=== PATIENT | female | born 1970 | race Caucasian/White ===

== ENCOUNTER 2023-04-11 19:46 | Outpatient (REF) | payer OTHER, SELFPAY ==
[2023-04-16 15:08] LABS: Age Gdln ACOG Testing Note (.); HPV Aptima Negative (Negative); IGP, Aptima HPV, rfx 16/18,45 Note (.)
== END 2023-04-11 19:47 | disposition home or self-care (01) ==
LOC: LAB 19:46
PROVIDERS: Visit Provider Obstetrics & Gynecology
DX: Z01.419 Encounter for gynecological examination (general) (routine) without abnormal findings (principal)
CPT/HCPCS: G0145

== ENCOUNTER 2023-05-30 07:51 | Outpatient (OUT) | payer OTHER, SELFPAY ==
--- NOTE | 2023-05-30 07:59 | MM_ITS ---
Patient Name: MARNIE THOMAS MR#: [id number] : 1970 Exam Date: 05/30/2023 Ordering Doctor: JACQUES CALLOWAY . RADIOLOGY REPORT PROCEDURE: MM TOMOSYNTHESIS SCREENING BI COMPARISON: MG MAMM SCREEN 3D GLORIA CAD, 01/06/2021. MG MAMM SCREEN GLORIA W CAD, 12/19/2019. MG MAMM SCREEN GLORIA W CAD, 10/21/2018. MG MAMM SCREEN GLORIA W CAD, 07/11/2013. INDICATIONS: Screening Calculator Name NCI Breast Cancer Risk Assessment Tool 5 Year Breast Cancer Risk 1.60% Lifetime Breast Cancer Risk 11.40% Personal Breast Cancer No Personal Ovarian Cancer No Treatments None Family Cancers Mother with lymphoma cancer at age 50; Mother with meningioma cancer at age 60. LOCATION: [facility] BREAST COMPOSITION: Scattered areas fibroglandular density. FINDINGS: DIAGNOSTIC CATEGORY 2--BENIGN FINDING: RIGHT BREAST: No significant suspicious finding. Scattered benign-appearing calcifications are present. Scattered benign-appearing lymph nodes are present. No significant change has occurred. LEFT BREAST: No significant suspicious finding. Scattered benign-appearing calcifications are present. Scattered benign-appearing lymph nodes are present. No significant change has occurred. RECOMMENDATIONS: ROUTINE MAMMOGRAM AND CLINICAL EVALUATION IN 12 MONTHS. PLEASE NOTE: A NORMAL MAMMOGRAM DOES NOT EXCLUDE THE POSSIBILITY OF BREAST CANCER. A CLINICALLY SUSPICIOUS PALPABLE LUMP SHOULD BE BIOPSIED. Dictated by: Demar Mills M.D. on 06/05/2023 at 11:55 Approved by: Demar Mills M.D. on 06/05/2023 at 11:59
--- NOTE | 2023-05-30 08:00 | XR_ITS ---
[place] [id number] Patient Name: MARNIE THOMAS MRN: [id number] date: 1970 Sex: F Assigned Patient Location: [facility] Current Patient Location: [facility] Accession/Order Number: [id number] Exam Date: 05/30/2023 08:15 Report Date: 05/30/2023 12:18 At the request of: HARMONY CALLOWAY Procedure: XR DEXA axial skeleton EXAM: XR DEXA axial skeleton HISTORY: Screening For Osteoporosis Z13.820 COMPARISON: None. TECHNIQUE: Routine DEXA scan lumbar spine and bilateral hips. FINDINGS: L1-L4: Bone mineral density 1.199 g/sq cm and T score 0.2 Left femoral neck: Bone mineral density 0.892 g/sq cm and T score -1.0 Left hip total: Bone mineral density 1.076 g/sq cm and T score 0.5 Right femoral neck: Bone mineral density 0.945 g/sq cm and T score -0.7 Right hip total: Bone mineral density 1.084 g/sq cm and T score 0.6 XR/XR DEXA axial skeleton IMPRESSION: Normal bone mineral density. Electronically authenticated by: PRETTY STUART Date: 05/30/2023 12:18
== END 2023-05-30 07:52 | disposition home or self-care (01) ==
LOC: MAMMO 07:51
PROVIDERS: Visit Provider Physician Assistant
DX: Z12.31 Encounter for screening mammogram for malignant neoplasm of breast (principal); Z13.820 Encounter for screening for osteoporosis; Z80.7 Family history of other malignant neoplasms of lymphoid, hematopoietic and related tissues; Z80.8 Family history of malignant neoplasm of other organs or systems
CPT/HCPCS: 77063; 77067; 77080

== ENCOUNTER 2024-04-14 20:37 | Outpatient (REF) | payer OTHER, SELFPAY ==
--- OUTSIDE RECORDS SUMMARY | 2024-04-14 20:42 | XMS_ITS | CCD ---
Author Organization [facility] Care Team Providers Care Receipt And Report Clerk Name Role Phone PATRICIA, DR HUGGINS Consulting Unavailable KARASIK, DR HUGGINS Admitting Unavailable DEFRANCE, DR GOTTI Primary Care Unavailable KARASIK, DR HUGGINS Attending Unavailable KARASIK, DR HUGGINS Attending Unavailable KARASIK, DR HUGGINS Consulting Unavailable DEFRANCE, DR GOTTI Primary Care Unavailable KARASIK, DR HUGGINS Admitting Unavailable ZIEBER, DR AMARI Gonzalez Consulting Unavailable ROSSAKIL Admitting Unavailable DEFRANCE, DR GOTTI Primary Care Unavailable AKIL RODRIGUEZ Attending Unavailable JENNIFER, AKIL Consulting Unavailable NILL, DR BAIN Admitting Unavailable DEFRANCE, DR GOTTI Primary Care Unavailable NILL, DR BAIN Attending Unavailable NILL, DR BAIN Consulting Unavailable DORKOSKJOSE GUADALUPE, DEIRDRE Consulting Unavailable Claire De Los Santos DO Primary Care Provider Ana María Mckeon Primary Care Provider CLAIRE DE LOS SANTOS Primary Care Unavailab le RAJA, JASIEL Referring Unavailable [facility] PARKCristian WHYTE Primary Care Provide r Ana María Mckeon Unavailable Ana María Mckeon Primary Care Provider CLAIRE DE LOS SANTOS Attending Unavailable ANA MARÍA MCKEON Primary Care Unavaila ble LYLY, ZEFERINO Referring Unavailable ANA MARÍA MCKEON Primary Care Unavaila ble LYLY, ZEFERINO Referring Unavailable ANA MARÍA MCKEON Primary Care Unavaila ble LYLY, ZEFERINO Referring Unavailable CLAIRE DE LOS SANTOS Primary Care Unavailab le RAJA, JASIEL Referring Unavailable SERIRMA, ROC Attending Unavailable ANA MARÍA MCKEON Primary Care Unavaila ble LYLY, ZEFERINO Referring Unavailable CLAIRE DE LOS SANTOS Primary Care Unavailab le RAJA, JASIEL Attending Unavailable RAJA, JASIEL Admitting Unavailable ANA MARÍA MCKEON Primary Care Unavaila ble KANDY VALLECILLO Attending Unavailable MELISSA HAILE Referring Unavailable DE YANETH, ANA MARÍA PEPPER Primary Care Unavaila ble LYLY, ZEFERINO Attending Unavailable DE YANETH, ANA MARÍA PEPPER Primary Care Unavaila ble LYLY, ZEFERINO Referring Unavailable DE YANETH, ANA MARÍA PEPPER Primary Care Unavaila ble DE YANETH, ANA MARÍA PEPPER Primary Care Unavaila ble DE YANETH, ANA MARÍA PEPPER Primary Care Unavaila ble RAJA, JASIEL Attending Unavailable DE YANETH, ANA MARÍA PEPPER Primary Care Unavaila ble RAJA, JASIEL Referring Unavailable DE YANETH, ANA MARÍA PEPPER Primary Care Unavaila ble RAJA, JASIEL Referring Unavailable DE YANETH, ANA MARÍA PEPPER Primary Care Unavaila ble RAJA, JASIEL Referring Unavailable DE YANETH, ANA MARÍA PEPPER Primary Care Unavaila ble RAJA, JASIEL Referring Unavailable DE YANETH, ANA MARÍA PEPPER Primary Care Unavaila ble LYLY, ZEFERINO Referring Unavailable DE YANETH, ANA MARÍA PEPPER Primary Care Unavaila ble LYLY, ZEFERINO Referring Unavailable DE YANETH, ANA MARÍA PEPPER Primary Care Unavaila ble LYLY, ZEFERINO Referring Unavailable DE YANETH, ANA MARÍA PEPPER Primary Care Unavaila ble LYLY, ZEFERINO Referring Unavailable DE YANETH, ANA MARÍA PEPPER Primary Care Unavaila ble LYLY, ZEFERINO Referring Unavailable DE YANETH, ANA MARÍA PEPPER Primary Care Unavaila ble LYLY, ZEFERINO Referring Unavailable DE YANETH, ANA MARÍA PEPPER Primary Care Unavaila ble LYLY, ZEFERINO Attending Unavailable DE YANETH, ANA MARÍA PEPPER Primary Care Unavaila ble LYLY, ZEFERINO Referring Unavailable DE YANETH, ANA MARÍA PEPPER Primary Care Unavaila ble LYLY, ZEFERINO Referring Unavailable DE YANETH, ANA MARÍA PEPPER Primary Care Unavaila ble LYLY, ZEFERINO Referring Unavailable DE YANETH, ANA MARÍA PEPPER Primary Care Unavaila ble LYLY, ZEFERINO Referring Unavailable DE YANETH, ANA MARÍA PEPPER Primary Care Unavaila ble LYLY, ZEFERINO Attending Unavailable DE YANETH, ANA MARÍA PEPPER Primary Care Unavaila ble DAVID DSOUZA Attending Unavailable DE YANETH, ANA MARÍA PEPPER Primary Care Unavaila ble KANDY VALLECILLO Attending Unavailable DE YANETH, ANA MARÍA PEPPER Primary Care Unavaila ble LYLY, ZEFERINO Attending Unavailable LYLY, ZEFERINO Referring Unavailable DE YANETH, ANA MARÍA PEPPER Primary Care Unavaila ble DE YANETH, ANA MARÍA PEPPER Primary Care Unavaila ble LYLY, ZEFERINO Attending Unavailable KANDY VALLECILLO Referring Unavailable DE YANETH, ANA MARÍA PEPPER Primary Care Unavaila ble SERHAL, ROC Referring Unavailable DE YANETH, ANA MARÍA PEPPER Primary Care Unavaila ble SERHAL, ROC Referring Unavailable QUINTEN RUIZ Attending Unavailable DE YANETH, ANA MARÍA PEPPER Primary Care Unavaila ble DE YANETH, ANA MARÍA PEPPER Primary Care Unavaila ble LYLY, ZEFERINO Attending Unavailable DE YANETH, ANA MARÍA PEPPER Primary Care Unavaila ble LYLY, ZEFERINO Referring Unavailable CLAIRE DE LOS SANTOS Primary Care Unavailab DAVID Williamson Attending Unavailable DE YANETH, ANA MARÍA PEPPER Primary Care Unavaila ble LYLY, ZEFERINO Attending Unavailable DE YANETH, ANA MARÍA PEPPER Primary Care Unavaila ble LYLY, ZEFERINO Referring Unavailable DE YANETH, ANA MARÍA PEPPER Primary Care Unavaila ble LYLY, ZEFERINO Referring Unavailable DE YANETH, ANA MARÍA PEPPER Primary Care Unavaila ble LYLY, ZEFERINO Referring Unavailable DE YANETH, ANA MARÍA PEPPER Primary Care Unavaila ble LYLY, ZEFERINO Referring Unavailable DE YANETH, ANA MARÍA PEPPER Primary Care Unavaila ble LYLY, ZEFERINO Attending Unavailable DE YANETH, ANA MARÍA PEPPER Primary Care Unavaila ble LYLY, ZEFERINO Referring Unavailable DE YANETH, ANA MARÍA PEPPER Primary Care Unavaila ble WEGAKANDY Strickland Referring Unavailable DE YANETH, ANA MARÍA PEPPER Primary Care Unavaila ble LYLY, ZEFERINO Referring Unavailable DE YANETH, ANA MARÍA PEPPER Primary Care Unavaila ble DE YANETH, ANA MARÍA PEPPER Primary Care Unavaila ble LYLY, ZEFERINO Attending Unavailable LYLY, ZEFERINO Referring Unavailable DE YANETH, ANA MARÍA PEPPER Primary Care Unavaila ble LYLY, ZEFERINO Attending Unavailable DE YANETH, ANA MARÍA PEPPER Primary Care Unavaila ble LYLY, ZEFERINO Referring Unavailable DE YANETH, ANA MARÍA PEPPER Primary Care Unavaila ble LYLY, ZEFERINO Referring Unavailable DE YANETH, ANA MARÍA PEPPER Primary Care Unavaila ble LYLY, ZEFERINO Referring Unavailable DE YANETH, ANA MARÍA PEPPER Primary Care Unavaila ble LYLY, ZEFERINO Referring Unavailable CLAIRE DE LOS SANTOS Primary Care Unavailab le DAVE TURNERA Attending Unavailable CLAIRE DE LOS SANTOS Primary Care Unavailab le RAJA, JASIEL Referring Unavailable CLAIRE DE LOS SANTOS Primary Care Unavailab le YUE, JASIEL Referring Unavailable CRISTIAN TEIXEIRA Attending Unavailable CRISTIAN TEIXEIRA Referring Unavailable CRISTIAN TEIXEIRA Primary Care Unavailable CRISTIAN TEIXEIRA Attending Unavailable CRISTIAN TEIXEIRA Referring Unavailable CRISTIAN TEIXEIRA Primary Care Unavailable Medications Current Medications Medication Drug Class(es) Dates Sig (Normalized) Sig (Original) acetaminophen 500 mg oral tablet (4 sources) Start: 09-15-2023 End: 09-22-2023 take 2 tablets by mouth every six hours acetaminophen (TYLENOL) 500 mg tablet Indications: Postoperative pain , Thymoma , Myasthenia gravis without exacerbation (HCC) Take 2 tablets by mouth every 6 hours for 7 days. 56 tablet 0 09/15/2023 09/22/2023 Active Comment on above: Take 2 tablets by [facility] every 6 hours for 7 days. cholecalciferol, vitamin D3, (VITAMIN D3 ORAL) (20 sources) cholecalciferol, vitamin D3, (VITAMIN D3 ORAL) Take by mouth once daily. Active cholecalciferol, vitamin D3, (VITAMIN D3 ORAL) Take by mouth once daily. 0 Active cholecalciferol, vitamin D3, (VITAMIN D3 ORAL) Take by mouth. 0 Active Comment on above: Take by mouth. iv contrast (will be provided with radiology test) (6 sources) Start: 10-29-2023 End: 10-30-2023 iv contrast (will be provide d with radiology test) CT Chest W -Inject, intravenously, once for 1 dose.No IV access, insert saline lock prior to the beginning of sedation, infusion, injection of imaging exam. Discontinue saline lock post exam. If Pt. has a central line or IVAD, may access for administration according to line specific nursing protocol. Once exam is complete flush line and de-access according to line specific nursing protocol in the CT contrast administration guidelines link. 1 Each 0 10/29/2023 10/30/2023 Active Start: 10-11-2023 End: 10-12-2023 iv contrast (will be provide d with radiology test) CT Chest W -Inject, intravenously, once for 1 dose.No IV access, insert saline lock prior to the beginning of sedation, infusion, injection of imaging exam. Discontinue saline lock post exam. If Pt. has a central line or IVAD, may access for administration according to line specific nursing protocol. Once exam is complete flush line and de-access according to line specific nursing protocol in the CT contrast administration guidelines link. 1 Each 10/11/2023 10/12/2023 Start: 10-11-2023 End: 10-12-2023 iv contrast (will be provide d with radiology test) CT Chest W -Inject, intravenously, once for 1 dose.No IV access, insert saline lock prior to the beginning of sedation, infusion, injection of imaging exam. Discontinue saline lock post exam. If Pt. has a central line or IVAD, may access for administration according to line specific nursing protocol. Once exam is complete flush line and de-access according to line specific nursing protocol in the CT contrast administration guidelines link. 1 Each 0 10/11/2023 10/12/2023 Start: 10-11-2023 End: 10-12-2023 iv contrast (will be provide d with radiology test) CT Chest W -Inject, intravenously, once for 1 dose.No IV access, insert saline lock prior to the beginning of sedation, infusion, injection of imaging exam. Discontinue saline lock post exam. If Pt. has a central line or IVAD, may access for administration according to line specific nursing protocol. Once exam is complete flush line and de-access according to line specific nursing protocol in the CT contrast administration guidelines link. 1 Each 0 10/11/2023 10/12/2023 Active Comment on above: CT Chest W -Inject, intravenously, once for 1 dose.No IV access, insert saline lock prior to the beginning of sedation, infusion, injection of imaging exam. Discontinue saline lock post exam. If Pt. has a central line or IVAD, may access for administration according to line specific nursing protocol. Once exam is complete flush line and de-access according to line specific nursing protocol in the CT contrast administration guidelines link. oxyCODONE hydrochloride 5 mg oral tablet (4 sources) Opioid Agonist Start: 09-15-19 End: 09-22-19 take 1 tablet by mouth every six hours as needed for pain oxyCODONE IR (ROXICODONE) 5 mg immediate release tablet Indications: Myasthenia gravis (HCC) , Postoperative pain , Thymoma Take 1 tablet by mouth every 6 hours as needed for pain for up to 7 days. 28 tablet 0 09/15/2023 09/22/2023 Active Comment on above: Take 1 tablet by [facility] every 6 hours as needed for pain for up to 7 days. polyethylene glycol 3350 61060 mg powder for oral solution (4 sources) Osmotic Laxative Start: 09-15-19 End: 09-22-19 polyethylene glycol 3350 17 gram packet Take 1 Packet by mouth once daily for 7 days. For prevention of postoperative opioid induced constipation.. Dissolve dose in 4 - 8 ounces of liquid and take as directed. 7 Packet 0 09/15/2023 09/22/2023 Active Comment on above: Take 1 Packet by [facility] once daily for 7 days. For prevention of postoperative opioid induced constipation.. Dissolve dose in 4 - 8 ounces of liquid and take as directed. predniSONE 2.5 mg oral tablet (20 sources) Start: 02-06-20 End: 03-07-20 take 1 tablet by mouth once daily predniSONE (DELTASONE) 2.5 mg tablet Take 1 tablet by mouth once daily. 30 tablet 0 02/06/2024 03/07/2024 Active Start: 10-29-2023 End: 04-26-2024 take 1.5 tablets by mouth once daily predniSONE (DELTASONE) 10 mg tablet Take 1.5 tablets by mouth once daily. 135 tablet 1 10/29/2023 04/26/2024 Active Start: 07-23-2023 End: 02-26-2024 take 2 tablets by mouth once daily predniSONE (DELTASONE) 10 mg tablet Take 2 tablets by mouth once daily. 180 tablet 1 08/30/2023 10/29/2023 Discontinued Comment on above: Take 2 tablets by [facility] once daily. Completed/Discontinued Medications Medication Drug Class(es) Dates Sig (Normalized) Sig (Original) ibuprofen 600 mg oral tablet (20 sources) Nonsteroidal Anti-inflammatory Drug Start: 09-15-2023 End: 11-29-2023 take 1 tablet by mouth every six hours as needed for pain ibuprofen (MOTRIN) 600 mg tablet Indications: Myasthenia gravis (HCC) , Postoperative pain , Thymoma Take 1 tablet by mouth every 6 hours as needed for pain. 60 tablet 09/15/2023 11/29/2023 Discontinued Comment on above: Take 1 tablet by [facility] every 6 hours as needed for pain. mupirocin 0.02 mg/mg topical ointment (1 source) RNA Synthetase Inhibitor Antibacterial Start: 09-12-2023 mupirocin (BACTROBAN) 2 % ointment Apply a small amount in each nostril using a cotton swab twice the day before surgery and once the morning of surgery. 22 g 0 09/12/2023 Active Comment on above: Apply a small amount in each nostril using a cotton swab twice the day before surgery and once the morning of surgery. pyridostigmine bromide 30 mg oral tablet (20 sources) Start: 08-07-2023 End: 02-26-2024 take 1 tablet by mouth four times daily pyRIDostigmine bromide 30 mg tab Take 1 tablet by mouth four times daily. 360 tablet 1 08/30/2023 02/26/2024 Comment on above: Take 1 tablet by [facility] four times daily. Problems Active Problems Problem Classification Problem Date Documented Date Episodic/Chronic Cancer; other and unspecified primary (2 sources) Malignant tumor of thymus; Translations: [Malignant neoplasm of thymus] 10-29-2023 Chronic Cancer; other and unspecified primary (1 source) Malignant neoplasm of thymus; Translations: [Malignant neoplasm of thymus (HCC)] Onset: 10-16-2023 Chronic Immunizations and screening for infectious disease (5 sources) Encounter for immunization; Translations: [Encounter for screening for human papillomavirus (HPV)] Onset: 12-14-2020 Episodic Other aftercare (1 source) Surgical follow-up; Translations: [Encounter for follow-up examination after completed treatment for conditions other than malignant neoplasm] 09-21-2023 Episodic Other and unspecified benign neoplasm (1 source) Benign neoplasm of thymus; Translations: [Benign neoplasm of thymus] 09-12-2023 Episodic Other liver diseases (1 source) Lesion of liver; Translations: [Liver disease, unspecified] 08-28-2023 Chronic Other liver diseases (2 sources) Liver disease, unspecified; Translations: [Lesion of liver] Onset: 08-06-2023 Chronic Other nervous system disorders (12 sources) Myasthenia gravis; Translations: [Myasthenia gravis without (acute) exacerbation] Onset: 06-13-2023 08-24-2023 Chronic Other nervous system disorders (20 sources) Myasthenia gravis without exacerbation; Translations: [Myasthenia gravis without (acute) exacerbation] 09-14-2023 Chronic Other nervous system disorders (3 sources) Myasthenia gravis without (acute) exacerbation; Translations: [Myasthenia gravis without exacerbation (HCC)] Onset: 08-17-2023 Chronic Other upper respiratory disease (1 source) Mediastinal mass; Translations: [Other diseases of mediastinum, not elsewhere classified] 08-28-2023 Episodic Thyroid disorders (20 sources) Multinodular goiter; Translations: [Nontoxic multinodular goiter] Onset: 08-18-2023 08-18-2023 Chronic Unclassified (1 source) Annual Exam Onset: 09-05-2023 Past or Other Problems Problem Classification Problem Date Documented Date Episodic/Chronic Mood disorders (2 sources) Mood disorders Onset: 02-04-2020 02-04-2020 Neoplasms of unspecified nature or uncertain behavior (20 sources) Thymoma; Translations: [Neoplasm of unspecified behavior of other specified sites] Onset: 09-13-2023 09-14-2023 Episodic Other aftercare (1 source) Encounter for follow-up examination after completed treatment for conditions other than malignant neoplasm; Translations: [Follow-up examination following surgery] Onset: 09-21-2023 Episodic Other nervous system disorders (20 sources) Postoperative pain ; Translations: [Other acute postprocedural pain] Onset: 09-13-2023 09-14-2023 Episodic Other nervous system disorders (1 source) Other acute postprocedural pain; Translations: [Postoperative pain] Onset: 09-14-2023 Episodic Other screening for suspected conditions (not mental disorders or infectious disease) (20 sources) Encounter for screening for malignant neoplasm of colon; Translations: [Encounter for screening mammogram for malignant neoplasm of breast] Onset: 12-07-2020 Episodic Other upper respiratory disease (2 sources) Other diseases of mediastinum, not elsewhere classified; Translations: [Mediastinal mass] Onset: 08-17-2023 Episodic Residual codes; unclassified (1 source) Acquired absence of both cervix and uterus; Translations: [ACQUIRED ABSENCE BOTH CERVIX AND UTERUS] Onset: 01-26-2021 Episodic Residual codes; unclassified (1 source) Asymptomatic menopausal state; Translations: [ASYMPTOMATIC MENOPAUSAL STATE] Onset: 01-14-2021 Episodic Residual codes; unclassified (1 source) Family history of other malignant neoplasms of lymphoid, hematopoietic and related tissues; Translations: [FAM HX OTH MAL ENID LYMPH HEMATPOETC] Onset: 01-14-2021 Episodic Residual codes; unclassified (1 source) Family history of malignant neoplasm of other organs or systems; Translations: [FAM HX MALIG NEOPLASM OTH ORGN/SYS] Onset: 01-14-2021 Episodic Residual codes; unclassified (20 sources) Problem with continuity of care; Translations: [Problem with continuity of care] Onset: 09-13-2023 09-14-2023 Episodic Unclassified (2 sources) Onset: 02-04-2020 02-04-2020 Results Test Name Value Interpretation Reference Range Facility [facility] 02-06-2024 CNOV Office Visit (NENMMN ) ----- MARNIE ARANA ([id number]) 1970 F Date Time Provider Department 02/06/24 11:30 AM QUINTEN RUIZ During your visit today, we recorded the following information about you: Pulse Blood pressure Weight Height 63/minute 141/76 101.5 kg 1.6 m Quinten Ruiz MD 02/08/2024 9:57 AM Signed I saw Marnie Arana at the [facility] on 02/06/24 in follow up for thymomatous seropositive MG (ocular). HPI: Ms. 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 At that visit was undergoing radiation for thymoma. Ocular MG symptoms very well controlled so weaned prednisone down to 10 mg/day. Since their last visit: Prednisone adriana reduced to 10 mg/day Finished radiation! Going to be monitoring tymoma with CT scans. Regarding her MG symptoms her vision has been basically normal. She only used mestinon once in the morning. Hasn't needed a second mestinon dose in a long time. No double vision or blurry vision. No needing prisms any more. No eyelid ptosis. No other symptoms of MG. Does have some dyspepsia. Weight is down. 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 ROS: Pertinent positive and negative systems reviewed in HPI. Medications: Current Outpatient Medications Medication Sig ibuprofen (MOTRIN) 600 mg tablet Take 1 tablet by mouth every 6 hours as needed for pain. predniSONE (DELTASONE) 10 mg tablet Take 1.5 tablets by mouth once daily. cholecalciferol, vitamin D3, (VITAMIN D3 ORAL) Take by mouth once daily. pyRIDostigmine bromide 30 mg tab Take 1 tablet by mouth four times daily. No current facility-administered medications for this visit. Allergies: ALLERGIES No Known Allergies Exam: 02/06/24 1125 BP: 141/76 BP Site: Right Arm BP Position: Sitting BP Cuff Size: Regular Adult Pulse: 63 SpO2: 96% Weight: 101.5 kg (223 lb 12.8 oz) Height: 160 cm (5' 3 ) Gen: appears stated age, no acute distress Neuro: MS: awake, alert, oriented to detailed history. Language fluent. Cranial nerves: No ocular misalingment on cross cover. EOMI. No eye closure weakness. Lower facial muscles and tongue strong. No dysarthria. Head flexion full strength. Motor: Muscle bulk and tone normal. Strength proximally and distally in all four extremities was 5/5. Coordination: No evidence of ataxia Gait: Casual gait normal. 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 Neurologic exam is normal so would classify currently as pharmacologic remission. Will continue slow steroid taper and monitor for any symptom recurrence. Plan: Reduce prednisone to 7.5 mg x 1 month Then reduce prednisone to 5 mg until follow up (refills through [facility]) Continue pyridostigmine PRN Continue vitamin D RV in 2-3 months Quinten Ruiz MD Neurological [facility] [address] [place] [address] I spent a total of 30 minutes on the date of the service which included preparing to see the patient, [id number] patient care, completing clinical documentation, obtaining and/or reviewing separately obtained history, performing a medically appropriate examination, counseling and educating the patient/family/caregiver, and ordering medications, tests, or procedures. Answers submitted by the patient for this visit: Activities of Daily Living (MG-ADL) (Submitted on 01/30/2024) Talkin=Normal Chewin=Normal Swallowin=Normal Breathin=Normal Impairment of ability to brush teeth or comb hair: 0=None Impairment of ability to rise from a chair: 0=None Double vision: 1=Occurs, but not daily Eyelid droop: 0=None Quinten Ruiz MD 02/06/2024 11:57 AM Signed Our plan: Continue the pyridostigmine Feb 06: go down on prednisone to 7.5 mg per day x 1 month After a month if symptoms are still well controlled go down to 5 mg per day until your follow up with me (apr 29) Let me know when you need a refill on the prednisone and I can update the prescription for 5 mg tablets through [facility] Continue vitamin D while on steroids Allergies As of Date: 02/06/2024 (No Known Allergies) Date Reviewed: 02/06/2024 Reviewed by: Gurjit Flores LPN - Fully Assessed Reason for Visit: Established Patient [[id number]] Primary Visit Diagnosis:Myasthenia gravis ([facility]) [G70.00] Order(s):predniSONE (DELTASONE) 2.5 mg tabletTake 1 tablet by mouth once daily.Disp: 30 tabletRfl: 0 Prescriptions as of 02/08/2024 - predniSONE (DELTASONE) 2.5 mg tablet Take 1 tablet by mouth once daily. - ibuprofen (MOTRIN) 600 mg tablet Take 1 tablet by mouth every 6 (more content not included)... Normal [facility] CNOVon 01-03-2024 CNOV Office Visit (RADTSA ) ----- SUMITMARNIE LEVY ([id number]) 1970 F Date Time Provider Department 01/03/24 2:00 PM ZEFERINO DESOUZA RADTSA During your visit today, we recorded the following information about you: Temperature Pulse Respiration Blood pressure 97.6 degrees 74/minute 18/minute 127/71 Weight 104.7 kg Zeferino Desouza MD 01/15/2024 5:38 AM Addendum Radiation Oncology - Follow Up Note PATIENT NAME: Marnie Arana PATIENT DIAGNOSIS/PATIENT IDENTIFICATION: Ms. Arana is a 53-year-old woman diagnosed with Stage I, [id number] (AJCC)/Stage IIa ([place]) thymoma (Type AB) status post bilateral robotic-assisted VATS total thymectomy on 09/13/[address] Turner. 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 Tumor was noted to be present at the anterior and posterior margins of the specimen (R1). She completed a course of post-operative radiation therapy to the post-operative bed/chest on 11/30/2023 (5400 cGy delivered in 27 fractions). Ms. Arana returns to clinic today for routine follow-up approximately one month after the completion of her radiation treatments. In the interim, she continues to do well and denies any pain/discomfort in the neck/upper chest and reports no skin issues or sore throat and is able to swallow well. She reports no change in her breathing and has developed no cough and has intact voice. She does endorse good energy good appetite and hydration and stable weight. She continues to work on her vision issues with her neurology team and continues on pyridostigmine and is being weaned off her prednisone. Ms. Arana well approximately 1 month out with no new issues related to her radiation treatment to the chest. She is scheduled for initial posttreatment imaging with CT of the chest on 04/29/2024 and has follow-up with her thoracic surgery team to review results. I will plan to see her back in approximately 4 months for follow-up. The patient is aware to contact the clinic in the interim should any questions or concerns arise. Thank you for allowing us to participate in the care of this patient. Signed by: Zeferino Desouza MD This document has been created with the use of voice recognition technology. It may contain inaccuracies, misspellings, inaccurate syntax or inappropriate word context that are a result of the inadequacies/shortcomings of said technology/software. Allergies As of Date: 01/03/2024 (No Known Allergies) Date Reviewed: 01/03/2024 Reviewed by: Ksenia Carrillo MA - Fully Assessed Reason for Visit: thymoma [Other] Cmt: Follow up Primary Visit Diagnosis:Thymoma [D49.89] Prescriptions as of 01/15/2024 - ibuprofen (MOTRIN) 600 mg tablet Take 1 tablet by mouth every 6 hours as needed for pain. - predniSONE (DELTASONE) 10 mg tablet Take 1.5 tablets by mouth once daily. - cholecalciferol, vitamin D3, (VITAMIN D3 ORAL) Take by mouth once daily. - pyRIDostigmine bromide 30 mg tab Take 1 tablet by mouth four times daily. Problem List As Of Date 01/03/2024 Noted Resolved Multiple thyroid nodules [E04.2] 08/18/2023 Abnormal results of thyroid function studies [R*08/18/2023 Thymoma [D49.89] 09/13/2023 Postoperative pain [G89.18] 09/13/2023 Summary [Z91.199] 09/13/2023 Myasthenia gravis without exacerbation (HCC) [G* Follow-up and Disposition History for Encounter Date Provider Department Center 01/03/2024 [id number] DESOUZA Sondra Encounter Status:Closed by ZEFERINO DESOUZA on 01/14/24 [facility] 12-18-2023 [facility] Telephone ([facility]) ----- MARNIE ARANA ([id number]) 1970 F Date Time Provider Department 12/18/23 DILCIA PRICE During your visit today, we recorded the following information about you: Dilcia Price RN 12/18/2023 9:26 AM Signed Call placed to pt to check status post XRT. Pt states overall she is doing great. She has had no issues at all after treatment. She states I feel so good, it makes me wonder if it worked. She is currently on vacation and doing well. She will see Dr Desouza as scheduled on 01/02. AGATHA Garcia Saju, MD 12/18/2023 10:40 AM Signed Thanks! Zeferino Allergies As of Date: 12/18/2023 (No Known Allergies) Date Reviewed: 11/28/2023 Reviewed by: Dilcia Price RN - Fully Assessed Reason for Visit: Patient Update [1234] Cmt: Post Radiation Nurse Call Prescriptions as of 12/18/2023 - ibuprofen (MOTRIN) 600 mg tablet Take 1 tablet by mouth every 6 hours as needed for pain. - predniSONE (DELTASONE) 10 mg tablet Take 1.5 tablets by mouth once daily. - cholecalciferol, vitamin D3, (VITAMIN D3 ORAL) Take by mouth once daily. - pyRIDostigmine bromide 30 mg tab Take 1 tablet by mouth four times daily. Problem List As Of Date 12/18/2023 Noted Resolved Multiple thyroid nodules [E04.2] 08/18/2023 Abnormal results of thyroid function studies [R*08/18/2023 Thymoma [D49.89] 09/13/2023 Postoperative pain [G89.18] 09/13/2023 Summary [Z91.199] 09/13/2023 Myasthenia gravis without exacerbation (HCC) [G* Encounter Status:Closed by DILCIA PRICE on 12/18/23 [facility] CNOVon 11-28-2023 CNOV Office Visit (RADTSA ) ----- SUMITMARNIE LEVY ([id number]) 1970 F Date Time Provider Department 11/28/23 2:30 PM ZEFERINO DESOUZA During your visit today, we recorded the following information about you: Temperature Pulse Respiration Blood pressure 96.7 degrees 64/minute 18/minute 128/81 Weight 104.4 kg Zeferino Desouza MD 12/03/2023 7:53 PM Signed Radiation Oncology - On Treatment Review (OTR) Note PATIENT NAME: Marnie Arana PATIENT DIAGNOSIS: Ms. Arana is a 53-year-old woman diagnosed with Stage I, [id number] (AJCC)/Stage IIa ([place]) thymoma (Type AB) status post bilateral robotic-assisted VATS total thymectomy on 09/13/[address] Turner. 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 Tumor was noted to be present at the anterior and posterior margins of the specimen (R1). PROTOCOL: no COURSE: post-operative Current dose: 5000 cGy in 25 fx Planned dose: 5400 cGy in 27 fx SUBJECTIVE: Tolerating XRT well and denies any pain/discomfort in the upper chest or neck and reports no skin irritation or breakdown and reports swallowing well without issues. She has no change in her breathing and reports no cough or voice changes. She endorses good energy as she continues to work good appetite and hydration and stable weight. She has been working with her neurology team and reports improvement in her vision after adjusting her medications. PHYSICAL EXAM: Area Assessed: Chest KPS: 90 General Appearance: Alert and oriented. No acute distress. Chest: No respiratory distress. IMAGING/LAB RESULTS: None TOXICITY ASSESSMENT (CTC v4.0): Fatigue: grade 0 - No symptoms Weight loss: grade 0 - No weight loss Nausea:Grade 0 - No Symptoms Radiation Dermatitis:grade 0 - No symptoms Dysphagia: grade 0 - No symptoms Esophageal Pain: Grade 0 - No symptoms Dyspnea: grade 0 (No symptoms) Treatment chart checked: Yes Patient treatment site reviewed and verified:Yes Port films reviewed and current:Yes Medications started: None ASSESSMENT/PLAN: Clinically stable. Toxicity within expected parameters. Continue radiation treatment as planned. Zeferino Desouza MD Allergies As of Date: 11/28/2023 (No Known Allergies) Date Reviewed: 11/28/2023 Reviewed by: Dilcia Price RN - Fully Assessed Reason for Visit: Radiotherapy On-treatment Visit [1722] Primary Visit Diagnosis:Thymoma [D49.89] Prescriptions as of 12/03/2023 - ibuprofen (MOTRIN) 600 mg tablet Take 1 tablet by mouth every 6 hours as needed for pain. - predniSONE (DELTASONE) 10 mg tablet Take 1.5 tablets by mouth once daily. - cholecalciferol, vitamin D3, (VITAMIN D3 ORAL) Take by mouth once daily. - pyRIDostigmine bromide 30 mg tab Take 1 tablet by mouth four times daily. Problem List As Of Date 11/28/2023 Noted Resolved Multiple thyroid nodules [E04.2] 08/18/2023 Abnormal results of thyroid function studies [R*08/18/2023 Thymoma [D49.89] 09/13/2023 Postoperative pain [G89.18] 09/13/2023 Summary [Z91.199] 09/13/2023 Myasthenia gravis without exacerbation (HCC) [G* Encounter Status:Closed by ZEFERINO DESOUZA on 12/03/23 [facility] CNOVon 11-21-2023 CNOV Office Visit (RADTSA ) ----- MARNIE ARANA ([id number]) 1970 F Date Time Provider Department 11/21/23 2:30 PM ZEFERINO DESOUZA RADTSA During your visit today, we recorded the following information about you: Temperature Pulse Respiration Blood pressure 97.2 degrees 65/minute 16/minute 128/84 Weight 103.5 kg Zeferino Desouza MD 12/03/2023 5:08 PM Signed Radiation Oncology - On Treatment Review (OTR) Note PATIENT NAME: Marnie Arana PATIENT DIAGNOSIS: Ms. Arana is a 53-year-old woman diagnosed with Stage I, [id number] (AJCC)/Stage IIa ([place]) thymoma (Type AB) status post bilateral robotic-assisted VATS total thymectomy on 09/13/[address] Turner. 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 Tumor was noted to be present at the anterior and posterior margins of the specimen (R1). PROTOCOL: no COURSE: post-operative Current dose: 4000 cGy in 20 fx Planned dose: 5400 cGy in 27 fx SUBJECTIVE: Tolerating XRT well denies any pain/discomfort in the chest or neck and reports no skin irritation or itching. She denies any change in breathing or cough or any trouble with voice and continues to swallow well without issues. She endorses good energy appetite and hydration with stable weight that she continues to work. PHYSICAL EXAM: Area Assessed: Chest KPS: 90 General Appearance: Alert and oriented. No acute distress. Chest: No respiratory distress. IMAGING/LAB RESULTS: None TOXICITY ASSESSMENT (CTC v4.0): Fatigue: grade 0 - No symptoms Weight loss: grade 0 - No weight loss Nausea:Grade 0 - No Symptoms Radiation Dermatitis:grade 0 - No symptoms Dysphagia: grade 0 - No symptoms Esophageal Pain: Grade 0 - No symptoms Dyspnea: grade 0 (No symptoms) Treatment chart checked: Yes Patient treatment site reviewed and verified:Yes Port films reviewed and current:Yes Medications started: None ASSESSMENT/PLAN: Clinically stable. No signs of toxicity. Continue radiation treatment as planned. MD Mohinder Man Ariana, LPN 11/21/2023 2:52 PM Signed Status: Post-menopausal. Allergies As of Date: 11/21/2023 (No Known Allergies) Date Reviewed: 11/21/2023 Reviewed by: Marian Vines LPN - Fully Assessed Reason for Visit: Radiotherapy On-treatment Visit [172] Primary Visit Diagnosis:Thymoma [D49.89] Prescriptions as of 12/03/2023 - ibuprofen (MOTRIN) 600 mg tablet Take 1 tablet by mouth every 6 hours as needed for pain. - predniSONE (DELTASONE) 10 mg tablet Take 1.5 tablets by mouth once daily. - cholecalciferol, vitamin D3, (VITAMIN D3 ORAL) Take by mouth once daily. - pyRIDostigmine bromide 30 mg tab Take 1 tablet by mouth four times daily. Problem List As Of Date 11/21/2023 Noted Resolved Multiple thyroid nodules [E04.2] 08/18/2023 Abnormal results of thyroid function studies [R*08/18/2023 Thymoma [D49.89] 09/13/2023 Postoperative pain [G89.18] 09/13/2023 Summary [Z91.199] 09/13/2023 Myasthenia gravis without exacerbation (HCC) [G* Visit Notes: >> Marian Vines LPN SunNovember 21, 2023 2:51 PM Status: Signed Status: Post-menopausal. Encounter Status:Closed by ZEFERINO DESOUZA on 12/03/[address] [facility] CNOVon 11-14-2023 CNOV Office Visit (RADTSA ) ----- MARNIE ARANA ([id number]) 1970 F Date Time Provider Department 11/14/23 2:30 PM ZEFERINO DESOUZA RADTSA During your visit today, we recorded the following information about you: Temperature Pulse Respiration Blood pressure 97 degrees 69/minute 16/minute 134/64 Weight 102.6 kg Zeferino Desouza MD 11/27/2023 6:18 AM Addendum Radiation Oncology - On Treatment Review (OTR) Note PATIENT NAME: Marnie Arana PATIENT DIAGNOSIS: Ms. Arana is a 53-year-old woman diagnosed with Stage I, [id number] (AJCC)/Stage IIa ([place]) thymoma (Type AB) status post bilateral robotic-assisted VATS total thymectomy on 09/13/[address] Turner. 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 Tumor was noted to be present at the anterior and posterior margins of the specimen (R1). PROTOCOL: no COURSE: post-operative Current dose: 3000 cGy in 15 fx Planned dose: 5400 cGy in 27 fx SUBJECTIVE: Tolerating XRT well and denies any pain/discomfort in the chest/throat and denies any skin irritation or breakdown. She reports being able to swallow well and eat all consistencies and no choking sensation and reports no issues with breathing or cough. She endorses stable energy as she continues to work with good appetite and hydration and stable weight. PHYSICAL EXAM: Area Assessed: Chest KPS: 90 General Appearance: Alert and oriented. No acute distress. Chest: No respiratory distress. IMAGING/LAB RESULTS: None TOXICITY ASSESSMENT (CTC v4.0): Fatigue: grade 0 - No symptoms Weight loss: grade 0 - No weight loss Nausea:Grade 0 - No Symptoms Radiation Dermatitis:grade 0 - No symptoms Dysphagia: grade 0 - No symptoms Esophageal Pain: Grade 0 - No symptoms Dyspnea: grade 0 (No symptoms) Treatment chart checked: Yes Patient treatment site reviewed and verified:Yes Port films reviewed and current:Yes Medications started: None ASSESSMENT/PLAN: Clinically stable. Toxicity within expected parameters. Continue radiation treatment as planned. Zeferino Desouza MD Allergies As of Date: 11/14/2023 (No Known Allergies) Date Reviewed: 11/14/2023 Reviewed by: Radha Layne RN - Fully Assessed Primary Visit Diagnosis:Thymoma [D49.89] Prescriptions as of 11/27/2023 - predniSONE (DELTASONE) 10 mg tablet Take 1.5 tablets by mouth once daily. - cholecalciferol, vitamin D3, (VITAMIN D3 ORAL) Take by mouth once daily. - ibuprofen (MOTRIN) 600 mg tablet Take 1 tablet by mouth every 6 hours as needed for pain. - pyRIDostigmine bromide 30 mg tab Take 1 tablet by mouth four times daily. Problem List As Of Date 11/14/2023 Noted Resolved Multiple thyroid nodules [E04.2] 08/18/2023 Abnormal results of thyroid function studies [R*08/18/2023 Thymoma [D49.89] 09/13/2023 Postoperative pain [G89.18] 09/13/2023 Summary [Z91.199] 09/13/2023 Myasthenia gravis without exacerbation (HCC) [G* Encounter Status:Closed by ZEFERINO DESOUZA on 11/26/[address] [facility] CNOVon 11-07-2023 CNOV Office Visit (RADTSA ) ----- MARNIE ARANA ([id number]) 1970 F Date Time Provider Department 11/07/23 2:30 PM ZEFERINO DESOUZA During your visit today, we recorded the following information about you: Temperature Pulse Respiration Blood pressure 97 degrees 66/minute 16/minute 122/69 Weight 102.6 kg Zeferino Desouza MD 11/07/2023 3:37 PM Signed Radiation Oncology - On Treatment Review (OTR) Note PATIENT NAME: Marnie Arana PATIENT DIAGNOSIS: Ms. Arana is a 53-year-old woman diagnosed with Stage I, [id number] (AJCC)/Stage IIa ([place]) thymoma (Type AB) status post bilateral robotic-assisted VATS total thymectomy on 09/13/[address] Turner. 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 Tumor was noted to be present at the anterior and posterior margins of the specimen (R1). PROTOCOL: no COURSE: post-operative Current dose: 2000 cGy in 10 fx Planned dose: 5400 cGy in 27 fx Status: History of hysterectomy SUBJECTIVE: Tolerating surgery well and denies any significant changes from last week. She reports no skin irritation or itching or dryness in the treatment area and denies any chest discomfort. She reports no change in her breathing and denies any cough or hemoptysis or difficulty swallowing. She endorses good energy as she continues to work with good appetite and hydration and stable weight. Her double vision continues to improve as she needs less pyridostigmine and is decreasing her prednisone down to 15 mg. PHYSICAL EXAM: Area Assessed: Chest KPS: 90 General Appearance: Alert and oriented. No acute distress. Chest: No respiratory distress. IMAGING/LAB RESULTS: None TOXICITY ASSESSMENT (CTC v4.0): Fatigue: grade 0 - No symptoms Weight loss: grade 0 - No weight loss Nausea:Grade 0 - No Symptoms Radiation Dermatitis:grade 0 - No symptoms Dysphagia: grade 0 - No symptoms Esophageal Pain: Grade 0 - No symptoms Dyspnea: grade 0 (No symptoms) Treatment chart checked: Yes Patient treatment site reviewed and verified:Yes Port films reviewed and current:Yes Medications started: None ASSESSMENT/PLAN: Clinically stable. Toxicity within expected parameters. Continue radiation treatment as planned. MD Mohinder Man Ariana, LPN 11/07/2023 2:54 PM Signed Status: Post-menopausal. Allergies As of Date: 11/07/2023 (No Known Allergies) Date Reviewed: 11/07/2023 Reviewed by: Marian Vines LPN - Fully Assessed Reason for Visit: Radiotherapy On-treatment Visit [1722] Primary Visit Diagnosis:Thymoma [D49.89] Prescriptions as of 11/07/2023 - predniSONE (DELTASONE) 10 mg tablet Take 1.5 tablets by mouth once daily. - cholecalciferol, vitamin D3, (VITAMIN D3 ORAL) Take by mouth once daily. - ibuprofen (MOTRIN) 600 mg tablet Take 1 tablet by mouth every 6 hours as needed for pain. - pyRIDostigmine bromide 30 mg tab Take 1 tablet by mouth four times daily. Problem List As Of Date 11/07/2023 Noted Resolved Multiple thyroid nodules [E04.2] 08/18/2023 Abnormal results of thyroid function studies [R*08/18/2023 Thymoma [D49.89] 09/13/2023 Postoperative pain [G89.18] 09/13/2023 Summary [Z91.199] 09/13/2023 Myasthenia gravis without exacerbation (HCC) [G* Visit Notes: >> Marian Vines LPN SunNovember 07, 2023 2:53 PM Status: Signed Status: Post-menopausal. Encounter Status:Closed by ZEFERINO DESOUZA on 11/07/[address] [facility] CNOVon 10-31-2023 CNOV Office Visit (RADTSA ) ----- MARNIE ARANA ([id number]) 1970 F Date Time Provider Department 10/31/23 3:00 PM ZEFERINO DESOUZA During your visit today, we recorded the following information about you: Temperature Pulse Respiration Blood pressure 96.9 degrees 65/minute 16/minute 115/77 Weight 101.3 kg Mohinder MarianASHISH 10/31/2023 2:54 PM Signed Status: Patient states there is no possibility she is at this time. Zeferino Desouza MD 11/06/2023 5:54 AM Signed Radiation Oncology - On Treatment Review (OTR) Note PATIENT NAME: Marnie Arana PATIENT DIAGNOSIS: Ms. Arana is a 53-year-old woman diagnosed with Stage I, [id number] (AJCC)/Stage IIa ([place]) thymoma (Type AB) status post bilateral robotic-assisted VATS total thymectomy on 09/13/[address] Turner. 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 Tumor was noted to be present at the anterior and posterior margins of the specimen (R1). PROTOCOL: no COURSE: post-operative Current dose: 1000 cGy in 5 fx Planned dose: 5400 cGy in 27 fx Status: History of hysterectomy SUBJECTIVE: Tolerated first week of XRT well and denies any pain/discomfort in the neck/chest and denies any trouble swallowing or shortness of breath or chest pain or cough or hemoptysis. She does endorse good energy as she has returned to work and is using her normal glasses more often with periodic use of pyridostigmine as needed. She is also on a slow taper off of her prednisone. She endorses good energy appetite and hydration with stable weight. PHYSICAL EXAM: Area Assessed: Chest KPS: 90 General Appearance: Alert and oriented. No acute distress. Chest: No respiratory distress. IMAGING/LAB RESULTS: None TOXICITY ASSESSMENT (CTC v4.0): Fatigue: grade 0 - No symptoms Weight loss: grade 0 - No weight loss Nausea:Grade 0 - No Symptoms Radiation Dermatitis:grade 0 - No symptoms Dysphagia: grade 0 - No symptoms Esophageal Pain: Grade 0 - No symptoms Dyspnea: grade 0 (No symptoms) Treatment chart checked: Yes Patient treatment site reviewed and verified:Yes Port films reviewed and current:Yes Medications started: None ASSESSMENT/PLAN: Clinically stable. Toxicity within expected parameters. Continue radiation treatment as planned. We reviewed general precautions/instructions during radiation treatment to the chest as well as the potential acute toxicities during treatment and their time course. Discussed the importance of a well-balanced diet, hydration, and exercise/activity as tolerated through the course of treatment. Zeferino Desouza MD Allergies As of Date: 10/31/2023 (No Known Allergies) Date Reviewed: 10/31/2023 Reviewed by: Marian Vines LPN - Fully Assessed Reason for Visit: Radiotherapy On-treatment Visit [1722] Primary Visit Diagnosis:Thymoma [D49.89] Prescriptions as of 11/06/2023 - predniSONE (DELTASONE) 10 mg tablet Take 1.5 tablets by mouth once daily. - cholecalciferol, vitamin D3, (VITAMIN D3 ORAL) Take by mouth once daily. - ibuprofen (MOTRIN) 600 mg tablet Take 1 tablet by mouth every 6 hours as needed for pain. - pyRIDostigmine bromide 30 mg tab Take 1 tablet by mouth four times daily. Problem List As Of Date 10/31/2023 Noted Resolved Multiple thyroid nodules [E04.2] 08/18/2023 Abnormal results of thyroid function studies [R*08/18/2023 Thymoma [D49.89] 09/13/2023 Postoperative pain [G89.18] 09/13/2023 Summary [Z91.199] 09/13/2023 Myasthenia gravis without exacerbation (HCC) [G* Visit Notes: >> Marian Vines LPN SunOct 31, 2023 2:54 PM Status: Signed Status: Patient states there is no possibility she is at this time. Encounter Status:Closed by ZEFERINO DESOUZA on 11/06/[address] [facility] CNOVon 10-29-2023 CNOV Office Visit (NENMMN ) ----- MARNIE ARANA ([id number]) 1970 F Date Time Provider Department 10/29/23 4:00 PM DAVID DSOUZA NENMMN During your visit today, we recorded the following information about you: Pulse Blood pressure Weight Height 78/minute 114/56 100.2 kg 1.6 m David Dsouza MD 10/29/2023 5:45 PM Addendum S90 [facility] [place] [facility] Note- Established patient Provider: David Dsouza MD ([facility])/ Quinten Ruiz MD ([facility] Staff) Date of last clinic visit: 07/16/23 History Since Last Evaluation: Here for follow-up evaluation of seropositive, thymomatous myasthenia gravis. Active issues: 1) Underwent thymectomy on 09/13/23. No complications. Tolerated procedure well. 2) Pathology showed type AB thymoma with transcapsular invasion but negative lymph nodes. She met with Radiation oncology and has started radiation. Has completed 3 treatments. 3) Vision has improved. When she returned to work in early October, she felt the double vision and fatigue become worse. She saw her local rn child who did not find objective evidence of worsening vision and advised her that stress is likely contributing. Her vision is now improving again. Tolerating prednisone 20mg daily well. Continues to take pyridostigmine every 6 hours at 0200, 0800, 1400 and 2000. She also wears prism glasses. MG - Activities of Daily Living (MG-ADL) 1. Talkin=Normal 2. Chewin=Normal 3. Swallowin=Normal 4. Breathin=Normal 5. Impairment of ability to brush teeth or comb hair: 0=None 6. Impairment of ability to arise from a chair: 0=None 7. Double vision: 1=Occurs, but not daily 8. Eyelid droop: 0=None MG-ADL Total Score: 1 Meds and allergies as listed (below and above, respectively) Current Outpatient Medications Medication Sig cholecalciferol, vitamin D3, (VITAMIN D3 ORAL) Take by mouth. ibuprofen (MOTRIN) 600 mg tablet Take 1 tablet by mouth every 6 hours as needed for pain. predniSONE (DELTASONE) 10 mg tablet Take 2 tablets by mouth once daily. pyRIDostigmine bromide 30 mg tab Take 1 tablet by mouth four times daily. No current facility-administered medications for this visit. No new details in the family history or social history were offered by the patient. Review of symptoms including constitutional, eyes, ENT, neck, respiratory, cardiovascular, GI, , musculoskeletal, hematologic, oncologic, endocrine, and psychiatric categories is unchanged. EXAM FINDINGS: BP 114/56 Pulse 78 Ht 160 cm (5' 3 ) Wt 100.2 kg (221 lb) SpO2 94% BMI 39.15 kg/m? General Medical Exam: No changes in eye/ENT, neck, respiratory, cardiac, GI, back, extremities and skin examination. Neurological Examination: Mental Status: Alert and oriented to person, place, and time with fluent speech. Cranial Nerves: II: Visual park full to confrontational testing. III-IV-: Pupils equally round and reactive to light. Normal EOMs but with slight exotropia when individual eyes are covered. No ptosis bilaterally, including with prolonged exercise V: Normal facial sensation. VII: orbicularis oculus: right 5/5, left 5/5, frontalis 5/5 and orbicularis david 5/5. VIII: Normal hearing. IX-X: Normal palatal movement. XI: Normal shoulder shrug and head rotation. XII: Normal tongue strength and range of motion, no deviation or fasciculation. Motor: Normal tone and muscle bulk. No atrophy. Neck flexion 5/5, neck extension 5/5. Strength/power is 5/5 with shoulder abduction and hip flexion bilaterally. Able to rise from chair without use of arms. DTRs: 2+ B/L UEs AND LEs. Sensory: Intact to light touch, temperature and vibration. Gait: normal-based, good arm-swing, doug. Normal station. INTERVAL PERTINENT STUDIES (reviewed) Surgical Pathology - Thymus (09/13/23): A. Pericardium, excision: - Negative for neoplasm. B. Thymus, total thymectomy: - Thymoma, World Health Organization (WHO), Type AB, 4.5 cm - Four (4) lymph nodes negative for neoplasm. IMPRESSION: 53 yo F who presents today as a follow-up for seropositive, thymomatous myasthenia gravis s/p thymectomy. 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 Can wean prednisone and monitor symptoms. PLAN: - Continue prednisone 20mg daily until the end of October. - Starting on 11/07/23, decrease prednisone to 15mg daily. - If stable, decrease prednisone to 10mg daily on 12/08/23 and keep at that dose until next follow-up appointment. - Discussed appropriate use pyridostigmine (emphasized that she should not wake herself up at 2AM to take a dose). Patient will adjust how she uses it and track her symptoms. Return visit in ~ 3 months To contact this office via telephone and/or MyChart if no commu (more content not included)... Normal [facility] CNOV Office Visit (JOSEMN ) ----- MARNIE ARANA ([id number]) 1970 F Date Time Provider Department 10/29/23 2:30 PM KANDY VALLECILLO During your visit today, we recorded the following information about you: Temperature Pulse Respiration Blood pressure 98 degrees 93/minute 16/minute 127/77 Weight 100.2 kg Kandy Vallecillo APRN.BODY CARE MANAGER 10/29/2023 2:41 PM Signed [facility] - OUTPATIENT THORACIC SURGERY CLINIC NOTE PT [facility] NO: [id number] THORACIC SURGEON: Jasiel Turner M.D. DATE OF SERVICE: 10/29/2023 PRINCIPAL DX: -T1aN0 stage IIa Thymoma, (+) margin -Myasthenia Gravis SURGICAL HX: 09/13/2023: Robotic bilateral thymectomy Surgical Pathology: FINAL DIAGNOSIS A. Pericardium, excision: - Negative for neoplasm. B. Thymus, total thymectomy: - Thymoma, World Health Organization (WHO), Type AB, 4.5 cm - Four (4) lymph nodes negative for neoplasm. Diagnosis Comment A. A Movat stain has been used to evaluate the pericardium. B. Immunohistochemical studies demonstrate the tumor cells are diffusely positive for CK AE1AE3, CK CAM5.2 and p63. The admixed lymphocytes within the neoplasm are strongly positive for CD3 (in both types A and B foci); TdT is predominantly positive in the Type B area, and, CD20 is present as scattered clusters throughout the tumor. The tumor appears present at the anterior (sternal) margin of excision (orange ink--Slide B4) and at a disrupted posterior margin (blue ink---Slide B1). Dr. Vikash Gold, Thoracic pathology, has also reviewed this case and concurs. Laboratory Developed Test (LDT) Disclaimer: Performance characteristics of immunohistochemical, immunofluorescent and chromogenic in-situ hybridization tests have been determined by the performing laboratory within [facility] Medicine [place] ([facility], [facility], [facility], [facility], [facility], or [facility]) in a manner consistent with CLIA requirements. One or more of these tests have not been cleared or approved by the FDA. [facility] is regulated under CLIA as qualified to perform high-complexity testing. These tests are used for clinical purposes. They should not be regarded as investigational or for research. Positive and negative controls stain appropriately. Block for additional Biomarkers/Molecular studies B1 Synoptic Report THYMUS 8th Edition - Protocol posted: 09/28/2021 THYMUS: RESECTION - All Specimens SPECIMEN Procedure Thymectomy TUMOR Tumor Site Thymus Histologic Type Type AB thymoma Tumor Size Greatest Dimension (Centimeters): 4.5 cm Lymphovascular Invasion Not identified Treatment Effect No known presurgical therapy Site(s) Involved by Direct Tumor Invasion Microscopic transcapsular invasion into thymic or perithymic fat MARGINS Margin Status Tumor present at margin Margin(s) Involved by Tumor Anterior and posterior REGIONAL LYMPH NODES Regional Lymph Node Status All regional lymph nodes negative for tumor Number of Lymph Nodes Examined 4 DISTANT METASTASIS Distant Site(s) Involved Cannot be determined PATHOLOGIC STAGE CLASSIFICATION (pTNM, AJCC 8th Edition) Reporting of pT, pN, and (when applicable) pM categories is based on information available to the pathologist at the time the report is issued. As per the AJCC (Chapter 1, 8th Ed.) it is the managing physician?s responsibility to establish the final pathologic stage based upon all pertinent information, including but potentially not limited to this pathology report. 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 Preoperative Hospital Course: Presented with blurry vision in the evening as well as intermittent double vision, symptoms began 05/2023. 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 As part of his workup, a CT of her brain orbits completed that showed a tortuous left optic nerve but no other abnormal findings. Serum testing was significant for positive acetylcholine receptor binding antibodies and she was referred to a neurologist. Started on pyridostigmine 30mg TID and prednisone 10mg daily in June 2023. Prednisone was increased to 20 mg daily in July 2023 given new presence of ptosis. Chest CT showed the presence of a possible thymomatous mass and she was referred Thoracic surgery for possible surg (more content not included)... Normal [facility] XR CHEST 2V FRONTAL/LATon XR CHEST 2V FRONTAL/LAT * * *Final Report* * * DATE OF EXAM: Oct 29 2023 1:18PM [id number] - XR CHEST 2V FRONTAL/LAT / PROCEDURE REASON: multiple diagnoses * * * * Physician Interpretation * * * * EXAMINATION: CHEST RADIOGRAPH (2 VIEW FRONTAL and LATERAL) CLINICAL HISTORY: Myasthenia gravis (HCC) Thymoma MQ: XC2_6 EXAM DATE/TIME: 10/29/2023 1:18 PM COMPARISON: PA and lateral CXR 09/21/2023 RESULT: Lines, tubes, and devices: Interval removal of the mediastinal DELANEY drain present on the prior exam. Lungs and pleura: The lungs are clear of consolidation. No pleural effusion or pneumothorax is identified. Cardiomediastinal silhouette: By history, status post robotic bilateral thymectomy. The heart size and pulmonary vascular pattern are within normal limits. Bones and soft tissues: Unremarkable. IMPRESSION: No acute disease identified in the lungs or mediastinum. Architecture Faculty Member: JAIME Transcribe Date/Time: Oct 29 2023 4:22P Dictated by : YOANDY POMPA MD This examination was interpreted and the report reviewed and electronically signed by: YOANDY POMPA MD on Oct 29 2023 4:24PM EST [id number] Normal [facility] XR Chest PA and Lateralon IMPRESSION: No acute disease identified in the lungs or mediastinum. Architecture Faculty Member: JAIME Transcribe Date/Time: Oct 29 2023 4:22P Dictated by : YOANDY POMPA MD This examination was interpreted and the report reviewed and electronically signed by: YOANDY POMPA MD on Oct 29 2023 4:24PM [facility] DIVISION OF RADIOLOGY * * *Final Report* * * DATE OF EXAM: Oct 29 2023 1:18PM [id number] - XR CHEST 2V FRONTAL/LAT / PROCEDURE REASON: multiple diagnoses * * * * Physician Interpretation * * * * EXAMINATION: CHEST RADIOGRAPH (2 VIEW FRONTAL & LATERAL) CLINICAL HISTORY: Myasthenia gravis (HCC) Thymoma MQ: XC2_6 EXAM DATE/TIME: 10/29/2023 1:18 PM COMPARISON: PA and lateral CXR 09/21/2023 RESULT: Lines, tubes, and devices: Interval removal of the mediastinal DELANEY drain present on the prior exam. Lungs and pleura: The lungs are clear of consolidation. No pleural effusion or pneumothorax is identified. Cardiomediastinal silhouette: By history, status post robotic bilateral thymectomy. The heart size and pulmonary vascular pattern are within normal limits. Bones and soft tissues: Unremarkable. DIVISION OF RADIOLOGY Provider, Francisco Javier Pena - 10/29/2023 * * *Final Report* * * DATE OF EXAM: Oct 29 2023 1:18PM [id number] - XR CHEST 2V FRONTAL/LAT / PROCEDURE REASON: multiple diagnoses * * * * Physician Interpretation * * * * EXAMINATION: CHEST RADIOGRAPH (2 VIEW FRONTAL & LATERAL) CLINICAL HISTORY: Myasthenia gravis (HCC) Thymoma MQ: XC2_6 EXAM DATE/TIME: 10/29/2023 1:18 PM COMPARISON: PA and lateral CXR 09/21/2023 RESULT: Lines, tubes, and devices: Interval removal of the mediastinal DELANEY drain present on the prior exam. Lungs and pleura: The lungs are clear of consolidation. No pleural effusion or pneumothorax is identified. Cardiomediastinal silhouette: By history, status post robotic bilateral thymectomy. The heart size and pulmonary vascular pattern are within normal limits. Bones and soft tissues: Unremarkable. IMPRESSION IMPRESSION: No acute disease identified in the lungs or mediastinum. Architecture Faculty Member: PSCB Transcribe Date/Time: Oct 29 2023 4:22P Dictated by : YOANDY POMPA MD This examination was interpreted and the report reviewed and electronically signed by: YOANDY POMPA MD on Oct 29 2023 4:24PM EST Radiology Study observation (narrative) XR Chest PA and LateralOrder ed By: [facility] Provider on 10-29-2023 CT Chest W contrast Festus IMPRESSION: Resection of anterior mediastinal mass. Unchanged 3 mm right upper lobe nodule. Transcribe Date/Time: Oct 17 2023 9:29A Dictated by: KUSUM DICK MD This examination was interpreted and the report reviewed and electronically signed by: KUSUM DICK MD on Oct 17 2023 9:39AM EST Thank you for allowing us to participate in the care of your patient. Should there be any questions regarding this interpretation, please call [phone]. If you are unable to reach us at the number above, please feel free to contact [facility] at [phone]. DIVISION OF RADIOLOGY * * *Final Report* * * DATE OF EXAM: Oct 16 2023 12:58PM [facility] 0539 - CT CHEST W IVCON / PROCEDURE REASON: Malignant neoplasm of thymus (HCC) * * * * Physician Interpretation * * * * RESULT: EXAMINATION: CHEST CT WITH CONTRAST CLINICAL HISTORY: Malignant neoplasm of thymus (HCC) Technique: Spiral CT acquisition of the chest from the thoracic inlet to the upper abdomen following IV contrast. MQ: CTCWR_5 Contrast: 50 mL Omnipaque [address] Dose-Length Product: 284 mGy*cm CT Dose Reduction Employed: Automated exposure control (AEC) Comparison: Outside hospital chest CT 07/03/2023 RESULT: Lines, tubes, and devices: None. Lung parenchyma and airways: Trachea and central airways are patent. Unchanged 3 mm groundglass nodule right upper lobe (image 38). No new suspicious appearing pulmonary nodules. Pleural space: Trace left pleural fluid. Lower neck, lymph nodes, and mediastinum: No axillary, supraclavicular, mediastinal or hilar lymphadenopathy by CT size criteria. Resection of anterior mediastinal mass. Minimal fat stranding at the resection site. Heart, pericardium, and thoracic vessels: The heart is normal in size. No pericardial effusion. The thoracic aorta and main pulmonary artery are normal in caliber. Bones/Soft Tissues: No aggressive osseous lesions. Upper abdomen: Hepatic hemangiomas better characterized on prior MRI. Small hiatal hernia. Traditional Chinese Herbalist (topogram) images: Unremarkable. DIVISION OF RADIOLOGY Provider, [facility] - 10/17/2023 * * *Final Report* * * DATE OF EXAM: Oct 16 2023 12:58PM [facility] 0539 - CT CHEST W IVCON / PROCEDURE REASON: Malignant neoplasm of thymus (HCC) * * * * Physician Interpretation * * * * RESULT: EXAMINATION: CHEST CT WITH CONTRAST CLINICAL HISTORY: Malignant neoplasm of thymus (HCC) Technique: Spiral CT acquisition of the chest from the thoracic inlet to the upper abdomen following IV contrast. MQ: CTCWR_5 Contrast: 50 mL Omnipaque [address] Dose-Length Product: 284 mGy*cm CT Dose Reduction Employed: Automated exposure control (AEC) Comparison: Outside hospital chest CT 07/03/2023 RESULT: Lines, tubes, and devices: None. Lung parenchyma and airways: Trachea and central airways are patent. Unchanged 3 mm groundglass nodule right upper lobe (image 38). No new suspicious appearing pulmonary nodules. Pleural space: Trace left pleural fluid. Lower neck, lymph nodes, and mediastinum: No axillary, supraclavicular, mediastinal or hilar lymphadenopathy by CT size criteria. Resection of anterior mediastinal mass. Minimal fat stranding at the resection site. Heart, pericardium, and thoracic vessels: The heart is normal in size. No pericardial effusion. The thoracic aorta and main pulmonary artery are normal in caliber. Bones/Soft Tissues: No aggressive osseous lesions. Upper abdomen: Hepatic hemangiomas better characterized on prior MRI. Small hiatal hernia. Traditional Chinese Herbalist (topogram) images: Unremarkable. IMPRESSION IMPRESSION: Resection of anterior mediastinal mass. Unchanged 3 mm right upper lobe nodule. Transcribe Date/Time: Oct 17 2023 9:29A Dictated by: KUSUM DICK MD This examination was interpreted and the report reviewed and electronically signed by: KUSUM DICK MD on Oct 17 2023 9:39AM EST Thank you for allowing us to participate in the care of your patient. Should there be any questions regarding this interpretation, please call [phone]. If you are unable to reach us at the number above, please feel free to contact [facility] at [phone]. CT Chest W contrast IVOrdere d By: [facility] Provider on 10-17-2023 CT CHEST W IVCONon CT CHEST W IVCON * * *Final Report* * * DATE OF EXAM: Oct 16 2023 12:58PM [facility] 0539 - CT CHEST W IVCON / PROCEDURE REASON: Malignant neoplasm of thymus (HCC) * * * * Physician Interpretation * * * * RESULT: EXAMINATION: CHEST CT WITH CONTRAST CLINICAL HISTORY: Malignant neoplasm of thymus (HCC) Technique: Spiral CT acquisition of the chest from the thoracic inlet to the upper abdomen following IV contrast. MQ: CTCWR_5 Contrast: 50 mL Omnipaque [address] Dose-Length Product: 284 mGy*cm CT Dose Reduction Employed: Automated exposure control (AEC) Comparison: Outside hospital chest CT 07/03/2023 RESULT: Lines, tubes, and devices: None. Lung parenchyma and airways: Trachea and central airways are patent. Unchanged 3 mm groundglass nodule right upper lobe (image 38). No new suspicious appearing pulmonary nodules. Pleural space: Trace left pleural fluid. Lower neck, lymph nodes, and mediastinum: No axillary, supraclavicular, mediastinal or hilar lymphadenopathy by CT size criteria. Resection of anterior mediastinal mass. Minimal fat stranding at the resection site. Heart, pericardium, and thoracic vessels: The heart is normal in size. No pericardial effusion. The thoracic aorta and main pulmonary artery are normal in caliber. Bones/Soft Tissues: No aggressive osseous lesions. Upper abdomen: Hepatic hemangiomas better characterized on prior MRI. Small hiatal hernia. Traditional Chinese Herbalist (topogram) images: Unremarkable. IMPRESSION: Resection of anterior mediastinal mass. Unchanged 3 mm right upper lobe nodule. Transcribe Date/Time: Oct 17 2023 9:29A Dictated by: KUSUM DICK MD This examination was interpreted and the report reviewed and electronically signed by: KUSUM DICK MD on Oct 17 2023 9:39AM EST Thank you for allowing us to participate in the care of your patient. Should there be any questions regarding this interpretation, please call [phone]. If you are unable to reach us at the number above, please feel free to contact [facility] at [phone]. [id number] Normal [facility] CT Chest W contrast Festus Radiology Study observation (narrative) [facility] CNOVon 10-12-2023 CNOV Office Visit (RADTSA ) ----- MARNIE ARANA ([id number]) 1970 F Date Time Provider Department 10/12/23 3:00 PM LAB/PORT RADT SONDRA ENG During your visit today, we recorded the following information about you: Referring Provider: SELF [200] Allergies As of Date: 10/12/2023 (No Known Allergies) Date Reviewed: 10/11/2023 Reviewed by: Marian Vines LPN - Fully Assessed Primary Visit Diagnosis:Thymoma [D49.89] Prescriptions as of 10/16/2023 - cholecalciferol, vitamin D3, (VITAMIN D3 ORAL) Take by mouth. - ibuprofen (MOTRIN) 600 mg tablet Take 1 tablet by mouth every 6 hours as needed for pain. - predniSONE (DELTASONE) 10 mg tablet Take 2 tablets by mouth once daily. - pyRIDostigmine bromide 30 mg tab Take 1 tablet by mouth four times daily. Problem List As Of Date 10/12/2023 Noted Resolved Multiple thyroid nodules [E04.2] 08/18/2023 Abnormal results of thyroid function studies [R*08/18/2023 Thymoma [D49.89] 09/13/2023 Postoperative pain [G89.18] 09/13/2023 Summary [Z91.199] 09/13/2023 Myasthenia gravis without exacerbation (HCC) [G* Encounter Status:Closed by MARIAN VINES on 10/16/23 Normal [facility] CNOVon 10-11-2023 CNOV Office Visit (RADTSA ) ----- MARNIE ARANA ([id number]) 1970 F Date Time Provider Department 10/11/23 1:00 PM ZEFERINO DESOUZA During your visit today, we recorded the following information about you: Temperature Pulse Respiration Blood pressure 97.8 degrees 87/minute 18/minute 141/80 Weight Height 97.6 kg 1.607 m Marian Vines LPN 10/11/2023 12:59 PM Signed Pacemaker/Defibrillator?N Previous Cancer(s)?N Previous Radiation?N Lupus/Scleroderma?N On body monitoring device?N Zeferino Desouza MD 10/23/2023 4:57 AM Addendum Radiation Oncology - New Patient/Consult Note PATIENT NAME: Marnie Arana PATIENT REQUESTING PHYSICIAN: Dr. Jasiel Turner DIAGNOSIS: Stage I, [id number] (AJCC)/Stage IIa ([place]) thymoma (Type AB) PATIENT IDENTIFICATION: This patient was seen in the Department of Radiation Oncology at the [facility] with Zeferino Desouza MD. She was accompanied today by her spouse. Final recommendations will be communicated back to the requesting physician by way of the shared medical record, or letter to requesting physician via [place] mail. HISTORY OF PRESENT ILLNESS: Ms. Arana is a 53-year-old woman from [place], [place], who was diagnosed with myasthenia gravis when she presented in May 2023 with symptoms of double vision. Initial workup by her rn child included a CT of her orbits which showed no specific abnormalities and she had improvement in her vision with the use of prism glasses. Blood work at the time did note the presence of acetylcholine receptor binding antibodies and subsequently met with a neurologist and was started on pyridostigmine. A CT scan of the chest was obtained on 07/03/2023 revealed a 4.8 cm lobulated anterior mediastinal mass consistent with a thymoma. She then met with Dr. Turner in thoracic surgery for further evaluation and treatment recommendations after discussing her options, she was brought to the OR on 09/13/2023 where she underwent bilateral robotic assisted VATS total thymectomy without incident. 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 Tumor was noted to be present at the anterior and posterior margins of the specimen ([place] Stage IIa). She is referred today to the radiation medicine clinic to have a discussion regarding the role of radiation therapy in the postoperative treatment of her thymic disease. INTERVAL HISTORY/REVIEW OF SYSTEMS: Ms. Arana notes recovering well from her recent surgery last month with no significant residual discomfort at this time. She denies any postoperative complications wound healing or infection and notes improvement in her vision since her surgery and no longer requires the prism glasses. She otherwise denies any recent fevers/chills, new headaches, changes in weight/appetite, difficulty with speech/swallowing, shortness of breath, chest pain/palpitations, abdominal pain, nausea/vomiting, change in bowel/urinary function, difficulty with gait/balance. The remainder of the review of systems was performed and was otherwise non-contributory except as described above. PAST MEDICAL HISTORY: PAST MEDICAL HISTORY Diagnosis Date Myasthenia gravis without exacerbation (HCC) PAST SURGICAL HISTORY: PAST SURGICAL HISTORY Procedure Laterality Date ASPIRATE/INJECT GANGLION CYST(S) left wrist REPAIR OF KNEE TOTAL ABDOM HYSTERECTOMY FAMILY HISTORY: FAMILY HISTORY Problem Relation Age of Onset other (Meningioma) Mother Lymphoma Mother other (Type 2 Diabetes Mellitus) Father SOCIAL HISTORY: Ms. Arana is , has 2 children, and lives in the [place], [place] area. 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 She denies any tobacco use and used to consume alcohol occasionally. RADIATION HISTORY: The patient denies any history of therapeutic radiation. ALLERGIES: ALLERGIES No Known Allergies MEDICATIONS: Current Outpatient Medications: cholecalciferol, vitamin D3, (VITAMIN D3 ORAL) predniSONE (DELTASONE) 10 mg tablet pyRIDostigmine bromide 30 mg tab ibuprofen (MOTRIN) 600 mg tablet PHYSICAL EXAMINATION: GENERAL: middle-aged woman sitting in chair, in no acute distress. VITALS: BP 141/80 Pulse 87 Temp 97.8 Resp 18 Ht 5' 3.25 (1.61m) Wt 215 lb 2.7 oz (97.6kg) SpO2 99% BMI 37.79 kg/(m2). KPS: 90 HEENT: NC/AT, anicteric sclera HEART: S1S2 LUNGS: non-labored breathing ABDOMEN: soft MUSCULOSKELETAL: no peripheral edema, moves all extremities. NEURO: no focal deficit; AANDO X3. LABORATORY DATA: Reference 09/27/23 WBC 3.70 - 11.00 k/uL 11.77 (H) Abs Neut (ANC) 1.45 - 7.50 k/uL 7.46 Hemoglobin 11.5 - 15.5 g/dL 13.5 Hematocrit 36.0 - 46.0 % 41.4 (more content not included)... Normal [facility] CBC W Auto Differential pane l (Bld)on 09-27-2023 Basophils (Bld) [#/Vol] 0.10 10*3/uL Normal <0.11 [facility] Comment on above: Order Comment: Speci men Type: BLOOD SPECIMEN Ordering Facility: [facility] Address: [address] [place] [address] Performed By: #### 5 7021-8 #### [facility] CLIA [id number] [address] [place] [address] [place] Basophils/100 WBC (Bld) 0.8 % Normal [facility] Comment on above: Order Comment: Speci men Type: BLOOD SPECIMEN Ordering Facility: [facility] Address: [address] [place] [address] Performed By: #### 5 7021-8 #### [facility] CLIA [id number] [address] [place] [address] [place] Differential cell count method Nom (Bld) Auto Normal [facility] Comment on above: Order Comment: Speci men Type: BLOOD SPECIMEN Ordering Facility: [facility] Address: [address] [place] [address] Performed By: #### 5 7021-8 #### [facility] CLIA [id number] [address] [place] [address] [place] Eosinophils (Bld) [#/Vol] 0.40 10*3/uL Normal <0.46 [facility] Comment on above: Order Comment: Speci men Type: BLOOD SPECIMEN Ordering Facility: [facility] Address: [address] [place] [address] Performed By: #### 5 7021-8 #### [facility] CLIA [id number] [address] [place] [address] [place] Eosinophils/100 WBC (Bld) 3.4 % Normal [facility] Comment on above: Order Comment: Speci men Type: BLOOD SPECIMEN Ordering Facility: [facility] Address: [address] [place] [address] Performed By: #### 5 7021-8 #### [facility] CLIA [id number] [address] [place] [address] [place] Erythrocyte distribution width (RBC) [Ratio] 13.7 % Normal 11.5-15.0 [facility] Comment on above: Order Comment: Speci men Type: BLOOD SPECIMEN Ordering Facility: [facility] Address: [address] [place] [address] Performed By: #### 5 7021-8 #### [facility] CLIA [id number] [address] [place] [address] [place] Hematocrit (Bld) [Volume fraction] 41.4 % Normal 36.0-46.0 [facility] Comment on above: Order Comment: Speci men Type: BLOOD SPECIMEN Ordering Facility: [facility] Address: [address] [place] [address] Performed By: #### 5 7021-8 #### [facility] CLIA [id number] [address] [place] [address] [place] Hemoglobin (Bld) [Mass/Vol] 13.5 g/dL Normal 11.5-15.5 [facility] Comment on above: Order Comment: Speci men Type: BLOOD SPECIMEN Ordering Facility: [facility] Address: [address] [place] [address] Performed By: #### 5 7021-8 #### [facility] CLIA [id number] [address] [place] [address] [place] Immature granulocytes (Bld) [#/Vol] 0.16 10*3/uL High <0.10 [facility] Comment on above: Order Comment: Speci men Type: BLOOD SPECIMEN Ordering Facility: [facility] Address: [address] [place] [address] Performed By: #### 5 7021-8 #### [facility] CLIA [id number] [address] [place] [address] [place] Immature granulocytes/100 WBC (Bld) 1.4 % Normal [facility] Comment on above: Order Comment: Speci men Type: BLOOD SPECIMEN Ordering Facility: [facility] Address: [address] [place] [address] Performed By: #### 5 7021-8 #### [facility] CLIA [id number] [address] [place] [address] [place] Lymphocytes (Bld) [#/Vol] 3.03 10*3/uL Normal 1.00-4.00 [facility] Comment on above: Order Comment: Speci men Type: BLOOD SPECIMEN Ordering Facility: [facility] Address: [address] [place] [address] Performed By: #### 5 7021-8 #### [facility] CLIA [id number] [address] [place] [address] [place] Lymphocytes/100 WBC (Bld) 25.7 % Normal [facility] Comment on above: Order Comment: Speci men Type: BLOOD SPECIMEN Ordering Facility: [facility] Address: [address] [place] [address] Performed By: #### 5 7021-8 #### [facility] CLIA [id number] [address] [place] [address] [place] MCH (RBC) [Entitic mass] 30.4 pg Normal 26.0-34.0 [facility] Comment on above: Order Comment: Speci men Type: BLOOD SPECIMEN Ordering Facility: [facility] Address: [address] [place] [address] Performed By: #### 5 7021-8 #### [facility] CLIA [id number] [address] [place] [address] [place] MCHC (RBC) [Mass/Vol] 32.6 g/dL Normal 30.5-36.0 [facility] Comment on above: Order Comment: Speci men Type: BLOOD SPECIMEN Ordering Facility: [facility] Address: [address] [place] [address] Performed By: #### 5 7021-8 #### [facility] CLIA [id number] [address] [place] [address] [place] MCV (RBC) [Entitic vol] 93.2 fL Normal 80.0-100.0 [facility] Comment on above: Order Comment: Speci men Type: BLOOD SPECIMEN Ordering Facility: [facility] Address: [address] [place] [address] Performed By: #### 5 7021-8 #### [facility] CLIA [id number] [address] [place] [address] [place] Monocytes (Bld) [#/Vol] 0.62 10*3/uL Normal <0.87 [facility] Comment on above: Order Comment: Speci men Type: BLOOD SPECIMEN Ordering Facility: [facility] Address: [address] [place] [address] Performed By: #### 5 7021-8 #### [facility] CLIA [id number] [address] [place] [address] [place] Monocytes/100 WBC (Bld) 5.3 % Normal [facility] Comment on above: Order Comment: Speci men Type: BLOOD SPECIMEN Ordering Facility: [facility] Address: [address] [place] [address] Performed By: #### 5 7021-8 #### [facility] CLIA [id number] [address] [place] [address] [place] Neutrophils (Bld) [#/Vol] 7.46 10*3/uL Normal 1.45-7.50 [facility] Comment on above: Order Comment: Speci men Type: BLOOD SPECIMEN Ordering Facility: [facility] Address: [address] [place] [address] Performed By: #### 5 7021-8 #### [facility] CLIA [id number] [address] [place] [address] [place] Neutrophils/100 WBC (Bld) 63.4 % Normal [facility] Comment on above: Order Comment: Speci men Type: BLOOD SPECIMEN Ordering Facility: [facility] Address: [address] [place] [address] Performed By: #### 5 7021-8 #### [facility] CLIA [id number] [address] [place] [address] [place] Nucleated RBC (Bld) [#/Vol] 10*3/uL Normal <0.01 [facility] Comment on above: Order Comment: Speci men Type: BLOOD SPECIMEN Ordering Facility: [facility] Address: [address] [place] [address] Performed By: #### 5 7021-8 #### [facility] CLIA [id number] [address] [place] [address] [place] Nucleated RBC/100 WBC (Bld) [Ratio] 0.0 /100 WBC Normal [facility] Comment on above: Order Comment: Speci men Type: BLOOD SPECIMEN Ordering Facility: [facility] Address: [address] [place] [address] Performed By: #### 5 7021-8 #### [facility] CLIA [id number] [address] [place] [address] [place] Platelet mean volume (Bld) [Entitic vol] 9.4 fL Normal 9.0-12.7 [facility] Comment on above: Order Comment: Speci men Type: BLOOD SPECIMEN Ordering Facility: [facility] Address: [address] [place] [address] Performed By: #### 5 7021-8 #### [facility] CLIA [id number] [address] [place] [address] [place] Platelets (Bld) [#/Vol] 337 10*3/uL Normal 150-400 [facility] Comment on above: Order Comment: Speci men Type: BLOOD SPECIMEN Ordering Facility: [facility] Address: [address] [place] [address] Performed By: #### 5 7021-8 #### [facility] CLIA [id number] [address] [place] [address] [place] RBC (Bld) [#/Vol] 4.44 10*6/uL Normal 3.90-5.20 [facility] Comment on above: Order Comment: Speci men Type: BLOOD SPECIMEN Ordering Facility: [facility] Address: [address] [place] [address] Performed By: #### 5 7021-8 #### [facility] CLIA [id number] [address] [place] [address] [place] WBC (Bld) [#/Vol] 11.77 10*3/uL High 3.70-11.00 [facility] Comment on above: Order Comment: Speci men Type: BLOOD SPECIMEN Ordering Facility: [facility] Address: [address] [place] [address] Performed By: #### 5 7021-8 #### [facility] CLIA [id number] [address] [place] [address] [place] CNCOon 09-27-2023 CNCO Letter Text Normal [facility] T3Free SerPl-mCncon 09-27-19 24 Free T3 [Mass/Vol] 3.3 pg/mL Normal 2.3-4.1 [facility] Comment on above: Order Comment: Speci men Type: BLOOD SPECIMEN Ordering Facility: [facility] Address: [address] [place] [address] Performed By: #### 5 7021-8 #### [facility] IA [id number] [address] [place] [address] [place] T4 Free SerPl-mCncon 024 Free T4 [Mass/Vol] 0.9 ng/dL Normal 0.9-1.7 [facility] Comment on above: Order Comment: Speci men Type: BLOOD SPECIMEN Ordering Facility: [facility] Address: [address] [place] [address] Performed By: #### 5 7021-8 #### [facility] IA [id number] [address] [place] [address] [place] THYROID PEROXIDASE ANTIBODY BLOODon 09-27-2023 TPO Ab Qn [IU]/mL Normal <5.6 [facility] Comment on above: Order Comment: Speci men Type: BLOOD SPECIMEN Ordering Facility: [facility] Address: [address] [place] [address] Result Comment: Thyr oid Peroxidase Antibody test is used as an aid in diagnosis of autoimmune thyroid disease. Clinical correlation is required. Performed By: #### 5 8410-2 #### [facility] IA [id number] [address] [place] [address] [place] THYROID STIMULATING IMMUNOGL OBULIN BLOODon 09-27-2023 Thyroid stimulating immunoglobulins actual/normal (S) [Relative mass conc] % Normal <0.55 [facility] Comment on above: Order Comment: Dalila hemphill Type: BLOOD SPECIMENOrdering Facility: [facility] Address: [address] [place] [address] Result Comment: Thyr oid Stimulating Immunoglobulin test is used as an aid in diagnosis of autoimmune hyperthyroidism especially in patients with Grave's orbitopathy and dermopathy. Low positive TSH receptor stimulating antibody levels may occasionally be found in patients with autoimmune hypothyroidism. Clinical correlation is required. Performed By: #### T SIGIM ####[facility] [id number] [place] [address] [place] TSI QUALITATIVE Negative Normal Negative [facility] Comment on above: Order Comment: Dalila hemphill Type: BLOOD SPECIMENOrdering Facility: [facility] Address: [address] [place] [address] Performed By: #### T SIGIM ####[facility] [id number] [place] [address] [place] TSH SerPl-aCncon 09-27-2023 TSH Qn 2.830 m[IU]/L Normal 0.270-4.200 [facility] Comment on above: Order Comment: Dalila hemphill Type: BLOOD SPECIMEN Ordering Facility: [facility] Address: [address] [place] [address] Performed By: #### 5 7021-8 #### [facility] CLIA [id number] [address] [place] [address] [place] US THYROID/PARATHYROIDon US THYROID/PARATHYROID * * *Final Report* * * DATE OF EXAM: Sep 27 2023 10:48AM LNU 1048 - US THYROID/PARATHYROID / PROCEDURE REASON: Multiple thyroid nodules * * * * Physician Interpretation * * * * EXAMINATION: THYROID ULTRASOUND CLINICAL HISTORY: Multiple thyroid nodules TECHNIQUE: Sonography and Doppler imaging of the thyroid was performed. Images were obtained and stored in a permanent archive. MQ: UST_1 COMPARISON: None. RESULT: Right Lobe: 4.2 x 1.3 x 1.7 cm; homogeneous echogenicity, expected vascular flow. Left Lobe: 3.8 x 1.3 x 1.6 cm; homogeneous echogenicity, expected vascular flow. Isthmus: 0.2 cm The most suspicious thyroid nodule(s) (up to four) as below: NODULE 1: Location: Right upper pole Size: 0.7 x 0.6 x 0.5 cm Characteristics: Composition: Cystic or almost completely cystic, 0 points Echogenicity: Hypoechoic, 2 points Shape: Cfibr-jbec-ktyn, 0 points Margin: Smooth, 0 points Echogenic foci (add points for all that apply): None, 0 points Internal vascularity: absent Interval growth: No prior available for comparison TI-RADS Category: TR2 ACR Recommendation: TI-RADS 2 Nodule. No follow-up or FNA is advised. NODULE 2: Location: Right mid Size: 0.6 x 0.5 x 0.4 cm Characteristics: Composition: Mixed cystic and solid, 1 point Echogenicity: Hypoechoic, 2 points Shape: Rmjdy-hwqu-fmeo, 0 points Margin: Smooth, 0 points Echogenic foci (add points for all that apply): None, 0 points Internal vascularity: present Interval growth: No prior available for comparison TI-RADS Category: TR3 ACR Recommendation: TI-RADS 3 nodule. No FNA or further imaging is advised. NODULE 3: Location: Left lower pole Size: 0.7 x 0.5 x 0.4 cm Characteristics: Composition: Solid or almost completely solid, 2 points Echogenicity: Hypoechoic, 2 points Shape: Hdpmw-zlvz-yyit, 0 points Margin: Ill-defined, 0 points Echogenic foci (add points for all that apply): None, 0 points Internal vascularity: present Interval growth: No prior available for comparison TI-RADS Category: TR4 ACR Recommendation: TI-RADS 4 nodule. No FNA or follow-up imaging is advised. IMPRESSION: Thyroid nodule(s) present is/are clinically insignificant. No surveillance is advised. TI-RADS Category: TR4 ACR Recommendation: TI-RADS 4 nodule. No FNA or follow-up imaging is advised. ACR recommendations are strictly based on the size and imaging appearance at the time of the exam and do not consider stability or previous biopsy results. Architecture Faculty Member: JAIME Transcribe Date/Time: Sep 27 2023 11:41A Dictated by : GRACE SCALES MD This examination was interpreted and the report reviewed and electronically signed by: GRACE SCALES MD on Sep 28 2023 8:38AM EST [id number] Normal [facility] CNCOon 09-26-2023 CNCO Letter Text Letter Text Normal [facility] CNPNon 09-26-2023 CNPN Telephone (THORMN) ----- MARNIE ARANA ([id number]) 1970 F Date Time Provider Department 09/26/23 JASIEL TURNER During your visit today, we recorded the following information about you: Kandi Price RN 09/26/2023 5:32 PM Signed see letters. RTW on 10/15/2022 Kandi Price RN, BSN, [facility] Allergies As of Date: 09/26/2023 (No Known Allergies) Date Reviewed: 09/21/2023 Reviewed by: Kitty Perez MA - Fully Assessed Reason for Visit: Return To Work Letter [3499] Prescriptions as of 09/27/2023 - ibuprofen (MOTRIN) 600 mg tablet Take 1 tablet by mouth every 6 hours as needed for pain. - predniSONE (DELTASONE) 10 mg tablet Take 2 tablets by mouth once daily. - pyRIDostigmine bromide 30 mg tab Take 1 tablet by mouth four times daily. Problem List As Of Date 09/26/2023 Noted Resolved Multiple thyroid nodules [E04.2] 08/18/2023 Abnormal results of thyroid function studies [R*08/18/2023 Thymoma [D49.89] 09/13/2023 Postoperative pain [G89.18] 09/13/2023 Summary [Z91.199] 09/13/2023 Myasthenia gravis without exacerbation (HCC) [G* Encounter Status:Closed by KANDI PRICE on 09/27/[address] [facility] CNOVon 09-21-2023 CNOV Office Visit (TERESITA ) ----- MARNIE ARANA ([id number]) 1970 F Date Time Provider Department 09/21/23 3:30 PM KANDY VALLECILLO During your visit today, we recorded the following information about you: Temperature Pulse Blood pressure Weight 98 degrees 67/minute 152/83 95.9 kg Height 1.6 m Kandy Vallecillo APRN.BODY CARE MANAGER 09/21/2023 6:44 PM Signed [facility] - OUTPATIENT THORACIC SURGERY CLINIC NOTE PT NAME: Marnie Arana CLINIC NO: [id number] THORACIC SURGEON: Jasiel Turner M.D. DATE OF SERVICE: September 21, 2023 PRINCIPAL DX: Myasthenia Gravis, Thymoma . Surgical pathology pending SURGICAL HX: 09/13/2023: Robotic bilateral thymectomy Surgical Pathology: PENDING REASON FOR VISIT: First post-operative visit HPI: Marnie Arana is a 53 year old female never smoker with PMHx of ocular myasthenia gravis (Ab +) and a thymoma. Preoperative Hospital Course: Presented with blurry vision in the evening as well as intermittent double vision, symptoms began 05/2023. 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 As part of his workup, a CT of her brain orbits completed that showed a tortuous left optic nerve but no other abnormal findings. Serum testing was significant for positive acetylcholine receptor binding antibodies and she was referred to a neurologist. Started on pyridostigmine 30mg TID and prednisone 10mg daily in June 2023. Prednisone was increased to 20 mg daily in July 2023 given new presence of ptosis. Chest CT showed the presence of a possible thymomatous mass and she was referred Thoracic surgery for possible surgical intervention. On 09/13/23 she underwent Robotic bilateral thymectomy with Dr. Jasiel Turner. She was discharged 09/15/23 with left shasta drain. PHYSICAL EXAM: VITAL SIGNS: BP 152/83 Pulse 67 Temp 36.7 ?C (98 ?F) (Oral) Ht 160 cm (5' 3 ) Wt 95.9 kg (211 lb 8 oz) SpO2 97% BMI 37.47 kg/m? Room air Incision location: Bilateral Thorac[place] sites Incision Assessment: Well approximated and no drainage, swelling, erythema or warmth Drain/Tubes: Left Shasta drain - removed GENERAL: well appearing, alert, no acute distress, well-hydrated, well nourished HEENT: normocephalic, midline, anicteric sclera. LUNGS: clear to auscultation, no wheezing or rhonchi HEART: RRR without murmur ABDOMEN: Soft, non-tender, non distended. No masses EXTREMITIES: No clubbing, cyanosis or edema. MUSCULOSKELETAL: Muscular strength intact. SKIN: turgor normal, no suspicious rashes or lesions NEURO: Gait normal. Sensation grossly intact. IMAGING/TESTS: CXR 09/21/2023: PENDING INTERVAL HISTORY: Marnie Arana returns for first post op visit. She has been doing fairly well. She has had adequate pain management with the use of Tylenol during the day and Oxycodone at night. She denies any SOB, fevers, chills. No c/o nausea or vomiting. She has been tolerating diet and has been moving her bowels regularly with the use of Miralax. Incisions are healing well and sutures are removed. Shasta drain has been draining minimally and is easily removed. An occlusive dressing is placed to the site. She may shower tomorrow. She will have the suture removed in once week locally. We have discussed increasing aerobic activity daily, as well as maintaining weight restriction of 5-10 lbs for the first month after surgery. We have also discussed no driving while on narcotics. CXR shows well expanded lungs Surgical pathology pending She will return i10/29/23 with a CXR. IMPRESSION: 53 year old female s/p Robotic bilateral thymectomy 09/13/[address] Jasiel Turner for Myasthenia Gravis, Thymoma . Surgical pathology pending PLAN: - return 10/29/23 with a CXR. - neurology management with Dr Dsouza, f/u 10/29/23 Kandy Wegas, Kandy Vilchis APRN.CNP 09/21/2023 4:12 PM Signed -Shower regularly (starting tomorrow) to keep the incisions clean and inspect for signs of infection. -No water submersion/baths until all incisions are fully healed, typically this takes 6 weeks. -Walking is encouraged, this helps reduce swelling and lowers the chance of blood clots. - Continue to use your horn or blue pickle hourly while awake if possible to optimize lung expansion -No lifting/pushing/pulling greater than 5 lbs for 4 weeks after surgery. Do not perform pipeline integrity engineer such as laundry and vacuuming. Do not perform yard work or gardening. -Okay for tylenol alternating with ibuprofen for pain control (do not exceed 4 g tylenol in a 24 hour period, okay for ibuprofen 600 mg every 6 hours as needed for pain). -Okay for driving if you're not taking any narcotic pain medication for at least 2 days and you feel you can safely maneuver a motor vehicle. Referring Provider: MELISSA HAILE [[id number]] Kel (more content not included)... Normal [facility] [place] 09-21-2023 ISABELLN Telephone (NURSMN) ----- MARNIE ARANA ([id number]) 1970 F Date Time Provider Department 09/21/23 XIANG LAY During your visit today, we recorded the following information about you: Xiang Lay RN 09/21/2023 9:51 AM Signed We are calling to check on how you are doing since our last phone call. Are you having any medical concerns we can help you with today? -No new medical concerns today. Call Outcome: All Clear All clear and closing statement given. RN verified patients name and date of . Xiang Lay RN Allergies As of Date: 09/21/2023 (No Known Allergies) Date Reviewed: 09/15/2023 Reviewed by: Lisa Albrecht RN - Fully Assessed Reason for Visit: Follow Up Phone Call [[id number]] Cmt: follow up call all clear. Prescriptions as of 09/21/2023 - acetaminophen (TYLENOL) 500 mg tablet Take 2 tablets by mouth every 6 hours for 7 days. - ibuprofen (MOTRIN) 600 mg tablet Take 1 tablet by mouth every 6 hours as needed for pain. - oxyCODONE IR (ROXICODONE) 5 mg immediate release tablet Take 1 tablet by mouth every 6 hours as needed for pain for up to 7 days. - polyethylene glycol 3350 17 gram packet Take 1 Packet by mouth once daily for 7 days. For prevention of postoperative opioid induced constipation.. Dissolve dose in 4 - 8 ounces of liquid and take as directed. - predniSONE (DELTASONE) 10 mg tablet Take 2 tablets by mouth once daily. - pyRIDostigmine bromide 30 mg tab Take 1 tablet by mouth four times daily. Problem List As Of Date 09/21/2023 Noted Resolved Multiple thyroid nodules [E04.2] 08/18/2023 Abnormal results of thyroid function studies [R*08/18/2023 Thymoma [D49.89] 09/13/2023 Postoperative pain [G89.18] 09/13/2023 Summary [Z91.199] 09/13/2023 Myasthenia gravis without exacerbation (HCC) [G* Encounter Status:Closed by XIANG LAY on 09/21/23 Normal [facility] XR CHEST 2V FRONTAL/LATon XR CHEST 2V FRONTAL/LAT * * *Final Report* * * DATE OF EXAM: Sep 21 2023 2:53PM BABITA 5291 - XR CHEST 2V FRONTAL/LAT / PROCEDURE REASON: Follow-up examination following surgery * * * * Physician Interpretation * * * * EXAMINATION: CHEST RADIOGRAPH (2 VIEW FRONTAL and LATERAL) CLINICAL HISTORY: Follow-up examination following surgery MQ: [id number] EXAM DATE/TIME: 09/21/2023 2:53 PM COMPARISON: 09/15/2023 RESULT: Lines, tubes, and devices: Right chest tube has been removed. Stable left chest tube. Lungs and pleura: Interval marked improvement in inflation of both lungs. No new consolidations. No pulmonary edema or pneumothorax. No substantial pleural effusions. Cardiomediastinal silhouette: Nonenlarged cardiomediastinal silhouette. Bones and soft tissues: Unremarkable. IMPRESSION: See result. Architecture Faculty Member: JAIME Transcribe Date/Time: Sep 21 2023 3:06P Dictated by : QUINTEN LEWIS MD This examination was interpreted and the report reviewed and electronically signed by: QUINTEN LEWIS MD on Sep 21 2023 3:07PM EST [id number] Normal [facility] XR Chest PA and Lateralon CNPNon 09-17-2023 CNPN Telephone (PODCCP) ----- MARNIE ARANA ([id number]) 1970 F Date Time Provider Department 09/17/23 BARBARA BUSBY During your visit today, we recorded the following information about you: Barbara Busby RN 09/17/2023 10:27 AM Signed 1. Have you noticed any increase in shortness of breath since you left the hospital? No 2. Have you noticed any increased swelling in your feet, ankles, or belly? Skip for vascular pts No 3. Have you gained more than 2-3 pounds since discharge? Skip for vascular AND EP pts No 4. Have you noticed any change in your incision, wound, IV sites since you were discharged as we want you to be aware of any signs of infection (fevers, chills, redness, warmth, swelling, increased tenderness, discharge)? No 5. Are you having any increased pain since discharge? If yes: What type of pain and where? (pressure, sharp pain, dull pain, etc.) No 6. Have you had any unplanned trips to the emergency department or hospital since you were discharged? If yes - why? No 7. Did you fill all of the prescribed medications? If no, do you need help filling your prescription? (Figure out why they?re not filled) Yes 8. Do you have any questions about your medications? No 9. Do you have a doctor?s appointment scheduled or is someone working on getting you a follow-up appointment? Yes Additional Comments: Pt instructed to contact 24-hour nurse hotline for any questions or concerns. Pt verbalized understanding. PD nurse confirmed/verified patient's and full name. All clear. Closing statement given. Barbara Busby RN Allergies As of Date: 09/17/2023 (No Known Allergies) Date Reviewed: 09/15/2023 Reviewed by: Lisa Albrecht RN - Fully Assessed Reason for Visit: Follow Up Phone Call [[id number]] Cmt: RC f/u all clear Prescriptions as of 09/17/2023 - acetaminophen (TYLENOL) 500 mg tablet Take 2 tablets by mouth every 6 hours for 7 days. - ibuprofen (MOTRIN) 600 mg tablet Take 1 tablet by mouth every 6 hours as needed for pain. - oxyCODONE IR (ROXICODONE) 5 mg immediate release tablet Take 1 tablet by mouth every 6 hours as needed for pain for up to 7 days. - polyethylene glycol 3350 17 gram packet Take 1 Packet by mouth once daily for 7 days. For prevention of postoperative opioid induced constipation.. Dissolve dose in 4 - 8 ounces of liquid and take as directed. - predniSONE (DELTASONE) 10 mg tablet Take 2 tablets by mouth once daily. - pyRIDostigmine bromide 30 mg tab Take 1 tablet by mouth four times daily. Problem List As Of Date 09/17/2023 Noted Resolved Multiple thyroid nodules [E04.2] 08/18/2023 Abnormal results of thyroid function studies [R*08/18/2023 Thymoma [D49.89] 09/13/2023 Postoperative pain [G89.18] 09/13/2023 Summary [Z91.199] 09/13/2023 Myasthenia gravis without exacerbation (HCC) [G* Encounter Status:Closed by BARBARA BUSBY on 09/17/23 Normal [facility] Basic metabolic 2000 panelon 09-15-2023 Anion gap [Moles/Vol] 10 mmol/L Normal 9-18 [facility] Comment on above: Order Comment: Speci men Type: BLOOD SPECIMEN Ordering Facility: [facility] Address: [address] [place], [place] [address] Performed By: #### 5 7021-8 #### [facility] CLIA [id number] [address] [place] [address] [place] Calcium [Mass/Vol] 8.9 mg/dL Normal 8.5-10.2 [facility] Comment on above: Order Comment: Speci men Type: BLOOD SPECIMEN Ordering Facility: [facility] Address: [address] [place] [address] Performed By: #### 5 7021-8 #### [facility] CLIA [id number] [address] [place] [address] [place] Chloride [Moles/Vol] 105 mmol/L Normal 97-105 [facility] Comment on above: Order Comment: Speci men Type: BLOOD SPECIMEN Ordering Facility: [facility] Address: [address] [place] [address] Performed By: #### 5 7021-8 #### [facility] CLIA [id number] [address] [place] [address] [place] CO2 [Moles/Vol] 28 mmol/L Normal 22-30 [facility] Comment on above: Order Comment: Speci men Type: BLOOD SPECIMEN Ordering Facility: [facility] Address: [address] [place], [place] [address] Performed By: #### 5 7021-8 #### [facility] CLIA [id number] [address] [place], [place] [id number] [place] Creatinine [Mass/Vol] 0.76 mg/dL Normal 0.58-0.96 [facility] Comment on above: Order Comment: Speci men Type: BLOOD SPECIMEN Ordering Facility: [facility] Address: [address] [place], [place] [address] Performed By: #### 5 7021-8 #### [facility] CLIA [id number] [address] [place] [address] [place] Creatinine and Glomerular filtration rate.predicted panel (S/P/Bld) 93 mL/min/1.73m??? Normal >=60 [facility] Comment on above: Order Comment: Dalila hemphill Type: BLOOD SPECIMEN Ordering Facility: [facility] Address: [address] [place] [address] Result Comment: Rose Marie mated Glomerular Filtration Rate (eGFR) is calculated using the 2020 CKD-EPI creatinine equation. This equation utilizes serum creatinine, sex, and age as parameters. The creatinine assay has traceable calibration to isotope dilution-mass spectrometry. Refer to KDIGO guidelines for clinical interpretation. In patients with unstable renal function, e.g. those with acute kidney injury, the eGFR may not accurately reflect actual GFR. Performed By: #### 5 7021-8 #### [facility] CLIA [id number] [address] [place] [address] [place] Glucose [Mass/Vol] 97 mg/dL Normal 74-99 [facility] Comment on above: Order Comment: Dalila hemphill Type: BLOOD SPECIMEN Ordering Facility: [facility] Address: [address] [place] [address] Result Comment: The [place] Diabetes Association (ADA) provides guidance for cutoff values for fasting glucose and random glucose. The ADA defines fasting as no caloric intake for at least 8 hours. Fasting plasma glucose results between 100 to 125 mg/dL indicate increased risk for diabetes (prediabetes). Fasting plasma glucose results greater than or equal to 126 mg/dL meet the criteria for diagnosis of diabetes. In the absence of unequivocal hyperglycemia, results should be confirmed by repeat testing. In a patient with classic symptoms of hyperglycemia or hyperglycemic crisis, random plasma glucose results greater than or equal to 200 mg/dL meet the criteria for diagnosis of diabetes. Reference: Standards of Medical Care in Diabetes 2016, [place] [employer]. Diabetes Care. 2016.39(Suppl 1). Performed By: #### 5 7021-8 #### [facility] CLIA [id number] [address] [place] [address] [place] Potassium [Moles/Vol] 4.6 mmol/L Normal 3.7-5.1 [facility] Comment on above: Order Comment: Speci men Type: BLOOD SPECIMEN Ordering Facility: [facility] Address: [address] [place] [address] Performed By: #### 5 7021-8 #### [facility] CLIA [id number] [address] [place] [address] [place] Sodium [Moles/Vol] 143 mmol/L Normal 136-144 [facility] Comment on above: Order Comment: Speci men Type: BLOOD SPECIMEN Ordering Facility: [facility] Address: [address] [place] [address] Performed By: #### 5 7021-8 #### [facility] CLIA [id number] [address] [place] [address] [place] Urea nitrogen [Mass/Vol] 10 mg/dL Normal 7-21 [facility] Comment on above: Order Comment: Speci men Type: BLOOD SPECIMEN Ordering Facility: [facility] Address: [address] [place] [address] Performed By: #### 5 7021-8 #### [facility] CLIA [id number] [address] [place] [address] [place] CBC panel Auto (Bld)on 09-14 Erythrocyte distribution width (RBC) [Ratio] 13.8 % Normal 11.5-15.0 [facility] Comment on above: Order Comment: Speci men Type: BLOOD SPECIMEN Ordering Facility: [facility] Address: [address] [place] [address] Performed By: #### 5 8410-2 #### [facility] CLIA [id number] [address] [place] [address] [place] Hematocrit (Bld) [Volume fraction] 36.9 % Normal 36.0-46.0 [facility] Comment on above: Order Comment: Speci men Type: BLOOD SPECIMEN Ordering Facility: [facility] Address: [address] [place] [address] Performed By: #### 5 8410-2 #### [facility] CLIA [id number] [address] [place] [address] [place] Hemoglobin (Bld) [Mass/Vol] 12.0 g/dL Normal 11.5-15.5 [facility] Comment on above: Order Comment: Speci men Type: BLOOD SPECIMEN Ordering Facility: [facility] Address: [address] [place] [address] Performed By: #### 5 8410-2 #### [facility] CLIA [id number] [address] [place] [address] [place] MCH (RBC) [Entitic mass] 30.5 pg Normal 26.0-34.0 [facility] Comment on above: Order Comment: Speci men Type: BLOOD SPECIMEN Ordering Facility: [facility] Address: [address] [place] [address] Performed By: #### 5 8410-2 #### [facility] CLIA [id number] [address] [place] [address] [place] MCHC (RBC) [Mass/Vol] 32.5 g/dL Normal 30.5-36.0 [facility] Comment on above: Order Comment: Speci men Type: BLOOD SPECIMEN Ordering Facility: [facility] Address: [address] [place] [address] Performed By: #### 5 8410-2 #### [facility] CLIA [id number] [address] [place] [address] [place] MCV (RBC) [Entitic vol] 93.9 fL Normal 80.0-100.0 [facility] Comment on above: Order Comment: Speci men Type: BLOOD SPECIMEN Ordering Facility: [facility] Address: [address] [place] [address] Performed By: #### 5 8410-2 #### [facility] CLIA [id number] [address] [place] [address] [place] Nucleated RBC (Bld) [#/Vol] 10*3/uL Normal <0.01 [facility] Comment on above: Order Comment: Speci men Type: BLOOD SPECIMEN Ordering Facility: [facility] Address: [address] [place] [address] Performed By: #### 5 8410-2 #### [facility] CLIA [id number] [address] [place] [address] [place] Platelet mean volume (Bld) [Entitic vol] 9.7 fL Normal 9.0-12.7 [facility] Comment on above: Order Comment: Speci men Type: BLOOD SPECIMEN Ordering Facility: [facility] Address: [address] [place] [address] Performed By: #### 5 8410-2 #### [facility] CLIA [id number] [address] [place] [address] [place] Platelets (Bld) [#/Vol] 251 10*3/uL Normal 150-400 [facility] Comment on above: Order Comment: Speci men Type: BLOOD SPECIMEN Ordering Facility: [facility] Address: [address] [place] [address] Performed By: #### 5 8410-2 #### [facility] CLIA [id number] [address] [place] [address] [place] RBC (Bld) [#/Vol] 3.93 10*6/uL Normal 3.90-5.20 [facility] Comment on above: Order Comment: Speci men Type: BLOOD SPECIMEN Ordering Facility: [facility] Address: [address] [place] [address] Performed By: #### 5 8410-2 #### [facility] CLIA [id number] [address] [place] [address] [place] WBC (Bld) [#/Vol] 10.76 10*3/uL Normal 3.70-11.00 [facility] Comment on above: Order Comment: Dalila hemphill Type: BLOOD SPECIMEN Ordering Facility: [facility] Address: [address] [place] [address] Performed By: #### 5 8410-2 #### [facility] CLIA [id number] [address] [facility] [address] OF [facility] CNDSon 09-15-2023 CNDS HNO ID: [id number] Author: JASIEL TURNER MD Service: Thoracic Surgery Author Type: Nurse Practitioner Type: Discharge Summary Filed: 09/17/2023 11:28 Note Text: ----- Attestation signed by Jasiel Turner MD at 09/17/2023 11:28 AM I agree with the discharge summary created by my nurse practitioner. Jasiel Turner MD ----- Department of Thoracic Surgery Discharge Summary (Template ID [id number]) PATIENT NAME: Marnie Arana ADMISSION DATE: 09/13/2023 DISCHARGE DATE: 09/15/2023 Attending Physician: Jasiel Turner MD Code Status: Not on file Primary Service: Surgery, Hvi Thoracic Admission Diagnosis: Myasthenia gravis, thymoma Discharge Diagnosis: Myasthenia gravis, thymoma Reason for Hospitalization: 53 year old female who presented with blurry and intermittent double vision which began in May 2023. 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 She was referred to neurology and initiated pyridostigmine and prednisone. For maximal therapy, she now presents for resection. Operations during Hospitalization: DATE: 09/13/2023 OPERATION: Robotic bilateral thymectomy Hospital Course: * How was the Reason for Hospitalization Addressed: Taken to OR and underwent robotic bilateral thymectomy as planned. Mass visualized in thymus, removed en-bloc. No OR complications. Extubated uneventfully, weaned to room air. Home MG meds resumed and no exacerbation of symptoms. Mechanical and pharmacologic DVT prophylaxis instituted without sign of acute DVT. Bilateral pleural shasta drains placed at time of surgery with good lung expansion and no air leak. Right pleural shatsa removed but she was discharged home with the left sided shasta drain for high but serous outputs. * What were the Active Issues: None * Hospital Course Complicated by: None * Extended Hospital Stay Due to: Expected length of stay * Specific Medication Changes: None * Surgical Pathology/Microbiology: Pending at time of discharge * Pain: Controlled with tylenol, NSAID and oxycodone * Surgical Incisions/ Wounds: Bilateral thoracoport incisions open to air without sign of infection * Tubes/Lines/Drains on Discharge: LEFT 19 Fr pleural shasta drain to bulb, no air leak, draining serosang fluid * Patient Condition at Discharge: Stable * Disposition: Home with Self Care Problem List: Patient Active Hospital Problem List: Thymoma (09/13/2023) Postoperative pain (09/13/2023) Summary (09/13/2023) Myasthenia gravis without exacerbation ([facility]) () Consults: None Procedures/Radiology: None Information Provided to the Patient: Patient given copy of After Visit Summary which included activity instructions, diet instructions, wound care instructions, medication instructions and follow up appointment. ALLERGIES No Known Allergies Discharge Medications: Medication List START taking these medications acetaminophen 500 mg tablet Commonly known as: TYLENOL Take 2 tablets by mouth every 6 hours for 7 days. ibuprofen 600 mg tablet Commonly known as: MOTRIN Take 1 tablet by mouth every 6 hours as needed for pain. oxyCODONE IR 5 mg immediate release tablet Commonly known as: ROXICODONE Take 1 tablet by mouth every 6 hours as needed for pain for up to 7 days. polyethylene glycol 3350 17 gram packet Take 1 Packet by mouth once daily for 7 days. For prevention of postoperative opioid induced constipation.. Dissolve dose in 4 - 8 ounces of liquid and take as directed. CONTINUE taking these medications predniSONE 10 mg tablet Commonly known as: DELTASONE Take 2 tablets by mouth once daily. pyRIDostigmine bromide 30 mg Tab Take 1 tablet by mouth four times daily. STOP taking these medications mupirocin 2 % ointment Commonly known as: BACTROBAN Where to Get Your Medications These medications were sent to [facility] [address] [place] [address] Hours: Sunday-Sunday 7am-8pm, Sunday, Sunday and Holidays 9am-5pm ibuprofen 600 mg tablet oxyCODONE IR 5 mg immediate release tablet You can get these medications from any pharmacy You don't need a prescription for these medications acetaminophen 500 mg tablet polyethylene glycol 3350 17 gram packet Transitions of Care Critical Issues: Outpatient Management: * Are there important medication changes and/or outstanding issues that need to be addressed: continue home MG meds * What is the plan for follow up: Return to clinic in 5 days for routine surgery follow up, review final path and remove remaining shasta drain Future Appointments Date Time Provider (more content not included)... Normal [facility] NURSING PROGon 09-15-2023 NURSING PROG HNO ID: [id number] Author: LISA ALBRECHT RN Service: Nursing Author Type: Registered Nurse Type: Nursing Progress Note Filed: 09/15/2023 12:18 Note Text: Other: Patient discharged home with family. Patient left unit in stable condition via wheelchair. AVS instructions given. Normal [facility] XR CHEST 1V FRONTAL PORTon 0 09-15-2023 XR CHEST 1V FRONTAL PORT * * *Final Report* * * DATE OF EXAM: Sep 15 2023 6:10AM JIX [id number] - XR CHEST 1V FRONTAL PORT / PROCEDURE REASON: Post-operative / post-procedure assessment, asymptomatic * * * * Physician Interpretation * * * * EXAMINATION: CHEST RADIOGRAPH (PORTABLE SINGLE VIEW AP) Exam Date/Time: 09/15/2023 6:10 AM Clinical History: Post-operative / post-procedure assessment, asymptomatic, Shortness of breath, Evaluate tube, line, or lead position MQ: [id number]_6 Comparison: 1 day prior RESULT: Lines, tubes, and devices: DELANEY drains overlie both hemithoraces. Lungs and pleura: Lung volumes are low, likely secondary to hypoinflation. There are patchy regions of atelectasis in both lungs. There is no overt interstitial edema. No substantial pleural effusions or definite pneumothorax is identified. Cardiomediastinal silhouette: Patient is status post reported thymectomy. The cardiomediastinal silhouette is stable since the prior exam. Other: There is subcutaneous emphysema in the LEFT lateral chest wall. IMPRESSION: See result Architecture Faculty Member: PSCB Transcribe Date/Time: Sep 15 2023 6:49A Dictated by : VALARIE BEST MD This examination was interpreted and the report reviewed and electronically signed by: VALARIE BEST MD on Sep 15 2023 6:51AM EST [id number] Normal [facility] Basic metabolic 2000 panelon 09-14-2023 Anion gap [Moles/Vol] 6 mmol/L Low 9-18 [facility] Comment on above: Order Comment: Speci men Type: BLOOD SPECIMEN Ordering Facility: [facility] Address: [address] [place] [address] Performed By: #### 5 7021-8 #### [facility] CLIA [id number] [address] [place] [address] [place] Calcium [Mass/Vol] 9.0 mg/dL Normal 8.5-10.2 [facility] Comment on above: Order Comment: Speci men Type: BLOOD SPECIMEN Ordering Facility: [facility] Address: [address] [place] [address] Performed By: #### 5 7021-8 #### [facility] CLIA [id number] [address] [place] [address] [place] Chloride [Moles/Vol] 103 mmol/L Normal 97-105 [facility] Comment on above: Order Comment: Speci men Type: BLOOD SPECIMEN Ordering Facility: [facility] Address: [address] [place] [address] Performed By: #### 5 7021-8 #### [facility] CLIA [id number] [address] [place] [address] [place] CO2 [Moles/Vol] 29 mmol/L Normal 22-30 [facility] Comment on above: Order Comment: Speci men Type: BLOOD SPECIMEN Ordering Facility: [facility] Address: [address] [place] [address] Performed By: #### 5 7021-8 #### [facility] CLIA [id number] [address] [place] [address] [place] Creatinine [Mass/Vol] 0.77 mg/dL Normal 0.58-0.96 [facility] Comment on above: Order Comment: Speci men Type: BLOOD SPECIMEN Ordering Facility: [facility] Address: [address] [place] [address] Performed By: #### 5 7021-8 #### [facility] IA [id number] [address] [place] [address] [place] Creatinine and Glomerular filtration rate.predicted panel (S/P/Bld) 91 mL/min/1.73m??? Normal >=60 [facility] Comment on above: Order Comment: Ambikai men Type: BLOOD SPECIMEN Ordering Facility: [facility] Address: [address] [place] [address] Result Comment: Rose Marie mated Glomerular Filtration Rate (eGFR) is calculated using the 2020 CKD-EPI creatinine equation. This equation utilizes serum creatinine, sex, and age as parameters. The creatinine assay has traceable calibration to isotope dilution-mass spectrometry. Refer to KDIGO guidelines for clinical interpretation. In patients with unstable renal function, e.g. those with acute kidney injury, the eGFR may not accurately reflect actual GFR. Performed By: #### 5 7021-8 #### [facility] CLIA [id number] [address] [place] [address] [place] Glucose [Mass/Vol] 113 mg/dL High 74-99 [facility] Comment on above: Order Comment: Speci men Type: BLOOD SPECIMEN Ordering Facility: [facility] Address: [address] [place] [address] Result Comment: The [place] Diabetes Association (ADA) provides guidance for cutoff values for fasting glucose and random glucose. The ADA defines fasting as no caloric intake for at least 8 hours. Fasting plasma glucose results between 100 to 125 mg/dL indicate increased risk for diabetes (prediabetes). Fasting plasma glucose results greater than or equal to 126 mg/dL meet the criteria for diagnosis of diabetes. In the absence of unequivocal hyperglycemia, results should be confirmed by repeat testing. In a patient with classic symptoms of hyperglycemia or hyperglycemic crisis, random plasma glucose results greater than or equal to 200 mg/dL meet the criteria for diagnosis of diabetes. Reference: Standards of Medical Care in Diabetes 2016, [place] [employer]. Diabetes Care. 2016.39(Suppl 1). Performed By: #### 5 7021-8 #### [facility] CLIA [id number] [address] [place] [address] [place] Potassium [Moles/Vol] 4.3 mmol/L Normal 3.7-5.1 [facility] Comment on above: Order Comment: Speci men Type: BLOOD SPECIMEN Ordering Facility: [facility] Address: [address] [place] [address] Performed By: #### 5 7021-8 #### [facility] CLIA [id number] [address] [place] [address] [place] Sodium [Moles/Vol] 138 mmol/L Normal 136-144 [facility] Comment on above: Order Comment: Speci men Type: BLOOD SPECIMEN Ordering Facility: [facility] Address: [address] [place] [address] Performed By: #### 5 7021-8 #### [facility] CLIA [id number] [address] [place] [address] [place] Urea nitrogen [Mass/Vol] 8 mg/dL Normal 7-21 [facility] Comment on above: Order Comment: Speci men Type: BLOOD SPECIMEN Ordering Facility: [facility] Address: [address] [place] [address] Performed By: #### 5 7021-8 #### [facility] CLIA [id number] [address] [place] [address] [place] Anion gap [Moles/Vol] 7 mmol/L Low 9-18 [facility] Comment on above: Order Comment: Speci men Type: BLOOD SPECIMEN Ordering Facility: [facility] Address: [address] [place] [address] Performed By: #### 5 7021-8 #### [facility] CLIA [id number] [address] [place] [address] [place] Calcium [Mass/Vol] 8.3 mg/dL Low 8.5-10.2 [facility] Comment on above: Order Comment: Speci men Type: BLOOD SPECIMEN Ordering Facility: [facility] Address: [address] [place] [address] Performed By: #### 5 7021-8 #### [facility] CLIA [id number] [address] [place] [address] [place] Chloride [Moles/Vol] 102 mmol/L Normal 97-105 [facility] Comment on above: Order Comment: Speci men Type: BLOOD SPECIMEN Ordering Facility: [facility] Address: [address] [place] [address] Performed By: #### 5 7021-8 #### [facility] CLIA [id number] [address] [place] [address] [place] CO2 [Moles/Vol] 26 mmol/L Normal 22-30 [facility] Comment on above: Order Comment: Speci men Type: BLOOD SPECIMEN Ordering Facility: [facility] Address: [address] [place] [address] Performed By: #### 5 7021-8 #### [facility] CLIA [id number] [address] [place] [address] [place] Creatinine [Mass/Vol] 0.76 mg/dL Normal 0.58-0.96 [facility] Comment on above: Order Comment: Dalila hempihll Type: BLOOD SPECIMEN Ordering Facility: [facility] Address: [address] [place] [address] Performed By: #### 5 7021-8 #### [facility] CLIA [id number] [address] [place] [address] [place] Creatinine and Glomerular filtration rate.predicted panel (S/P/Bld) 93 mL/min/1.73m??? Normal >=60 [facility] Comment on above: Order Comment: Dalila hemphill Type: BLOOD SPECIMEN Ordering Facility: [facility] Address: [address] [place] [address] Result Comment: Rose Marie mated Glomerular Filtration Rate (eGFR) is calculated using the 2020 CKD-EPI creatinine equation. This equation utilizes serum creatinine, sex, and age as parameters. The creatinine assay has traceable calibration to isotope dilution-mass spectrometry. Refer to KDIGO guidelines for clinical interpretation. In patients with unstable renal function, e.g. those with acute kidney injury, the eGFR may not accurately reflect actual GFR. Performed By: #### 5 7021-8 #### [facility] CLIA [id number] [address] [place] [address] [place] [place] Glucose [Mass/Vol] 384 mg/dL High 74-99 [facility] Comment on above: Order Comment: Dalila hemphill Type: BLOOD SPECIMEN Ordering Facility: [facility] Address: [address] [place] [address] Result Comment: The [place] Diabetes Association (ADA) provides guidance for cutoff values for fasting glucose and random glucose. The ADA defines fasting as no caloric intake for at least 8 hours. Fasting plasma glucose results between 100 to 125 mg/dL indicate increased risk for diabetes (prediabetes). Fasting plasma glucose results greater than or equal to 126 mg/dL meet the criteria for diagnosis of diabetes. In the absence of unequivocal hyperglycemia, results should be confirmed by repeat testing. In a patient with classic symptoms of hyperglycemia or hyperglycemic crisis, random plasma glucose results greater than or equal to 200 mg/dL meet the criteria for diagnosis of diabetes. Reference: Standards of Medical Care in Diabetes 2016, [place] Diabetes Association. Diabetes Care. 2016.39(Suppl 1). Performed By: #### 5 7021-8 #### [facility] CLIA [id number] [address] [place] [address] [place] Potassium [Moles/Vol] 5.6 mmol/L High 3.7-5.1 [facility] Comment on above: Order Comment: Speci men Type: BLOOD SPECIMEN Ordering Facility: [facility] Address: [address] [place] [address] Performed By: #### 5 7021-8 #### [facility] CLIA [id number] [address] [place] [address] [place] Sodium [Moles/Vol] 135 mmol/L Low 136-144 [facility] Comment on above: Order Comment: Speci men Type: BLOOD SPECIMEN Ordering Facility: [facility] Address: [address] [place] [address] Performed By: #### 5 7021-8 #### [facility] CLIA [id number] [address] [place] [address] [place] Urea nitrogen [Mass/Vol] 8 mg/dL Normal 7-21 [facility] Comment on above: Order Comment: Speci men Type: BLOOD SPECIMEN Ordering Facility: [facility] Address: [address] [place] [address] Performed By: #### 5 7021-8 #### [facility] CLIA [id number] [address] [place] [address] [place] CBC panel Auto (Bld)on 09-13 Erythrocyte distribution width (RBC) [Ratio] 13.8 % Normal 11.5-15.0 [facility] Comment on above: Order Comment: Speci men Type: BLOOD SPECIMEN Ordering Facility: [facility] Address: [address] [place] [address] Performed By: #### 5 8410-2 #### [facility] CLIA [id number] [address] [place] [address] [place] Hematocrit (Bld) [Volume fraction] 37.8 % Normal 36.0-46.0 [facility] Comment on above: Order Comment: Speci men Type: BLOOD SPECIMEN Ordering Facility: [facility] Address: [address] [place] [address] Performed By: #### 5 8410-2 #### [facility] CLIA [id number] [address] [place] [address] [place] Hemoglobin (Bld) [Mass/Vol] 12.1 g/dL Normal 11.5-15.5 [facility] Comment on above: Order Comment: Speci men Type: BLOOD SPECIMEN Ordering Facility: [facility] Address: [address] [place] [address] Performed By: #### 5 8410-2 #### [facility] CLIA [id number] [address] [place] [address] [place] MCH (RBC) [Entitic mass] 29.7 pg Normal 26.0-34.0 [facility] Comment on above: Order Comment: Speci men Type: BLOOD SPECIMEN Ordering Facility: [facility] Address: [address] [place] [address] Performed By: #### 5 8410-2 #### [facility] CLIA [id number] [address] [place] [address] [place] MCHC (RBC) [Mass/Vol] 32.0 g/dL Normal 30.5-36.0 [facility] Comment on above: Order Comment: Speci men Type: BLOOD SPECIMEN Ordering Facility: [facility] Address: [address] [place] [address] Performed By: #### 5 8410-2 #### [facility] CLIA [id number] [address] [place] [address] [place] MCV (RBC) [Entitic vol] 92.9 fL Normal 80.0-100.0 [facility] Comment on above: Order Comment: Speci men Type: BLOOD SPECIMEN Ordering Facility: [facility] Address: [address] [place] [address] Performed By: #### 5 8410-2 #### [facility] CLIA [id number] [address] [place] [address] [place] Nucleated RBC (Bld) [#/Vol] 10*3/uL Normal <0.01 [facility] Comment on above: Order Comment: Speci men Type: BLOOD SPECIMEN Ordering Facility: [facility] Address: [address] [place] [address] Performed By: #### 5 8410-2 #### [facility] CLIA [id number] [address] [place] [address] [place] Platelet mean volume (Bld) [Entitic vol] 9.8 fL Normal 9.0-12.7 [facility] Comment on above: Order Comment: Speci men Type: BLOOD SPECIMEN Ordering Facility: [facility] Address: [address] [place] [address] Performed By: #### 5 8410-2 #### [facility] CLIA [id number] [address] [place] [address] [place] Platelets (Bld) [#/Vol] 306 10*3/uL Normal 150-400 [facility] Comment on above: Order Comment: Speci men Type: BLOOD SPECIMEN Ordering Facility: [facility] Address: [address] [place] [address] Performed By: #### 5 8410-2 #### [facility] CLIA [id number] [address] [place] [address] [place] RBC (Bld) [#/Vol] 4.07 10*6/uL Normal 3.90-5.20 [facility] Comment on above: Order Comment: Speci men Type: BLOOD SPECIMEN Ordering Facility: [facility] Address: [address] [place] [address] Performed By: #### 5 8410-2 #### [facility] CLIA [id number] [address] [place] [address] [place] WBC (Bld) [#/Vol] 11.18 10*3/uL High 3.70-11.00 [facility] Comment on above: Order Comment: Speci men Type: BLOOD SPECIMEN Ordering Facility: [facility] Address: [address] [place] [address] Performed By: #### 5 8410-2 #### [facility] CLIA [id number] [address] [place] [address] [place] Erythrocyte distribution width (RBC) [Ratio] 14.0 % Normal 11.5-15.0 [facility] Comment on above: Order Comment: Speci men Type: BLOOD SPECIMEN Ordering Facility: [facility] Address: [address] [place] [address] Performed By: #### 5 8410-2 #### [facility] CLIA [id number] [address] [place] [address] [place] Hematocrit (Bld) [Volume fraction] 33.5 % Low 36.0-46.0 [facility] Comment on above: Order Comment: Speci men Type: BLOOD SPECIMEN Ordering Facility: [facility] Address: [address] [place] [address] Performed By: #### 5 8410-2 #### [facility] CLIA [id number] [address] [place] [address] [place] Hemoglobin (Bld) [Mass/Vol] 10.5 g/dL Low 11.5-15.5 [facility] Comment on above: Order Comment: Speci men Type: BLOOD SPECIMEN Ordering Facility: [facility] Address: [address] [place] [address] Performed By: #### 5 8410-2 #### [facility] CLIA [id number] [address] [place] [address] [place] MCH (RBC) [Entitic mass] 30.1 pg Normal 26.0-34.0 [facility] Comment on above: Order Comment: Speci men Type: BLOOD SPECIMEN Ordering Facility: [facility] Address: [address] [place] [address] Performed By: #### 5 8410-2 #### [facility] CLIA [id number] [address] [place] [address] [place] MCHC (RBC) [Mass/Vol] 31.3 g/dL Normal 30.5-36.0 [facility] Comment on above: Order Comment: Speci men Type: BLOOD SPECIMEN Ordering Facility: [facility] Address: [address] [place] [address] Performed By: #### 5 8410-2 #### [facility] CLIA [id number] [address] [place] [address] [place] MCV (RBC) [Entitic vol] 96.0 fL Normal 80.0-100.0 [facility] Comment on above: Order Comment: Speci men Type: BLOOD SPECIMEN Ordering Facility: [facility] Address: [address] [place] [address] Performed By: #### 5 8410-2 #### [facility] CLIA [id number] [address] [place] [address] [place] Nucleated RBC (Bld) [#/Vol] 10*3/uL Normal <0.01 [facility] Comment on above: Order Comment: Speci men Type: BLOOD SPECIMEN Ordering Facility: [facility] Address: [address] [place] [address] Performed By: #### 5 8410-2 #### [facility] CLIA [id number] [address] [place] [address] [place] Platelet mean volume (Bld) [Entitic vol] 10.1 fL Normal 9.0-12.7 [facility] Comment on above: Order Comment: Speci men Type: BLOOD SPECIMEN Ordering Facility: [facility] Address: [address] [place] [address] Performed By: #### 5 8410-2 #### [facility] CLIA [id number] [address] [place] [address] [place] Platelets (Bld) [#/Vol] 254 10*3/uL Normal 150-400 [facility] Comment on above: Order Comment: Speci men Type: BLOOD SPECIMEN Ordering Facility: [facility] Address: [address] [place] [address] Performed By: #### 5 8410-2 #### [facility] CLIA [id number] [address] [place] [address] [place] RBC (Bld) [#/Vol] 3.49 10*6/uL Low 3.90-5.20 [facility] Comment on above: Order Comment: Speci men Type: BLOOD SPECIMEN Ordering Facility: [facility] Address: [address] [place] [address] Performed By: #### 5 8410-2 #### [facility] CLIA [id number] [address] [place] [address] [place] WBC (Bld) [#/Vol] 10.91 10*3/uL Normal 3.70-11.00 [facility] Comment on above: Order Comment: Speci men Type: BLOOD SPECIMEN Ordering Facility: [facility] Address: [address] [place] [address] Performed By: #### 5 8410-2 #### [facility] CLIA [id number] [address] [place] [address] [place] XR CHEST 1V FRONTAL PORTon 0 09-14-2023 XR CHEST 1V FRONTAL PORT * * *Final Report* * * DATE OF EXAM: Sep 14 2023 6:27AM JIX [id number] - XR CHEST 1V FRONTAL PORT / PROCEDURE REASON: Post-operative / post-procedure assessment, asymptomatic * * * * Physician Interpretation * * * * EXAMINATION: CHEST RADIOGRAPH (PORTABLE SINGLE VIEW AP) Exam Date/Time: 09/14/2023 6:27 AM Clinical History: Post-operative / post-procedure assessment, asymptomatic, Shortness of breath, Evaluate tube, line, or lead position MQ: [id number] Comparison: 1 day prior RESULT: Lines, tubes, and devices: Right upper chest tube and left lower chest drains remain. Lungs and pleura: Lungs are hyperinflated. Bibasilar atelectasis. No pleural effusion or pneumothorax. Cardiomediastinal silhouette: Stable cardiomediastinal silhouette. Other: . IMPRESSION: See result. Architecture Faculty Member: [employer] Transcribe Date/Time: Sep 14 2023 6:45A Dictated by : PROSPER JENSEN MD This examination was interpreted and the report reviewed and electronically signed by: XU TREVINO MD on Sep 14 2023 9:29AM EST [id number] Normal [facility] ANES POSTPROC EVALon 024 ANES POSTPROC EVAL HNO ID: [id number] Author: TYLER TEMPLE MD Service: ? Author Type: Anesthesiologist Type: Anesthesia Postprocedure Evaluation Filed: 09/13/2023 15:13 Note Text: POST ANESTHESIA EVALUATION NOTE : 1970 Procedure Summary Date: 09/13/23 Room / Location: [address] AND VAS Anesthesia Start: 701 Anesthesia Stop: 114 Procedure: THYMECTOMY, SPLIT OR TRANSTHORACIC Robotic b/l thymectomy C 2.5-3 (Bilateral: Chest) Diagnosis: Myasthenia gravis (HCC) (Myasthenia gravis (HCC) [G70.00]) Surgeons: Jasiel Turner MD Responsible Provider: Tyler Temple MD Anesthesia Type: general ASA Status: 4 Anesthesia Type: general Airway Type: ETT Last Vitals Vitals Value Taken Time BP 173/79 09/13/23 1509 Temp 36.4 ?C (97.5 ?F) 09/13/23 1359 Pulse 60 09/13/23 1510 Resp 18 09/13/23 1415 SpO2 97 % 09/13/23 1415 Vitals shown include unfiled device data. Post Anesthesia Patient Status Patient Evaluation: PACU. PACU/ICU Patient Condition: stable. Anticipated Disposition: inpatient floor planned admission. Neurological Status: aware and responsive. Pulmonary Status: breathing comfortably on supplemental oxygen Airway Control: returned to baseline unsupported. Cardiovascular Status: stable. Pain Management: clinically adequate Postoperative Hydration: acceptable. Intraoperative Events: no significant anesthesia events Post Operative Nausea/Vomiting Status: no significant post operative nausea or vomiting Recommendation: continue current plan of care and further care per PACU/ICU/floor team. Anesthesia Observations No Documentation SIGNATURE: Tyler Lu MD PATIENT NAME: Marnie Arana DATE: September 13, 2023 TIME: 3:12 PM CSN: [id number] Normal [facility] ANES PRE-OPon 09-13-2023 ANES PRE-OP HNO ID: [id number] Author: TYLER TEMPLE MD Service: ? Author Type: Anesthesiologist Type: Anesthesia Preprocedure Evaluation Filed: 09/13/2023 07:03 Note Text: ANESTHESIOLOGY DAY OF SURGERY NOTE : 1970 Procedure Information Date/Time: 09/13/23629 Procedure: THYMECTOMY, SPLIT OR TRANSTHORACIC Robotic b/l thymectomy C 2.5-3 (Bilateral: Chest) Location: [place] [address] / [facility] [address] AND VAS Surgeons: Jasiel Turner MD Estimated body mass index is 38.09 kg/m? as calculated from the following: Height as of this encounter: 160 cm (5' 3 ). Weight as of this encounter: 97.5 kg (215 lb). Most recent hematocrit and potassium results: Potassium 4.3 09/12/2023 Relevant Problems No relevant active problems I - PHYSICAL EVALUATION AIRWAY Patient intubated: No. Tracheostomy tube not present Mallampati: I. TM distance: >3 FB. Neck ROM: full ROM without neurological symptoms. Mouth opening: adequate. Short neck: no. Thick neck: no Zimmer present: no Lip Bite Test: II Microretrognathia/Microna gthia/Recessed Chin: No DENTAL Dental findings: teeth intact. Additional exam findings: no II - ANESTHESIA PLAN ASA Score: 4 Anesthetic Plan: general Airway type: ETT The patient is not a current smoker. NPO Status: adequate Beta Luci Monitoring Plan Monitoring plan: standard ASA. Post Procedure Analgesic Plan Postoperative analgesic plan: parenteral or oral opioids. Informed Consent Anesthetic risks, benefits, alternatives, personnel and consent discussed: yes. Patient / Responsible Libertarian agrees to proceed: yes Patient / Surrogate agrees to blood products: Yes Significant changes in the patient condition since the History and Physical, not otherwise documented in primary service progress note: no. Potential Anesthesia issues that may suggest increased risk of complications or contraindication to planned procedure: none. Discussed the possibility of lip / dental damage: yes Vitals Value Taken Time BP 157/77 09/13/23614 Pulse 60 09/13/23614 Resp 18 09/13/23614 Temp 36.2 ?C (97.2 ?F) 09/13/23614 SpO2 96 % 09/13/23614 Facility-Administered Medications as of 09/13/2023 Medication Dose Route Frequency - [COMPLETED] Chlorhexidine Gluconate 0.12 % 15 mL (PERIDEX) 15 mL ORAL ONCE - [COMPLETED] acetaminophen 1,000 mg tab(s) (TYLENOL) 1,000 mg ORAL ONCE Outpatient Medications as of 09/13/2023 Medication Sig - predniSONE (DELTASONE) 10 mg tablet Take 2 tablets by mouth once daily. - pyRIDostigmine bromide 30 mg tab Take 1 tablet by mouth four times daily. I have interviewed and examined the patient. I have reviewed the medical record and/or the pre-anesthesia evaluation, pertinent labs, and test results. This contains updated information obtained within 48 hours of Surgery/Procedure. SIGNATURE: Tyler Lu MD PATIENT NAME: Marnie Arana DATE: September 13, 2023 TIME: 6:59 AM CSN: [id number] [facility] BRIEF OP NOTon 09-13-2023 BRIEF OP NOT HNO ID: [id number] Author: LINK MAYO MD Service: Thoracic Surgery Author Type: Resident Type: Brief Op Note Filed: 09/13/2023 12:10 Note Text: BRIEF OP NOTE LOG ID: [id number] Surgery/Procedure Date: 09/13/2023 Incision/Procedure Start Time: 8:00 AM Incision Close/Procedure End Time: 11:23 AM Surgeon(s)/Proceduralist( s) and Credit Portfolio Manager(s): Surgeon(s) and Role: * Jasiel Turner MD - Primary * Link Mayo MD - Resident - Assisting Procedure(s): Robotic bilateral thymectomy Anesthesia: General Findings: Mass visualized in thymus. Removed En-bloc. Estimated Blood Loss: 25 mls Specimens: ID Type Source Tests Collected by Time Destination A : pericardium Tissue PERICARDIUM SURGICAL PATHOLOGY Jasiel Turner MD 09/13/2023 9:22 AM B : total thymectomy with thymoma Tissue THYMUS RESECTION SURGICAL PATHOLOGY Jasiel Turner MD 09/13/2023 11:05 AM Complications: None Pre-Op/Pre-Procedure Diagnosis: Thymoma Post-Op/Post-Procedure Diagnosis: Same SIGNATURE: Link Mayo MD PATIENT NAME: Marnie Arana DATE: September 13, 2023 TIME: 12:08 PM PAGER/CONTACT #: [phone] Normal [facility] OPERATIVE NOon 09-13-2023 OPERATIVE NO HNO ID: [id number] Author: JASIEL TURNER MD Service: Thoracic Surgery Author Type: Physician Type: Operative Report Filed: 10/02/2023 11:08 Note Text: [facility] - Operative Report [address] [place] [address] [place] MARNIE ARANA : 1970 AGE: 53. SEX: F PATIENT TYPE: I [facility] LOCATION: [id number] ATTENDING PHYSICIAN: Jasiel Turner M.D. CSN NUMBER: [id number] DATE OF SURGERY/PROCEDURE: 09/13/2023 INCISION/PROCEDURE START TIME: 8 a.m. INCISION CLOSE/PROCEDURE END TIME: 11:23 a.m. PREOPERATIVE DIAGNOSIS: Thymoma and myasthenia gravis. POSTOPERATIVE DIAGNOSIS: Thymoma and myasthenia gravis. SURGEON: Jasiel Turner M.D. PERSONAL DEVELOPMENT EDUCATOR: Link Mayo M.D. SURGERY/PROCEDURE: Bilateral robotic assisted VATS total thymectomy ANESTHESIA: General endotracheal anesthesia. INDICATION FOR PROCEDURE: The patient is a 53-year-old female who has sero-marker positive myasthenia gravis whose symptoms are isolated to double vision. She has improvement in her symptom control with the medication. She now presents for a bilateral total thymectomy. DESCRIPTION OF PROCEDURE: The patient was brought to the operating room. Anesthesia was induced. The patient was placed in a slightly bumped right lateral decubitus position and the left chest was prepped and draped in the usual fashion. Robotic ports were placed in the usual location and a surgical robot was docked. We started the dissection about 0.5 cm from the phrenic vein in the midportion of the chest and carried towards the thoracic inlet. There was a thymic lesion identified at this point and care was taken to avoid entering the capsule. At this point, the lesion itself was mobilized en bloc off the vein and the tissue was controlled with the tissue sealing device. Subsequently, we carried out the dissection to the level of the diaphragm and then once we successfully mobilized the thymus off the pericardium, we then incised the thymus off the sternal wall. The dissection was carried out to the level of the right pleural edge, but the right pleura was not injured at this point. Next, we then proceeded to make a small pericardial window for a clinically evident pericardial effusion. At this point, a #19 Shasta drain was left in place, the ports were closed, and then the patient's right side was prepped and draped in the usual fashion after having bumped lateral position. We then placed 3 ports to mirror the left side on the right side and then, the surgical robot was docked. We then proceeded to mobilize the thymus off the phrenic and then subsequently superiorly take the thymus off the innominate vein. We preserved the bilateral mammary veins. At the completion of this, the lesions of the thymus were removed en bloc and with EndoCatch bag to one of the port sites, there was some fracture of the tissue noted from having pulling the thymus out from a very small incision, but otherwise was intact. Local analgesia had been infiltrated as intercostal blocks bilaterally and another #19 Shasta drain was left in place. The patient was extubated in the operating room and transferred to the recovery room in stable condition. EBL: 25 mL. DRAINS: As noted in the body of the text. SPECIMENS: As noted in the body of the text. COMPLICATIONS: None. Jasiel Turner M.D. SR:[id number] /[id number] Normal [facility] SURGICAL PATHOLOGYon 024 BLOCK FOR ADDITIONAL BIOMARKERS/MOLECULAR STUDIES B1 Normal [facility] Comment on above: Order Comment: Speci men Type: TISSUE SPECIMENOrdering Facility: [facility] Address: [address] [place] [address] Performed By: #### S ####[facility] [id number] [place] [address] [place] CASE REPORT Normal [facility] Comment on above: Order Comment: Speci men Type: TISSUE SPECIMENOrdering Facility: [facility] Address: [address] [place] [address] Result Comment: Surg ica Pathology Report Case: [id number] Authorizing Provider: Jasiel Turner MD Collected: 09/13/2023 09:22 AM Ordering Location: Admitting Received: 09/13/2023 01:40 PM Pathologist: Kandy Mcghee MD Specimens: A) - PERICARDIUM, pericardium B) - THYMUS RESECTION, total thymectomy with thymoma Performed By: #### S ####[facility] [id number] [place] [address] [place] CLINICAL HISTORY Normal [facility] Comment on above: Order Comment: Speci men Type: TISSUE SPECIMENOrdering Facility: [facility] Address: [address] [place] [address] Result Comment: Pre- op diagnosis: Myasthenia gravis (HCC) [G70.00] Performed By: #### S ####[facility] [id number] [address] [place] DIAGNOSIS COMMENT Normal [facility] Comment on above: Order Comment: Speci men Type: TISSUE SPECIMENOrdering Facility: [facility] Address: [address] [place] [address] Result Comment: A. A Movat stain has been used to evaluate the pericardium. B. Immunohistochemical studies demonstrate the tumor cells are diffusely positive for CK AE1AE3, CK CAM5.2 and p63. The admixed lymphocytes within the neoplasm are strongly positive for CD3 (in both types A and B foci); TdT is predominantly positive in the Type B area, and, CD20 is present as scattered clusters throughout the tumor. The tumor appears present at the anterior (sternal) margin of excision (orange ink--Slide B4) and at a disrupted posterior margin (blue ink---Slide B1). Dr. Vikash Gold, Thoracic pathology, has also reviewed this case and concurs. Laboratory Developed Test (LDT) Disclaimer: Performance characteristics of immunohistochemical, immunofluorescent and chromogenic in-situ hybridization tests have been determined by the performing laboratory within ???s [facility] Medicine [place] ([facility], [facility], [facility], [facility], [facility], or [facility]) in a manner consistent with CLIA requirements. One or more of these tests have not been cleared or approved by the FDA. [facility] is regulated under CLIA as qualified to perform high-complexity testing. These tests are used for clinical purposes. They should not be regarded as investigational or for research. Positive and negative controls stain appropriately. Performed By: #### S ####[facility] [id number] [address] FINAL DIAGNOSIS Normal [facility] Comment on above: Order Comment: Speci joby Type: TISSUE SPECIMENOrdering Facility: [facility] Address: [address] [place] [address] Result Comment: A. P ericardium, excision: - Negative for neoplasm. B. Thymus, total thymectomy: - Thymoma, World Health Organization (WHO), Type AB, 4.5 cm - Four (4) lymph nodes negative for neoplasm. Performed By: #### S ####[facility] [id number] [address] OF [facility] FINAL PERFORMING LAB Normal [facility] Comment on above: Order Comment: Speci men Type: TISSUE SPECIMENOrdering Facility: [facility] Address: [address] [place] [address] Result Comment: Diag nostic interpretation performed at [address] [id number] Seamer: George Dhillon M.D. Performed By: #### S ####[facility] [id number] [address] GROSS DESCRIPTION A. PERICARDIUM Normal [facility] Comment on above: Order Comment: Speci men Type: TISSUE SPECIMENOrdering Facility: [facility] Address: [address] [place] [address] Result Comment: Rece ived fresh labeled pericardium is an irregularly shaped, pink-greco, heavily cauterized membranous tissue fragment measuring 0.8 x 0.7 x 0.2 cm. Sectioned and entirely submitted in cassette A1. CRISTO September 13, 2023 2:46 PM Gross examination performed at [place] [address] CLIA# [id number] B. THYMUS RESECTION Received in formalin labeled total thymectomy with thymoma is an excision of thymus measuring 25.5 x 11.5 x 4.3 cm and 134.7 g. An area of roughening along the anterior aspect is consistent with the site of sternal detachment. The specimen is inked as follows: Anterior surface-orange and posterior surface-blue. There is a well-circumscribed, rubbery mass arising in the left superior aspect measuring 4.5 x 3.3 x 2.8 cm. The mass is encapsulated, lobulated, pink-white, and soft. The remainder of the thymic tissue is yellow, soft, and lobulated. There are scant ovoid, pink-greco, soft lymph nodes ranging from 0.3 to 0.8 cm in greatest dimension multiple gross photographs are taken and attached to the case. Panel Machine Setter sections are submitted as follows: B1-B2: Mass with anterior and posterior surface B3: Central mass B4: Anterior surface B5: Posterior surface B6: Right superior thymus B7: Left thymus B8: Right thymus B9: 4 intact lymph nodes [facility] September 14, 2023 11:54 AM Gross examination performed at [facility], [address] [place] [address] CLIA# [id number] Performed By: #### S ####[facility] [id number] [place] [address] [place] SYNOPTIC REPORT THYMUS Normal [facility] Comment on above: Order Comment: Speci men Type: TISSUE SPECIMENOrdering Facility: [facility] Address: [address] [place] [address] Result Comment: THYM US: RESECTION - All Specimens 8th Edition - Protocol posted: 09/28/2021 SPECIMEN Procedure: Thymectomy TUMOR Tumor Site: Thymus Histologic Type: Type AB thymoma Tumor Size: Greatest Dimension (Centimeters): 4.5 cm Lymphovascular Invasion: Not identified Treatment Effect: No known presurgical therapy Site(s) Involved by Direct Tumor Invasion: Microscopic transcapsular invasion into thymic or perithymic fat MARGINS Margin Status: Tumor present at margin Margin(s) Involved by Tumor: Anterior and posterior REGIONAL LYMPH NODES Regional Lymph Node Status: : All regional lymph nodes negative for tumor Number of Lymph Nodes Examined: 4 DISTANT METASTASIS Distant Site(s) Involved: Cannot be determined PATHOLOGIC STAGE CLASSIFICATION (pTNM, AJCC 8th Edition) Reporting of pT, pN, and (when applicable) pM categories is based on information available to the pathologist at the time the report is issued. As per the AJCC (Chapter 1, 8th Ed.) it is the managing physician???s responsibility to establish the final pathologic stage based upon all pertinent information, including but potentially not limited to this pathology report. pT Category: pT1a pN Category: pN0 Modified Masaoka Stage: Stage IIa ADDITIONAL FINDINGS Additional Findings: Age-appropriate involutional changes Performed By: #### S ####[facility] [id number] [place] [address] [place] XR CHEST 1V FRONTAL PORTon 0 09-13-2023 XR CHEST 1V FRONTAL PORT * * *Final Report* * * DATE OF EXAM: Sep 13 2023 12:22PM JIX [id number] - XR CHEST 1V FRONTAL PORT / PROCEDURE REASON: Post-operative / post-procedure assessment, asymptomatic * * * * Physician Interpretation * * * * EXAMINATION: CHEST RADIOGRAPH (PORTABLE SINGLE VIEW AP) Exam Date/Time: 09/13/2023 12:22 PM Clinical History: Post-operative / post-procedure assessment, asymptomatic, Evaluate tube, line, or lead position MQ: [id number]_6 Comparison: 1 day prior RESULT: Lines, tubes, and devices: DELANEY drains overlie both hemithoraces. Lungs and pleura: Lung volumes are low, likely secondary to hypoinflation with associated vascular crowding. New patchy regions of atelectasis are present in the lung bases. No substantial pleural effusions or definite pneumothorax is identified. Cardiomediastinal silhouette: Patient is status post reported interval thymectomy. The cardiomediastinal silhouette is stable since the prior exam. Other: There is new subcutaneous emphysema in the LEFT lateral chest wall. IMPRESSION: See result Architecture Faculty Member: JAIME Transcribe Date/Time: Sep 13 2023 2:20P Dictated by : VALARIE BEST MD This examination was interpreted and the report reviewed and electronically signed by: VALARIE BEST MD on Sep 13 2023 2:21PM EST [id number] Normal [facility] CNOVon 09-12-2023 CNOV Office Visit (CARTMN ) ----- MARNIE ARANA ([id number]) 1970 F Date Time Provider Department 09/12/23 2:20 PM ANESTHESIA CLEARANCE CARTMN During your visit today, we recorded the following information about you: Qi Hoskins MD 09/12/2023 2:36 PM Signed Cardiothoracic Anesthesiology Preoperative Assessment Service Date: 09/12/2023 Service Time: 11:32 AM Primary Care Physician: Ana María Mckeon MD Subjective Patient Entered Data: Cardiothoracic Surgery Pre-Op Questionnaire 09/06/2023 Previous anesthesia problems No Family history anesthesia problems No Blood consent Yes Esophageal history None Implanted devices No History difficult airway No Airway surgery No Ongoing pain issues No Heparin intolerance No Daily alcohol use No Illicit drug use No Scheduled procedure: Thymectomy Surgeon: Jasiel Turner Scheduled date: 09/13/2023 HPI: 53yo F scheduled for thymectomy. PMH includes: - Thymoma - CT scan shows 4.8 x 3.0 cm lobulated, mediastinal mass near the aortopulmonary window. Asymptomatic. Able to lie flat. - Myasthenia gravis on pyridostigmine 30 mg 4x daily and prednisone (10 mg daily starting 06/16/23, increased to 20 mg daily in Jul 2023). Per neurology note, symptoms began 05/2023 and are limited to double vision primarily in the afternoon, with no evidence of bulbar or proximal weakness. - Per neuro note: No need for pre-surgical optimization (I.e., IVIG or PLEX) for prevention of crisis. Given ocular only symptoms she is at very low risk of post-operative crisis. Today we discussed the anesthetic plan, what to expect, and addressed the patient's questions and concerns regarding anesthesia. Perioperative medications were discussed and the patient was instructed to: - Continue prednisone and pyridostigmine as prescribed Review no known heparin intolerance not taking anticoagulant/antiplatele t medication no non-cardiac IEDs present no known esophageal disorders blood transfusion consented -. No resulted type AND screen to review COVID-19 Immunization Status Overdue - Covid-19 Vaccine () Overdue since 03/09/2023 12/28/2021 Imm Admin: COVID-19 original vaccine, full dose, monovalent (MODERNA) 05/24/2021 Imm Admin: COVID-19 original vaccine, full dose, monovalent (MODERNA) 10/01/2020 Imm Admin: COVID-19 original vaccine, full dose, monovalent (MODERNA) Only the first 3 history entries have been loaded, but more history exists. The patient has the following: ACTIVE PROBLEM LIST Multiple Thyroid Nodules Abnormal Results of Thyroid Function Studies PAST MEDICAL HISTORY Diagnosis Date Myasthenia gravis without exacerbation (HCC) PAST SURGICAL HISTORY Procedure Laterality Date ASPIRATE/INJECT GANGLION CYST(S) TOTAL ABDOM HYSTERECTOMY FAMILY HISTORY Problem Relation Age of Onset other (Meningioma) Mother Lymphoma Mother other (Type 2 Diabetes Mellitus) Father Social History Tobacco Use Smoking status: Never Passive exposure: Never Smokeless tobacco: Never Substance Use Topics Alcohol use: Yes Comment: Rarely Drug use: Never Prior to Admission medications as of 08/18/232205 Medication Sig Last Dose Taking predniSONE (DELTASONE) 10 mg tablet Take 2 tablets by mouth once daily. pyRIDostigmine bromide 30 mg tab Take 1 tablet by mouth four times daily. No medication comments found. ALLERGIES No Known Allergies Objective Pain Assessment: Vitals: There were no vitals taken for this visit. Diagnostic tests reviewed for today's visit: Lab Value Units Date High Low HB No results within date range. HCT No results within date range. WBC No results within date range. PLT No results within date range. NA No results within date range. K No results within date range. GLUC 113 mg/dL 06/02/2023 99 65 BUN No results within date range. CREAT No results within date range. PTSEC No results within date range. INR No results within date range. APTT No results within date range. ALT No results within date range. AST No results within date range. TBILI No results within date range. TSH No results within date range. Lab Value Units Date High Low HCGQT No results within date range. UHCG No results within date range. HCG, BODY* No results within date range. Lab Value Units Date High Low ABORHD No results within date range. ABSCREEN No results within date range. No results found for: HBA1C No results found for this or any previous visit (from the past 8760 hour(s)). Assessment No problem-specific Assessment AND Plan notes found for this encounter. ANESTHESIA FINDINGS: Intubation History: No history of difficult intubation Significant Anesthesia Considerations: none Airway History: No history of difficult airway Prepared for Surgery: optimally prepared for surgery. The Following Tests/Procedures Stauffer (more content not included)... Normal [facility] CNOV Office Visit (THORMN ) ----- MARNIE ARANA ([id number]) 1970 F Date Time Provider Department 09/12/23 1:50 PM JASIEL TURNER During your visit today, we recorded the following information about you: Temperature Pulse Respiration Blood pressure 98.5 degrees 77/minute 14/minute 142/69 Weight Height 95.7 kg 1.6 m Jasiel Turner MD 09/12/2023 2:50 PM Signed CHART COPY DO NOT DISCARD . Patient here today for TCI visit. . Surgery Bilateral Robotic thymectomy scheduled for 09/13/2023. . Meds allergies reviewed. Latex Allergy: No Anticoag:vitamin d - last dose 09/04/2023 Medport: No Preoperative instructions; NPO after midnight night prior to surgery and Listerine after brushing teeth and Hibiclens Shower. Patient verbalized understanding of instructions. . Last clinic note 08/06/23 per Jasiel Turner M.D. 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 I have discussed a bilateral robotic approach for a total mediastinal thymectomy. Will have to check with her neurologist about the need for plasmapheresis pre-op given the absence of any motor weakness and a normal PFT. Plan: Robotic Thymectomy Echo . Today's visit 09/12/23: CXR: 09/12/2023 IMPRESSION: No acute radiographic abnormality. . PFT: 08/06/23 FEV1 (L) 2.63 1.75 2.40 3.02 109 DLCOunc (ml/min/mmHg) 22.24 15.54 21.71 27.88 102 6MW: NA Cardiac Studies: Echo 09/12/2023 CONCLUSIONS: - Technically difficult exam due to body habitus. - Exam indication: Pre-op non cardiac - The left ventricle is normal in size. Left ventricular systolic function is normal. EF = 65 ? 5% (visual est.) - The right ventricle is normal in size. Right ventricular systolic function is normal. - The patient has not had a prior CC echocardiographic exam for comparison. EK Impression SINUS BRADYCARDIA OTHERWISE NORMAL ECG Ventricular Rate BPM 57 Risk, benefits, and alternatives discussed per Jasiel Turner M.D. HANDP 09/12/2023 per Films CCT 07/03/2023 and CXR 09/12/2023 . Kailee Bagley RN PHYSICAL EXAM BP 142/69 Pulse 77 Temp (Src) 98.5 (Oral) Resp 14 Ht 5' 3 (1.60m) Wt 211 lb (95.7kg) SpO2 96% BMI 37.39 kg/(m2). Constitutional: Well developed and Obese HEENT: PERRLA Resp: Clear Cardiovascular: Regular rate AND rhythm GI: Soft, round Integumentary: Warm Musculoskeletal: No deformities Neurological/Psychiatric: Oriented to time, place AND person Additional systems reviewed: No additional systems reviewed MD Christ Reyes Jennifer, RN 09/12/2023 3:48 PM Addendum CBC was not done at preop lab appt. and anaesthesia (Dr.Katherine Gato MD) - ok without CBC. AGATHA Alegria Siva, MD 09/12/2023 2:50 PM Signed I have read and reviewed the documentation and agree. I wish to add the followingI wish to add the following findings which will be communicated back to the requesting physician. Jasiel Turner MD [facility] STAFF PHYSICIAN NOTE OF PERSONAL INVOLVEMENT IN CARE IMPRESSION: Patient is a 53 year old female with ocular MG and a thymoma. RBAT of a robotic Bilateral thymectomy discussed including bleeding, infection, acute on chronic exacerbation of MG sx and post-op pain. PLAN: Robotic Bilateral thymectomy Nicole-op Stress dose steroids. 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 - predniSONE (DELTASONE) 10 mg tablet Take 2 tablets by mouth once daily. - pyRIDostigmine bromide 30 mg tab Take 1 tablet by mouth four times daily. Problem List As Of Date 09/12/2023 Noted Resolved Multiple thyroid nodules [E04.2] 08/18/2023 Abnormal results of thyroid function studies [R*08/18/2023 Encounter Status:Closed by JASIEL TURNER on 09/12/23 Normal [facility] CONFIRM BLOOD TYPEon 024 ABO O Normal [facility] Comment on above: Order Comment: Speci men Type: BLOOD SPECIMEN [facility] Address: [address] [place] [address] Performed By: #### C ONABO #### [facility] CLIA [id number] [address] [place] [address] [place] Rh Nom (Bld) Positive Normal [facility] Comment on above: Order Comment: Speci men Type: BLOOD SPECIMEN [facility] Address: [address] [place] [address] Performed By: #### C ONABO #### [facility] CLIA [id number] [address] [place] [address] [place] Comprehensive metabolic 2000 panelon 09-12-2023 Albumin [Mass/Vol] 4.7 g/dL Normal 3.9-4.9 [facility] Comment on above: Order Comment: Speci men Type: BLOOD SPECIMEN [facility] Address: [address] [place] [address] Performed By: #### 5 7021-8 #### [facility] CLIA [id number] [address] [place] [address] [place] ALP [Catalytic activity/Vol] 71 U/L Normal 34-123 [facility] Comment on above: Order Comment: Speci men Type: BLOOD SPECIMEN [facility] Address: [address] [place] [address] Performed By: #### 5 7021-8 #### [facility] CLIA [id number] [address] [place] [address] [place] ALT [Catalytic activity/Vol] 19 U/L Normal 7-38 [facility] Comment on above: Order Comment: Speci men Type: BLOOD SPECIMEN [facility] Address: [address] [place] [address] Performed By: #### 5 7021-8 #### [facility] CLIA [id number] [address] [place], [place] [address] [place] Anion gap [Moles/Vol] 9 mmol/L Normal 9-18 [facility] Comment on above: Order Comment: Speci men Type: BLOOD SPECIMEN [facility] Address: [address] [place] [address] Performed By: #### 5 7021-8 #### [facility] CLIA [id number] [address] [place] [address] [place] AST [Catalytic activity/Vol] 16 U/L Normal 13-35 [facility] Comment on above: Order Comment: Speci men Type: BLOOD SPECIMEN [facility] Address: [address] [place] [address] Performed By: #### 5 7021-8 #### [facility] CLIA [id number] [address] [place] [address] [place] Bilirubin [Mass/Vol] 0.3 mg/dL Normal 0.2-1.3 [facility] Comment on above: Order Comment: Speci men Type: BLOOD SPECIMEN [facility] Address: [address] [place] [address] Performed By: #### 5 7021-8 #### [facility] CLIA [id number] [address] [place] [address] [place] Calcium [Mass/Vol] 9.5 mg/dL Normal 8.5-10.2 [facility] Comment on above: Order Comment: Speci men Type: BLOOD SPECIMEN [facility] Address: [address] [place] [address] Performed By: #### 5 7021-8 #### [facility] CLIA [id number] [address] [place] [address] [place] Chloride [Moles/Vol] 103 mmol/L Normal 97-105 [facility] Comment on above: Order Comment: Speci men Type: BLOOD SPECIMEN [facility] Address: [address] [place] [address] Performed By: #### 5 7021-8 #### [facility] CLIA [id number] [address] [place] [address] [place] CO2 [Moles/Vol] 28 mmol/L Normal 22-30 [facility] Comment on above: Order Comment: Speci men Type: BLOOD SPECIMEN [facility] Address: [address] [place] [address] Performed By: #### 5 7021-8 #### [facility] CLIA [id number] [address] [place] [address] [place] Creatinine [Mass/Vol] 0.76 mg/dL Normal 0.58-0.96 [facility] Comment on above: Order Comment: Speci men Type: BLOOD SPECIMEN [facility] Address: [address] [place] [address] Performed By: #### 5 7021-8 #### [facility] CLIA [id number] [address] [place] [address] [place] Creatinine and Glomerular filtration rate.predicted panel (S/P/Bld) 93 mL/min/1.73m??? Normal >=60 [facility] Comment on above: Order Comment: Speci men Type: BLOOD SPECIMEN [facility] Address: [address] [place] [address] Result Comment: Rose Marie mated Glomerular Filtration Rate (eGFR) is calculated using the 2020 CKD-EPI creatinine equation. This equation utilizes serum creatinine, sex, and age as parameters. The creatinine assay has traceable calibration to isotope dilution-mass spectrometry. Refer to KDIGO guidelines for clinical interpretation. In patients with unstable renal function, e.g. those with acute kidney injury, the eGFR may not accurately reflect actual GFR. Performed By: #### 5 7021-8 #### [facility] CLIA [id number] [address] [place] [address] [place] Glucose [Mass/Vol] 138 mg/dL High 74-99 [facility] Comment on above: Order Comment: Dalila hemphill Type: BLOOD SPECIMEN [facility] Address: [address] [place] [address] Result Comment: The [place] Diabetes Association (ADA) provides guidance for cutoff values for fasting glucose and random glucose. The ADA defines fasting as no caloric intake for at least 8 hours. Fasting plasma glucose results between 100 to 125 mg/dL indicate increased risk for diabetes (prediabetes). Fasting plasma glucose results greater than or equal to 126 mg/dL meet the criteria for diagnosis of diabetes. In the absence of unequivocal hyperglycemia, results should be confirmed by repeat testing. In a patient with classic symptoms of hyperglycemia or hyperglycemic crisis, random plasma glucose results greater than or equal to 200 mg/dL meet the criteria for diagnosis of diabetes. Reference: Standards of Medical Care in Diabetes 2016, [place] Diabetes Association. Diabetes Care. 2016.39(Suppl 1). Performed By: #### 5 7021-8 #### [facility] CLIA [id number] [address] [place] [address] [place] Potassium [Moles/Vol] 4.3 mmol/L Normal 3.7-5.1 [facility] Comment on above: Order Comment: Dalila hemphill Type: BLOOD SPECIMEN [facility] Address: [address] [place] [address] Performed By: #### 5 7021-8 #### [facility] IA [id number] [address] [place] [address] [place] Protein [Mass/Vol] 7.3 g/dL Normal 6.3-8.0 [facility] Comment on above: Order Comment: Dalila hemphill Type: BLOOD SPECIMEN [facility] Address: [address] [place], [place] [address] Performed By: #### 5 7021-8 #### [facility] CLIA [id number] [address] [place] [address] [place] Sodium [Moles/Vol] 140 mmol/L Normal 136-144 [facility] Comment on above: Order Comment: Speci men Type: BLOOD SPECIMEN [facility] Address: [address] [place] [address] Performed By: #### 5 7021-8 #### [facility] CLIA [id number] [address] [place] [address] [place] Urea nitrogen [Mass/Vol] 13 mg/dL Normal 7-21 [facility] Comment on above: Order Comment: Speci men Type: BLOOD SPECIMEN [facility] Address: [address] [place] [address] Performed By: #### 5 7021-8 #### [facility] CLIA [id number] [address] [place] [address] [place] ECG COMPLETEon 09-12-2023 ECG COMPLETE Ventricular Rate : 5 7 BPM Atrial Rate : 57 BPM P-R Interval : 154 ms QRS Duration : 84 ms Q-T Interval : 444 ms QTC Calculation(Bazett) : 432 ms Calculated P North : 42 degrees Calculated R North : -2 degrees Calculated T North : 19 degrees SINUS BRADYCARDIA OTHERWISE NORMAL ECG Confirmed by DYLAN CHANG MD () on 09/24/2023 1:53:31 PM NAME : MARNIE ARANA PID : [id number] : 1970 Gender : Female Race : ORD : [id number] Procedure Date : Sep 12 2023 12:07:35 Edit Date : Sep 24 2023 13:54:47 Diagnosis: SINUS BRADYCARDIA OTHERWISE NORMAL ECG Confirmed by DYLAN CHANG MD (22) on 09/24/2023 1:53:31 PM Test Reason : Location : [facility] : [facility] Overread By : DYLAN CHANG MD Edited By : DYLAN CHANG MD Referred By : RAJA,JASIEL Acquired by : ANTONETTE RON Normal [facility] ECHOon 09-12-2023 Echocardiography Echocardiography Rep ort: Transthoracic Echo [facility] J1-5 Date of service: 09/12/2023 10:59:46 AM Ordering physician: JASIEL TURNER Indication: Pre-op non photography colorist: Clark Dhillon Fellow: Ronald Piña Interpreting physician: Carmen Doss MD PATIENT: Name: MARNIE ARANA : 1970 Age: 53 years Gender: F Primary rhythm: sinus. Height: 160.00 cm BSA: 2.02 m Weight: 92.08 kg BMI: 36.0 kg/m Heart rate 65 bpm Blood pressure 131/71 mmHg Technically difficult exam due to body habitus. Color Doppler was utilized to interrogate the cardiac valves assessed and spectral Doppler was utilized to determine the flow velocities and pressure gradients reported in this exam. Myocardial strain analysis was performed in this exam to aid in the assessment of cardiac function. MEASUREMENTS: Value Indexed Normal Max aortic dimension 3.6 cm Ao < 3.8 Left atrial volume 65 ml (biplane A-L) 32 ml/m Yolis <= 34 LV ID (diastole) 4.5 cm (2D) 2.22 cm/m LV ID (systole) 2.5 cm (2D) 1.24 cm/m IVS, leaflet tips 0.9 cm (2D) Posterior wall thickness 1.1 cm (2D) Left ventricular mass 153 g (2D) 76 g/m Global peak long strain -25.4 % LV end diastolic volume 67 ml (2D 4-ch.) 33.2 ml/m 29<=EDVi<62 LV end diastolic volume 66 ml (2D biplane) 32.7 ml/m 29<=EDVi<62 Ejection Fraction 65 % (visual est.) EF > 54 FINDINGS: LEFT VENTRICLE The left ventricle is normal in size. Left ventricular systolic function is normal. Global LV myocardial strain is normal. Normal left ventricular diastolic function. Mitral annular lateral E/e': 10.3. Mitral annular septal E/e': 16.3. Wall Motion: All scored segments are normal. RIGHT VENTRICLE The right ventricle is normal in size. Right ventricular systolic function is normal. RV systolic tissue Doppler velocity is 17.0 cm/s. Tricuspid annular displacement is 2.6 cm. Estimated right ventricular systolic pressure is not reported due to an insufficient tricuspid regurgitation signal. Estimated right atrial pressure is not included as the IVC was not seen. LEFT ATRIUM The left atrial cavity is normal in size. Pulmonary Veins: The pulmonary venous pattern showed normal systolic flow. RIGHT ATRIUM The right atrial cavity is normal in size. MITRAL VALVE There is mild (1+) mitral valve regurgitation. There is mild thickening. The pressure half time is 48 msec. The peak mitral E/A ratio is 1.28. The average mitral E/e' ratio is 13.3. The mitral flow deceleration time is 165 msec. TRICUSPID VALVE There is trace tricuspid valve regurgitation. There is no thickening. The hepatic venous pattern showed normal systolic flow. AORTIC VALVE There is mild (1+) aortic valve regurgitation. There is a centrally directed regurgitant jet originating centrally. Tricuspid aortic valve. There is mild thickening. The peak gradient is 12 mmHg (peak velocity = 170.0 cm/s). PULMONIC VALVE There is trace pulmonic valve regurgitation. There is no thickening. AORTA The visualized aorta is normal in size. Measurements - Sinus: 2.4 cm. Mid ascending aorta 3.6 cm. Mid arch 2.8 cm. PERICARDIUM There is an epicardial fat pad. CONCLUSIONS: - Technically difficult exam due to body habitus. - Exam indication: Pre-op non cardiac - The left ventricle is normal in size. Left ventricular systolic function is normal. EF = 65 5% (visual est.) - The right ventricle is normal in size. Right ventricular systolic function is normal. - The patient has not had a prior CC echocardiographic exam for comparison. * * * Final * * * CC [employer] Image : [id number] Normal [facility] PT panel Coag (PPP)on 2023 INR Coag (PPP) [Relative time] 1.0 {INR} Normal 0.9-1.3 [facility] Comment on above: Order Comment: Speci men Type: BLOOD SPECIMEN Ordering Facility: [facility] Address: [address] [place] [address] Result Comment: Crissy min K Antagonist (VKA) Therapeutic Range: INR 2 to 3 (Target INR of 2.5) Note: For patients treated with VKA drugs, such as warfarin, the [employer] [employer] 2012 Guideline recommends a therapeutic INR range of 2 to 3 (target INR of 2.5). This recommendation includes high-risk patients with antiphospholipid syndrome with previous arterial or venous thromboembolism, current-generation mechanical or bioprosthetic aortic heart valve replacement. Note: Patients with mechanical aortic valve replacement and additional risk factors for thromboembolic events (atrial fibrillation, previous thromboembolism, LV dysfunction, hypercoagulable conditions) or an older generation mechanical AVR (i.e., ball in-Cage) or any mechanical MVR should have a INR therapeutic range of 2.5 to 3.5 (target INR of 3). Nawaf ALONZO, et al. Chest 2012, 141:7S-47S Cynthia RA, et al. [facility] 2017, 70: 252-289 Performed By: #### 5 8410-2 #### [facility] CLIA [id number] [address] [place] [address] [place] PT Coag (PPP) [Time] 10.8 s Normal 9.7-13.0 [facility] Comment on above: Order Comment: Speci men Type: BLOOD SPECIMEN Ordering Facility: [facility] Address: [address] [place] [address] Performed By: #### 5 8410-2 #### [facility] CLIA [id number] [address] [place] [address] [place] STAPH AUREUS PCRon 4 S. aureus and MRSA panel DESMOND+probe (Nose) Normal Negative [facility] Comment on above: Order Comment: Speci men Type: BLOOD SPECIMEN Ordering Facility: [facility] Address: [address] [place] [address] Result Comment: Nega tive for Staphylococcus aureus by PCR. Negative for MRSA by PCR Performed By: #### 5 8410-2 #### [facility] CLIA [id number] [address] [place] [address] [place] TYPE AND SCREEN,30 DAYon ABO O Normal [facility] Comment on above: Order Comment: Speci men Type: BLOOD SPECIMEN Ordering Facility: [facility] Address: [address] [place] [address] Performed By: #### 5 8410-2 #### [facility] CLIA [id number] [address] [place] [address] [place] HISTORICAL AB SCR STATUS Negative Normal [facility] Comment on above: Order Comment: Speci men Type: BLOOD SPECIMEN Ordering Facility: [facility] Address: [address] [place] [address] Performed By: #### 5 8410-2 #### [facility] CLIA [id number] [address] [place] [address] [place] Rh Nom (Bld) Positive Normal [facility] Comment on above: Order Comment: Speci men Type: BLOOD SPECIMEN Ordering Facility: [facility] Address: [address] [place] [address] Performed By: #### 5 8410-2 #### [facility] CLIA [id number] [address] [place] [address] [place] URINALYSIS, DIPSTICK ONLYon 09-12-2023 Bilirubin Ql (U) Negative Normal Negative [facility] Comment on above: Order Comment: Speci men Type: URINE SPECIMEN Ordering Facility: [facility] Address: [address] [place] [address] Performed By: #### U A #### [facility] CLIA [id number] [address] [place] [address] [place] Clarity (Unsp spec) Clear Normal Clear [facility] Comment on above: Order Comment: Speci men Type: URINE SPECIMEN Ordering Facility: [facility] Address: [address] [place] [address] Performed By: #### U A #### [facility] CLIA [id number] [address] [id number] [place] Color (U) Yellow Normal Yellow [facility] Comment on above: Order Comment: Speci men Type: URINE SPECIMEN Ordering Facility: [facility] Address: [address] [place], [place] [address] Performed By: #### U A #### [facility] CLIA [id number] [address] [place], [place] [id number] [place] Glucose Test strip (U) [Mass/Vol] Negative Normal Negative [facility] Comment on above: Order Comment: Speci men Type: URINE SPECIMEN Ordering Facility: [facility] Address: [address] [place] [address] Performed By: #### U A #### [facility] CLIA [id number] [address] [place] [address] [place] Hemoglobin Ql (U) Negative Normal Negative [facility] Comment on above: Order Comment: Speci men Type: URINE SPECIMEN Ordering Facility: [facility] Address: [address] [place] [address] Performed By: #### U A #### [facility] CLIA [id number] [address] [place], [place] [address] [place] Ketones Ql (U) Negative Normal Negative [facility] Comment on above: Order Comment: Speci men Type: URINE SPECIMEN Ordering Facility: [facility] Address: [address] [place], [place] [address] Performed By: #### U A #### [facility] CLIA [id number] [address] [place], [place] [id number] [place] Leukocyte esterase Test strip Ql (U) Negative Normal Negative [facility] Comment on above: Order Comment: Speci men Type: URINE SPECIMEN Ordering Facility: [facility] Address: [address] [place], [place] [address] Performed By: #### U A #### [facility] CLIA [id number] [address] [place] [address] [place] Nitrite Ql (U) Negative Normal Negative [facility] Comment on above: Order Comment: Speci men Type: URINE SPECIMEN Ordering Facility: [facility] Address: [address] [place] [address] Performed By: #### U A #### [facility] CLIA [id number] [address] [place] [address] [place] pH (U) 7.0 [pH] Normal <8.5 [facility] Comment on above: Order Comment: Speci men Type: URINE SPECIMEN Ordering Facility: [facility] Address: [address] [place] [address] Performed By: #### U A #### [facility] CLIA [id number] [address] [place] [address] [place] Protein (U) [Mass/Vol] Negative Normal Negative [facility] Comment on above: Order Comment: Speci men Type: URINE SPECIMEN Ordering Facility: [facility] Address: [address] [place] [address] Performed By: #### U A #### [facility] CLIA [id number] [address] [place] [address] [place] Specific gravity (U) [Rel density] 1.014 Normal 1.005-1.030 [facility] Comment on above: Order Comment: Speci men Type: URINE SPECIMEN Ordering Facility: [facility] Address: [address] [place] [address] Performed By: #### U A #### [facility] CLIA [id number] [address] [place] [address] [place] Urobilinogen Ql (U) 0.2 EU/dL Normal 0.2-1.0 EU/dL [facility] Comment on above: Order Comment: Speci men Type: URINE SPECIMEN Ordering Facility: [facility] Address: [address] [place] [address] Performed By: #### U A #### [facility] CLIA [id number] [address] [place] [address] [place] XR CHEST 2V FRONTAL/LATon XR CHEST 2V FRONTAL/LAT * * *Final Report* * * DATE OF EXAM: Sep 12 2023 12:12PM JIX [id number] - XR CHEST 2V FRONTAL/LAT / PROCEDURE REASON: multiple diagnoses * * * * Physician Interpretation * * * * EXAMINATION: CHEST RADIOGRAPH (2 VIEW FRONTAL and LATERAL) CLINICAL HISTORY: Myasthenia gravis (HCC) Preoperative testing Pre-procedure lab exam MQ: XC2_6 EXAM DATE/TIME: 09/12/2023 12:12 PM COMPARISON: No relevant prior studies available. RESULT: Lines, tubes, and devices: None. Lungs and pleura: No consolidation. No lung mass. No pleural effusion. No pneumothorax. Cardiomediastinal silhouette: Normal cardiomediastinal silhouette. Bones and soft tissues: Unremarkable. IMPRESSION: No acute radiographic abnormality. Architecture Faculty Member: PSCB Transcribe Date/Time: Sep 12 2023 1:55P Dictated by : JOSEE COLLINS MD This examination was interpreted and the report reviewed and electronically signed by: JOSEE COLLINS MD on Sep 12 2023 1:55PM EST [id number] Normal [facility] XR Chest PA and Lateralon aPTT PPPon 09-12-2023 aPTT Coag (PPP) [Time] 27.3 s Normal 23.0-32.4 [facility] Comment on above: Order Comment: Speci men Type: BLOOD SPECIMEN Ordering Facility: [facility] Address: [address] [place] [address] Performed By: #### 5 8410-2 #### [facility] CLIA [id number] [address] [place] [address] [place] CNPNon 08-31-2023 CNPN Telephone ([facility]) ----- MARNIE ARANA ([id number]) 1970 F Date Time Provider Department 08/31/23 JASIEL TURNER During your visit today, we recorded the following information about you: Morenita Abebe 08/31/2023 12:14 PM Signed Received [facility] paperwork for patient. Paperwork given to Thoracic NPM for completion. After completion, paperwork is to be faxed to Attn: HR Kyle Martinez. Signed PHI release attached Unknown Dates: 08/06/23 Consult - Referring provider: Ana María Mckeon MD Diagnosis: Myasthenia gravis 09-12-23 Pre-Op 09-13-23 Surgery: ICD-10: G70.00 CPT: 07245 Kandi Matute, AGATHA 09/21/2023 1:34 PM Signed [facility] paperwork completed and returned to administrative specialist for disbursement Off duty 09/12/2023 RTW 10/16/2023 Kandi Price RN, BSN, [facility] Thoracic Nurse Practice Mgr Allergies As of Date: 08/31/2023 (No Known Allergies) Date Reviewed: 08/18/2023 Reviewed by: Roc Marrero MD - Fully Assessed Reason for Visit: [facility] Paperwork [4185] Prescriptions as of 09/21/2023 - acetaminophen (TYLENOL) 500 mg tablet Take 2 tablets by mouth every 6 hours for 7 days. - ibuprofen (MOTRIN) 600 mg tablet Take 1 tablet by mouth every 6 hours as needed for pain. - oxyCODONE IR (ROXICODONE) 5 mg immediate release tablet Take 1 tablet by mouth every 6 hours as needed for pain for up to 7 days. - polyethylene glycol 3350 17 gram packet Take 1 Packet by mouth once daily for 7 days. For prevention of postoperative opioid induced constipation.. Dissolve dose in 4 - 8 ounces of liquid and take as directed. - predniSONE (DELTASONE) 10 mg tablet Take 2 tablets by mouth once daily. - pyRIDostigmine bromide 30 mg tab Take 1 tablet by mouth four times daily. Problem List As Of Date 08/31/2023 Noted Resolved Multiple thyroid nodules [E04.2] 08/18/2023 Abnormal results of thyroid function studies [R*08/18/2023 Encounter Status:Closed by KANDI PRICE on 09/21/23 [facility] HNO ID: [id number] Author: SHOBHA HUNTLEY RT(R) Service: Radiology Author Type: Technologist Type: Allied Health Filed: 08/28/2023 10:50 Note Text: Radiology Service Progress Note DATE OF SERVICE: August 28, 2023 TIME: 10:29 AM PATIENT IDENTITY VERIFICATION COMPLETED USING TWO (2) STANDARD IDENTIFIERS: Name and Date of confirmed by patient verbally and Name and Date of confirmed by identification band. FALL SCREENING: Has the patient had 2 falls in the last year or 1 fall with injury or currently using an Ambulatory Assistive Device (Walker, Cane, Wheelchair, Crutches, etc.)? No PATIENT GENDER DATA: Female. status: : No status: NO. PATIENT RELEVANT IMPLANT DATA REVIEWED: Yes PATIENT PRESENTS WITH AN IMPLANTABLE OR ATTACHED SATELLITE TELEVISION INSTALLER: No ALLERGIES: Reviewed and unchanged CONTRAST ALLERGY: NO. EXAM: MRI - CONTRAST TYPE: GROUP II PERIPHERAL IV DATA: Ambulatory: A peripheral IV was started in the Right with a Angio cath: 24 gauge. RADIOLOGY DEPARTMENT: MR; Exam(s) Completed: Body: Liver (routine) SIGNATURE: RT Jonathan(R), RT Angelica(R) PATIENT NAME: Marnie Arana DATE: August 28, 2023 TIME: 10:29 AM Normal [facility] MR Liver WO and W contrast I Von 08-28-2023 MRI LIVER WO/W IVCONon 08-28 MRI LIVER WO/W IVCON * * *Final Report* * * DATE OF EXAM: Aug 28 2023 10:52AM [facility] 0727 - MRI LIVER WO/W IVCON / PROCEDURE REASON: multiple diagnoses * * * * Physician Interpretation * * * * MRI OF THE ABDOMEN WITHOUT AND WITH CONTRAST CLINICAL HISTORY: Mediastinal mass Lesion of liver . COMPARISON: None. TECHNIQUE: Magnet: 3.0T scanner. Multiplanar MRI of the abdomen with multiple sequences, including both pre- and post-contrast imaging, utilizing liver protocol Contrast: IV: 19 ml of Dotarem RESULT: Liver: 4 discrete cavernous hepatic hemangiomas are as follows: * 3.2 cm mass at segment 8 (7:12) * 1.3 cm mass in segment 4A (7:17) * 1.1 cm mass segment 5 * 0.9 cm mass in segment 8 (7:19) No hepatic metastasis. No MR findings of hepatic steatosis. No thrombus in the portal venous system (splenic vein, main portal vein, left and right anterior and right posterior portal vein branches). Spleen: No focal splenic lesions. Spleen is normal in size. Pancreas: Pancreas is normal in precontrast T1 signal intensity with no solid masses or main pancreatic duct dilatation. Biliary: No intrahepatic or extrahepatic biliary ductal dilation. Gallbladder: No cholelithiasis or gallbladder wall thickening. Kidneys: Kidneys enhance symmetrically without hydroureteronephrosis or enhancing renal masses. Adrenal glands: Adrenal glands are normal. Lymph nodes: No lymphadenopathy by size criteria. Mesentery: No ascites. Osseous structures: No aggressive osseous lesions. IMPRESSION: Four cavernous hepatic hemangiomas. No hepatic metastasis. Architecture Faculty Member: JAIME Transcribe Date/Time: Aug 28 2023 10:59A Dictated by : KUSUM DICK MD This examination was interpreted and the report reviewed and electronically signed by: KUSUM DICK MD on Aug 28 2023 11:22AM EST [id number] [facility] CNOVon 08-06-2023 CNOV Office Visit (TERESITA ) ----- MARNIE ARANA ([id number]) 1970 F Date Time Provider Department 08/06/23 8:00 AM JASIEL UTRNER During your visit today, we recorded the following information about you: Jasiel Turner MD 08/06/2023 2:05 PM Signed [facility] THORAC[facility] SURGERY OUTPATIENT CONSULT NOTE Marnie Arana [id number] Requesting Provider: Dr. 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 I have discussed a bilateral robotic approach for a total mediastinal thymectomy. Will have to check with her neurologist about the need for plasmapheresis pre-op given the absence of any motor weakness and a normal PFT. Plan: Robotic Thymectomy Echo SIGNATURE: Jasiel Turner MD PAGER: [phone] DATE of SERVICE: 08/06/2023 TIME of SERVICE: 930 AM HPI: Marnie Arana is a 53 year old White female referred by Dr. Dsouza for an opinion regarding management of thymoma. She is currently having double vision. (document at least 4 of these elements) Quality: stable Severity: moderate Timing: continuously Context: at rest and during activity ECOG Score: 0 Living arrangement: Lives with family/friend Functional status: Independent Unintentional weight loss over last 3 months: No PAST MEDICAL HISTORY Diagnosis Date Myasthenia gravis without exacerbation (HCC) PAST SURGICAL HISTORY Procedure Laterality Date ASPIRATE/INJECT GANGLION CYST(S) TOTAL ABDOM HYSTERECTOMY FAMILY HISTORY Problem Relation Age of Onset other (Meningioma) Mother Lymphoma Mother other (Type 2 Diabetes Mellitus) Father Social History Tobacco Use Smoking status: Never Passive exposure: Never Smokeless tobacco: Never Substance Use Topics Alcohol use: Yes Comment: Rarely Drug use: Never ALLERGIES No Known Allergies Asbestos Exposure No PHYSICAL EXAM There were no vitals taken for this visit. Neck: No masses Resp: Clear Cardiovascular: Regular rate AND rhythm GI: Soft Neurological/Psychiatric: Oriented to time, place AND person Additional relevant findings: none DATA: Radiology: CCT: IMPRESSION: * 4.8 cm lobulated anterior mediastinal mass, favored to reflect a thymoma in a patient with myasthenia gravis. Consider PET/CT to help delineate and exclude a possible thymic carcinoma. * Suspected hepatic hemangioma. MR abdomen may be considered for confirmatory assessment. * Multiple small subcentimeter thyroid nodules for which no additional evaluation is currently recommended. I have personally reviewed the following images/data: CT scan and Labs Outside Paper Medical Records Review personally performed by: MD Jasiel Reyes MD Referring Provider: SELF [200] Allergies As of Date: 08/06/2023 (No Known Allergies) Date Reviewed: 08/06/2023 Reviewed by: Marnie Ferrer, RN - Fully Assessed Primary Visit Diagnosis:Myasthenia gravis (HCC) [G70.00] Other Visit Diagnosis:Mediastinal mass [J98.59] Prescriptions as of 08/06/2023 - predniSONE (DELTASONE) 10 mg tablet Take 2 tablets by mouth once daily. - pyRIDostigmine bromide 30 mg tab Take 1 tablet by mouth four times daily. Problem List As Of Date: 08/06/2023 (None) Encounter Status:Closed by JASIEL TURNER on 08/06/23 [facility] MARNIE ARANA ([id number]) 1970 F Date Time Provider Department 07/24/23 JASIEL TURNER During your visit today, we recorded the following information about you: Kandi Menon 07/24/2023 4:48 PM Signed Confirmed dates and times of apts/ w patient via phone. Sent via AddThis [phone]. Patient has access to [employer]. PF 08/06/2023 at [facility] PFTs at: 7am/7:15am Consult w/ Dr. Turner at at 8am (per [facility] Kandi Strickland) 08/17/2023 at [facility] Consult Video TO ENDOCRINE SURGERY w/ Dr. Roc Marrero at 8am Per Rep Kannan Farris: Patient will have to have consult with ENDO MED provider before seeing ENDO SURG. Doctor (Dr. Qi Mann was initially requested by [facility] Kandi Strickland). Ji, 08/28/2023 at [facility] of the Liver at 10:20am Allergies As of Date: 07/24/2023 (No Known Allergies) Date Reviewed: 07/16/2023 Reviewed by: Peggy Larry OCCA - Fully Assessed Reason for Visit: Appointment Confirmation [6503] Prescriptions as of 07/24/2023 - predniSONE (DELTASONE) 10 mg tablet Take 2 tablets by mouth once daily. - pyRIDostigmine bromide 30 mg tab Take 1 tablet by mouth three times a day. Problem List As Of Date: 07/24/2023 (None) Encounter Status:Closed by KANDI MENON on 07/24/[address] [facility] [place] 07-23-2023 CNPN Telephone (NEVAMN) ----- MARNIE ARANA ([id number]) 1970 F Date Time Provider Department 07/23/23 DAVID DSOUZA [facility] During your visit today, we recorded the following information about you: Quinten Chery 07/23/2023 2:43 PM Signed Patient's kindergarten assistant Dr. Robin Bustos called to report increased severity of symptoms since 07/16/23 office visit (double vision, hanging eyelid). Would like to discuss with Dr. Dsouza or Dr. Ruiz Allergies As of Date: 07/23/2023 (No Known Allergies) Date Reviewed: 07/16/2023 Reviewed by: Peggy Larry OCCA - Fully Assessed Reason for Visit: Patient Update [1234] Prescriptions as of 07/23/2023 - predniSONE (DELTASONE) 10 mg tablet Take 1 tablet by mouth every afternoon. - pyRIDostigmine bromide 30 mg tab Take 1 tablet by mouth three times a day. Problem List As Of Date: 07/23/2023 (None) Encounter Status:Closed by DEVAUGHN SNEED on 07/23/23 Normal [facility] Telephone (EMGMN) ----- SUMITMARNIE LEVY ([id number]) 1970 F Date Time Provider Department 07/23/23 DAVID DSOUZA [facility] During your visit today, we recorded the following information about you: David Dsouza MD 07/23/2023 5:52 PM [facility] Phone Call On Sunday, she started noticing worsening vision changes. When looking straight forward, images seemed off. Did not develop any chewing, swallowing or breathing difficulties. 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 The patient's felt that the ptosis was very subtle and they did not notice it until her kindergarten assistant examined her eyes. She has been taking pyridostigmine 30mg TID consistently. Has not tried taking an extra dose. Has not yet heard back about thymectomy evaluation. Advised patient to increase prednisone to 20mg daily. Continue pyridostigmine 30mg TID. Advised her that she could take an extra dose of it during periods that she feels her vision is worse. [facility] will [facility] Dr. Ruiz. David Dsouza MD Neuromuscular Medicine Fellow Allergies As of Date: 07/23/2023 (No Known Allergies) Date Reviewed: 07/16/2023 Reviewed by: Peggy Larry OCCA - Fully Assessed Order(s):predniSONE (DELTASONE) 10 mg tabletTake 2 tablets by mouth once daily.Disp: 60 tabletRfl: 2 Prescriptions as of 07/23/2023 - predniSONE (DELTASONE) 10 mg tablet Take 2 tablets by mouth once daily. - pyRIDostigmine bromide 30 mg tab Take 1 tablet by mouth three times a day. Problem List As Of Date: 07/23/2023 (None) Prescriptions ordered this encounter Disp Refills Start End PREDNISONE 10 MG TABLET 60 t* 2 07/23/2023 10/21/2023 Route: ORAL Sig: Take 2 tablets by mouth once daily. Medications Discontinued During This Encounter Prescriptions - predniSONE (DELTASONE) 10 mg tablet (Discontinued) Take 1 tablet by mouth every afternoon. Encounter Status:Closed by DAVID DSOUZA on 07/23/23 Normal [facility] CNOVon 07-16-2023 CNOV Office Visit (NENMMN ) ----- MARNIE ARANA ([id number]) 1970 F Date Time Provider Department 07/16/23 1:00 PM DAVID DSOUZA NEVAMN During your visit today, we recorded the following information about you: Pulse Blood pressure Weight Height 77/minute 134/76 92.1 kg 1.6 m David Dsouza MD 07/17/2023 6:45 AM Addendum Neurological [facility] New Patient Visit Note Consultation requested by Dr. Claire De Los Santos for an opinion regarding myasthenia gravis. My final recommendations will be communicated back to the requesting physician by way of shared Medical record or letter to requesting physician via US mail. History of Present Illness: Debra Arana is a 53 year old right-handed female with no chronic medical problems presenting for evaluation of impaired vision. She was accompanied by her , who provided collateral information. Symptoms began on 05/2023. She noticed that in the evening, her phone screen appeared blurry. After ~1 week, she noticed intermittent double vision. Is characterized by images appearing to be stacked vertically on top of each other in the extreme directions of vision. She will sometimes see it when looking straight forward, but it is not prominent. Symptoms primarily occur in the afternoon around 3 PM. Denies ptosis, voice changes, extremity weakness, dysphagia or dyspnea. She has remained independent with her ADLs. She otherwise has not had any symptoms other than those listed above. Denies recent illnesses, previous transient neurologic symptoms, or sleep disturbances. She is up to date on all of her routine cancer screenings. Has lost ~15 lbs in the past few months, but has made changes to her diet in an effort to lose weight intentionally. She saw her rn child in a few days after the onset of double vision in May 2023. He diagnosed her with vertical heterophoria and was given prism glasses, which improved her vision significantly. As part of his workup, a CT of her brain orbits completed that showed a tortuous left optic nerve but no other abnormal findings. Serum testing was significant for positive acetylcholine receptor binding antibodies and she was referred to a neurologist. She was seen by Dr. Claire De Los Santos at [facility] and was diagnosed with myasthenia gravis. Was started on pyridostigmine 30mg TID and prednisone 10mg daily in June 2023. She had a CT scan of her chest completed that showed the presence of a possible thymomatous mass and she was then referred to for further evaluation. She has tolerated both of those medications without any side effects. She wears glasses almost constantly and because they helped her symptoms immediately, she is not sure if starting the medications have helped. Does not recall exactly when she last had double vision. MG - Activities of Daily Living (MG-ADL) 1. Talkin=Normal 2. Chewin=Normal 3. Swallowin=Normal 4. Breathin=Normal 5. Impairment of ability to brush teeth or comb hair: 0=None 6. Impairment of ability to arise from a chair: 0=None 7. Double vision: 0=None 8. Eyelid droop: 0=None MG-ADL Total Score: 0 History reviewed. No pertinent past medical history. PAST SURGICAL HISTORY Procedure Laterality Date ASPIRATE/INJECT GANGLION CYST(S) TOTAL ABDOM HYSTERECTOMY Medications: Current Outpatient Medications Medication Sig predniSONE (DELTASONE) 10 mg tablet Take 1 tablet by mouth every afternoon. pyRIDostigmine bromide 30 mg tab Take 1 tablet by mouth three times a day. No current facility-administered medications for this visit. Allergies: See updated allergies documented below. 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 EYES: No eye pain or orbital swelling reported. HEENT: No hearing changes or vertiginous symptoms indicated. No history of nose bleeds reported. RESPIRATORY: No reported cough, sputum, wheezing and dyspnea. CARDIOVASCULAR: Negative for significant chest pain, and palpitations per report. GI: Negative for significant abdominal discomfort, blood in stools or black stools reported. No recent reported change in bowel habits. : No reported history of incontinence. No dark/cola colored urine reported. MUSCLOSKELETAL: No history of significant joint pain or swelling, or myalgias reported. SKIN: Negative for pertinent lesions, rash, and itching per report. HEMATOLOGY/ONCOLOGY: Negative for reported prol (more content not included)... Normal [facility] ----- MARNIE ARANA ([id number]) 1970 F Date Time Provider Department 07/11/23 [facility] THORACIC SURG CONSULT THORMN During your visit today, we recorded the following information about you: Morenita Abebe 07/11/2023 2:50 PM Signed LOCAL PATIENT Received [facility] [employer] Staff Message from external referring pool Marnie Arana is being referred to Unspecified Thoracic Surgeon by SELF Phone: N/A Fax: Patient diagnosis/Reason for consult: Myasthenia gravis Referral triage process explained: No Patient will receive a call from Thoracic NPM after triage review with surgeon to discuss any additional testing and/or consults that will be scheduled. Pt will then receive a call from our scheduling office for scheduling. Please call pt at [phone]. Patient was informed consultation could be at [place] or [facility] [place]: No Patient Registration: Registration complete/updated: yes Insurance card(s) scanned in [employer] with in the past year: Yes: Date: Pt's [employer] is active. Ok to communicate to pt via [employer] not asked Medical Records: Records in [facility] (internal CC records): No Imaging in [facility] (internal CC records): No Care Everywhere - queried yes, downloaded Yes Linked [facility] Requested: no Date: N/A Outside Hospital(s) requested records from: [facility] ([facility]) Received: n/a Uploaded: N/A. Waiting on additional records: No. Missing (list): N/A OS Pathology Slides Requested: no Date: N/A Outside Hospital(s) slides requested from: no OS Radiology Imaging Requested: yes Date: 07-11-2023 Outside Hospital(s) requested imaging from: [facility]. Imaging will be received via Electronic Transfer Received: no Imaging uploaded: No Waiting on additional: No. Missing (list): CT Additional providers added to Care Teams: Yes Additional Notes/Comments: request faxed to [facility] file room at [phone] Enct routed to: Yes, Thoracic NPM for triage Kandi Matute RN 07/13/2023 2:56 PM Addendum Thoracic Surgery Consultation - review of records for appointment scheduling Received medical records from the office of SELF Phone: N/A Fax: Patient is being referred to Unspecified/First Available( reviewed with Jasiel Turner MD) by Self for Mediastinal mass /Thymoma Outside hospital records scanned / in epic / Care Everywhere Pathology: Procedures: Imaging . PET/CT: CT (chest 07/03/2023 [facility] * 4.8 cm lobulated anterior mediastinal mass, favored to reflect a thymoma in a patient with myasthenia gravis. Consider PET/CT to help delineate and exclude a possible thymic carcinoma. * Suspected hepatic hemangioma. MR abdomen may be considered for confirmatory assessment. * Multiple small subcentimeter thyroid nodules for which no additional evaluation is currently recommen CT [facility] No acute [facility]. CT [facility] Left optic nerve is larger and more tortuous than the opposite side and I cannot exclude optic nerve neuritis. MRI of the orbits without and with IV contrast recommended. Also consider contrast MRI of the brain using MS protocol. * Extraocular muscles appropriate and no imaging evidence for thyroid ophthalmopathy. MRI liver (interrogate liver lesion) UGI: n/a Labs 06/2023 [facility] Acteylcholine Receptor binding 12.1 Actelycholine Receptor 90 TSH 1.22 T3 3.47 T4 0.56 . Cardiopulmonary Testing . PFT's/Six: Requested Cardiac: none Office Notes/Consults Consult to endocrine surgery : Nawaf Mann MD Consult to neurology : Myasthenia Gravis management History of: No family history on file. No past medical history on file. No past surgical history on file. Films: imported Request PFT's consult to endocrine surgery Janusz Mann Consult to neurology : myasthenia gravis management MRI liver (liver lesion ) Consult to thoracic surgery with Dr. Yue Price RN, BSN, [facility] Thoracic Nurse Kandi Rodney RN 07/13/2023 5:02 PM Signed PT referred outside neurology Dr. De Los Santos Advanced neurology [place] Care Teams updated She is scheduled with Dr. Dsouza on 07/16/2023 All testing reviewed with patient along with thoracic surgery planning Kandi Price RN, BSN, [facility] Referring Provider: SELF [200] Allergies As of Date: 07/11/2023 (Not on File) Date Reviewed: Never Reviewed Reason for Visit: Consult [173] Cmt: Self referral Internal Referrals/resources [908] Primary Visit Diagnosis:Mediastinal mass [J98.59] Other Visit Diagnoses:Myasthenia gravis (HCC) [G70.00] Lesion of liver [K76.9] Multiple thyroid nodules [E04.2] Order(s):CONSULT TO ENDOCRINE SURGERY [[id number]] Order #: [id number]: 1 FUTURE CONSULT TO NEUROLOGY [9019] Order #: [id number]: 1 FUTURE MRI LIVER WO/W IVCON [[id number]] (more content not included)... Normal [facility] [place] 07-04-2023 [facility] Telephone (PODP) ----- MARNIE ARANA ([id number]) 1970 F Date Time Provider Department 07/04/23 NO PCP PODCCP During your visit today, we recorded the following information about you: Marielena Shaw 07/04/2023 10:18 AM Signed Reason for call: pt called and she would like to schedule an appt to co-ordinate with her neurology appt on Jul.She would like the thoracic appt to be in the morning Home and cell number:[phone] Diagnosis:myasthenia gravis. Marielena Ash Allergies As of Date: 07/04/2023 (Not on File) Date Reviewed: Never Reviewed Reason for Visit: Appointment [186] Problem List As Of Date: 07/04/2023 (None) Encounter Status:Closed by MARIELENA SHAW on 07/04/23 Normal [facility] Outside Colonoscopyon 2020 Outside Colonoscopy [id number]:12 7 [facility] Consent for Procedure/Surger yon 01-14-2021 Consent for Procedure/Surgery [id number]:12 7 [facility] Provider Letter FTon 01-14 Provider Letter [facility] January 14, 2021 Obdulio Monae DO [address] [place] [address] Re: MARNIE ARANA Date of : 1970 Thank you for your referral of Marnie Arana who was seen on consultation for screening colonoscopy. I have enclosed my consultation note for your review. I will be happy to follow Marnie. Sincerely, Odell Johnson MD General Surgery [facility] Ambulatory Clinical Summaryo n 01-13-2021 Ambulatory Clinical Summary {[id number] [facility] Immunization Recordson 01-13 Immunization Records [id number]:12 7 Normal [facility] Patient Educationon 01-14-20 Patient Education Colonoscopy A colonoscopy is an exam to evaluate your entire colon. In this exam, your colon is cleansed. A long fiberoptic tube is inserted through your rectum and into your colon. The fiberoptic scope (endoscope ) is a long bundle of enclosed and very flexible fibers. These fibers transmit light to the area examined and send images from that area to your caregiver. Discomfort is usually minimal. You may be given a drug to help you sleep (sedative ) during or prior to the procedure. This exam helps to detect lumps (tumors ), polyps, inflammation, and areas of bleeding. Your caregiver may also take a small piece of tissue (biopsy ) that will be examined under a microscope. LET YOUR CAREGIVER KNOW ABOUT: ? Allergies to food or medicine. ? Medicines taken, including vitamins, herbs, eyedrops, plan-wlm-epsqjuv medicines, and creams. ? Use of steroids (by mouth or creams). ? Previous problems with anesthetics or numbing medicines. ? History of bleeding problems or blood clots. ? Previous surgery. ? Other health problems, including diabetes and kidney problems. ? Possibility of , if this applies. BEFORE THE PROCEDURE ? A clear liquid diet may be required for 2 days before the exam. ? Ask your caregiver about changing or stopping your regular medications. ? Liquid injections (enemas ) or laxatives may be required. ? A large amount of electrolyte solution may be given to you to drink over a short period of time. This solution is used to clean out your colon. ? You should be present 60 minutes prior to your procedure or as directed by your caregiver. AFTER THE PROCEDURE ? If you received a sedative or pain relieving medication, you will need to arrange for someone to drive you home. ? Occasionally, there is a little blood passed with the first bowel movement. Do not be concerned. FINDING OUT THE RESULTS OF YOUR TEST Not all test results are available during your visit. If your test results are not back during the visit, make an appointment with your caregiver to find out the results. Do not assume everything is normal if you have not heard from your caregiver or the medical facility. It is important for you to follow up on all of your test results. HOME CARE INSTRUCTIONS ? It is not unusual to pass moderate amounts of gas and experience mild abdominal cramping following the procedure. This is due to air being used to inflate your colon during the exam. Walking or a warm pack on your belly (abdomen ) may help. ? You may resume all normal meals and activities after sedatives and medicines have worn off. ? Only take kmgx-lan-zpycnss or prescription medicines for pain, discomfort, or fever as directed by your caregiver. Do not use aspirin or blood thinners if a biopsy was taken. Consult your caregiver for medicine usage if biopsies were taken. SEEK IMMEDIATE MEDICAL CARE IF: ? You have a fever. ? You pass large blood clots or fill a toilet with blood following the procedure. This may also occur 10 to 14 days following the procedure. This is more likely if a biopsy was taken. ? You develop abdominal pain that keeps getting worse and cannot be relieved with medicine. Document Released: 06/22/2001 Document Revised: 09/16/2012 Document Reviewed: 02/04/2009 ExitCare? Patient Information ?2013 [employer]. Normal [facility] MG MAMM SCREEN 3D GLORIA CADon 01-06-2021 MG MAMM SCREEN 3D GLORIA CAD Patient: MARNIE ARANA Exam Date: 01/06/2021 : 1970 Gender:F Ordering : DR BHAVNA GOMEZ . Admission #: [id number] Family : Order #: [id number] CLICK HERE TO VIEW EXAM RADIOLOGY REPORT PROCEDURE: MAMMOGRAM SCREENING 3D BILATERAL CAD COMPARISON: MG MAMM SCREEN GLORIA W CAD, 12/19/2019. MG MAMM SCREEN GLORIA W CAD, 10/21/2018. INDICATIONS: Screening mammography Calculator Name NCI Breast Cancer Risk Assessment Tool 5 Year Breast Cancer Risk 1.50% Lifetime Breast Cancer Risk 11.80% Personal Breast Cancer No Personal Ovarian Cancer No Treatments None Family Cancers Mother with lymphoma cancer at age 50; Mother with meningioma cancer at age 60. LOCATION: [facility] BREAST COMPOSITION: Scattered areas fibroglandular density. FINDINGS: DIAGNOSTIC CATEGORY 1--NEGATIVE ASSESSMENT. RIGHT BREAST: No significant suspicious finding. No significant change has occurred. LEFT BREAST: No significant suspicious finding. No significant change has occurred. RECOMMENDATIONS: ROUTINE MAMMOGRAM AND CLINICAL EVALUATION IN 12 MONTHS. PLEASE NOTE: A NORMAL MAMMOGRAM DOES NOT EXCLUDE THE POSSIBILITY OF BREAST CANCER. A CLINICALLY SUSPICIOUS PALPABLE LUMP SHOULD BE BIOPSIED. Dictated by: Amari Crane M.D. on 01/06/2021 at 14:20 Approved by: Amari Crane M.D. on 01/06/2021 at 15:04 Normal [facility] XR DEXA BONE DENSITYon 01-06 XR DEXA BONE DENSITY EXAMINATION: XR DEX A BONE DENSITY HISTORY: Menopause present COMPARISON: DEXA bone densitometry 10/21/2018 TECHNIQUE: Dual-energy X-ray absorptiometry (DXA) was performed. FINDINGS: SPINE ANALYSIS: Average bone mineral density is 1.208 g/cm2. T-score (standard deviation relative to young adult mean): 0.2 . +1.7% change since prior study. HIP ANALYSIS: Lowest bone mineral density is within the left femoral neck, 0.946 g/cm2. T-score (standard deviation relative to young adult mean): -0.7 . +4.2% change since prior study. IMPRESSION: World Stephen Organization Classification: Normal - Low Fracture Risk Electronically authenticated by: AMARI CRANE Date: 2021-01-06 11:04 Normal [facility] Physician Referralon 021 Physician Referral [id number]:12 7 Normal [facility] PAP ACOG PANEL 2: 30 to 65on 12-10-2020 . . Normal [facility] Comment on above: Result Comment: Perf ormed at: WB Performed By: #### [id number] #### [facility] [address] [address] Andrewrainer Lemons Age Gdln ACOG Testing 30-65 Normal [facility] Comment on above: Performed By: #### [id number] #### [facility] [address] [place], [place] [address] Andrew Vesta DIAGNOSIS: Comment Normal [facility] Comment on above: Result Comment: NEGA TIVE FOR INTRAEPITHELIAL LESION OR MALIGNANCY. CELLULAR CHANGES ASSOCIATED WITH ATROPHY ARE PRESENT. Performed at: WB Performed By: #### [id number] #### [facility] [address] [id number] Andrew Lemons HPV Aptima Negative Normal Negative [facility] Comment on above: Result Comment: This nucleic acid amplification test detects fourteen high-risk HPV types (16,18,31,33,35,39,45,51,52,56,58,59,66,68) without differentiation. Performed at: =G Performed By: #### [id number] #### [facility] [address] [place], [place] [id number] Andrew Lemons Methodology: Comment Normal [facility] Comment on above: Result Comment: This liquid based ThinPrep(R) pap test was screened with the use of an image guided system. Performed at: WB Performed By: #### [id number] #### [facility] [address] [place] [address] Andrew Lemons Note: Comment Normal [facility] Comment on above: Result Comment: The Pap smear is a screening test designed to aid in the detection of premalignant and malignant conditions of the uterine cervix. It is not a diagnostic procedure and should not be used as the sole means of detecting cervical cancer. Both false-positive and false-negative reports do occur. . Performed at: WB Performed By: #### [id number] #### [facility] [address] [place] [address] Andrew Lemons Performed by: Comment Normal [facility] Comment on above: Result Comment: Namita Newby, Slurry Plant Operator (ASCP) Performed at: WB Performed By: #### [id number] #### [facility] [address] [place] [address] Andrew Lemons Specimen adequacy: Comment Normal [facility] Comment on above: Result Comment: Sati sfactory for evaluation. Performed at: WB Performed By: #### [id number] #### [facility] [address] [place], [place] [id number] Andrew Lemons Vital Signs Date Time Vital Sign Value Performing Clinician Facility 02-06-2024 11:25-0400 Body height 160 cm Quinten Ruiz MD Work Phone: 02-06-2024 11:25-0400 Body mass index (BMI) [Ratio] 39.64 kg/m2 Quinten Ruiz MD Work Phone: 02-06-2024 11:25-0400 Body weight 101.52 kg Qiunten Ruiz MD Work Phone: 02-06-2024 11:25-0400 Diastolic blood pressure 76 mm[Hg] Quinten Ruiz MD Work Phone: 02-06-2024 11:25-0400 Heart rate 63 /min Quinten Ruiz MD Work Phone: 02-06-2024 11:25-0400 SaO2% (BldA) [Mass fraction] 96 % Quinten Ruiz MD Work Phone: 02-06-2024 11:25-0400 Systolic blood pressure 141 mm[Hg] Quinten Ruiz MD Work Phone: 01-03-2024 13:41-0400 Body mass index (BMI) [Ratio] 40.89 kg/m2 Zeferino Desouza MD Work Phone: 01-03-2024 13:41-0400 Body temperature 97.59 [degF] Zeferino Desouza MD Work Phone: 01-03-2024 13:41-0400 Body weight 104.7 kg Zeferino Desouza MD Work Phone: 01-03-2024 13:41-0400 Diastolic blood pressure 71 mm[Hg] Zeferino Desouza MD Work Phone: 01-03-2024 13:41-0400 Heart rate 74 /min Zeferino Desouza MD Work Phone: 01-03-2024 13:41-0400 Respiratory rate 18 /min Zeferino Desouza MD Work Phone: 01-03-2024 13:41-0400 SaO2% (BldA) [Mass fraction] 96 % Zeferino Desouza MD Work Phone: 01-03-2024 13:41-0400 Systolic blood pressure 127 mm[Hg] Zeferino Desouza MD Work Phone: 11-28-2023 14:44-0400 Body mass index (BMI) [Ratio] 40.77 kg/m2 Zeferino Desouza MD Work Phone: 11-28-2023 14:44-0400 Body temperature 96.69 [degF] Zeferino Desouza MD Work Phone: 11-28-2023 14:44-0400 Body weight 104.4 kg Zeferino Desouza MD Work Phone: 11-28-2023 14:44-0400 Diastolic blood pressure 81 mm[Hg] Zeferino Desouza MD Work Phone: 11-28-2023 14:44-0400 Heart rate 64 /min Zeferino Desouza MD Work Phone: 11-28-2023 14:44-0400 Respiratory rate 18 /min Zeferino Desouza MD Work Phone: 11-28-2023 14:44-0400 SaO2% (BldA) [Mass fraction] 98 % Zeferino Desouza MD Work Phone: 11-28-2023 14:44-0400 Systolic blood pressure 128 mm[Hg] Zeferino Desouza MD Work Phone: 11-21-2023 14:51-0400 Body mass index (BMI) [Ratio] 40.42 kg/m2 Zeferino Desouza MD Work Phone: 11-21-2023 14:51-0400 Body temperature 97.2 [degF] Zeferino Desouza MD Work Phone: 11-21-2023 14:51-0400 Body weight 103.5 kg Zeferino Desouza MD Work Phone: 11-21-2023 14:51-0400 Diastolic blood pressure 84 mm[Hg] Zeferino Desouza MD Work Phone: 11-21-2023 14:51-0400 Heart rate 65 /min Zeferino Desouza MD Work Phone: 11-21-2023 14:51-0400 Respiratory rate 16 /min Zeferino Desouza MD Work Phone: 11-21-2023 14:51-0400 SaO2% (BldA) [Mass fraction] 97 % Zeferino Desouza MD Work Phone: 11-21-2023 14:51-0400 Systolic blood pressure 128 mm[Hg] Zeferino Desouza MD Work Phone: 11-14-2023 14:31-0400 Body mass index (BMI) [Ratio] 40.07 kg/m2 Zeferino Desouza MD Work Phone: 11-14-2023 14:31-0400 Body temperature 97 [degF] Zeferino Desouza MD Work Phone: 11-14-2023 14:31-0400 Body weight 102.6 kg Zeferino Desouza MD Work Phone: 11-14-2023 14:31-0400 Diastolic blood pressure 64 mm[Hg] Zeferino Desouza MD Work Phone: 11-14-2023 14:31-0400 Heart rate 69 /min Zeferino Desouza MD Work Phone: 11-14-2023 14:31-0400 Respiratory rate 16 /min Zeferino Desouza MD Work Phone: 11-14-2023 14:31-0400 SaO2% (BldA) [Mass fraction] 95 % Zeferino Desouza MD Work Phone: 11-14-2023 14:31-0400 Systolic blood pressure 134 mm[Hg] Zeferino Desouza MD Work Phone: 11-07-2023 14:54-0400 Body mass index (BMI) [Ratio] 40.07 kg/m2 Zeferino Desouza MD Work Phone: 11-07-2023 14:54-0400 Body temperature 97 [degF] Zeferino Desouza MD Work Phone: 11-07-2023 14:54-0400 Body weight 102.6 kg Zeferino Desouza MD Work Phone: 11-07-2023 14:54-0400 Diastolic blood pressure 69 mm[Hg] Zeferino Desouza MD Work Phone: 11-07-2023 14:54-0400 Heart rate 66 /min Zeferino Desouza MD Work Phone: 11-07-2023 14:54-0400 Respiratory rate 16 /min Zeferino Desouza MD Work Phone: 11-07-2023 14:54-0400 SaO2% (BldA) [Mass fraction] 98 % Zeferino Desouza MD Work Phone: 11-07-2023 14:54-0400 Systolic blood pressure 122 mm[Hg] Zeferino Desouza MD Work Phone: 10-31-2023 14:54-0400 Body mass index (BMI) [Ratio] 39.56 kg/m2 Zeferino Desouza MD Work Phone: 10-31-2023 14:54-0400 Body temperature 96.91 [degF] Zeferino Desouza MD Work Phone: 10-31-2023 14:54-0400 Body weight 101.3 kg Zeferino Desouza MD Work Phone: 10-31-2023 14:54-0400 Diastolic blood pressure 77 mm[Hg] Zeferino Desouza MD Work Phone: 10-31-2023 14:54-0400 Heart rate 65 /min Zeferino Desouza MD Work Phone: 10-31-2023 14:54-0400 Respiratory rate 16 /min Zeferino Desouza MD Work Phone: 10-31-2023 14:54-0400 SaO2% (BldA) [Mass fraction] 97 % Zeferino Desouza MD Work Phone: 10-31-2023 14:54-0400 Systolic blood pressure 115 mm[Hg] Zeferino Desouza MD Work Phone: 10-29-2023 16:08-0400 Body height 160 cm David Dsouza MD Work Phone: 10-29-2023 16:08-0400 Body mass index (BMI) [Ratio] 39.15 kg/m2 David Dsouza MD Work Phone: 10-29-2023 16:08-0400 Body weight 100.25 kg David Dsouza MD Work Phone: 10-29-2023 16:08-0400 Diastolic blood pressure 56 mm[Hg] David Dsouza MD Work Phone: 10-29-2023 16:08-0400 Heart rate 78 /min David Dsouza MD Work Phone: 10-29-2023 16:08-0400 SaO2% (BldA) [Mass fraction] 94 % David Dsouza MD Work Phone: 10-29-2023 16:08-0400 Systolic blood pressure 114 mm[Hg] David Dsouza MD Work Phone: 10-29-2023 13:57-0400 Body mass index (BMI) [Ratio] 38.84 kg/m2 Kandy Vallecillo APRN.BODY CARE MANAGER Work Phone: 10-29-2023 13:57-0400 Body temperature 98.01 [degF] Kandy Wegas LINE MAINTAINER SECTION.BODY CARE MANAGER Work Phone: 10-29-2023 13:57-0400 Body weight 100.25 kg Kandy Wegas LINE MAINTAINER SECTION.BODY CARE MANAGER Work Phone: 10-29-2023 13:57-0400 Diastolic blood pressure 77 mm[Hg] Kandy Wegas LINE MAINTAINER SECTION.BODY CARE MANAGER Work Phone: 10-29-2023 13:57-0400 Heart rate 93 /min Kandy Wegas LINE MAINTAINER SECTION.BODY CARE MANAGER Work Phone: 10-29-2023 13:57-0400 Respiratory rate 16 /min Kandy Wegas LINE MAINTAINER SECTION.BODY CARE MANAGER Work Phone: 10-29-2023 13:57-0400 SaO2% (BldA) [Mass fraction] 95 % Kandy Wegas LINE MAINTAINER SECTION.BODY CARE MANAGER Work Phone: 10-29-2023 13:57-0400 Systolic blood pressure 127 mm[Hg] Kandy Wegas LINE MAINTAINER SECTION.BODY CARE MANAGER Work Phone: 10-11-2023 12:57-0400 Body height 160.7 cm Zeferino Desouza MD Work Phone: 10-11-2023 12:57-0400 Body temperature 97.81 [degF] Zeferino Desouza MD Work Phone: 10-11-2023 12:57-0400 Body weight 97.6 kg Zeferino Desouza MD Work Phone: 10-11-2023 12:57-0400 Diastolic blood pressure 80 mm[Hg] Zeferino Desouza MD Work Phone: 10-11-2023 12:57-0400 Heart rate 87 /min Zeferino Desouza MD Work Phone: 10-11-2023 12:57-0400 Respiratory rate 18 /min Zeferino Desouza MD Work Phone: 10-11-2023 12:57-0400 SaO2% (BldA) [Mass fraction] 99 % Zeferino Desouza MD Work Phone: 10-11-2023 12:57-0400 Systolic blood pressure 141 mm[Hg] Zeferino Desouza MD Work Phone: 09-21-2023 14:51-0400 Body height 160 cm Kandy Wegas LINE MAINTAINER SECTION.BODY CARE MANAGER Work Phone: 09-21-2023 14:51-0400 Body temperature 98.01 [degF] Kandy Wegas LINE MAINTAINER SECTION.BODY CARE MANAGER Work Phone: 09-21-2023 14:51-0400 Body weight 95.94 kg Kandy Wegas LINE MAINTAINER SECTION.BODY CARE MANAGER Work Phone: 09-21-2023 14:51-0400 Diastolic blood pressure 83 mm[Hg] Kandy Wegas LINE MAINTAINER SECTION.BODY CARE MANAGER Work Phone: 09-21-2023 14:51-0400 Heart rate 67 /min Kandy Wegas LINE MAINTAINER SECTION.BODY CARE MANAGER Work Phone: 09-21-2023 14:51-0400 SaO2% (BldA) [Mass fraction] 97 % Kandy Wegas LINE MAINTAINER SECTION.BODY CARE MANAGER Work Phone: 09-21-2023 14:51-0400 Systolic blood pressure 152 mm[Hg] Kandy Wegas LINE MAINTAINER SECTION.BODY CARE MANAGER Work Phone: 09-12-2023 13:43-0500 Body height 160 cm Jasiel Turner MD Work Phone: 09-12-2023 13:43-0500 Body temperature 98.49 [degF] Jasiel Turner MD Work Phone: 09-12-2023 13:43-0500 Body weight 95.71 kg Jasiel Turner MD Work Phone: 09-12-2023 13:43-0500 Diastolic blood pressure 69 mm[Hg] Jasiel Turner MD Work Phone: 09-12-2023 13:43-0500 Heart rate 77 /min Jasiel Turner MD Work Phone: 09-12-2023 13:43-0500 Respiratory rate 14 /min Jasiel Turner MD Work Phone: 09-12-2023 13:43-0500 SaO2% (BldA) [Mass fraction] 96 % Jasiel Turner MD Work Phone: 09-12-2023 13:43-0500 Systolic blood pressure 142 mm[Hg] Jasiel Turner MD Work Phone: 09-05-2023 14:54-0500 Body height 165.1 cm Cristian Crespochter LINE MAINTAINER SECTION-BODY CARE MANAGER Work Phone: [facility] 09-05-2023 14:54-0500 Body mass index (BMI) [Ratio] 35.78 kg/m2 Cirstian Saraher LINE MAINTAINER SECTION-BODY CARE MANAGER Work Phone: [facility] 09-05-2023 14:54-0500 Body weight 97.52 kg Crsitian Reneericachter LINE MAINTAINER SECTION-BODY CARE MANAGER Work Phone: [facility] 09-05-2023 14:54-0500 Diastolic blood pressure 70 mm[Hg] Cristian Crespochter LINE MAINTAINER SECTION-BODY CARE MANAGER Work Phone: [facility] 09-05-2023 14:54-0500 Heart rate 64 /min Cristian Cheriechter LINE MAINTAINER SECTION-BODY CARE MANAGER Work Phone: [facility] 09-05-2023 14:54-0500 Respiratory rate 18 /min Cristian Cheriechter LINE MAINTAINER SECTION-BODY CARE MANAGER Work Phone: [facility] 09-05-2023 14:54-0500 SaO2% (BldA) [Mass fraction] 97 % Cristian Teixeira LINE MAINTAINER SECTION-BODY CARE MANAGER Work Phone: [facility] 09-05-2023 14:54-0500 Systolic blood pressure 124 mm[Hg] Cristian Teixeira LINE MAINTAINER SECTION-BODY CARE MANAGER Work Phone: [facility] Encounters Encounter Date Encounter Type Care Provider Facility Start: 03-03-2024 End: 03-03-2024 ambulatory [facility] Start: 02-06-2024 End: 02-06-2024 ambulatory QUINTEN RUIZ Facility:[facility] Start: 02-06-2024 End: 02-06-2024 Patient encounter procedure Quinten Ruiz MD Work Phone: Neurology Comment on above: Myasthenia gravis (H CC) (Primary Dx) Start: 01-22-2024 End: 01-22-2024 ambulatory CLAIRE DE LOS SANTOS Not Available Start: 01-03-2024 End: 01-03-2024 ambulatory ANA MARÍA MCKEON Facility:[facility] Start: 01-03-2024 End: 01-03-2024 Patient encounter procedure Zeferino Desouza MD Work Phone: Radiation Oncology Comment on above: Thymoma (Primary Dx) Start: 12-18-2023 Telephone encounter Dilcia Price RN Radiation Oncology Comment on above: Patient Update (Post Radiation Nurse Call ) Start: 11-30-2023 End: 11-30-2023 ambulatory ANA MARÍA MCKEON Facility:[facility] Start: 11-30-2023 Patient encounter procedure Zeferino Desouza MD Work Phone: Radiation Oncology Start: 11-30-2023 Radiation Oncology Note Zeferino guzman MD Work Phone: Radiation Oncology Comment on above: Completion Note Start: 11-29-2023 End: 11-29-2023 Refill Kandy Vallecillo APRN.BODY CARE MANAGER Work Phone: [facility] Start: 11-28-2023 End: 11-28-2023 Patient encounter procedure Zeferino Desouza MD Work Phone: Radiation Oncology Comment on above: Thymoma (Primary Dx) Start: 11-28-2023 End: 11-28-2023 ambulatory ANA MARÍA MCKEON Facility:[facility] Start: 11-27-2023 End: 11-27-2023 ambulatory ANA MARÍA MCKEON Facility:[facility] Start: 11-26-2023 End: 11-26-2023 ambulatory ANA MARÍA MCKEON Facility:[facility] Start: 11-23-2023 End: 11-23-2023 ambulatory ANA MARÍA MCKEON Facility:[facility] Start: 11-22-2023 End: 11-22-2023 ambulatory ANA MARÍA MCKEON Facility:[facility] Start: 11-21-2023 End: 11-21-2023 Patient encounter procedure Zeferino Desouza MD Work Phone: Radiation Oncology Comment on above: Thymoma (Primary Dx) Start: 11-21-2023 End: 11-21-2023 ambulatory ANA MARÍA MCKEON Facility:[facility] Start: 11-20-2023 End: 11-20-2023 ambulatory ANA MARÍA MCKEON Facility:[facility] Start: 11-19-2023 End: 11-19-2023 ambulatory ANA MARÍA MCKEON Facility:[facility] Start: 11-16-2023 End: 11-16-2023 ambulatory ANA MARÍA MCKEON Facility:[facility] Start: 11-15-2023 End: 11-15-2023 ambulatory ANA MARÍA MCKEON Facility:[facility] Start: 11-14-2023 End: 11-14-2023 Patient encounter procedure Zeferino Desouza MD Work Phone: Radiation Oncology Comment on above: Thymoma (Primary Dx) Start: 11-14-2023 End: 11-14-2023 ambulatory ANA MARÍA MCKEON Facility:[facility] Start: 11-13-2023 End: 11-13-2023 ambulatory ANA MARÍA MCKEON Facility:[facility] Start: 11-12-2023 End: 11-12-2023 ambulatory ANA MARÍA MCKEON Facility:[facility] Start: 11-09-2023 End: 11-09-2023 ambulatory ANA MARÍA MCKEON Facility:[facility] Start: 11-08-2023 End: 11-08-2023 ambulatory ANA MARÍA MCKEON Facility:[facility] Start: 11-07-2023 End: 11-07-2023 Patient encounter procedure Zeferino Desouza MD Work Phone: Radiation Oncology Comment on above: Thymoma (Primary Dx) Start: 11-07-2023 End: 11-07-2023 ambulatory ANA MARÍA HOOK YANETH Facility:[facility] Start: 11-06-2023 End: 11-06-2023 ambulatory [facility] YANETH Facility:[facility] Start: 11-05-2023 End: 11-05-2023 ambulatory [facility] YANETH Facility:[facility] Start: 11-02-2023 End: 11-02-2023 ambulatory [facility] Facility:[facility] Start: 11-01-2023 End: 11-01-2023 ambulatory [facility] Facility:[facility] Start: 10-31-2023 End: 10-31-2023 Patient encounter procedure Zeferino Desouza MD Work Phone: Radiation Oncology Comment on above: Thymoma (Primary Dx) Start: 10-31-2023 End: 10-31-2023 ambulatory ANA MARÍA EVGENY HOOK YANETH Facility:[facility] Start: 10-30-2023 End: 10-30-2023 ambulatory [facility] YANETH Facility:[facility] Start: 10-29-2023 End: 10-29-2023 Patient encounter procedure Kandy Vallecillo APRN.CNP Work Phone: Thoracic Clinic Comment on above: Malignant neoplasm o f thymus (HCC) (Primary Dx); Myasthenia gravis (HCC) Myasthenia gravis (H CC) (Primary Dx) Start: 10-29-2023 End: 10-29-2023 Subsequent hospital visit by physician Xr Chest Main J1 Work Phone: Radiology Comment on above: Myasthenia gravis (H CC) [G70.00] Start: 10-29-2023 End: 10-29-2023 ambulatory ANA MARÍA EPPPER MCKEON Facility:[facility] Start: 10-26-2023 End: 10-26-2023 ambulatory [facility] YANETH Facility:[facility] Start: 10-25-2023 End: 10-25-2023 ambulatory [facility] Facility:[facility] Start: 10-17-2023 Patient encounter procedure [facility] Provider [facility] Start: 10-16-2023 End: 10-16-2023 ambulatory ANA MARÍA MCKEON Facility:[facility] Start: 10-16-2023 End: 10-16-2023 Subsequent hospital visit by physician Arrival Time Radiology Work Phone: Radiology Pet CT Comment on above: Malignant neoplasm o f thymus (HCC) [C37] Start: 10-12-2023 End: 10-15-2023 ambulatory ANA MARÍA MCKEON Facility:[facility] Start: 10-12-2023 End: 10-12-2023 Subsequent hospital visit by physician Zeferino Desouza MD Work Phone: Radiology Pet CT Start: 10-12-2023 End: 10-15-2023 Patient encounter procedure Zeferino Desouza MD Work Phone: [place] Comment on above: Thymoma (Primary Dx) Start: 10-12-2023 Radiation Oncology Note Zeferino guzman MD Work Phone: Radiation Oncology Comment on above: Simulation Note Treatment Planning Start: 10-11-2023 End: 10-12-2023 ambulatory Marian Vines LPN Radiation Oncology Comment on above: Patient Education Start: 10-11-2023 End: 10-12-2023 Patient encounter procedure Zeferino Desouza MD Work Phone: Radiation Oncology Comment on above: Thymoma (Primary Dx) Start: 09-27-2023 End: 09-27-2023 Subsequent hospital visit by physician [facility] Stephania Radiology Comment on above: Multiple thyroid nod ules [E04.2] Start: 09-27-2023 End: 09-27-2023 ambulatory ANA MARÍA MCKEON Facility:[facility] Start: 09-26-2023 Telephone encounter Jasiel Turner MD Work Phone: Thoracic Clinic Comment on above: Return To Work Lette r Start: 09-21-2023 End: 09-21-2023 Patient encounter procedure Kandy Vallecillo APRN.BODY CARE MANAGER Work Phone: Thoracic Clinic Comment on above: Myasthenia gravis (H CC) (Primary Dx); Thymoma Start: 09-21-2023 End: 09-21-2023 ambulatory ANA MARÍA MCKEON Facility:[facility] Start: 09-21-2023 End: 09-21-2023 Subsequent hospital visit by physician Xr Chest Main J1 Work Phone: Radiology Comment on above: Follow-up examinatio n following surgery [Z09] Start: 09-21-2023 Telephone encounter Xiang Umana [facility] A16 Comment on above: Follow Up Phone Call (RC follow up call all clear. /) Start: 09-17-2023 Telephone encounter Barbara Umana NOC Comment on above: Follow Up Phone Call (RC f/u all clear/) Transition Of Care Start: 09-13-2023 Encounter for other preprocedural examination JASIEL [facility] Start: 09-13-2023 Encounter for preprocedural laboratory examination [facility] Start: 09-13-2023 End: 09-15-2023 Evaluation and management of inpatient CLAIRE DE LOS SANTOS Facility:[facility] Start: 09-12-2023 End: 09-12-2023 Admission to same day surgery center Anesthesia Clearance Work Phone: Work Phone: Start: 09-12-2023 End: 09-12-2023 ambulatory [facility] MCKEON Facility:[facility] Start: 09-12-2023 End: 09-12-2023 Patient encounter procedure Anesthesia Clearance Work Phone: Cardiothoracic Comment on above: Encounter for preope rative anesthesiology assessment for thoracic surgery (Primary Dx) Myasthenia gravis (H CC) (Primary Dx); Benign neoplasm of thymus Start: 09-12-2023 End: 09-12-2023 Patient encounter status Xr J1 Work Phone: Start: 09-12-2023 End: 09-12-2023 Subsequent hospital visit by physician Xr Chest Main J1 Work Phone: Radiology Comment on above: Myasthenia gravis (H CC) [G70.00] Start: 09-12-2023 End: 09-12-2023 ambulatory ANA MARÍA MCKEON Facility:[facility] Start: 09-05-2023 End: 09-05-2023 Patient encounter status [facility] LINE MAINTAINER SECTION-BODY CARE MANAGER Work Phone: [facility] citysocializer Work Phone: Start: 09-05-2023 End: 09-05-2023 Periodic preventive med est patient 40-64yrs Cristian [facility] LINE MAINTAINER SECTION-BODY CARE MANAGER Work Phone: [facility] Comment on above: Wellness examination (Primary Dx); Myasthenia gravis ([facility]) Start: 09-05-2023 End: 09-05-2023 ambulatory [facility] Start: 09-05-2023 Encounter for genera l adult medical examination without abnormal findings [facility] Start: 08-31-2023 Telephone encounter Jasiel Turner MD Work Phone: Thoracic Clinic Comment on above: FMLA Paperwork Start: 08-28-2023 ambulatory CLAIRE DE LOS SANTOS Facility:[facility] Start: 08-28-2023 End: 08-28-2023 Subsequent hospital visit by physician [facility] (Istat/3t) Work Phone: [facility] Radiology MRI Comment on above: Mediastinal mass [J9 8.59] Start: 08-24-2023 [facility] Jasiel Turner MD Work Phone: Thoracic Clinic Comment on above: Schedule Surgery (Ro botic b/l thymectomy ) Start: 08-24-2023 ambulatory Jasiel Turner MD Work Phone: [facility] Start: 08-24-2023 Patient encounter status Jasiel Turner MD Work Phone: Start: 08-17-2023 End: 08-17-2023 ambulatory CLAIRE DE LOS SANTOS Facility:[facility] Start: 08-06-2023 End: 08-06-2023 ambulatory CLAIRE DE LOS SANTOS Facility:[facility] Start: 07-16-2023 End: 07-16-2023 ambulatory CLAIRE DE LOS SANTOS Facility:[facility] Start: 05-25-2021 End: 05-26-2021 ambulatory AKILOH RODRIGUEZ Facility:[facility] Start: 01-19-2021 End: 01-19-[address] ODELL JOHNSON Facility:[facility] Start: 01-06-2021 End: 01-07-[address] BHAVNA GOMEZ Facility:[facility] Start: 12-07-2020 End: 12-07-[address] BHAVNA GOMEZ Facility:[facility] Procedures Date Procedure Procedure Detail Performing Clinician Start: 03-03-2024 Follow-up visit Follow-up CRISTIAN TEIXEIRA Start: 10-29-2023 Radiologic exam ches t 2 views Kandy Vallecillo APRN.CNP Work Phone: Start: 10-16-2023 Ct thorax w/contrast material Zeferino Desouza MD Work Phone: Start: 09-21-2023 Radiologic exam ches t 2 views Jasiel Turner MD Work Phone: Start: 09-12-2023 Antibody screen ANA MARÍA WOLFE Comment on above: Order Comment: Speci men Type: BLOOD SPECIMEN Ordering Facility: [facility] Address: [address] [place] [address] Performed By: #### 5 [id number] #### [facility] CLIA [id number] [address] [place] [address] [place] Start: 09-12-2023 Radiologic exam ches t 2 views Jasiel Turner MD Work Phone: Start: 08-28-2023 Mri abdomen w/o & w/contrast material Jasiel Turner MD Work Phone: Start: 05-30-2023 Mammography Toma schaffer RN Work Phone: Start: 01-19-2021 Colonoscopy Toma shcaffer RN Work Phone: Plan of Treatment Date Care Activity Detail Author Start: 01-19-2031 Screening for malign ant neoplasm [facility] Start: 09-14-2026 Diabetes Screening Diabetes Screenin g Start: 09-11-2026 Diabetes Screening Diabetes Screenin g Start: 06-02-2026 Diabetes Screening Diabetes Screenin g Start: 09-09-2024 End: 09-09-2024 Patient encounter procedure 09/09/2024 4:00 PM EST Office Visit [facility] [address] [place] [id number] Cristian Teixeira, LINE MAINTAINER SECTION-BODY CARE MANAGER [address] [place] [address] [facility] Start: 09-05-2024 Adult BMI Screening Adult BMI Screen ing [facility] Start: 09-05-2024 Tobacco Screening Tobacco Screening [facility] Start: 05-30-2024 Screening for malign ant neoplasm of breast Mammogram [facility] Start: 05-15-2024 End: 05-15-2024 Patient encounter procedure 05/15/2024 2:00 PM EST Office Visit Radiation Oncology [address] [place] [address] Zeferino Desouza MD [address] [place] [address] Followup Radiation Oncology Comment on above: Followup Start: 04-29-2024 End: 04-29-2024 Patient encounter procedure Radiology Comment on above: CT Malignant neoplasm o f thymus follow up / add on p er dr. ruiz Start: 03-09-2024 Covid-19 Vaccine ( season) Covid-19 Vaccine ( season) Start: 03-09-[address] [facility] Start: 03-03-2024 End: 03-03-2024 Patient encounter procedure 03/03/2024 3:45 PM EDT Office Visit [facility] [address] [place] [id number] Cristian Teixeira, LINE MAINTAINER SECTION-BODY CARE MANAGER [address] [place] [address] [facility] Start: 02-06-2024 End: 02-06-2024 Patient encounter procedure 02/06/2024 11:30 AM EDT Office Visit Neurology [address] [place] [address] Quinten Ruiz MD [address] [place] [address] f/u Neurology Comment on above: f/u Start: 01-03-2024 End: 01-03-2024 Patient encounter procedure 01/03/2024 2:00 PM EDT Office Visit Radiation Oncology [address] [place] [address] Zeferino Desouza MD [address] [place] [address] 6 week rv Radiation Oncology Comment on above: 6 week rv Start: 11-30-2023 End: 11-30-2023 Patient encounter procedure 11/30/2023 2:15 PM EDT Appointment Radiation Oncology [address] [place] [address] Mediastinum Radiation Oncology Comment on above: Mediastinum Start: 11-29-2023 End: 11-29-2023 Patient encounter procedure 11/29/2023 2:15 PM EDT Appointment Radiation Oncology [address] [place] [address] Mediastinum Radiation Oncology Comment on above: Mediastinum Start: 11-28-2023 End: 11-28-2023 Patient encounter procedure Radiation Oncology Comment on above: Mediastinum Location: [facility] Start: 11-27-2023 End: 11-27-2023 Patient encounter procedure 11/27/2023 2:15 PM EDT Appointment Radiation Oncology [address] [place] [address] Mediastinum Radiation Oncology Comment on above: Mediastinum Start: 11-26-2023 End: 11-26-2023 Patient encounter procedure 11/26/2023 2:15 PM EDT Appointment Radiation Oncology [address] [place] [address] Mediastinum Radiation Oncology Comment on above: Mediastinum Start: 11-23-2023 End: 11-23-2023 Patient encounter procedure 11/23/2023 2:15 PM EDT Appointment Radiation Oncology [address] [place] [address] Mediastinum Radiation Oncology Comment on above: Mediastinum Start: 11-22-2023 End: 11-22-2023 Patient encounter procedure 11/22/2023 2:15 PM EDT Appointment Radiation Oncology [address] [place] [address] Mediastinum Radiation Oncology Comment on above: Mediastinum Start: 11-21-2023 End: 11-21-2023 Patient encounter procedure Radiation Oncology Comment on above: Mediastinum Location: [facility] Start: 11-20-2023 End: 11-20-2023 Patient encounter procedure 11/20/2023 2:15 PM EDT Appointment Radiation Oncology [address] [place] [address] Mediastinum Radiation Oncology Comment on above: Mediastinum Start: 11-19-2023 End: 11-19-2023 Patient encounter procedure 11/19/2023 2:15 PM EDT Appointment Radiation Oncology [address] [place] [address] Mediastinum Radiation Oncology Comment on above: Mediastinum Start: 11-16-2023 End: 11-16-2023 Patient encounter procedure 11/16/2023 2:15 PM EDT Appointment Radiation Oncology [address] [place] [address] Mediastinum Radiation Oncology Comment on above: Mediastinum Start: 11-16-2023 End: 11-16-2023 Patient encounter procedure 11/16/2023 11:30 AM EDT Appointment Radiation Oncology [address] [place] [address] Mediastinum- this time for today per pt Radiation Oncology Comment on above: Mediastinum- this ti me for today per pt Start: 11-15-2023 End: 11-15-2023 Patient encounter procedure 11/15/2023 2:15 PM EDT Appointment Radiation Oncology [address] [place] [address] Mediastinum Radiation Oncology Comment on above: Mediastinum Start: 11-14-2023 End: 11-14-2023 Patient encounter procedure Radiation Oncology Comment on above: Mediastinum Location: [facility] Start: 11-13-2023 End: 11-13-2023 Patient encounter procedure 11/13/2023 2:15 PM EDT Appointment Radiation Oncology [address] [place] [address] Mediastinum Radiation Oncology Comment on above: Mediastinum Start: 11-12-2023 End: 11-12-2023 Patient encounter procedure 11/12/2023 2:15 PM EDT Appointment Radiation Oncology [address] [place] [address] Mediastinum Radiation Oncology Comment on above: Mediastinum Start: 11-09-2023 End: 11-09-2023 Patient encounter procedure 11/09/2023 1:45 PM EDT Appointment Radiation Oncology [address] [place] [address] Mediastinum Radiation Oncology Comment on above: Mediastinum Start: 11-08-2023 End: 11-08-2023 Patient encounter procedure 11/08/2023 2:15 PM EDT Appointment Radiation Oncology [address] [place] [address] Mediastinum Radiation Oncology Comment on above: Mediastinum Start: 11-07-2023 End: 11-07-2023 Patient encounter procedure Radiation Oncology Comment on above: Mediastinum Location: [facility] Start: 11-06-2023 End: 11-06-2023 Patient encounter procedure 11/06/2023 2:15 PM EDT Appointment Radiation Oncology [address] [place] [address] Mediastinum Radiation Oncology Comment on above: Mediastinum Start: 11-05-2023 End: 11-05-2023 Patient encounter procedure 11/05/2023 11:30 AM EDT Appointment Radiation Oncology [address] [place] [address] Mediastinum Radiation Oncology Comment on above: Mediastinum Start: 11-02-2023 End: 11-02-2023 Patient encounter procedure 11/02/2023 10:00 AM EDT Appointment Radiation Oncology [address] [place] [address] Mediastinum Radiation Oncology Comment on above: Mediastinum Start: 11-01-2023 End: 11-01-2023 Patient encounter procedure 11/01/2023 2:15 PM EDT Appointment Radiation Oncology [address] [place] [address] Mediastinum Radiation Oncology Comment on above: Mediastinum Start: 10-31-2023 End: 10-31-2023 Patient encounter procedure Radiation Oncology Comment on above: Mediastinum Location: [facility] Start: 10-30-2023 End: 10-30-2023 Patient encounter procedure 10/30/2023 2:15 PM EDT Appointment Radiation Oncology [address] [place] [address] Mediastinum Radiation Oncology Comment on above: Mediastinum Start: 09-12-2023 End: 12-12-2023 aPTT in Platelet poor plasma by Coagulation assay ACTIVATED PTT Lab STAT Myasthenia gravis (HCC) Preoperative testing Pre-procedure lab exam Expected: 09/12/2023, Expires: 12/12/2023 [facility] Work Phone: Comment on above: Expected: 09/12/2023 , Expires: 12/12/2023 Start: 09-12-2023 End: 12-12-2023 CBC W Auto Differential panel - Blood CBC + DIFF Lab STAT Myasthenia gravis (HCC) Preoperative testing Pre-procedure lab exam Expected: 09/12/2023, Expires: 12/12/2023 [facility] Work Phone: Comment on above: Expected: 09/12/2023 , Expires: 12/12/2023 Start: 09-12-2023 End: 12-12-2023 Comprehensive metabolic 2000 panel - Serum or Plasma COMP METABOLIC PANEL Lab STAT Myasthenia gravis (HCC) Preoperative testing Pre-procedure lab exam Expected: 09/12/2023, Expires: 12/12/2023 [facility] Work Phone: Comment on above: Expected: 09/12/2023 , Expires: 12/12/2023 Start: 09-12-2023 End: 12-12-2023 CONFIRM BLOOD TYPE CONFIRM BLOOD TYPE Blood Bank STAT Myasthenia gravis (HCC) Preoperative testing Pre-procedure lab exam Expected: 09/12/2023, Expires: 12/12/2023 [facility] Work Phone: Comment on above: Expected: 09/12/2023 , Expires: 12/12/2023 Start: 09-12-2023 End: 12-12-2023 PT panel - Platelet poor plasma by Coagulation assay PROTHROMBIN TIME/PT Lab STAT Myasthenia gravis (HCC) Preoperative testing Pre-procedure lab exam Expected: 09/12/2023, Expires: 12/12/2023 [facility] Work Phone: Comment on above: Expected: 09/12/2023 , Expires: 12/12/2023 Start: 09-12-2023 End: 12-12-2023 STAPH AUREUS PCR STAPH AUREUS PCR Lab STAT Myasthenia gravis (HCC) Preoperative testing Pre-procedure lab exam Expected: 09/12/2023, Expires: 12/12/2023 [facility] Work Phone: Comment on above: Expected: 09/12/2023 , Expires: 12/12/2023 Start: 09-12-2023 End: 12-12-2023 TYPE AND SCREEN,30 DAY TYPE AND SCREEN,30 DAY Blood Bank STAT Myasthenia gravis (HCC) Preoperative testing Pre-procedure lab exam Expected: 09/12/2023, Expires: 12/12/2023 [facility] Work Phone: Comment on above: Expected: 09/12/2023 , Expires: 12/12/2023 Start: 09-12-2023 End: 12-12-2023 URINALYSIS, DIPSTICK ONLY URINALYSIS, DIPSTICK ONLY Lab STAT Myasthenia gravis (HCC) Preoperative testing Pre-procedure lab exam Expected: 09/12/2023, Expires: 12/12/2023 [facility] Work Phone: Comment on above: Expected: 09/12/2023 , Expires: 12/12/2023 Start: 07-09-2023 Depression Assessment Depression Ass essment Start: 03-09-2023 Covid-19 Vaccine ( season) Covid-19 Vaccine ( season) Start: 03-09-2023 Influenza vaccination [facility] Start: 2018 Administration of varicella zoster vaccine Zoster (Shingles) Vaccine (1 of 2) [facility] Start: 2018 Shingrix Vaccine (1 of 2) Neal grix Vaccine (1 of 2) Start: 2013 Lipid panel Lipid Screening [facility] Start: 2013 Screening for malign ant neoplasm of colon Start: 2008 Screening for malign ant neoplasm of breast Start: 1998 Screening for malign ant neoplasm of cervix HPV Testing Start: 1989 Screening for malign ant neoplasm of cervix Start: 1987 DTaP,Tdap and Td Vac cines (1 - Tdap) DTaP,Tdap and Td Vaccines (1 - Tdap) [facility] Start: 1987 Hepatitis B Vaccine (1 of 3 - 19+ 3-dose series) Hepatitis B Vaccine (1 of 3 - 19+ 3-dose series) Start: 1987 Urine microalbumin profile DTa P,Tdap,Td Vaccine (1 - Tdap) Start: 1986 Adult BMI Follow Up Plan Adult BMI Follow Up Plan [facility] Start: 1986 Anxiety Screening Anxiety Screening Start: 1986 Depression Screening Depression Scre [facility] Start: 1986 Diabetic foot examination Diabetic F oot Exam [facility] Start: 1986 Hepatitis C screening Hepatitis C Sc reening Start: 1986 HIV screening HIV Screening [facility] Start: 1980 Depression Screening Depression Scre [facility] Start: 1968 Glaucoma screening Diabetic Op hthalmology Exam [facility] Start: 1968 Hepatitis B Vaccine (1 of 3 - 3-dose series) Hepatitis B Vaccine (1 of 3 - 3-dose series) End: 11-27-2024 CT Chest W contrast IV CT CHEST W IVCON Radiology Routine Malignant neoplasm of thymus (HCC) 1 Occurrences starting 10/29/2023 until 11/27/2024 [facility] Work Phone: Comment on above: 1 Occurrences starti ng 10/29/2023 until 11/27/2024 End: 08-24-2024 ECG COMPLETE ECG COMPLETE ECG STAT Myasthenia gravis (HCC) Preoperative testing Pre-procedure lab exam 1 Occurrences starting 08/24/2023 until 08/24/2024 [facility] Work Phone: Comment on above: 1 Occurrences starti ng 08/24/2023 until 08/24/2024 End: 08-24-2024 Echocardiography ECHO Cardiology Routine Myasthenia gravis (HCC) Preoperative testing Pre-procedure lab exam 1 Occurrences starting 08/24/2023 until 08/24/2024 [facility] Work Phone: Comment on above: 1 Occurrences starti ng 08/24/2023 until 08/24/2024 US Thyroid gland US THYROID/PARA THYROID Radiology Routine Multiple thyroid nodules 09/27/2023 10:48 AM EDT [facility] Work Phone: End: 09-22-2024 XR Chest PA and Lateral XR CHEST 2V FRONTAL/LAT Radiology STAT Myasthenia gravis (HCC) Preoperative testing Pre-procedure lab exam 1 Occurrences starting 08/24/2023 until 09/22/2024 [facility] Work Phone: Comment on above: 1 Occurrences starti ng 08/24/2023 until 09/22/2024 End: 10-20-2024 XR Chest PA and Lateral XR CHEST 2V FRONTAL/LAT Radiology Routine Myasthenia gravis (HCC) Thymoma 1 Occurrences starting 09/21/2023 until 10/20/2024 [facility] Work Phone: Comment on above: 1 Occurrences starti ng 09/21/2023 until 10/20/2024 [facility] Immunizations Immunization Date Immunization Notes Care Provider Fa francisco 04-14-2022 Seasonal, quadrivalent, recombinant, injectable influenza vaccine, preservative free Zeferino Desouza MD Work Phone: 04-14-2022 influenza virus vaccine, unspecified formulation Jasiel Turner MD Work Phone: 05-13-2019 Influenza, injectabl e, Madin [place] Canine Kidney, preservative free, quadrivalent Cristian Reneericadestiney LINE MAINTAINER SECTION-BODY CARE MANAGER Work Phone: [facility] Payers Date Payer Category Payer Unknown [id number] 1970 Unknown [id number] 1970 Unknown [id number] [id number] [id number] 1968 Unknown [id number] [id number] [id number] 1968 Unknown [id number] 2.16.84 [id number] 1970 Unknown [id number] 2.16.8 [id number] 1970 Unknown [id number] 2.16.8 [id number] 1961 Self-pay 1961 Unknown [id number] Unknown [id number] Social History Date Type Detail Facility Start: 06-06-2023 End: 07-16-2023 Tobacco smoking status NHIS Never smoked tobacco Start: 06-06-2023 End: 07-16-2023 Tobacco use and exposure Smokeless tobacco non-user Start: 08-06-2023 End: 10-11-2023 Alcohol intake Current drinker of alcohol (finding) Start: 07-16-2023 End: 08-06-2023 History of Social function Start: 07-16-2023 End: 08-06-2023 Tobacco use panel Adult Depression Screening Assessment 0 Start: 07-16-2023 [facility] Start: 1970 Sex Assigned At Female C [facility] Start: 07-04-2023 Gender identity Identifies as female gender (finding) Start: 07-04-2023 Sexual orientation Heterosexual (fin ding) Start: 09-05-2023 Alcohol intake Current non-dr valve steamer of alcohol (finding) [facility] Start: 1970 Sex Assigned At Not on file P [facility] NEGATED: Highlighted rowStart: NINF History of tobacco use Passive smoker Clinical Notes 01-13-2021 to 02-06-2024 Patient InstructionsClQuinten magallon MD - 02/06/2024 11:30 AM Zeferino Morrison MD - 01/03/2024 2:00 PM EDTTelephone Encounter - Zeferino Desouza MD - 12/18/2023 10:40 AM EDTPatient Instructions Note Date & Type Note Facility 02-06-2024 Instructions Quinten Ruiz MD - 02/06/2024 11:57 AM EDT Our plan: Continue the pyridostigmine Aug 1: go down on prednisone to 7.5 mg per day x 1 month After a month if symptoms are still well controlled go down to 5 mg per day until your follow up with me (apr 29) Let me know when you need a refill on the prednisone and I can update the prescription for 5 mg tablets through [facility] Continue vitamin D while on steroids documented in this encounter 02-06-2024 History of Present illness Narrative I [facility] in follow up for thymomatous seropositive MG (ocular). HPI: Ms. 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 At that visit was undergoing radiation for thymoma. Ocular MG symptoms very well controlled so weaned prednisone down to 10 mg/day. Since their last visit: Prednisone adriana reduced to 10 mg/day Finished radiation! Going to be monitoring tymoma with CT scans. Regarding her MG symptoms her vision has been basically normal. She only used mestinon once in the morning. Hasn't needed a second mestinon dose in a long time. No double vision or blurry vision. No needing prisms any more. No eyelid ptosis. No other symptoms of MG. Does have some dyspepsia. Weight is down. 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 ROS: Pertinent positive and negative systems reviewed in HPI. Medications: Current Outpatient Medications Medication Sig ibuprofen (MOTRIN) 600 mg tablet Take 1 tablet by mouth every 6 hours as needed for pain. predniSONE (DELTASONE) 10 mg tablet Take 1.5 tablets by mouth once daily. cholecalciferol, vitamin D3, (VITAMIN D3 ORAL) Take by mouth once daily. pyRIDostigmine bromide 30 mg tab Take 1 tablet by mouth four times daily. No current facility-administered medications for this visit. Allergies: ALLERGIES No Known Allergies Exam: 02/06/24 1125 BP: 141/76 BP Site: Right Arm BP Position: Sitting BP Cuff Size: Regular Adult Pulse: 63 SpO2: 96% Weight: 101.5 kg (223 lb 12.8 oz) Height: 160 cm (5' 3 ) Gen: appears stated age, no acute distress Neuro: MS: awake, alert, oriented to detailed history. Language fluent. Cranial nerves: No ocular misalingment on cross cover. EOMI. No eye closure weakness. Lower facial muscles and tongue strong. No dysarthria. Head flexion full strength. Motor: Muscle bulk and tone normal. Strength proximally and distally in all four extremities was 5/5. Coordination: No evidence of ataxia Gait: Casual gait normal. 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 Neurologic exam is normal so would classify currently as pharmacologic remission. Will continue slow steroid taper and monitor for any symptom recurrence. Plan: Reduce prednisone to 7.5 mg x 1 month Then reduce prednisone to 5 mg until follow up (refills through [facility]) Continue pyridostigmine PRN Continue vitamin D RV in 2-3 months Quinten Ruiz MD [facility] [address] [place], [place] [id number] I spent a total of 30 minutes on the date of the service which included preparing to see the patient, [id number] patient care, completing clinical documentation, obtaining and/or reviewing separately obtained history, performing a medically appropriate examination, counseling and educating the patient/family/caregiver, and ordering medications, tests, or procedures. Answers submitted by the patient for this visit: Activities of Daily Living (MG-ADL) (Submitted on 01/30/2024) Talkin=Normal Chewin=Normal Swallowin=Normal Breathin=Normal Impairment of ability to brush teeth or comb hair: 0=None Impairment of ability to rise from a chair: 0=None Double vision: 1=Occurs, but not daily Eyelid droop: 0=None documented in this encounter 02-06-2024 Note HNO ID: [id number] Author: QUINTEN RUIZ MD Service: ? Author Type: Physician Type: Progress Notes Filed: 02/08/2024 09:57 Note Text: I [facility]24 in follow up for thymomatous seropositive MG (ocular). HPI: Ms. 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 At that visit was undergoing radiation for thymoma. Ocular MG symptoms very well controlled so weaned prednisone down to 10 mg/day. Since their last visit: Prednisone adriana reduced to 10 mg/day Finished radiation! Going to be monitoring tymoma with CT scans. Regarding her MG symptoms her vision has been basically normal. She only used mestinon once in the morning. Hasn't needed a second mestinon dose in a long time. No double vision or blurry vision. No needing prisms any more. No eyelid ptosis. No other symptoms of MG. Does have some dyspepsia. Weight is down. 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 ROS: Pertinent positive and negative systems reviewed in HPI. Medications: Current Outpatient Medications Medication Sig ibuprofen (MOTRIN) 600 mg tablet Take 1 tablet by mouth every 6 hours as needed for pain. predniSONE (DELTASONE) 10 mg tablet Take 1.5 tablets by mouth once daily. cholecalciferol, vitamin D3, (VITAMIN D3 ORAL) Take by mouth once daily. pyRIDostigmine bromide 30 mg tab Take 1 tablet by mouth four times daily. No current facility-administered medications for this visit. Allergies: ALLERGIES No Known Allergies Exam: 02/06/24 1125 BP: 141/76 BP Site: Right Arm BP Position: Sitting BP Cuff Size: Regular Adult Pulse: 63 SpO2: 96% Weight: 101.5 kg (223 lb 12.8 oz) Height: 160 cm (5' 3 ) Gen: appears stated age, no acute distress Neuro: MS: awake, alert, oriented to detailed history. Language fluent. Cranial nerves: No ocular misalingment on cross cover. EOMI. No eye closure weakness. Lower facial muscles and tongue strong. No dysarthria. Head flexion full strength. Motor: Muscle bulk and tone normal. Strength proximally and distally in all four extremities was 5/5. Coordination: No evidence of ataxia Gait: Casual gait normal. 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 Neurologic exam is normal so would classify currently as pharmacologic remission. Will continue slow steroid taper and monitor for any symptom recurrence. Plan: Reduce prednisone to 7.5 mg x 1 month Then reduce prednisone to 5 mg until follow up (refills through [facility]) Continue pyridostigmine PRN Continue vitamin D RV in 2-3 months Quinten Ruiz MD [facility] [address] [place] [address] I spent a total of 30 minutes on the date of the service which included preparing to see the patient, [id number] patient care, completing clinical documentation, obtaining and/or reviewing separately obtained history, performing a medically appropriate examination, counseling and educating the patient/family/caregiver, and ordering medications, tests, or procedures. Answers submitted by the patient for this visit: Activities of Daily Living (MG-ADL) (Submitted on 01/30/2024) Talkin=Normal Chewin=Normal Swallowin=Normal Breathin=Normal Impairment of ability to brush teeth or comb hair: 0=None Impairment of ability to rise from a chair: 0=None Double vision: 1=Occurs, but not daily Eyelid droop: 0=None [facility] 01-03-2024 History of Present illness Narrative Radiation Oncology - Follow Up Note PATIENT NAME: Marnie Arana PATIENT DIAGNOSIS/PATIENT IDENTIFICATION: Ms. Arana is a 53-year-old woman diagnosed with Stage I, [id number] (AJCC)/Stage IIa ([place]) thymoma (Type AB) status post bilateral robotic-assisted VATS total thymectomy on 09/13/[address] Turner. 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 Tumor was noted to be present at the anterior and posterior margins of the specimen (R1). She completed a course of post-operative radiation therapy to the post-operative bed/chest on 11/30/2023 (5400 cGy delivered in 27 fractions). Ms. Arana returns to clinic today for routine follow-up approximately one month after the completion of her radiation treatments. In the interim, Signed by: Zeferino Desouza MD This document has been created with the use of voice recognition technology. It may contain inaccuracies, misspellings, inaccurate syntax or inappropriate word context that are a result of the inadequacies/shortcomings of said technology/software. documented in this encounter 01-03-2024 Note HNO ID: [id number] Author: ZEFERINO DESOUZA MD Service: ? Author Type: Physician Type: Progress Notes Filed: 01/15/2024 05:38 Note Text: Radiation Oncology - Follow Up Note PATIENT NAME: Marnie Arana PATIENT DIAGNOSIS/PATIENT IDENTIFICATION: Ms. Arana is a 53-year-old woman diagnosed with Stage I, [id number] (AJCC)/Stage IIa ([place]) thymoma (Type AB) status post bilateral robotic-assisted VATS total thymectomy on 09/13/[address] Turner. 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 Tumor was noted to be present at the anterior and posterior margins of the specimen (R1). She completed a course of post-operative radiation therapy to the post-operative bed/chest on 11/30/2023 (5400 cGy delivered in 27 fractions). Ms. Arana returns to clinic today for routine follow-up approximately one month after the completion of her radiation treatments. In the interim, she continues to do well and denies any pain/discomfort in the neck/upper chest and reports no skin issues or sore throat and is able to swallow well. She reports no change in her breathing and has developed no cough and has intact voice. She does endorse good energy good appetite and hydration and stable weight. She continues to work on her vision issues with her neurology team and continues on pyridostigmine and is being weaned off her prednisone. Ms. Arana well approximately 1 month out with no new issues related to her radiation treatment to the chest. She is scheduled for initial posttreatment imaging with CT of the chest on 04/29/2024 and has follow-up with her thoracic surgery team to review results. I will plan to see her back in approximately 4 months for follow-up. The patient is aware to contact the clinic in the interim should any questions or concerns arise. Thank you for allowing us to participate in the care of this patient. Signed by: Zeferino Desouza MD This document has been created with the use of voice recognition technology. It may contain inaccuracies, misspellings, inaccurate syntax or inappropriate word context that are a result of the inadequacies/shortcomings of said technology/software. [facility] 12-18-2023 Telephone encounter Note Thanks! Zeferino Work Phone: 12-18-2023 Miscellaneous Notes Thanks! Zeferino Call placed to pt to check status post XRT. Pt states overall she is doing great. She has had no issues at all after treatment. She states I feel so good, it makes me wonder if it worked. She is currently on vacation and doing well. She will see Dr Desouza as scheduled on 01/02. Dilcia Price, RN documented in this encounter 12-18-2023 Telephone encounter Note Call placed to pt to check status post XRT. Pt states overall she is doing great. She has had no issues at all after treatment. She states I feel so good, it makes me wonder if it worked. She is currently on vacation and doing well. She will see Dr Desouza as scheduled on 01/02. Dilcia Price, RN 11-30-2023 History of Present illness Narrative [facility] Radiation Oncology Department RADIATION ONCOLOGY - COMPLETION NOTE PATIENT: MARNIE ARANA: 1970 DATES OF TREATMENT: 10/25/23 - 11/30/23 DIAGNOSIS: Ms. Arana is a 53-year-old woman diagnosed with Stage I, [id number] (AJCC)/Stage IIa ([place]) thymoma (Type AB) status post bilateral robotic-assisted VATS total thymectomy on 09/13/[address] Turner. 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 Tumor was noted to be present at the anterior and posterior margins of the specimen (R1). AREA TREATED: Upper Mediastinum/Post-op Bed DELIVERED DOSE: 5,400 cGy in 27 fractions, 2 ARCS, VMAT, 6 MV with daily CBCT guidance TOTAL: 5,400 cGy delivered in 27 fractions ELAPSED TIME: 36 days. CLINICAL SUMMARY: The patient tolerated course of post-operative radiation therapy with mild fatigue as expected and no other significant issues. The patient was able to complete treatment as intended without break interruption or modification of prescription plan. The patient will be evaluated in 3-4 weeks for postradiation follow-up and will follow with the thoracic surgery team for continued evaluation/imaging as well as with her neurology/ophthalmology team for treatment of her vision issues. . Staff Physician Zeferino Desouza M.D. / ALEXUS 45:45 AM Electronically Signed cc: Jasiel Turner MD ([facility]) Kandy Vallecillo APRN.CNP ([facility]) Quinten Ruiz MD ([facility]) David Dsouza MD (CC) Ana María Mckeon MD [address] [facility] [address] [address] documented in this encounter 11-30-2023 Note HNO ID: [id number] Author: ZEFERINO DESOUZA MD Service: ? Author Type: Physician Type: Progress Notes Filed: 12/13/2023 05:45 Note Text: [facility] Radiation Oncology Department RADIATION ONCOLOGY - COMPLETION NOTE PATIENT: MARNIE ARANA: 1970 DATES OF TREATMENT: 10/25/23 - 11/30/23 DIAGNOSIS: Ms. Arana is a 53-year-old woman diagnosed with Stage I, [id number] (AJCC)/Stage IIa ([place]) thymoma (Type AB) status post bilateral robotic-assisted VATS total thymectomy on 09/13/[address] Turner. 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 Tumor was noted to be present at the anterior and posterior margins of the specimen (R1). AREA TREATED: Upper Mediastinum/Post-op Bed DELIVERED DOSE: 5,400 cGy in 27 fractions, 2 ARCS, VMAT, 6 MV with daily CBCT guidance TOTAL: 5,400 cGy delivered in 27 fractions ELAPSED TIME: 36 days. CLINICAL SUMMARY: The patient tolerated course of post-operative radiation therapy with mild fatigue as expected and no other significant issues. The patient was able to complete treatment as intended without break interruption or modification of prescription plan. The patient will be evaluated in 3-4 weeks for postradiation follow-up and will follow with the thoracic surgery team for continued evaluation/imaging as well as with her neurology/ophthalmology team for treatment of her vision issues. . Staff Physician Zeferino Desouza M.D. / ALEXUS 45:45 AM Electronically Signed cc: aJsiel Turner MD ([facility]) Kandy Vallecillo APRN.CNP ([facility]) Quinten Ruiz MD ([facility]) David Dsouza MD ([facility]) Ana María Mckeon MD [address] [facility] [id number] [address] [facility] 11-28-2023 Note HNO ID: [id number] Author: ZEFERINO DESOUZA MD Service: ? Author Type: Physician Type: Progress Notes Filed: 12/03/2023 19:53 Note Text: Radiation Oncology - On Treatment Review (OTR) Note PATIENT NAME: Marnie Arana PATIENT DIAGNOSIS: Ms. Arana is a 53-year-old woman diagnosed with Stage I, [id number] (AJCC)/Stage IIa ([place]) thymoma (Type AB) status post bilateral robotic-assisted VATS total thymectomy on 09/13/[address] Turner. 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 Tumor was noted to be present at the anterior and posterior margins of the specimen (R1). PROTOCOL: no COURSE: post-operative Current dose: 5000 cGy in 25 fx Planned dose: 5400 cGy in 27 fx SUBJECTIVE: Tolerating XRT well and denies any pain/discomfort in the upper chest or neck and reports no skin irritation or breakdown and reports swallowing well without issues. She has no change in her breathing and reports no cough or voice changes. She endorses good energy as she continues to work good appetite and hydration and stable weight. She has been working with her neurology team and reports improvement in her vision after adjusting her medications. PHYSICAL EXAM: Area Assessed: Chest KPS: 90 General Appearance: Alert and oriented. No acute distress. Chest: No respiratory distress. IMAGING/LAB RESULTS: None TOXICITY ASSESSMENT (CTC v4.0): Fatigue: grade 0 - No symptoms Weight loss: grade 0 - No weight loss Nausea:Grade 0 - No Symptoms Radiation Dermatitis:grade 0 - No symptoms Dysphagia: grade 0 - No symptoms Esophageal Pain: Grade 0 - No symptoms Dyspnea: grade 0 (No symptoms) Treatment chart checked: Yes Patient treatment site reviewed and verified:Yes Port films reviewed and current:Yes Medications started: None ASSESSMENT/PLAN: Clinically stable. Toxicity within expected parameters. Continue radiation treatment as planned. Zeferino Desouza MD [facility] 11-28-2023 History of Present illness Narrative Radiation Oncology - On Treatment Review (OTR) Note PATIENT NAME: Marnie Arana PATIENT DIAGNOSIS: Ms. Arana is a 53-year-old woman diagnosed with Stage I, [id number] (AJCC)/Stage IIa ([place]) thymoma (Type AB) status post bilateral robotic-assisted VATS total thymectomy on 09/13/[address] Turner. 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 Tumor was noted to be present at the anterior and posterior margins of the specimen (R1). PROTOCOL: no COURSE: post-operative Current dose: 5000 cGy in 25 fx Planned dose: 5400 cGy in 27 fx SUBJECTIVE: Tolerating XRT well and denies any pain/discomfort in the upper chest or neck and reports no skin irritation or breakdown and reports swallowing well without issues. She has no change in her breathing and reports no cough or voice changes. She endorses good energy as she continues to work good appetite and hydration and stable weight. She has been working with her neurology team and reports improvement in her vision after adjusting her medications. PHYSICAL EXAM: Area Assessed: Chest KPS: 90 General Appearance: Alert and oriented. No acute distress. Chest: No respiratory distress. IMAGING/LAB RESULTS: None TOXICITY ASSESSMENT (CTC v4.0): Fatigue: grade 0 - No symptoms Weight loss: grade 0 - No weight loss Nausea:Grade 0 - No Symptoms Radiation Dermatitis:grade 0 - No symptoms Dysphagia: grade 0 - No symptoms Esophageal Pain: Grade 0 - No symptoms Dyspnea: grade 0 (No symptoms) Treatment chart checked: Yes Patient treatment site reviewed and verified:Yes Port films reviewed and current:Yes Medications started: None ASSESSMENT/PLAN: Clinically stable. Toxicity within expected parameters. Continue radiation treatment as planned. Zeferino Desouza MD documented in this encounter 11-26-2023 History of Present illness Narrative Radiation Oncology - On Treatment Review (OTR) Note PATIENT NAME: Marnie Arana PATIENT Zeferino Desouza MD documented in this encounter 11-21-2023 Nurse Note Status: Post-menopausal. 11-21-2023 Nurse Note Status: Post-menopausal. documented in this encounter 11-21-2023 Note HNO ID: [id number] Author: ZEFERINO DESOUZA MD Service: ? Author Type: Physician Type: Progress Notes Filed: 12/03/2023 17:08 Note Text: Radiation Oncology - On Treatment Review (OTR) Note PATIENT NAME: Marnie Arana PATIENT DIAGNOSIS: Ms. Arana is a 53-year-old woman diagnosed with Stage I, [id number] (AJCC)/Stage IIa ([place]) thymoma (Type AB) status post bilateral robotic-assisted VATS total thymectomy on 09/13/[address] Turner. 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 Tumor was noted to be present at the anterior and posterior margins of the specimen (R1). PROTOCOL: no COURSE: post-operative Current dose: 4000 cGy in 20 fx Planned dose: 5400 cGy in 27 fx SUBJECTIVE: Tolerating XRT well denies any pain/discomfort in the chest or neck and reports no skin irritation or itching. She denies any change in breathing or cough or any trouble with voice and continues to swallow well without issues. She endorses good energy appetite and hydration with stable weight that she continues to work. PHYSICAL EXAM: Area Assessed: Chest KPS: 90 General Appearance: Alert and oriented. No acute distress. Chest: No respiratory distress. IMAGING/LAB RESULTS: None TOXICITY ASSESSMENT (CTC v4.0): Fatigue: grade 0 - No symptoms Weight loss: grade 0 - No weight loss Nausea:Grade 0 - No Symptoms Radiation Dermatitis:grade 0 - No symptoms Dysphagia: grade 0 - No symptoms Esophageal Pain: Grade 0 - No symptoms Dyspnea: grade 0 (No symptoms) Treatment chart checked: Yes Patient treatment site reviewed and verified:Yes Port films reviewed and current:Yes Medications started: None ASSESSMENT/PLAN: Clinically stable. No signs of toxicity. Continue radiation treatment as planned. Zeferino Desouza MD [facility] 11-21-2023 History of Present illness Narrative Radiation Oncology - On Treatment Review (OTR) Note PATIENT NAME: Marnie Arana PATIENT DIAGNOSIS: Ms. Arana is a 53-year-old woman diagnosed with Stage I, [id number] (AJCC)/Stage IIa ([place]) thymoma (Type AB) status post bilateral robotic-assisted VATS total thymectomy on 09/13/[address] Turner. 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 Tumor was noted to be present at the anterior and posterior margins of the specimen (R1). PROTOCOL: no COURSE: post-operative Current dose: 4000 cGy in 20 fx Planned dose: 5400 cGy in 27 fx SUBJECTIVE: Tolerating XRT well denies any pain/discomfort in the chest or neck and reports no skin irritation or itching. She denies any change in breathing or cough or any trouble with voice and continues to swallow well without issues. She endorses good energy appetite and hydration with stable weight that she continues to work. PHYSICAL EXAM: Area Assessed: Chest KPS: 90 General Appearance: Alert and oriented. No acute distress. Chest: No respiratory distress. IMAGING/LAB RESULTS: None TOXICITY ASSESSMENT (CTC v4.0): Fatigue: grade 0 - No symptoms Weight loss: grade 0 - No weight loss Nausea:Grade 0 - No Symptoms Radiation Dermatitis:grade 0 - No symptoms Dysphagia: grade 0 - No symptoms Esophageal Pain: Grade 0 - No symptoms Dyspnea: grade 0 (No symptoms) Treatment chart checked: Yes Patient treatment site reviewed and verified:Yes Port films reviewed and current:Yes Medications started: None ASSESSMENT/PLAN: Clinically stable. No signs of toxicity. Continue radiation treatment as planned. Zeferino Desouza MD documented in this encounter 11-14-2023 Note HNO ID: [id number] Author: ZEFERINO DESOUZA MD Service: ? Author Type: Physician Type: Progress Notes Filed: 11/27/2023 06:18 Note Text: Radiation Oncology - On Treatment Review (OTR) Note PATIENT NAME: Marnie Arana PATIENT DIAGNOSIS: Ms. Arana is a 53-year-old woman diagnosed with Stage I, [id number] (AJCC)/Stage IIa ([place]) thymoma (Type AB) status post bilateral robotic-assisted VATS total thymectomy on 09/13/[address] Turner. 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 Tumor was noted to be present at the anterior and posterior margins of the specimen (R1). PROTOCOL: no COURSE: post-operative Current dose: 3000 cGy in 15 fx Planned dose: 5400 cGy in 27 fx SUBJECTIVE: Tolerating XRT well and denies any pain/discomfort in the chest/throat and denies any skin irritation or breakdown. She reports being able to swallow well and eat all consistencies and no choking sensation and reports no issues with breathing or cough. She endorses stable energy as she continues to work with good appetite and hydration and stable weight. PHYSICAL EXAM: Area Assessed: Chest KPS: 90 General Appearance: Alert and oriented. No acute distress. Chest: No respiratory distress. IMAGING/LAB RESULTS: None TOXICITY ASSESSMENT (CTC v4.0): Fatigue: grade 0 - No symptoms Weight loss: grade 0 - No weight loss Nausea:Grade 0 - No Symptoms Radiation Dermatitis:grade 0 - No symptoms Dysphagia: grade 0 - No symptoms Esophageal Pain: Grade 0 - No symptoms Dyspnea: grade 0 (No symptoms) Treatment chart checked: Yes Patient treatment site reviewed and verified:Yes Port films reviewed and current:Yes Medications started: None ASSESSMENT/PLAN: Clinically stable. Toxicity within expected parameters. Continue radiation treatment as planned. Zeferino Desouza MD [facility] 11-07-2023 Nurse Note Status: Post-menopausal. 11-07-2023 Nurse Note Status: Post-menopausal. documented in this encounter 11-07-2023 History of Present illness Narrative Radiation Oncology - On Treatment Review (OTR) Note PATIENT NAME: Marnie Arana PATIENT DIAGNOSIS: Ms. Arana is a 53-year-old woman diagnosed with Stage I, [id number] (AJCC)/Stage IIa ([place]) thymoma (Type AB) status post bilateral robotic-assisted VATS total thymectomy on 09/13/[address] Turner. 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 Tumor was noted to be present at the anterior and posterior margins of the specimen (R1). PROTOCOL: no COURSE: post-operative Current dose: 2000 cGy in 10 fx Planned dose: 5400 cGy in 27 fx Status: History of hysterectomy SUBJECTIVE: Tolerating surgery well and denies any significant changes from last week. She reports no skin irritation or itching or dryness in the treatment area and denies any chest discomfort. She reports no change in her breathing and denies any cough or hemoptysis or difficulty swallowing. She endorses good energy as she continues to work with good appetite and hydration and stable weight. Her double vision continues to improve as she needs less pyridostigmine and is decreasing her prednisone down to 15 mg. PHYSICAL EXAM: Area Assessed: Chest KPS: 90 General Appearance: Alert and oriented. No acute distress. Chest: No respiratory distress. IMAGING/LAB RESULTS: None TOXICITY ASSESSMENT (CTC v4.0): Fatigue: grade 0 - No symptoms Weight loss: grade 0 - No weight loss Nausea:Grade 0 - No Symptoms Radiation Dermatitis:grade 0 - No symptoms Dysphagia: grade 0 - No symptoms Esophageal Pain: Grade 0 - No symptoms Dyspnea: grade 0 (No symptoms) Treatment chart checked: Yes Patient treatment site reviewed and verified:Yes Port films reviewed and current:Yes Medications started: None ASSESSMENT/PLAN: Clinically stable. Toxicity within expected parameters. Continue radiation treatment as planned. Zeferino Desouza MD documented in this encounter 11-07-2023 Note HNO ID: [id number] Author: ZEFERINO DESOUZA MD Service: ? Author Type: Physician Type: Progress Notes Filed: 11/07/2023 15:37 Note Text: Radiation Oncology - On Treatment Review (OTR) Note PATIENT NAME: Marnie Arana PATIENT DIAGNOSIS: Ms. Arana is a 53-year-old woman diagnosed with Stage I, [id number] (AJCC)/Stage IIa ([place]) thymoma (Type AB) status post bilateral robotic-assisted VATS total thymectomy on 09/13/[address] Turner. 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 Tumor was noted to be present at the anterior and posterior margins of the specimen (R1). PROTOCOL: no COURSE: post-operative Current dose: 2000 cGy in 10 fx Planned dose: 5400 cGy in 27 fx Status: History of hysterectomy SUBJECTIVE: Tolerating surgery well and denies any significant changes from last week. She reports no skin irritation or itching or dryness in the treatment area and denies any chest discomfort. She reports no change in her breathing and denies any cough or hemoptysis or difficulty swallowing. She endorses good energy as she continues to work with good appetite and hydration and stable weight. Her double vision continues to improve as she needs less pyridostigmine and is decreasing her prednisone down to 15 mg. PHYSICAL EXAM: Area Assessed: Chest KPS: 90 General Appearance: Alert and oriented. No acute distress. Chest: No respiratory distress. IMAGING/LAB RESULTS: None TOXICITY ASSESSMENT (CTC v4.0): Fatigue: grade 0 - No symptoms Weight loss: grade 0 - No weight loss Nausea:Grade 0 - No Symptoms Radiation Dermatitis:grade 0 - No symptoms Dysphagia: grade 0 - No symptoms Esophageal Pain: Grade 0 - No symptoms Dyspnea: grade 0 (No symptoms) Treatment chart checked: Yes Patient treatment site reviewed and verified:Yes Port films reviewed and current:Yes Medications started: None ASSESSMENT/PLAN: Clinically stable. Toxicity within expected parameters. Continue radiation treatment as planned. Zeferino Desouza MD [facility] 10-31-2023 History of Present illness Narrative Radiation Oncology - On Treatment Review (OTR) Note PATIENT NAME: Marnie Arana PATIENT DIAGNOSIS: Ms. Arana is a 53-year-old woman diagnosed with Stage I, [id number] (AJCC)/Stage IIa ([place]) thymoma (Type AB) status post bilateral robotic-assisted VATS total thymectomy on 09/13/[address] Turner. 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 Tumor was noted to be present at the anterior and posterior margins of the specimen (R1). PROTOCOL: no COURSE: post-operative Current dose: 1000 cGy in 5 fx Planned dose: 5400 cGy in 27 fx Status: History of hysterectomy SUBJECTIVE: Tolerated first week of XRT well and denies any pain/discomfort in the neck/chest and denies any trouble swallowing or shortness of breath or chest pain or cough or hemoptysis. She does endorse good energy as she has returned to work and is using her normal glasses more often with periodic use of pyridostigmine as needed. She is also on a slow taper off of her prednisone. She endorses good energy appetite and hydration with stable weight. PHYSICAL EXAM: Area Assessed: Chest KPS: 90 General Appearance: Alert and oriented. No acute distress. Chest: No respiratory distress. IMAGING/LAB RESULTS: None TOXICITY ASSESSMENT (CTC v4.0): Fatigue: grade 0 - No symptoms Weight loss: grade 0 - No weight loss Nausea:Grade 0 - No Symptoms Radiation Dermatitis:grade 0 - No symptoms Dysphagia: grade 0 - No symptoms Esophageal Pain: Grade 0 - No symptoms Dyspnea: grade 0 (No symptoms) Treatment chart checked: Yes Patient treatment site reviewed and verified:Yes Port films reviewed and current:Yes Medications started: None ASSESSMENT/PLAN: Clinically stable. Toxicity within expected parameters. Continue radiation treatment as planned. We reviewed general precautions/instructions during radiation treatment to the chest as well as the potential acute toxicities during treatment and their time course. Discussed the importance of a well-balanced diet, hydration, and exercise/activity as tolerated through the course of treatment. Zeferino Desouza MD documented in this encounter 10-31-2023 Note HNO ID: [id number] Author: ZEFERINO DESOUZA MD Service: ? Author Type: Physician Type: Progress Notes Filed: 11/06/2023 05:54 Note Text: Radiation Oncology - On Treatment Review (OTR) Note PATIENT NAME: Marnie Arana PATIENT DIAGNOSIS: Ms. Arana is a 53-year-old woman diagnosed with Stage I, [id number] (AJCC)/Stage IIa ([place]) thymoma (Type AB) status post bilateral robotic-assisted VATS total thymectomy on 09/13/[address] Turner. 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 Tumor was noted to be present at the anterior and posterior margins of the specimen (R1). PROTOCOL: no COURSE: post-operative Current dose: 1000 cGy in 5 fx Planned dose: 5400 cGy in 27 fx Status: History of hysterectomy SUBJECTIVE: Tolerated first week of XRT well and denies any pain/discomfort in the neck/chest and denies any trouble swallowing or shortness of breath or chest pain or cough or hemoptysis. She does endorse good energy as she has returned to work and is using her normal glasses more often with periodic use of pyridostigmine as needed. She is also on a slow taper off of her prednisone. She endorses good energy appetite and hydration with stable weight. PHYSICAL EXAM: Area Assessed: Chest KPS: 90 General Appearance: Alert and oriented. No acute distress. Chest: No respiratory distress. IMAGING/LAB RESULTS: None TOXICITY ASSESSMENT (CTC v4.0): Fatigue: grade 0 - No symptoms Weight loss: grade 0 - No weight loss Nausea:Grade 0 - No Symptoms Radiation Dermatitis:grade 0 - No symptoms Dysphagia: grade 0 - No symptoms Esophageal Pain: Grade 0 - No symptoms Dyspnea: grade 0 (No symptoms) Treatment chart checked: Yes Patient treatment site reviewed and verified:Yes Port films reviewed and current:Yes Medications started: None ASSESSMENT/PLAN: Clinically stable. Toxicity within expected parameters. Continue radiation treatment as planned. We reviewed general precautions/instructions during radiation treatment to the chest as well as the potential acute toxicities during treatment and their time course. Discussed the importance of a well-balanced diet, hydration, and exercise/activity as tolerated through the course of treatment. Zeferino Desouza MD [facility] 10-31-2023 Nurse Note Status: Patient states there is no possibility she is at this time. 10-31-2023 Nurse Note Status: Patient states there is no possibility she is at this time. documented in this encounter 10-29-2023 Instructions David Dsouza MD - 10/29/2023 4:52 PM EDT We evaluated today as a follow-up for myasthenia gravis. Based on our assessment, we think that you have improved significantly. We recommend the following: - Continue prednisone 20mg daily until the end of October 2023. - Starting on November 07, 2023, start taking prednisone 15mg daily. - Starting on December 08, 2023, start taking prednisone 10mg daily (if having no issues while on 15mg). Stay on this dose until your next follow-up appointment. - Continue taking pyridostigmine (Mestinon) as needed. Adjust the timing of the dose based on when you have symptoms. You do not need to wake up in the night to take a dose. Follow-up in 3-4 months. documented in this encounter 10-29-2023 History of Present illness Narrative [facility] Note- Established patient Provider: David Dsouza MD ([facility] Fellow)/ Quinten Ruiz MD ([facility]) Date of last clinic visit: 07/16/23 History Since Last Evaluation: Here for follow-up evaluation of seropositive, thymomatous myasthenia gravis. Active issues: 1) Underwent thymectomy on 09/13/23. No complications. Tolerated procedure well. 2) Pathology showed type AB thymoma with transcapsular invasion but negative lymph nodes. She met with Radiation oncology and has started radiation. Has completed 3 treatments. 3) Vision has improved. When she returned to work in early October, she felt the double vision and fatigue become worse. She saw her local rn child who did not find objective evidence of worsening vision and advised her that stress is likely contributing. Her vision is now improving again. Tolerating prednisone 20mg daily well. Continues to take pyridostigmine every 6 hours at 0200, 0800, 1400 and 2000. She also wears prism glasses. MG - Activities of Daily Living (MG-ADL) 1. Talkin=Normal 2. Chewin=Normal 3. Swallowin=Normal 4. Breathin=Normal 5. Impairment of ability to brush teeth or comb hair: 0=None 6. Impairment of ability to arise from a chair: 0=None 7. Double vision: 1=Occurs, but not daily 8. Eyelid droop: 0=None MG-ADL Total Score: 1 Meds and allergies as listed (below and above, respectively) Current Outpatient Medications Medication Sig cholecalciferol, vitamin D3, (VITAMIN D3 ORAL) Take by mouth. ibuprofen (MOTRIN) 600 mg tablet Take 1 tablet by mouth every 6 hours as needed for pain. predniSONE (DELTASONE) 10 mg tablet Take 2 tablets by mouth once daily. pyRIDostigmine bromide 30 mg tab Take 1 tablet by mouth four times daily. No current facility-administered medications for this visit. No new details in the family history or social history were offered by the patient. Review of symptoms including constitutional, eyes, ENT, neck, respiratory, cardiovascular, GI, , musculoskeletal, hematologic, oncologic, endocrine, and psychiatric categories is unchanged. EXAM FINDINGS: BP 114/56 Pulse 78 Ht 160 cm (5' 3 ) Wt 100.2 kg (221 lb) SpO2 94% BMI 39.15 kg/m General Medical Exam: No changes in eye/ENT, neck, respiratory, cardiac, GI, back, extremities and skin examination. Neurological Examination: Mental Status: Alert and oriented to person, place, and time with fluent speech. Cranial Nerves: II: Visual park full to confrontational testing. III-IV-: Pupils equally round and reactive to light. Normal EOMs but with slight exotropia when individual eyes are covered. No ptosis bilaterally, including with prolonged exercise V: Normal facial sensation. VII: orbicularis oculus: right 5/5, left 5/5, frontalis 5/5 and orbicularis david 5/5. VIII: Normal hearing. IX-X: Normal palatal movement. XI: Normal shoulder shrug and head rotation. XII: Normal tongue strength and range of motion, no deviation or fasciculation. Motor: Normal tone and muscle bulk. No atrophy. Neck flexion 5/5, neck extension 5/5. Strength/power is 5/5 with shoulder abduction and hip flexion bilaterally. Able to rise from chair without use of arms. DTRs: 2+ B/L UEs & LEs. Sensory: Intact to light touch, temperature and vibration. Gait: normal-based, good arm-swing, doug. Normal station. INTERVAL PERTINENT STUDIES (reviewed) Surgical Pathology - Thymus (09/13/23): A. Pericardium, excision: - Negative for neoplasm. B. Thymus, total thymectomy: - Thymoma, World Health Organization (WHO), Type AB, 4.5 cm - Four (4) lymph nodes negative for neoplasm. IMPRESSION: 53 yo F who presents today as a follow-up for seropositive, thymomatous myasthenia gravis s/p thymectomy. 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 Can wean prednisone and monitor symptoms. PLAN: - Continue prednisone 20mg daily until the end of October. - Starting on 11/07/23, decrease prednisone to 15mg daily. - If stable, decrease prednisone to 10mg daily on 12/08/23 and keep at that dose until next follow-up appointment. - Discussed appropriate use pyridostigmine (emphasized that she should not wake herself up at 2AM to take a dose). Patient will adjust how she uses it and track her symptoms. Return visit in ~ 3 months To contact this office via telephone and/or [employer] if no communication of results received by expected turnaround time, as discussed during the visit. To aid with communication, patients (and primary care physicians) can sign up for [employer] (or [employer]), which allows online appointment scheduling, transmission of labs results and chart notes, and secure email communication. To establish either account, visit [email or web address]. David Dsouza MD [place] Fellow, [facility] [place] In the service of Quinten Ruiz MD (NM Staff) [NB- clinic note not considered final until co-signed by NM Staff] Primary care provider: Ana María Mckeon MD ([facility]) [address] [place] [address] I saw and evaluated the patient, reviewed and discussed the yañez elements and findings with the fellow, and agree with and edited where appropriate the above note. Medical Decision Making: Problems: Low: Stable chronic illness Data: Unique test result(s) reviewed: 1 Risk: Moderate: Drug management Medical Decision Making Level: 3 - Low Quinten Ruiz MD documented in this encounter 10-29-2023 Note HNO ID: [id number] Author: QUINTEN RUIZ MD Service: ? Author Type: Fellow Type: Progress Notes Filed: 10/30/2023 11:05 Note Text: [facility] [place] [facility] Note- Established patient Provider: David Dsouza MD ([facility] Fellow)/ Quinten Ruiz MD ([facility] Staff) Date of last clinic visit: 07/16/23 History Since Last Evaluation: Here for follow-up evaluation of seropositive, thymomatous myasthenia gravis. Active issues: 1) Underwent thymectomy on 09/13/23. No complications. Tolerated procedure well. 2) Pathology showed type AB thymoma with transcapsular invasion but negative lymph nodes. She met with Radiation oncology and has started radiation. Has completed 3 treatments. 3) Vision has improved. When she returned to work in early October, she felt the double vision and fatigue become worse. She saw her local rn child who did not find objective evidence of worsening vision and advised her that stress is likely contributing. Her vision is now improving again. Tolerating prednisone 20mg daily well. Continues to take pyridostigmine every 6 hours at 0200, 0800, 1400 and 2000. She also wears prism glasses. MG - Activities of Daily Living (MG-ADL) 1. Talkin=Normal 2. Chewin=Normal 3. Swallowin=Normal 4. Breathin=Normal 5. Impairment of ability to brush teeth or comb hair: 0=None 6. Impairment of ability to arise from a chair: 0=None 7. Double vision: 1=Occurs, but not daily 8. Eyelid droop: 0=None MG-ADL Total Score: 1 Meds and allergies as listed (below and above, respectively) Current Outpatient Medications Medication Sig cholecalciferol, vitamin D3, (VITAMIN D3 ORAL) Take by mouth. ibuprofen (MOTRIN) 600 mg tablet Take 1 tablet by mouth every 6 hours as needed for pain. predniSONE (DELTASONE) 10 mg tablet Take 2 tablets by mouth once daily. pyRIDostigmine bromide 30 mg tab Take 1 tablet by mouth four times daily. No current facility-administered medications for this visit. No new details in the family history or social history were offered by the patient. Review of symptoms including constitutional, eyes, ENT, neck, respiratory, cardiovascular, GI, , musculoskeletal, hematologic, oncologic, endocrine, and psychiatric categories is unchanged. EXAM FINDINGS: BP 114/56 Pulse 78 Ht 160 cm (5' 3 ) Wt 100.2 kg (221 lb) SpO2 94% BMI 39.15 kg/m? General Medical Exam: No changes in eye/ENT, neck, respiratory, cardiac, GI, back, extremities and skin examination. Neurological Examination: Mental Status: Alert and oriented to person, place, and time with fluent speech. Cranial Nerves: II: Visual park full to confrontational testing. III-IV-: Pupils equally round and reactive to light. Normal EOMs but with slight exotropia when individual eyes are covered. No ptosis bilaterally, including with prolonged exercise V: Normal facial sensation. VII: orbicularis oculus: right 5/5, left 5/5, frontalis 5/5 and orbicularis david 5/5. VIII: Normal hearing. IX-X: Normal palatal movement. XI: Normal shoulder shrug and head rotation. XII: Normal tongue strength and range of motion, no deviation or fasciculation. Motor: Normal tone and muscle bulk. No atrophy. Neck flexion 5/5, neck extension 5/5. Strength/power is 5/5 with shoulder abduction and hip flexion bilaterally. Able to rise from chair without use of arms. DTRs: 2+ B/L UEs AND LEs. Sensory: Intact to light touch, temperature and vibration. Gait: normal-based, good arm-swing, doug. Normal station. INTERVAL PERTINENT STUDIES (reviewed) Surgical Pathology - Thymus (09/13/23): A. Pericardium, excision: - Negative for neoplasm. B. Thymus, total thymectomy: - Thymoma, World Health Organization (WHO), Type AB, 4.5 cm - Four (4) lymph nodes negative for neoplasm. IMPRESSION: 53 yo F who presents today as a follow-up for seropositive, thymomatous myasthenia gravis s/p thymectomy. 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 Can wean prednisone and monitor symptoms. PLAN: - Continue prednisone 20mg daily until the end of October. - Starting on 11/07/23, decrease prednisone to 15mg daily. - If stable, decrease prednisone to 10mg daily on 12/08/23 and keep at that dose until next follow-up appointment. - Discussed appropriate use pyridostigmine (emphasized that she should not wake herself up at 2AM to take a dose). Patient will adjust how she uses it and track her symptoms. Return visit in ~ 3 months To contact this office via telephone and/or [employer] if no communication of results received by expected turnaround time, as discussed during the visit. To aid with communication, patients (and primary care physicians) can sign up for [employer] (or [employer]), which allows online appointment scheduling, transmission of l (more content not included)... [facility] 10-29-2023 History of Present illness Narrative Radiology Service Progress Note PATIENT NAME: Marnie Arana DATE OF SERVICE: October 29, 2023 TIME: 1:26 PM PATIENT IDENTITY VERIFICATION COMPLETED USING TWO (2) IDENTIFIERS: Name and Date of confirmed by patient verbally. FALL SCREENING: Has the patient had 2 falls in the last year or 1 fall with injury or currently using an Ambulatory Assistive Device (Walker, Cane, Wheelchair, Crutches, etc.)? No PATIENT GENDER DATA: Female. status: : No status: NO. PATIENT RELEVANT IMPLANT DATA REVIEWED: Not Applicable PATIENT PRESENTS WITH AN IMPLANTABLE OR ATTACHED SATELLITE TELEVISION INSTALLER: No RADIOLOGY DEPARTMENT: General X-ray: Exam(s) Completed: Chest X-Ray PERIPHERAL IV DATA: Not applicable SIGNED BY: BRODY Neves) October 29, 2023 1:26 PM documented in this encounter 10-29-2023 Note HNO ID: [id number] Author: VENANCIO RAMOS RT(R) Service: Radiology Author Type: Technologist Type: Progress Notes Filed: 10/29/2023 13:26 Note Text: Radiology Service Progress Note PATIENT NAME: Marnie Arana DATE OF SERVICE: October 29, 2023 TIME: 1:26 PM PATIENT IDENTITY VERIFICATION COMPLETED USING TWO (2) IDENTIFIERS: Name and Date of confirmed by patient verbally. FALL SCREENING: Has the patient had 2 falls in the last year or 1 fall with injury or currently using an Ambulatory Assistive Device (Walker, Cane, Wheelchair, Crutches, etc.)? No PATIENT GENDER DATA: Female. status: : No status: NO. PATIENT RELEVANT IMPLANT DATA REVIEWED: Not Applicable PATIENT PRESENTS WITH AN IMPLANTABLE OR ATTACHED SATELLITE TELEVISION INSTALLER: No RADIOLOGY DEPARTMENT: General X-ray: Exam(s) Completed: Chest X-Ray PERIPHERAL IV DATA: Not applicable SIGNED BY: RT Pura(R) October 29, 2023 1:26 PM [facility] 10-29-2023 Note HNO ID: [id number] Author: KANDY VALLECILLO APRN.BODY CARE MANAGER Service: ? Author Type: Nurse Practitioner Type: Progress Notes Filed: 10/29/2023 14:41 Note Text: [facility] - OUTPATIENT THORACIC SURGERY CLINIC NOTE PT NAME: Marnie Cassidy [facility] NO: [id number] THORACIC SURGEON: Jasiel Turner M.D. DATE OF SERVICE: 10/29/2023 PRINCIPAL DX: -T1aN0 stage IIa Thymoma, (+) margin -Myasthenia Gravis SURGICAL HX: 09/13/2023: Robotic bilateral thymectomy Surgical Pathology: FINAL DIAGNOSIS A. Pericardium, excision: - Negative for neoplasm. B. Thymus, total thymectomy: - Thymoma, World Health Organization (WHO), Type AB, 4.5 cm - Four (4) lymph nodes negative for neoplasm. Diagnosis Comment A. A Movat stain has been used to evaluate the pericardium. B. Immunohistochemical studies demonstrate the tumor cells are diffusely positive for CK AE1AE3, CK CAM5.2 and p63. The admixed lymphocytes within the neoplasm are strongly positive for CD3 (in both types A and B foci); TdT is predominantly positive in the Type B area, and, CD20 is present as scattered clusters throughout the tumor. The tumor appears present at the anterior (sternal) margin of excision (orange ink--Slide B4) and at a disrupted posterior margin (blue ink---Slide B1). Dr. Vikash Gold, Thoracic pathology, has also reviewed this case and concurs. Laboratory Developed Test (LDT) Disclaimer: Performance characteristics of immunohistochemical, immunofluorescent and chromogenic in-situ hybridization tests have been determined by the performing laboratory within ?s [facility] [place] ([facility], [facility], [facility], [facility], [facility], or [facility]) in a manner consistent with CLIA requirements. One or more of these tests have not been cleared or approved by the FDA. [facility] is regulated under CLIA as qualified to perform high-complexity testing. These tests are used for clinical purposes. They should not be regarded as investigational or for research. Positive and negative controls stain appropriately. Block for additional Biomarkers/Molecular studies B1 Synoptic Report THYMUS 8th Edition - Protocol posted: 09/28/2021 THYMUS: RESECTION - All Specimens SPECIMEN Procedure Thymectomy TUMOR Tumor Site Thymus Histologic Type Type AB thymoma Tumor Size Greatest Dimension (Centimeters): 4.5 cm Lymphovascular Invasion Not identified Treatment Effect No known presurgical therapy Site(s) Involved by Direct Tumor Invasion Microscopic transcapsular invasion into thymic or perithymic fat MARGINS Margin Status Tumor present at margin Margin(s) Involved by Tumor Anterior and posterior REGIONAL LYMPH NODES Regional Lymph Node Status All regional lymph nodes negative for tumor Number of Lymph Nodes Examined 4 DISTANT METASTASIS Distant Site(s) Involved Cannot be determined PATHOLOGIC STAGE CLASSIFICATION (pTNM, AJCC 8th Edition) Reporting of pT, pN, and (when applicable) pM categories is based on information available to the pathologist at the time the report is issued. As per the AJCC (Chapter 1, 8th Ed.) it is the managing physician?s responsibility to establish the final pathologic stage based upon all pertinent information, including but potentially not limited to this pathology report. 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 Preoperative Hospital Course: Presented with blurry vision in the evening as well as intermittent double vision, symptoms began 05/2023. 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 As part of his workup, a CT of her brain orbits completed that showed a tortuous left optic nerve but no other abnormal findings. Serum testing was significant for positive acetylcholine receptor binding antibodies and she was referred to a neurologist. Started on pyridostigmine 30mg TID and prednisone 10mg daily in June 2023. Prednisone was increased to 20 mg daily in July 2023 given new presence of ptosis. Chest CT showed the presence of a possible thymomatous mass and she was referred Thoracic surgery for possible surgical intervention. On 09/13/23 she underwent Robotic bilateral thymectomy with Dr. Jasiel Turner. She was discharged 09/15/23 with left shasta drain. PHYSICAL EXAM: VITAL SIGNS: BP 127/77 Pulse 93 Temp 36.7 ?C (98 ?F) (Oral) Resp 16 Wt 100.2 kg (221 lb) SpO2 95% BMI 38.84 kg/m? R (more content not included)... [facility] 10-29-2023 History of Present illness Narrative Images from the original note were not included. [facility] - OUTPATIENT THORACIC SURGERY CLINIC NOTE PT NAME: Marnie Cassidy [facility] NO: [id number] THORACIC SURGEON: Jasiel Turner M.D. DATE OF SERVICE: 10/29/2023 PRINCIPAL DX: -T1aN0 stage IIa Thymoma, (+) margin -Myasthenia Gravis SURGICAL HX: 09/13/2023: Robotic bilateral thymectomy Surgical Pathology: FINAL DIAGNOSIS A. Pericardium, excision: - Negative for neoplasm. B. Thymus, total thymectomy: - Thymoma, World Health Organization (WHO), Type AB, 4.5 cm - Four (4) lymph nodes negative for neoplasm. Diagnosis Comment A. A Movat stain has been used to evaluate the pericardium. B. Immunohistochemical studies demonstrate the tumor cells are diffusely positive for CK AE1AE3, CK CAM5.2 and p63. The admixed lymphocytes within the neoplasm are strongly positive for CD3 (in both types A and B foci); TdT is predominantly positive in the Type B area, and, CD20 is present as scattered clusters throughout the tumor. The tumor appears present at the anterior (sternal) margin of excision (orange ink--Slide B4) and at a disrupted posterior margin (blue ink---Slide B1). Dr. Vikash Gold, Thoracic pathology, has also reviewed this case and concurs. Laboratory Developed Test (LDT) Disclaimer: Performance characteristics of immunohistochemical, immunofluorescent and chromogenic in-situ hybridization tests have been determined by the performing laboratory within s [facility] [place] ([facility], [facility], [facility], [facility], [facility], or [facility]) in a manner consistent with CLIA requirements. One or more of these tests have not been cleared or approved by the FDA. [facility] is regulated under CLIA as qualified to perform high-complexity testing. These tests are used for clinical purposes. They should not be regarded as investigational or for research. Positive and negative controls stain appropriately. Block for additional Biomarkers/Molecular studies B1 Synoptic Report THYMUS 8th Edition - Protocol posted: 09/28/2021 THYMUS: RESECTION - All Specimens SPECIMEN Procedure Thymectomy TUMOR Tumor Site Thymus Histologic Type Type AB thymoma Tumor Size Greatest Dimension (Centimeters): 4.5 cm Lymphovascular Invasion Not identified Treatment Effect No known presurgical therapy Site(s) Involved by Direct Tumor Invasion Microscopic transcapsular invasion into thymic or perithymic fat MARGINS Margin Status Tumor present at margin Margin(s) Involved by Tumor Anterior and posterior REGIONAL LYMPH NODES Regional Lymph Node Status All regional lymph nodes negative for tumor Number of Lymph Nodes Examined 4 DISTANT METASTASIS Distant Site(s) Involved Cannot be determined PATHOLOGIC STAGE CLASSIFICATION (pTNM, AJCC 8th Edition) Reporting of pT, pN, and (when applicable) pM categories is based on information available to the pathologist at the time the report is issued. As per the AJCC (Chapter 1, 8th Ed.) it is the managing physician s responsibility to establish the final pathologic stage based upon all pertinent information, including but potentially not limited to this pathology report. 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 Preoperative Hospital Course: Presented with blurry vision in the evening as well as intermittent double vision, symptoms began 05/2023. 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 As part of his workup, a CT of her brain orbits completed that showed a tortuous left optic nerve but no other abnormal findings. Serum testing was significant for positive acetylcholine receptor binding antibodies and she was referred to a neurologist. Started on pyridostigmine 30mg TID and prednisone 10mg daily in June 2023. Prednisone was increased to 20 mg daily in July 2023 given new presence of ptosis. Chest CT showed the presence of a possible thymomatous mass and she was referred Thoracic surgery for possible surgical intervention. On 09/13/23 she underwent Robotic bilateral thymectomy with Dr. Jasiel Turner. She was discharged 09/15/23 with left shasta drain. PHYSICAL EXAM: VITAL SIGNS: BP 127/77 Pulse 93 Temp 36.7 C (98 F) (Oral) Resp 16 Wt 100.2 kg (221 lb) SpO2 95% BMI 38.84 kg/m Room air Incision location: Bilateral Thoracop[place] sites Incision Assessment: Well approximated and no drainage, swelling, erythema or warmth Drain/Tubes: NA IMAGING/TESTS: CT Chest 10/17/23: IMPRESSION: Resection of anterior mediastinal mass. Unchanged 3 mm right upper lobe nodule. CXR 10/29/2023 PENDING INTERVAL HISTORY: Marnie Arana returns for post op visit. She has been doing fairly well. Incisions are healing nicely. No chest pain or SOB. She has started radiation treatments and has had 3 of 27 so far. 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 Not sure if it was due to stress or looking at the computer. She has been off for the last 3 days and she feels that her vision is back to baseline. She has a follow up with neurology later today. CXR shows well expanded lungs CT scan from 10/17/23 showed no evidence of disease. She will return iin [address] scan of her chest. IMPRESSION: 53 year old female s/p Robotic bilateral thymectomy 09/13/[address] Jasiel Turner for T1aN0 stage IIa Thymoma, (+) margin, Myasthenia Gravis, PLAN: - return 10/29/23 with a CXR. - neurology management with Dr Dsouza, f/u 10/29/23 Kandy Vallecillo APRN.BODY CARE MANAGER documented in this encounter 10-16-2023 History of Present illness Narrative Radiology Service Progress Note DATE OF SERVICE: October 16, 2023 TIME: 12:31 PM PATIENT WEIGHT: 219LBS PATIENT IDENTITY VERIFICATION COMPLETED USING TWO (2) STANDARD IDENTIFIERS: Name and Date of confirmed by patient verbally. FALL SCREENING: Has the patient had 2 falls in the last year or 1 fall with injury or currently using an Ambulatory Assistive Device (Walker, Cane, Wheelchair, Crutches, etc.)? No PATIENT GENDER DATA: Female. status: : No status: NO. ALLERGIES: Reviewed and unchanged CONTRAST ALLERGY: No EXAM: CT -CONTRAST INDUCED NEPHROPATHY RISK FACTORS: Not applicable CREATININE: Creatinine Date Value Ref Range Status 09/15/2023 0.76 0.58 - 0.96 mg/dL Final 09/14/2023 0.77 0.58 - 0.96 mg/dL Final 09/14/2023 0.76 0.58 - 0.96 mg/dL Final Estimated Glomerular Filtration Rate Date Value Ref Range Status 09/15/2023 93 >=60 mL/min/1.73m Final Comment: Estimated Glomerular Filtration Rate (eGFR) is calculated using the 2020 CKD-EPI creatinine equation. This equation utilizes serum creatinine, sex, and age as parameters. The creatinine assay has traceable calibration to isotope dilution-mass spectrometry. Refer to KDIGO guidelines for clinical interpretation. In patients with unstable renal function, e.g. those with acute kidney injury, the eGFR may not accurately reflect actual GFR. P.O.C.T. RESULTS: POC done: Yes, See Lab Tab 09/15/23 TREATMENT: No Hydration needed. IV SITE: Ambulatory: A peripheral IV was started in the Right antecubital site with a Angio cath: 20 gauge. IV SITE APPEARANCE: Clean,Dry and Intact SIGNATURE: Deirdre House RN PATIENT NAME: Marnie Arana DATE: October 16, 2023 TIME: 12:31 PM Radiology Service Progress Note PATIENT NAME: Marnie Arana DATE OF SERVICE: October 16, 2023 TIME: 12:33 PM PATIENT IDENTITY VERIFICATION COMPLETED USING TWO (2) IDENTIFIERS: Name and Date of confirmed by patient verbally. FALL SCREENING: Has the patient had 2 falls in the last year or 1 fall with injury or currently using an Ambulatory Assistive Device (Walker, Cane, Wheelchair, Crutches, etc.)? No PATIENT GENDER DATA: Female. status: : No status: NO. PATIENT RELEVANT IMPLANT DATA REVIEWED: Not Applicable PATIENT PRESENTS WITH AN IMPLANTABLE OR ATTACHED SATELLITE TELEVISION INSTALLER: No RADIOLOGY DEPARTMENT: CT; Exam(s) Completed: Chest PERIPHERAL IV DATA: Site assessment: Clean,Dry and Intact, Site disposition Discontinued SIGNED BY: RT Beau(Carlos) October 16, 2023 12:33 PM documented in this encounter 10-16-2023 Note HNO ID: [id number] Author: JOEL CARRANZA RT(R) Service: ? Author Type: Technologist Type: Progress Notes Filed: 10/16/2023 12:34 Note Text: Radiology Service Progress Note PATIENT NAME: Marnie Arana DATE OF SERVICE: October 16, 2023 TIME: 12:33 PM PATIENT IDENTITY VERIFICATION COMPLETED USING TWO (2) IDENTIFIERS: Name and Date of confirmed by patient verbally. FALL SCREENING: Has the patient had 2 falls in the last year or 1 fall with injury or currently using an Ambulatory Assistive Device (Walker, Cane, Wheelchair, Crutches, etc.)? No PATIENT GENDER DATA: Female. status: : No status: NO. PATIENT RELEVANT IMPLANT DATA REVIEWED: Not Applicable PATIENT PRESENTS WITH AN IMPLANTABLE OR ATTACHED SATELLITE TELEVISION INSTALLER: No RADIOLOGY DEPARTMENT: CT; Exam(s) Completed: Chest PERIPHERAL IV DATA: Site assessment: Clean,Dry and Intact, Site disposition Discontinued SIGNED BY: RT Beau(Carlos) October 16, 2023 12:33 PM [facility] 10-16-2023 Note HNO ID: [id number] Author: DEIRDRE HOUSE RN Service: ? Author Type: Registered Nurse Type: Progress Notes Filed: 10/16/2023 12:32 Note Text: Radiology Service Progress Note DATE OF SERVICE: October 16, 2023 TIME: 12:31 PM PATIENT WEIGHT: 219LBS PATIENT IDENTITY VERIFICATION COMPLETED USING TWO (2) STANDARD IDENTIFIERS: Name and Date of confirmed by patient verbally. FALL SCREENING: Has the patient had 2 falls in the last year or 1 fall with injury or currently using an Ambulatory Assistive Device (Walker, Cane, Wheelchair, Crutches, etc.)? No PATIENT GENDER DATA: Female. status: : No status: NO. ALLERGIES: Reviewed and unchanged CONTRAST ALLERGY: No EXAM: CT -CONTRAST INDUCED NEPHROPATHY RISK FACTORS: Not applicable CREATININE: Creatinine Date Value Ref Range Status 09/15/2023 0.76 0.58 - 0.96 mg/dL Final 09/14/2023 0.77 0.58 - 0.96 mg/dL Final 09/14/2023 0.76 0.58 - 0.96 mg/dL Final Estimated Glomerular Filtration Rate Date Value Ref Range Status 09/15/2023 93 >=60 mL/min/1.73m? Final Comment: Estimated Glomerular Filtration Rate (eGFR) is calculated using the 2020 CKD-EPI creatinine equation. This equation utilizes serum creatinine, sex, and age as parameters. The creatinine assay has traceable calibration to isotope dilution-mass spectrometry. Refer to KDIGO guidelines for clinical interpretation. In patients with unstable renal function, e.g. those with acute kidney injury, the eGFR may not accurately reflect actual GFR. P.O.C.T. RESULTS: POC done: Yes, See Lab Tab 09/15/23 TREATMENT: No Hydration needed. IV SITE: Ambulatory: A peripheral IV was started in the Right antecubital site with a Angio cath: 20 gauge. IV SITE APPEARANCE: Clean,Dry and Intact SIGNATURE: Deirdre House RN PATIENT NAME: Marnie Arana DATE: October 16, 2023 TIME: 12:31 PM [facility] 10-12-2023 History of Present illness Narrative MARNIE ARANA [id number] 10/12/[address] [facility] Radiation Oncology Department SIMULATION NOTE DATE OF SIMULATION: 10/12/2023 THERAPIST: Key Day MACHINE: Siemens Biograph mCT DIAGNOSIS: Malignant neoplasm of anterior [id number] AREA: THORAX CONTRAST: IV <Select> Consent in Epic: Yes PATIENT POSITION: Supine. FIXATION DEVICE: In order to achieve accurate and reproducible treatments, the patient is immobilized with THE ORFIT AIO SYSTEM. 4DCT WAS UTILIZED AT [facility] 50ML OF OMNI 300 WAS ADMINISTERED VIA THE RT FOREARM A time-out was conducted and recorded by the therapist. CT scan was completed for target localization and planning. Field arrangement will be determined after plan has been completed. The patient is scheduled for a verification simulation on the treatment machine to ensure proper set-up and field arrangement is correct prior to the first treatment of primary and boost park if applicable. Patient education will be completed per nursing. Electronically Signed Zeferino Desouza M.D. / CARL 45:27 PM documented in this encounter 10-12-2023 History of Present illness Narrative MARNIE ARANA [id number] 10/12/[address] [facility] Department of Radiation Oncology Treatment Planning Note For reasons stated in the consult note, Marnie Arana is a candidate for radiation therapy. Based on review and interpretation of the relevant diagnostic studies together with the exam findings, Marnie Arana was simulated on 10/12/2023 at which time the target volume and/or requisite park were delineated, as indicated in the simulation note, to be treated according to the prescription. An ITV was created from all the phases of respiratory motion captured by the 4DCT image sets. Motion management allowed for design of patient specific planning target volume and reduced the radiation exposure to normal tissues. The treatment target and organs at risk were contoured on the simulation scan using the fused PET. Special consideration to these and other structures was given in light of the potential for increased toxicities. Pulmonary function testing was reviewed. After reviewing multiple treatment plans with dosimetry, the best plan was approved to deliver the prescribed course of radiation to the target area using inverse planning to allow for the best isodose distribution, treating to the 96.9% isodose line with 6MV and 2 park. Custom MLC asym jaws for IMRT were the treatment devices used to shape/modify the beams. Limiting dose to normal tissue was confirmed upon review of the calculated dose volume histogram. IMRT planning was used because it best met the dose/volume constraints for the organs at risk for this patient, better than what could be achieved using conventional or 3D planning. The specific dose requirements for the PTV, organs at risk and dose-volume histograms are contained in this treatment plan and/or elsewhere in the medical record. A completed summary of this plan dated 10/24/2023 incorporated herein by reference includes dose, beam arrangements, energy, blocking, isodose distribution, and/or ports and DVH. Electronically Signed Zeferino Desouza M.D. 45:04 PM documented in this encounter 10-12-2023 Note HNO ID: [id number] Author: ZEFERINO DESOUZA MD Service: ? Author Type: Physician Type: Progress Notes Filed: 10/24/2023 17:04 Note Text: MARNIE ARANA [id number] 10/12/[address] [facility] Department of Radiation Oncology Treatment Planning Note For reasons stated in the consult note, Marnie Arana is a candidate for radiation therapy. Based on review and interpretation of the relevant diagnostic studies together with the exam findings, Marnie Arana was simulated on 10/12/2023 at which time the target volume and/or requisite park were delineated, as indicated in the simulation note, to be treated according to the prescription. An ITV was created from all the phases of respiratory motion captured by the 4DCT image sets. Motion management allowed for design of patient specific planning target volume and reduced the radiation exposure to normal tissues. The treatment target and organs at risk were contoured on the simulation scan using the fused PET. Special consideration to these and other structures was given in light of the potential for increased toxicities. Pulmonary function testing was reviewed. After reviewing multiple treatment plans with dosimetry, the best plan was approved to deliver the prescribed course of radiation to the target area using inverse planning to allow for the best isodose distribution, treating to the 96.9% isodose line with 6MV and 2 park. Custom MLC asym jaws for IMRT were the treatment devices used to shape/modify the beams. Limiting dose to normal tissue was confirmed upon review of the calculated dose volume histogram. IMRT planning was used because it best met the dose/volume constraints for the organs at risk for this patient, better than what could be achieved using conventional or 3D planning. The specific dose requirements for the PTV, organs at risk and dose-volume histograms are contained in this treatment plan and/or elsewhere in the medical record. A completed summary of this plan dated 10/24/2023 incorporated herein by reference includes dose, beam arrangements, energy, blocking, isodose distribution, and/or ports and DVH. Electronically Signed Zeferino Desouza M.D. :04 PM [facility] 10-12-2023 Note HNO ID: [id number] Author: ZEFERINO DESOUZA MD Service: ? Author Type: Physician Type: Progress Notes Filed: 10/12/2023 17:27 Note Text: MARNIE ARANA [id number] 10/12/[address] [facility] Radiation Oncology Department SIMULATION NOTE DATE OF SIMULATION: 10/12/2023 THERAPIST: Key Day MACHINE: [employer] DIAGNOSIS: Malignant neoplasm of anterior [id number] AREA: THORAX CONTRAST: IV Consent in Epic: Yes PATIENT POSITION: Supine. FIXATION DEVICE: In order to achieve accurate and reproducible treatments, the patient is immobilized with THE ORFIT AIO SYSTEM. 4DCT WAS UTILIZED AT [facility] 50ML OF OMNI 300 WAS ADMINISTERED VIA THE RT FOREARM A time-out was conducted and recorded by the therapist. CT scan was completed for target localization and planning. Field arrangement will be determined after plan has been completed. The patient is scheduled for a verification simulation on the treatment machine to ensure proper set-up and field arrangement is correct prior to the first treatment of primary and boost park if applicable. Patient education will be completed per nursing. Electronically Signed Zeferino Desouza M.D. / CARL :27 PM [facility] 10-11-2023 Nurse Note Radiation Therapy - Patient Education Note PATIENT NAME: Marnie Arana PATIENT October 11, 2023 [facility] FACILITY/LOCATION: [facility] READINESS TO LEARN Cognitive Ability: Alert and oriented Motivation to learn: Interested Family Support: High - Very involved in pt care Instruction provide to: Patient and Spouse Patient learns best by: Multiple Methods Factors effecting learning: Overwhelmed, emotional, tearful. Physical limitations effecting learning: None LEARNING RESPONSE Diagnosis: Pt simulated today for radiation therapy to chest. Education Topic/Teaching Points: Radiation therapy, Side effects, and OTV: Method of instruction: Written instruction - handouts Verbal instruction Patient /Family response: Patient and Patient and family verbalized understanding of radiation treatments, side effects, OTV, and transportation. Follow-up plan: Patient instructed to call with any further issues Recommend - Recommend continued instruction and follow up as directed Contact information given. Supplemental material: Informational handouts on Esophagitis/Mucositis, Fatigue, Skin changes, and managing swallowing difficulties, patient education binder. Referral (recommendation): None, Pt denied need for social work, van service, and torts law professor. Patient has an Onbody or Implanted device: No Signed by: Marian Vines LPN documented in this encounter 10-11-2023 Note HNO ID: [id number] Author: ZEFERINO DESOUZA MD Service: ? Author Type: Physician Type: Progress Notes Filed: 10/23/2023 04:57 Note Text: Radiation Oncology - New Patient/Consult Note PATIENT NAME: Marnie Arana PATIENT REQUESTING PHYSICIAN: Dr. Jasiel Turner DIAGNOSIS: Stage I, [id number] (AJCC)/Stage IIa ([place]) thymoma (Type AB) PATIENT IDENTIFICATION: This patient was seen in the Department of Radiation Oncology at the [facility] with Zeferino Desouza MD. She was accompanied today by her spouse. Final recommendations will be communicated back to the requesting physician by way of the shared medical record, or letter to requesting physician via [place] mail. HISTORY OF PRESENT ILLNESS: Ms. Arana is a 53-year-old woman from [place], [place], who was diagnosed with myasthenia gravis when she presented in May 2023 with symptoms of double vision. Initial workup by her rn child included a CT of her orbits which showed no specific abnormalities and she had improvement in her vision with the use of prism glasses. Blood work at the time did note the presence of acetylcholine receptor binding antibodies and subsequently met with a neurologist and was started on pyridostigmine. A CT scan of the chest was obtained on 07/03/2023 revealed a 4.8 cm lobulated anterior mediastinal mass consistent with a thymoma. She then met with Dr. Turner in thoracic surgery for further evaluation and treatment recommendations after discussing her options, she was brought to the OR on 09/13/2023 where she underwent bilateral robotic assisted VATS total thymectomy without incident. 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 Tumor was noted to be present at the anterior and posterior margins of the specimen ([place] Stage IIa). She is referred today to the radiation medicine clinic to have a discussion regarding the role of radiation therapy in the postoperative treatment of her thymic disease. INTERVAL HISTORY/REVIEW OF SYSTEMS: Ms. Arana notes recovering well from her recent surgery last month with no significant residual discomfort at this time. She denies any postoperative complications wound healing or infection and notes improvement in her vision since her surgery and no longer requires the prism glasses. She otherwise denies any recent fevers/chills, new headaches, changes in weight/appetite, difficulty with speech/swallowing, shortness of breath, chest pain/palpitations, abdominal pain, nausea/vomiting, change in bowel/urinary function, difficulty with gait/balance. The remainder of the review of systems was performed and was otherwise non-contributory except as described above. PAST MEDICAL HISTORY: PAST MEDICAL HISTORY Diagnosis Date Myasthenia gravis without exacerbation (HCC) PAST SURGICAL HISTORY: PAST SURGICAL HISTORY Procedure Laterality Date ASPIRATE/INJECT GANGLION CYST(S) left wrist REPAIR OF KNEE TOTAL ABDOM HYSTERECTOMY FAMILY HISTORY: FAMILY HISTORY Problem Relation Age of Onset other (Meningioma) Mother Lymphoma Mother other (Type 2 Diabetes Mellitus) Father SOCIAL HISTORY: Ms. Arana is , has 2 children, and lives in the [place], [place] area. 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 She denies any tobacco use and used to consume alcohol occasionally. RADIATION HISTORY: The patient denies any history of therapeutic radiation. ALLERGIES: ALLERGIES No Known Allergies MEDICATIONS: Current Outpatient Medications: cholecalciferol, vitamin D3, (VITAMIN D3 ORAL) predniSONE (DELTASONE) 10 mg tablet pyRIDostigmine bromide 30 mg tab ibuprofen (MOTRIN) 600 mg tablet PHYSICAL EXAMINATION: GENERAL: middle-aged woman sitting in chair, in no acute distress. VITALS: BP 141/80 Pulse 87 Temp 97.8 Resp 18 Ht 5' 3.25 (1.61m) Wt 215 lb 2.7 oz (97.6kg) SpO2 99% BMI 37.79 kg/(m2). KPS: 90 HEENT: NC/AT, anicteric sclera HEART: S1S2 LUNGS: non-labored breathing ABDOMEN: soft MUSCULOSKELETAL: no peripheral edema, moves all extremities. NEURO: no focal deficit; AANDO X3. LABORATORY DATA: Reference 09/27/23 WBC 3.70 - 11.00 k/uL 11.77 (H) Abs Neut (ANC) 1.45 - 7.50 k/uL 7.46 Hemoglobin 11.5 - 15.5 g/dL 13.5 Hematocrit 36.0 - 46.0 % 41.4 Platelet Count 150 - 400 k/uL 337 RBC 3.90 - 5.20 m/uL 4.44 MCV 80.0 - 100.0 fL 93.2 MCH 26.0 - 34.0 pg 30.4 MCHC 30.5 - 36.0 g/dL 32.6 MPV 9.0 - 12.7 fL 9.4 PATHOLOGIC DATA: 09/13/2023 FINAL DIAGNOSIS A. Pericardium, excision: - Negative for neoplasm. B. Thymus, total thymectomy: - Thymoma, World Health Organization (WHO), Type AB, 4.5 cm - Four (4) lymph nodes negative for neoplasm. Synoptic Report SPECIMEN Procedure Thymectomy TUMOR Tumor Site (more content not included)... [facility] 10-11-2023 History of Present illness Narrative Images from the original note were not included. Radiation Oncology - New Patient/Consult Note PATIENT NAME: Marnie Arana PATIENT REQUESTING PHYSICIAN: Dr. 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 She was accompanied today by her spouse. Final recommendations will be communicated back to the requesting physician by way of the shared medical record, or letter to requesting physician via [place] mail. HISTORY OF PRESENT ILLNESS: Ms. Arana is a 53-year-old woman from [place], [place], who was diagnosed with myasthenia gravis when she presented in May 2023 with symptoms of double vision. Initial workup by her rn child included a CT of her orbits which showed no specific abnormalities and she had improvement in her vision with the use of prism glasses. Blood work at the time did note the presence of acetylcholine receptor binding antibodies and subsequently met with a neurologist and was started on pyridostigmine. A CT scan of the chest was obtained on 07/03/2023 revealed a 4.8 cm lobulated anterior mediastinal mass consistent with a thymoma. She then met with Dr. Turner in thoracic surgery for further evaluation and treatment recommendations after discussing her options, she was brought to the OR on 09/13/2023 where she underwent bilateral robotic assisted VATS total thymectomy without incident. 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 Tumor was noted to be present at the anterior and posterior margins of the specimen ([place] Stage IIa). She is referred today to the radiation medicine clinic to have a discussion regarding the role of radiation therapy in the postoperative treatment of her thymic disease. INTERVAL HISTORY/REVIEW OF SYSTEMS: Ms. Arana notes recovering well from her recent surgery last month with no significant residual discomfort at this time. She denies any postoperative complications wound healing or infection and notes improvement in her vision since her surgery and no longer requires the prism glasses. She otherwise denies any recent fevers/chills, new headaches, changes in weight/appetite, difficulty with speech/swallowing, shortness of breath, chest pain/palpitations, abdominal pain, nausea/vomiting, change in bowel/urinary function, difficulty with gait/balance. The remainder of the review of systems was performed and was otherwise non-contributory except as described above. PAST MEDICAL HISTORY: PAST MEDICAL HISTORY Diagnosis Date Myasthenia gravis without exacerbation (HCC) PAST SURGICAL HISTORY: PAST SURGICAL HISTORY Procedure Laterality Date ASPIRATE/INJECT GANGLION CYST(S) left wrist REPAIR OF KNEE TOTAL ABDOM HYSTERECTOMY FAMILY HISTORY: FAMILY HISTORY Problem Relation Age of Onset other (Meningioma) Mother Lymphoma Mother other (Type 2 Diabetes Mellitus) Father SOCIAL HISTORY: Ms. Arana is , has 2 children, and lives in the [place], [place] area. 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 She denies any tobacco use and used to consume alcohol occasionally. RADIATION HISTORY: The patient denies any history of therapeutic radiation. ALLERGIES: ALLERGIES No Known Allergies MEDICATIONS: Current Outpatient Medications: cholecalciferol, vitamin D3, (VITAMIN D3 ORAL) predniSONE (DELTASONE) 10 mg tablet pyRIDostigmine bromide 30 mg tab ibuprofen (MOTRIN) 600 mg tablet PHYSICAL EXAMINATION: GENERAL: middle-aged woman sitting in chair, in no acute distress. VITALS: BP 141/80 Pulse 87 Temp 97.8 Resp 18 Ht 5' 3.25 (1.61m) Wt 215 lb 2.7 oz (97.6kg) SpO2 99% BMI 37.79 kg/(m^2). KPS: 90 HEENT: NC/AT, anicteric sclera HEART: S1S2 LUNGS: non-labored breathing ABDOMEN: soft MUSCULOSKELETAL: no peripheral edema, moves all extremities. NEURO: no focal deficit; A&O X3. LABORATORY DATA: Reference 09/27/23 WBC 3.70 - 11.00 k/uL 11.77 (H) Abs Neut (ANC) 1.45 - 7.50 k/uL 7.46 Hemoglobin 11.5 - 15.5 g/dL 13.5 Hematocrit 36.0 - 46.0 % 41.4 Platelet Count 150 - 400 k/uL 337 RBC 3.90 - 5.20 m/uL 4.44 MCV 80.0 - 100.0 fL 93.2 MCH 26.0 - 34.0 pg 30.4 MCHC 30.5 - 36.0 g/dL 32.6 MPV 9.0 - 12.7 fL 9.4 PATHOLOGIC DATA: 09/13/2023 FINAL DIAGNOSIS A. Pericardium, excision: - Negative for neoplasm. B. Thymus, total thymectomy: - Thymoma, World Health Organization (WHO), Type AB, 4.5 cm - Four (4) lymph nodes negative for neoplasm. Synoptic Report SPECIMEN Procedure Thymectomy TUMOR Tumor Site Thymus Histologic Type Type AB thymoma Tumor Size Greatest Dimension (Centimeters): 4.5 cm Lymphovascular Invasion Not identified Treatment Effect No known presurgical therapy Site(s) Involved by Direct Tumor Invasion Microscopic transcapsular invasion into thymic or perithymic fat MARGINS Margin Status Tumor present at margin Margin(s) Involved by Tumor Anterior and posterior REGIONAL LYMPH NODES Regional Lymph Node Status All regional lymph nodes negative for tumor Number of Lymph Nodes Examined 4 DISTANT METASTASIS Distant Site(s) Involved Cannot be determined PATHOLOGIC STAGE CLASSIFICATION (pTNM, AJCC 8th Edition) pT Category pT1a pN Category pN0 Modified [place] Stage Stage IIa ADDITIONAL FINDINGS Additional Findings Age-appropriate involutional changes RADIOLOGIC DATA: CT Chest (07/03/2023) IMPRESSION: * 4.8 cm lobulated anterior mediastinal mass, favored to reflect a thymoma in a patient with myasthenia gravis. Consider PET/CT to help delineate and exclude a possible thymic carcinoma. * Suspected hepatic hemangioma. MR abdomen may be considered for confirmatory assessment. * Multiple small subcentimeter thyroid nodules for which no additional evaluation is currently recommended. MRI Liver (08/28/2023) IMPRESSION: Four cavernous hepatic hemangiomas. No hepatic metastasis. IMPRESSION: Ms. 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 Turner. 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 Tumor was noted to be present at the anterior and posterior margins of the specimen. She is referred today to the radiation medicine clinic to have a discussion regarding the role of radiation therapy in the postoperative treatment of her thymic disease. I spent time with the patient and her spouse in decision making and discussion regarding the indications for, logistics of, and toxicity of radiation therapy to the mediastinum in this postoperative setting. We reviewed her preoperative imaging to visualize the location of her thymoma as well as her pathology report in detail noting the indications for postoperative radiation therapy which included microscopic invasion through the capsule as well as positive margins. We then reviewed the current NCCN guidelines for postoperative treatment of thymomas which also recommend postoperative radiation therapy in the setting of these pathologic features. Multiple questions were answered as they arose including a discussion of the mechanism of action of radiation therapy as well as potential causes for normal tissue toxicity. Based upon this discussion, informed consent was obtained, and we agreed to the following: RECOMMENDATIONS: 1. Based on the stage of her disease as well as the margin status, I would recommend a course of postoperative radiation therapy directed to the postoperative bed/mediastinum for local control. 2. She will be scheduled to return to clinic for CT simulation to begin treatment planning. 3. I will order a diagnostic CT of the chest for initial postoperative baseline. 4. I will review the margin status with Dr. Turner and the pathologist to confirm R1 versus R2 disease as this would have implications for postoperative radiation dose. 5. She will follow-up with Dr. Turenr and her neurology team as scheduled for continued postoperative care and evaluation. The patient and her spouse understand the plan as outlined above. All of their questions were answered to their full satisfaction prior to the end of this consultation. They have been provided with our contact information should they have any further questions or concerns in the interim. Thank you for allowing us to participate in the care of this patient. Signed: Zeferino Desouza MD I spent a total of 60 minutes on the date of the service which included preparing to see the patient, [id number] patient care, and counseling and educating the patient/family/caregiver. This document has been created with the use of voice recognition technology. It may contain inaccuracies, misspellings, inaccurate syntax or inappropriate word context that are a result of the inadequacies/shortcomings of said technology/software. documented in this encounter 10-11-2023 Nurse Note Pacemaker/Defibrillator?N Previous Cancer(s)?N Previous Radiation?N Lupus/Scleroderma?N On body monitoring device?N documented in this encounter 10-11-2023 Note Education ([facility]) MARNIE ARANA ([id number]) 1970 F Date Time Provider Department 10/11/23 MARIAN VINES Reason for Visit: Patient Education [91] Visit Notes: >> Marian Vines LPN [facility] Oct 11, 2023 2:57 PM Status: Signed Radiation Therapy - Patient Education Note PATIENT NAME: Marnie Arana PATIENT October 11, 2023 [facility] FACILITY/LOCATION: [facility] READINESS TO LEARN Cognitive Ability: Alert and oriented Motivation to learn: Interested Family Support: High - Very involved in pt care Instruction provide to: Patient and Spouse Patient learns best by: Multiple Methods Factors effecting learning: Overwhelmed, emotional, tearful. Physical limitations effecting learning: None LEARNING RESPONSE Diagnosis: Pt simulated today for radiation therapy to chest. Education Topic/Teaching Points: Radiation therapy, Side effects, and OTV: Method of instruction: Written instruction - handouts Verbal instruction Patient /Family response: Patient and Patient and family verbalized understanding of radiation treatments, side effects, OTV, and transportation. Follow-up plan: Patient instructed to call with any further issues Recommend - Recommend continued instruction and follow up as directed Contact information given. Supplemental material: Informational handouts on Esophagitis/Mucositis, Fatigue, Skin changes, and managing swallowing difficulties, patient education binder. Referral (recommendation): None, Pt denied need for social work, van service, and torts law professor. Patient has an Onbody or Implanted device: No Signed by: Marian Vines LPN Primary Visit Diagnosis:Thymoma [D49.89] During your visit today, we recorded the following information about you: Allergies As of Date: 10/11/2023 (No Known Allergies) Date Reviewed: 10/11/2023 Reviewed by: Marian Vines LPN - Fully Assessed Prescriptions as of 10/11/2023 - cholecalciferol, vitamin D3, (VITAMIN D3 ORAL) Take by mouth. - iv contrast (will be provided with radiology test) CT Chest W -Inject, intravenously, once for 1 dose.No IV access, insert saline lock prior to the beginning of sedation, infusion, injection of imaging exam. Discontinue saline lock post exam. If Pt. has a central line or IVAD, may access for administration according to line specific nursing protocol. Once exam is complete flush line and de-access according to line specific nursing protocol in the CT contrast administration guidelines link. - ibuprofen (MOTRIN) 600 mg tablet Take 1 tablet by mouth every 6 hours as needed for pain. - predniSONE (DELTASONE) 10 mg tablet Take 2 tablets by mouth once daily. - pyRIDostigmine bromide 30 mg tab Take 1 tablet by mouth four times daily. Encounter Status:Closed by MARIAN VINES on 10/11/23 [facility] 10-05-2023 Note HNO ID: [id number] Author: KANDY VALLECILLO APRN.ISABELL Service: ? Author Type: Nurse Practitioner Type: Progress Notes Filed: 10/05/2023 09:48 Note Text: Ms Arana is phoned to discuss the results of her pathology. She was found to have a type AB Thymoma. Margins were unfortunately positive for tumor. We will arrange for a radiation oncology consultation for her. Kandy Vallecillo APRN.ISABELL [facility] 09-27-2023 Note HNO ID: [id number] Author: ONIEL ROSENBERG RT(Carlos) Service: ? Author Type: Resident Services Supervisor Type: Progress Notes Filed: 09/27/2023 10:11 Note Text: Radiology Service Progress Note PATIENT NAME: Marnie Arana DATE OF SERVICE: September 27, 2023 TIME: 10:11 AM PATIENT IDENTITY VERIFICATION COMPLETED USING TWO (2) IDENTIFIERS: Name and Date of confirmed by patient verbally. FALL SCREENING: Has the patient had 2 falls in the last year or 1 fall with injury or currently using an Ambulatory Assistive Device (Walker, Cane, Wheelchair, Crutches, etc.)? No PATIENT GENDER DATA: Female. status: : No status: N/A PATIENT RELEVANT IMPLANT DATA REVIEWED: Not Applicable PATIENT PRESENTS WITH AN IMPLANTABLE OR ATTACHED SATELLITE TELEVISION INSTALLER: No RADIOLOGY DEPARTMENT: Ultrasound PERIPHERAL IV DATA: Not applicable SIGNED BY: RT Rosa(R) September 27, 2023 10:11 AM [facility] 09-26-2023 Miscellaneous Notes see letters. RTW on 10/15/2022 Kandi Price RN, BSN, [facility] documented in this encounter 09-21-2023 Instructions Kandy Vallecillo APRN.ISABELL - 09/21/2023 4:12 PM EDT -Shower regularly (starting tomorrow) to keep the incisions clean and inspect for signs of infection. -No water submersion/baths until all incisions are fully healed, typically this takes 6 weeks. -Walking is encouraged, this helps reduce swelling and lowers the chance of blood clots. - Continue to use your horn or blue pickle hourly while awake if possible to optimize lung expansion -No lifting/pushing/pulling greater than 5 lbs for 4 weeks after surgery. Do not perform pipeline integrity engineer such as laundry and vacuuming. Do not perform yard work or gardening. -Okay for tylenol alternating with ibuprofen for pain control (do not exceed 4 g tylenol in a 24 hour period, okay for ibuprofen 600 mg every 6 hours as needed for pain). -Okay for driving if you're not taking any narcotic pain medication for at least 2 days and you feel you can safely maneuver a motor vehicle. documented in this encounter 09-21-2023 Note HNO ID: [id number] Author: KANDY VALLECILLO APRN.ISABELL Service: ? Author Type: Nurse Practitioner Type: Progress Notes Filed: 09/21/2023 18:44 Note Text: [facility] - OUTPATIENT THORACIC SURGERY CLINIC NOTE PT NAME: Marnie Arana [facility] NO: [id number] THORACIC SURGEON: Jasiel Turner M.D. DATE OF SERVICE: September 21, 2023 PRINCIPAL DX: Myasthenia Gravis, Thymoma . Surgical pathology pending SURGICAL HX: 09/13/2023: Robotic bilateral thymectomy Surgical Pathology: PENDING REASON FOR VISIT: First post-operative visit HPI: Marnie Arana is a 53 year old female never smoker with PMHx of ocular myasthenia gravis (Ab +) and a thymoma. Preoperative Hospital Course: Presented with blurry vision in the evening as well as intermittent double vision, symptoms began 05/2023. 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 As part of his workup, a CT of her brain orbits completed that showed a tortuous left optic nerve but no other abnormal findings. Serum testing was significant for positive acetylcholine receptor binding antibodies and she was referred to a neurologist. Started on pyridostigmine 30mg TID and prednisone 10mg daily in June 2023. Prednisone was increased to 20 mg daily in July 2023 given new presence of ptosis. Chest CT showed the presence of a possible thymomatous mass and she was referred Thoracic surgery for possible surgical intervention. On 09/13/23 she underwent Robotic bilateral thymectomy with Dr. Jasiel Turner. She was discharged 09/15/23 with left shasta drain. PHYSICAL EXAM: VITAL SIGNS: BP 152/83 Pulse 67 Temp 36.7 ?C (98 ?F) (Oral) Ht 160 cm (5' 3 ) Wt 95.9 kg (211 lb 8 oz) SpO2 97% BMI 37.47 kg/m? Room air Incision location: Bilateral [place] sites Incision Assessment: Well approximated and no drainage, swelling, erythema or warmth Drain/Tubes: Left Shasta drain - removed GENERAL: well appearing, alert, no acute distress, well-hydrated, well nourished HEENT: normocephalic, midline, anicteric sclera. LUNGS: clear to auscultation, no wheezing or rhonchi HEART: RRR without murmur ABDOMEN: Soft, non-tender, non distended. No masses EXTREMITIES: No clubbing, cyanosis or edema. MUSCULOSKELETAL: Muscular strength intact. SKIN: turgor normal, no suspicious rashes or lesions NEURO: Gait normal. Sensation grossly intact. IMAGING/TESTS: CXR 09/21/2023: PENDING INTERVAL HISTORY: Marnie Arana returns for first post op visit. She has been doing fairly well. She has had adequate pain management with the use of Tylenol during the day and Oxycodone at night. She denies any SOB, fevers, chills. No c/o nausea or vomiting. She has been tolerating diet and has been moving her bowels regularly with the use of Miralax. Incisions are healing well and sutures are removed. Shasta drain has been draining minimally and is easily removed. An occlusive dressing is placed to the site. She may shower tomorrow. She will have the suture removed in once week locally. We have discussed increasing aerobic activity daily, as well as maintaining weight restriction of 5-10 lbs for the first month after surgery. We have also discussed no driving while on narcotics. CXR shows well expanded lungs Surgical pathology pending She will return i10/29/23 with a CXR. IMPRESSION: 53 year old female s/p Robotic bilateral thymectomy 09/13/[address] Jasiel Turner for Myasthenia Gravis, Thymoma . Surgical pathology pending PLAN: - return 10/29/23 with a CXR. - neurology management with Dr Dsouza, f/u 10/29/23 Kandy Vallecillo APRN.[facility] 09-21-2023 History of Present illness Narrative Images from the original note were not included. [facility] - OUTPATIENT THORACIC SURGERY CLINIC NOTE PT NAME: Marnie Arana [facility] NO: [id number] THORACIC SURGEON: Jasiel Turner M.D. DATE OF SERVICE: September 21, 2023 PRINCIPAL DX: Myasthenia Gravis, Thymoma . Surgical pathology pending SURGICAL HX: 09/13/2023: Robotic bilateral thymectomy Surgical Pathology: PENDING REASON FOR VISIT: First post-operative visit HPI: Marnie Arana is a 53 year old female never smoker with PMHx of ocular myasthenia gravis (Ab +) and a thymoma. Preoperative Hospital Course: Presented with blurry vision in the evening as well as intermittent double vision, symptoms began 05/2023. 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 As part of his workup, a CT of her brain orbits completed that showed a tortuous left optic nerve but no other abnormal findings. Serum testing was significant for positive acetylcholine receptor binding antibodies and she was referred to a neurologist. Started on pyridostigmine 30mg TID and prednisone 10mg daily in June 2023. Prednisone was increased to 20 mg daily in July 2023 given new presence of ptosis. Chest CT showed the presence of a possible thymomatous mass and she was referred Thoracic surgery for possible surgical intervention. On 09/13/23 she underwent Robotic bilateral thymectomy with Dr. Jasiel Turner. She was discharged 09/15/23 with left shasta drain. PHYSICAL EXAM: VITAL SIGNS: BP 152/83 Pulse 67 Temp 36.7 C (98 F) (Oral) Ht 160 cm (5' 3 ) Wt 95.9 kg (211 lb 8 oz) SpO2 97% BMI 37.47 kg/m Room air Incision location: Bilateral Thoracoport sites Incision Assessment: Well approximated and no drainage, swelling, erythema or warmth Drain/Tubes: Left Shasta drain - removed GENERAL: well appearing, alert, no acute distress, well-hydrated, well nourished HEENT: normocephalic, midline, anicteric sclera. LUNGS: clear to auscultation, no wheezing or rhonchi HEART: RRR without murmur ABDOMEN: Soft, non-tender, non distended. No masses EXTREMITIES: No clubbing, cyanosis or edema. MUSCULOSKELETAL: Muscular strength intact. SKIN: turgor normal, no suspicious rashes or lesions NEURO: Gait normal. Sensation grossly intact. IMAGING/TESTS: CXR 09/21/2023: PENDING INTERVAL HISTORY: Marnie Arana returns for first post op visit. She has been doing fairly well. She has had adequate pain management with the use of Tylenol during the day and Oxycodone at night. She denies any SOB, fevers, chills. No c/o nausea or vomiting. She has been tolerating diet and has been moving her bowels regularly with the use of Miralax. Incisions are healing well and sutures are removed. Shasta drain has been draining minimally and is easily removed. An occlusive dressing is placed to the site. She may shower tomorrow. She will have the suture removed in once week locally. We have discussed increasing aerobic activity daily, as well as maintaining weight restriction of 5-10 lbs for the first month after surgery. We have also discussed no driving while on narcotics. CXR shows well expanded lungs Surgical pathology pending She will return i10/29/23 with a CXR. IMPRESSION: 53 year old female s/p Robotic bilateral thymectomy 09/13/[address] Jasiel Turner for Myasthenia Gravis, Thymoma . Surgical pathology pending PLAN: - return 10/29/23 with a CXR. - neurology management with Dr Dsouza f/u 10/29/23 Kandy Vallecillo APRN.BODY CARE MANAGER documented in this encounter 09-21-2023 History of Present illness Narrative Radiology Service Progress Note PATIENT NAME: Marnie Arana DATE OF SERVICE: September 21, 2023 TIME: 3:12 PM PATIENT IDENTITY VERIFICATION COMPLETED USING TWO (2) IDENTIFIERS: Name and Date of confirmed by patient verbally. FALL SCREENING: Has the patient had 2 falls in the last year or 1 fall with injury or currently using an Ambulatory Assistive Device (Walker, Cane, Wheelchair, Crutches, etc.)? No PATIENT GENDER DATA: Female. status: : No status: NO. PATIENT RELEVANT IMPLANT DATA REVIEWED: Not Applicable PATIENT PRESENTS WITH AN IMPLANTABLE OR ATTACHED SATELLITE TELEVISION INSTALLER: No RADIOLOGY DEPARTMENT: General X-ray: Exam(s) Completed: Chest X-Ray PERIPHERAL IV DATA: Not applicable SIGNED BY: BRODY Neves) September 21, 2023 3:12 PM documented in this encounter 09-21-2023 Note HNO ID: [id number] Author: VENANCIO RAMOS RT(R) Service: Radiology Author Type: Technologist Type: Progress Notes Filed: 09/21/2023 15:12 Note Text: Radiology Service Progress Note PATIENT NAME: Marnie Arana DATE OF SERVICE: September 21, 2023 TIME: 3:12 PM PATIENT IDENTITY VERIFICATION COMPLETED USING TWO (2) IDENTIFIERS: Name and Date of confirmed by patient verbally. FALL SCREENING: Has the patient had 2 falls in the last year or 1 fall with injury or currently using an Ambulatory Assistive Device (Walker, Cane, Wheelchair, Crutches, etc.)? No PATIENT GENDER DATA: Female. status: : No status: NO. PATIENT RELEVANT IMPLANT DATA REVIEWED: Not Applicable PATIENT PRESENTS WITH AN IMPLANTABLE OR ATTACHED SATELLITE TELEVISION INSTALLER: No RADIOLOGY DEPARTMENT: General X-ray: Exam(s) Completed: Chest X-Ray PERIPHERAL IV DATA: Not applicable SIGNED BY: RT Pura(R) September 21, 2023 3:12 PM [facility] 09-21-2023 Miscellaneous Notes [place] paperwork completed and returned to administrative specialist for disbursement Off duty 09/12/2023 RTW 10/16/2023 Kandi Price RN, BSN, [facility] Thoracic Nurse Practice Mgr Received [facility] paperwork for patient. Paperwork given to Thoracic NPM for completion. After completion, paperwork is to be faxed to Attn: HR Kyle Martinez. Signed PHI release attached Unknown Dates: 08/06/23 Consult - Referring provider: Ana María Mckeon MD Diagnosis: Myasthenia gravis 09-12-23 Pre-Op 09-13-23 Surgery: ICD-10: G70.00 CPT: 41975 Morenita Bernstein documented in this encounter 09-21-2023 Miscellaneous Notes We are calling to check on how you are doing since our last phone call. Are you having any medical concerns we can help you with today? -No new medical concerns today. Call Outcome: All Clear All clear and closing statement given. PD RN verified patients name and date of . Xiang Lay RN documented in this encounter 09-17-2023 Miscellaneous Notes Transition of Care Additional Questions/Concerns Requiring PCP Follow-Up: No LORENZA scheduled at this time but patient will call if needed. Following up at as scheduled This documentation is being used for Transition of Care purposes: Yes Goal: Patient will demonstrate a safe transition from hospital to home. Diagnosis on Discharge: Myasthenia gravis (HCC) Thymoma Procedures THYMECTOMY PRTL/TOT W/O RAD MEDSTNL DSJ SPX THYMECTOMY, SPLIT OR TRANSTHORACIC Discharge Specialty: Endocrine Name of Discharging Facility: Date of Facility Discharge: 09/15/23 Date of Interactive Contact and Name of System Administrator: Spoke with Yaneth on 09/18/23 Medication Review Completed: Yes Medication Reconciliation Questions/Concerns: Follow Up Appointments with Providers: Primary: SO Briones Specialty: Surgery 09/21/23 Specialty: Specialty: Review of Pending Lab/Diagnostic Tests and Plan for Completion: DATE: 09/13/2023 OPERATION: Robotic bilateral thymectomy Assessment and Support of Treatment Regimen Adherence and Medication Management: Had 1 drain removed prior to DC and has 1 left which will be removed this Sunday No pain medication except at bed to help her rest Amount of drainage is lessening each day Feels a little better each day Following up with care team Education Provided by ACN to Support Self-Management, Independent Living and ADLs: Take medications as prescribed Post op complications and risk of infection; when to call MD For severe postoperative pain, you will be provided with a 7-day prescription for oxycodone at time of discharge. You may also take tylenol 650-1000 mg every 6 hours as needed, ibuprofen 200-600 mg every 6 hours as needed and/or lidocaine patches; all of which can be purchased over the counter. Take stool softeners to prevent constipation while taking narcotic pain medications Wound care: sponge bathing only until drain is removed. No lotions, creams, or ointments. Shasta drain care- measure output. Change dressing daily and as needed Activity restrictions reviewed- see DC instructions Contact phone number for next two weeks: [phone] (home) Primary service: Thoracic Surgery Patient verbalized understanding CN contact information for Toma Eid RN given. Communication with Home Health Agencies and Other Services Utilized/Needed by the Patient: NA documented in this encounter [employer] 09-17-2023 Telephone encounter Note Transition of Care Additional Questions/Concerns Requiring PCP Follow-Up: No LORENZA scheduled at this time but patient will call if needed. Following up at as scheduled This documentation is being used for Transition of Care purposes: Yes Goal: Patient will demonstrate a safe transition from hospital to home. Diagnosis on Discharge: Myasthenia gravis (HCC) Thymoma Procedures THYMECTOMY PRTL/TOT W/O RAD MEDSTNL DSJ SPX THYMECTOMY, SPLIT OR TRANSTHORACIC Discharge Specialty: Endocrine Name of Discharging Facility: Date of Facility Discharge: 09/15/23 Date of Interactive Contact and Name of System Administrator: Spoke with Yaneth on 09/18/23 Medication Review Completed: Yes Medication Reconciliation Questions/Concerns: Follow Up Appointments with Providers: Primary: SO Briones Specialty: Surgery 09/21/23 Specialty: Specialty: Review of Pending Lab/Diagnostic Tests and Plan for Completion: DATE: 09/13/2023 OPERATION: Robotic bilateral thymectomy Assessment and Support of Treatment Regimen Adherence and Medication Management: Had 1 drain removed prior to DC and has 1 left which will be removed this Sunday No pain medication except at bed to help her rest Amount of drainage is lessening each day Feels a little better each day Following up with care team Education Provided by ACN to Support Self-Management, Independent Living and ADLs: Take medications as prescribed Post op complications and risk of infection; when to call MD For severe postoperative pain, you will be provided with a 7-day prescription for oxycodone at time of discharge. You may also take tylenol 650-1000 mg every 6 hours as needed, ibuprofen 200-600 mg every 6 hours as needed and/or lidocaine patches; all of which can be purchased over the counter. Take stool softeners to prevent constipation while taking narcotic pain medications Wound care: sponge bathing only until drain is removed. No lotions, creams, or ointments. Shasta drain care- measure output. Change dressing daily and as needed Activity restrictions reviewed- see DC instructions Contact phone number for next two weeks: [phone] (home) Primary service: Thoracic Surgery Patient verbalized understanding CN contact information for Toma Eid RN given. Communication with Home Health Agencies and Other Services Utilized/Needed by the Patient: NA [facility] [employer] Work Phone: 09-17-2023 Miscellaneous Notes 1. Have you noticed any increase in shortness of breath since you left the hospital? No 2. Have you noticed any increased swelling in your feet, ankles, or belly? Skip for vascular pts No 3. Have you gained more than 2-3 pounds since discharge? Skip for vascular & EP pts No 4. Have you noticed any change in your incision, wound, IV sites since you were discharged as we want you to be aware of any signs of infection (fevers, chills, redness, warmth, swelling, increased tenderness, discharge)? No 5. Are you having any increased pain since discharge? If yes: What type of pain and where? (pressure, sharp pain, dull pain, etc.) No 6. Have you had any unplanned trips to the emergency department or hospital since you were discharged? If yes - why? No 7. Did you fill all of the prescribed medications? If no, do you need help filling your prescription? (Figure out why they re not filled) Yes 8. Do you have any questions about your medications? No 9. Do you have a doctor s appointment scheduled or is someone working on getting you a follow-up appointment? Yes Additional Comments: Pt instructed to contact 24-hour nurse hotline for any questions or concerns. Pt verbalized understanding. PD nurse confirmed/verified patient's and full name. All clear. Closing statement given. Barbara Busby RN documented in this encounter 09-15-2023 Note HNO ID: [id number] Author: CRISELDA SORTO ? Service: Pharmacy Author Type: Android Programmer Type: Plan of Care Filed: 09/15/2023 18:16 Note Text: PHARMACY BEDSIDE DELIVERY SERVICE Patient Name: Marnie Arana The marked outpatient medications were Filled at: [facility] and delivered to the patient's bedside to patient Medication List START taking these medications acetaminophen 500 mg tablet otc, no rx Commonly known as: TYLENOL Take 2 tablets by mouth every 6 hours for 7 days. ibuprofen 600 mg tablet Delivered Commonly known as: MOTRIN Take 1 tablet by mouth every 6 hours as needed for pain. oxyCODONE IR 5 mg immediate release tablet Delivered Commonly known as: ROXICODONE Take 1 tablet by mouth every 6 hours as needed for pain for up to 7 days. polyethylene glycol 3350 17 gram packet otc, no rx Take 1 Packet by mouth once daily for 7 days. For prevention of postoperative opioid induced constipation.. Dissolve dose in 4 - 8 ounces of liquid and take as directed. CONTINUE taking these medications predniSONE 10 mg tablet Commonly known as: DELTASONE Take 2 tablets by mouth once daily. pyRIDostigmine bromide 30 mg Tab Take 1 tablet by mouth four times daily. You might also be taking other medications not listed above. If you have questions about any of your other medications, talk to the person who prescribed them or your Primary Care Provider. STOP taking these medications mupirocin 2 % ointment Commonly known as: BACTROBAN Criselda Sorto September 15, 2023 8:33 AM [facility] 09-15-2023 Note HNO ID: [id number] Author: CRISELDA SORTO ? Service: Pharmacy Author Type: Android Programmer Type: Plan of Care Filed: 09/15/2023 08:33 Note Text: Insurance investigation completed Patient has active prescription insurance: Yes - Patient's insurance is in-network with [facility] Insurance loaded into [place]: Yes Test claim was completed to verify insurance is active: Successful Any questions, please contact your medication fabric and accessories estimator. Pager #: [phone] [facility] 09-15-2023 Note HNO ID: [id number] Author: CHARLEY OVIEDO MD Service: Thoracic Surgery Author Type: Resident Type: Progress Notes Filed: 09/15/2023 07:05 Note Text: [facility] THORACIC SURGERY PROGRESS NOTE Marnie Arana [id number] ASSESSMENT AND PLAN: 53 yo F s/p bilateral robo thymectomy for MG. DC right shasta. DC home with left shasta. INTERVAL EVENTS / PERTINENT REVIEW OF SYSTEMS: as above OBJECTIVE: Intake/Output Summary (Last 24 hours) at 09/15/2023 0704 Last data filed at 09/15/2023 0549 Gross per 24 hour Intake 440 ml Output 1790 ml Net -1350 ml PHYSICAL EXAM: 09/14/23205709/15/23 0005 09/15/23 0029 09/15/23 0503 BP: 161/74 182/75 150/82 158/73 Pulse: 60 (!) 54 (!) 56 (!) 53 Resp: Temp: 36.8 ?C (98.3 ?F) 36.7 ?C (98 ?F) 36.4 ?C (97.6 ?F) TempSrc: Oral Oral Oral SpO2: 92% 92% 95% 99% Weight: Height: GEN: NAD, AOx3 CV: RRR RESP: nonlabored on RA DATA: Laboratory: CBC, Coags, BMP, Mg, Phos Recent Labs 09/15/23 0406 09/14/23 0659 09/14/23 0412 09/12/23 1226 WBC 10.76 11.18* 10.91 -- HB 12.0 12.1 10.5* -- HCT 36.9 37.8 33.5* -- PLT 251 306 254 -- INR -- -- -- 1.0 APTT -- -- -- 27.3 NA 143 138 135* 140 K 4.6 4.3 5.6* 4.3 CHLOR 105 103 102 103 CO2 28 29 26 28 BUN 10 8 8 13 CREAT 0.76 0.77 0.76 0.76 GLUC 97 113* 384* 138* CA 8.9 9.0 8.3* 9.5 CSF AND Dilantin Liver Function, Amylase, AND Lipase Recent Labs 09/12/23 1226 TPROT 7.3 ALB 4.7 ALT 19 AST 16 ALKPHOS 71 TBILI 0.3 Cardiac Enzymes ABGs SIGNATURE: Charley Oviedo MD PAGER: [phone] [facility] 09-15-2023 Note HNO ID: [id number] Author: NOTE, INTERFACE, ? Service: ? Author Type: ? Type: Progress Notes Filed: 09/15/2023 03:37 Note Text: Epic Scheduled Downtime: 09/15/2023 1:00:00 AM to 09/15/2023 3:24:00 AM [facility] 09-14-2023 Note HNO ID: [id number] Author: PRAVEENA HARVEY RN Service: Care Management Author Type: Registered Nurse Type: Care Mgt Initial Assessment Filed: 09/14/2023 12:49 Note Text: CARE MANAGEMENT: ASSESSMENT AND DISCHARGE PLAN SERVICE DATE: September 14, 2023 SERVICE TIME: 12:46 PM PCP: Ana María Mckeon MD Primary Contact: Extended Emergency Contact Information Primary Emergency Contact: Sumit(HCPOA) Diony Address: [address] [place] [id number] [facility] Mobile Relation: Spouse Secondary Emergency Contact: Farrah(1st alt POA) [place] Mobile Relation: Father Admission Status: Inpatient Insurance Provider: [employer] SUPER[employer] PPO Post-Acute Discharge Plan: Per review of chart 53 yr old female form [place] s/p 09-13-2023 Robotic bilateral thymectomy. Myasthenia Gravis, Thymoma RA 6 Click 23 Anticipate dc 09-15-2023 This patient has been screened for Care Management Transitional Planning Services. At this time, it does not appear this patient will require transition planning services. Should this change, and the patient require transition planning services during this admission, please contact Case Management. SIGNATURE: Praveena Harvey RN PATIENT NAME: Marnie Arana DATE: September 14, 2023 TIME: 12:46 PM CONTACT #: [phone] [facility] 09-14-2023 Note HNO ID: [id number] Author: KARIS EDWARDS APRN.CNP Service: Thoracic Surgery Author Type: Nurse Practitioner Type: Progress Notes Filed: 09/14/2023 12:00 Note Text: [facility] POST-OP PROGRESS NOTE Marnie Arana [id number] PRIMARY SERVICE: Thoracic Surgery - Jasiel Turner M.D. DATE OF ADMISSION: 09/13/2023 DIAGNOSIS: Myasthenia Gravis, Thymoma DATE: 09/13/2023 SURGERY: Robotic bilateral thymectomy INTERVAL EVENTS / PERTINENT ROS: Surgery yesterday. Pain well controlled today. Weaned to room air. Ambulating in rizvi. Reports double vision at baseline. PERTINENT LABS: Hemoglobin (g/dL) Date Value 09/14/2023 12.1 Hematocrit (%) Date Value 09/14/2023 37.8 WBC (k/uL) Date Value 09/14/2023 11.18 Glucose (mg/dL) Date Value 09/14/2023 113 06/02/2023 113 Potassium (mmol/L) Date Value 09/14/2023 4.3 Sodium (mmol/L) Date Value 09/14/2023 138 Chloride (mmol/L) Date Value 09/14/2023 103 CO2 (mmol/L) Date Value 09/14/2023 29 Creatinine (mg/dL) Date Value 09/14/2023 0.77 BUN (mg/dL) Date Value 09/14/2023 8 Anion Gap (mmol/L) Date Value 09/14/2023 6 Calcium, Total (mg/dL) Date Value 09/14/2023 9.0 CXR: post operative changes, no significant pneumothorax or pleural effusion TELEMETRY: SR Intake/Output Summary (Last 24 hours) at 09/14/2023 1155 Last data filed at 09/14/2023 0952 Gross per 24 hour Intake 2823 ml Output 2391 ml Net 432 ml PHYSICAL EXAM: Blood pressure 134/58, pulse 62, temperature 36.6 ?C (97.9 ?F), temperature source Oral, resp. rate 17, height 160 cm (5' 3 ), weight 97.5 kg (214 lb 15.2 oz), SpO2 91%. Room air Constitutional: No acute distress HEENT: Fair dentition Resp: Clear and Respiratory effort: normal Cardiovascular: Regular rate AND rhythm and S1, S2 normal GI: Soft and Non-tender Integumentary: Warm and Dry Musculoskeletal: No deformities Neurological/Psychiatric: Oriented to time, place AND person Additional systems reviewed: No additional systems reviewed Incisions: -Bilateral chest port sites with surgical glue: well approximated, no erythema or drainage present Tubes/Lines/Drains: -Left chest 19f shasta to water seal, no air leak present, drained 80 ml of serosanguinous fluid yesterday -Right chest 19f shasta to water seal, no air leak present, drained 130 ml of serosanguinous fluid yesterday HISTORY, ASSESSMENT AND PLAN: Problem Summary Indication for Surgery: Myasthenia Gravis, Thymoma Preop LVEF: 65% RVF: Normal Important/Relevant PMH/PSH: 53 year old female never smoker with PMHx of ocular myasthenia gravis (Ab +) and a thymoma Preoperative Hospital Course: Presented with blurry vision in the evening as well as intermittent double vision, symptoms began 05/2023. 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 As part of his workup, a CT of her brain orbits completed that showed a tortuous left optic nerve but no other abnormal findings. Serum testing was significant for positive acetylcholine receptor binding antibodies and she was referred to a neurologist. Started on pyridostigmine 30mg TID and prednisone 10mg daily in June 2023. Prednisone was increased to 20 mg daily in July 2023 given new presence of ptosis. Chest CT showed the presence of a possible thymomatous mass and she was referred Thoracic surgery for possible surgical intervention. Now presents for Thymectomy. Airway Difficulty: Grade I Pacing Wires: No Chronological List of Surgeries and Major Events (Diagnosis): (Surgeries in bold characters) 09/13/2023: SURGERY: Robotic bilateral thymectomy A/P of Major Active Problems (excluding routine care and common problems): Thymoma: s/p thymectomy -Continue home mestinon -Nicole-op Stress dose steroids then resume home prednisone -Monitor MG symptoms -Bilateral 19f shasta drains -DVT prophylaxis -Follow final pathology Acute post operative pain: Intercostal nerve block performed in OR. Controlled with Fentanyl IV MODELING AGENCY MANAGER, Tylenol 1000 mg q6h, Toradol 15 mg q6h, and oxycodone 5-10 mg q6h. -Continue current regimen and stop IV MODELING AGENCY MANAGER To Do or to Watch: Continue home mestinon Nicole-op Stress dose steroids then transition to home prednisone IVIG post-op if there is any acute exacerbation Avoid MG exacerbating medications (amioglycoside antibiotics, fluroquinolones, macrolides, Magnesium, etc.) Bilateral shasta drains Discharge Planning: Anticipated Discharge Date: 09/15/2023 Barriers to Discharge:post op, pain control Care Management Discharge Needs: DAILY STEP DOWN CHECKLIST FOR CATHETER RELATED INFECTION PREVENTION CVC, PICC, Veronica and/or Permacath present? No Does the patient have a urinary catheter beyond POD 2? No VTE Risk Assessment: High risk (more content not included)... [facility] 09-13-2023 Note HNO ID: [id number] Author: KARIS EDWARDS APRN.CNP Service: Thoracic Surgery Author Type: Nurse Practitioner Type: Progress Notes Filed: 09/13/2023 17:22 Note Text: [facility] POST-OP PROGRESS NOTE Marnie Ange Arana [id number] PRIMARY SERVICE: Thoracic Surgery - Jasiel Turner M.D. DATE OF ADMISSION: 09/13/2023 DIAGNOSIS: Myasthenia Gravis, Thymoma DATE: 09/13/2023 SURGERY: Robotic bilateral thymectomy INTERVAL EVENTS / PERTINENT ROS: Surgery earlier today. Pain controlled. Denies MG symptoms (previous symptoms ocular). Denies nausea. PERTINENT LABS: No results found for: HB , HCT , WBC Glucose (mg/dL) Date Value 09/12/2023 138 06/02/2023 113 Potassium (mmol/L) Date Value 09/12/2023 4.3 Sodium (mmol/L) Date Value 09/12/2023 140 Chloride (mmol/L) Date Value 09/12/2023 103 CO2 (mmol/L) Date Value 09/12/2023 28 Creatinine (mg/dL) Date Value 09/12/2023 0.76 BUN (mg/dL) Date Value 09/12/2023 13 Anion Gap (mmol/L) Date Value 09/12/2023 9 Calcium, Total (mg/dL) Date Value 09/12/2023 9.5 CXR: post operative changes, no significant pneumothorax or pleural effusion TELEMETRY: SR Intake/Output Summary (Last 24 hours) at 09/13/2023 1619 Last data filed at 09/13/2023 1330 Gross per 24 hour Intake 1003.5 ml Output 555 ml Net 448.5 ml PHYSICAL EXAM: Blood pressure 143/74, pulse 61, temperature 36.4 ?C (97.5 ?F), temperature source Oral, resp. rate 18, height 160 cm (5' 3 ), weight 97.5 kg (215 lb), SpO2 97%. 3 liters nasal cannula Constitutional: No acute distress HEENT: Fair dentition Resp: Respiratory effort: normal Cardiovascular: Regular rate AND rhythm GI: Soft Integumentary: Warm and Dry Musculoskeletal: No deformities Neurological/Psychiatric: Oriented to time, place AND person Additional systems reviewed: No additional systems reviewed Incisions: -Bilateral chest port sites with surgical glue: well approximated, no erythema or drainage present Tubes/Lines/Drains: -Left chest 19f shasta to -10 suction, draining minimal serosanguinous fluid -Right chest 19f shasta to -10 suction, draining minimal serosanguinous fluid -Indwelling valle to gravity drain HISTORY, ASSESSMENT AND PLAN: Problem Acute Post-Operative Pain Summary Indication for Surgery: Thymoma Preop LVEF: 65% RVF: Normal Important/Relevant PMH/PSH: 53 year old female never smoker with PMHx of ocular myasthenia gravis (Ab +) and a thymoma Preoperative Hospital Course: Presented with blurry vision in the evening as well as intermittent double vision, symptoms began 05/2023. 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 As part of his workup, a CT of her brain orbits completed that showed a tortuous left optic nerve but no other abnormal findings. Serum testing was significant for positive acetylcholine receptor binding antibodies and she was referred to a neurologist. Started on pyridostigmine 30mg TID and prednisone 10mg daily in June 2023. Prednisone was increased to 20 mg daily in July 2023 given new presence of ptosis. Chest CT showed the presence of a possible thymomatous mass and she was referred Thoracic surgery for possible surgical intervention. Now presents for Thymectomy. Airway Difficulty: Grade I Pacing Wires: No Chronological List of Surgeries and Major Events (Diagnosis): (Surgeries in bold characters) 09/13/2023: SURGERY: Robotic bilateral thymectomy A/P of Major Active Problems (excluding routine care and common problems): Thymoma: s/p thymectomy -Continue home mestinon -Nicole-op Stress dose steroids then resume home prednisone -Monitor MG symptoms -Bilateral 19f shasta drains -DVT prophylaxis -Follow final pathology Acute post operative pain: Intercostal nerve block performed in OR. Controlled with Fentanyl IV MODELING AGENCY MANAGER, Tylenol 1000 mg q6h, Toradol 15 mg q6h, and oxycodone 5-10 mg q6h. -Continue current regimen To Do or to Watch: Continue home mestinon Nicole-op Stress dose steroids IVIG post-op if there is any acute exacerbation Discharge Planning: Anticipated Discharge Date: TBD Barriers to Discharge:post op, pain control Care Management Discharge Needs: DAILY STEP DOWN CHECKLIST FOR CATHETER RELATED INFECTION PREVENTION CVC, PICC, Veronica and/or Permacath present? No Does the patient have a urinary catheter beyond POD 2? No VTE Risk Assessment: High risk VTE Mechanical and/or Pharmacologic Prophylaxis: IPC Device, [place] hose, subcutaneous heparin Labs and medications reviewed in [facility] SIGNATURE: Karis Edwards APRN.[facility] PAGER: [phone] DATE of SERVICE: September 13, 2023 TIME of SERVICE: 5:15 PM [facility] 09-13-2023 Note HNO ID: [id number] Author: LEILANI SMITH APRN.CHANNEL PROCESS SUPERVISOR Service: ? Author Type: Nurse Dictating Machine Mechanic Type: Anesthesia Procedure Notes Filed: 09/13/2023 07:52 Note Text: ANESTHESIOLOGY PROCEDURE NOTE Airway General Information Procedure Start Time/Medication Administration: 09/13/2023 7:27 AM Patient location during procedure: OR Staffing Anesthesiologist: Tyler Temple MD CHANNEL PROCESS SUPERVISOR: Leilani Smith APRN.CHANNEL PROCESS SUPERVISOR Performed by: GABO Indications and Patient Condition Indications for airway management: anesthesia Preoxygenated: yes anesthesia circuit Method: asleep Cricoid Pressure: Yes Difficult Mask: No Final Airway Details Final airway type: endotracheal airway Final Endotracheal Airway: ETT - double lumen left Cuffed: yes Successful intubation technique: video laryngoscopy Devices used: AppSense Endotracheal tube insertion site: oral Blade size: #4 ETT DL size (fr): 37 Placement verified by: chest auscultation, bronchoscopy and capnometry Cormack-Lehane Classification: grade I - full view of glottis Number of attempts at approach: 1 Airway not difficult SIGNATURE: Leilani Smith APRN.CHANNEL PROCESS SUPERVISOR PATIENT NAME: Marnie Arana DATE: September 13, 2023 TIME: 7:51 AM CSN: [id number] [facility] 09-12-2023 Note HNO ID: [id number] Author: JASIEL TURNER MD Service: ? Author Type: Physician Type: Progress Notes Filed: 09/12/2023 14:50 Note Text: I have read and reviewed the documentation and agree. I wish to add the followingI wish to add the following findings which will be communicated back to the requesting physician. Jasiel Turner MD [facility] STAFF PHYSICIAN NOTE OF PERSONAL INVOLVEMENT IN CARE IMPRESSION: Patient is a 53 year old female with ocular MG and a thymoma. RBAT of a robotic Bilateral thymectomy discussed including bleeding, infection, acute on chronic exacerbation of MG sx and post-op pain. PLAN: Robotic Bilateral thymectomy Nicole-op Stress dose steroids. IVIG post-op if there is any acute exacerbation STAFF PHYSICIAN: Jasiel Turner MD DATE OF SERVICE: September 12, 2023 TIME OF SERVICE: 2:46 PM ' [facility] 09-12-2023 History of Present illness Narrative I have read and reviewed the documentation and agree. I wish to add the followingI wish to add the following findings which will be communicated back to the requesting physician. Jasiel Turner MD [facility] STAFF PHYSICIAN NOTE OF PERSONAL INVOLVEMENT IN CARE IMPRESSION: Patient is a 53 year old female with ocular MG and a thymoma. RBAT of a robotic Bilateral thymectomy discussed including bleeding, infection, acute on chronic exacerbation of MG sx and post-op pain. PLAN: Robotic Bilateral thymectomy Nicole-op Stress dose steroids. IVIG post-op if there is any acute exacerbation STAFF PHYSICIAN: Jasiel Turner MD DATE OF SERVICE: September 12, 2023 TIME OF SERVICE: 2:46 PM ' CBC was not done at preop lab appt. and anaesthesia (Dr.Katherine Gato MD) - ok without CBC. Kailee Bagley RN CHART COPY DO NOT DISCARD . Patient here today for TCI visit. . Surgery Bilateral Robotic thymectomy scheduled for 09/13/2023. . Meds allergies reviewed. Latex Allergy: No Anticoag:vitamin d - last dose 09/04/2023 Medport: No Preoperative instructions; NPO after midnight night prior to surgery and Listerine after brushing teeth and Hibiclens Shower. Patient verbalized understanding of instructions. . Last clinic note 08/06/23 per Jasiel Turner M.D. 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 I have discussed a bilateral robotic approach for a total mediastinal thymectomy. Will have to check with her neurologist about the need for plasmapheresis pre-op given the absence of any motor weakness and a normal PFT. Plan: Robotic Thymectomy Echo . Today's visit 09/12/23: CXR: 09/12/2023 IMPRESSION: No acute radiographic abnormality. . PFT: 08/06/23 FEV1 (L) 2.63 1.75 2.40 3.02 109 DLCOunc (ml/min/mmHg) 22.24 15.54 21.71 27.88 102 6MW: NA Cardiac Studies: Echo 09/12/2023 CONCLUSIONS: - Technically difficult exam due to body habitus. - Exam indication: Pre-op non cardiac - The left ventricle is normal in size. Left ventricular systolic function is normal. EF = 65 5% (visual est.) - The right ventricle is normal in size. Right ventricular systolic function is normal. - The patient has not had a prior CC echocardiographic exam for comparison. EK Impression SINUS BRADYCARDIA OTHERWISE NORMAL ECG Ventricular Rate BPM 57 Risk, benefits, and alternatives discussed per Jasiel Turner M.D. H&P 09/12/2023 per Films CCT 07/03/2023 and CXR 09/12/2023 . Kailee Bagley, AGATHA PHYSICAL EXAM BP 142/69 Pulse 77 Temp (Src) 98.5 (Oral) Resp 14 Ht 5' 3 (1.60m) Wt 211 lb (95.7kg) SpO2 96% BMI 37.39 kg/(m^2). Constitutional: Well developed and Obese HEENT: PERRLA Resp: Clear Cardiovascular: Regular rate & rhythm GI: Soft, round Integumentary: Warm Musculoskeletal: No deformities Neurological/Psychiatric: Oriented to time, place & person Additional systems reviewed: No additional systems reviewed Jasiel Turner MD documented in this encounter 09-12-2023 History of Present illness Narrative Cardiothoracic Anesthesiology Preoperative Assessment Service Date: 09/12/2023 Service Time: 11:32 AM Primary Care Physician: Ana María Mckeon MD Subjective Patient Entered Data: Cardiothoracic Surgery Pre-Op Questionnaire 09/06/2023 Previous anesthesia problems No Family history anesthesia problems No Blood consent Yes Esophageal history None Implanted devices No History difficult airway No Airway surgery No Ongoing pain issues No Heparin intolerance No Daily alcohol use No Illicit drug use No Scheduled procedure: Thymectomy Surgeon: Jasiel Turner Scheduled date: 09/13/2023 HPI: 53yo F scheduled for thymectomy. PMH includes: - Thymoma - CT scan shows 4.8 x 3.0 cm lobulated, mediastinal mass near the aortopulmonary window. Asymptomatic. Able to lie flat. - Myasthenia gravis on pyridostigmine 30 mg 4x daily and prednisone (10 mg daily starting 06/16/23, increased to 20 mg daily in Jul 2023). Per neurology note, symptoms began 05/2023 and are limited to double vision primarily in the afternoon, with no evidence of bulbar or proximal weakness. - Per neuro note: No need for pre-surgical optimization (I.e., IVIG or PLEX) for prevention of crisis. Given ocular only symptoms she is at very low risk of post-operative crisis. Today we discussed the anesthetic plan, what to expect, and addressed the patient's questions and concerns regarding anesthesia. Perioperative medications were discussed and the patient was instructed to: - Continue prednisone and pyridostigmine as prescribed Review no known heparin intolerance not taking anticoagulant/antiplatelet medication no non-cardiac IEDs present no known esophageal disorders blood transfusion consented -. No resulted type & screen to review COVID-19 Immunization Status Overdue - Covid-19 Vaccine (2022- season) Overdue since 03/09/2023 12/28/2021 Imm Admin: COVID-19 original vaccine, full dose, monovalent (MODERNA) 05/24/2021 Imm Admin: COVID-19 original vaccine, full dose, monovalent (MODERNA) 10/01/2020 Imm Admin: COVID-19 original vaccine, full dose, monovalent (MODERNA) Only the first 3 history entries have been loaded, but more history exists. The patient has the following: ACTIVE PROBLEM LIST Multiple Thyroid Nodules Abnormal Results of Thyroid Function Studies PAST MEDICAL HISTORY Diagnosis Date Myasthenia gravis without exacerbation (HCC) PAST SURGICAL HISTORY Procedure Laterality Date ASPIRATE/INJECT GANGLION CYST(S) TOTAL ABDOM HYSTERECTOMY FAMILY HISTORY Problem Relation Age of Onset other (Meningioma) Mother Lymphoma Mother other (Type 2 Diabetes Mellitus) Father Social History Tobacco Use Smoking status: Never Passive exposure: Never Smokeless tobacco: Never Substance Use Topics Alcohol use: Yes Comment: Rarely Drug use: Never Prior to Admission medications as of 08/18/232205 Medication Sig Last Dose Taking predniSONE (DELTASONE) 10 mg tablet Take 2 tablets by mouth once daily. pyRIDostigmine bromide 30 mg tab Take 1 tablet by mouth four times daily. No medication comments found. ALLERGIES No Known Allergies Objective Pain Assessment: Vitals: There were no vitals taken for this visit. Diagnostic tests reviewed for today's visit: Lab Value Units Date High Low HB No results within date range. HCT No results within date range. WBC No results within date range. PLT No results within date range. NA No results within date range. K No results within date range. GLUC 113 mg/dL 06/02/2023 99 65 BUN No results within date range. CREAT No results within date range. PTSEC No results within date range. INR No results within date range. APTT No results within date range. ALT No results within date range. AST No results within date range. TBILI No results within date range. TSH No results within date range. Lab Value Units Date High Low HCGQT No results within date range. UHCG No results within date range. HCG, BODY* No results within date range. Lab Value Units Date High Low ABORHD No results within date range. ABSCREEN No results within date range. No results found for: HBA1C No results found for this or any previous visit (from the past 8760 hour(s)). Assessment No problem-specific Assessment & Plan notes found for this encounter. ANESTHESIA FINDINGS: Intubation History: No history of difficult intubation Significant Anesthesia Considerations: none Airway History: No history of difficult airway Prepared for Surgery: optimally prepared for surgery. The Following Tests/Procedures Have Been Initiated: Orders Placed This Encounter mupirocin (BACTROBAN) 2 % ointment Sig: Apply a small amount in each nostril using a cotton swab twice the day before surgery and once the morning of surgery. Dispense: 22 g Refill: 0 Order Comments: Supply patient with Q-tips and instruction sheet ASA Class: 3 Planned Anesthetic: general I - PHYSICAL EVALUATION AIRWAY Patient intubated: No. Tracheostomy tube not present Mallampati: III. TM distance: >3 FB. Neck ROM: full ROM without neurological symptoms. Mouth opening: adequate. Short neck: no. Thick neck: no DENTAL Dental findings: teeth intact. II - ANESTHESIA PLAN ASA Score: 3 Anesthetic Plan: general Airway type: ETT Beta Luci Monitoring Plan Post Procedure Analgesic Plan Informed Consent Anesthetic risks, benefits, alternatives, personnel and consent discussed: yes. Patient / Responsible Libertarian agrees to proceed: yes Patient / Surrogate agrees to blood products: Yes Instructions Given to Patient: Instructions located in the after visit summary. Patient given verbal and written preop instructions and voices comprehension and compliance. Signature: Qi Hoskins MD Patient Name: Marnie Arana Date: September 12, 2023 Time: 11:32 AM Pager/Contact #: documented in this encounter 09-12-2023 Note HNO ID: [id number] Author: QI HOSKINS MD Service: ? Author Type: Fellow Type: Progress Notes Filed: 09/12/2023 14:36 Note Text: Cardiothoracic Anesthesiology Preoperative Assessment Service Date: 09/12/2023 Service Time: 11:32 AM Primary Care Physician: Ana María Mckeon MD Subjective Patient Entered Data: Cardiothoracic Surgery Pre-Op Questionnaire 09/06/2023 Previous anesthesia problems No Family history anesthesia problems No Blood consent Yes Esophageal history None Implanted devices No History difficult airway No Airway surgery No Ongoing pain issues No Heparin intolerance No Daily alcohol use No Illicit drug use No Scheduled procedure: Thymectomy Surgeon: Jasiel Turner Scheduled date: 09/13/2023 HPI: 53yo F scheduled for thymectomy. PMH includes: - Thymoma - CT scan shows 4.8 x 3.0 cm lobulated, mediastinal mass near the aortopulmonary window. Asymptomatic. Able to lie flat. - Myasthenia gravis on pyridostigmine 30 mg 4x daily and prednisone (10 mg daily starting 06/16/23, increased to 20 mg daily in Jul 2023). Per neurology note, symptoms began 05/2023 and are limited to double vision primarily in the afternoon, with no evidence of bulbar or proximal weakness. - Per neuro note: No need for pre-surgical optimization (I.e., IVIG or PLEX) for prevention of crisis. Given ocular only symptoms she is at very low risk of post-operative crisis. Today we discussed the anesthetic plan, what to expect, and addressed the patient's questions and concerns regarding anesthesia. Perioperative medications were discussed and the patient was instructed to: - Continue prednisone and pyridostigmine as prescribed Review no known heparin intolerance not taking anticoagulant/antiplatelet medication no non-cardiac IEDs present no known esophageal disorders blood transfusion consented -. No resulted type AND screen to review COVID-19 Immunization Status Overdue - Covid-19 Vaccine () Overdue since 03/09/2023 12/28/2021 Imm Admin: COVID-19 original vaccine, full dose, monovalent (MODERNA) 05/24/2021 Imm Admin: COVID-19 original vaccine, full dose, monovalent (MODERNA) 10/01/2020 Imm Admin: COVID-19 original vaccine, full dose, monovalent (MODERNA) Only the first 3 history entries have been loaded, but more history exists. The patient has the following: ACTIVE PROBLEM LIST Multiple Thyroid Nodules Abnormal Results of Thyroid Function Studies PAST MEDICAL HISTORY Diagnosis Date Myasthenia gravis without exacerbation (HCC) PAST SURGICAL HISTORY Procedure Laterality Date ASPIRATE/INJECT GANGLION CYST(S) TOTAL ABDOM HYSTERECTOMY FAMILY HISTORY Problem Relation Age of Onset other (Meningioma) Mother Lymphoma Mother other (Type 2 Diabetes Mellitus) Father Social History Tobacco Use Smoking status: Never Passive exposure: Never Smokeless tobacco: Never Substance Use Topics Alcohol use: Yes Comment: Rarely Drug use: Never Prior to Admission medications as of 08/18/232205 Medication Sig Last Dose Taking predniSONE (DELTASONE) 10 mg tablet Take 2 tablets by mouth once daily. pyRIDostigmine bromide 30 mg tab Take 1 tablet by mouth four times daily. No medication comments found. ALLERGIES No Known Allergies Objective Pain Assessment: Vitals: There were no vitals taken for this visit. Diagnostic tests reviewed for today's visit: Lab Value Units Date High Low HB No results within date range. HCT No results within date range. WBC No results within date range. PLT No results within date range. NA No results within date range. K No results within date range. GLUC 113 mg/dL 06/02/2023 99 65 BUN No results within date range. CREAT No results within date range. PTSEC No results within date range. INR No results within date range. APTT No results within date range. ALT No results within date range. AST No results within date range. TBILI No results within date range. TSH No results within date range. Lab Value Units Date High Low HCGQT No results within date range. UHCG No results within date range. HCG, BODY* No results within date range. Lab Value Units Date High Low ABORHD No results within date range. ABSCREEN No results within date range. No results found for: HBA1C No results found for this or any previous visit (from the past 8760 hour(s)). Assessment No problem-specific Assessment AND Plan notes found for this encounter. ANESTHESIA FINDINGS: Intubation History: No history of difficult intubation Significant Anesthesia Considerations: none Airway History: No history of difficult airway Prepared for Surgery: optimally prepared for surgery. The Following Tests/Procedures Have Been Initiated: Orders Placed This Encounter mupirocin (BACTROBAN) 2 % ointment Sig: Apply a small amount in each nostril using a cotton swab twice the day before surgery and once the morni (more content not included)... [facility] 09-12-2023 Note HNO ID: [id number] Author: KAILEE BAGLEY RN Service: ? Author Type: Registered Nurse Type: Progress Notes Filed: 09/12/2023 15:48 Note Text: CBC was not done at preop lab appt. and anaesthesia (Dr.Katherine Gato MD) - ok without CBC. Kailee Bagley RN [facility] 09-12-2023 Note HNO ID: [id number] Author: JASIEL TURNER MD Service: ? Author Type: Physician Type: Progress Notes Filed: 09/12/2023 14:50 Note Text: CHART COPY DO NOT DISCARD . Patient here today for TCI visit. . Surgery Bilateral Robotic thymectomy scheduled for 09/13/2023. . Meds allergies reviewed. Latex Allergy: No Anticoag:vitamin d - last dose 09/04/2023 Medport: No Preoperative instructions; NPO after midnight night prior to surgery and Listerine after brushing teeth and Hibiclens Shower. Patient verbalized understanding of instructions. . Last clinic note 08/06/23 per Jasiel Turner M.D. 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 I have discussed a bilateral robotic approach for a total mediastinal thymectomy. Will have to check with her neurologist about the need for plasmapheresis pre-op given the absence of any motor weakness and a normal PFT. Plan: Robotic Thymectomy Echo . Today's visit 09/12/23: CXR: 09/12/2023 IMPRESSION: No acute radiographic abnormality. . PFT: 08/06/23 FEV1 (L) 2.63 1.75 2.40 3.02 109 DLCOunc (ml/min/mmHg) 22.24 15.54 21.71 27.88 102 6MW: NA Cardiac Studies: Echo 09/12/2023 CONCLUSIONS: - Technically difficult exam due to body habitus. - Exam indication: Pre-op non cardiac - The left ventricle is normal in size. Left ventricular systolic function is normal. EF = 65 ? 5% (visual est.) - The right ventricle is normal in size. Right ventricular systolic function is normal. - The patient has not had a prior CC echocardiographic exam for comparison. EK Impression SINUS BRADYCARDIA OTHERWISE NORMAL ECG Ventricular Rate BPM 57 Risk, benefits, and alternatives discussed per Jasiel Turner M.D. HANDP 09/12/2023 per Films CCT 07/03/2023 and CXR 09/12/2023 . Kailee Bagley, RN PHYSICAL EXAM BP 142/69 Pulse 77 Temp (Src) 98.5 (Oral) Resp 14 Ht 5' 3 (1.60m) Wt 211 lb (95.7kg) SpO2 96% BMI 37.39 kg/(m2). Constitutional: Well developed and Obese HEENT: PERRLA Resp: Clear Cardiovascular: Regular rate AND rhythm GI: Soft, round Integumentary: Warm Musculoskeletal: No deformities Neurological/Psychiatric: Oriented to time, place AND person Additional systems reviewed: No additional systems reviewed Jasiel Turner MD [facility] 09-12-2023 History of Present illness Narrative Radiology Service Progress Note PATIENT NAME: Marnie Arana DATE OF SERVICE: September 12, 2023 TIME: 12:11 PM PATIENT IDENTITY VERIFICATION COMPLETED USING TWO (2) IDENTIFIERS: Name and Date of confirmed by patient verbally. FALL SCREENING: Has the patient had 2 falls in the last year or 1 fall with injury or currently using an Ambulatory Assistive Device (Walker, Cane, Wheelchair, Crutches, etc.)? No PATIENT GENDER DATA: Female. status: : No status: NO. PATIENT RELEVANT IMPLANT DATA REVIEWED: Not Applicable PATIENT PRESENTS WITH AN IMPLANTABLE OR ATTACHED SATELLITE TELEVISION INSTALLER: No RADIOLOGY DEPARTMENT: General X-ray: Exam(s) Completed: Chest X-Ray PERIPHERAL IV DATA: Not applicable SIGNED BY: BRODY Neves) September 12, 2023 12:11 PM documented in this encounter 09-12-2023 Note HNO ID: [id number] Author: VENANCIO RAMOS RT (R) Service: Radiology Author Type: Technologist Type: Progress Notes Filed: 09/12/2023 12:11 Note Text: Radiology Service Progress Note PATIENT NAME: Marnie Arana DATE OF SERVICE: September 12, 2023 TIME: 12:11 PM PATIENT IDENTITY VERIFICATION COMPLETED USING TWO (2) IDENTIFIERS: Name and Date of confirmed by patient verbally. FALL SCREENING: Has the patient had 2 falls in the last year or 1 fall with injury or currently using an Ambulatory Assistive Device (Walker, Cane, Wheelchair, Crutches, etc.)? No PATIENT GENDER DATA: Female. status: : No status: NO. PATIENT RELEVANT IMPLANT DATA REVIEWED: Not Applicable PATIENT PRESENTS WITH AN IMPLANTABLE OR ATTACHED SATELLITE TELEVISION INSTALLER: No RADIOLOGY DEPARTMENT: General X-ray: Exam(s) Completed: Chest X-Ray PERIPHERAL IV DATA: Not applicable SIGNED BY: BRODY Neves) September 12, 2023 12:11 PM [facility] 09-05-2023 History of Present illness Narrative Images from the original note were not included. [address] [place] [address] Subjective: Marnie Arana is a 53 y.o. female who presents for an Annual Wellness exam. -Patient is a 53 year old female presenting for a wellness exam. Patient was recently diagnosed with a thymoma and myasthenia gravis. Patient to have thymoma removed on September 12. Patient has no complaints today other than double vision which is being treated. Patient reports poor diet due to stress and tries to walk 3-4 times per week. No other complaints at this time. Annual Exam Pertinent negatives include no abdominal pain, arthralgias, chest pain, congestion, coughing, fatigue, fever, joint swelling, nausea, neck pain, numbness, rash, sore throat, vomiting or weakness. The following portions of the patient's history were reviewed and updated as appropriate: medications, allergies, past medical history, past surgical history, social history, family history and immunization history Vitals: Vitals: 09/05/23 1454 BP: 124/70 Pulse: 64 Resp: 18 SpO2: 97% Weight: 97.5 kg (215 lb) Height: 165.1 cm (5' 5 ) History: Patient Active Problem List Diagnosis Date Noted Myasthenia gravis ([facility]) 06/13/2023 History reviewed. No pertinent past medical history. Past Surgical History: Procedure Laterality Date SECTION HYSTERECTOMY History reviewed. No pertinent family history. Social History Tobacco Use Smoking status: Never Smokeless tobacco: Never Substance Use Topics Alcohol use: No Allergies: Allergies Allergen Reactions No Known Drug Allergies Immunization History Administered Date(s) Administered COVID-19, mRNA, LNP-S, PF, 100mcg/0.5mL Dose 09/01/2020, 10/01/2020, 05/24/2021, 12/28/2021 Influenza, Injectable, Mdck, Preservative Free, Quad 05/13/2019 Review of Systems: Review of Systems Constitutional: Negative for fatigue, fever and unexpected weight change. HENT: Negative for congestion, ear pain, sinus pressure, sinus pain and sore throat. Eyes: Positive for visual disturbance. Negative for photophobia, pain and discharge. Respiratory: Negative for cough and shortness of breath. Cardiovascular: Negative for chest pain, palpitations and leg swelling. Gastrointestinal: Negative for abdominal pain, diarrhea, nausea and vomiting. Endocrine: Negative for polydipsia, polyphagia and polyuria. Genitourinary: Negative for difficulty urinating, frequency, hematuria and urgency. Musculoskeletal: Negative for arthralgias, gait problem, joint swelling and neck pain. Skin: Negative for pallor and rash. Neurological: Negative for dizziness, weakness, light-headedness and numbness. Psychiatric/Behavioral: Negative for sleep disturbance. The patient is not nervous/anxious. Objective: BP 124/70 Pulse 64 Resp 18 Ht 165.1 cm (5' 5 ) Wt 97.5 kg (215 lb) SpO2 97% BMI 35.78 kg/m Physical Exam Constitutional: Appearance: Normal appearance. She is well-developed. She is obese. HENT: Head: Normocephalic and atraumatic. Right Ear: Tympanic membrane, ear canal and external ear normal. Left Ear: Tympanic membrane, ear canal and external ear normal. Nose: Nose normal. Mouth/Throat: Mouth: Mucous membranes are moist. Pharynx: Oropharynx is clear. Eyes: Extraocular Movements: Extraocular movements intact. Conjunctiva/sclera: Conjunctivae normal. Pupils: Pupils are equal, round, and reactive to light. Cardiovascular: Rate and Rhythm: Normal rate and regular rhythm. Pulses: Normal pulses. Heart sounds: Normal heart sounds. Pulmonary: Effort: Pulmonary effort is normal. Breath sounds: Normal breath sounds. Abdominal: General: Bowel sounds are normal. Palpations: Abdomen is soft. Musculoskeletal: General: Normal range of motion. Cervical back: Normal range of motion. Skin: General: Skin is warm and dry. Capillary Refill: Capillary refill takes less than 2 seconds. Neurological: General: No focal deficit present. Mental Status: She is alert and oriented to person, place, and time. Psychiatric: Mood and Affect: Mood normal. Behavior: Behavior normal. Assessment/Plan: Marnie was seen today for annual exam. Diagnoses and all orders for this visit: Wellness examination Myasthenia gravis ([facility]) Plan Outpatient Medications Prior to Visit Medication Sig Dispense Refill predniSONE (DELTASONE) 10 mg tablet Take 2 tablets (20 mg total) by mouth in the morning. pyRIDostigmine bromide 30 mg tablet Take 1 tablet by mouth in the morning and 1 tablet at noon and 1 tablet in the evening and 1 tablet before bedtime. No facility-administered medications prior to visit. Follow Up: 1.)Diet and exercise discussed. 2.)Patient denies the need for refills. 3.)Colonoscopy completed January of 2021 4.)Mammogram completed 05/2024. 5.)Labs not due 6.)Patient to present to for thymectomy. SO Briones 09/05/23 1530 documented in this encounter [employer] 08-28-2023 Miscellaneous Notes Radiology Service Progress Note DATE OF SERVICE: August 28, 2023 TIME: 10:29 AM PATIENT IDENTITY VERIFICATION COMPLETED USING TWO (2) STANDARD IDENTIFIERS: Name and Date of confirmed by patient verbally and Name and Date of confirmed by identification band. FALL SCREENING: Has the patient had 2 falls in the last year or 1 fall with injury or currently using an Ambulatory Assistive Device (Walker, Cane, Wheelchair, Crutches, etc.)? No PATIENT GENDER DATA: Female. status: : No status: NO. PATIENT RELEVANT IMPLANT DATA REVIEWED: Yes PATIENT PRESENTS WITH AN IMPLANTABLE OR ATTACHED SATELLITE TELEVISION INSTALLER: No ALLERGIES: Reviewed and unchanged CONTRAST ALLERGY: NO. EXAM: MRI - CONTRAST TYPE: GROUP II PERIPHERAL IV DATA: Ambulatory: A peripheral IV was started in the Right with a Angio cath: 24 gauge. RADIOLOGY DEPARTMENT: MR; Exam(s) Completed: Body: Liver (routine) SIGNATURE: Roxanne Grigsby RT(R), RT Angelica(R) PATIENT NAME: Marnie Arana DATE: August 28, 2023 TIME: 10:29 AM documented in this encounter 08-27-2023 Note HNO ID: [id number] Author: ?, ?, ? Service: ? Author Type: ? Type: Progress Notes Filed: 08/27/2023 15:21 Note Text: Pt is scheduled for US and labs on 09/27/23. [facility] 08-24-2023 Note HNO ID: [id number] Author: KANDI PRICE RN Service: ? Author Type: Registered Nurse Type: Progress Notes Filed: 08/24/2023 16:13 Note Text: Surgery : Robotic b/l thymectomy OR 09/13/2023 TCI with cxr, EKG, echo, labs, 09/12/2023 Medications : Hold vitamin D 7 days prior to surgery , along with any over-the counter vitamins, supplements or NSAIDS (denies taking) Transfusion: None LOS 1-2 days Diet : n/a C 2.5 -3 Neurology cleared David Dsouza MD No preop treatment needed - 07/16/2023 Preop and post op expectations reviewed Recovery 4 weeks FMLA discussed, to fax forms to office for completion [facility] 08-24-2023 History of Present illness Narrative Surgery : Robotic b/l thymectomy OR 09/13/2023 TCI with cxr, EKG, echo, labs, 09/12/2023 Medications : Hold vitamin D 7 days prior to surgery , along with any over-the counter vitamins, supplements or NSAIDS (denies taking) Transfusion: None LOS 1-2 days Diet : n/a C 2.5 -3 Neurology cleared David Dsouza MD No preop treatment needed - 07/16/2023 Preop and post op expectations reviewed Recovery 4 weeks FMLA discussed, to fax forms to office for completion documented in this encounter 08-17-2023 Note HNO ID: [id number] Author: ROC MARRERO MD Service: ? Author Type: Physician Type: Progress Notes Filed: 08/18/2023 22:09 Note Text: VIRTUAL VISIT PROGRESS NOTE This is a virtual visit using [employer] Zoom Video Visit. It required patient-provider interaction for the medical decision making as documented below. I have communicated my name and active licensure. The patient's identity and physical location were verified at the time of this visit. Either the patient or their legal employee's representative has been informed of the risks and benefits of -- and alternatives to -- treatment through a remote evaluation and consents to proceed with the evaluation remotely. Marnie Arana is a 53 year old female seen for thyroid nodules. HISTORY REVIEWED (electronic chart updated): PAST MEDICAL HISTORY Diagnosis Date Myasthenia gravis without exacerbation (HCC) PAST SURGICAL HISTORY Procedure Laterality Date ASPIRATE/INJECT GANGLION CYST(S) TOTAL ABDOM HYSTERECTOMY FAMILY HISTORY Problem Relation Age of Onset other (Meningioma) Mother Lymphoma Mother other (Type 2 Diabetes Mellitus) Father Social History Tobacco Use Smoking status: Never Passive exposure: Never Smokeless tobacco: Never Substance Use Topics Alcohol use: Yes Comment: Rarely Drug use: Never Current Outpatient Medications Medication Sig pyRIDostigmine bromide 30 mg tab Take 1 tablet by mouth four times daily. predniSONE (DELTASONE) 10 mg tablet Take 2 tablets by mouth once daily. No current facility-administered medications for this visit. ALLERGIES No Known Allergies HPI: 53 yo female patient with hx of MG, CT chest in June showed 4.8 cm mediastinal mass c/w Thymoma, In addition, multiple subcm thyroid nodules were noted. US thyroid was not ordered. She saw Dr Turner, thoracic surgery, with plan for robotic thymectomy. Of note has been on Prednisone 20 mg daily since June as part of MG treatment. No hx of head or neck irradiation. No neck complaints. No hx of thyroid nodules/cancer in the family. No hx of hypo or hyperthyroidism. TFts- May 2023, nl TSH and free T3, slightly low free T4. No sx of hypo or hyperthyroidism. Double vision associated with MG got better, maurisio with prism in the eyeglasses for a month, but then worse again. Meds are being adjusted. Not on Biotin/hair nail skin supplement. PHYSICAL EXAMINATION: VIDEO EXAM: (if completed, performed via video enabled technology) GENERAL: alert and appropriate, in no distress, well-hydrated, well nourished, and happy, smiling, interactive No ss of [place]. NECK: full ROM, no cervical LNs noted no thyroid enlargement/thyroid nodules with swallowing. LABS: IMAGING: STUDY: CT CHEST W CONT INDICATION: Myasthenia gravis (CMS-HCC). TECHNIQUE: * Contiguous axial CT images through the chest were obtained with intravenous contrast. Reformats were performed. * All CT scans at this facility use dose modulation, iterative reconstruction, and/or weight based dosing when appropriate to reduce radiation dose to as low as reasonably achievable. FINDINGS: Multiple small subcentimeter thyroid nodules. No convincing supraclavicular, axillary or hilar lymph node. 4.8 x 3.0 cm lobulated, mediastinal mass near the aortopulmonary window, which may reflect a thymoma in a patient with myasthenia gravis. Nonaneurysmal aorta. Mild cardiomegaly. No pericardial effusion. No significant coronary artery atherosclerosis. Tiny hiatal hernia. Airways are patent. No focal consolidation, suspicious pulmonary nodules, pulmonary edema, pleural effusions or pneumothorax. Discontinuous peripheral nodular enhancement of a right hepatic lobe lesion suggests a hepatic hemangioma. A few additional foci of nonspecific enhancement throughout the liver. No acute soft tissue or bone abnormality. IMPRESSION: * 4.8 cm lobulated anterior mediastinal mass, favored to reflect a thymoma in a patient with myasthenia gravis. Consider PET/CT to help delineate and exclude a possible thymic carcinoma. * Suspected hepatic hemangioma. MR abdomen may be considered for confirmatory assessment. * Multiple small subcentimeter thyroid nodules for which no additional evaluation is currently recommended. THIS REPORT CONTAINS A SIGNIFICANT RESULT AND/OR RECOMMENDATION, WHICH REQUIRES THE ATTENTION OF THE LICENSED CAREGIVER RESPONSIBLE FOR THIS PATIENT. THEREFORE, I SPECIFICALLY DESIGNATED THIS REPORT TO BE TELEPHONED BY THE RADIOLOGY DEPARTMENT. FINDINGS WERE INSTRUCTED TO BE CALLED TO THE CLINICAL SERVICE ON 07/03/2023 3:58 PM Finalized by Ata Cota on 07/03/2023 4:08 PM Procedure Note Ata Cota MD - 07/03/2023 STUDY: CT CHEST W CONT INDICATION: Myasthenia gravis ([facility]). TECHNIQUE: * Contiguous axial CT images through the chest were obtained w (more content not included)... [facility] 08-06-2023 Note HNO ID: [id number] Author: JASIEL TURNER MD Service: ? Author Type: Physician Type: Progress Notes Filed: 08/06/2023 14:05 Note Text: [facility] THORACIC SURGERY OUTPATIENT CONSULT NOTE Marnie Arana [id number] Requesting Provider: Dr. 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 I have discussed a bilateral robotic approach for a total mediastinal thymectomy. Will have to check with her neurologist about the need for plasmapheresis pre-op given the absence of any motor weakness and a normal PFT. Plan: Robotic Thymectomy Echo SIGNATURE: Jasiel Turner MD PAGER: [id number] DATE of SERVICE: 08/06/2023 TIME of SERVICE: 930 AM HPI: Marnie Arana is a 53 year old White female referred by Dr. Dsouza for an opinion regarding management of thymoma. She is currently having double vision. (document at least 4 of these elements) Quality: stable Severity: moderate Timing: continuously Context: at rest and during activity ECOG Score: 0 Living arrangement: Lives with family/friend Functional status: Independent Unintentional weight loss over last 3 months: No PAST MEDICAL HISTORY Diagnosis Date Myasthenia gravis without exacerbation (HCC) PAST SURGICAL HISTORY Procedure Laterality Date ASPIRATE/INJECT GANGLION CYST(S) TOTAL ABDOM HYSTERECTOMY FAMILY HISTORY Problem Relation Age of Onset other (Meningioma) Mother Lymphoma Mother other (Type 2 Diabetes Mellitus) Father Social History Tobacco Use Smoking status: Never Passive exposure: Never Smokeless tobacco: Never Substance Use Topics Alcohol use: Yes Comment: Rarely Drug use: Never ALLERGIES No Known Allergies Asbestos Exposure No PHYSICAL EXAM There were no vitals taken for this visit. Neck: No masses Resp: Clear Cardiovascular: Regular rate AND rhythm GI: Soft Neurological/Psychiatric: Oriented to time, place AND person Additional relevant findings: none DATA: Radiology: CCT: IMPRESSION: * 4.8 cm lobulated anterior mediastinal mass, favored to reflect a thymoma in a patient with myasthenia gravis. Consider PET/CT to help delineate and exclude a possible thymic carcinoma. * Suspected hepatic hemangioma. MR abdomen may be considered for confirmatory assessment. * Multiple small subcentimeter thyroid nodules for which no additional evaluation is currently recommended. I have personally reviewed the following images/data: CT scan and Labs Outside Paper Medical Records Review personally performed by: MD Jasiel Reyes MD [facility] 08-06-2023 Note HNO ID: [id number] Author: EMIL FREEMAN RRT Service: ? Author Type: Registered Resp Therapist Type: Progress Notes Filed: 08/06/2023 07:33 Note Text: PULM FUNCTION SMARTBLOCK: Provider: Jasiel Turner MD Spirometry: 1 DLCO: 1 System: MC5 - [id number] [facility] 07-16-2023 Note HNO ID: [id number] Author: QUINTEN RUIZ MD Service: ? Author Type: Fellow Type: Progress Notes Filed: 07/17/2023 09:20 Note Text: Neurological [facility] New Patient Visit Note Consultation requested by Dr. Claire De Los Santos for an opinion regarding myasthenia gravis. My final recommendations will be communicated back to the requesting physician by way of shared Medical record or letter to requesting physician via US mail. History of Present Illness: Debra Arana is a 53 year old right-handed female with no chronic medical problems presenting for evaluation of impaired vision. She was accompanied by her , who provided collateral information. Symptoms began on 05/2023. She noticed that in the evening, her phone screen appeared blurry. After ~1 week, she noticed intermittent double vision. Is characterized by images appearing to be stacked vertically on top of each other in the extreme directions of vision. She will sometimes see it when looking straight forward, but it is not prominent. Symptoms primarily occur in the afternoon around 3 PM. Denies ptosis, voice changes, extremity weakness, dysphagia or dyspnea. She has remained independent with her ADLs. She otherwise has not had any symptoms other than those listed above. Denies recent illnesses, previous transient neurologic symptoms, or sleep disturbances. She is up to date on all of her routine cancer screenings. Has lost ~15 lbs in the past few months, but has made changes to her diet in an effort to lose weight intentionally. She saw her rn child in a few days after the onset of double vision in May 2023. He diagnosed her with vertical heterophoria and was given prism glasses, which improved her vision significantly. As part of his workup, a CT of her brain orbits completed that showed a tortuous left optic nerve but no other abnormal findings. Serum testing was significant for positive acetylcholine receptor binding antibodies and she was referred to a neurologist. She was seen by Dr. Claire De Los Santos at [facility] and was diagnosed with myasthenia gravis. Was started on pyridostigmine 30mg TID and prednisone 10mg daily in June 2023. She had a CT scan of her chest completed that showed the presence of a possible thymomatous mass and she was then referred to for further evaluation. She has tolerated both of those medications without any side effects. She wears glasses almost constantly and because they helped her symptoms immediately, she is not sure if starting the medications have helped. Does not recall exactly when she last had double vision. MG - Activities of Daily Living (MG-ADL) 1. Talkin=Normal 2. Chewin=Normal 3. Swallowin=Normal 4. Breathin=Normal 5. Impairment of ability to brush teeth or comb hair: 0=None 6. Impairment of ability to arise from a chair: 0=None 7. Double vision: 0=None 8. Eyelid droop: 0=None MG-ADL Total Score: 0 History reviewed. No pertinent past medical history. PAST SURGICAL HISTORY Procedure Laterality Date ASPIRATE/INJECT GANGLION CYST(S) TOTAL ABDOM HYSTERECTOMY Medications: Current Outpatient Medications Medication Sig predniSONE (DELTASONE) 10 mg tablet Take 1 tablet by mouth every afternoon. pyRIDostigmine bromide 30 mg tab Take 1 tablet by mouth three times a day. No current facility-administered medications for this visit. Allergies: See updated allergies documented below. 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 EYES: No eye pain or orbital swelling reported. HEENT: No hearing changes or vertiginous symptoms indicated. No history of nose bleeds reported. RESPIRATORY: No reported cough, sputum, wheezing and dyspnea. CARDIOVASCULAR: Negative for significant chest pain, and palpitations per report. GI: Negative for significant abdominal discomfort, blood in stools or black stools reported. No recent reported change in bowel habits. : No reported history of incontinence. No dark/cola colored urine reported. MUSCLOSKELETAL: No history of significant joint pain or swelling, or myalgias reported. SKIN: Negative for pertinent lesions, rash, and itching per report. HEMATOLOGY/ONCOLOGY: Negative for reported prolonged bleeding, bruising easily, and swollen nodes. ENDOCRINE: Negative for reported significant cold or heat intolerance, no reported goitrous neck swelling or polydipsia PSYCH: No reported depression or anxiety symptoms. No reported SI or HI. NEUR (more content not included)... [facility] 01-19-2021 Note OPERATIVE NOTE OPERATION DATE: 01-19-21 ANESTHETIC:Monitored anesthesia care. PREOPERATIVE DIAGNOSIS:Colorectal screening. POSTOPERATIVE DIAGNOSIS:Normal colonoscopy to the cecum. PROCEDURE NAME:Colonoscopy to the cecum. ESTIMATED BLOOD LOSS: Zero. INDICATIONS AND CONSENT: The patient is a 50 year-old female who presents for colorectal screening, Indications, risks, benefits, and alternatives of proceeding with colonoscopy were explained extensively to the patient including the risk of bleeding, colon perforation, or anesthetic complications. All of her questions were answered and informed consent was obtained. PROCEDURE: The patient was brought to the OR and placed in the left lateral decubitus position. Monitored anesthesia care was provided. Rectal exam was performed which showed no masses or blood. The scope was inserted into the anal canal, under direct visualization it was advanced. With the aid of abdominal compression it was advanced to the cecum where cecal markings were clearly identified. Upon withdrawal of the scope mucosal surfaces were carefully examined. There were no mass lesions or polyps, no inflammatory changes or ulcerations, no significant diverticulosis. The scope was retroflexed in the anal canal, there was no significant hemorrhoidal disease. The scope was then withdrawn, the patient tolerated the procedure well and was sent to the Recovery Room in good condition. Followup colonoscopy should be in 10 years for screening. cc:Dr. Braun. [facility] Signed and Approved by: DR ODELL JOHNSON . 01/21/2021 08:06:00 [facility] 01-13-2021 Note Chief Complaint referral for colonsocopy HPI Staff 50 year old female presents on consultation from Dr. Monae for screening colonoscopy. Denies abdominal or rectal pain. No rectal bleeding or change in bowel habits. No unexplained weight loss. Never had colonoscopy in the past. No family history of colon cancer. History of Present Illness 50 yo female referred for colorectal screening; denies change in bms or blood in stools, no abdominal complaints; no previous endoscopy; abdominal operations significant for hysterectomy; denies asa or NSAID use, no SBE prophylaxis, no FMhx of GI malignancy or IBD. no tobacco use.. Review of Systems PHQ Score Initial Depression Screen Score: 0 ROS - Provider Constitutional: no fever, no sweats, no weight loss. Eyes: no glasses, no blurred vision, no visual loss. ENMT: no dentures, no hoarseness, no swallowing difficulties, no hearing loss, no ear infection(s), no nose bleeds. Cardiovascular: normal blood pressure, no chest pain, regular heartbeat, no heart murmur. Respiratory: no shortness of breath, no cough, no asthma, no wheezing. Gastrointestinal: no nausea, no vomiting, no diarrhea, no constipation, no blood in stool, no change in bowel habits, no abdominal pain, no hepatitis. Genitourinary: no kidney stones, no urine infection, no dysuria. Musculoskeletal: no pain, no weakness. Skin: no changing moles, no rash, no skin lumps. Neurologic: no seizures, no epilepsy, no headache. Psychiatric: no emotional or psychiatric problem. Heme/Lymph: no bleeding problems, no anemia, no blood clots, no transfusions. Allergy/Immunologic: no swollen lymph nodes/glands, no IV drug abuse. Other: Additional ROS info: Except as noted in the above Review of Systems and in the History of Present Illness, all other systems have been reviewed and are negative or noncontributory. s Physical Exam Vitals & Measurements T: 36.5 ?C (Temporal Artery) HR: 72(Peripheral) RR: 16 BP: 138/100 HT: 162.56 cm HT: 162.6 cm WT: 97.1 kg WT: 97.1 kg BMI: 36.74 HEENT: normal conjunctiva, sclera clear, no scleral icterus, EOM intact, PERRLA, oral mucosa moist without lesions. Neck: trachea midline, no mass, symmetric, no thyromegaly or nodules, no adenopathy Respiratory: lungs CTA, respirations non labored. Cardiovascular: regular rate and rhythm, no murmur, no pedal edema or varicosities. Gastrointestinal: soft, non distended, no tenderness, no masses, no palpable hernias, diastasis recti no, no hepatosplenomegaly; normal bs Lymphatic: no cervical adenopathy, no axillary adenopathy, Musculoskeletal: normal gait, digits and nails without infection, nodes, cyanosis, clubbing. Skin: no rashes, no lesions, no ulcers, no subcutaneous nodules, induration. Psychiatric/Neuro: oriented to time, place, person, judgement normal, affect appropriate for age, insight intact, no focal deficits. Tests: review of old records completed, Discussed surgical options, risks, and possible complications with patient. Assessment/Plan 1. Screening for malignant neoplasm of colon (Z12.11: Encounter for screening for malignant neoplasm of colon) plan colonoscopy under anesthesia at [facility], informed consent obtained. Follow-up No qualifying data available Patient Education Colonoscopy Problem List/Past Medical History Ongoing BMI 36.0-36.9,adult Screening for malignant neoplasm of colon Historical Granulation tissue Vaginal polyp Procedure/Surgical History Arthroscopy of knee, Ectopic , Ganglion cyst of left wrist, Total hysterectomy via vaginal approach. Medications No active medications Allergies No Known Allergies Social History Alcohol - Denies Alcohol Use, 01/12/2021 Tobacco - Denies Tobacco Use, 01/12/2021 Never (less than 100 in lifetime) Tobacco Use:. Never Smokeless Tobacco Use:., 01/13/2021 Family History Primary malignant neoplasm of brain: Mother. Immunizations Vaccine Date Status SARS-CoV-2 (COVID-19) mRNA-1273 vaccine 10/01/2020 Recorded SARS-CoV-2 (COVID-19) mRNA-1273 vaccine 09/01/2020 Recorded [facility] Comment on above: Result Comment: Elec tronically Signed By: ALEX CARVER, Odell Ellis.gracy\Date and Time Signed: 01/13/21 10:26 EDT Evaluation note Diagnosis Myasthenia gravis (HCC)- Primary Myasthenia gravis without exacerbation Preoperative testing Preoperative examination, unspecified Pre-procedure lab exam Pre-procedural laboratory examination documented in this encounter Evaluation note* Diagnosis Mediastinal mass Swelling, mass, or lump in chest Lesion of liver Other specified disorders of liver Myasthenia gravis (HCC) Myasthenia gravis without exacerbation documented in this encounter Evaluation note* Diagnosis Wellness examination- Primary Myasthenia gravis (CMS-HCC) Myasthenia gravis without exacerbation [facility] Encounter for preoperative anesthesiology assessment for thoracic surgery- Primary Myasthenia gravis (HCC) Myasthenia gravis without exacerbation documented in this encounter Evaluation note* Diagnosis Myasthenia gravis (HCC)- Primary Myasthenia gravis without exacerbation Benign neoplasm of thymus Myasthenia gravis (HCC) Myasthenia gravis without exacerbation [facility] Myasthenia gravis (HCC) Myasthenia gravis without exacerbation Preoperative testing Preoperative examination, unspecified Pre-procedure lab exam Pre-procedural laboratory examination documented in this encounter Evaluation note* Diagnosis Myasthenia gravis (HCC)- Primary Myasthenia gravis without exacerbation Thymoma Benign neoplasm of thymus [facility] Diagnosis Follow-up examination following surgery Follow-up examination, following unspecified surgery documented in this encounter Evaluation note* Diagnosis Multiple thyroid nodules Nontoxic multinodular goiter documented in this encounter Evaluation note* Diagnosis Thymoma- Primary Benign neoplasm of thymus documented in this encounter Evaluation note* Diagnosis Thymoma- Primary Benign neoplasm of thymus documented in this encounter Evaluation note* Diagnosis Thymoma- Primary Benign neoplasm of thymus documented in this encounter Evaluation note* Diagnosis 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 thymus Myasthenia gravis (HCC) Myasthenia gravis without exacerbation documented in this encounter Evaluation note* Diagnosis Myasthenia gravis (HCC) Myasthenia gravis without exacerbation Thymoma Benign neoplasm of thymus documented in this encounter Evaluation note* Diagnosis Myasthenia gravis (HCC)- Primary Myasthenia gravis without exacerbation documented in this encounter Evaluation note* Diagnosis Thymoma- Primary Benign neoplasm of thymus documented in this encounter Evaluation note* Diagnosis Thymoma- Primary Benign neoplasm of thymus documented in this encounter Evaluation note* Diagnosis Thymoma- Primary Benign neoplasm of thymus [facility] Myasthenia gravis (HCC) Myasthenia gravis without exacerbation Postoperative pain Other acute postoperative pain Thymoma Benign neoplasm of thymus documented in this encounter Evaluation note* Diagnosis Thymoma- Primary Benign neoplasm of thymus documented in this encounter Evaluation note* Diagnosis Thymoma- Primary Benign neoplasm of thymus [facility] Diagnosis Myasthenia gravis (HCC)- Primary Myasthenia gravis without exacerbation [facility] Diagnosis Malignant neoplasm of thymus (HCC) Malignant neoplasm of thymus [facility] Attachments The following attachments cannot be sent through Care Everywhere. * Myasthenia gravis (Czech) * Yearly Physical for Adults (Czech) documented in [facility] CenterInstructionsNot on file documented in this encounterProCrystal Clinic Orthopedic CenterReason for referral (narrative)* Outpatient Procedure (Routine) - Pending Review Specialty Diagnoses / Procedures Referred By Harriet garcia [facility] [place] [facility]oses Myasthenia gravis (HCC) Preoperative testing Pre-procedure lab exam Procedures ECHO ECHO TTHRC R-T 2D W/WOM-MODE COMPL SPEC&COLR D Jasiel Turner MD [address] [place] [address] [facility] [address] [address] Referral ID Status Reason Start Date Expiration Date Visits Requested Visits Authorized [id number] Pending Review Auto-Generat ed Referral 08/24/2023 08/23/2024 1 1 * Outpatient Procedure (Urgent) - Pending Review Specialty Diagnoses / Procedures Referred By Harriet garcia Referred To Contact [facility] Diagnoses Myasthenia gravis (HCC) Preoperative testing Pre-procedure lab exam Procedures ECG COMPLETE ECG ROUTINE ECG W/LEAST 12 LDS W/I&R Jasiel Turner MD [address] [place] [address] [address] Referral ID Status Reason Start Date Expiration Date Visits Requested Visits Authorized [id number] Pending Review Auto-Generat ed Referral 08/24/2023 08/23/2024 1 1 [facility] for visit Narrative* Diagnostic Procedure Only (Routine) - Closed Specialty Diagnoses / Procedures Referred By Harriet garcia Referred To Contact [facility] Diagnoses Multiple thyroid nodules Procedures US THYROID/PARATHYROID US SOFT TISSUE HEAD & NECK REAL TIME IMGE Roc Johns MD [address] [facility] [place] [address] [facility] Referral ID Status Reason Start Date Expiration Date V isits Requested Visits Authorized [id number] Closed Auto-Generate d Referral 08/17/2023 09/15/2024 1 1 Summary Purpose Family History No Family History Records FoundNo Family History Records FoundNo Family History Records FoundNo Family History Records FoundNo Family History Records FoundNo Family History Records Found Advance Directives Documents on File Type Date 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 Advance Directive(s) 09/12/2023 2:51 PM Documents on File Type Date Recorded 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 Advance Directive(s) 09/12/2023 2:51 PM Reason for Referral Specialty Diagnoses / Procedures Referred By Contac t Referred To Contact [facility] Diagnoses Mediastinal mass Lesion of liver Procedures MRI LIVER WO/W IVCON MRI ABDOMEN W/O & W/CONTRAST MATERIAL Jasiel Turner MD [address] [place] [address] [facility] [place] [address] Referral ID Status Reason Start Date Expiration Date V isits Requested Visits Authorized [id number] Closed Auto-Generate d Referral 07/13/2023 08/11/2024 1 1 Specialty Diagnoses / Procedures Referred By Contac t Referred To Contact CT IMAGING Diagnoses Malignant neoplasm of thymus (HCC) Procedures CT CHEST W IVCON DIAGNOSTIC COMPUTED TOMOGRAPHY THORAX W/CONTRAST Zeferino Desouza MD [address] [place] [address] [place] [address] [facility] [place] [address] Referral ID Status Reason Start Date Expiration Date V isits Requested Visits Authorized [id number] Closed Auto-Generate d Referral 10/11/2023 11/09/2024 1 1 Specialty Diagnoses / Procedures Referred By Contac t Referred To Contact CT IMAGING Diagnoses Malignant neoplasm of thymus (HCC) Procedures CT CHEST W IVCON DIAGNOSTIC COMPUTED TOMOGRAPHY THORAX W/CONTRAST Kandy Vallecillo APRN.ISABELL [address] [place] [id number] [facility] Referral ID Status Reason Start Date Expiration Date Visits Requested Visits Authorized [id number] Authorized Auto-Generat ed Referral 10/29/2023 11/27/2024 1 1 Additional Source Comments INFORMATION SOURCE (unrecogn ized section and content) DATE CREATED AUTHOR 04/22/2021 Julian Cesar [facility] DATE CREATED AUTHOR AUTHOR'S ORGANIZ ATION 06/29/2021 [facility] DATE CREATED AUTHOR AUTHOR'S ORGANIZ ATION 08/29/2023 [facility] DATE CREATED AUTHOR AUTHOR'S ORGANIZ ATION 01/25/2024 [facility] DATE CREATED AUTHOR AUTHOR'S ORGANIZ ATION 02/08/2024 [facility] DATE CREATED AUTHOR AUTHOR'S ORGANIZ ATION 03/05/2024 [facility] Source Comments (unrecognize d section and content) In the event this informatio n is protected by the Federal Confidentiality of Alcohol and Drug Abuse Patient Records regulations: The Federal rules restrict any use of the information to criminally investigate or prosecute any alcohol or drug abuse patient.In the event this information is protected by the Federal Confidentiality of Alcohol and Drug Abuse Patient Records regulations: The Federal rules restrict any use of the information to criminally investigate or prosecute any alcohol or drug abuse patient.In the event this information is protected by the Federal Confidentiality of Alcohol and Drug Abuse Patient Records regulations: The Federal rules restrict any use of the information to criminally investigate or prosecute any alcohol or drug abuse patient.In the event this information is protected by the Federal Confidentiality of Alcohol and Drug Abuse Patient Records regulations: The Federal rules restrict any use of the information to criminally investigate or prosecute any alcohol or drug abuse patient.In the event this information is protected by the Federal Confidentiality of Alcohol and Drug Abuse Patient Records regulations: The Federal rules restrict any use of the information to criminally investigate or prosecute any alcohol or drug abuse patient.In the event this information is protected by the Federal Confidentiality of Alcohol and Drug Abuse Patient Records regulations: The Federal rules restrict any use of the information to criminally investigate or prosecute any alcohol or drug abuse patient.In the event this information is protected by the Federal Confidentiality of Alcohol and Drug Abuse Patient Records regulations: The Federal rules restrict any use of the information to criminally investigate or prosecute any alcohol or drug abuse patient.In the event this information is protected by the Federal Confidentiality of Alcohol and Drug Abuse Patient Records regulations: The Federal rules restrict any use of the information to criminally investigate or prosecute any alcohol or drug abuse patient.In the event this information is protected by the Federal Confidentiality of Alcohol and Drug Abuse Patient Records regulations: The Federal rules restrict any use of the information to criminally investigate or prosecute any alcohol or drug abuse patient.In the event this information is protected by the Federal Confidentiality of Alcohol and Drug Abuse Patient Records regulations: The Federal rules restrict any use of the information to criminally investigate or prosecute any alcohol or drug abuse patient.In the event this information is protected by the Federal Confidentiality of Alcohol and Drug Abuse Patient Records regulations: The Federal rules restrict any use of the information to criminally investigate or prosecute any alcohol or drug abuse patient.In the event this information is protected by the Federal Confidentiality of Alcohol and Drug Abuse Patient Records regulations: The Federal rules restrict any use of the information to criminally investigate or prosecute any alcohol or drug abuse patient.In the event this information is protected by the Federal Confidentiality of Alcohol and Drug Abuse Patient Records regulations: The Federal rules restrict any use of the information to criminally investigate or prosecute any alcohol or drug abuse patient.In the event this information is protected by the Federal Confidentiality of Alcohol and Drug Abuse Patient Records regulations: The Federal rules restrict any use of the information to criminally investigate or prosecute any alcohol or drug abuse patient.In the event this information is protected by the Federal Confidentiality of Alcohol and Drug Abuse Patient Records regulations: The Federal rules restrict any use of the information to criminally investigate or prosecute any alcohol or drug abuse patient.In the event this information is protected by the Federal Confidentiality of Alcohol and Drug Abuse Patient Records regulations: The Federal rules restrict any use of the information to criminally investigate or prosecute any alcohol or drug abuse patient.In the event this information is protected by the Federal Confidentiality of Alcohol and Drug Abuse Patient Records regulations: The Federal rules restrict any use of the information to criminally investigate or prosecute any alcohol or drug abuse patient.In the event this information is protected by the Federal Confidentiality of Alcohol and Drug Abuse Patient Records regulations: The Federal rules restrict any use of the information to criminally investigate or prosecute any alcohol or drug abuse patient.In the event this information is protected by the Federal Confidentiality of Alcohol and Drug Abuse Patient Records regulations: The Federal rules restrict any use of the information to criminally investigate or prosecute any alcohol or drug abuse patient.In the event this information is protected by the Federal Confidentiality of Alcohol and Drug Abuse Patient Records regulations: The Federal rules restrict any use of the information to criminally investigate or prosecute any alcohol or drug abuse patient.In the event this information is protected by the Federal Confidentiality of Alcohol and Drug Abuse Patient Records regulations: The Federal rules restrict any use of the information to criminally investigate or prosecute any alcohol or drug abuse patient.In the event this information is protected by the Federal Confidentiality of Alcohol and Drug Abuse Patient Records regulations: The Federal rules restrict any use of the information to criminally investigate or prosecute any alcohol or drug abuse patient.In the event this information is protected by the Federal Confidentiality of Alcohol and Drug Abuse Patient Records regulations: The Federal rules restrict any use of the information to criminally investigate or prosecute any alcohol or drug abuse patient.In the event this information is protected by the Federal Confidentiality of Alcohol and Drug Abuse Patient Records regulations: The Federal rules restrict any use of the information to criminally investigate or prosecute any alcohol or drug abuse patient.In the event this information is protected by the Federal Confidentiality of Alcohol and Drug Abuse Patient Records regulations: The Federal rules restrict any use of the information to criminally investigate or prosecute any alcohol or drug abuse patient.In the event this information is protected by the Federal Confidentiality of Alcohol and Drug Abuse Patient Records regulations: The Federal rules restrict any use of the information to criminally investigate or prosecute any alcohol or drug abuse patient.In the event this information is protected by the Federal Confidentiality of Alcohol and Drug Abuse Patient Records regulations: The Federal rules restrict any use of the information to criminally investigate or prosecute any alcohol or drug abuse patient.In the event this information is protected by the Federal Confidentiality of Alcohol and Drug Abuse Patient Records regulations: The Federal rules restrict any use of the information to criminally investigate or prosecute any alcohol or drug abuse patient.In the event this information is protected by the Federal Confidentiality of Alcohol and Drug Abuse Patient Records regulations: The Federal rules restrict any use of the information to criminally investigate or prosecute any alcohol or drug abuse patient.In the event this information is protected by the Federal Confidentiality of Alcohol and Drug Abuse Patient Records regulations: The Federal rules restrict any use of the information to criminally investigate or prosecute any alcohol or drug abuse patient.In the event this information is protected by the Federal Confidentiality of Alcohol and Drug Abuse Patient Records regulations: The Federal rules restrict any use of the information to criminally investigate or prosecute any alcohol or drug abuse patient.In the event this information is protected by the Federal Confidentiality of Alcohol and Drug Abuse Patient Records regulations: The Federal rules restrict any use of the information to criminally investigate or prosecute any alcohol or drug abuse patient.In the event this information is protected by the Federal Confidentiality of Alcohol and Drug Abuse Patient Records regulations: The Federal rules restrict any use of the information to criminally investigate or prosecute any alcohol or drug abuse patient. Reason for Visit (unrecogniz ed section and content) Reason Comments Schedule Surgery Robotic b/l thymecto my Specialty Diagnoses / Procedures Referred By Contac t Referred To Contact MR IMAGING Diagnoses Mediastinal mass Lesion of liver Procedures MRI LIVER WO/W IVCON MRI ABDOMEN W/O & W/CONTRAST MATERIAL Jasiel Turner MD [address] [place] [address] Mr Imaging [id number] Referral ID Status Reason Start Date Expiration Date V isits Requested Visits Authorized [id number] Closed Auto-Generate d Referral 07/13/2023 08/11/2024 1 1 Reason Comments Annual Exam Reason Comments Pre-Op Exam Reason Comments Radio Main J1 Reason Comments Follow Up Phone Call RC f/u all clear Reason Onset Date Comments Transition Of Care 09/17/2023 Reason Comments Follow Up Phone Call RC follow up call a ll clear. Reason Comments FMLA Paperwork Reason Comments Return To Work Letter Reason Comments Patient Education Reason Comments Consult Specialty Diagnoses / Procedures Referred By Contac t Referred To Contact Radiation Oncology Diagnoses Thymoma Procedures RAD/ONC CONSULT OFFICE/OUTPATIENT [facility] 60 MINUTES Kandy Vallecillo, LINE MAINTAINER SECTION.BODY CARE MANAGER [address] [id number] Referral ID Status Reason Start Date Expiration Date V isits Requested Visits Authorized [id number] Closed PCP Requested Referral 10/05/2023 10/04/2024 1 1 Reason Comments Established Patient Reason Comments Established Patient Reason Comments Radiotherapy On-treatment Visit Reason Comments Patient Update Post Radiation Nurse Call Reason Comments thymoma Follow up Specialty Diagnoses / Procedures Referred By Contac t Referred To Contact Radiation Oncology / RADIATION ONCOLOGY Diagnoses Malignant neoplasm of anterior mediastinum SIM treating chest with IV contrast, 4DCT IMRT 27 FX plus sim Procedures INTENSITY MODULATED RADIATION TX DLVR COMPLEX SIMULATION SONDRA IMRT 27 FX plus sim Zeferino Desouza MD [address] [place] [address] [place] [address] Zeferino Desouza MD [address] [place] [address] [place] [address] Referral ID Status Reason Start Date Expiration Date Visits Re quested Visits Authorized [id number] Closed 09/28/2023 01/11/2024 [address] Specialty Diagnoses / Procedures Referred By Contac t Referred To Contact CT IMAGING Diagnoses Malignant neoplasm of thymus (HCC) Procedures CT CHEST W IVCON DIAGNOSTIC COMPUTED TOMOGRAPHY THORAX W/CONTRAST Zeferino Desouza MD [address] [place] [address] [place] [address] [place] [address] Referral ID Status Reason Start Date Expiration Date V isits Requested Visits Authorized [id number] Closed Auto-Generate d Referral 10/11/2023 11/09/2024 1 1 Care Teams (unrecognized sec tion and content) Receipt And Report Clerk Relationship Specialty Start Date End Date Claire De Los Santos DO [address] [place] [phone] PCP - General Neurology 07/11/23 Receipt And Report Clerk Relationship Specialty Start Date End Date de Ana María Wolfe [address] [place] [address] PCP - General Family Medicine 08/28/23 Receipt And Report Clerk Relationship Specialty Start Date End Date Cristian Teixeira, LINE MAINTAINER SECTION-BODY CARE MANAGER [address] [place] [address] PCP - General Family Medicine 06/13/18 Receipt And Report Clerk Relationship Specialty Start Date End Date de Ana María Wolfe [address] [place] [address] PCP - General Family Medicine 08/28/23 de Ana María Wolfe [address] [place] [address] Referring Family Medicine 08/31/23 Receipt And Report Clerk Relationship Specialty Start Date End Date de Ana María Wolfe [address] [place] [address] PCP - General Family Medicine 08/28/23 de Ana María Wolfe [address] [place] [address] Referring Family Medicine 08/31/23 Receipt And Report Clerk Relationship Specialty Start Date End Date de [facility], Ana María Pepper [address] [place] [address] PCP - General Family Medicine 08/28/23 pr Ana María Wolfe [address] [place] [address] Referring Family Medicine 08/31/23 Receipt And Report Clerk Relationship Specialty Start Date End Date de [facility], Ana María Pepper [address] [place] [address] PCP - General Family Medicine 08/28/23 pr Ana María Wolfe [address] [place] [address] Referring Family Medicine 08/31/23 Receipt And Report Clerk Relationship Specialty Start Date End Date Cristian Teixeira, VIVIAN-BODY CARE MANAGER [address] [place] [address] PCP - General Family Medicine 06/13/18 Receipt And Report Clerk Relationship Specialty Start Date End Date de Yaneth, Ana María Pepper [address] [place] [address] PCP - General Family Medicine 08/28/23 pr Ana María Wolfe [address] [place] [address] Referring Family Medicine 08/31/23 Receipt And Report Clerk Relationship Specialty Start Date End Date de Yaneth, Ana María Pepper [address] [place] [address] PCP - General Family Medicine 08/28/23 pr Ana María Wolfe [address] [place] [address] Referring Family Medicine 08/31/23 Receipt And Report Clerk Relationship Specialty Start Date End Date de Ana María Wolfe [address] [place] [address] PCP - General Family Medicine 08/28/23 de Ana María Wolfe [address] [place] [address] Referring Family Medicine 08/31/23 Receipt And Report Clerk Relationship Specialty Start Date End Date de Ana María Wolfe [address] [place] [address] PCP - General Family Medicine 08/28/23 pr Ana María Wolfe [address] [place] [address] Referring Family Medicine 08/31/23 Receipt And Report Clerk Relationship Specialty Start Date End Date de Ana María Wolfe [address] [place] [address] PCP - General Family Medicine 08/28/23 de Ana María Wolfe [address] [place] [address] Referring Family Medicine 08/31/23 Receipt And Report Clerk Relationship Specialty Start Date End Date de Ana María Wolfe [address] [place] [address] PCP - General Family Medicine 08/28/23 de Ana María Wolfe [address] [place] [address] Referring Family Medicine 08/31/23 Receipt And Report Clerk Relationship Specialty Start Date End Date de Yaneth, Ana María Pepper [address] [place] [address] PCP - General Family Medicine 08/28/23 de Ana María Wolfe [address] [place] [address] Referring Family Medicine 08/31/23 Receipt And Report Clerk Relationship Specialty Start Date End Date de Yaneth, Ana María Pepper [address] [place] [address] PCP - General Family Medicine 08/28/23 pr Ana María Wolfe [address] [place] [address] Referring Family Medicine 08/31/23 Receipt And Report Clerk Relationship Specialty Start Date End Date pr Yaneth, Ana María Pepper [address] [place] [address] PCP - General Family Medicine 08/28/23 pr Ana María Wolfe [address] [place] [address] Referring Family Medicine 08/31/23 Receipt And Report Clerk Relationship Specialty Start Date End Date de Yaneth, Ana María Pepper [address] [place] [address] PCP - General Family Medicine 08/28/23 pr Ana María Wolfe [address] [place] [address] Referring Family Medicine 08/31/23 Receipt And Report Clerk Relationship Specialty Start Date End Date de Yaneth, Ana María Pepper [address] [place] [address] PCP - General Family Medicine 08/28/23 de Ana María Wolfe [address] [place] [address] Referring Family Medicine 08/31/23 Receipt And Report Clerk Relationship Specialty Start Date End Date de Ana María Wolfe [address] [place] [address] PCP - General Family Medicine 08/28/23 pr Ana María Wolfe [address] [place] [address] Referring Family Medicine 08/31/23 Receipt And Report Clerk Relationship Specialty Start Date End Date pr Ana María Wolfe [address] [place] [address] PCP - General Family Medicine 08/28/23 pr Ana María Wolfe [address] [place] [address] Referring Family Medicine 08/31/23 Receipt And Report Clerk Relationship Specialty Start Date End Date pr Ana María Wolfe [address] [place] [address] PCP - General Family Medicine 08/28/23 pr Ana María Wolfe [address] [place] [address] Referring Family Medicine 08/31/23 Receipt And Report Clerk Relationship Specialty Start Date End Date de Ana María Wolfe [address] [place] [address] PCP - General Family Medicine 08/28/23 pr Ana María Wolfe [address] [place] [address] Referring Family Medicine 08/31/23 Receipt And Report Clerk Relationship Specialty Start Date End Date de Ana María Wolfe [address] [place] [address] PCP - General Family Medicine 08/28/23 pr Ana María Wolfe [address] [place] [address] Referring Family Medicine 08/31/23 Receipt And Report Clerk Relationship Specialty Start Date End Date de Ana María Wolfe [address] [place] [address] PCP - General Family Medicine 08/28/23 pr Ana María Wolfe [address] [place] [address] Referring Family Medicine 08/31/23 Receipt And Report Clerk Relationship Specialty Start Date End Date de Ana María Wolfe [address] [place] [address] PCP - General Family Medicine 08/28/23 pr Ana María Wolfe [address] [place] [address] Referring Family Medicine 08/31/23 Receipt And Report Clerk Relationship Specialty Start Date End Date de Ana María Wolfe [address] [place] [address] PCP - General Family Medicine 08/28/23 pr Ana María Wolfe [address] [place] [address] Referring Family Medicine 08/31/23 FOR RECORDS PERTAINING TO PATIENTS WHO ARE OR HAVE BEEN ENROLLED IN A CHEMICAL DEPENDENCY/SUBSTANCEABUSE PROGRAM, SOME INFORMATION MAY BE OMITTED. This clinical summary was aggregated from multiple sources. Caution should be exercised in using it in the provision of clinical care. This summary normalizes information from multiple sources, and as a consequence, information in this document may materially change the coding, format and clinical context of patient data. In addition, data may be omitted in some cases. CLINICAL DECISIONS SHOULD BE BASED ON THE PRIMARY CLINICAL RECORDS. [facility] [facility]. provides no warranty or guarantee of the accuracy or completeness of information in this document.
== END 2024-04-14 20:38 | disposition home or self-care (01) ==
LOC: LAB 20:37
PROVIDERS: Visit Provider Physician Assistant
DX: Z01.419 Encounter for gynecological examination (general) (routine) without abnormal findings (principal)
CPT/HCPCS: 87624; 88175

== ENCOUNTER 2024-06-02 06:58 | Outpatient (OUT) | payer OTHER, SELFPAY ==
--- NOTE | 2024-06-02 07:01 | MM_ITS ---
Patient Name: MARNIE THOMAS MR#: [id number] : 1970 Exam Date: 06/02/2024 Ordering Doctor: JACQUES Moreno . RADIOLOGY REPORT PROCEDURE: MM TOMOSYNTHESIS SCREENING BI COMPARISON: MM TOMOSYNTHESIS SCREENING BI, 05/30/2023. MG MAMM SCREEN 3D GLORIA CAD, 01/06/2021. MG MAMM SCREEN GLORIA W CAD, 12/19/2019. MG MAMM SCREEN GLORIA W CAD, 07/11/2013. INDICATIONS: screening for malignant neoplasm of breast Calculator Name [facility] Breast Cancer Risk Assessment Tool 5 Year Breast Cancer Risk 1.60% Lifetime Breast Cancer Risk 11.20% Personal Breast Cancer No Personal Ovarian Cancer No Treatments None Family Cancers Mother with lymphoma cancer at age 50; Mother with meningioma cancer at age 60. LOCATION: [facility] BREAST COMPOSITION: There are scattered areas of fibroglandular density. FINDINGS: DIAGNOSTIC CATEGORY 2--BENIGN FINDING: RIGHT BREAST: No significant suspicious finding. Scattered benign-appearing calcifications are present. No significant change has occurred. LEFT BREAST: No significant suspicious finding. Scattered benign-appearing calcifications are present. No significant change has occurred. RECOMMENDATIONS: ROUTINE MAMMOGRAM AND CLINICAL EVALUATION IN 12 MONTHS. PLEASE NOTE: A NORMAL MAMMOGRAM DOES NOT EXCLUDE THE POSSIBILITY OF BREAST CANCER. A CLINICALLY SUSPICIOUS PALPABLE LUMP SHOULD BE BIOPSIED. Dictated by: Demar Mills M.D. on 06/03/2024 at 13:49 Approved by: Demar Mills M.D. on 06/03/2024 at 13:52
--- OUTSIDE RECORDS SUMMARY | 2024-06-02 07:07 | XMS_ITS | CCD ---
Author Organization [facility] Care Team Providers Care Manager Integration Name Role Phone PATRICIA, DR HUGGINS Consulting Unavailable KARASIK, DR HUGGINS Admitting Unavailable DEFRANCE, DR GOTTI Primary Care Unavailable KARASIK, DR HUGGINS Attending Unavailable KARASIK, DR HUGGINS Attending Unavailable KARASIK, DR HUGGINS Consulting Unavailable DEFRANCE, DR GOTTI Primary Care Unavailable KARASIK, DR HUGGINS Admitting Unavailable ZIEBER, DR AMARI Gonzalez Consulting Unavailable ROSS, AKIL Admitting Unavailable DEFRANCE, DR GOTTI Primary Care Unavailable ROSS, AKIL Attending Unavailable ROSS, AKIL Consulting Unavailable NILL, DR BAIN Admitting Unavailable DEFRANCE, DR GOTTI Primary Care Unavailable NILL, DR BAIN Attending Unavailable NILL, DR BAIN Consulting Unavailable DORKOSKIE, DEIRDRE Consulting Unavailable Claire De Los Santos DO Primary Care Provider Ana María Mckeon Primary Care Provider 1( [phone] CLAIRE DE LOS SANTOS Primary Care Unavailab le RAJA, JASIEL Referring Unavailable Cristian Martinez Primary Care Provide r Ana María Mckeon Unavailable Ana María Mckeon Primary Care Provider CLAIRE DE LOS SANTOS Attending Unavailable TIFFANIE MORENO Attending Unavailable Ana María Adorno MD Primary Care Provider Tiffanie Hernandez Unavailable CLAIRE DE LOS SANTOS Primary Care Unavailab le RAJA, JASIEL Referring Unavailable CLAIRE DE LOS SANTOS Primary Care Unavailab le EMILYA, JASIEL Attending Unavailable ANA MARÍA MCKEON Primary Care Unavaila shannan DESOUZA, ZEFERINO Referring Unavailable ANA MARÍA MCKEON Primary Care Unavaila ble LYLY, ZEFERINO Referring Unavailable ANA MARÍA MCKEON Primary Care Unavaila ble LYLY, ZEFERINO Referring Unavailable DE YANETH, ANA MARÍA PEPPER Primary Care Unavaila ble LYLY, ZEFERINO Referring Unavailable LYLY, ZEFERINO Referring Unavailable DE YANETH, ANA MARÍA PEPPER Primary Care Unavaila ble LYLY, ZEFERINO Referring Unavailable DE YANETH, ANA MARÍA PEPPER Primary Care Unavaila ble LYLY, ZEFERINO Attending Unavailable DE YANETH, ANA MARÍA PEPPER Primary Care Unavaila ble KANDY VALLECILLO Attending Unavailable RUTH ANN, KANDY Referring Unavailable DE YANETH, ANA MARÍA PEPPER Primary Care Unavaila ble RUTH ANN, KANDY Referring Unavailable QUINTEN RUIZ Attending Unavailable DE YANETH, ANA MARÍA PEPPER Primary Care Unavaila ble LYLY, ZEFERINO Attending Unavailable DE YANETH, ANA MARÍA PEPPER Primary Care Unavaila ble DE YANETH, ANA MARÍA PEPPER Primary Care Unavaila ble SERHAL, ROC Referring Unavailable DE YANETH, ANA MARÍA PEPPER Primary Care Unavaila ble SERHAL, ROC Referring Unavailable DE YANETH, ANA MARÍA PEPPER Primary Care Unavaila ble WENIKKI, KANDY Attending Unavailable LYLYZEFERINO ROMEO Referring Unavailable DE YANETH, ANA MARÍA PEPPER [...] Care Unavaila ble LYLY, ZEFERINO Referring Unavailable LYLY, ZEFERINO Attending Unavailable DE YANETH, ANA MARÍA PEPPER Primary Care Unavaila ble DE YANETH, ANA MARÍA PEPPER Primary Care Unavaila ble LYLY, ZEFERINO Referring Unavailable LYLYZEFERINO Attending Unavailable DE YANETH, ANA MARÍA PEPPER Primary Care Unavaila ble QUINTEN RUIZ Attending Unavailable DE YANETH, ANA [...] Care Unavaila ble LYLY, ZEFERINO Referring Unavailable LYLY, ZEFERINO Attending Unavailable DE YANETH, ANA MARÍA PEPPER Primary Care Unavaila ble CLAIRE DE LOS SANTOS Primary Care Unavailab le RAJJASIEL Begum Admitting Unavailable RAJA, JASEIL Attending Unavailable DE YANETH, ANA MARÍA PEPPER Primary Care Unavaila ble DE YANETH, ANA MARÍA PEPPER Primary Care Unavaila ble DE YANETH, ANA MARÍA PEPPER Primary Care Unavaila ble KANDY VALLECILLO Attending Unavailable MELISSA HAILE Referring Unavailable LYYL, ZEFERINO Referring Unavailable DE YANETH, ANA MARÍA PEPPER Primary Care Unavaila ble WEGAKANDY Strickland Referring Unavailable DE YANETH, ANA MARÍA PEPPER Primary Care Unavaila ble DE YANETH, ANA MARÍA PEPPER Primary Care Unavaila ble LYLY, ZEFERINO Referring Unavailable DE YANETH, ANA MARÍA PEPPER Primary Care Unavaila ble LYLY, ZEFERINO Referring Unavailable LYLY, ZEFERINO Attending Unavailable DE YANETH, ANA [...] Care Unavaila ble LYLY, ZEFERINO Referring Unavailable LYLY, ZEFERINO Referring Unavailable DE YANETH, [...] PEPPER Primary Care Unavaila ble KANDY VALLECILLO Referring Unavailable DE YANETH, ANA MARÍA PEPPER Primary Care Unavaila ble CLAIRE DE LOS SANTOS Primary Care Unavailab ROC Edwards Attending Unavailable RAJA, JASIEL Referring Unavailable RAJA, JASIEL Referring Unavailable DE YANETH, ANA [...] PEPPER Primary Care Unavaila ble KANDY VALLECILLO Referring Unavailable DE YANETH, ANA MARÍA PEPPER Primary Care Unavaila ble LYLY, ZEFERINO Attending Unavailable ZEFERINO DESOUZA Referring Unavailable DE YANETH, ANA MARÍA PEPPER Primary Care Unavaila CLAIRE Pablo Primary Care Unavailab DAVID Williamson Attending Unavailable CLAIRE DE LOS SANTOS Primary Care Unavailab le RAJKel JASIEL Referring Unavailable CRISTIAN TEIXEIRA Attending Unavailable [...] Comment on above: Take 2 tablets by mo ut every 6 hours for 7 days. Calcium (1 source) Phosphate Binder, Calcium CALCIUM ORAL Take by mouth. Active cefdinir 300 mg oral capsule (1 source) Cephalosporin Antibacterial Start: 05-20-2024 End: 05-30-2024 take 1 capsule by mouth in the morning, then take 1 capsule by mouth at bedtime cefDINIR (OMNICEF) 300 mg capsule Take 1 capsule (300 mg total) by mouth in the morning and 1 capsule (300 mg total) before bedtime. Do all this for 10 days. 20 capsule 05/20/2024 05/30/2024 Active cholecalciferol, vitamin D3, (VITAMIN D3 ORAL) (20 sources) take 2000 [IU] by mouth once daily cholecalciferol, vitamin D3, (VITAMIN D3 ORAL) Take 2,000 Units by mouth once daily. Active cholecalciferol, vitamin D3, (VITAMIN D3 ORAL) Take by mouth once daily. Active cholecalciferol, vitamin D3, (VITAMIN D3 ORAL) Take by mouth once daily. 0 Active cholecalciferol, vitamin D3, (VITAMIN D3 ORAL) Take by mouth. 0 Active Comment on above: Take by mouth. ibuprofen 600 mg oral tablet (20 sources) Nonsteroidal Anti-inflammatory Drug Start: End: take 1 tablet by mouth every six hours as needed for pain ibuprofen (MOTRIN) 600 mg tablet Indications: Myasthenia gravis (HCC) , Postoperative pain , Thymoma Take 1 tablet by mouth every 6 hours as needed for pain. 60 tablet 11/29/2023 Active Comment on above: Take 1 tablet by george th every 6 hours as needed for pain. iv contrast (will be provided with radiology test) (8 sources) Start: End: iv contrast (will be provided with radiology [...] CT contrast administration guidelines link. 1 Each 04/29/2024 04/30/2024 Active Start: 10-29-2023 End: 10-30-2023 iv contrast (will [...] up to 7 days. polyethylene glycol 3350 54990 mg powder for oral solution (4 sources) Osmotic Laxative Start: 09-15-19 End: 09-22-19 polyethylene glycol 3350 17 gram packet Take 1 Packet by mouth once daily for 7 days. For prevention of postoperative opioid induced constipation.. Dissolve dose in 4 - 8 ounces of liquid and take as directed. 7 Packet 0 09/15/2023 09/22/2023 Active Comment on above: Take 1 Packet by george th once daily for 7 days. For prevention of postoperative opioid induced constipation.. Dissolve dose in 4 - 8 ounces of liquid and take as directed. predniSONE 1 mg oral tablet (20 sources) Start: 04-29-20 End: 08-31-19 25 take 4 tablets by mouth once daily, then take 3 tablets by mouth once daily, then take 2 tablets by mouth once daily, then take 1 tablet by mouth once daily predniSONE (DELTASONE) 1 mg tablet Take 4 tablets by mouth once daily for 31 days, THEN 3 tablets once daily for 31 days, THEN 2 tablets once daily for 31 days, THEN 1 tablet once daily. 310 tablet 04/29/2024 08/31/2024 Active Start: 04-29-2024 End: 08-31-2024 predniSONE (DELTASONE) 1 mg tablet Take 1 tablet (1 mg total) by mouth. 04/29/2024 08/31/2024 Active Start: 02-06-2024 End: 03-07-2024 take 1 tablet by mouth once daily [...] daily. 180 tablet 1 08/30/2023 10/29/2023 Discontinued End: 04-29-2024 take 1 tablet by mouth once daily predniSONE (DELTASONE) 5 mg tablet Take 5 mg by mouth once daily. 04/29/2024 Discontinued take 1 tablet by george th in the morning predniSONE (Deltasone) 10 MG tablet Take 10 mg by mouth in the morning and 10 mg before bedtime. Active Comment on above: Take 2 tablets by mo [facility] once daily. Completed/Discontinued Medications Medication Drug Class(es) Dates Sig (Normalized) Sig (Original) mupirocin 0.02 mg/mg topical ointment (1 source) [...] times daily. 360 tablet 1 08/30/2023 02/26/2024 take 1 tablet by george once daily pyRIDostigmine bromide 30 mg tab Take 30 mg by mouth once daily. Active End: 05-20-2024 take 1 tablet by mouth three times daily pyRIDostigmine bromide 30 mg tablet Take 30 mg by mouth 3 (three) times a day. 05/20/2024 Discontinued Comment on above: Take 1 tablet by george four times daily. Problems Active Problems Problem Classification Problem Date Documented Date Episodic/Chronic Blindness and vision defects (4 sources) Visual impairment; Translations: [Unspecified visual loss] Onset: 01-20-2024 01-20-2024 Chronic Cancer; other and unspecified primary (4 sources) Malignant tumor of thymus; Translations: [Malignant neoplasm of thymus] 10-29-2023 Chronic Cancer; other and unspecified primary (1 source) Malignant neoplasm of thymus; Translations: [Malignant neoplasm of thymus (HCC)] Onset: 10-16-2023 Chronic Immunizations and screening for infectious disease (5 sources) Encounter for immunization; Translations: [Encounter for screening for human papillomavirus (HPV)] Onset: 12-14-2020 Episodic Neoplasms of unspecified nature or uncertain behavior (20 sources) Thymoma; Translations: [Neoplasm of unspecified behavior of other specified sites] Onset: 09-13-2023 09-14-2023 Episodic Other aftercare (1 source) Surgical follow-up; Translations: [Encounter for follow-up examination after completed treatment for conditions other than malignant neoplasm] 09-21-2023 Episodic Other and unspecified benign neoplasm (1 source) Benign neoplasm of thymus; Translations: [Benign neoplasm of thymus] 09-12-2023 Episodic Other liver diseases (5 sources) Lesion of liver; Translations: [Liver disease, unspecified] Onset: 01-20-2024 08-28-2023 Chronic Other liver diseases (2 sources) Liver disease, unspecified; Translations: [Lesion of liver] Onset: 08-06-2023 Chronic Other nervous system disorders (19 sources) Myasthenia gravis; Translations: [Myasthenia gravis without (acute) exacerbation] Onset: 06-13-2023 08-24-2023 Chronic Other nervous system disorders (20 sources) Myasthenia gravis without exacerbation; Translations: [Myasthenia gravis without (acute) exacerbation] 09-14-2023 Chronic Other nervous system disorders (3 sources) Myasthenia gravis without (acute) exacerbation; Translations: [Myasthenia gravis without exacerbation (HCC)] Onset: 08-06-2023 Chronic Other upper respiratory disease (1 source) Mediastinal mass; Translations: [Other diseases of mediastinum, not elsewhere classified] 08-28-2023 Episodic Other upper respiratory disease (1 source) Nasal congestion Onset: 05-20-2024 Episodic Other upper respiratory infections (2 sources) Acute maxillary sinusitis; Translations: [Acute maxillary sinusitis, unspecified] Onset: 05-20-2024 05-20-2024 Episodic Residual codes; unclassified (2 sources) Postmenopausal state; Translations: [Asymptomatic menopausal state] 04-14-2024 Episodic Thyroid disorders (20 sources) Multinodular goiter; Translations: [Nontoxic multinodular goiter] Onset: 08-18-2023 08-18-2023 Chronic Unclassified (1 source) Annual Exam Onset: 09-05-2023 Past or Other Problems Problem Classification Problem Date Documented Date Episodic/Chronic Mood disorders (3 sources) Mood disorders Onset: 02-04-2020 02-04-2020 Other aftercare (1 source) Encounter for follow-up [...] not elsewhere classified; Translations: [Mediastinal mass] Onset: 08-06-2023 Episodic Residual codes; unclassified (1 source) Acquired [...] of care] Onset: 09-13-2023 09-14-2023 Episodic Unclassified (3 sources) Onset: 02-04-2020 Resolved: 05-20-2024 02-04-2020 Results Test Name Value Interpretation Reference Range [facility] Office Visit (NENMMN ) ----- MARNIE ARANA ([id number]) 1970 F Date Time Provider Department 04/29/24 1:00 PM QUINTEN RUIZ NENMMN During your visit today, we recorded the following information about you: Pulse Blood pressure Weight Height 86/minute 122/79 103.6 kg 1.6 m Quinten Ruiz MD 04/29/2024 1:58 PM Signed I saw Marnie Arana at the [facility] on 04/29/24 in follow up for thymomatous seropositive MG (ocular). HPI: Ms. 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 At that visit she had completed treatment for her thymoma and was asymptomatic on low dose prednisone and the plan was to continuing to wean prednisone dose. Since their last visit: Two kids in college, one in [place] (will graduate in six weeks) and one at [employer]. 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 Will have another CT scan x 6 months and do that for two years. No symptoms of MG. No ocular symptoms (diplopia, eyelid ptosis). Is continuing to use mestinon once daily although more for comfort. Mar 09, went down to 5 mg pred/day. ROS: Pertinent positive and negative systems reviewed in HPI. Medications: Current Outpatient Medications Medication Sig predniSONE (DELTASONE) 5 mg tablet Take 5 mg by mouth once daily. pyRIDostigmine bromide 30 mg tab Take 30 mg by mouth once daily. iv contrast (will be provided with radiology [...] in the CT contrast administration guidelines link. cholecalciferol, vitamin D3, (VITAMIN D3 ORAL) Take 2,000 Units by mouth once daily. ibuprofen (MOTRIN) 600 mg tablet Take 1 tablet by mouth every 6 hours as needed for pain. (Patient not taking: Reported on 04/29/2024) No current facility-administered medications for this visit. Allergies: ALLERGIES No Known Allergies Exam: 04/29/24 1245 BP: 122/79 BP Site: Left Arm BP Position: Sitting BP Cuff Size: Large Adult Pulse: 86 SpO2: 97% Weight: 103.6 kg (228 lb 6.3 oz) Height: 160 cm (5' 3 ) [...] s/p thymectomy and adjuvant radiation. Neurologic exam remains normal and asymptomatic so would classify currently as pharmacologic remission. Will continue slow steroid taper and monitor for any symptom recurrence. Plan: Reduce daily prednisone dose by 1 mg/month until off If symptoms recur on pred taper go back to previous dose and contact office Stop pyridostigmine Continue vit D and Ca++ RV in ~ 5 months Quinten Ruiz MD [facility] [address] [place] [address] I spent a total of 25 minutes on the date of the service which included preparing to see the patient, [id number] patient care, completing clinical documentation, obtaining and/or [...] 1=Occurs, but not daily Eyelid droop: 0=None Answers submitted by the patient for this visit: Activities of Daily Living (MG-ADL) (Submitted on 04/23/2024) [place]win=Normal Swallowin=Normal Breathin=Normal Impairment of ability to brush teeth or comb hair: 0=None Impairment of ability to rise from a chair: 0=None Double vision: 0=None Eyelid droop: 0=None Quinten Ruiz MD 04/29/2024 1:30 PM Addendum Our plan: - try stopping the mestinon - go down on the prednisone in the following fashion; - May 09: start 4 mg/day - (more content not included)... Normal [facility] CNOV Office Visit (THORMN ) ----- MARNIE ARANA ([id number]) 1970 F Date Time Provider Department 04/29/24 11:00 AM KANDY VALLECILLO During your visit today, we recorded the following information about you: Temperature Pulse Respiration Blood pressure 97.6 degrees 80/minute 14/minute 162/78 Weight Height 103.6 kg 1.6 m Kandy Vallecillo APRN.CNP 04/29/2024 1:03 PM Signed Part of this note was copied from previous note, all content has been individually reviewed, updated as necessary, and thoroughly reviewed. [facility] - OUTPATIENT THORACIC SURGERY CLINIC NOTE PT [id number] THORACIC SURGEON: Jasiel Turner M.D. DATE OF SERVICE: 04/29/2024 PRINCIPAL DX: -T1aN0 stage IIa Thymoma, (+) [...] been determined by the performing laboratory within [facility] Pathology and Laboratory Medicine [place] ([facility], [facility], [facility], [facility], [facility], [facility], or [facility]) in a manner consistent with CLIA [...] Findings Age-appropriate involutional changes REASON FOR VISIT: CT Surveillance HPI: Marnie Arana is a 53 year old female never smoker with PMHx of ocular myasthenia gravis (Ab +) and a thymoma. Preoperative Hospital Course: Presented with blurry vision in the evening as well as intermittent double vision, symptoms began 05/2023. 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 and [...] was increased to 20 mg daily in (more content not included)... Normal [facility] CT CHEST W IVCONon CT CHEST W IVCON * * *Final Report* * * DATE OF EXAM: Apr 29 2024 10:13AM [facility] [id number] - CT CHEST W IVCON / PROCEDURE REASON: Malignant neoplasm of thymus (HCC) * * * * Physician Interpretation * * * * EXAMINATION: CHEST CT WITH CONTRAST CLINICAL HISTORY: 53-year-old female. T1aN0 stage IIa Thymoma, (+) margin. Status post (09/13/2023) robotic bilateral thymectomy. Tumor was noted to be present at the anterior and posterior margins of the specimen (R1). She completed a course of post-operative radiation therapy to the post-operative bed/chest on 11/30/2023 (5400 cGy delivered in 27 fractions). Technique: Spiral CT acquisition of the chest from the thoracic inlet to the upper abdomen following IV contrast. MQ: CTCW_6 Contrast: 50 mL Omnipaque [address] Radiation dose: Integrated Dose-length product (DLP) for this visit = 423 mGy*cm CT Dose Reduction Employed: mAs-kVp adjusted based on patient size-age . Comparison: Multiple prior CT scans of the chest including the most recent study dated 10/16/2023 RESULT: Limitations: Respiratory motion. Lines, tubes, and devices: None. Lung parenchyma, airways: Interval development of dense sharply demarcated paramediastinal consolidative opacities with architectural distortion along the medial left upper lobe, likely to represent evolving postradiation changes. A 4 mm nodule in right upper lobe (4:41) remains stable. No new or enlarging lung nodule. Patent central airways. No endobronchial lesion.. Pleural space: No pleural effusion, pleural thickening, or pneumothorax. Lower neck, lymph nodes, and mediastinum: The imaged thyroid gland is unremarkable. No lymphadenopathy in the supraclavicular, axillary, mediastinal, or hilar regions. Status post resection of anterior mediastinal mass with no evidence of recurrent/residual disease. Small hiatal hernia. Heart, pericardium, and thoracic vessels: Thoracic aorta is normal in caliber. Dilated main pulmonary artery, measures (3.1 cm), which can be seen in setting of pulmonary hypertension. Dilated left atrium. No distinct coronary artery atherosclerotic calcifications are noted, although the study is not optimized for coronary assessment. No pericardial effusion or thickening. Bones and soft tissues: Degenerative changes of the spine. Stable T8 vertebral body hemangioma. No destructive bone lesion. Chest wall soft tissues are unremarkable. Upper abdomen: No acute abnormality identified in the imaged upper abdomen. Redemonstrated are essentially unchanged hypervascular liver lesions, previously characterized as hemangioma on MRI liver 08/28/2023. Localizer images: No additional findings. IMPRESSION: 1. Status post resection of anterior mediastinal mass with no evidence of recurrent/residual disease. 2. New evolving postradiation changes in the medial left upper lobe. 3. Stable 4 mm right upper lobe lung nodule. No new or enlarging pulmonary nodule. Continued attention on imaging surveillance is recommended. 4. No thoracic lymphadenopathy. Contract Attorney[facility] Transcribe Date/Time: Apr 29 2024 11:10A Dictated by : AMADOU SHARPE MD This examination was interpreted and the report reviewed and electronically signed by: JAYSHREE IRIZARRY MD on Apr 29 2024 12:54PM EST [id number] Normal [facility] CT Chest W contrast Festus IMPRESSION: 1. Status post resection of anterior mediastinal mass with no evidence of recurrent/residual disease. 2. New evolving postradiation changes in the medial left upper lobe. 3. Stable 4 mm right upper lobe lung nodule. No new or enlarging pulmonary nodule. Continued attention on imaging surveillance is recommended. 4. No thoracic lymphadenopathy. Contract Attorney: [employer] Transcribe Date/Time: Apr 29 2024 11:10A Dictated by : AMADOU SHARPE MD This examination was interpreted and the report reviewed and electronically signed by: JAYSHREE IRIZARRY MD on Apr 29 2024 12:54PM [facility] DIVISION OF RADIOLOGY * * *Final Report* * * DATE OF EXAM: Apr 29 2024 10:13AM [facility] [id number] - CT CHEST W IVCON / PROCEDURE REASON: Malignant neoplasm of thymus (HCC) * * * * Physician Interpretation * * * * EXAMINATION: CHEST CT WITH CONTRAST CLINICAL HISTORY: 53-year-old female. T1aN0 stage IIa Thymoma, (+) margin. Status post (09/13/2023) robotic bilateral thymectomy. Tumor was noted to be present at the anterior and posterior margins of the specimen (R1). She completed a course of post-operative radiation therapy to the post-operative bed/chest on 11/30/2023 (5400 cGy delivered in 27 fractions). Technique: Spiral CT acquisition of the chest from the thoracic inlet to the upper abdomen following IV contrast. MQ: CTCW_6 Contrast: 50 mL Omnipaque [address] Radiation dose: Integrated Dose-length product (DLP) for this visit = 423 mGy*cm CT Dose Reduction Employed: mAs-kVp adjusted based on patient size-age . Comparison: Multiple prior CT scans of the chest including the most recent study dated 10/16/2023 RESULT: Limitations: Respiratory motion. Lines, tubes, and devices: None. Lung parenchyma, airways: Interval development of dense sharply demarcated paramediastinal consolidative opacities with architectural distortion along the medial left upper lobe, likely to represent evolving postradiation changes. A 4 mm nodule in right upper lobe (4:41) remains stable. No new or enlarging lung nodule. Patent central airways. No endobronchial lesion.. Pleural space: No pleural effusion, pleural thickening, or pneumothorax. Lower neck, lymph nodes, and mediastinum: The imaged thyroid gland is unremarkable. No lymphadenopathy in the supraclavicular, axillary, mediastinal, or hilar regions. Status post resection of anterior mediastinal mass with no evidence of recurrent/residual disease. Small hiatal hernia. Heart, pericardium, and thoracic vessels: Thoracic aorta is normal in caliber. Dilated main pulmonary artery, measures (3.1 cm), which can be seen in setting of pulmonary hypertension. Dilated left atrium. No distinct coronary artery atherosclerotic calcifications are noted, although the study is not optimized for coronary assessment. No pericardial effusion or thickening. Bones and soft tissues: Degenerative changes of the spine. Stable T8 vertebral body hemangioma. No destructive bone lesion. Chest wall soft tissues are unremarkable. Upper abdomen: No acute abnormality identified in the imaged upper abdomen. Redemonstrated are essentially unchanged hypervascular liver lesions, previously characterized as hemangioma on MRI liver 08/28/2023. Localizer images: No additional findings. DIVISION OF RADIOLOGY Provider, [facility] - 04/29/2024 * * *Final Report* * * DATE OF EXAM: Apr 29 2024 10:13AM [facility] 0539 - CT CHEST W IVCON / PROCEDURE REASON: Malignant neoplasm of thymus (HCC) * * * * Physician Interpretation * * * * EXAMINATION: CHEST CT WITH CONTRAST CLINICAL HISTORY: 53-year-old female. T1aN0 stage IIa Thymoma, (+) margin. Status post (09/13/2023) robotic bilateral thymectomy. Tumor was noted to be present at the anterior and posterior margins of the specimen (R1). She completed a course of post-operative radiation therapy to the post-operative bed/chest on 11/30/2023 (5400 cGy delivered in 27 fractions). Technique: Spiral CT acquisition of the chest from the thoracic inlet to the upper abdomen following IV contrast. MQ: CTCW_6 Contrast: 50 mL Omnipaque [address] Radiation dose: Integrated Dose-length product (DLP) for this visit = 423 mGy*cm CT Dose Reduction Employed: mAs-kVp adjusted based on patient size-age . Comparison: Multiple prior CT scans of the chest including the most recent study dated 10/16/2023 RESULT: Limitations: Respiratory motion. Lines, tubes, and devices: None. Lung parenchyma, airways: Interval development of dense sharply demarcated paramediastinal consolidative opacities with architectural distortion along the medial left upper lobe, likely to represent evolving postradiation changes. A 4 mm nodule in right upper lobe (4:41) remains stable. No new or enlarging lung nodule. Patent central airways. No endobronchial lesion.. Pleural space: No pleural effusion, pleural thickening, or pneumothorax. Lower neck, lymph nodes, and mediastinum: The imaged thyroid gland is unremarkable. No lymphadenopathy in the supraclavicular, axillary, mediastinal, or hilar regions. Status post resection of anterior mediastinal mass with no evidence of recurrent/residual disease. Small hiatal hernia. Heart, pericardium, and thoracic vessels: Thoracic aorta is normal in caliber. Dilated main pulmonary artery, measures (3.1 cm), which can be seen in setting of pulmonary hypertension. Dilated left atrium. No distinct coronary artery atherosclerotic calcifications are noted, although the study is not optimized for coronary assessment. No pericardial effusion or thickening. Bones and soft tissues: Degenerative changes of the spine. Stable T8 vertebral body hemangioma. No destructive bone lesion. Chest wall soft tissues are unremarkable. Upper abdomen: No acute abnormality identified in the imaged upper abdomen. Redemonstrated are essentially unchanged hypervascular liver lesions, previously characterized as hemangioma on MRI liver 08/28/2023. Localizer images: No additional findings. IMPRESSION IMPRESSION: 1. Status post resection of anterior mediastinal mass with no evidence of recurrent/residual disease. 2. New evolving postradiation changes in the medial left upper lobe. 3. Stable 4 mm right upper lobe lung nodule. No new or enlarging pulmonary nodule. Continued attention on imaging surveillance is recommended. 4. No thoracic lymphadenopathy. Contract Attorney: JAIME Transcribe Date/Time: Apr 29 2024 11:10A Dictated by : AMADOU SHARPE MD This examination was interpreted and the report reviewed and electronically signed by: JAYSHREE IRIZARRY MD on Apr 29 2024 12:54PM EST [facility] Radiology Study observation (narrative) [facility] CT Chest W contrast IVOrdere d By: Ccf Provider on 04-29-2024 [facility] IGP,APTIMA HPV,AGE GDLNon AGE GDLN ACOG TESTING Note . [facility] Comment on above: TESTS RESULT FLAG UN ITS REF RANGE LAB Clinician Provided Cytology Information Source.............Vagina No. of containers..01 ThinPrep Vial Age Deb BAUMANN Laisha... 28 01 FLAG LEGEND: L-Low Normal,H-High Normal,LL-Alert Low,HH-Alert High <-Panic Low,>-Panic High,A-Abnormal,AA-Critical Abnormal Performed at: 01 =[address] [address] Sherri Nava MD, HPV APTIMA Negative Negative [facility] Comment on above: This nucleic acid am plification test detects fourteen high- risk HPV types (16,18,31,33,35,39,45,51,52,56,58,59,66,68) without differentiation. Performed at: =[address] [id number] Verification Clerk: Sherri Nava MD, Phone: [phone] Performed at: [address] [id number] Verification Clerk: Sherri Nvaa MD, Phone: [phone] IGP, APTIMA HPV, RFX 16/18,45 Note . [facility] Comment on above: TESTS RESULT FLAG UN ITS REF RANGE LAB DIAGNOSIS: 02 NEGATIVE FOR INTRAEPITHELIAL LESION OR MALIGNANCY. Specimen adequacy: 02 Satisfactory for evaluation. No endocervical cells are present. This is consistent with a history of hysterectomy. Performed by: 02 Kashmir Giles, Cadd Manager (ASCP) . 02 Note: Note 02 The Pap smear is a screening test designed to aid in the detection of premalignant and malignant conditions of the uterine cervix. It is not a diagnostic procedure and should not be used as the sole means of detecting cervical cancer. Both false-positive and false-negative reports do occur. Test Methodology: Note 02 This liquid based ThinPrep(R) pap test was screened with the use of an image guided system. HPV Genotype Reflex Note 02 Criteria not met, HPV Genotype not performed. FLAG LEGEND: L-Low Normal,H-High Normal,LL-Alert Low,HH-Alert High <-Panic Low,>-Panic High,A-Abnormal,AA-Critical Abnormal Performed at: [address] [address] Sherri Nava MD, SPATULA-ALONE VAGINA [facility] 02-06-2024 CNOV Office Visit (NENMMN ) ----- MARNIE ARANA ([id number]) 1970 F Date Time Provider Department 02/06/24 11:30 AM QUINTEN RUIZ During your visit today, we recorded the following information about you: Pulse Blood pressure Weight Height 63/minute 141/76 101.5 kg 1.6 m Quinten Ruiz MD 02/08/2024 9:57 AM Signed I saw Marnie Arana at the [facility] on 02/06/24 in follow up for [...] 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 ROS: Pertinent [...] RV in 2-3 months Quinten Ruiz MD [facility] [address] [place], [place] [address] I spent a total of 30 minutes on the date of the service which included preparing to see the patient, [id number] patient care, completing clinical documentation, obtaining and/or [...] AM Signed Our plan: Continue the pyridostigmine Aug 1: [...] Established Patient [175] Primary Visit Diagnosis:Myasthenia gravis (HCC) [G70.00] Order(s):predniSONE (DELTASONE) 2.5 mg tabletTake 1 tablet by mouth once daily.Disp: 30 tabletRfl: 0 Prescriptions as of 02/08/2024 - predniSONE (DELTASONE) 2.5 mg tablet Take 1 tablet by mouth once daily. - ibuprofen (MOTRIN) 600 mg tablet Take 1 tablet by mouth every 6 (more content not included)... Normal [facility] CNOVon 01-03-2024 CNOV Office Visit (RADTSA ) ----- MARNIE ARANA ([id number]) 1970 F Date Time Provider Department 01/03/24 2:00 PM ZEFERINO DESOUZA During your visit today, we recorded the following information about you: Temperature Pulse Respiration Blood pressure 97.6 degrees 74/minute 18/minute 127/71 Weight 104.7 kg Zeferino Desouza MD 01/15/2024 5:38 AM Addendum Radiation Oncology - Follow Up Note PATIENT NAME: Marnie Arana PATIENT DIAGNOSIS/PATIENT IDENTIFICATION: Ms. Arana is a 53-year-old woman diagnosed with Stage I, [id number] (AJCC)/Stage IIa ([place]) thymoma (Type AB) status [...] is being weaned off her prednisone. Ms. Collazot well approximately 1 month out with no [...] for Encounter Date Provider Department Center 01/03/2024 [id number] DESOUZA Encounter Status:Closed by ZEFERINO DESOUZA on 01/14/24 [facility] 12-18-2023 CNPN Telephone (GILDAA) ----- MARNIE ARANA ([id number]) 1970 F Date Time Provider Department 12/18/23 [...] Status:Closed by DILCIA PRICE on 12/18/23 Normal [facility] CNOVon 11-28-2023 CNOV Office Visit (RADTSA ) ----- MARNIE ARANA ([id number]) 1970 F Date Time Provider Department 11/28/23 [...] a 53-year-old woman diagnosed with Stage I, [id number] (AJCC)/Stage IIa ([place]) thymoma (Type AB) status [...] Encounter Status:Closed by ZEFERINO DESOUZA on 12/03/23 [facility] CNOVjewel 11-21-2023 CNOV Office Visit (RADTSA ) ----- MARNIE ARANA ([id number]) 1970 F Date Time Provider Department 11/21/23 2:30 PM ZEFERINO DESOUZA During your visit today, we recorded the following information about you: Temperature Pulse Respiration Blood pressure 97.2 degrees 65/minute 16/minute 128/84 Weight 103.5 kg Zeferino Desouza MD 12/03/2023 5:08 PM Signed Radiation Oncology - On Treatment Review (OTR) Note PATIENT NAME: Marnie Arana PATIENT DIAGNOSIS: Ms. Arana is a 53-year-old woman diagnosed with Stage I, [id number] (AJCC)/Stage IIa ([place]) thymoma (Type AB) status post bilateral robotic-assisted [...] Encounter Status:[facility]RADTSA [facility] ----- MARNIE ARANA ([id number]) 1970 F Date Time Provider Department 11/14/23 [...] a 53-year-old woman diagnosed with Stage I, [id number] (AJCC)/Stage IIa ([place]) thymoma (Type AB) status [...] exacerbation (HCC) [G* Encounter Status:Closed by ZEFERINO DESOUAZ on 11/26/23 [facility] CNOVon 11-07-2023 CNOV Office Visit (RADTSA ) ----- SUMITMARNIE LEVY ([id number]) 1970 F Date Time Provider Department 11/07/23 2:30 PM ZEFERINO DESOUZA RADTSA During your visit today, we recorded the following information about you: Temperature Pulse Respiration Blood pressure 97 degrees 66/minute 16/minute 122/69 Weight 102.6 kg Zeferino Desouza MD 11/07/2023 3:37 PM Signed Radiation Oncology - On Treatment Review (OTR) Note PATIENT NAME: Marnie Arana PATIENT DIAGNOSIS: Ms. Arana is a 53-year-old woman diagnosed with Stage I, [id number] (AJCC)/Stage IIa ([place]) thymoma (Type AB) status [...] Encounter Status:Closed by ZEFERINO DESOUZA on 11/07/23 [facility] CNOVon 10-31-2023 CNOV Office Visit (RADTSA ) ----- MARNIE ARANA ([id number]) 1970 F Date Time Provider Department 10/31/23 3:00 PM ZEFERINO DESOUZA During your visit today, we recorded the following information about you: Temperature Pulse Respiration Blood pressure 96.9 degrees 65/minute 16/minute 115/77 Weight 101.3 kg Marian Vines LPN 10/31/2023 2:54 PM Signed Status: Patient states there is no possibility she is at this time. Zeferino Desouza MD 11/06/2023 5:54 AM Signed Radiation Oncology - On Treatment Review (OTR) Note PATIENT NAME: Marnie Arana PATIENT DIAGNOSIS: Ms. Arana is a 53-year-old woman diagnosed with Stage I, [id number] (AJCC)/Stage IIa ([place]) thymoma (Type AB) status [...] Encounter Status:Closed by ZEFERINO DESOUZA on 11/06/23 Normal [facility] CNOVon 10-29-2023 CNOV Office Visit (NENMMN ) ----- MARNIE ARANA ([id number]) 1970 F Date Time Provider Department 10/29/23 4:00 PM DAVID DSOUZA NEKYMN During your visit today, we recorded the following information about you: Pulse Blood pressure Weight Height 78/minute 114/56 100.2 kg 1.6 m David Dsouza MD 10/29/2023 5:45 PM Addendum S90 [facility] Note- Established patient Provider: David Dsouza MD ([place] Fellow)/ Quinten Ruiz MD ([place] Staff) Date of last clinic visit: 07/16/23 [...] fatigue become worse. She saw her local relay repairer who did not find objective evidence of [...] To contact this office via telephone and/or tuQuejaSumahart if no commu (more content not included)... Normal [facility] CNOV Office Visit (THORMN ) ----- MARNIE ARANA ([id number]) 1970 F Date Time Provider Department 10/29/23 2:30 PM KANDY VALLECILLO During your visit today, we recorded the following information about you: Temperature Pulse Respiration Blood pressure 98 degrees 93/minute 16/minute 127/77 Weight 100.2 kg Kandy Vallecillo APRN.CNP 10/29/2023 2:41 PM Signed [facility] - OUTPATIENT THORACIC SURGERY CLINIC NOTE PT NAME: Marnie Cassidy [facility] NO: [id number] THORACIC SURGEON: Jasiel Turner M.D. DATE OF [...] been determined by the performing laboratory within [facility] ([facility], [facility], [facility], [facility], [facility], or [facility]) in a manner consistent with CLIA [...] vision, symptoms began 05/2023. 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 Normal [facility] XR CHEST 2V FRONTAL/LATon XR CHEST [...] disease identified in the lungs or mediastinum. Contract Attorney: JAIME Transcribe Date/Time: Oct 29 2023 4:22P Dictated by : YOANDY POMPA MD This examination was interpreted and the report reviewed and electronically signed by: YOANDY POMPA MD on Oct 29 2023 4:24PM EST [id number] Normal [facility] XR Chest PA and Lateralon IMPRESSION: No acute disease identified in the lungs or mediastinum. Contract Attorney: [facility] Transcribe Date/Time: Oct 29 2023 4:22P Dictated by : YOANDY POMPA MD This examination was interpreted and the report reviewed and electronically signed by: YOANDY POMPA MD on Oct 29 2023 4:24PM EST DIVISION OF RADIOLOGY * * *Final Report* [...] soft tissues: Unremarkable. DIVISION OF RADIOLOGY Provider, Paulina Denise Jean - 10/29/2023 * * *Final Report* * [...] disease identified in the lungs or mediastinum. Contract Attorney: JAIME Transcribe Date/Time: Oct 29 2023 4:22P Dictated by : YOANDY POMPA MD This examination was interpreted and the report reviewed and electronically signed by: YOANDY POMPA MD on Oct 29 2023 4:24PM EST [facility] Radiology Study observation (narrative) [facility] XR Chest PA and LateralOrder ed By: Ccf Provider on 10-29-2023 [facility] CT Chest W contrast Festus IMPRESSION: Resection [...] any questions regarding this interpretation, please call [phone]. If you are unable to reach us at the number above, please feel free to contact [facility] at [phone]. DIVISION OF RADIOLOGY * * *Final Report* * * DATE OF EXAM: Oct 16 2023 12:58PM [facility] 0539 - CT CHEST W IVCON / [...] characterized on prior MRI. Small hiatal hernia. Wage And Hour Investigator (topogram) images: Unremarkable. DIVISION OF RADIOLOGY Provider, Paulina Denise [facility] - 10/17/2023 * * *Final Report* * * DATE OF EXAM: Oct 16 2023 12:58PM [facility] 0539 - CT CHEST W IVCON / [...] characterized on prior MRI. Small hiatal hernia. Wage And Hour Investigator (topogram) images: Unremarkable. IMPRESSION IMPRESSION: Resection of anterior mediastinal mass. Unchanged 3 mm right upper lobe nodule. Transcribe Date/Time: Oct 17 2023 9:29A Dictated by: KUSUM DICK MD This examination was interpreted and the report reviewed and electronically signed by: KUSUM DIKC MD on Oct 17 2023 9:39AM EST Thank you for allowing us to participate in the care of your patient. Should there be any questions regarding this interpretation, please call [phone]. If you are unable to reach us at the number above, please feel free to contact [facility] eRadiology at [phone]. [facility] CT Chest W contrast IVOrdere d By: Ccf Provider on 10-17-2023 [facility] CT CHEST W IVCONon CT CHEST W IVCON * * *Final Report* * * DATE OF EXAM: Oct 16 2023 12:58PM [facility] 0539 - CT CHEST W IVCON / [...] characterized on prior MRI. Small hiatal hernia. Wage And Hour Investigator (topogram) images: Unremarkable. IMPRESSION: Resection of anterior [...] any questions regarding this interpretation, please call [phone]. If you are unable to reach us at the number above, please feel free to contact [facility] eRadiology at [phone]. [id number] Normal [facility] CT Chest W contrast [place] Radiology Study observation (narrative) [facility] CNOVon 10-12-2023 CNOV Office Visit (RADTSA ) ----- MARNIE ARANA ([id number]) 1970 F Date Time Provider Department 10/12/23 [...] Encounter Status:Closed by MARIAN VINES on 10/16/23 [facility] CNOVon 10-11-2023 CNOV Office Visit (RADTSA ) ----- MARNIE ARANA ([id number]) 1970 F Date Time Provider Department 10/11/23 [...] PHYSICIAN: Dr. Jasiel Turner DIAGNOSIS: Stage I, [id number] (AJCC)/Stage IIa ([place]) thymoma (Type AB) PATIENT IDENTIFICATION: This patient was seen in the Department of Radiation Oncology at the [place] with Zeferino Desouza MD. She was accompanied today by her spouse. Final recommendations will be communicated back to the requesting physician by way of the shared medical record, or letter to requesting physician via [place] mail. HISTORY OF PRESENT ILLNESS: Ms. Arana is a 53-year-old woman from [place], [place], who was diagnosed with myasthenia gravis when she presented in May 2023 with symptoms of double vision. Initial workup by her relay repairer included a CT of her orbits which [...] has 2 children, and lives in the [place], [place] area. 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 Normal [facility] CBC W Auto Differential pane l (Bld)on 09-27-2023 Basophils (Bld) [#/Vol] 0.10 10*3/uL Normal <0.11 [facility] Comment on above: Order Comment: Speci men Type: BLOOD SPECIMEN Ordering Facility: [facility] Address: [address] [place] [address] Performed By: #### 5 7021-8 #### [facility] CLIA [id number] [address] [place] [address] [place] Basophils/100 WBC (Bld) 0.8 % Normal [facility] Comment on above: Order Comment: Speci men Type: BLOOD SPECIMEN Ordering Facility: [facility] Address: [address] [place] [address] Performed By: #### 5 7021-8 #### [facility] CLIA [id number] [address] [place] [address] [place] Differential cell count method Nom (Bld) Auto Normal [facility] Comment on above: Order Comment: Speci men Type: BLOOD SPECIMEN Ordering Facility: [facility] Address: [address] [place] [address] Performed By: #### 5 7021-8 #### [facility] CLIA [id number] [address] [place] [address] [place] Eosinophils (Bld) [#/Vol] 0.40 10*3/uL Normal <0.46 [facility] Comment on above: Order Comment: Speci men Type: BLOOD SPECIMEN Ordering Facility: [facility] Address: [address] [place] [address] Performed By: #### 5 7021-8 #### [facility] CLIA [id number] [address] [place] [address] [place] Eosinophils/100 WBC (Bld) 3.4 % Normal [facility] Comment on above: Order Comment: Speci men Type: BLOOD SPECIMEN Ordering Facility: [facility] Address: [address] [place] [address] Performed By: #### 5 7021-8 #### [facility] CLIA [id number] [address] [place] [address] [place] Erythrocyte distribution width (RBC) [Ratio] 13.7 % Normal 11.5-15.0 [facility] Comment on above: Order Comment: Speci men Type: BLOOD SPECIMEN Ordering Facility: [facility] Address: [address] [place] [address] Performed By: #### 5 7021-8 #### [facility] CLIA [id number] [address] [place] [address] [place] Hematocrit (Bld) [Volume fraction] 41.4 % Normal 36.0-46.0 [facility] Comment on above: Order Comment: Speci men Type: BLOOD SPECIMEN Ordering Facility: [facility] Address: [address] [place] [address] Performed By: #### 5 7021-8 #### [facility] CLIA [id number] [address] [place] [address] [place] Hemoglobin (Bld) [Mass/Vol] 13.5 g/dL Normal 11.5-15.5 [facility] Comment on above: Order Comment: Speci men Type: BLOOD SPECIMEN Ordering Facility: [facility] Address: [address] [place] [address] Performed By: #### 5 7021-8 #### [facility] CLIA [id number] [address] [place] [address] [place] Immature granulocytes (Bld) [#/Vol] 0.16 10*3/uL High <0.10 [facility] Comment on above: Order Comment: Speci men Type: BLOOD SPECIMEN Ordering Facility: [facility] Address: [address] [place] [address] Performed By: #### 5 7021-8 #### [facility] CLIA [id number] [address] [place] [address] [place] Immature granulocytes/100 WBC (Bld) 1.4 % Normal [facility] Comment on above: Order Comment: Speci men Type: BLOOD SPECIMEN Ordering Facility: [facility] Address: [address] [place] [address] Performed By: #### 5 7021-8 #### [facility] CLIA [id number] [address] [place] [address] [place] Lymphocytes (Bld) [#/Vol] 3.03 10*3/uL Normal 1.00-4.00 [facility] Comment on above: Order Comment: Speci men Type: BLOOD SPECIMEN Ordering Facility: [facility] Address: [address] [place] [address] Performed By: #### 5 7021-8 #### [facility] CLIA [id number] [address] [place] [address] [place] Lymphocytes/100 WBC (Bld) 25.7 % Normal [facility] Comment on above: Order Comment: Speci men Type: BLOOD SPECIMEN Ordering Facility: [facility] Address: [address] [place] [address] Performed By: #### 5 7021-8 #### [facility] CLIA [id number] [address] [place] [address] [place] MCH (RBC) [Entitic mass] 30.4 pg Normal 26.0-34.0 [facility] Comment on above: Order Comment: Speci men Type: BLOOD SPECIMEN Ordering Facility: [facility] Address: [address] [place] [address] Performed By: #### 5 7021-8 #### [facility] CLIA [id number] [address] [place] [address] [place] MCHC (RBC) [Mass/Vol] 32.6 g/dL Normal 30.5-36.0 [facility] Comment on above: Order Comment: Speci men Type: BLOOD SPECIMEN Ordering Facility: [facility] Address: [address] [place] [address] Performed By: #### 5 7021-8 #### [facility] CLIA [id number] [address] [place] [address] [place] MCV (RBC) [Entitic vol] 93.2 fL Normal 80.0-100.0 [facility] Comment on above: Order Comment: Speci men Type: BLOOD SPECIMEN Ordering Facility: [facility] Address: [address] [place] [address] Performed By: #### 5 7021-8 #### [facility] CLIA [id number] [address] [place] [address] [place] Monocytes (Bld) [#/Vol] 0.62 10*3/uL Normal <0.87 [facility] Comment on above: Order Comment: Speci men Type: BLOOD SPECIMEN Ordering Facility: [facility] Address: [address] [place] [address] Performed By: #### 5 7021-8 #### [facility] CLIA [id number] [address] [place] [address] [place] Monocytes/100 WBC (Bld) 5.3 % Normal [facility] Comment on above: Order Comment: Speci men Type: BLOOD SPECIMEN Ordering Facility: [facility] Address: [address] [place] [address] Performed By: #### 5 7021-8 #### [facility] CLIA [id number] [address] [place] [address] [place] Neutrophils (Bld) [#/Vol] 7.46 10*3/uL Normal 1.45-7.50 [facility] Comment on above: Order Comment: Speci men Type: BLOOD SPECIMEN Ordering Facility: [facility] Address: [address] [place] [address] Performed By: #### 5 7021-8 #### [facility] CLIA [id number] [address] [place] [address] [place] Neutrophils/100 WBC (Bld) 63.4 % Normal [facility] Comment on above: Order Comment: Speci men Type: BLOOD SPECIMEN Ordering Facility: [facility] Address: [address] [place] [address] Performed By: #### 5 7021-8 #### [facility] CLIA [id number] [address] [place] [address] [place] Nucleated RBC (Bld) [#/Vol] 10*3/uL Normal <0.01 [facility] Comment on above: Order Comment: Speci men Type: BLOOD SPECIMEN Ordering Facility: [facility] Address: [address] [place] [address] Performed By: #### 5 7021-8 #### [facility] CLIA [id number] [address] [place] [address] [place] Nucleated RBC/100 WBC (Bld) [Ratio] 0.0 /100 WBC Normal [facility] Comment on above: Order Comment: Speci men Type: BLOOD SPECIMEN Ordering Facility: [facility] Address: [address] [place] [address] Performed By: #### 5 7021-8 #### [facility] CLIA [id number] [address] [place] [address] [place] Platelet mean volume (Bld) [Entitic vol] 9.4 fL Normal 9.0-12.7 [facility] Comment on above: Order Comment: Speci men Type: BLOOD SPECIMEN Ordering Facility: [facility] Address: [address] [place] [address] Performed By: #### 5 7021-8 #### [facility] CLIA [id number] [address] [place] [address] [place] Platelets (Bld) [#/Vol] 337 10*3/uL Normal 150-400 [facility] Comment on above: Order Comment: Speci men Type: BLOOD SPECIMEN Ordering Facility: [facility] Address: [address] [place] [address] Performed By: #### 5 7021-8 #### [facility] CLIA [id number] [address] [place] [address] [place] RBC (Bld) [#/Vol] 4.44 10*6/uL Normal 3.90-5.20 [facility] Comment on above: Order Comment: Speci men Type: BLOOD SPECIMEN Ordering Facility: [facility] Address: [address] [place] [address] Performed By: #### 5 7021-8 #### [facility] CLIA [id number] [address] [place] [address] [place] WBC (Bld) [#/Vol] 11.77 10*3/uL High 3.70-11.00 [facility] Comment on above: Order Comment: Speci men Type: BLOOD SPECIMEN Ordering Facility: [facility] Address: [address] [place] [address] Performed By: #### 5 7021-8 #### [facility] CLIA [id number] [address] [place] [address] [place] CNCOon 09-27-2023 CNCO Letter Text Normal [facility] T3Free SerPl-mCncon 09-27-19 24 Free T3 [Mass/Vol] 3.3 pg/mL Normal 2.3-4.1 [facility] Comment on above: Order Comment: Speci men Type: BLOOD SPECIMEN Ordering Facility: [facility] Address: [address] [place] [address] Performed By: #### 5 7021-8 #### [facility] CLIA [id number] [address] [place] [address] [place] T4 Free SerPl-mCncon 03-21-2 024 Free T4 [Mass/Vol] 0.9 ng/dL Normal 0.9-1.7 [facility] Comment on above: Order Comment: Dalila hemphill Type: BLOOD SPECIMEN Ordering Facility: [facility] Address: [address] [place] [address] Performed By: #### 5 7021-8 #### [facility] CLIA [id number] [address] [place] [address] [place] THYROID PEROXIDASE ANTIBODY BLOODon 09-27-2023 TPO Ab Qn [IU]/mL Normal <5.6 [facility] Comment on above: Order Comment: Dalila hemphill Type: BLOOD SPECIMEN Ordering Facility: [facility] Address: [address] [place] [address] Result Comment: Thyr oid Peroxidase Antibody test is used as an aid in diagnosis of autoimmune thyroid disease. Clinical correlation is required. Performed By: #### 5 8410-2 #### [facility] CLIA [id number] [address] [place] [address] [place] THYROID STIMULATING IMMUNOGL OBULIN BLOODon 09-27-2023 Thyroid stimulating immunoglobulins actual/normal (S) [Relative mass conc] % Normal <0.55 [facility] Comment on above: Order Comment: Dalila hemphill Type: BLOOD SPECIMENOrdering Facility: [facility] Address: [address] [place] [address] Result Comment: Thyr oid Stimulating Immunoglobulin test is used as an aid in diagnosis of autoimmune hyperthyroidism especially in patients with Grave's orbitopathy and dermopathy. Low positive TSH receptor stimulating antibody levels may occasionally be found in patients with autoimmune hypothyroidism. Clinical correlation is required. Performed By: #### T SIGIM ####[facility] [id number] [place] [address] [place] TSI QUALITATIVE Negative Normal Negative [facility] Comment on above: Order Comment: Dalila hemphill Type: BLOOD SPECIMENOrdering Facility: [facility] Address: [address] [place] [address] Performed By: #### T SIGIM ####[facility] [id number] [facility] [id number] [place], [place] [address] [place] TSH SerPl-aCncon 09-27-2023 TSH Qn 2.830 m[IU]/L Normal 0.270-4.200 [facility] Comment on above: Order Comment: Speci men Type: BLOOD SPECIMEN Ordering Facility: [facility] Address: [address] [place] [address] Performed By: #### 5 7021-8 #### [facility] CLIA [id number] [address] [place] [address] [place] [address] [place] US THYROID/PARATHYROIDon US [...] 0 points Echogenicity: Hypoechoic, 2 points Shape: Gdqny-mezg-lqnj, 0 points Margin: Smooth, 0 points Echogenic [...] 1 point Echogenicity: Hypoechoic, 2 points Shape: Wonvg-mbou-sqgi, 0 points Margin: Smooth, 0 points Echogenic [...] 2 points Echogenicity: Hypoechoic, 2 points Shape: Ijywk-muyn-csdt, 0 points Margin: Ill-defined, 0 points Echogenic [...] not consider stability or previous biopsy results. Contract Attorney: PSCB Transcribe Date/Time: Sep 27 2023 11:41A Dictated by : GRACE SCALES MD This examination was interpreted and the report reviewed and electronically signed by: GRACE SCALES MD on Sep 28 2023 8:38AM EST [id number] Normal [facility] CNCOon 09-26-2023 CNCO Letter Text Letter Text Normal [facility] CNPNon 09-26-2023 CNPN Telephone (TERESITA) ----- MARNIE ARAAN ([id number]) 1970 F Date Time Provider Department 09/26/23 JASIEL TURNER During your visit today, we recorded the following information about you: Kandi Price RN 09/26/2023 5:32 PM Signed see letters. RTW on 10/15/2022 Kandi Price RN, BSN, [facility] Allergies As of Date: 09/26/2023 (No Known Allergies) Date Reviewed: 09/21/2023 Reviewed by: Kitty Perez MA - Fully Assessed Reason for Visit: Return To Work Letter [3495] Prescriptions as of 09/27/2023 - ibuprofen (MOTRIN) [...] Encounter Status:Closed by KANDI PRICE on 09/27/23 Normal [facility] CNOVon 09-21-2023 CNOV Office Visit (TERESITA ) ----- MARNIE ARANA ([id number]) 1970 F Date Time Provider Department 09/21/23 3:30 PM KANDY VALLECILLO During your visit today, we recorded the following information about you: Temperature Pulse Blood pressure Weight 98 degrees 67/minute 152/83 95.9 kg Height 1.6 m Kandy Vallecillo APRN.CNP 09/21/2023 6:44 PM Signed [facility] OUTPATIENT THORACIC SURGERY CLINIC NOTE PT NAME: Marnie Arana [facility] NO: [id number] THORACIC SURGEON: Jasiel Turner M.D. DATE OF [...] vision, symptoms began 05/2023. 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 Do not [...] a motor vehicle. Referring Provider: MELISSA HAILE [[id number]] A (more content not included)... Normal [facility] ----- MARNIE ARANA ([id number]) 1970 F Date Time Provider Department 09/21/23 XIANG LAYTN During your visit today, we recorded the [...] Reason for Visit: Follow Up Phone Call [6700] Cmt: follow up call all clear. Prescriptions [...] Status:Closed by XIANG LAY on 09/21/23 Normal [facility] XR CHEST 2V FRONTAL/LATon XR CHEST [...] and soft tissues: Unremarkable. IMPRESSION: See result. Contract Attorney: PSCB Transcribe Date/Time: Sep 21 2023 3:06P Dictated by : QUINTEN LEWIS MD This examination was interpreted and the report reviewed and electronically signed by: QUINTEN LEWIS MD on Sep 21 2023 3:07PM EST [id number] Normal [facility] XR Chest PA and Lateralon [facility] CNPNon 09-17-2023 CNPN Telephone (PODCCP) ----- MARNIE ARANA ([id number]) 1970 F Date Time Provider Department 09/17/23 [...] Reason for Visit: Follow Up Phone Call [3732] Cmt: HERSON f/u all clear Prescriptions as of 09/17/2023 [...] Status:Closed by BARBARA BUSBY on 09/17/23 Normal [facility] Basic metabolic 2000 panelon 09-15-2023 Anion gap [Moles/Vol] 10 mmol/L Normal 9-18 [facility] Comment on above: Order Comment: Speci men Type: BLOOD SPECIMEN Ordering Facility: [facility] Address: [address] [place] [address] Performed By: #### 5 7021-8 #### [facility] CLIA [id number] [address] [place] [address] [place] Calcium [Mass/Vol] 8.9 mg/dL Normal 8.5-10.2 [facility] Comment on above: Order Comment: Speci men Type: BLOOD SPECIMEN Ordering Facility: [facility] Address: [address] [place] [address] Performed By: #### 5 7021-8 #### [facility] CLIA [id number] [address] [place] [address] [place] Chloride [Moles/Vol] 105 mmol/L Normal 97-105 [facility] Comment on above: Order Comment: Speci men Type: BLOOD SPECIMEN Ordering Facility: [facility] Address: [address] [place] [address] Performed By: #### 5 7021-8 #### [facility] CLIA [id number] [address] [place] [address] [place] CO2 [Moles/Vol] 28 mmol/L Normal 22-30 [facility] Comment on above: Order Comment: Speci men Type: BLOOD SPECIMEN Ordering Facility: [facility] Address: [address] [place] [address] Performed By: #### 5 7021-8 #### [facility] CLIA [id number] [address] [place] [address] [place] Creatinine [Mass/Vol] 0.76 mg/dL Normal 0.58-0.96 [facility] Comment on above: Order Comment: Speci men Type: BLOOD SPECIMEN Ordering Facility: [facility] Address: [address] [place] [address] Performed By: #### 5 7021-8 #### [facility] CLIA [id number] [address] [place] [address] [place] Creatinine and Glomerular filtration rate.predicted panel (S/P/Bld) 93 mL/min/1.73m??? Normal >=60 [facility] Comment on above: Order Comment: Speci men Type: BLOOD SPECIMEN Ordering Facility: [facility] Address: [address] [place] [address] Result Comment: Rose Marie mated Glomerular Filtration [...] GFR. Performed By: #### 5 7021-8 #### [facility] CLIA [id number] [address] [place] [address] [place] Glucose [Mass/Vol] 97 mg/dL Normal 74-99 [facility] Comment on above: Order Comment: Speci men Type: BLOOD SPECIMEN Ordering Facility: [facility] Address: [address] [place] [address] Result Comment: The [place] [employer] (ADA) provides guidance for cutoff [...] Standards of Medical Care in Diabetes 2016, [place] [employer]. Diabetes Care. 2016.39(Suppl 1). Performed By: #### 5 7021-8 #### [facility] CLIA [id number] [address] [place] [address] [place] Potassium [Moles/Vol] 4.6 mmol/L Normal 3.7-5.1 [facility] Comment on above: Order Comment: Dalila hemphill Type: BLOOD SPECIMEN Ordering Facility: [facility] Address: [address] [place] [address] Performed By: #### 5 7021-8 #### [facility] CLIA [id number] [address] [place] [address] [place] Sodium [Moles/Vol] 143 mmol/L Normal 136-144 [facility] Comment on above: Order Comment: Ambikai men Type: BLOOD SPECIMEN Ordering Facility: [facility] Address: [address] [place] [address] Performed By: #### 5 7021-8 #### [facility] CLIA [id number] [address] [place] [address] [place] Urea nitrogen [Mass/Vol] 10 mg/dL Normal 7-21 [facility] Comment on above: Order Comment: Speci men Type: BLOOD SPECIMEN Ordering Facility: [facility] Address: [address] [place] [address] Performed By: #### 5 7021-8 #### [facility] CLIA [id number] [address] [place] [address] [place] CBC panel Auto (Bld)on 09-14 Erythrocyte distribution width (RBC) [Ratio] 13.8 % Normal 11.5-15.0 [facility] Comment on above: Order Comment: Speci men Type: BLOOD SPECIMEN Ordering Facility: [facility] Address: [address] [place] [address] Performed By: #### 5 7021-8 #### [facility] CLIA [id number] [address] [place] [address] [place] Hematocrit (Bld) [Volume fraction] 36.9 % Normal 36.0-46.0 [facility] Comment on above: Order Comment: Speci men Type: BLOOD SPECIMEN Ordering Facility: [facility] Address: [address] [place] [address] Performed By: #### 5 7021-8 #### [facility] CLIA [id number] [address] [place] [address] [place] Hemoglobin (Bld) [Mass/Vol] 12.0 g/dL Normal 11.5-15.5 [facility] Comment on above: Order Comment: Speci men Type: BLOOD SPECIMEN Ordering Facility: [facility] Address: [address] [place] [address] Performed By: #### 5 7021-8 #### [facility] CLIA [id number] [address] [place] [address] [place] MCH (RBC) [Entitic mass] 30.5 pg Normal 26.0-34.0 [facility] Comment on above: Order Comment: Speci men Type: BLOOD SPECIMEN Ordering Facility: [facility] Address: [address] [place] [address] Performed By: #### 5 7021-8 #### [facility] CLIA [id number] [address] [place] [address] [place] MCHC (RBC) [Mass/Vol] 32.5 g/dL Normal 30.5-36.0 [facility] Comment on above: Order Comment: Speci men Type: BLOOD SPECIMEN Ordering Facility: [facility] Address: [address] [place] [address] Performed By: #### 5 7021-8 #### [facility] CLIA [id number] [address] [place] [address] [place] MCV (RBC) [Entitic vol] 93.9 fL Normal 80.0-100.0 [facility] Comment on above: Order Comment: Speci men Type: BLOOD SPECIMEN Ordering Facility: [facility] Address: [address] [place] [address] Performed By: #### 5 7021-8 #### [facility] CLIA [id number] [address] [place] [address] [place] Nucleated RBC (Bld) [#/Vol] 10*3/uL Normal <0.01 [facility] Comment on above: Order Comment: Speci men Type: BLOOD SPECIMEN Ordering Facility: [facility] Address: [address] [place] [address] Performed By: #### 5 7021-8 #### [facility] CLIA [id number] [address] [place] [address] [place] Platelet mean volume (Bld) [Entitic vol] 9.7 fL Normal 9.0-12.7 [facility] Comment on above: Order Comment: Speci men Type: BLOOD SPECIMEN Ordering Facility: [facility] Address: [address] [place] [address] Performed By: #### 5 7021-8 #### [facility] CLIA [id number] [address] [place] [address] [place] Platelets (Bld) [#/Vol] 251 10*3/uL Normal 150-400 [facility] Comment on above: Order Comment: Speci men Type: BLOOD SPECIMEN Ordering Facility: [facility] Address: [address] [place] [address] Performed By: #### 5 7021-8 #### [facility] CLIA [id number] [address] [place] [address] [place] RBC (Bld) [#/Vol] 3.93 10*6/uL Normal 3.90-5.20 [facility] Comment on above: Order Comment: Speci men Type: BLOOD SPECIMEN Ordering Facility: [facility] Address: [address] [place] [address] Performed By: #### 5 7021-8 #### [facility] CLIA [id number] [address] [place] [address] [place] WBC (Bld) [#/Vol] 10.76 10*3/uL Normal 3.70-11.00 [facility] Comment on above: Order Comment: Speci men Type: BLOOD SPECIMEN Ordering Facility: [facility] Address: [address] [place] [address] Performed By: #### 5 7021-8 #### [facility] CLIA [id number] [address] [place] [address] [place] CNDSon 09-15-2023 CNDS HNO ID: [id number] Author: JASIEL TURNER MD Service: Thoracic Surgery Author Type: Nurse Practitioner Type: Discharge Summary Filed: 09/17/2023 11:28 Note Text: ----- Attestation signed by Jasiel Turner MD at 09/17/2023 11:28 AM I agree with the discharge summary created by my nurse practitioner. Jasiel Turner MD ----- Department of Thoracic Surgery Discharge Summary (Template ID [id number]) PATIENT NAME: Marnie Arana ADMISSION DATE: 09/13/2023 [...] expansion and no air leak. Right pleural shasta removed but she was discharged home with [...] (09/13/2023) Summary (09/13/2023) Myasthenia gravis without exacerbation ([facility]) () Consults: None Procedures/Radiology: None Information Provided [...] Your Medications These medications were sent to [facility] [address] [place] [address] Hours: Sunday-Sunday 7am-8pm, Sunday, Sunday and Holidays [...] Time Provider (more content not included)... Normal [facility] NURSING PROGon 09-15-2023 NURSING PROG HNO ID: [id number] Author: LISA ALBRECHT RN Service: Nursing Author Type: Registered Nurse Type: Nursing Progress Note Filed: 09/15/2023 12:18 Note Text: Other: Patient discharged home with family. Patient left unit in stable condition via wheelchair. AVS instructions given. Normal [facility] XR CHEST 1V FRONTAL PORTon 0 [...] LEFT lateral chest wall. IMPRESSION: See result Contract Attorney: PSCB Transcribe Date/Time: Sep 15 2023 6:49A Dictated by : VALARIE BEST MD This examination was interpreted and the report reviewed and electronically signed by: VALARIE BEST MD on Sep 15 2023 6:51AM EST [id number] Normal [facility] Basic metabolic 2000 panelon 09-14-2023 Anion gap [Moles/Vol] 6 mmol/L Low 9-18 [facility] Comment on above: Order Comment: Speci men Type: BLOOD SPECIMEN Ordering Facility: [facility] Address: [address] [place] [address] Performed By: #### 5 8410-2 #### [facility] CLIA [id number] [address] [place] [address] [place] Calcium [Mass/Vol] 9.0 mg/dL Normal 8.5-10.2 [facility] Comment on above: Order Comment: Speci men Type: BLOOD SPECIMEN Ordering Facility: [facility] Address: [address] [place] [address] Performed By: #### 5 8410-2 #### [facility] CLIA [id number] [address] [place] [address] [place] Chloride [Moles/Vol] 103 mmol/L Normal 97-105 [facility] Comment on above: Order Comment: Speci men Type: BLOOD SPECIMEN Ordering Facility: [facility] Address: [address] [place] [address] Performed By: #### 5 8410-2 #### [facility] CLIA [id number] [address] [place] [address] [place] CO2 [Moles/Vol] 29 mmol/L Normal 22-30 [facility] Comment on above: Order Comment: Speci men Type: BLOOD SPECIMEN Ordering Facility: [facility] Address: [address] [place] [address] Performed By: #### 5 8410-2 #### [facility] CLIA [id number] [address] [place] [address] [place] Creatinine [Mass/Vol] 0.77 mg/dL Normal 0.58-0.96 [facility] Comment on above: Order Comment: Speci men Type: BLOOD SPECIMEN Ordering Facility: [facility] Address: [address] [place] [address] Performed By: #### 5 8410-2 #### [facility] CLIA [id number] [address] [place] [address] [place] Creatinine and Glomerular filtration rate.predicted panel (S/P/Bld) 91 mL/min/1.73m??? Normal >=60 [facility] Comment on above: Order Comment: Dalila hemphill Type: BLOOD SPECIMEN Ordering Facility: [facility] Address: [address] [place] [address] Result Comment: Rose Marie mated Glomerular Filtration [...] reflect actual GFR. Performed By: #### 5 8410-2 #### [facility] CLIA [id number] [address] [place] [address] [place] Glucose [Mass/Vol] 113 mg/dL High 74-99 [facility] Comment on above: Order Comment: Dalila hemphill Type: BLOOD SPECIMEN Ordering Facility: [facility] Address: [address] [place] [address] Result Comment: The [place] Diabetes Association (ADA) provides guidance for cutoff [...] Standards of Medical Care in Diabetes 2016, [place] [employer]. Diabetes Care. 2016.39(Suppl 1). Performed By: #### 5 8410-2 #### [facility] CLIA [id number] [address] [place] [address] [place] Potassium [Moles/Vol] 4.3 mmol/L Normal 3.7-5.1 [facility] Comment on above: Order Comment: Speci men Type: BLOOD SPECIMEN Ordering Facility: [facility] Address: [address] [place] [address] Performed By: #### 5 8410-2 #### [facility] CLIA [id number] [address] [place] [address] [place] Sodium [Moles/Vol] 138 mmol/L Normal 136-144 [facility] Comment on above: Order Comment: Speci men Type: BLOOD SPECIMEN Ordering Facility: [facility] Address: [address] [place] [address] Performed By: #### 5 8410-2 #### [facility] CLIA [id number] [address] [place] [address] [place] Urea nitrogen [Mass/Vol] 8 mg/dL Normal 7-21 [facility] Comment on above: Order Comment: Speci men Type: BLOOD SPECIMEN Ordering Facility: [facility] Address: [address] [place] [address] Performed By: #### 5 8410-2 #### [facility] CLIA [id number] [address] [place] [address] [place] Anion gap [Moles/Vol] 7 mmol/L Low 9-18 [facility] Comment on above: Order Comment: Speci men Type: BLOOD SPECIMEN Ordering Facility: [facility] Address: [address] [place] [address] Performed By: #### 5 7021-8 #### [facility] CLIA [id number] [address] [place] [address] [place] Calcium [Mass/Vol] 8.3 mg/dL Low 8.5-10.2 [facility] Comment on above: Order Comment: Speci men Type: BLOOD SPECIMEN Ordering Facility: [facility] Address: [address] [place] [address] Performed By: #### 5 7021-8 #### [facility] CLIA [id number] [address] [place] [address] [place] Chloride [Moles/Vol] 102 mmol/L Normal 97-105 [facility] Comment on above: Order Comment: Speci men Type: BLOOD SPECIMEN Ordering Facility: [facility] Address: [address] [place] [address] Performed By: #### 5 7021-8 #### [facility] CLIA [id number] [address] [place] [address] [place] CO2 [Moles/Vol] 26 mmol/L Normal 22-30 [facility] Comment on above: Order Comment: Speci men Type: BLOOD SPECIMEN Ordering Facility: [facility] Address: [address] [place] [address] Performed By: #### 5 7021-8 #### [facility] CLIA [id number] [address] [place] [address] [place] Creatinine [Mass/Vol] 0.76 mg/dL Normal 0.58-0.96 [facility] Comment on above: Order Comment: Speci men Type: BLOOD SPECIMEN Ordering Facility: [facility] Address: [address] [place] [address] Performed By: #### 5 7021-8 #### [facility] CLIA [id number] [address] [place] [address] [place] Creatinine and Glomerular filtration rate.predicted panel (S/P/Bld) 93 mL/min/1.73m??? Normal >=60 [facility] Comment on above: Order Comment: Speci men Type: BLOOD SPECIMEN Ordering Facility: [facility] Address: [address] [place] [address] Result Comment: Ros Emarie mated Glomerular Filtration Rate (eGFR) is calculated [...] GFR. Performed By: #### 5 7021-8 #### [facility] CLIA [id number] [address] [place] [address] [place] Glucose [Mass/Vol] 384 mg/dL High 74-99 [facility] Comment on above: Order Comment: Speci men Type: BLOOD SPECIMEN Ordering Facility: [facility] Address: [address] [place] [address] Result Comment: The [place] Diabetes Association (ADA) provides guidance for cutoff [...] Standards of Medical Care in Diabetes 2016, [place] [employer]. Diabetes Care. 2016.39(Suppl 1). Performed By: #### 5 7021-8 #### [facility] CLIA [id number] [address] [place] [address] [place] Potassium [Moles/Vol] 5.6 mmol/L High 3.7-5.1 [facility] Comment on above: Order Comment: Speci men Type: BLOOD SPECIMEN Ordering Facility: [facility] Address: [address] [place] [address] Performed By: #### 5 7021-8 #### [facility] CLIA [id number] [address] [place], [place] [address] [place] Sodium [Moles/Vol] 135 mmol/L Low 136-144 [facility] Comment on above: Order Comment: Speci men Type: BLOOD SPECIMEN Ordering Facility: [facility] Address: [address] [place] [address] Performed By: #### 5 7021-8 #### [facility] CLIA [id number] [address] [place] [address] [place] Urea nitrogen [Mass/Vol] 8 mg/dL Normal 7-21 [facility] Comment on above: Order Comment: Speci men Type: BLOOD SPECIMEN Ordering Facility: [facility] Address: [address] [place] [address] Performed By: #### 5 7021-8 #### [facility] CLIA [id number] [address] [place] [address] [place] CBC panel Auto (Bld)on 09-13 Erythrocyte distribution width (RBC) [Ratio] 13.8 % Normal 11.5-15.0 [facility] Comment on above: Order Comment: Speci men Type: BLOOD SPECIMEN Ordering Facility: [facility] Address: [address] [place] [address] Performed By: #### 5 8410-2 #### [facility] CLIA [id number] [address] [place] [address] [place] Hematocrit (Bld) [Volume fraction] 37.8 % Normal 36.0-46.0 [facility] Comment on above: Order Comment: Speci men Type: BLOOD SPECIMEN Ordering Facility: [facility] Address: [address] [place] [address] Performed By: #### 5 8410-2 #### [facility] CLIA [id number] [address] [place] [address] [place] Hemoglobin (Bld) [Mass/Vol] 12.1 g/dL Normal 11.5-15.5 [facility] Comment on above: Order Comment: Speci men Type: BLOOD SPECIMEN Ordering Facility: [facility] Address: [address] [place] [address] Performed By: #### 5 8410-2 #### [facility] CLIA [id number] [address] [place] [address] [place] MCH (RBC) [Entitic mass] 29.7 pg Normal 26.0-34.0 [facility] Comment on above: Order Comment: Speci men Type: BLOOD SPECIMEN Ordering Facility: [facility] Address: [address] [place] [address] Performed By: #### 5 8410-2 #### [facility] CLIA [id number] [address] [place] [address] [place] MCHC (RBC) [Mass/Vol] 32.0 g/dL Normal 30.5-36.0 [facility] Comment on above: Order Comment: Speci men Type: BLOOD SPECIMEN Ordering Facility: [facility] Address: [address] [place] [address] Performed By: #### 5 8410-2 #### [facility] CLIA [id number] [address] [place] [address] [place] MCV (RBC) [Entitic vol] 92.9 fL Normal 80.0-100.0 [facility] Comment on above: Order Comment: Speci men Type: BLOOD SPECIMEN Ordering Facility: [facility] Address: [address] [place] [address] Performed By: #### 5 8410-2 #### [facility] CLIA [id number] [address] [place] [address] [place] Nucleated RBC (Bld) [#/Vol] 10*3/uL Normal <0.01 [facility] Comment on above: Order Comment: Speci men Type: BLOOD SPECIMEN Ordering Facility: [facility] Address: [address] [place] [address] Performed By: #### 5 8410-2 #### [facility] CLIA [id number] [address] [place] [address] [place] Platelet mean volume (Bld) [Entitic vol] 9.8 fL Normal 9.0-12.7 [facility] Comment on above: Order Comment: Speci men Type: BLOOD SPECIMEN Ordering Facility: [facility] Address: [address] [place] [address] Performed By: #### 5 8410-2 #### [facility] CLIA [id number] [address] [place] [address] [place] Platelets (Bld) [#/Vol] 306 10*3/uL Normal 150-400 [facility] Comment on above: Order Comment: Speci men Type: BLOOD SPECIMEN Ordering Facility: [facility] Address: [address] [place] [address] Performed By: #### 5 8410-2 #### [facility] CLIA [id number] [address] [place] [address] [place] RBC (Bld) [#/Vol] 4.07 10*6/uL Normal 3.90-5.20 [facility] Comment on above: Order Comment: Speci men Type: BLOOD SPECIMEN Ordering Facility: [facility] Address: [address] [place] [address] Performed By: #### 5 8410-2 #### [facility] CLIA [id number] [address] [place] [address] [place] WBC (Bld) [#/Vol] 11.18 10*3/uL High 3.70-11.00 [facility] Comment on above: Order Comment: Speci men Type: BLOOD SPECIMEN Ordering Facility: [facility] Address: [address] [place] [address] Performed By: #### 5 8410-2 #### [facility] CLIA [id number] [address] [place] [address] [place] Erythrocyte distribution width (RBC) [Ratio] 14.0 % Normal 11.5-15.0 [facility] Comment on above: Order Comment: Speci men Type: BLOOD SPECIMEN Ordering Facility: [facility] Address: [address] [place] [address] Performed By: #### 5 8410-2 #### [facility] CLIA [id number] [address] [place] [address] [place] Hematocrit (Bld) [Volume fraction] 33.5 % Low 36.0-46.0 [facility] Comment on above: Order Comment: Speci men Type: BLOOD SPECIMEN Ordering Facility: [facility] Address: [address] [place] [address] Performed By: #### 5 8410-2 #### [facility] CLIA [id number] [address] [place] [address] [place] Hemoglobin (Bld) [Mass/Vol] 10.5 g/dL Low 11.5-15.5 [facility] Comment on above: Order Comment: Speci men Type: BLOOD SPECIMEN Ordering Facility: [facility] Address: [address] [place] [address] Performed By: #### 5 8410-2 #### [facility] CLIA [id number] [address] [place] [address] [place] MCH (RBC) [Entitic mass] 30.1 pg Normal 26.0-34.0 [facility] Comment on above: Order Comment: Speci men Type: BLOOD SPECIMEN Ordering Facility: [facility] Address: [address] [place] [address] Performed By: #### 5 8410-2 #### [facility] CLIA [id number] [address] [place] [address] [place] MCHC (RBC) [Mass/Vol] 31.3 g/dL Normal 30.5-36.0 [facility] Comment on above: Order Comment: Speci men Type: BLOOD SPECIMEN Ordering Facility: [facility] Address: [address] [place] [address] Performed By: #### 5 8410-2 #### [facility] CLIA [id number] [address] [place] [address] [place] MCV (RBC) [Entitic vol] 96.0 fL Normal 80.0-100.0 [facility] Comment on above: Order Comment: Speci men Type: BLOOD SPECIMEN Ordering Facility: [facility] Address: [address] [place] [address] Performed By: #### 5 8410-2 #### [facility] CLIA [id number] [address] [place] [address] [place] Nucleated RBC (Bld) [#/Vol] 10*3/uL Normal <0.01 [facility] Comment on above: Order Comment: Speci men Type: BLOOD SPECIMEN Ordering Facility: [facility] Address: [address] [place] [address] Performed By: #### 5 8410-2 #### [facility] CLIA [id number] [address] [place] [address] [place] Platelet mean volume (Bld) [Entitic vol] 10.1 fL Normal 9.0-12.7 [facility] Comment on above: Order Comment: Speci men Type: BLOOD SPECIMEN Ordering Facility: [facility] Address: [address] [place] [address] Performed By: #### 5 8410-2 #### [facility] CLIA [id number] [address] [place] [address] [place] Platelets (Bld) [#/Vol] 254 10*3/uL Normal 150-400 [facility] Comment on above: Order Comment: Speci men Type: BLOOD SPECIMEN Ordering Facility: [facility] Address: [address] [place] [address] Performed By: #### 5 8410-2 #### [facility] CLIA [id number] [address] [place] [address] [place] RBC (Bld) [#/Vol] 3.49 10*6/uL Low 3.90-5.20 [facility] Comment on above: Order Comment: Speci men Type: BLOOD SPECIMEN Ordering Facility: [facility] Address: [address] [place] [address] Performed By: #### 5 8410-2 #### [facility] CLIA [id number] [address] [place] [address] [place] WBC (Bld) [#/Vol] 10.91 10*3/uL Normal 3.70-11.00 [facility] Comment on above: Order Comment: Speci men Type: BLOOD SPECIMEN Ordering Facility: [facility] Address: [address] [place] [address] Performed By: #### 5 8410-2 #### [facility] CLIA [id number] [address] [place] [address] [place] XR CHEST 1V [...] cardiomediastinal silhouette. Other: . IMPRESSION: See result. Contract Attorney: JAIME Transcribe Date/Time: Sep 14 2023 6:45A Dictated by : PROSPER JENSEN MD This examination was interpreted and the report reviewed and electronically signed by: XU TREVINO MD on Sep 14 2023 9:29AM EST [id number] Normal [facility] ANES POSTPROC EVALon 024 ANES POSTPROC EVAL HNO ID: [id number] Author: TYLER TEMPLE MD Service: ? Author Type: Anesthesiologist Type: Anesthesia Postprocedure Evaluation Filed: 09/13/2023 15:13 Note Text: POST ANESTHESIA EVALUATION NOTE : 1970 Procedure Summary Date: 09/13/23 Room / Location: [address] AND VAS Anesthesia Start: 701 [...] September 13, 2023 TIME: 3:12 PM CSN: [id number] Normal [facility] ANES PRE-OPon 09-13-2023 ANES PRE-OP HNO ID: [id number] Author: TYLER TEMPLE MD Service: ? Author Type: Anesthesiologist Type: Anesthesia Preprocedure Evaluation Filed: 09/13/2023 07:03 Note Text: ANESTHESIOLOGY DAY OF SURGERY NOTE : 1970 Procedure Information Date/Time: 09/13/23629 Procedure: THYMECTOMY, SPLIT OR TRANSTHORACIC Robotic b/l thymectomy C 2.5-3 (Bilateral: Chest) Location: [place] [address] / [facility] CT AND VAS Surgeons: Jasiel Turner MD [...] and consent discussed: yes. Patient / Responsible Constitution Party agrees to proceed: yes Patient / Surrogate agrees to blood products: Yes Significant changes in the patient condition since the History and Physical, not otherwise documented in primary service progress note: no. Potential Anesthesia issues that may suggest increased risk of complications or contraindication to planned procedure: none. Discussed the possibility of lip / dental damage: yes Vitals Value Taken Time BP 157/77 09/13/2315 Pulse 60 09/13/23614 Resp 18 09/13/23614 Temp 36.2 ?C (97.2 ?F) 09/13/23 06 SpO2 96 % 09/13/23614 Facility-Administered Medications as [...] September 13, 2023 TIME: 6:59 AM CSN: [id number] [facility] BRIEF OP NOTon 09-13-2023 BRIEF OP NOT HNO ID: [id number] Author: LINK MAYO MD Service: Thoracic Surgery Author Type: Resident Type: Brief Op Note Filed: 09/13/2023 12:10 Note Text: BRIEF OP NOTE LOG ID: [id number] Surgery/Procedure Date: 09/13/2023 Incision/Procedure Start Time: 8:00 AM Incision Close/Procedure End Time: 11:23 AM Surgeon(s)/Proceduralist( s) and Roller Maker(s): Surgeon(s) and Role: * Jasiel Turner MD [...] 13, 2023 TIME: 12:08 PM PAGER/CONTACT #: [phone] [facility] OPERATIVE NOon 09-13-2023 OPERATIVE NO HNO ID: [id number] Author: JASILE TURNER MD Service: Thoracic Surgery Author Type: Physician Type: Operative Report Filed: 10/02/2023 11:08 Note Text: [facility] - Operative Report [address] [address] [place] MARNIE ARANA : 1970 AGE: 53. SEX: F PATIENT TYPE: I HOSP SVC: THO LOCATION: [id number] ATTENDING PHYSICIAN: Jasiel Turner M.D. CSN NUMBER: [id number] DATE OF SURGERY/PROCEDURE: 09/13/2023 INCISION/PROCEDURE START TIME: 8 a.m. INCISION CLOSE/PROCEDURE END TIME: 11:23 a.m. PREOPERATIVE DIAGNOSIS: Thymoma and myasthenia gravis. POSTOPERATIVE DIAGNOSIS: Thymoma and myasthenia gravis. SURGEON: Jasiel Turner M.D. BEATING MACHINE OPERATOR: Link Mayo M.D. SURGERY/PROCEDURE: Bilateral robotic assisted [...] the text. COMPLICATIONS: None. Jasiel Turner M.D. SR:[id number] /[id number] Normal [facility] SURGICAL PATHOLOGYon 024 BLOCK FOR ADDITIONAL BIOMARKERS/MOLECULAR STUDIES B1 Normal [facility] Comment on above: Order Comment: Speci men Type: TISSUE SPECIMENOrdering Facility: [facility] Address: [address] [place] [address] Performed By: #### S ####[facility] [id number] [place] [address] [place] CASE REPORT Normal [facility] Comment on above: Order Comment: Speci men Type: TISSUE SPECIMENOrdering Facility: [facility] Address: [address] [place] [address] Result Comment: Surg [facility] Pathology Report Case: [id number] Authorizing Provider: Jasiel Turner MD Collected: 09/13/2023 09:22 AM Ordering Location: Admitting Received: 09/13/2023 01:40 PM Pathologist: Kandy Mcghee MD Specimens: A) - PERICARDIUM, pericardium B) - THYMUS RESECTION, total thymectomy with thymoma Performed By: #### S ####[facility] [id number] [address] [place] CLINICAL HISTORY Normal [facility] Comment on above: Order Comment: Speci men Type: TISSUE SPECIMENOrdering Facility: [facility] Address: [address] [place] [address] Result Comment: Pre- op diagnosis: Myasthenia gravis (HCC) [G70.00] Performed By: #### S ####[facility] [id number] [address] [place] DIAGNOSIS COMMENT Normal [facility] Comment on above: Order Comment: Speci men Type: TISSUE SPECIMENOrdering Facility: [facility] Address: [address] [place] [address] Result Comment: A. A Movat stain has [...] laboratory within [facility] [place] ([facility], [facility], [facility], [facility], [facility], [facility], or [facility]) in a manner consistent with CLIA requirements. One or more of these tests have not been cleared or approved by the FDA. [facility] is regulated under CLIA as qualified to perform high-complexity testing. These tests are used for clinical purposes. They should not be regarded as investigational or for research. Positive and negative controls stain appropriately. Performed By: #### S ####[facility] [id number] [address] FINAL DIAGNOSIS Normal [facility] Comment on above: Order Comment: Speci men Type: TISSUE SPECIMENOrdering Facility: [facility] Address: [address] [place] [address] Result Comment: A. P ericardium, excision: - Negative for neoplasm. B. Thymus, total thymectomy: - Thymoma, World Health Organization (WHO), Type AB, 4.5 cm - Four (4) lymph nodes negative for neoplasm. Performed By: #### S ####[facility] [id number] [address] FINAL PERFORMING LAB Normal [facility] Comment on above: Order Comment: Speci men Type: TISSUE SPECIMENOrdering Facility: [facility] Address: [address] [place] [address] Result Comment: Diag nostic interpretation performed at [facility], [address] [place] [address] CLIA# [id number] Second Cutter: George Dhillon M.D. Performed By: #### S ####[facility] [id number] [address] GROSS DESCRIPTION A. PERICARDIUM Normal [facility] Comment on above: Order Comment: Speci men Type: TISSUE SPECIMENOrdering Facility: [facility] Address: [address] [place] [address] Result Comment: Rece ived fresh labeled pericardium is an irregularly shaped, pink-greco, heavily cauterized membranous tissue fragment measuring 0.8 x 0.7 x 0.2 cm. Sectioned and entirely submitted in cassette A1. CRISTO September 13, 2023 2:46 PM Gross examination performed at [facility], [address] [place] [address] CLIA# [id number] B. THYMUS RESECTION Received in formalin labeled [...] are taken and attached to the case. Manager Of Training sections are submitted as follows: B1-B2: Mass with anterior and posterior surface B3: Central mass B4: Anterior surface B5: Posterior surface B6: Right superior thymus B7: Left thymus B8: Right thymus B9: 4 intact lymph nodes [facility] September 14, 2023 11:54 AM Gross examination performed at [facility], [address] [place], [place] [address] CLIA# [id number] Performed By: #### S ####[facility] [id number] [place] [address] [address] [place] SYNOPTIC REPORT THYMUS Normal [facility] Comment on above: Order Comment: Speci men Type: TISSUE SPECIMENOrdering Facility: [facility] Address: [address] [place] [address] Result Comment: THYM US: RESECTION - All [...] Age-appropriate involutional changes Performed By: #### S ####[facility] [id number] [address] [place] XR CHEST 1V FRONTAL [...] LEFT lateral chest wall. IMPRESSION: See result Contract Attorney: JAIME Transcribe Date/Time: Sep 13 2023 2:20P Dictated by : VALARIE BEST MD This examination was interpreted and the report reviewed and electronically signed by: VALARIE BEST MD on Sep 13 2023 2:21PM EST [id number] Normal [facility] CNOVon 09-12-2023 CNOV Office Visit (CARTMN ) ----- MARNIE ARANA ([id number]) 1970 F Date Time Provider Department 09/12/23 [...] Tests/Procedures Stauffer (more content not included)... Normal [facility] CNOV Office Visit (THORMN ) ----- MARNIE ARANA ([id number]) 1970 F Date Time Provider Department 09/12/23 [...] to the requesting physician. Jasiel Turner MD [facility] STAFF PHYSICIAN NOTE OF PERSONAL INVOLVEMENT IN [...] Status:Closed by JASIEL TURNER on 09/12/23 Normal [facility] CONFIRM BLOOD TYPEon 024 ABO O Normal [facility] Comment on above: Order Comment: Speci men Type: BLOOD SPECIMEN Ordering Facility: [facility] Address: [address] [place] [address] Performed By: #### C ONABO #### [facility] CLIA [id number] [address] [place], [place] [address] [address] [place] Rh Nom (Bld) Positive Normal [facility] Comment on above: Order Comment: Speci men Type: BLOOD SPECIMEN Ordering Facility: [facility] Address: [address] [place] [address] Performed By: #### C ONABO #### CC [facility] CLIA [id number] [address] [place] [address] [place] Comprehensive metabolic 2000 panelon 09-12-2023 Albumin [Mass/Vol] 4.7 g/dL Normal 3.9-4.9 [facility] Comment on above: Order Comment: Speci men Type: BLOOD SPECIMEN Ordering Facility: [facility] Address: [address] [place] [address] Performed By: #### 5 7021-8 #### [facility] CLIA [id number] [address] [place] [address] [place] ALP [Catalytic activity/Vol] 71 U/L Normal 34-123 [facility] Comment on above: Order Comment: Speci men Type: BLOOD SPECIMEN Ordering Facility: [facility] Address: [address] [place] [address] Performed By: #### 5 7021-8 #### [facility] CLIA [id number] [address] [place] [address] [place] ALT [Catalytic activity/Vol] 19 U/L Normal 7-38 [facility] Comment on above: Order Comment: Speci men Type: BLOOD SPECIMEN Ordering Facility: [facility] Address: [address] [place] [address] Performed By: #### 5 7021-8 #### [facility] CLIA [id number] [address] [place] [address] [place] Anion gap [Moles/Vol] 9 mmol/L Normal 9-18 [facility] Comment on above: Order Comment: Speci men Type: BLOOD SPECIMEN Ordering Facility: [facility] Address: [address] [place] [address] Performed By: #### 5 7021-8 #### [facility] CLIA [id number] [address] [place] [address] [place] AST [Catalytic activity/Vol] 16 U/L Normal 13-35 [facility] Comment on above: Order Comment: Speci men Type: BLOOD SPECIMEN Ordering Facility: [facility] Address: [address] [place] [address] Performed By: #### 5 7021-8 #### [facility] CLIA [id number] [address] [place] [address] [place] Bilirubin [Mass/Vol] 0.3 mg/dL Normal 0.2-1.3 [facility] Comment on above: Order Comment: Speci men Type: BLOOD SPECIMEN Ordering Facility: [facility] Address: [address] [place] [address] Performed By: #### 5 7021-8 #### [facility] CLIA [id number] [address] [place] [address] [place] Calcium [Mass/Vol] 9.5 mg/dL Normal 8.5-10.2 [facility] Comment on above: Order Comment: Speci men Type: BLOOD SPECIMEN Ordering Facility: [facility] Address: [address] [place] [address] Performed By: #### 5 7021-8 #### [facility] CLIA [id number] [address] [place] [address] [place] Chloride [Moles/Vol] 103 mmol/L Normal 97-105 [facility] Comment on above: Order Comment: Speci men Type: BLOOD SPECIMEN Ordering Facility: [facility] Address: [address] [place] [address] Performed By: #### 5 7021-8 #### [facility] CLIA [id number] [address] [place] [address] [place] CO2 [Moles/Vol] 28 mmol/L Normal 22-30 [facility] Comment on above: Order Comment: Speci men Type: BLOOD SPECIMEN Ordering Facility: [facility] Address: [address] [place] [address] Performed By: #### 5 7021-8 #### [facility] CLIA [id number] [address] [place] [address] [place] Creatinine [Mass/Vol] 0.76 mg/dL Normal 0.58-0.96 [facility] Comment on above: Order Comment: Dalila hemphill Type: BLOOD SPECIMEN Ordering Facility: [facility] Address: [address] [place] [address] Performed By: #### 5 7021-8 #### [facility] CLIA [id number] [address] [place] [address] [place] Creatinine and Glomerular filtration rate.predicted panel (S/P/Bld) 93 mL/min/1.73m??? Normal >=60 [facility] Comment on above: Order Comment: Dalila hemphill Type: BLOOD SPECIMEN Ordering Facility: [facility] Address: [address] [place] [address] Result Comment: Rose Marie mated Glomerular Filtration [...] GFR. Performed By: #### 5 7021-8 #### [facility] CLIA [id number] [address] [place] [address] [place] Glucose [Mass/Vol] 138 mg/dL High 74-99 [facility] Comment on above: Order Comment: Dalila hemphill Type: BLOOD SPECIMEN Ordering Facility: [facility] Address: [address] [place] [address] Result Comment: The [place] [employer] (ADA) provides guidance for cutoff [...] Standards of Medical Care in Diabetes 2016, [place] [employer]. Diabetes Care. 2016.39(Suppl 1). Performed By: #### 5 7021-8 #### [facility] CLIA [id number] [address] [place] [address] [place] Potassium [Moles/Vol] 4.3 mmol/L Normal 3.7-5.1 [facility] Comment on above: Order Comment: Speci men Type: BLOOD SPECIMEN Ordering Facility: [facility] Address: [address] [place] [address] Performed By: #### 5 7021-8 #### [facility] CLIA [id number] [address] [place] [address] [place] Protein [Mass/Vol] 7.3 g/dL Normal 6.3-8.0 [facility] Comment on above: Order Comment: Speci men Type: BLOOD SPECIMEN Ordering Facility: [facility] Address: [address] [place] [address] Performed By: #### 5 7021-8 #### [facility] CLIA [id number] [address] [place] [address] [place] Sodium [Moles/Vol] 140 mmol/L Normal 136-144 [facility] Comment on above: Order Comment: Speci men Type: BLOOD SPECIMEN Ordering Facility: [facility] Address: [address] [place] [address] Performed By: #### 5 7021-8 #### [facility] CLIA [id number] [address] [place] [address] [place] Urea nitrogen [Mass/Vol] 13 mg/dL Normal 7-21 [facility] Comment on above: Order Comment: Speci men Type: BLOOD SPECIMEN Ordering Facility: [facility] Address: [address] [place] [address] Performed By: #### 5 7021-8 #### [facility] CLIA [id number] [address] [place] [address] [place] [address] [place] ECG COMPLETEon 09-12-2023 ECG COMPLETE Ventricular Rate : 5 7 BPM Atrial Rate : 57 BPM P-R Interval : 154 ms QRS Duration : 84 ms Q-T Interval : 444 ms QTC Calculation(Bazett) : 432 ms Calculated P [place] : 42 degrees Calculated R [place] : -2 degrees Calculated T [place] : 19 degrees SINUS BRADYCARDIA OTHERWISE NORMAL ECG Confirmed by DYLAN CHANG MD (22) on 09/24/2023 1:53:31 PM NAME : MARNIE ARANA PID : [id number] : 1970 Gender : Female Race : ORD : [id number] Procedure Date : Sep 12 2023 12:07:35 Edit Date : Sep 24 2023 13:54:47 Diagnosis: SINUS BRADYCARDIA OTHERWISE NORMAL ECG Confirmed by DYLAN CHANG MD (22) on 09/24/2023 1:53:31 PM Test Reason : Location : 314 : [facility] Overread By : DYLAN CHANG MD Edited By : DYLAN CHANG MD Referred By : JASIEL TURNER Acquired by : ANTONETTE RON [facility] ECHOon 09-12-2023 Echocardiography Echocardiography Rep ort: Transthoracic Echo [facility] J1-5 Date of service: 09/12/2023 10:59:46 AM FENCE INSTALLER Ordering physician: JASIEL TURNER Indication: Pre-op non qualitative field project manager: Clark Dhillon Fellow: Ronald Piña Interpreting physician: [...] * * Final * * * CC [employer] Medical Image : [id number] Normal [facility] PT panel Coag (PPP)on 2023 INR Coag (PPP) [Relative time] 1.0 {INR} Normal 0.9-1.3 [facility] Comment on above: Order Comment: Speci men Type: BLOOD SPECIMEN Ordering Facility: [facility] Address: [address] [place] [address] Result Comment: Crissy min K Antagonist (VKA) Therapeutic Range: INR 2 to 3 (Target INR of 2.5) Note: For patients treated with VKA drugs, such as warfarin, the [place] [employer] 2012 Guideline recommends [...] to 3.5 (target INR of 3). Nawaf GH, et al. Chest 2012, 141:7S-47S Cynthia IRIZARRY et al. [facility] 2017, 70: 252-289 Performed By: #### 5 8410-2 #### [facility] CLIA [id number] [address] [place] [address] [place] PT Coag (PPP) [Time] 10.8 s Normal 9.7-13.0 [facility] Comment on above: Order Comment: Speci men Type: BLOOD SPECIMEN Ordering Facility: [facility] Address: [address] [place] [address] Performed By: #### 5 8410-2 #### [facility] CLIA [id number] [address] [place] [address] [place] STAPH AUREUS PCRon S. aureus and MRSA panel DESMOND+probe (Nose) Normal Negative [facility] Comment on above: Order Comment: Speci men Type: BLOOD SPECIMEN Ordering Facility: [facility] Address: [address] [place] [address] Result Comment: Nega tive for Staphylococcus aureus by PCR. Negative for MRSA by PCR Performed By: #### 5 8410-2 #### [facility] CLIA [id number] [address] [place] [address] [place] TYPE AND SCREEN,30 DAYon ABO O Normal [facility] Comment on above: Order Comment: Speci men Type: BLOOD SPECIMEN Ordering Facility: [facility] Address: [address] [place] [address] Performed By: #### 5 8410-2 #### [facility] CLIA [id number] [address] [place] [address] [place] HISTORICAL AB SCR STATUS Negative Normal [facility] Comment on above: Order Comment: Speci men Type: BLOOD SPECIMEN Ordering Facility: [facility] Address: [address] [place] [address] Performed By: #### 5 8410-2 #### [facility] CLIA [id number] [address] [place] [address] [place] Rh Nom (Bld) Positive Normal [facility] Comment on above: Order Comment: Speci men Type: BLOOD SPECIMEN Ordering Facility: [facility] Address: [address] [place] [address] Performed By: #### 5 8410-2 #### [facility] CLIA [id number] [address] [place] [address] [place] URINALYSIS, DIPSTICK ONLYon 09-12-2023 Bilirubin Ql (U) Negative Normal Negative [facility] Comment on above: Order Comment: Speci men Type: URINE SPECIMEN Ordering Facility: [facility] Address: [address] [place] [address] Performed By: #### U A #### [facility] CLIA [id number] [address] [place] [address] [place] Clarity (Unsp spec) Clear Normal Clear [facility] Comment on above: Order Comment: Speci men Type: URINE SPECIMEN Ordering Facility: [facility] Address: [address] [place] [address] Performed By: #### U A #### [facility] CLIA [id number] [address] [place] [address] [place] Color (U) Yellow Normal Yellow [facility] Comment on above: Order Comment: Speci men Type: URINE SPECIMEN Ordering Facility: [facility] Address: [address] [place] [address] Performed By: #### U A #### [facility] CLIA [id number] [address] [place] [address] [place] Glucose Test strip (U) [Mass/Vol] Negative Normal Negative [facility] Comment on above: Order Comment: Speci men Type: URINE SPECIMEN Ordering Facility: [facility] Address: [address] [place] [address] Performed By: #### U A #### [facility] CLIA [id number] [address] [place] [address] [place] Hemoglobin Ql (U) Negative Normal Negative [facility] Comment on above: Order Comment: Speci men Type: URINE SPECIMEN Ordering Facility: [facility] Address: [address] [place] [address] Performed By: #### U A #### [facility] CLIA [id number] [address] [place] [address] [place] Ketones Ql (U) Negative Normal Negative [facility] Comment on above: Order Comment: Speci men Type: URINE SPECIMEN Ordering Facility: [facility] Address: [address] [place] [address] Performed By: #### U A #### [facility] CLIA [id number] [address] [place] [address] [place] Leukocyte esterase Test strip Ql (U) Negative Normal Negative [facility] Comment on above: Order Comment: Speci men Type: URINE SPECIMEN Ordering Facility: [facility] Address: [address] [place] [address] Performed By: #### U A #### [facility] CLIA [id number] [address] [place] [address] [place] Nitrite Ql (U) Negative Normal Negative [facility] Comment on above: Order Comment: Speci men Type: URINE SPECIMEN Ordering Facility: [facility] Address: [address] [place] [address] Performed By: #### U A #### [facility] CLIA [id number] [address] [place] [address] [place] pH (U) 7.0 [pH] Normal <8.5 [facility] Comment on above: Order Comment: Speci men Type: URINE SPECIMEN Ordering Facility: [facility] Address: [address] [place] [address] Performed By: #### U A #### [facility] CLIA [id number] [address] [place] [address] [place] Protein (U) [Mass/Vol] Negative Normal Negative [facility] Comment on above: Order Comment: Speci men Type: URINE SPECIMEN Ordering Facility: [facility] Address: [address] [place] [address] Performed By: #### U A #### [facility] CLIA [id number] [address] [place] [address] [place] Specific gravity (U) [Rel density] 1.014 Normal 1.005-1.030 [facility] Comment on above: Order Comment: Speci men Type: URINE SPECIMEN Ordering Facility: [facility] Address: [address] [place] [address] Performed By: #### U A #### [facility] CLIA [id number] [address] [place] [address] [place] Urobilinogen Ql (U) 0.2 EU/dL Normal 0.2-1.0 EU/dL [facility] Comment on above: Order Comment: Speci men Type: URINE SPECIMEN Ordering Facility: [facility] Address: [address] [place] [address] Performed By: #### U A #### [facility] CLIA [id number] [address] [place] [address] [place] XR CHEST 2V [...] tissues: Unremarkable. IMPRESSION: No acute radiographic abnormality. Contract Attorney: JAIME Transcribe Date/Time: Sep 12 2023 1:55P Dictated by : JOSEE COLLINS MD This examination was interpreted and the report reviewed and electronically signed by: JOSEE COLLINS MD on Sep 12 2023 1:55PM EST [id number] Normal [facility] XR Chest PA and Lateralon [facility] aPTT PPPon 09-12-2023 aPTT Coag (PPP) [Time] 27.3 s Normal 23.0-32.4 [facility] Comment on above: Order Comment: Speci men Type: BLOOD SPECIMEN Ordering Facility: [facility] Address: [address] [place] [address] Performed By: #### 5 8410-2 #### [facility] CLIA [id number] [address] [place] [address] [place] CNPNon 08-31-2023 CNPN Telephone (THORMN) ----- MARNIE ARANA ([id number]) 1970 F Date Time Provider Department 08/31/23 JASIEL TURNER During your visit today, we recorded the following information about you: Morenita Abebe 08/31/2023 12:14 PM Signed Received [facility] paperwork for patient. Paperwork given to Thoracic NPM for completion. After completion, paperwork is to be faxed to Attn: HR Kyle Martinez. Signed PHI release attached Unknown Dates: 08/06/23 Consult - Referring provider: Ana María Mckeon MD Diagnosis: Myasthenia gravis 3-6-24 Pre-Op 09-13-23 Surgery: ICD-10: G70.00 CPT: 72740 Morenita Still Adm Kandi Price RN 09/21/2023 1:34 PM Signed [facility] paperwork completed and returned to executive administrative assistant for disbursement Off duty 09/12/2023 RTW 10/16/2023 Kandi Price RN, BSN, [facility] Thoracic Nurse Practice Mgr Allergies As of Date: 08/31/2023 (No Known Allergies) Date Reviewed: 08/18/2023 Reviewed by: Roc Marrero MD - Fully Assessed Reason for Visit: [facility] Paperwork [[id number]] Prescriptions as of 09/21/2023 [...] Status:Closed by KANDI PRICE on 09/21/23 Normal [facility] 08-28-2023 [facility] HNO ID: [id number] Author: SHOBHA HUNTLEY RT(R) Service: Radiology Author [...] PATIENT PRESENTS WITH AN IMPLANTABLE OR ATTACHED GARAGE DOOR SERVICE TECHNICIAN: No ALLERGIES: Reviewed and unchanged CONTRAST ALLERGY: NO. EXAM: MRI - CONTRAST TYPE: GROUP II PERIPHERAL IV DATA: Ambulatory: A peripheral IV was started in the Right with a Angio cath: 24 gauge. RADIOLOGY DEPARTMENT: MR; Exam(s) Completed: Body: Liver (routine) SIGNATURE: Roxanne Grigsby, RT(R), Shobha Huntley, RT(R) PATIENT NAME: Marnie Arana DATE: August 28, 2023 TIME: 10:29 AM [facility] MR Liver WO and W contrast I Von 08-28-2023 [facility] MRI LIVER WO/W IVCONon 08-28 MRI LIVER WO/W IVCON * * *Final Report* * * DATE OF EXAM: Aug 28 2023 10:52AM [facility] 0727 - MRI LIVER WO/W IVCON / [...] Four cavernous hepatic hemangiomas. No hepatic metastasis. Contract Attorney: JAIME Transcribe Date/Time: Aug 28 2023 10:59A Dictated by : KUSUM DICK MD This examination was interpreted and the report reviewed and electronically signed by: KUSUM DICK MD on Aug 28 2023 11:22AM EST [id number] [facility] CNOVon 08-06-2023 OV Office Visit (JOSEMN ) ----- MARNIE ARANA ([id number]) 1970 F Date Time Provider Department 08/06/23 8:00 AM JASIEL TURNER During your visit today, we recorded the following information about you: Jasiel Turner MD 08/06/2023 2:05 PM Signed [facility] THORACIC SURGERY OUTPATIENT CONSULT NOTE Marnie Arana [id number] Requesting Provider: Dr. 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 - pyRIDostigmine bromide 30 mg tab Take 1 tablet by mouth four times daily. Problem List As Of Date: 08/06/2023 (None) Encounter Status:Closed by JASIEL TURNER on 08/06/23 [facility] 07-24-2023 ISABELLN Telephone ([facility]) ----- MARNIE ARANA ([id number]) 1970 F Date Time Provider Department 07/24/23 JASIEL TURNER During your visit today, we recorded the following information about you: Kandi Menon 07/24/2023 4:48 PM Signed Confirmed dates and times of apts/ w patient via phone. Sent via [employer] - [phone]. Patient has access to [employer]. PF 08/06/2023 at [facility] PFTs at: 7am/7:15am Consult w/ Dr. Turner at at 8am (per [facility] Kandi Strickland) 08/17/2023 at [facility] Consult Video TO ENDOCRINE SURGERY w/ Dr. Roc Marrero at 8am Per Rep Kannan Farris: Patient will have to have consult with ENDO MED provider before seeing ENDO SURG. Doctor (Dr. Qi Mann was initially requested by [facility] Kandi Strickland). Ji, 08/28/2023 at [facility] at 10:20am Allergies As of Date: 07/24/2023 (No Known Allergies) Date Reviewed: 07/16/2023 Reviewed by: Peggy Larry OCCA - Fully Assessed Reason for Visit: Appointment Confirmation [[id number]] Prescriptions as of 07/24/2023 - predniSONE (DELTASONE) 10 mg tablet Take 2 tablets by mouth once daily. - pyRIDostigmine bromide 30 mg tab Take 1 tablet by mouth three times a day. Problem List As Of Date: 07/24/2023 (None) Encounter Status:Closed by KANDI MENON on 07/24/23 [facility] [place] 07-23-2023 ISABELLN Telephone (NENMMN) ----- MARNIE ARANA ([id number]) 1970 F Date Time Provider Department 07/23/23 DAVID DSOUZA NENMMN During your visit today, we recorded the following information about you: Quinten Chery 07/23/2023 2:43 PM Signed Patient's collection advisor Dr. Robin Bustos called to report increased [...] Status:Closed by DEVAUGHN SNEED on 07/23/23 Normal [facility] CNPN Telephone (EMGMN) ----- MARNIE ARANA ([id number]) 1970 F Date Time Provider Department 07/23/23 DAVID DOSUZA EMGMN During your visit today, we recorded the following information about you: David Dsouza MD 07/23/2023 5:52 PM [facility] Phone Call On Sunday, she started noticing worsening vision changes. When looking straight forward, images seemed off. Did not develop any chewing, swallowing or breathing difficulties. 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 The patient's felt that the ptosis was very subtle and they did not notice it until her collection advisor examined her eyes. She has been taking [...] keep me [facility] Dr. Ruiz. David Dsouza MD [...] Encounter Status:Closed by DAVID DSOUZA on 07/23/23 [facility] CNOVon 07-16-2023 CNOV Office Visit (NENMMN ) ----- MARNIE ARANA ([id number]) 1970 F Date Time Provider Department 07/16/23 1:00 PM DAVID DSOUZA NENMMN During your visit today, we recorded the following information about you: Pulse Blood pressure Weight Height 77/minute 134/76 92.1 kg 1.6 m David Dsouza MD 07/17/2023 6:45 AM Addendum [facility] New Patient Visit Note Consultation [...] to lose weight intentionally. She saw her relay repairer in a few days after the onset [...] by Dr. Claire De Los Santos at [facility] and was diagnosed with myasthenia gravis. Was started on pyridostigmine 30mg TID and prednisone 10mg daily in June 2023. She had a CT scan of her chest completed that showed the presence of a possible thymomatous mass and she was then referred to [facility] for further evaluation. She has tolerated both [...] reported prol (more content not included)... Normal [facility] CNPLinda 07-11-2023 CNPN Telephone ([place]) ----- MARNIE ARANA ([id number]) 1970 F Date Time Provider Department 07/11/23 [facility] THORACIC SURG CONSULT THORMN During your visit today, we recorded the following information about you: Morenita Abebe 07/11/2023 2:50 PM Signed LOCAL PATIENT Received [employer] Staff Message from external referring pool Marnie [...] office for scheduling. Please call pt at [phone]. Patient was informed consultation could be at [facility] or [facility]: No Patient Registration: Registration complete/updated: yes Insurance card(s) scanned in [employer] with in the past year: Yes: Date: Pt's Optimitive is active. Ok to communicate to pt via Optimitive not asked Medical Records: Records in [facility] (internal CC records): No Imaging in [facility] (internal CC records): No Care Everywhere - queried yes, downloaded Yes Linked Outside Organizations (list): [employer] OS Records Requested: no Date: N/A Outside Hospital(s) requested records from: [facility] () Received: n/a Uploaded: N/A. Waiting on additional records: No. Missing (list): N/A OSH Pathology Slides Requested: no Date: N/A Outside Hospital(s) slides requested from: no OS Radiology Imaging Requested: yes Date: 07-11-2023 Outside Hospital(s) requested imaging from: [employer]. Imaging will be received via Electronic Transfer Received: no Imaging uploaded: No Waiting on additional: No. Missing (list): CT Additional providers added to Care Teams: Yes Additional Notes/Comments: request faxed to [facility] file room at [phone] Enct routed to: Yes, Thoracic NPM for triage Morenita Still Adm Kandi Price, RN 07/13/2023 2:56 PM Addendum Thoracic Surgery Consultation - review of records for appointment scheduling Received medical records from the office of SELF Phone: N/A Fax: Patient is being referred to Unspecified/First Available( reviewed with Jasiel Turner MD) by Self for Mediastinal mass /Thymoma Outside hospital records scanned / in [facility] / Care Everywhere Pathology: Procedures: Imaging . [...] evaluation is currently recommen CT brain 06/04/2023 [facility] No acute intracranial findings. CT orbits: [facility] Left optic nerve is larger and more [...] surgery with Dr. Yue Price RN, BSN, [facility] Thoracic Nurse Kandi Rodney, RN 07/13/2023 5:02 PM Signed PT referred outside neurology Dr. De Los Santos [facility] [place] Care Teams updated She is scheduled with Dr. 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 Normal [facility] CNPNon 07-04-2023 CNPN Telephone (PODCCP) ----- MARNIE ARANA ([id number]) 1970 F Date Time Provider Department 07/04/23 NO PCP PODCCP During your visit today, we recorded the following information about you: Marielena Shaw 07/04/2023 10:18 AM Signed Reason for call: pt called and she would like to schedule an appt to co-ordinate with her neurology appt on Jul.She would like the thoracic appt to be in the morning Home and cell number:[phone] Diagnosis:myasthenia gravis. Marielena Ash Allergies As of Date: 07/04/2023 (Not on File) Date Reviewed: Never Reviewed Reason for Visit: Appointment [186] Problem List As Of Date: 07/04/2023 (None) Encounter Status:Closed by MARIELENA SHAW on 07/04/23 Normal [facility] Outside Colonoscopyon 2020 Outside Colonoscopy [id number]:[address] [facility] Consent for Procedure/Surger yon 01-14-2021 Consent for Procedure/Surgery [id number]:[address] [facility] Provider [facility] [facility] January 14, 2021 Obdulio Monae DO [address] [place] [address] Re: MARNIE ARANA Date of : 1970 Thank you for your referral of Marnie Arana who was seen on consultation for screening colonoscopy. I have enclosed my consultation note for your review. I will be happy to follow Marnie. Sincerely, Odell Johnson MD General Surgery [facility] Ambulatory Clinical Summaryo n 01-13-2021 Ambulatory Clinical Summary {[id number] [facility] Immunization Recordson 01-13 Immunization Records [id number]:[address] [facility] Patient Educationon 01-14-20 Patient Education Colonoscopy A [...] ? Medicines taken, including vitamins, herbs, eyedrops, isyl-dsu-qzhuorc medicines, and creams. ? Use of steroids [...] medicines have worn off. ? Only take gotn-nqt-kaqdexm or prescription medicines for pain, discomfort, or [...] 09/16/2012 Document Reviewed: 02/04/2009 ExitCare? Patient Information ?2014 Diagonal View. Normal [facility] MG MAMM SCREEN 3D GLORIA CADon 01-06-2021 MG MAMM SCREEN 3D GLORIA CAD Patient: MARNIE ARANA Exam Date: 01/06/2021 : 1970 Gender:F Ordering : DR BHAVNA GOMEZ . Admission #: [id number] Family : Order #: [id number] CLICK HERE TO VIEW EXAM RADIOLOGY REPORT [...] meningioma cancer at age 58. LOCATION: [facility] BREAST COMPOSITION: Scattered areas fibroglandular density. FINDINGS: [...] Crane M.D. on 01/06/2021 at 15:04 Normal [facility] XR DEXA BONE DENSITYon 01-06 XR DEXA [...] by: AMARI CRANE Date: 2021-01-06 11:04 Normal [facility] Physician Referralon 021 Physician Referral [id number]:12 7 Normal [facility] PAP ACOG PANEL 2: 30 to 65on 12-10-2020 . . Normal [facility] Comment on above: Result Comment: Perf ormed at: WB Performed By: #### [id number] #### [facility] [address] [place] [address] Andrew Lemons Age Gdln ACOG Testing 30-65 Normal [facility] Comment on above: Performed By: #### [id number] #### [facility] [address] [place] [address] Andrew Lemons DIAGNOSIS: Comment Normal [facility] Comment on above: Result Comment: NEGA TIVE FOR INTRAEPITHELIAL LESION OR MALIGNANCY. CELLULAR CHANGES ASSOCIATED WITH ATROPHY ARE PRESENT. Performed at: WB Performed By: #### [id number] #### [facility] [address] [address] Andrew Lemons HPV Aptima Negative Normal Negative [facility] Comment on above: Result Comment: This nucleic acid amplification test detects fourteen high-risk HPV types (16,18,31,33,35,39,45,51,52,56,58,59,66,68) without differentiation. Performed at: =G Performed By: #### 4 [id number] #### [facility] [address] [address] Andrew Lemons Methodology: Comment Normal [facility] Comment on above: Result Comment: This liquid based ThinPrep(R) pap test was screened with the use of an image guided system. Performed at: WB Performed By: #### [id number] #### [facility] [address] [place] [address] Andrew Lemons Note: Comment Normal [facility] Comment on above: Result Comment: The Pap smear is a screening test designed to aid in the detection of premalignant and malignant conditions of the uterine cervix. It is not a diagnostic procedure and should not be used as the sole means of detecting cervical cancer. Both false-positive and false-negative reports do occur. . Performed at: WB Performed By: #### [id number] #### [facility] [address], [place] [address] Andrew Lemons Performed by: Comment Normal [facility] Comment on above: Result Comment: Namita Newby, Cadd Manager (ASCP) Performed at: WB Performed By: #### [id number] #### [facility] [address], [place] [address] Andrew Lemons Specimen adequacy: Comment Normal [facility] Comment on above: Result Comment: Sati sfactory for evaluation. Performed at: WB Performed By: #### 4 [id number] #### [facility] [address], [place] [address] Andrew Lemons Vital Signs Date Time Vital Sign Value Performing Clinician Facility 05-20-2024 08:18-0500 Body mass index (BMI) [Ratio] 38.77 kg/m2 Cristian Teixeira APRN-MOVEMENT ASSEMBLER Work Phone: [facility] 05-20-2024 08:18-0500 Body weight 105.69 kg Cristian Teixeira PROJECT ADMINISTRATOR-MOVEMENT ASSEMBLER Work Phone: [facility] 05-20-2024 08:18-0500 Diastolic blood pressure 76 mm[Hg] Cristian Teixeira PROJECT ADMINISTRATOR-MOVEMENT ASSEMBLER Work Phone: [facility] 05-20-2024 08:18-0500 Heart rate 81 /min Cristian Teixeira PROJECT ADMINISTRATOR-MOVEMENT ASSEMBLER Work Phone: [facility] 05-20-2024 08:18-0500 Respiratory rate 16 /min Cristian Teixeira PROJECT ADMINISTRATOR-MOVEMENT ASSEMBLER Work Phone: [facility] 05-20-2024 08:18-0500 SaO2% (BldA) [Mass fraction] 98 % Cristian Teixeira APRN-MOVEMENT ASSEMBLER Work Phone: [facility] 05-20-2024 08:18-0500 Systolic blood pressure 126 mm[Hg] Cristianra Crespodestiney PROJECT ADMINISTRATOR-MOVEMENT ASSEMBLER Work Phone: [facility] 04-29-2024 12:45-0400 Body height 160 cm Quinten Ruiz MD Work Phone: [facility] 04-29-2024 12:45-0400 Body mass index (BMI) [Ratio] 40.46 kg/m2 Quinten Ruiz MD Work Phone: [facility] 04-29-2024 12:45-0400 Body weight 103.6 kg Quinten Ruiz MD Work Phone: [facility] 04-29-2024 12:45-0400 Diastolic blood pressure 79 mm[Hg] Quinten Ruiz MD Work Phone: [facility] 04-29-2024 12:45-0400 Heart rate 86 /min Quinten Ruiz MD Work Phone: [facility] 04-29-2024 12:45-0400 SaO2% (BldA) [Mass fraction] 97 % Quinten Ruiz MD Work Phone: [facility] 04-29-2024 12:45-0400 Systolic blood pressure 122 mm[Hg] Quinten Ruiz MD Work Phone: [facility] 04-29-2024 10:57-0400 Body height 160 cm Kandy Vallecillo APRN.MOVEMENT ASSEMBLER Work Phone: [facility] 04-29-2024 10:57-0400 Body mass index (BMI) [Ratio] 40.46 kg/m2 Kandy Vallecillo PROJECT ADMINISTRATOR.MOVEMENT ASSEMBLER Work Phone: [facility] 04-29-2024 10:57-0400 Body temperature 97.59 [degF] Kandy Vallecillo PROJECT ADMINISTRATOR.MOVEMENT ASSEMBLER Work Phone: [facility] 04-29-2024 10:57-0400 Body weight 103.6 kg Kandy Vallecillo PROJECT ADMINISTRATOR.MOVEMENT ASSEMBLER Work Phone: [facility] 04-29-2024 10:57-0400 Diastolic blood pressure 78 mm[Hg] Kandy Vallecillo PROJECT ADMINISTRATOR.MOVEMENT ASSEMBLER Work Phone: [facility] 04-29-2024 10:57-0400 Heart rate 80 /min Kandy Vallecillo PROJECT ADMINISTRATOR.MOVEMENT ASSEMBLER Work Phone: [facility] 04-29-2024 10:57-0400 Respiratory rate 14 /min Kandy Barths PROJECT ADMINISTRATOR.MOVEMENT ASSEMBLER Work Phone: [facility] 04-29-2024 10:57-0400 SaO2% (BldA) [Mass fraction] 98 % Kandy Vallecillo PROJECT ADMINISTRATOR.MOVEMENT ASSEMBLER Work Phone: [facility] 04-29-2024 10:57-0400 Systolic blood pressure 162 mm[Hg] Kandy Barths PROJECT ADMINISTRATOR.MOVEMENT ASSEMBLER Work Phone: [facility] 04-14-2024 09:32-0400 Body height 162.6 cm Tiffanie Moreno PA Work Phone: [facility] 04-14-2024 09:32-0400 Body mass index (BMI) [Ratio] 39.48 kg/m2 Tiffanie Tiffanie PA Work Phone: [facility] 04-14-2024 09:32-0400 Body weight 104.33 kg Tiffanie Tiffanie PA Work Phone: [facility] 04-14-2024 09:32-0400 Diastolic blood pressure 86 mm[Hg] Tiffanie Tiffanie PA Work Phone: [facility] 04-14-2024 09:32-0400 Systolic blood pressure 138 mm[Hg] Tiffanie Tiffanie PA Work Phone: [facility] 02-06-2024 11:25-0400 Body height 160 cm Quinten Ruiz MD Work Phone: [facility] 02-06-2024 11:25-0400 Body mass index (BMI) [Ratio] 39.64 kg/m2 Quinten Ruiz MD Work Phone: [facility] 02-06-2024 11:25-0400 Body weight 101.52 kg Quinten Ruiz MD Work Phone: [facility] 02-06-2024 11:25-0400 Diastolic blood pressure 76 mm[Hg] Quinten Ruiz MD Work Phone: [facility] 02-06-2024 11:25-0400 Heart rate 63 /min Quinten Ruiz MD Work Phone: [facility] 02-06-2024 11:25-0400 SaO2% (BldA) [Mass fraction] 96 % Quinten Ruiz MD Work Phone: [facility] 02-06-2024 11:25-0400 Systolic blood pressure 141 mm[Hg] Quinten Ruiz MD Work Phone: [facility] 01-03-2024 13:41-0400 Body mass index (BMI) [Ratio] 40.89 kg/m2 Zeferino Desouza MD Work Phone: [facility] 01-03-2024 13:41-0400 Body temperature 97.59 [degF] Zeferino Desouza MD Work Phone: [facility] 01-03-2024 13:41-0400 Body weight 104.7 kg Zeferino Desouza MD Work Phone: [facility] 01-03-2024 13:41-0400 Diastolic blood pressure 71 mm[Hg] Zeferino Desouza MD Work Phone: [facility] 01-03-2024 13:41-0400 Heart rate 74 /min Zeferino Desouza MD Work Phone: [facility] 01-03-2024 13:41-0400 Respiratory rate 18 /min Zeferino Desouza MD Work Phone: [facility] 01-03-2024 13:41-0400 SaO2% (BldA) [Mass fraction] 96 % Zeferino Desouza MD Work Phone: [facility] 01-03-2024 13:41-0400 Systolic blood pressure 127 mm[Hg] Zeferino Desouza MD Work Phone: [facility] 05-22-2024 14:44-0400 Body mass index (BMI) [Ratio] 40.77 kg/m2 Zeferino Desouza MD Work Phone: [facility] 11-28-2023 14:44-0400 Body temperature 96.69 [degF] Zeferino Desouza MD Work Phone: [facility] 11-28-2023 14:44-0400 Body weight 104.4 kg Zeferino Desouza MD Work Phone: [facility] 11-28-2023 14:44-0400 Diastolic blood pressure 81 mm[Hg] Zeferino Desouza MD Work Phone: [facility] 11-28-2023 14:44-0400 Heart rate 64 /min Zeferino Desouza MD Work Phone: [facility] 11-28-2023 14:44-0400 Respiratory rate 18 /min Zeferino Desouza MD Work Phone: [facility] 11-28-2023 14:44-0400 SaO2% (BldA) [Mass fraction] 98 % Zeferino Desouza MD Work Phone: [facility] 11-28-2023 14:44-0400 Systolic blood pressure 128 mm[Hg] Zeferino Desouza MD Work Phone: [facility] 11-21-2023 14:51-0400 Body mass index (BMI) [Ratio] 40.42 kg/m2 Zeferino Desouza MD Work Phone: [facility] 11-21-2023 14:51-0400 Body temperature 97.2 [degF] Zeferino Desouza MD Work Phone: [facility] 11-21-2023 14:51-0400 Body weight 103.5 kg Zeferino Desouza MD Work Phone: [facility] 11-21-2023 14:51-0400 Diastolic blood pressure 84 mm[Hg] Zeferino Desouza MD Work Phone: [facility] 11-21-2023 14:51-0400 Heart rate 65 /min Zeferino Desouza MD Work Phone: [facility] 11-21-2023 14:51-0400 Respiratory rate 16 /min Zeferino Desouza MD Work Phone: [facility] 11-21-2023 14:51-0400 SaO2% (BldA) [Mass fraction] 97 % Zeferino Desouza MD Work Phone: [facility] 11-21-2023 14:51-0400 Systolic blood pressure 128 mm[Hg] Zeferino Desouza MD Work Phone: [facility] 11-14-2023 14:31-0400 Body mass index (BMI) [Ratio] 40.07 kg/m2 Zeferino Desouza MD Work Phone: [facility] 11-14-2023 14:31-0400 Body temperature 97 [degF] Zeferino Desouza MD Work Phone: [facility] 11-14-2023 14:31-0400 Body weight 102.6 kg Zeferino Desouza MD Work Phone: [facility] 11-14-2023 14:31-0400 Diastolic blood pressure 64 mm[Hg] Zeferino Desouza MD Work Phone: [facility] 11-14-2023 14:31-0400 Heart rate 69 /min Zeferino Desouza MD Work Phone: [facility] 11-14-2023 14:31-0400 Respiratory rate 16 /min Zeferino Desouza MD Work Phone: [facility] 11-14-2023 14:31-0400 SaO2% (BldA) [Mass fraction] 95 % Zeferino Desouza MD Work Phone: [facility] 11-14-2023 14:31-0400 Systolic blood pressure 134 mm[Hg] Zeferino Desouza MD Work Phone: [facility] 11-07-2023 14:54-0400 Body mass index (BMI) [Ratio] 40.07 kg/m2 Zeferino Desouza MD Work Phone: [facility] 11-07-2023 14:54-0400 Body temperature 97 [degF] Zeferino Desouza MD Work Phone: [facility] 11-07-2023 14:54-0400 Body weight 102.6 kg Zeferino Desouza MD Work Phone: [facility] 11-07-2023 14:54-0400 Diastolic blood pressure 69 mm[Hg] Zeferino Desouza MD Work Phone: [facility] 11-07-2023 14:54-0400 Heart rate 66 /min Zeferino Desouza MD Work Phone: [facility] 11-07-2023 14:54-0400 Respiratory rate 16 /min Zeferino Desouza MD Work Phone: [facility] 11-07-2023 14:54-0400 SaO2% (BldA) [Mass fraction] 98 % Zeferino Desouza MD Work Phone: [facility] 11-07-2023 14:54-0400 Systolic blood pressure 122 mm[Hg] Zeferino Desouza MD Work Phone: [facility] 10-31-2023 14:54-0400 Body mass index (BMI) [Ratio] 39.56 kg/m2 Zeferino Desouza MD Work Phone: [facility] 10-31-2023 14:54-0400 Body temperature 96.91 [degF] Zeferino Desouza MD Work Phone: [facility] 10-31-2023 14:54-0400 Body weight 101.3 kg Zeferino Desouza MD Work Phone: [facility] 10-31-2023 14:54-0400 Diastolic blood pressure 77 mm[Hg] Zeferino Desouza MD Work Phone: [facility] 10-31-2023 14:54-0400 Heart rate 65 /min Zeferino Desouza MD Work Phone: [facility] 10-31-2023 14:54-0400 Respiratory rate 16 /min Zeferino Desouza MD Work Phone: [facility] 10-31-2023 14:54-0400 SaO2% (BldA) [Mass fraction] 97 % Zeferino Desouza MD Work Phone: [facility] 10-31-2023 14:54-0400 Systolic blood pressure 115 mm[Hg] Zeferino Desouza MD Work Phone: [facility] 10-29-2023 16:08-0400 Body height 160 cm David Dsouza MD Work Phone: [facility] 10-29-2023 16:08-0400 Body mass index (BMI) [Ratio] 39.15 kg/m2 David Dsouza MD Work Phone: [facility] 10-29-2023 16:08-0400 Body weight 100.25 kg David Dsouza MD Work Phone: [facility] 10-29-2023 16:08-0400 Diastolic blood pressure 56 mm[Hg] David Dsouza MD Work Phone: [facility] 10-29-2023 16:08-0400 Heart rate 78 /min David Dsouza MD Work Phone: [facility] 10-29-2023 16:08-0400 SaO2% (BldA) [Mass fraction] 94 % David Dsouza MD Work Phone: [facility] 10-29-2023 16:08-0400 Systolic blood pressure 114 mm[Hg] David Dsouza MD Work Phone: [facility] 10-29-2023 13:57-0400 Body mass index (BMI) [Ratio] 38.84 kg/m2 Kandy Vallecillo APRN.MOVEMENT ASSEMBLER Work Phone: [facility] 10-29-2023 13:57-0400 Body temperature 98.01 [degF] Kandy Vallecillo APRN.MOVEMENT ASSEMBLER Work Phone: [facility] 10-29-2023 13:57-0400 Body weight 100.25 kg Kandy Wegas PROJECT ADMINISTRATOR.MOVEMENT ASSEMBLER Work Phone: [facility] 10-29-2023 13:57-0400 Diastolic blood pressure 77 mm[Hg] Kandy Wegas PROJECT ADMINISTRATOR.MOVEMENT ASSEMBLER Work Phone: [facility] 10-29-2023 13:57-0400 Heart rate 93 /min Kandy Candidogas PROJECT ADMINISTRATOR.MOVEMENT ASSEMBLER Work Phone: [facility] 10-29-2023 13:57-0400 Respiratory rate 16 /min Kandy Candidogas PROJECT ADMINISTRATOR.MOVEMENT ASSEMBLER Work Phone: [facility] 10-29-2023 13:57-0400 SaO2% (BldA) [Mass fraction] 95 % Kandy Candidogas PROJECT ADMINISTRATOR.MOVEMENT ASSEMBLER Work Phone: [facility] 10-29-2023 13:57-0400 Systolic blood pressure 127 mm[Hg] Kandy Candidogas PROJECT ADMINISTRATOR.MOVEMENT ASSEMBLER Work Phone: [facility] 10-11-2023 12:57-0400 Body height 160.7 cm Zeferino Desouza MD Work Phone: [facility] 10-11-2023 12:57-0400 Body temperature 97.81 [degF] Zeferino Desouza MD Work Phone: [facility] 10-11-2023 12:57-0400 Body weight 97.6 kg Zeferino Desouza MD Work Phone: [facility] 10-11-2023 12:57-0400 Diastolic blood pressure 80 mm[Hg] Zeferino Desouza MD Work Phone: [facility] 10-11-2023 12:57-0400 Heart rate 87 /min Zeferino Desouza MD Work Phone: [facility] 10-11-2023 12:57-0400 Respiratory rate 18 /min Zeferino Desouza MD Work Phone: [facility] 10-11-2023 12:57-0400 SaO2% (BldA) [Mass fraction] 99 % Zeferino Desouza MD Work Phone: [facility] 10-11-2023 12:57-0400 Systolic blood pressure 141 mm[Hg] Zeferino Desouza MD Work Phone: [facility] 09-21-2023 14:51-0400 Body height 160 cm Kandy Ruth Ann PROJECT ADMINISTRATOR.MOVEMENT ASSEMBLER Work Phone: [facility] 09-21-2023 14:51-0400 Body temperature 98.01 [degF] Kandy Wegas PROJECT ADMINISTRATOR.MOVEMENT ASSEMBLER Work Phone: [facility] 09-21-2023 14:51-0400 Body weight 95.94 kg Kandy Wegas PROJECT ADMINISTRATOR.MOVEMENT ASSEMBLER Work Phone: [facility] 09-21-2023 14:51-0400 Diastolic blood pressure 83 mm[Hg] Kandy Reygas PROJECT ADMINISTRATOR.MOVEMENT ASSEMBLER Work Phone: [facility] 09-21-2023 14:51-0400 Heart rate 67 /min Kandy Vallecillo PROJECT ADMINISTRATOR.MOVEMENT ASSEMBLER Work Phone: [facility] 09-21-2023 14:51-0400 SaO2% (BldA) [Mass fraction] 97 % Kandy Barths PROJECT ADMINISTRATOR.MOVEMENT ASSEMBLER Work Phone: [facility] 09-21-2023 14:51-0400 Systolic blood pressure 152 mm[Hg] Kandy Barths PROJECT ADMINISTRATOR.MOVEMENT ASSEMBLER Work Phone: [facility] 09-12-2023 13:43-0500 Body height 160 cm Jasiel Turner MD Work Phone: [facility] 09-12-2023 13:43-0500 Body temperature 98.49 [degF] Jasiel Turner MD Work Phone: [facility] 09-12-2023 13:43-0500 Body weight 95.71 kg Jasiel Turner MD Work Phone: [facility] 09-12-2023 13:43-0500 Diastolic blood pressure 69 mm[Hg] Jasiel Turner MD Work Phone: [facility] 09-12-2023 13:43-0500 Heart rate 77 /min Jasiel Turner MD Work Phone: [facility] 09-12-2023 13:43-0500 Respiratory rate 14 /min Jasiel Turner MD Work Phone: [facility] 09-12-2023 13:43-0500 SaO2% (BldA) [Mass fraction] 96 % Jasiel Turner MD Work Phone: [facility] 09-12-2023 13:43-0500 Systolic blood pressure 142 mm[Hg] Jasiel Turner MD Work Phone: [facility] 09-05-2023 14:54-0500 Body height 165.1 cm Cristian Schericachter PROJECT ADMINISTRATOR-MOVEMENT ASSEMBLER Work Phone: [facility] 09-05-2023 14:54-0500 Body mass index (BMI) [Ratio] 35.78 kg/m2 Cristian Schericachter PROJECT ADMINISTRATOR-MOVEMENT ASSEMBLER Work Phone: [facility] 09-05-2023 14:54-0500 Body weight 97.52 kg Cristian Schlachter PROJECT ADMINISTRATOR-MOVEMENT ASSEMBLER Work Phone: [facility] 09-05-2023 14:54-0500 Diastolic blood pressure 70 mm[Hg] Cristian Schlachter PROJECT ADMINISTRATOR-MOVEMENT ASSEMBLER Work Phone: [facility] 09-05-2023 14:54-0500 Heart rate 64 /min Cristian Schlachter PROJECT ADMINISTRATOR-MOVEMENT ASSEMBLER Work Phone: [facility] 09-05-2023 14:54-0500 Respiratory rate 18 /min Cristian Schlachter PROJECT ADMINISTRATOR-MOVEMENT ASSEMBLER Work Phone: [facility] 09-05-2023 14:54-0500 SaO2% (BldA) [Mass fraction] 97 % Cristian Schericachter PROJECT ADMINISTRATOR-MOVEMENT ASSEMBLER Work Phone: [facility] 09-05-2023 14:54-0500 Systolic blood pressure 124 mm[Hg] Cristian Schlachter PROJECT ADMINISTRATOR-MOVEMENT ASSEMBLER [facility] En[facility] Encounter Date Encounter Type Care Provider Facility Start: 05-20-2024 End: 05-20-2024 Office outpatient visit 15 minutes Cristian Lluvia PROJECT ADMINISTRATOR-MOVEMENT ASSEMBLER [facility] Comment on above: Myasthenia gravis (C MS-HCC) (Primary Dx); Thymoma; Acute non-recurrent maxillary sinusitis Start: 05-20-2024 End: 05-20-2024 ambulatory Quinten Ruiz MD Work Phone: Neurology Comment on above: Medications Start: 05-16-2024 End: 05-16-2024 ambulatory ZEFERINO DESOUZA Facility:[facility] Start: 04-29-2024 End: 04-29-2024 Patient encounter procedure Kandy Vallecillo PROJECT ADMINISTRATOR.MOVEMENT ASSEMBLER Work Phone: [facility] Comment on above: Malignant neoplasm o f thymus (HCC) (Primary Dx); Thymoma Myasthenia gravis (H CC) (Primary Dx) Start: 04-29-2024 End: 04-29-2024 ambulatory KANDY VALLECILLO Facility:[facility] Start: 04-29-2024 End: 04-29-2024 Subsequent hospital visit by physician Ct 2 Main Qb (I-Stat) Radiology Comment on above: Malignant neoplasm o f thymus (HCC) [C37] Start: 04-14-2024 End: 04-14-2024 Bamboo flowsheet Tiffanie HANNA Work Phone: [facility] Start: 04-14-2024 End: 04-21-2024 Bamboo flowsheet Tiffanie HANNA Work Phone: [facility] Start: 04-14-2024 End: 04-21-2024 Clinisync Result Encounter Tiffanie HANNA Work Phone: [facility] Unsolicited Start: 04-14-2024 End: 04-14-2024 Patient encounter procedure Tiffanie HANNA Work Phone: [facility] Work Phone: Start: 04-14-2024 End: 04-14-2024 Periodic preventive med est patient 40-64yrs Tiffanie HANNA Work Phone: [facility] Comment on above: Well woman exam with routine gynecological exam; Breast cancer screening by mammogram; Postmenopausal state Start: 04-14-2024 End: 04-14-2024 ambulatory TIFFANIE MORENO Not Available Start: 03-03-2024 End: 03-03-2024 ambulatory [facility] Start: 02-06-2024 End: 02-06-2024 ambulatory QUINTEN RUIZ Facility:[facility] Start: 02-06-2024 End: 02-06-2024 Patient encounter procedure Quinten Ruiz MD Work Phone: Neurology Comment on above: Myasthenia gravis (H CC) (Primary Dx) Start: 01-22-2024 End: 01-22-2024 ambulatory CLAIRE DE LOS SANTOS Not Available Start: 01-03-2024 End: 01-03-2024 ambulatory ZEFERINO DESOUZA Facility:[facility] Start: 01-03-2024 End: 01-03-2024 Patient encounter procedure Zeferino Desouza MD Work Phone: Radiation Oncology Comment on above: Thymoma (Primary Dx) Start: 12-18-2023 Telephone encounter Dilcia Price RN Radiation Oncology Comment on above: Patient Update (Post Radiation Nurse Call ) Start: 11-30-2023 End: 11-30-2023 ambulatory ZEFERINO DESOUZA Facility:[facility] Start: 11-30-2023 Patient encounter procedure Zeferino Desouza MD Work Phone: Radiation Oncology Start: 11-30-2023 Radiation Oncology Note Zeferino guzman MD Work Phone: Radiation Oncology Comment on above: Completion Note Start: 11-29-2023 End: 11-29-2023 Refill Kandy Vallecillo APRN.CNP Work Phone: [facility] Start: 11-28-2023 End: 11-28-2023 Patient encounter procedure Zeferino Desouza MD Work Phone: Radiation Oncology Comment on above: Thymoma (Primary Dx) Start: 11-28-2023 End: 11-28-2023 ambulatory ZEFERINO LYLY Facility:[facility] Start: 11-27-2023 End: 11-27-2023 ambulatory ANA MARÍA MCKEON Facility:[facility] Start: 11-26-2023 End: 11-26-2023 ambulatory ANA MARÍA MCKEON Facility:[facility] Start: 11-23-2023 End: 11-23-2023 ambulatory ANA MARÍA MCKEON Facility:[facility] Start: 11-22-2023 End: 11-22-2023 ambulatory ANA MARÍA MCKEON Facility:[facility] Start: 11-21-2023 End: 11-21-2023 Patient encounter procedure Zeferino Desouza MD Work Phone: Radiation Oncology Comment on above: Thymoma (Primary Dx) Start: 11-21-2023 End: 11-21-2023 ambulatory ZEFERINO LYLY Facility:[facility] Start: 11-20-2023 End: 11-20-2023 ambulatory ANA MARÍA MCKEON Facility:[facility] Start: 11-19-2023 End: 11-19-2023 ambulatory ANA MARÍA MCKEON Facility:[facility] Start: 11-16-2023 End: 11-16-2023 ambulatory ZEFERINO LYLY Facility:[facility] Start: 11-15-2023 End: 11-15-2023 ambulatory ZEFERINO LYLY Facility:[facility] Start: 11-14-2023 End: 11-14-2023 Patient encounter procedure Zeferino Desouza MD Work Phone: Radiation Oncology Comment on above: Thymoma (Primary Dx) Start: 11-14-2023 End: 11-14-2023 ambulatory ZFEERINO LYLY Facility:[facility] Start: 11-13-2023 End: 11-13-2023 ambulatory ZEFERINO LYLY Facility:[facility] Start: 11-12-2023 End: 11-12-2023 ambulatory ZEFERINO LYLY Facility:[facility] Start: 11-09-2023 End: 11-09-2023 ambulatory ZEFERINO LYLY Facility:[facility] Start: 11-08-2023 End: 11-08-2023 ambulatory ZEFERINO LYLY Facility:[facility] Start: 11-07-2023 End: 11-07-2023 Patient encounter procedure Zeferino Desouza MD Work Phone: Radiation Oncology Comment on above: Thymoma (Primary Dx) Start: 11-07-2023 End: 11-07-2023 ambulatory ZEFERINO LYLY Facility:[facility] Start: 11-06-2023 End: 11-06-2023 ambulatory [facility] Facility:[facility] Start: 11-05-2023 End: 11-05-2023 ambulatory [facility] Facility:[facility] Start: 11-02-2023 End: 11-02-2023 ambulatory [facility] Facility:[facility] Start: 11-01-2023 End: 11-01-2023 ambulatory [facility] Facility:[facility] Start: 10-31-2023 End: 10-31-2023 Patient encounter procedure Zeferino Desouza MD Work Phone: Radiation Oncology Comment on above: Thymoma (Primary Dx) Start: 10-31-2023 End: 10-31-2023 ambulatory ZEFERINO LYLY Facility:[facility] Start: 10-30-2023 End: 10-30-2023 ambulatory ANA MARÍA MCKEON Facility:[facility] Start: 10-29-2023 End: 10-29-2023 Patient encounter procedure Kandy Vallecillo APRN.CNP Work Phone: [facility]acic [facility] Comment on above: Malignant neoplasm o f thymus (HCC) (Primary Dx); Myasthenia gravis (HCC) Myasthenia gravis (H CC) (Primary Dx) Start: 10-29-2023 End: 10-29-2023 Subsequent hospital visit by physician Xr Chest Main J1 Work Phone: Radiology Comment on above: Myasthenia gravis (H CC) [G70.00] Start: 10-29-2023 End: 10-29-2023 ambulatory [facility] Facility:[facility] Start: 10-26-2023 End: 10-26-2023 ambulatory ANA MARÍA EVGENY MCKEON Facility:[facility] Start: 10-25-2023 End: 10-25-2023 [facility] Start: 10-17-2023 Patient encounter procedure [facility] Provider [facility] Start: 10-16-2023 End: 10-16-2023 ambulatory ZEFERINO DESOUZA Facility:[facility] Start: 10-16-2023 End: 10-16-2023 Subsequent hospital visit by physician Arrival Time Radiology Work Phone: Radiology Pet CT Comment on above: Malignant neoplasm o f thymus (HCC) [C37] Start: 10-12-2023 End: 10-15-2023 ambulatory ZEFERINO DESOUZA Facility:[facility] Start: 10-12-2023 End: 10-12-2023 Subsequent hospital visit by physician Zeferino Desouza MD Work Phone: Radiology [facility] Start: 10-12-2023 End: 10-15-2023 Patient encounter procedure Zeferino Desouza MD Work Phone: [facility] Comment on above: Thymoma (Primary Dx) Start: [...] End: 09-27-2023 Subsequent hospital visit by physician [facility] Rad[facility] Comment on above: Multiple thyroid nod ules [E04.2] Start: 09-27-2023 End: 09-27-2023 ambulatory ANA MARÍA MCKEON Facility:[facility] Start: 09-27-2023 Encounter for other preprocedural examination CLAIRE DE LOS SANTOS [facility] Start: 09-27-2023 Encounter for preprocedural laboratory examination CLAIRE DE LOS SANTOS [facility] Start: 09-26-2023 Telephone encounter Jasiel Turner MD Work Phone: Thoracic Clinic Comment on above: Return To Work Lette r Start: 09-21-2023 End: 09-21-2023 Patient encounter procedure Kandy Vallecillo PROJECT ADMINISTRATOR.MOVEMENT ASSEMBLER Work Phone: Thoracic Clinic Comment on above: Myasthenia gravis (H CC) (Primary Dx); Thymoma Start: 09-21-2023 End: 09-21-2023 ambulatory ANA MARÍA MCKEON Facility:[facility] Start: 09-21-2023 End: 09-21-2023 Subsequent hospital visit [...] all clear/) Transition Of Care Start: 09-13-2023 End: 09-15-2023 Evaluation and management of inpatient CLAIRE Jenny SANTAMARIANAVNEET Facility:[facility] Start: 09-12-2023 End: 09-12-2023 Admission to same day surgery center Anesthesia Clearance Work Phone: [facility] Work Phone: Start: 09-12-2023 End: 09-12-[address] [facility] Facility:[facility] Start: 09-12-2023 End: 09-12-2023 Patient encounter procedure Anesthesia Clearance Work Phone: Cardiothoracic Comment on above: Encounter for preope rative anesthesiology assessment for thoracic surgery (Primary Dx) Myasthenia gravis (H CC) (Primary Dx); Benign neoplasm of thymus Start: 09-12-2023 End: 09-12-2023 Patient encounter status Xr J1 Work Phone: [facility] Start: 09-12-2023 End: 09-12-2023 Subsequent hospital visit by physician Xr Chest Main J1 Work Phone: Radiology Comment on above: Myasthenia gravis (H CC) [G70.00] Start: 09-12-2023 End: 09-12-2023 ambulatory JASIEL TURNER Facility:[facility] Start: 09-05-2023 End: 09-05-2023 [facility]MINISTRATOR-MOVEMENT ASSEMBLER Work Phone: [facility] Work Phone: Start: 09-05-2023 End: 09-05-2023 Periodic preventive med est patient 40-64yrs [facility] PROJECT ADMINISTRATOR-MOVEMENT ASSEMBLER Work Phone: [facility] Comment on above: Wellness examination (Primary Dx); Myasthenia gravis ([facility]) Start: 09-05-2023 End: 09-05-2023 ambulatory [facility] Start: 09-05-2023 Encounter for genera l adult medical examination without abnormal findings [facility] Start: 08-31-2023 Telephone encounter Jasiel Turner MD Work Phone: Thoracic Clinic Comment on above: FMLA Paperwork Start: 08-28-2023 ambulatory CLAIRE DE LOS SANTOS Facility:[facility] Start: 08-28-2023 End: 08-28-2023 Subsequent hospital visit by physician [facility] (Istat/3t) Work Phone: [facility] Radiology MRI Comment on above: Mediastinal mass [J9 8.59] Start: 08-24-2023 Admission to [facility] Jasiel Turner MD Work Phone: Thoracic Clinic Comment on above: Schedule Surgery (Ro botic b/l thymectomy ) Start: 08-24-2023 ambulatory Jasiel Turner MD Work Phone: [facility] Start: 08-24-2023 Patient encounter status Jasiel Turner MD Work Phone: [facility] Start: 08-17-2023 End: 08-17-2023 ambulatory CLAIRE DE LOS SANTOS Facility:[facility] Start: 08-06-2023 End: 08-06-2023 ambulatory CLAIER DE LOS SANTOS Facility:[facility] Start: 07-16-2023 End: 07-16-2023 ambulatory CLAIRE DE LOS SANTOS Facility:[facility] Start: 05-25-2021 End: 05-26-2021 ambulatory AKIL RODRIGUEZ Facility:[facility] Start: 01-19-2021 End: 01-19-[address] ODELL JOHNSON Facility:[facility] Start: 01-06-2021 End: 01-07-[address] BHAVNA GOMEZ Facility:[facility] Start: 12-07-2020 End: 12-07-[address] BHAVNA GOMEZ Facility:[facility] Procedures Date Procedure Procedure Detail Performing Clinician Start: 04-29-2024 Ct thorax w/contrast material Kandy Vallecillo APRN.MOVEMENT ASSEMBLER Work Phone: Start: 04-14-2024 IGP,APTIMA HPV,AGE GDLN Tiffanie HANNA Work Phone: Start: 03-03-2024 Follow-up visit Follow-up CRISTIAN TEIXEIRA Start: 10-29-2023 Radiologic exam ches t 2 views Kandy Vallecillo APRN.MOVEMENT ASSEMBLER Work Phone: Start: 10-16-2023 Ct thorax w/contrast material Zeferino Desouza MD Work Phone: Start: 09-21-2023 Radiologic exam ches t 2 views Jasiel Turner MD Work Phone: Start: 09-12-2023 Antibody screen SUKHI DE LOS SANTOS Comment on above: Order Comment: Speci men Type: BLOOD SPECIMEN Ordering Facility: [facility] Address: [address] [place] [address] Performed By: #### 5 [id number] #### [facility] CLIA [id number] [address] [place] [address] [place] [address] [place] Start: 09-12-2023 Radiologic exam ches t 2 views Jasiel Turner MD Work Phone: Start: 08-28-2023 Mri abdomen w/o & w/contrast material Jasiel Turner MD Work Phone: Start: 06-05-2023 Mammography Tiffanie HANNA Work Phone: Start: 05-30-2023 Mammography Toma schaffer RN Work Phone: Start: 01-19-2021 Colonoscopy Toma schaffer RN Work Phone: Plan of Treatment Date Care Activity Detail Author Start: 01-19-2031 Screening for malign ant neoplasm of colon Colonoscopy [facility] Start: 09-14-2026 Diabetes Screening Diabetes Screenin [facility] Start: 09-11-2026 Diabetes Screening Diabetes Screenin [facility] Start: 06-02-2026 Diabetes Screening Diabetes Screenin [facility] Start: 11-13-2025 End: 11-13-2025 Patient encounter procedure 11/13/2025 10:00 AM EDT Office Visit Radiation Oncology [address] [place] [address] Zeferino Desouza MD [address] [place] [address] 2 year follow up Radiation Oncology Comment on above: 2 year follow up Start: 05-20-2025 Tobacco Screening Tobacco Screening [facility] Start: 04-20-2025 End: 04-20-2025 Patient encounter procedure 04/20/2025 9:00 AM EDT Office Visit [facility] [address] [place] [address] Tiffanie Moreno PA [address] [place], [place] [id number] [facility] Start: 03-03-2025 Adult BMI Follow Up Plan Adult BMI Follow Up Plan [facility] Start: 03-03-2025 Adult BMI Screening Adult BMI Screen ing [facility] Start: 10-20-2024 End: 10-20-2024 Patient encounter procedure Radiology Comment on above: CCT Malignant neoplasm o f thymu 6 month follow up Start: 09-09-2024 End: 09-09-2024 Patient encounter procedure 09/09/2024 4:00 PM EST Office Visit [facility] [address] [place] [address] [place] [address] Cristian Teixeira, PROJECT ADMINISTRATOR-MOVEMENT ASSEMBLER [address] [place] [address] [facility] Start: 09-05-2024 Adult BMI Screening Adult BMI Screen ing [facility] Start: 09-05-2024 Tobacco Screening Tobacco Screening [facility] Start: 06-05-2024 Screening for malign ant neoplasm of breast Mammogram [facility] Start: 05-30-2024 Screening for malign ant neoplasm of breast Mammogram [facility] Start: 05-16-2024 End: 05-16-2024 Patient encounter procedure 05/16/2024 10:30 AM EST Office Visit Radiation Oncology [address] [place] [address] Zeferino Desouza MD [address] [place] [address] Followup Radiation Oncology Comment on above: Followup Start: 05-15-2024 End: 05-15-2024 Patient encounter procedure 05/15/2024 2:00 PM EST Office Visit Radiation Oncology [address] [place] [address] Zeferino Desouza MD [address] [place] [address] Followup Radiation Oncology Comment on above: Followup Start: 05-12-2024 End: 05-12-2024 Patient encounter procedure 05/12/2024 8:30 AM EST Office Visit [facility] [place] [address] Claire De Los Santos, [address] [place] [address] [facility] Start: 04-29-2024 End: 04-29-2024 Patient encounter procedure Radiology Comment on above: CT Malignant neoplasm o f thymus follow up / add on p er dr. ruzi Start: 04-14-2024 End: 06-14-2025 MG Breast - bilateral Screening Bilateral screening mammogram Imaging Routine Breast cancer screening by mammogram Expected: 04/14/2024, Expires: 06/14/2025 [facility] Work Phone: Comment on above: Expected: 04/14/2024 , Expires: 06/14/2025 Start: 04-14-2024 End: 04-14-2024 Patient encounter procedure 04/14/2024 9:00 AM EDT Office Visit [facility] [address] [place] [id number] Tiffanie Moreno PA [address] [place] [address] Arrived [facility] Comment on above: Arrived Start: 03-09-2024 Covid-19 Vaccine ( season) Covid-19 Vaccine ( season) [facility] Start: 03-09-2024 Covid-19 Vaccine ( season) Covid-19 Vaccine ( season) [facility] Start: 03-09-2024 Influenza vaccination [facility] Start: 03-03-2024 End: 03-03-2024 Patient encounter procedure 03/03/2024 3:45 PM EDT Office Visit [facility] [address] [place] [id number] Cristian Teixeira, VIVIAN-ISABELL [address] [place] [address] [facility] Start: 02-06-2024 End: 02-06-2024 Patient encounter procedure 02/06/2024 11:30 AM EDT Office Visit Neurology [address] [place] [address] Quinten Ruiz MD [address] [place] [address] f/u Neurology Comment on above: f/u Start: 01-03-2024 End: 01-03-2024 Patient encounter procedure 01/03/2024 2:00 PM EDT Office Visit Radiation Oncology [address] [place] [address] Zeferino Desouza MD [address] [place] [address] 6 week rv Radiation Oncology Comment on above: 6 week rv Start: 11-30-2023 End: 11-30-2023 Patient encounter procedure 11/30/2023 2:15 PM EDT Appointment Radiation Oncology [address] [place] [address] Mediastinum Radiation Oncology Comment on above: Mediastinum Start: 11-29-2023 End: 11-29-2023 Patient encounter procedure 11/29/2023 2:15 PM EDT Appointment Radiation Oncology [address] [place] [address] Mediastinum Radiation Oncology Comment on above: Mediastinum Start: 11-28-2023 End: 11-28-2023 Patient encounter procedure Radiation Oncology Comment on above: Mediastinum Location: [facility] Start: 11-27-2023 End: 11-27-2023 Patient encounter procedure 11/27/2023 2:15 PM EDT Appointment Radiation Oncology [address] [place] [address] Mediastinum Radiation Oncology Comment on above: Mediastinum Start: 11-26-2023 End: 11-26-2023 Patient encounter procedure 11/26/2023 2:15 PM EDT Appointment Radiation Oncology [address] [place] [address] Mediastinum Radiation Oncology Comment on above: Mediastinum Start: 11-23-2023 End: 11-23-2023 Patient encounter procedure 11/23/2023 2:15 PM EDT Appointment Radiation Oncology [address] [place] [address] Mediastinum Radiation Oncology Comment on above: Mediastinum Start: 11-22-2023 End: 11-22-2023 Patient encounter procedure 11/22/2023 2:15 PM EDT Appointment Radiation Oncology [address] [place] [address] Mediastinum Radiation Oncology Comment on above: Mediastinum Start: 11-21-2023 End: 11-21-2023 Patient encounter procedure Radiation Oncology Comment on above: Mediastinum Location: [facility] Start: 11-20-2023 End: 11-20-2023 Patient encounter procedure 11/20/2023 2:15 PM EDT Appointment Radiation Oncology [address] [place] [address] Mediastinum Radiation Oncology Comment on above: Mediastinum Start: 11-19-2023 End: 11-19-2023 Patient encounter procedure 11/19/2023 2:15 PM EDT Appointment Radiation Oncology [address] [place] [address] Mediastinum Radiation Oncology Comment on above: Mediastinum Start: 11-16-2023 End: 11-16-2023 Patient encounter procedure 11/16/2023 2:15 PM EDT Appointment Radiation Oncology [address] [place] [address] Mediastinum Radiation Oncology Comment on above: Mediastinum Start: 11-16-2023 End: 11-16-2023 Patient encounter procedure 11/16/2023 11:30 AM EDT Appointment Radiation Oncology [address] [place] [address] Mediastinum- this time for today per pt Radiation Oncology Comment on above: Mediastinum- this ti me for today per pt Start: 11-15-2023 End: 11-15-2023 Patient encounter procedure 11/15/2023 2:15 PM EDT Appointment Radiation Oncology [address] [place] [address] Mediastinum Radiation Oncology Comment on above: Mediastinum Start: 11-14-2023 End: 11-14-2023 Patient encounter procedure Radiation Oncology Comment on above: Mediastinum Location: [facility] Start: 11-13-2023 End: 11-13-2023 Patient encounter procedure 11/13/2023 2:15 PM EDT Appointment Radiation Oncology [address] [place] [address] Mediastinum Radiation Oncology Comment on above: Mediastinum Start: 11-12-2023 End: 11-12-2023 Patient encounter procedure 11/12/2023 2:15 PM EDT Appointment Radiation Oncology [address] [place] [address] Mediastinum Radiation Oncology Comment on above: Mediastinum Start: 11-09-2023 End: 11-09-2023 Patient encounter procedure 11/09/2023 1:45 PM EDT Appointment Radiation Oncology [address] [place] [address] Mediastinum Radiation Oncology Comment on above: Mediastinum Start: 11-08-2023 End: 11-08-2023 Patient encounter procedure 11/08/2023 2:15 PM EDT Appointment Radiation Oncology [address] [place] [address] Mediastinum Radiation Oncology Comment on above: Mediastinum Start: 11-07-2023 End: 11-07-2023 Patient encounter procedure Radiation Oncology Comment on above: Mediastinum Location: [facility] Start: 11-06-2023 End: 11-06-2023 Patient encounter procedure 11/06/2023 2:15 PM EDT Appointment Radiation Oncology [address] [place] [address] Mediastinum Radiation Oncology Comment on above: Mediastinum Start: 11-05-2023 End: 11-05-2023 Patient encounter procedure 11/05/2023 11:30 AM EDT Appointment Radiation Oncology [address] [place] [address] Mediastinum Radiation Oncology Comment on above: Mediastinum Start: 11-02-2023 End: 11-02-2023 Patient encounter procedure 11/02/2023 10:00 AM EDT Appointment Radiation Oncology [address] [place] [address] Mediastinum Radiation Oncology Comment on above: Mediastinum Start: 11-01-2023 End: 11-01-2023 Patient encounter procedure 11/01/2023 2:15 PM EDT Appointment Radiation Oncology [address] [place] [address] Mediastinum Radiation Oncology Comment on above: Mediastinum Start: 10-31-2023 End: 10-31-2023 Patient encounter procedure Radiation Oncology Comment on above: Mediastinum Location: [facility] Start: 10-30-2023 End: 10-30-2023 Patient encounter procedure 10/30/2023 2:15 PM EDT Appointment Radiation Oncology [address] [place] [address] [place] [address] Mediastinum Radiation Oncology Comment on above: Mediastinum Start: 09-12-2023 End: 12-12-2023 aPTT in Platelet poor plasma by Coagulation assay ACTIVATED PTT Lab STAT Myasthenia gravis (HCC) Preoperative testing Pre-procedure lab exam Expected: 09/12/2023, Expires: 12/12/2023 [facility] Work Phone: Comment on above: Expected: 09/12/2023 , Expires: 12/12/2023 Start: 09-12-2023 End: 12-12-2023 CBC W Auto Differential panel - Blood CBC + DIFF Lab STAT Myasthenia gravis (HCC) Preoperative testing Pre-procedure lab exam Expected: 09/12/2023, Expires: 12/12/2023 [facility] Work Phone: Comment on above: Expected: 09/12/2023 , Expires: 12/12/2023 Start: 09-12-2023 End: 12-12-2023 Comprehensive metabolic 2000 panel - Serum or Plasma COMP METABOLIC PANEL Lab STAT Myasthenia gravis (HCC) Preoperative testing Pre-procedure lab exam Expected: 09/12/2023, Expires: 12/12/2023 [facility] Work Phone: Comment on above: Expected: 09/12/2023 , Expires: 12/12/2023 Start: 09-12-2023 End: 12-12-2023 CONFIRM BLOOD TYPE CONFIRM BLOOD TYPE Blood Bank STAT Myasthenia gravis (HCC) Preoperative testing Pre-procedure lab exam Expected: 09/12/2023, Expires: 12/12/2023 [facility] Work Phone: Comment on above: Expected: 09/12/2023 , Expires: 12/12/2023 Start: 09-12-2023 End: 12-12-2023 PT panel - Platelet poor plasma by Coagulation assay PROTHROMBIN TIME/PT Lab STAT Myasthenia gravis (HCC) Preoperative testing Pre-procedure lab exam Expected: 09/12/2023, Expires: 12/12/2023 [facility] Work Phone: Comment on above: Expected: 09/12/2023 , Expires: 12/12/2023 Start: 09-12-2023 End: 12-12-2023 STAPH AUREUS PCR STAPH AUREUS PCR Lab STAT Myasthenia gravis (HCC) Preoperative testing Pre-procedure lab exam Expected: 09/12/2023, Expires: 12/12/2023 [facility] Work Phone: Comment on above: Expected: 09/12/2023 , Expires: 12/12/2023 Start: 09-12-2023 End: 12-12-2023 TYPE AND SCREEN,30 DAY TYPE AND SCREEN,30 DAY Blood Bank STAT Myasthenia gravis (HCC) Preoperative testing Pre-procedure lab exam Expected: 09/12/2023, Expires: 12/12/2023 [facility] Work Phone: Comment on above: Expected: 09/12/2023 , Expires: 12/12/2023 Start: 09-12-2023 End: 12-12-2023 URINALYSIS, DIPSTICK ONLY URINALYSIS, DIPSTICK ONLY Lab STAT Myasthenia gravis (HCC) Preoperative testing Pre-procedure lab exam Expected: 09/12/2023, Expires: 12/12/2023 [facility] Work Phone: Comment on above: Expected: 09/12/2023 , Expires: 12/12/2023 Start: 07-09-2023 Depression Assessment Depression Ass essment [facility] Start: 03-09-2023 Covid-19 Vaccine ( season) Covid-19 Vaccine ( season) [facility] Start: 03-09-2023 Influenza vaccination C [facility] Start: 2018 Administration of varicella zoster vaccine Zoster (Shingles) Vaccine (1 of 2) [facility] Start: 2018 Shingrix Vaccine (1 of 2) Neal grix Vaccine (1 of 2) [facility] Start: 2013 Lipid panel Lipid Screening [facility] Start: 2013 Screening for malign ant neoplasm of colon [facility] Start: 2008 Screening for malign ant neoplasm of breast [facility] Start: 1998 Screening for malign ant neoplasm of cervix [facility] Start: 1989 Screening for malign ant neoplasm of cervix [facility] Start: 1987 DTaP,Tdap and Td Vac cines (1 - Tdap) DTaP,Tdap and Td Vaccines (1 - Tdap) [facility] Start: 1987 Hepatitis B Vaccine (1 of 3 - 19+ 3-dose series) Hepatitis B Vaccine (1 of 3 - 19+ 3-dose series) [facility] Start: 1987 Urine microalbumin profile DTa P,Tdap,Td Vaccine (1 - Tdap) [facility] Start: 1986 Adult BMI Follow Up Plan Adult BMI Follow Up Plan [facility] Start: 1986 Anxiety Screening Anxiety Screening [facility] Start: 1986 Depression Screening Depression Scre ing [facility] Start: 1986 Diabetic foot examination Diabetic F oot Exam [facility] Start: 1986 Hepatitis C screening Hepatitis C Sc reening [facility] Start: 1986 HIV screening HIV Screening [facility] Start: 1980 Depression Screening Depression Scre [facility] Start: 1968 Glaucoma screening Diabetic Op hthalmology Exam [facility] Start: 1968 Hepatitis B Vaccine (1 of 3 - 3-dose series) Hepatitis B Vaccine (1 of 3 - 3-dose series) [facility] Start: 1968 Screening for malign ant neoplasm of colon [facility] End: 11-27-2024 CT Chest W contrast IV CT CHEST W IVCON Radiology Routine Malignant neoplasm of thymus (HCC) 1 Occurrences starting 10/29/2023 until 11/27/2024 [facility] Work Phone: Comment on above: 1 Occurrences starti ng 10/29/2023 until 11/27/2024 End: 05-29-2025 CT Chest W contrast IV CT CHEST W IVCON Radiology Routine Malignant neoplasm of thymus (HCC) 1 Occurrences starting 04/29/2024 until 05/29/2025 [facility] Work Phone: Comment on above: 1 Occurrences starti ng 04/29/2024 until 05/29/2025 End: 08-24-2024 ECG COMPLETE ECG COMPLETE ECG STAT Myasthenia gravis (HCC) Preoperative testing Pre-procedure lab exam 1 Occurrences starting 08/24/2023 until 08/24/2024 [facility] Work Phone: Comment on above: 1 Occurrences starti ng 08/24/2023 until 08/24/2024 End: 08-24-2024 Echocardiography ECHO Cardiology Routine Myasthenia gravis (HCC) Preoperative testing Pre-procedure lab exam 1 Occurrences starting 08/24/2023 until 08/24/2024 [facility] Work Phone: Comment on above: 1 Occurrences starti ng 08/24/2023 until 08/24/2024 THIN PREP TIS PAP AN D HR HPV DNA THIN PREP TIS PAP AND HR HPV DNA Pathology and Cytology Routine Well woman exam with routine gynecological exam Ordered: 04/14/2024 [facility] Comment on above: Ordered: 04/14/2024 US Thyroid gland US THYROID/PARA THYROID Radiology Routine Multiple thyroid nodules 09/27/2023 10:48 AM EDT [facility] Work Phone: End: 09-22-2024 XR Chest PA and Lateral XR CHEST 2V FRONTAL/LAT Radiology STAT Myasthenia gravis (HCC) Preoperative testing Pre-procedure lab exam 1 Occurrences starting 08/24/2023 until 09/22/2024 [facility] Work Phone: Comment on above: 1 Occurrences starti ng 08/24/2023 until 09/22/2024 End: 10-20-2024 XR Chest PA and Lateral XR CHEST 2V FRONTAL/LAT Radiology Routine Myasthenia gravis (HCC) Thymoma 1 Occurrences starting 09/21/2023 until 10/20/2024 [facility] Work Phone: Comment on above: 1 Occurrences starti ng 09/21/2023 until 10/20/2024 [facility] Immunizations Immunization Date Immunization Notes Care Provider [facility] 04-14-2022 Seasonal, quadrivalent, recombinant, injectable influenza vaccine, preservative free Zeferino Desouza MD Work Phone: [facility] 04-14-2022 influenza virus vaccine, unspecified formulation Jasiel Turner MD Work Phone: [facility] 05-13-2019 Influenza, injectabl e, Madin Trina Canine Kidney, preservative free, quadrivalent Cristian Lluvia PROJECT ADMINISTRATOR-MOVEMENT ASSEMBLER Work Phone: [facility] Payers Date Payer Category Payer Managed Care Other (unspecified) [employer] [id number] 2021 Private Health Insurance [employer] [id number] 2014 Unknown [id number] 1968 Unknown [id number] 1968 Unknown [id number] 593 1968 Unknown [id number] 1968 Unknown [id number] [id number] 1968 Unknown [id number] [id number] 1968 Unknown [id number] 1286 1968 Unknown [id number] 1968 Unknown [id number] 1959 Self-pay 1959 Unknown [id number] Unknown [id number] Social History Date Type Detail Facility Start: 06-06-2023 End: 07-16-2023 Tobacco smoking status MOIS Never smoked tobacco [facility] Start: 06-06-2023 End: 07-16-2023 Tobacco use and exposure Smokeless tobacco non-user [facility] Start: 08-06-2023 End: 05-16-2024 Alcohol intake Current drinker of alcohol (finding) [facility] Start: 07-16-2023 End: 08-06-2023 History of Social function [facility] Start: 07-16-2023 End: 08-06-2023 Tobacco use panel [facility] Adult Depression Screening Assessment 0 [facility] Start: 07-16-2023 Alcohol Comment Rarely [facility] Start: 1970 Sex Assigned At Female [facility] Start: 01-02-2023 Gender identity Identifies as female gender (finding) [facility] Start: 07-04-2023 Sexual orientation Heterosexual (pamela baker) [facility] Start: 09-05-2023 End: 05-20-2024 Alcohol intake Current non-drinker of alcohol (finding) [facility] Start: 1970 Sex Assigned At Not on file [facility] How often to you hav e a drink containing alcohol? Monthly or less [facility] How often do you hav e 6 or more drinks on 1 occasion? Never [facility] Start: 01-20-2024 Alcohol Comment Caffeien intak e on occasion [facility] Start: 02-09-2015 Sex Female (finding) [facility] NEGATED: Highlighted rowStart: JESSICAF History of tobacco use Passive smoker [facility] Clinical Notes 01-13-2021 to 05-20-2024 Cristian Teixeira APRN-MOVEMENT ASSEMBLER - 05/20/2024 8:15 AM ESTPatient InstructionsClQuinten magallon MD - 04/29/2024 12:56 PM Kandy Lanier APRN.ISABELL - 04/29/2024 11:03 AM EDTPatient Instructions Note Date & Type Note Facility 05-20-2024 History of Present illness Narrative Images from the original note were not included. [address] [facility] [id number] SUBJECTIVE: Patient ID: Marnie Arana is a 53 y.o. female. Patient presents to the office for routine follow up. She followed up with neurology for myasthenia gravis and is doing well and tapering off prednisone. She is having a lot of congestion for the past month. Does have a list of medications neurology states she cannot take some are atbs. Nasal Congestion Associated symptoms include congestion and sinus pressure. Pertinent negatives include no coughing, ear pain, neck pain, shortness of breath or sore throat. The following portions of the patient's history were reviewed and updated as appropriate: allergies, current medications, past family history, past medical history, past social history, past surgical history and problem list. REVIEW OF SYSTEMS: Review of Systems Constitutional: Negative for fatigue, fever and unexpected weight change. HENT: Positive for congestion, sinus pressure and sinus pain. Negative for ear pain and sore throat. Eyes: Negative for photophobia, pain, discharge and visual disturbance. Respiratory: Negative for cough and shortness of [...] sleep disturbance. The patient is not nervous/anxious. PHYSICAL EXAMINATION: Vitals: 05/20/24 0818 BP: 126/76 Pulse: 81 Resp: 16 SpO2: 98% Weight: 105.7 kg (233 lb) Physical Exam Constitutional: Appearance: She is well-developed. HENT: Head: Normocephalic and atraumatic. Right Ear: External ear normal. Left Ear: External ear normal. Nose: Congestion present. Eyes: Conjunctiva/sclera: Conjunctivae normal. Pupils: Pupils are equal, round, and reactive to light. Cardiovascular: Rate and Rhythm: Normal rate and regular rhythm. Heart sounds: Normal heart sounds. Pulmonary: Effort: Pulmonary effort is normal. Breath sounds: Normal breath sounds. Abdominal: General: Bowel sounds are normal. Musculoskeletal: Cervical back: Normal range of motion. Skin: General: Skin is warm and dry. Neurological: Mental Status: She is alert and oriented to person, place, and time. Psychiatric: Mood and Affect: Mood normal. ASSESSMENT/PLAN: Marnie was seen today for nasal congestion. Diagnoses and all orders for this visit: Myasthenia gravis ([facility]) Thymoma Acute non-recurrent maxillary sinusitis Follow-up: Cefdinir 300mg bid for ten days Keep appointments with specialist Follow up in six months or as needed Patient noted to have elevated BMI and the following intervention(s) were applied: encouragement to exercise. SO Briones 05/20/24 0835 documented in this encounter [facility] 04-29-2024 Instructions Quinten Ruiz MD - 04/29/2024 1:28 PM EDT Our plan: - try stopping the mestinon - go down on the prednisone in the following fashion; - May 09: start 4 mg/day - Jun 08: start 3 mg/day - Jul 09: start 2 mg/day - Aug 09: start 1 mg/day - September 06: stop prednisone - if your symptoms start to come back, return to the previous dose that had the symptoms controlled and contact my office - continue calcium and vitamin D while on prednisone documented in this encounter [facility] 04-29-2024 Note HNO ID: [id number] Author: QUINTEN RUIZ MD Service: ? Author Type: Physician Type: Progress Notes Filed: 04/29/2024 13:58 Note Text: I saw Marnie Arana at the [facility] [place] on 04/29/24 in follow up for thymomatous seropositive MG (ocular). HPI: Ms. 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 At that visit she had completed treatment for her thymoma and was asymptomatic on low dose prednisone and the plan was to continuing to wean prednisone dose. Since their last visit: Two kids in college, one in [place] (will graduate in six weeks) and one at [employer]. 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 Will have another CT scan x 6 months and do that for two years. No symptoms of MG. No ocular symptoms (diplopia, eyelid ptosis). Is continuing to use mestinon once daily although more for comfort. Mar 09, went down to 5 mg pred/day. ROS: Pertinent positive and negative systems reviewed in HPI. Medications: Current Outpatient Medications Medication Sig predniSONE (DELTASONE) 5 mg tablet Take 5 mg by mouth once daily. pyRIDostigmine bromide 30 mg tab Take 30 mg by mouth once daily. iv contrast (will be provided with radiology [...] in the CT contrast administration guidelines link. cholecalciferol, vitamin D3, (VITAMIN D3 ORAL) Take 2,000 Units by mouth once daily. ibuprofen (MOTRIN) 600 mg tablet Take 1 tablet by mouth every 6 hours as needed for pain. (Patient not taking: Reported on 04/29/2024) No current facility-administered medications for this visit. Allergies: ALLERGIES No Known Allergies Exam: 04/29/24 1245 BP: 122/79 BP Site: Left Arm BP Position: Sitting BP Cuff Size: Large Adult Pulse: 86 SpO2: 97% Weight: 103.6 kg (228 lb 6.3 oz) Height: 160 cm (5' 3 ) [...] s/p thymectomy and adjuvant radiation. Neurologic exam remains normal and asymptomatic so would classify currently as pharmacologic remission. Will continue slow steroid taper and monitor for any symptom recurrence. Plan: Reduce daily prednisone dose by 1 mg/month until off If symptoms recur on pred taper go back to previous dose and contact office Stop pyridostigmine Continue vit D and Ca++ RV in ~ 5 months Quinten Ruiz MD [facility] [address] [place] [address] I spent a total of 25 minutes on the date of the service which included preparing to see the patient, [id number] patient care, completing clinical documentation, obtaining and/or [...] 1=Occurs, but not daily Eyelid droop: 0=None Answers submitted by the patient for this visit: Activities of Daily Living (MG-ADL) (Submitted on 04/23/2024) Chewin=Normal Swallowin=Normal Breathin=Normal Impairment of ability to brush teeth or comb hair: 0=None Impairment of ability to rise from a chair: 0=None Double vision: 0=None Eyelid droop: 0=None [facility] 04-29-2024 History of Present illness Narrative I saw Marnie Arana at the [facility] on 04/29/24 in follow up for thymomatous seropositive MG (ocular). HPI: Ms. 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 At that visit she had completed treatment for her thymoma and was asymptomatic on low dose prednisone and the plan was to continuing to wean prednisone dose. Since their last visit: Two kids in college, one in [employer] (will graduate in six weeks) and one at [employer]. 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 Will have another CT scan x 6 months and do that for two years. No symptoms of MG. No ocular symptoms (diplopia, eyelid ptosis). Is continuing to use mestinon once daily although more for comfort. Mar 09, went down to 5 mg pred/day. ROS: Pertinent positive and negative systems reviewed in HPI. Medications: Current Outpatient Medications Medication Sig predniSONE (DELTASONE) 5 mg tablet Take 5 mg by mouth once daily. pyRIDostigmine bromide 30 mg tab Take 30 mg by mouth once daily. iv contrast (will be provided with radiology [...] in the CT contrast administration guidelines link. cholecalciferol, vitamin D3, (VITAMIN D3 ORAL) Take 2,000 Units by mouth once daily. ibuprofen (MOTRIN) 600 mg tablet Take 1 tablet by mouth every 6 hours as needed for pain. (Patient not taking: Reported on 04/29/2024) No current facility-administered medications for this visit. Allergies: ALLERGIES No Known Allergies Exam: 04/29/24 1245 BP: 122/79 BP Site: Left Arm BP Position: Sitting BP Cuff Size: Large Adult Pulse: 86 SpO2: 97% Weight: 103.6 kg (228 lb 6.3 oz) Height: 160 cm (5' 3 ) [...] s/p thymectomy and adjuvant radiation. Neurologic exam remains normal and asymptomatic so would classify currently as pharmacologic remission. Will continue slow steroid taper and monitor for any symptom recurrence. Plan: Reduce daily prednisone dose by 1 mg/month until off If symptoms recur on pred taper go back to previous dose and contact office Stop pyridostigmine Continue vit D and Ca++ RV in ~ 5 months Quinten Ruiz MD [facility] [address] [place] [address] I spent a total of 25 minutes on the date of the service which included preparing to see the patient, [id number] patient care, completing clinical documentation, obtaining and/or [...] 1=Occurs, but not daily Eyelid droop: 0=None Answers submitted by the patient for this visit: Activities of Daily Living (MG-ADL) (Submitted on 04/23/2024) [place]=Normal Swallowin=Normal Breathin=Normal Impairment of ability to brush teeth or comb hair: 0=None Impairment of ability to rise from a chair: 0=None Double vision: 0=None Eyelid droop: 0=None documented in this encounter [facility] 04-29-2024 History of Present illness Narrative Part of this note was copied from previous note, all content has been individually reviewed, updated as necessary, and thoroughly reviewed. [facility] - OUTPATIENT THORACIC SURGERY CLINIC NOTE PT NAME: Marnie Ange [facility] NO: [id number] THORACIC SURGEON: Jasiel Turner M.D. DATE OF SERVICE: 04/29/2024 PRINCIPAL DX: -T1aN0 stage IIa Thymoma, (+) [...] within [facility] ([facility], [facility], [facility], [facility], [facility], [facility], or [facility]) in a manner consistent with CLIA [...] Findings Age-appropriate involutional changes REASON FOR VISIT: CT Surveillance HPI: Marnie Arana is a 53 year old female never smoker with PMHx of ocular myasthenia gravis (Ab +) and a thymoma. Preoperative Hospital Course: Presented with blurry vision in the evening as well as intermittent double vision, symptoms began 05/2023. 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 and [...] was discharged 09/15/23 with left shasta drain. Tumor was noted to be present at the anterior and posterior margins of the specimen (R1). She completed a course of post-operative radiation therapy to the post-operative bed/chest on 11/30/2023 (5400 cGy delivered in 27 fractions). PHYSICAL EXAM: VITAL SIGNS: BP 162/78 Pulse 80 Temp 36.4 C (97.6 F) (Oral) Resp 14 Ht 160 cm (5' 3 ) Wt 103.6 kg (228 lb 6.4 oz) SpO2 98% BMI 40.46 kg/m Room air Incision location: Bilateral Thoracoport sites Incision Assessment: Well approximated and no drainage, swelling, erythema or warmth Drain/Tubes: NA IMAGING/TESTS: CT Chest 04/29/2024 IMPRESSION: 1. Status post resection of anterior mediastinal mass with no evidence of recurrent/residual disease. 2. New evolving postradiation changes in the medial left upper lobe. 3. Stable 4 mm right upper lobe lung nodule. No new or enlarging pulmonary nodule. Continued attention on imaging surveillance is recommended. 4. No thoracic lymphadenopathy. INTERVAL HISTORY: Marnie Arana returns to clinic today following CT scan of the chest. She has been doing well, and denies cough, SOB, hemoptysis, unintentional weight loss. No vision changes of late. Completed radiation 11/30/23. Tolerated this well. CT scan shows no evidence of new or recurrent disease. Noted post radiation changes in the left upper lobe. She has follow up with neurology today. She will return in [address] chest. . IMPRESSION: 53 year old female s/p Robotic bilateral thymectomy 09/13/[address] Jasiel Turner for T1aN0 stage IIa Thymoma, (+) margin, Myasthenia Gravis, PLAN: - return 10/29/23 with a CXR. - neurology management with fidel Saba later today - radiation oncology management with fidel Jacques 05/16/24 Kandy Vallecillo APRN.MOVEMENT ASSEMBLER documented in this encounter [facility] 04-29-2024 Note HNO ID: [id number] Author: KANDY VALLECILLO APRN.CNP Service: ? Author Type: Nurse Practitioner Type: Progress Notes Filed: 04/29/2024 13:03 Note Text: Part of this note was copied from previous note, all content has been individually reviewed, updated as necessary, and thoroughly reviewed. [facility] - OUTPATIENT THORACIC SURGERY CLINIC NOTE PT NAME: Marnie L [facility] NO: [id number] THORACIC SURGEON: Jasiel Turner M.D. DATE OF SERVICE: 04/29/2024 PRINCIPAL DX: -T1aN0 stage IIa Thymoma, (+) [...] laboratory within [facility]?s [facility] [place] ([facility], [facility], [facility], [facility], [facility], [facility], or [facility]) in a manner consistent with CLIA [...] Findings Age-appropriate involutional changes REASON FOR VISIT: CT Surveillance HPI: Marnie Arana is a 53 year old female never smoker with PMHx of ocular myasthenia gravis (Ab +) and a thymoma. Preoperative Hospital Course: Presented with blurry vision in the evening as well as intermittent double vision, symptoms began 05/2023. 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 and [...] was discharged 09/15/23 with left shasta drain. Tumor wa (more content not included)... [facility] 04-29-2024 History of Present illness Narrative Radiology Service Progress Note DATE OF SERVICE: April 29, 2024 TIME: 9:49 AM PATIENT WEIGHT: 230 LBS PATIENT IDENTITY VERIFICATION COMPLETED USING TWO (2) [...] not accurately reflect actual GFR. P.O.C.T. RESULTS: N/A April 29, 2024 TREATMENT: N/A IV SITE: Ambulatory: A peripheral IV was started in the Right antecubital site with a Angio cath: 22 gauge. IV SITE APPEARANCE: Clean,Dry and Intact SIGNATURE: Prosper Razo RN PATIENT NAME: Marnie Arana DATE: April 29, 2024 TIME: 9:49 AM Radiology Service Progress Note PATIENT NAME: Marnie Arana DATE OF SERVICE: April 29, 2024 TIME: 10:03 AM PATIENT IDENTITY VERIFICATION COMPLETED USING TWO [...] PATIENT PRESENTS WITH AN IMPLANTABLE OR ATTACHED GARAGE DOOR SERVICE TECHNICIAN: No RADIOLOGY DEPARTMENT: CT; Exam(s) Completed: Chest PERIPHERAL IV DATA: Site assessment: Clean,Dry and Intact, Site disposition Discontinued SIGNED BY: RT Nicky(Carlos) April 29, 2024 10:03 AM documented in this encounter [facility] 04-29-2024 Note HNO ID: [id number] Author: PROSPER RAZO RN Service: Nursing Author Type: Registered Nurse Type: Progress Notes Filed: 04/29/2024 09:52 Note Text: Radiology Service Progress Note DATE OF SERVICE: April 29, 2024 TIME: 9:49 AM PATIENT WEIGHT: 230 LBS PATIENT IDENTITY VERIFICATION COMPLETED USING TWO (2) [...] not accurately reflect actual GFR. P.O.C.T. RESULTS: N/A April 29, 2024 TREATMENT: N/A IV SITE: Ambulatory: A peripheral IV was started in the Right antecubital site with a Angio cath: 22 gauge. IV SITE APPEARANCE: Clean,Dry and Intact SIGNATURE: Prosper Razo RN PATIENT NAME: Marnie Arana DATE: April 29, 2024 TIME: 9:49 AM [facility] 04-29-2024 Note HNO ID: [id number] Author: ANNABEL NEWMAN RT(R) Service: Radiology Author Type: Meeting Coordinator Type: Progress Notes Filed: 04/29/2024 10:08 Note Text: Radiology Service Progress Note PATIENT NAME: Marnie Arana DATE OF SERVICE: April 29, 2024 TIME: 10:03 AM PATIENT IDENTITY VERIFICATION COMPLETED USING TWO [...] PATIENT PRESENTS WITH AN IMPLANTABLE OR ATTACHED GARAGE DOOR SERVICE TECHNICIAN: No RADIOLOGY DEPARTMENT: CT; Exam(s) Completed: Chest PERIPHERAL IV DATA: Site assessment: Clean,Dry and Intact, Site disposition Discontinued SIGNED BY: RT Nicky(R) April 29, 2024 10:03 AM [facility] 04-14-2024 History of Present illness Narrative Reason for Appointment: Patient ID: Yaneth Arana is a 53 y.o. female who presents for Well Women Visit Patient presents today for Annual Exam. MEDICATIONS Current Outpatient Medications Medication Instructions predniSONE (DELTASONE) 10 mg, Oral, 2 times daily pyridostigmine (MESTINON) 30 mg, Oral, 3 times daily ALLERGIES No Known Allergies PROBLEMS Active Ambulatory Problems Diagnosis Date Noted Vision loss 01/20/2024 Myasthenia gravis (CMS/HCC) 01/20/2024 Thymoma 01/20/2024 Thyroid nodule (CMS/HCC) 01/20/2024 Liver lesion 01/20/2024 Resolved Ambulatory Problems Diagnosis Date Noted No Resolved Ambulatory Problems Past Medical History: Diagnosis Date H/O myasthenia gravis HISTORY PAST MEDICAL HISTORY SOCIAL HISTORY Past Medical History: Diagnosis Date H/O myasthenia gravis Social History Tobacco Use Smoking status: Never Smokeless tobacco: Not on file Substance Use Topics Alcohol use: Yes Comment: Caffeien intake on occasion Drug use: Not on file FAMILY HISTORY Family History Problem Relation Name Age of Onset Cancer Mother SURGICAL HISTORY Past Surgical History: Procedure Laterality Date GANGLION CYST EXCISION Left 1997 wrist - Dr. Ward HYSTERECTOMY 2017 KNEE SURGERY Right 03/12/2020 scope- Dr. Almaguer REVIEW OF SYSTEMS Review of Systems: Review of Systems Constitutional: Negative. HENT: Negative. Eyes: Negative. Respiratory: Negative. Cardiovascular: Negative. Gastrointestinal: Negative. Genitourinary: Negative. Musculoskeletal: Negative. Skin: Negative. Neurological: Negative. All other systems reviewed and are negative. Hematological: Negative. Endocrine: Negative. Allergic/Immunologic: Negative. OBJECTIVE Objective: Physical Exam Constitutional: Appearance: Normal appearance. She is well-developed. Genitourinary: Vulva normal. Vaginal cuff intact. Right Adnexa: not tender and no mass present. Left Adnexa: not tender and no mass present. Cervix is not absent. No cervical discharge. Uterus is not absent. Breasts: Breasts are soft. Right: Normal. Left: Normal. HENT: Head: Normocephalic. Nose: Nose normal. Mouth/Throat: Mouth: Mucous membranes are moist. Cardiovascular: Rate and Rhythm: Normal rate and regular rhythm. Pulmonary: Effort: Pulmonary effort is normal. Abdominal: General: Bowel sounds are normal. There is no distension. Palpations: Abdomen is soft. Tenderness: There is no abdominal tenderness. There is no guarding or rebound. Musculoskeletal: General: No swelling. Normal range of motion. Cervical back: Normal range of motion. Right lower leg: No edema. Left lower leg: No edema. Neurological: General: No focal deficit present. Mental Status: She is alert and oriented to person, place, and time. Skin: General: Skin is warm and dry. Psychiatric: Mood and Affect: Mood normal. Behavior: Behavior normal. Vitals and nursing note reviewed. Exam conducted with a manager crisis present. Vitals: Estimated body mass index is 39.48 kg/m as calculated from the following: Height as of this encounter: 5' 4 . Weight as of this encounter: 230 lb. BP: 138/86 No LMP recorded. Patient has had a hysterectomy. ASSESSMENT & PLAN ICD-10-CM 1. Well woman exam with routine gynecological exam Z01.419 THIN PREP TIS PAP AND HR HPV DNA 2. Breast cancer screening by mammogram Z12.31 Bilateral screening mammogram Bilateral screening mammogram 3. Postmenopausal state Z78.0 CANCELED: DEXA bone density Annual: Patient presents today for an annual exam. Patient states she is currently under treatment for myasthenia gravis and found a thyoma which she received radiation treatment. She states myasthenia gravis basically affected her vision. Pt states she is currently weaning down from prednisone. Pap was obtained without difficulty and patient given mammogram order to have scheduled/obtained. Orders Placed This Encounter Procedures Bilateral screening mammogram Follow Up: Patient is to return in one year for annual unless needed otherwise. 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 ROS: Pertinent [...] RV in 2-3 months Quinten Ruiz MD [facility] [address] [place] [address] I spent a total of 30 minutes on the date of the service which included preparing to see the patient, [id number] patient care, completing clinical documentation, obtaining and/or [...] Eyelid droop: 0=None documented in this encounter [facility] 02-06-2024 Note HNO ID: [id number] Author: QUINTEN RUIZ MD Service: ? 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 ROS: Pertinent [...] RV in 2-3 months Quinten Ruiz MD [facility] [address] [place], [place] [id number] I spent a total of 30 minutes on the date of the service which included preparing to see the patient, [id number] patient care, completing clinical documentation, obtaining and/or [...] 1=Occurs, but not daily Eyelid droop: 0=None [facility] 01-03-2024 History of Present illness Narrative Radiation Oncology - Follow Up Note PATIENT NAME: Marnie Arana PATIENT DIAGNOSIS/PATIENT IDENTIFICATION: Ms. 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 documented in this encounter [facility] 01-03-2024 Note HNO ID: [id number] Author: ZEFERINO DESOUZA MD Service: ? Author Type: Physician Type: Progress Notes Filed: 01/15/2024 05:38 Note Text: Radiation Oncology - Follow Up Note PATIENT NAME: Marnie Arana PATIENT DIAGNOSIS/PATIENT IDENTIFICATION: Ms. 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 [facility] 12-18-2023 Telephone encounter Note Thanks! Zeferino [facility] Work Phone: 12-18-2023 Miscellaneous Notes Thanks! Zeferino [...] Desouza as scheduled on 01/02. Dilcia Price, AGATHA documented in this encounter [facility] 12-18-2023 Telephone encounter Note Call placed to pt to check status post XRT. Pt states overall she is doing great. She has had no issues at all after treatment. She states I feel so good, it makes me wonder if it worked. She is currently on vacation and doing well. She will see Dr Desouza as scheduled on 01/02. Dilcia Price, AGATHA [facility] 11-30-2023 History of Present illness Narrative [facility] Radiation Oncology Department RADIATION ONCOLOGY - COMPLETION NOTE PATIENT: MARNIE ARANA: 1970 DATES OF TREATMENT: 10/25/23 - 11/30/23 DIAGNOSIS: Ms. 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 Author Type: Physician Type: Progress Notes Filed: 12/13/2023 05:45 Note Text: [facility] Radiation Oncology Department RADIATION ONCOLOGY - COMPLETION NOTE PATIENT: MARNIE ARANA: 1970 DATES OF TREATMENT: 10/25/23 - 11/30/23 DIAGNOSIS: Ms. 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 Author Type: Physician Type: Progress Notes Filed: 12/03/2023 19:53 Note Text: Radiation Oncology - On Treatment Review (OTR) Note PATIENT NAME: Marnie Arana PATIENT DIAGNOSIS: Ms. 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 Zeferino Desouza MD [facility] 11-28-2023 History of Present illness Narrative Radiation Oncology - On Treatment Review (OTR) Note PATIENT NAME: Marnie Arana PATIENT DIAGNOSIS: Ms. 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 [facility] 11-21-2023 Nurse Note Status: Post-menopausal. documented in this encounter [facility] 11-21-2023 Note HNO ID: [id number] Author: ZEFERINO DESOUZA MD Service: ? Author Type: Physician Type: Progress Notes Filed: 12/03/2023 17:08 Note Text: Radiation Oncology - On Treatment Review (OTR) Note PATIENT NAME: Marnie Arana PATIENT DIAGNOSIS: Ms. 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 Zeferino Desouza MD [facility] 11-21-2023 History of Present illness Narrative Radiation Oncology - On Treatment Review (OTR) Note PATIENT NAME: Marnie Arana PATIENT DIAGNOSIS: Ms. 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 Author Type: Physician Type: Progress Notes Filed: 11/27/2023 06:18 Note Text: Radiation Oncology - On Treatment Review (OTR) Note PATIENT NAME: Marnie Arana PATIENT DIAGNOSIS: Ms. 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 Zeferino Desouza MD [facility] 11-07-2023 Nurse Note Status: Post-menopausal. [facility] 11-07-2023 Nurse Note Status: Post-menopausal. documented in this encounter [facility] 11-07-2023 History of Present illness Narrative Radiation Oncology - On Treatment Review (OTR) Note PATIENT NAME: Marnie Arana PATIENT DIAGNOSIS: Ms. 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 Author Type: Physician Type: Progress Notes Filed: 11/07/2023 15:37 Note Text: Radiation Oncology - On Treatment Review (OTR) Note PATIENT NAME: Marnie Arana PATIENT DIAGNOSIS: Ms. 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 Zeferino Desouza MD [facility] 10-31-2023 History of Present illness Narrative Radiation Oncology - On Treatment Review (OTR) Note PATIENT NAME: Marnie Arana PATIENT DIAGNOSIS: Ms. 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 Author Type: Physician Type: Progress Notes Filed: 11/06/2023 05:54 Note Text: Radiation Oncology - On Treatment Review (OTR) Note PATIENT NAME: Marnie Arana PATIENT DIAGNOSIS: Ms. 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 Zeferino Desouza MD [facility] 04-24-2024 Nurse Note Status: Patient states there is no possibility she is at this time. [facility] 10-31-2023 Nurse Note Status: Patient states there is no possibility she is at this time. documented in this encounter [facility] 10-29-2023 Instructions David Dsouza MD - 10/29/2023 [...] in 3-4 months. documented in this encounter [facility] 10-29-2023 History of Present illness Narrative [facility] Note- Established patient Provider: David Dsouza MD ([place] Fellow)/ Quinten Ruiz MD ([place] Staff) Date of last clinic visit: 07/16/23 [...] fatigue become worse. She saw her local relay repairer who did not find objective evidence of [...] To contact this office via telephone and/or [employer] if no communication of results received by expected turnaround time, as discussed during the visit. To aid with communication, patients (and primary care physicians) can sign up for [employer] (or Paco), which allows online appointment scheduling, transmission of labs results and chart notes, and secure email communication. To establish either account, visit [email or web address]. David Dsouza MD [place] Fellow, [facility] Neurological [place] In the service of Quinten Ruiz MD ([place] Staff) [NB- clinic note not considered final until co-signed by NM Staff] Primary care provider: Ana María Mckeon MD ([facility]) [address] [place] [address] I saw and evaluated the patient, reviewed and discussed the yañez elements and findings with the fellow, and agree with and edited where appropriate the above note. Medical Decision Making: Problems: Low: Stable chronic illness Data: Unique test result(s) reviewed: 1 Risk: Moderate: Drug management Medical Decision Making Level: 3 - Low Quinten Ruiz MD documented in this encounter [facility] 10-29-2023 Note HNO ID: [id number] Author: QUINTEN RUIZ MD Service: ? Author Type: Fellow Type: Progress Notes Filed: 10/30/2023 11:05 Note Text: S90 Neuromuscular Medicine ([place]) [facility]uscular [facility] Neurological [place] [facility] Note- Established patient Provider: David Dsouza MD ([place] Fellow)/ Quinten Ruiz MD ([place] Staff) Date of last clinic visit: 07/16/23 [...] fatigue become worse. She saw her local relay repairer who did not find objective evidence of [...] To contact this office via telephone and/or Optim[employer] if no communication of results received by expected turnaround time, as discussed during the visit. To aid with communication, patients (and primary care physicians) can sign up for [employer] (or [employer]), which allows online appointment scheduling, transmission of l (more content not included)... [facility] 10-29-2023 History of Present illness Narrative [...] PATIENT PRESENTS WITH AN IMPLANTABLE OR ATTACHED GARAGE DOOR SERVICE TECHNICIAN: No RADIOLOGY DEPARTMENT: General X-ray: Exam(s) Completed: Chest X-Ray PERIPHERAL IV DATA: Not applicable SIGNED BY: RT Pura(R) October 29, 2023 1:26 PM documented in this encounter [facility] 10-29-2023 Note HNO ID: [id number] Author: VENANCIO RAMOS RT(Carlos) Service: Radiology Author Type: Technologist Type: Progress [...] PATIENT PRESENTS WITH AN IMPLANTABLE OR ATTACHED GARAGE DOOR SERVICE TECHNICIAN: No RADIOLOGY DEPARTMENT: General X-ray: Exam(s) Completed: Chest X-Ray PERIPHERAL IV DATA: Not applicable SIGNED BY: RT Pura(Carlos) October 29, 2023 1:26 PM [facility] 10-29-2023 Note HNO ID: [id number] Author: KANDY VALLECILLO APRN.MOVEMENT ASSEMBLER Service: ? Author Type: Nurse Practitioner Type: Progress Notes Filed: 10/29/2023 14:41 Note Text: [facility] - OUTPATIENT THORACIC SURGERY CLINIC NOTE PT NAME: Marnie Arana [facility] NO: [id number] THORACIC SURGEON: Jasiel Turner M.D. DATE OF [...] been determined by the performing laboratory within [facility] Pathology and Laboratory Medicine [place] ([facility], [facility], [facility], [facility], [facility], [facility], or [facility]) in a manner consistent with CLIA [...] vision, symptoms began 05/2023. 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 R (more content not included)... [facility] 10-29-2023 History of Present illness Narrative Images from the original note were not included. [facility] - OUTPATIENT THORACIC SURGERY CLINIC NOTE PT NAME: Marnie Arana [facility] NO: [id number] THORACIC SURGEON: Jasiel Turner M.D. DATE OF [...] within [facility] s [facility] Pathology and Laboratory Medicine [place] ([facility], [facility], [facility], [facility], [facility], [facility], or [facility]) in a manner consistent with CLIA [...] vision, symptoms began 05/2023. 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 and [...] with Dr Dsouza, f/u 10/29/23 Kandy Vallecillo APRN.MOVEMENT ASSEMBLER documented in this encounter [facility] 10-16-2023 History of Present illness Narrative Radiology [...] PATIENT PRESENTS WITH AN IMPLANTABLE OR ATTACHED GARAGE DOOR SERVICE TECHNICIAN: No RADIOLOGY DEPARTMENT: CT; Exam(s) Completed: Chest PERIPHERAL IV DATA: Site assessment: Clean,Dry and Intact, Site disposition Discontinued SIGNED BY: RT Beau(R) October 16, 2023 12:33 PM documented in this encounter [facility] 10-16-2023 Note HNO ID: [id number] Author: DEIRDRE HOUSE RN Service: ? Author [...] DATE: October 16, 2023 TIME: 12:31 PM [facility] 10-16-2023 Note HNO ID: [id number] Author: EBONI CARRANZA RT(R) Service: ? Author Type: Technologist [...] PATIENT PRESENTS WITH AN IMPLANTABLE OR ATTACHED GARAGE DOOR SERVICE TECHNICIAN: No RADIOLOGY DEPARTMENT: CT; Exam(s) Completed: Chest PERIPHERAL IV DATA: Site assessment: Clean,Dry and Intact, Site disposition Discontinued SIGNED BY: RT Beau(R) October 16, 2023 12:33 PM [facility] 10-12-2023 History of Present illness Narrative MARNIE ARANA Ange [id number] 10/12/2023 [facility] Radiation Oncology Department SIMULATION NOTE DATE OF SIMULATION: 10/12/2023 THERAPIST: Key Day MACHINE: Geomagic DIAGNOSIS: Malignant neoplasm of anterior iioefxdcrivT96.1 AREA: THORAX CONTRAST: IV <Select> Consent in [...] CARL 45:27 PM documented in this encounter [facility] 10-12-2023 History of Present illness Narrative SUMIT MARNIE L [id number] 10/12/2023 [facility] Department of Radiation Oncology Treatment Planning Note [...] M.D. 45:04 PM documented in this encounter [facility] 10-12-2023 Note HNO ID: [id number] Author: ZEFERINO DESOUZA MD Service: ? Author Type: Physician Type: Progress Notes Filed: 10/12/2023 17:27 Note Text: MARNIE ARANA [id number] 10/12/2023 [facility] Radiation Oncology Department SIMULATION NOTE DATE OF SIMULATION: 10/12/2023 THERAPIST: Key Day MACHINE: Geomagic DIAGNOSIS: Malignant neoplasm of anterior nqofcciimhyX23.1 AREA: THORAX CONTRAST: IV Consent in Epic: [...] Zeferino Desouza M.D. / CARL 45:27 PM [facility] 10-12-2023 Note HNO ID: [id number] Author: ZEFERINO DESOUZA MD Service: ? Author Type: Physician Type: Progress Notes Filed: 10/24/2023 17:04 Note Text: MARNIE ARANA [id number] 10/12/2023 [facility] Department of Radiation Oncology Treatment Planning Note [...] Electronically Signed Zeferino Desouza M.D. 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 Patient has an Onbody or Implanted device: No Signed by: Marian Vines LPN documented in this encounter [facility] 10-11-2023 Note HNO ID: [id number] Author: ZEFERINO DESOUZA MD Service: ? Author Type: Physician Type: Progress Notes Filed: 10/23/2023 04:57 Note Text: Radiation Oncology - New Patient/Consult Note PATIENT NAME: Marnie Arana PATIENT REQUESTING PHYSICIAN: Dr. Jasiel Turner DIAGNOSIS: Stage I, [id number] (AJCC)/Stage IIa ([place]) thymoma (Type AB) PATIENT IDENTIFICATION: This patient was seen in the Department of Radiation Oncology at the [place] with Zeferino Desouza MD. She was accompanied today by her spouse. Final recommendations will be communicated back to the requesting physician by way of the shared medical record, or letter to requesting physician via US mail. HISTORY OF PRESENT ILLNESS: Ms. Arana is a 53-year-old woman from [place], [place], who was diagnosed with myasthenia gravis when she presented in May 2023 with symptoms of double vision. Initial workup by her relay repairer included a CT of her orbits which [...] has 2 children, and lives in the [place], [place] area. 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 [facility] 10-11-2023 History of Present illness Narrative Images from the original note were not included. Radiation Oncology - New Patient/Consult Note PATIENT NAME: Marnie Arana PATIENT REQUESTING PHYSICIAN: Dr. 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 She was accompanied today by her spouse. Final recommendations will be communicated back to the requesting physician by way of the shared medical record, or letter to requesting physician via US mail. HISTORY OF PRESENT ILLNESS: Ms. Arana is a 53-year-old woman from [place], [place], who was diagnosed with myasthenia gravis when she presented in May 2023 with symptoms of double vision. Initial workup by her relay repairer included a CT of her orbits which [...] has 2 children, and lives in the [place], [place] area. 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 5. She will follow-up with Dr. Turner and her neurology team as scheduled for [...] which included preparing to see the patient, nvsz-to-pcll patient care, and counseling and educating the patient/family/caregiver. This document has been created with the use of voice recognition technology. It may contain inaccuracies, misspellings, inaccurate syntax or inappropriate word context that are a result of the inadequacies/shortcomings of said technology/software. documented in this encounter [facility] 10-11-2023 Nurse Note Pacemaker/Defibrillator?N Previous Cancer(s)?N Previous Radiation?N Lupus/Scleroderma?N On body monitoring device?N documented in this encounter [facility] 10-11-2023 Note Education (ALISONTSA) MARNIE ARANA ([id number]) 1970 F Date Time Provider Department 10/11/23 MARIAN VINES Reason for Visit: Patient Education [91] Visit Notes: >> Marian Vines LPN [facility] Oct 11, 2023 2:57 PM Status: Signed Radiation Therapy - Patient Education Note PATIENT NAME: Marnie Arana PATIENT October 11, 2023 [facility] FACILITY/LOCATION: [facility] READINESS TO LEARN Cognitive Ability: [...] need for social work, van service, and mobile health vehicle operator. Patient has an Onbody or Implanted device: [...] Encounter Status:Closed by MARIAN VINES on 10/11/23 [facility] 10-05-2023 Note HNO ID: [id number] Author: KANDY VALLECILLO APRN.ISABELL Service: ? Author Type: Nurse Practitioner Type: Progress Notes Filed: 10/05/2023 09:48 Note Text: Ms Arana is phoned to discuss the results of her pathology. She was found to have a type AB Thymoma. Margins were unfortunately positive for tumor. We will arrange for a radiation oncology consultation for her. Kandy Vallecillo APRN.ISABELL [facility] 09-27-2023 Note HNO ID: [id number] Author: ONIEL ROSENBERG RT(Carlos) Service: ? Author Type: Meeting Coordinator Type: Progress Notes Filed: 09/27/2023 10:11 Note [...] PATIENT PRESENTS WITH AN IMPLANTABLE OR ATTACHED GARAGE DOOR SERVICE TECHNICIAN: No RADIOLOGY DEPARTMENT: Ultrasound PERIPHERAL IV DATA: Not applicable SIGNED BY: RT Rosa(R) September 27, 2023 10:11 AM [facility] 09-26-2023 Miscellaneous Notes see letters. RTW on 10/15/2022 Kandi Price RN, BSN, [facility] documented in this encounter [facility] 09-21-2023 Instructions Kandy Vallecillo APRN.ISABELL - 09/21/2023 [...] 4 weeks after surgery. 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 Do not [...] a motor vehicle. documented in this encounter [facility] 09-21-2023 Note HNO ID: [id number] Author: KANDY VALLECILLO APRN.ISABELL Service: ? Author Type: Nurse Practitioner Type: Progress Notes Filed: 09/21/2023 18:44 Note Text: [facility] - OUTPATIENT THORACIC SURGERY CLINIC NOTE PT NAME: aMrnie Arana [facility] NO: [id number] THORACIC SURGEON: Jasiel Turner M.D. DATE OF [...] vision, symptoms began 05/2023. 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 [facility] - OUTPATIENT THORACIC SURGERY CLINIC NOTE PT NAME: Marnie Arana [facility] NO: [id number] THORACIC SURGEON: Jasiel Turner M.D. DATE OF [...] vision, symptoms began 05/2023. 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 and [...] with Dr Dsouza, f/u 10/29/23 Kandy Vallecillo APRN.MOVEMENT ASSEMBLER documented in this encounter [facility] 09-21-2023 History of Present illness Narrative Radiology [...] PATIENT PRESENTS WITH AN IMPLANTABLE OR ATTACHED GARAGE DOOR SERVICE TECHNICIAN: No RADIOLOGY DEPARTMENT: General X-ray: Exam(s) Completed: Chest X-Ray PERIPHERAL IV DATA: Not applicable SIGNED BY: BRODY Neves) September 21, 2023 3:12 PM documented in this encounter [facility] 09-21-2023 Note HNO ID: [id number] Author: VENANCIO RAMOS RT(R) Service: Radiology Author [...] PATIENT PRESENTS WITH AN IMPLANTABLE OR ATTACHED GARAGE DOOR SERVICE TECHNICIAN: No RADIOLOGY DEPARTMENT: General X-ray: Exam(s) Completed: Chest X-Ray PERIPHERAL IV DATA: Not applicable SIGNED BY: RT Pura(R) September 21, 2023 3:12 PM [facility] 09-21-2023 Miscellaneous Notes [facility] paperwork completed and returned to executive administrative assistant for disbursement Off duty 09/12/2023 RTW 10/16/2023 Kandi Price RN, BSN, [facility] Thoracic Nurse Practice Mgr Received [facility] paperwork for patient. Paperwork given to Thoracic NPM for completion. After completion, paperwork is to be faxed to Attn: HR Kyle Martinez. Signed PHI release attached Unknown Dates: 08/06/23 Consult - Referring provider: Ana María Mckeon MD Diagnosis: Myasthenia gravis 09-12-23 Pre-Op 09-13-23 Surgery: ICD-10: G70.00 CPT: 76807 Morenita Bernstein documented in this encounter [facility] 09-21-2023 Miscellaneous Notes We are calling to check on how you are doing since our last phone call. Are you having any medical concerns we can help you with today? -No new medical concerns today. Call Outcome: All Clear All clear and closing statement given. PD RN verified patients name and date of . Xiang Lay RN documented in this encounter [facility] 09-17-2023 Miscellaneous Notes Transition of Care Additional [...] Discharge Specialty: Endocrine Name of Discharging Facility: [facility] Date of Facility Discharge: 09/15/23 Date of Interactive Contact and Name of Apartment House Manager: Spoke with Yaneth on 09/18/23 Medication Review [...] little better each day Following up with [facility] care team Education Provided by ACN to [...] Contact phone number for next two weeks: [phone] (home) Primary service: Thoracic Surgery Patient verbalized understanding CN contact information for Toma Eid RN given. Communication with Home Health Agencies and Other Services Utilized/Needed by the Patient: NA documented in this encounter [facility] 09-17-2023 Telephone encounter Note Transition of Care [...] Discharge Specialty: Endocrine Name of Discharging Facility: [facility] Date of Facility Discharge: 09/15/23 Date of Interactive Contact and Name of Apartment House Manager: Spoke with Yaneth on 09/18/23 Medication Review [...] little better each day Following up with [facility] care team Education Provided by ACN to [...] Contact phone number for next two weeks: [phone] (home) Primary service: Thoracic Surgery Patient verbalized understanding CN contact information for Toma Eid RN given. Communication with Home Health Agencies and Other Services Utilized/Needed by the Patient: NA [facility] Work Phone: 09-17-2023 Miscellaneous Notes 1. Have [...] Barbara Busby RN documented in this encounter [facility] 09-15-2023 Note HNO ID: [id number] Author: CRISELDA SORTO, ? Service: Pharmacy Author Type: Milled Rubber Tender Type: Plan of Care Filed: 09/15/2023 18:16 Note Text: PHARMACY BEDSIDE DELIVERY SERVICE Patient Name: Marnie Arana The marked outpatient medications were Filled at: [facility] and delivered to the patient's bedside [...] Criselda Sorto September 15, 2023 8:33 AM [facility] 09-15-2023 Note HNO ID: [id number] Author: CRISELDA SORTO, ? Service: Pharmacy Author Type: Milled Rubber Tender Type: Plan of Care Filed: 09/15/2023 08:33 Note Text: Insurance investigation completed Patient has active prescription insurance: Yes - Patient's insurance is in-network with [facility] Insurance loaded into [place]: Yes Test claim was completed to verify insurance is active: Successful Any questions, please contact your medication automotive accessory installer. Pager #: [phone] [facility] 09-15-2023 Note HNO ID: [id number] Author: CHARLEY OVIEDO MD Service: Thoracic Surgery Author Type: Resident Type: Progress Notes Filed: 09/15/2023 07:05 Note Text: [facility] THORACIC SURGERY PROGRESS NOTE Marnie Arana [id number] ASSESSMENT AND PLAN: 53 yo F s/p [...] (!) 52 (!) 56 (!) 51 Resp: 16 16 Temp: 36.8 ?C (98.3 ?F) 36.7 ?C [...] Enzymes ABGs SIGNATURE: Charley Oviedo MD PAGER: [phone] [facility] 09-15-2023 Note HNO ID: [id number] Author: NOTE, INTERFACE, ? Service: ? Author Type: ? Type: Progress Notes Filed: 09/15/2023 03:37 Note Text: Epic Scheduled Downtime: 09/15/2023 1:00:00 AM to 09/15/2023 3:24:00 AM [facility] 09-14-2023 Note HNO ID: [id number] Author: PRAVEENA HARVEY RN Service: Care Management Author Type: Registered Nurse Type: Care Mgt Initial Assessment Filed: 09/14/2023 12:49 Note Text: CARE MANAGEMENT: ASSESSMENT AND DISCHARGE PLAN SERVICE DATE: September 14, 2023 SERVICE TIME: 12:46 PM PCP: Ana María Mckeon MD Primary Contact: Extended Emergency Contact Information Primary Emergency Contact: Sumit([facility]) Diony Address: [address] [place] [address] Mobile Relation: Spouse Secondary Emergency Contact: Farrah(1st alt [employer]) [place] Mobile Relation: Father Admission Status: Inpatient Insurance Provider: [employer] PPO Post-Acute Discharge Plan: Per review of chart 53 yr old female form [facility] s/p 09-13-2023 Robotic bilateral thymectomy. Myasthenia Gravis, [...] 14, 2023 TIME: 12:46 PM CONTACT #: [phone] [facility] 09-14-2023 Note HNO ID: [id number] Author: KARIS EDWARDS APRN.CNP Service: Thoracic Surgery Author Type: Nurse Practitioner Type: Progress Notes Filed: 09/14/2023 12:00 Note Text: [facility] THORACIC SURGERY POST-OP PROGRESS NOTE Marnie Cassidy Sumit [id number] PRIMARY SERVICE: Thoracic Surgery - Jasiel Turner [...] vision, symptoms began 05/2023. 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 Controlled with Fentanyl IV DIAGNOSTIC TECHNICIAN, Tylenol 1000 mg q6h, Toradol 15 mg q6h, and oxycodone 5-10 mg q6h. -Continue current regimen and stop IV DIAGNOSTIC TECHNICIAN To Do or to Watch: Continue home [...] Assessment: High risk (more content not included)... [facility] 09-13-2023 Note HNO ID: [id number] Author: KARIS EDWARDS APRN.MOVEMENT ASSEMBLER Service: Thoracic Surgery Author Type: Nurse Practitioner Type: Progress Notes Filed: 09/13/2023 17:22 Note Text: [facility] THORACIC SURGERY POST-OP PROGRESS NOTE Marnie Arana [id number] PRIMARY SERVICE: Thoracic Surgery - Jasiel Turner [...] vision, symptoms began 05/2023. 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 Controlled with Fentanyl IV DIAGNOSTIC TECHNICIAN, Tylenol 1000 mg q6h, Toradol 15 mg [...] subcutaneous heparin Labs and medications reviewed in [facility] SIGNATURE: Karis Edwards APRN.[facility] PAGER: [phone] DATE of SERVICE: September 13, 2023 TIME of SERVICE: 5:15 PM [facility] 09-13-2023 Note HNO ID: [id number] Author: LEILANI SMITH APRN.DEBURRER MACHINE Service: ? Author Type: Nurse Apparel Patternmaker Type: Anesthesia Procedure Notes Filed: 09/13/2023 07:52 Note Text: ANESTHESIOLOGY PROCEDURE NOTE Airway General Information Procedure Start Time/Medication Administration: 09/13/2023 7:27 AM Patient location during procedure: OR Staffing Anesthesiologist: Tyler Temple MD DEBURRER MACHINE: Leilani Smith APRN.DEBURRER MACHINE Performed by: DEBURRER MACHINE Indications and Patient Condition Indications for airway management: anesthesia Preoxygenated: yes anesthesia circuit Method: asleep Cricoid Pressure: Yes Difficult Mask: No Final Airway Details Final airway type: endotracheal airway Final Endotracheal Airway: ETT - double lumen left Cuffed: yes Successful intubation technique: video laryngoscopy Devices used: DxNA Endotracheal tube insertion site: oral Blade size: #4 ETT DL size (fr): 37 Placement verified by: chest auscultation, bronchoscopy and capnometry Cormack-Lehane Classification: grade I - full view of glottis Number of attempts at approach: 1 Airway not difficult SIGNATURE: Leilani Smith APRN.CRNA PATIENT NAME: Marnie Arana DATE: September 13, 2023 TIME: 7:51 AM CSN: [id number] [facility] 09-12-2023 Note HNO ID: [id number] Author: JASIEL TURNER MD Service: ? Author Type: Physician Type: Progress Notes Filed: 09/12/2023 14:50 Note Text: I have read and reviewed the documentation and agree. I wish to add the followingI wish to add the following findings which will be communicated back to the requesting physician. Jasiel Turner MD [facility] STAFF PHYSICIAN NOTE OF PERSONAL INVOLVEMENT IN [...] 2023 TIME OF SERVICE: 2:46 PM ' [facility] 09-12-2023 History of Present illness Narrative I have read and reviewed the documentation and agree. I wish to add the followingI wish to add the following findings which will be communicated back to the requesting physician. Jasiel Turner MD [facility] STAFF PHYSICIAN NOTE OF PERSONAL INVOLVEMENT IN [...] Jasiel Turner MD documented in this encounter [facility] 09-12-2023 History of Present illness Narrative Cardiothoracic [...] COVID-19 Immunization Status Overdue - Covid-19 Vaccine ( season) Overdue since 03/09/2023 12/28/2021 Imm Admin: [...] and consent discussed: yes. Patient / Responsible Constitution Party agrees to proceed: yes Patient / Surrogate agrees to blood products: Yes Instructions Given to Patient: Instructions located in the after visit summary. Patient given verbal and written preop instructions and voices comprehension and compliance. Signature: Qi Hoskins MD Patient Name: Marnie Arana Date: September 12, 2023 Time: 11:32 AM Pager/Contact #: documented in this encounter [facility] 09-12-2023 Note HNO ID: [id number] Author: QI HOSKINS MD Service: ? Author [...] COVID-19 Immunization Status Overdue - Covid-19 Vaccine ( season) Overdue since 03/09/2023 12/28/2021 Imm Admin: [...] once the morni (more content not included)... [facility] 09-12-2023 Note HNO ID: [id number] Author: KAILEE BAGLEY RN Service: ? Author Type: Registered Nurse Type: Progress Notes Filed: 09/12/2023 15:48 Note Text: CBC was not done at preop lab appt. and anaesthesia (Dr.Katherine Gato MD) - ok without CBC. Kailee Bagley RN [facility] 09-12-2023 Note HNO ID: [id number] Author: JASIEL TURNER MD Service: ? Author [...] No additional systems reviewed Jasiel Turner MD [facility] 09-12-2023 History of Present illness Narrative [...] PATIENT PRESENTS WITH AN IMPLANTABLE OR ATTACHED GARAGE DOOR SERVICE TECHNICIAN: No RADIOLOGY DEPARTMENT: General X-ray: Exam(s) Completed: Chest X-Ray PERIPHERAL IV DATA: Not applicable SIGNED BY: BRODY Neves) September 12, 2023 12:11 PM documented in this encounter [facility] 09-12-2023 Note HNO ID: [id number] Author: VENANCIO RAMOS RT(R) Service: Radiology Author [...] PATIENT PRESENTS WITH AN IMPLANTABLE OR ATTACHED GARAGE DOOR SERVICE TECHNICIAN: No RADIOLOGY DEPARTMENT: General X-ray: Exam(s) Completed: Chest X-Ray PERIPHERAL IV DATA: Not applicable SIGNED BY: RT Pura(R) September 12, 2023 12:11 PM [facility] 09-05-2023 History of Present illness Narrative Images from the original note were not included. [address] [place] [address] Subjective: Marnie Arana is a 53 y.o. [...] Problem List Diagnosis Date Noted Myasthenia gravis ([facility]) 06/13/2023 History reviewed. No pertinent past medical [...] for this visit: Wellness examination Myasthenia gravis ([facility]) Plan Outpatient Medications Prior to Visit Medication [...] 5.)Labs not due 6.)Patient to present to [facility] for thymectomy. SO Briones 09/05/23 1530 documented in this encounter [facility] 08-28-2023 Miscellaneous Notes Radiology Service Progress Note [...] PATIENT PRESENTS WITH AN IMPLANTABLE OR ATTACHED GARAGE DOOR SERVICE TECHNICIAN: No ALLERGIES: Reviewed and unchanged CONTRAST ALLERGY: NO. EXAM: MRI - CONTRAST TYPE: GROUP II PERIPHERAL IV DATA: Ambulatory: A peripheral IV was started in the Right with a Angio cath: 24 gauge. RADIOLOGY DEPARTMENT: MR; Exam(s) Completed: Body: Liver (routine) SIGNATURE: Roxanne Grigsby, RT(R), Shobha Huntley, RT(R) PATIENT NAME: Marnie Arana DATE: August 28, 2023 TIME: 10:29 AM documented in this encounter [facility] 08-27-2023 Note HNO ID: [id number] Author: ?, ?, ? Service: ? Author Type: ? Type: Progress Notes Filed: 08/27/2023 15:21 Note Text: Pt is scheduled for US and labs on 09/27/23. [facility] 08-24-2023 Note HNO ID: [id number] Author: KANDI PRICE, RN Service: ? Author Type: Registered Nurse [...] to fax forms to office for completion [facility] 08-24-2023 History of Present illness Narrative [...] office for completion documented in this encounter [facility] 08-17-2023 Note HNO ID: [id number] Author: ROC MARRERO MD Service: ? Author Type: Physician Type: Progress Notes Filed: 08/18/2023 22:09 Note Text: VIRTUAL VISIT PROGRESS NOTE This is a virtual visit using Optim[employer] Zoom Video Visit. It required patient-provider interaction for the medical decision making as documented below. I have communicated my name and active licensure. The patient's identity and physical location were verified at the time of this visit. Either the patient or their legal administrative representative has been informed of the risks [...] were obtained w (more content not included)... [facility] 08-06-2023 Note HNO ID: [id number] Author: JASIEL TURNER MD Service: ? Author Type: Physician Type: Progress Notes Filed: 08/06/2023 14:05 Note Text: [facility] THORACIC SURGERY OUTPATIENT CONSULT NOTE Marnie Arana [id number] Requesting Provider: Dr. Dsouza Thoracic Physician: Jasiel [...] Thymectomy Echo SIGNATURE: Jasiel Turner MD PAGER: [phone] DATE of SERVICE: 08/06/2023 TIME of SERVICE: [...] personally performed by: MD Jasiel Reyes MD [facility] 08-06-2023 Note HNO ID: [id number] Author: EMIL FREEMAN RRT Service: ? Author Type: Registered Resp Therapist Type: Progress Notes Filed: 08/06/2023 07:33 Note Text: PULM FUNCTION SMARTBLOCK: Provider: Jasiel Turner MD Spirometry: 1 DLCO: 1 System: MC5 - [id number] [facility] 07-16-2023 Note HNO ID: [id number] Author: QUINTEN RUIZ MD Service: ? Author Type: Fellow Type: Progress Notes Filed: 07/17/2023 09:20 Note Text: [facility] New Patient Visit Note Consultation [...] to lose weight intentionally. She saw her relay repairer in a few days after the onset [...] by Dr. Claire De Los Santos at [facility] and was diagnosed with myasthenia gravis. Was started on pyridostigmine 30mg TID and prednisone 10mg daily in June 2023. She had a CT scan of her chest completed that showed the presence of a possible thymomatous mass and she was then referred to [facility] for further evaluation. She has tolerated both [...] or HI. NEUR (more content not included)... [facility] 01-19-2021 Note OPERATIVE NOTE OPERATION DATE: [...] be in 10 years for screening. cc:Dr. Adorno. [facility] Signed and Approved by: DR ODELL JOHNSON . 01/21/2021 08:06:00 [facility] 01-13-2021 Note Chief Complaint referral for colonsocopy [...] of colon) plan colonoscopy under anesthesia at [facility], informed consent obtained. Follow-up No qualifying data [...] Recorded SARS-CoV-2 (COVID-19) mRNA-1273 vaccine 09/01/2020 Recorded [facility] Comment on above: Result Comment: Elec tronically Signed By: ALEX CARVER, Odell Good\Date and Time Signed: 01/13/21 10:26 EDT Evaluation note Diagnosis Myasthenia gravis (HCC)- Primary Myasthenia gravis without exacerbation Preoperative testing Preoperative examination, unspecified Pre-procedure lab exam Pre-procedural laboratory examination [facility] Diagnosis Mediastinal mass Swelling, mass, or lump in chest Lesion of liver Other specified disorders of liver Myasthenia gravis (HCC) Myasthenia gravis without exacerbation [facility] Diagnosis Wellness examination- Primary Myasthenia gravis (CMS-HCC) Myasthenia gravis without exacerbation [facility] Diagnosis Encounter for preoperative anesthesiology assessment for thoracic surgery- Primary Myasthenia gravis (HCC) Myasthenia gravis without exacerbation [facility] Diagnosis Myasthenia gravis (HCC)- Primary Myasthenia gravis without exacerbation Benign neoplasm of thymus Myasthenia gravis (HCC) Myasthenia gravis without exacerbation [facility] Diagnosis Myasthenia gravis (HCC) Myasthenia gravis without exacerbation Preoperative testing Preoperative examination, unspecified Pre-procedure lab exam Pre-procedural laboratory examination [facility] Diagnosis Myasthenia gravis (HCC)- Primary Myasthenia gravis without exacerbation Thymoma Benign neoplasm of thymus [facility] Diagnosis Follow-up examination following surgery Follow-up examination, following unspecified surgery [facility] Diagnosis Multiple thyroid nodules Nontoxic multinodular goiter [facility] Diagnosis Thymoma- Primary Benign neoplasm of thymus [facility] Diagnosis Thymoma- Primary Benign neoplasm of thymus [facility] Diagnosis Thymoma- Primary Benign neoplasm of thymus [facility] Diagnosis 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 thymus Myasthenia gravis (HCC) Myasthenia gravis without exacerbation [facility] Diagnosis Myasthenia gravis (HCC) Myasthenia gravis without exacerbation Thymoma Benign neoplasm of thymus [facility] Diagnosis Myasthenia gravis (HCC)- Primary Myasthenia gravis without exacerbation [facility] Diagnosis Thymoma- Primary Benign neoplasm of thymus [facility] Diagnosis Thymoma- Primary Benign neoplasm of thymus [facility] Diagnosis Thymoma- Primary Benign neoplasm of thymus [facility] Diagnosis Myasthenia gravis (HCC) Myasthenia gravis without exacerbation Postoperative pain Other acute postoperative pain Thymoma Benign neoplasm of thymus [facility] Diagnosis Thymoma- Primary Benign neoplasm of thymus [facility] Diagnosis Thymoma- Primary Benign neoplasm of thymus [facility] Diagnosis Myasthenia gravis (HCC)- Primary Myasthenia gravis without exacerbation [facility] Diagnosis Malignant neoplasm of thymus (HCC) Malignant neoplasm of thymus [facility] Diagnosis Well woman exam with routine gynecological exam Routine gynecological examination Breast cancer screening by mammogram Postmenopausal state Asymptomatic postmenopausal status (age-related) (natural) [facility] Diagnosis 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 thymus Thymoma Benign neoplasm of thymus [facility]* Diagnosis Myasthenia gravis (HCC)- Primary Myasthenia gravis without exacerbation [facility] Diagnosis Malignant neoplasm of thymus (HCC) Malignant neoplasm of thymus [facility]* Diagnosis Myasthenia gravis (CMS-HCC)- Primary Myasthenia gravis without exacerbation Thymoma Benign neoplasm of thymus Acute non-recurrent maxillary sinusitis [facility] Attachments The following attachments cannot be sent through Care Everywhere. * Myasthenia gravis (Hungarian) * Yearly Physical for Adults (Hungarian) [facility] SystemInstructionsNot on file documented in [facility] SystemInstructions* Attachments The following attachments cannot be sent through Care Everywhere. * Myasthenia gravis (Hungarian) [facility] in [facility] SystemReason for referral (narrative)* Outpatient Procedure (Routine) - Pending Review Specialty Diagnoses / Procedures Referred By Harriet garcia Referred To [facility] Diagnoses Myasthenia gravis (HCC) Preoperative testing Pre-procedure lab exam Procedures ECHO ECHO TTHRC R-T 2D W/WOM-MODE COMPL SPEC&COLR D Jasiel Turner MD [address] [place] [address] [address] Referral ID Status Reason Start Date Expiration Date Visits Requested Visits Authorized [id number] Pending Review Auto-Generat ed Referral 08/24/2023 08/23/2024 1 1 * Outpatient Procedure (Urgent) - Pending Review Specialty Diagnoses / Procedures Referred By Harriet garcia Referred To Contact [facility] [place] Diagnoses Myasthenia gravis (HCC) Preoperative testing Pre-procedure lab exam Procedures ECG COMPLETE ECG ROUTINE ECG W/LEAST 12 LDS W/I&R Jasiel Turner MD [address] [place] [address] [address] Referral ID Status Reason Start Date Expiration Date Visits Requested Visits Authorized [id number] Pending Review Auto-Generat ed Referral 08/24/2023 08/23/2024 1 1 [facility] N[facility]* Diagnostic Procedure Only (Routine) - Closed Specialty Diagnoses / Procedures Referred By Harriet garcia Referred To Contact [facility] Diagnoses Multiple thyroid nodules Procedures US THYROID/PARATHYROID US SOFT TISSUE HEAD & NECK REAL TIME IMGE Roc Johns MD [address] [place] [address] [place] [address] Referral ID Status Reason Start Date Expiration Date V isits Requested Visits Authorized [id number] Closed Auto-Generate d Referral 08/17/2023 09/15/2024 1 1 [facility] Summary Purpose Family History No Family History Records FoundNo Family History Records FoundNo Family History Records FoundNo Family History Records FoundNo Family History Records FoundNo Family History Records Found Advance Directives No Advanced Directives Records FoundDocuments on File Type Date Recorded Patient Manager Of Training Expl anation Advance Directive(s) 09/12/2023 2:51 PM Documents on File Type Date Recorded Patient Manager Of Training Expl anation Advance Directive(s) 09/12/2023 2:51 PM Reason for Referral Specialty Diagnoses / Procedures Referred By Contac t Referred To Contact MR IMAGING Diagnoses Mediastinal mass Lesion of liver Procedures MRI LIVER WO/W IVCON MRI ABDOMEN W/O & W/CONTRAST MATERIAL Jasiel Turner MD [address] [place] [address] [facility] [place] [address] Referral ID Status Reason Start Date Expiration Date V isits Requested Visits Authorized [id number] Closed Auto-Generate d Referral 07/13/2023 08/11/2024 1 1 Specialty Diagnoses / Procedures Referred By Contac t Referred To Contact CT IMAGING Diagnoses Malignant neoplasm of thymus (HCC) Procedures CT CHEST W IVCON DIAGNOSTIC COMPUTED TOMOGRAPHY THORAX W/CONTRAST Zeferino Desouza MD [address] [place] [address] [place] [address] [facility] [place] [address] Referral ID Status Reason Start Date Expiration Date V isits Requested Visits Authorized [id number] Closed Auto-Generate d Referral 10/11/2023 11/09/2024 1 1 Specialty Diagnoses / Procedures Referred By Contac t Referred To Contact CT IMAGING Diagnoses Malignant neoplasm of thymus (HCC) Procedures CT CHEST W IVCON DIAGNOSTIC COMPUTED TOMOGRAPHY THORAX W/CONTRAST Kandy Vallecillo APRN.MOVEMENT ASSEMBLER [address] [place] [address] [address] [facility] [place] [address] Referral ID Status Reason Start Date Expiration Date Visits Requested Visits Authorized [id number] Authorized Auto-Generat ed Referral 10/29/2023 11/27/2024 1 1 Referral ID Status Reason Start Date Expiration Date Visits Requested Visits Authorized [id number] Pending Review Auto-Generat ed Referral 05/29/2025 1 1 Referral ID Status Reason Start Date Expiration Date V isits Requested Visits Authorized [id number] Closed Auto-Generate d Referral 10/29/2023 11/27/2024 1 1 Additional Source Comments INFORMATION SOURCE (unrecogn ized section and content) DATE CREATED AUTHOR [facility]22/2021 [facility] DATE CREATED AUTHOR AUTHOR'S ORGANIZ ATION 06/29/2021 [facility] DATE CREATED AUTHOR AUTHOR'S ORGANIZ ATION 08/29/2023 [facility] DATE CREATED AUTHOR AUTHOR'S ORGANIZ ATION 04/15/2024 [facility] DATE CREATED AUTHOR AUTHOR'S ORGANIZ ATION 05/18/2024 [facility] DATE CREATED AUTHOR AUTHOR'S ORGANIZ ATION 05/21/2024 [facility] Source Comments (unrecognize d section and content) In the event this informatio n is protected by the Federal Confidentiality of Alcohol and Drug Abuse Patient Records regulations: The Federal rules restrict any use of the information to criminally investigate or prosecute any alcohol or drug abuse patient.[facility] the event this information is protected by the Federal Confidentiality of Alcohol and Drug Abuse Patient Records regulations: The Federal rules restrict any use of the information to criminally investigate or prosecute any alcohol or drug abuse patient.[facility] the event this information is protected by the Federal Confidentiality of Alcohol and Drug Abuse Patient Records regulations: The Federal rules restrict any use of the information to criminally investigate or prosecute any alcohol or drug abuse patient.[facility] the event this information is protected by the Federal Confidentiality of Alcohol and Drug Abuse Patient Records regulations: The Federal rules restrict any use of the information to criminally investigate or prosecute any alcohol or drug abuse patient.[facility] the event this information is protected by the Federal Confidentiality of Alcohol and Drug Abuse Patient Records regulations: The Federal rules restrict any use of the information to criminally investigate or prosecute any alcohol or drug abuse patient.[facility] the event this information is protected by the Federal Confidentiality of Alcohol and Drug Abuse Patient Records regulations: The Federal rules restrict any use of the information to criminally investigate or prosecute any alcohol or drug abuse patient.[facility] the event this information is protected by the Federal Confidentiality of Alcohol and Drug Abuse Patient Records regulations: The Federal rules restrict any use of the information to criminally investigate or prosecute any alcohol or drug abuse patient.[facility] the event this information is protected by the Federal Confidentiality of Alcohol and Drug Abuse Patient Records regulations: The Federal rules restrict any use of the information to criminally investigate or prosecute any alcohol or drug abuse patient.[facility] the event this information is protected by the Federal Confidentiality of Alcohol and Drug Abuse Patient Records regulations: The Federal rules restrict any use of the information to criminally investigate or prosecute any alcohol or drug abuse patient.[facility] the event this information is protected by the Federal Confidentiality of Alcohol and Drug Abuse Patient Records regulations: The Federal rules restrict any use of the information to criminally investigate or prosecute any alcohol or drug abuse patient.[facility] the event this information is protected by the Federal Confidentiality of Alcohol and Drug Abuse Patient Records regulations: The Federal rules restrict any use of the information to criminally investigate or prosecute any alcohol or drug abuse patient.[facility] the event this information is protected by the Federal Confidentiality of Alcohol and Drug Abuse Patient Records regulations: The Federal rules restrict any use of the information to criminally investigate or prosecute any alcohol or drug abuse patient.[facility] the event this information is protected by the Federal Confidentiality of Alcohol and Drug Abuse Patient Records regulations: The Federal rules restrict any use of the information to criminally investigate or prosecute any alcohol or drug abuse patient.[facility] the event this information is protected by the Federal Confidentiality of Alcohol and Drug Abuse Patient Records regulations: The Federal rules restrict any use of the information to criminally investigate or prosecute any alcohol or drug abuse patient.[facility] the event this information is protected by the Federal Confidentiality of Alcohol and Drug Abuse Patient Records regulations: The Federal rules restrict any use of the information to criminally investigate or prosecute any alcohol or drug abuse patient.[facility] the event this information is protected by the Federal Confidentiality of Alcohol and Drug Abuse Patient Records regulations: The Federal rules restrict any use of the information to criminally investigate or prosecute any alcohol or drug abuse patient.[facility] the event this information is protected by the Federal Confidentiality of Alcohol and Drug Abuse Patient Records regulations: The Federal rules restrict any use of the information to criminally investigate or prosecute any alcohol or drug abuse patient.[facility] the event this information is protected by the Federal Confidentiality of Alcohol and Drug Abuse Patient Records regulations: The Federal rules restrict any use of the information to criminally investigate or prosecute any alcohol or drug abuse patient.[facility] the event this information is protected by the Federal Confidentiality of Alcohol and Drug Abuse Patient Records regulations: The Federal rules restrict any use of the information to criminally investigate or prosecute any alcohol or drug abuse patient.[facility] the event this information is protected by the Federal Confidentiality of Alcohol and Drug Abuse Patient Records regulations: The Federal rules restrict any use of the information to criminally investigate or prosecute any alcohol or drug abuse patient.[facility] the event this information is protected by the Federal Confidentiality of Alcohol and Drug Abuse Patient Records regulations: The Federal rules restrict any use of the information to criminally investigate or prosecute any alcohol or drug abuse patient.[facility] the event this information is protected by the Federal Confidentiality of Alcohol and Drug Abuse Patient Records regulations: The Federal rules restrict any use of the information to criminally investigate or prosecute any alcohol or drug abuse patient.[facility] the event this information is protected by the Federal Confidentiality of Alcohol and Drug Abuse Patient Records regulations: The Federal rules restrict any use of the information to criminally investigate or prosecute any alcohol or drug abuse patient.[facility] the event this information is protected by the Federal Confidentiality of Alcohol and Drug Abuse Patient Records regulations: The Federal rules restrict any use of the information to criminally investigate or prosecute any alcohol or drug abuse patient.[facility] Columbus[facility] the event this information is protected by the Federal Confidentiality of Alcohol and Drug Abuse Patient Records regulations: The Federal rules restrict any use of the information to criminally investigate or prosecute any alcohol or drug abuse patient.[facility] Columbus[facility] the event this information is protected by the Federal Confidentiality of Alcohol and Drug Abuse Patient Records regulations: The Federal rules restrict any use of the information to criminally investigate or prosecute any alcohol or drug abuse patient.[facility] ColumbusIn the event this information is protected by the Federal Confidentiality of Alcohol and Drug Abuse Patient Records regulations: The Federal rules restrict any use of the information to criminally investigate or prosecute any alcohol or drug abuse patient.[facility] ColumbusIn the event this information is protected by the Federal Confidentiality of Alcohol and Drug Abuse Patient Records regulations: The Federal rules restrict any use of the information to criminally investigate or prosecute any alcohol or drug abuse patient.[facility] ColumbusIn the event this information is protected by the Federal Confidentiality of Alcohol and Drug Abuse Patient Records regulations: The Federal rules restrict any use of the information to criminally investigate or prosecute any alcohol or drug abuse patient.[facility] ColumbusIn the event this information is protected by the Federal Confidentiality of Alcohol and Drug Abuse Patient Records regulations: The Federal rules restrict any use of the information to criminally investigate or prosecute any alcohol or drug abuse patient.[facility] ColumbusIn the event this information is protected by the Federal Confidentiality of Alcohol and Drug Abuse Patient Records regulations: The Federal rules restrict any use of the information to criminally investigate or prosecute any alcohol or drug abuse patient.[facility] ColumbusIn the event this information is protected by the Federal Confidentiality of Alcohol and Drug Abuse Patient Records regulations: The Federal rules restrict any use of the information to criminally investigate or prosecute any alcohol or drug abuse patient.[facility] ColumbusIn the event this information is protected by the Federal Confidentiality of Alcohol and Drug Abuse Patient Records regulations: The Federal rules restrict any use of the information to criminally investigate or prosecute any alcohol or drug abuse patient.[facility] ColumbusIn the event this information is protected by the Federal Confidentiality of Alcohol and Drug Abuse Patient Records regulations: The Federal rules restrict any use of the information to criminally investigate or prosecute any alcohol or drug abuse patient.[facility] ColumbusIn the event this information is protected by the Federal Confidentiality of Alcohol and Drug Abuse Patient Records regulations: The Federal rules restrict any use of the information to criminally investigate or prosecute any alcohol or drug abuse patient.[facility] ColumbusIn the event this information is protected by the Federal Confidentiality of Alcohol and Drug Abuse Patient Records regulations: The Federal rules restrict any use of the information to criminally investigate or prosecute any alcohol or drug abuse patient.[facility] ColumbusIn the event this information is protected by the Federal Confidentiality of Alcohol and Drug Abuse Patient Records regulations: The Federal rules restrict any use of the information to criminally investigate or prosecute any alcohol or drug abuse patient.[facility] Reason for Visit (unrecogniz ed section and content) Reason Comments Schedule Surgery Robotic b/l thymecto my Specialty Diagnoses / Procedures Referred By Harriet t Referred To Contact MR IMAGING Diagnoses Mediastinal mass Lesion of liver Procedures MRI LIVER WO/W IVCON MRI ABDOMEN W/O & W/CONTRAST MATERIAL Jasiel Turner MD [address] [place] [address] Mr Imaging [facility]95 Referral ID Status Reason Start Date Expiration Date V isits Requested Visits Authorized [id number] Closed Auto-Generate d Referral 07/13/2023 08/11/2024 1 [...] Oncology Diagnoses Thymoma Procedures RAD/ONC CONSULT OFFICE/OUTPATIENT [facility] 60 MINUTES Kandy Vallecillo, PROJECT ADMINISTRATOR.MOVEMENT ASSEMBLER [address] [place] [address] Referral ID Status Reason Start Date Expiration Date V isits Requested Visits Authorized [id number] Closed PCP Requested Referral 10/05/2023 10/04/2024 1 [...] 27 FX plus sim Zeferino Desouza MD [address] [place] [address] [place] [address] Zeferino Desouza MD [address] [place] [address] [place] [address] Referral ID Status Reason Start Date Expiration Date Visits Re quested Visits Authorized [id number] Closed 09/28/2023 01/11/2024 [address] Specialty Diagnoses / Procedures Referred By Contac t Referred To Contact CT IMAGING Diagnoses Malignant neoplasm of thymus (HCC) Procedures CT CHEST W IVCON DIAGNOSTIC COMPUTED TOMOGRAPHY THORAX W/CONTRAST Zeferino Desouza MD [address] [place] [address] [place] [address] Referral ID Status Reason Start Date Expiration Date V isits Requested Visits Authorized [id number] Closed Auto-Generate d Referral 10/11/2023 11/09/2024 1 1 Reason Comments Well Women Visit Reason Comments Established Patient Follow Up Specialty Diagnoses / Procedures Referred By Harriet garcia Referred To Contact CT IMAGING Diagnoses Malignant neoplasm of thymus (HCC) Procedures CT CHEST W IVCON DIAGNOSTIC COMPUTED TOMOGRAPHY THORAX W/CONTRAST Kandy Vallecillo, PROJECT ADMINISTRATOR.MOVEMENT ASSEMBLER [address] [place] [address] Ct Imaging [place] [address] Referral ID Status Reason Start Date Expiration Date V isits Requested Visits Authorized [id number] Closed Auto-Generate d Referral 10/29/2023 11/27/2024 1 1 Reason Comments Nasal Congestion Care Teams (unrecognized sec tion and content) Manager Integration Relationship Specialty Start Date End Date Claire De Los Santos DO [address] [facility] [address] [place] [id number] PCP - General Neurology 07/11/23 Manager Integration Relationship Specialty Start Date End Date Ana María Mckeon [address] [place] [address] PCP - General Family Medicine 08/28/23 Manager Integration Relationship Specialty Start Date End Date Cristian Teixeira, PROJECT ADMINISTRATOR-MOVEMENT ASSEMBLER [address] [place] [address] PCP - General Family Medicine 06/13/18 Manager Integration Relationship Specialty Start Date End Date Ana María Mckeon [address] [place] [address] PCP - General Family Medicine 08/28/23 Ana María Mckeon [address] [place] [address] Referring Family Medicine 08/31/23 Manager Integration Relationship Specialty Start Date End Date de Ana María Sims [address] [place] [address] PCP - General Family Medicine 08/28/23 de Ana María Sims [address] [place] [address] Referring Family Medicine 08/31/23 Manager Integration Relationship Specialty Start Date End Date de Ana María Sims [address] [place] [address] PCP - General Family Medicine 08/28/23 wi Ana María Sims [address] [place] [address] Referring Family Medicine 08/31/23 Manager Integration Relationship Specialty Start Date End Date wi Ana María Sims [address] [place] [address] PCP - General Family Medicine 08/28/23 wi Ana María Sims [address] [place] [address] Referring Family Medicine 08/31/23 Manager Integration Relationship Specialty Start Date End Date Cristian Teixeira APRN-MOVEMENT ASSEMBLER [address] [place] [address] PCP - General Family Medicine 06/13/18 Manager Integration Relationship Specialty Start Date End Date de Ana María Sims [address] [place] [address] PCP - General Family Medicine 08/28/23 wi Ana María Sims [address] [place] [address] Referring Family Medicine 08/31/23 Manager Integration Relationship Specialty Start Date End Date de [facility], Ana María Pepper [address] [place] [address] PCP - General Family Medicine 08/28/23 de Yaneth, Ana María Pepper [address] [place] [address] Referring Family Medicine 08/31/23 Manager Integration Relationship Specialty Start Date End Date de [facility], Ana María Pepper [address] [place] [address] PCP - General Family Medicine 08/28/23 wi Yaneth, Ana María Pepper [address] [place] [address] Referring Family Medicine 08/31/23 Manager Integration Relationship Specialty Start Date End Date de [facility], Ana María Pepper [address] [place] [address] PCP - General Family Medicine 08/28/23 de Yaneth, Ana María Pepper [address] [place] [address] Referring Family Medicine 08/31/23 Manager Integration Relationship Specialty Start Date End Date de Yaneth, Ana María Pepper [address] [place] [address] PCP - General Family Medicine 08/28/23 wi Yaneth, Ana María Pepper [address] [place] [address] Referring Family Medicine 08/31/23 Manager Integration Relationship Specialty Start Date End Date de [facility], Ana María Pepper [address] [place] [address] PCP - General Family Medicine 08/28/23 de Ana María Sims [address] [place] [address] Referring Family Medicine 08/31/23 Manager Integration Relationship Specialty Start Date End Date de [facility], Ana María Pepper [address] [place] [address] PCP - General Family Medicine 08/28/23 wi Ana María Sims [address] [place] [address] Referring Family Medicine 08/31/23 Manager Integration Relationship Specialty Start Date End Date de Yaneth, Ana María Pepper [address] [place] [address] PCP - General Family Medicine 08/28/23 wi Ana María Sims [address] [place] [address] Referring Family Medicine 08/31/23 Manager Integration Relationship Specialty Start Date End Date de Ana María Sims [address] [place] [address] PCP - General Family Medicine 08/28/23 wi Ana María Sims [address] [place] [address] Referring Family Medicine 08/31/23 Manager Integration Relationship Specialty Start Date End Date de Yaneth, Ana María Pepper [address] [place] [address] PCP - General Family Medicine 08/28/23 de Ana María Sims [address] [place] [address] Referring Family Medicine 08/31/23 Manager Integration Relationship Specialty Start Date End Date de Yaneth, Ana María Pepper [address] [place] [address] PCP - General Family Medicine 08/28/23 de Ana María Sims [address] [place] [address] Referring Family Medicine 08/31/23 Manager Integration Relationship Specialty Start Date End Date de Yaneth, Ana María Pepper [address] [place] [address] PCP - General Family Medicine 08/28/23 wi Ana María Sims [address] [place] [address] Referring Family Medicine 08/31/23 Manager Integration Relationship Specialty Start Date End Date de Ana María Sims [address] [place] [address] PCP - General Family Medicine 08/28/23 wi Ana María Sims [address] [place] [address] Referring Family Medicine 08/31/23 Manager Integration Relationship Specialty Start Date End Date de Ana María Sims [address] [place] [address] PCP - General Family Medicine 08/28/23 wi Ana María Sims [address] [place] [address] Referring Family Medicine 08/31/23 Manager Integration Relationship Specialty Start Date End Date de Yaneth, Ana María Pepper [address] [place] [address] PCP - General Family Medicine 08/28/23 de Ana María Sims [address] [place] [address] Referring Family Medicine 08/31/23 Manager Integration Relationship Specialty Start Date End Date de Yaneth, Ana María Pepper [address] [place] [address] PCP - General Family Medicine 08/28/23 wi Yaneth, Ana María Pepper [address] [place] [address] Referring Family Medicine 08/31/23 Manager Integration Relationship Specialty Start Date End Date de Yaneth, Ana María Pepper [address] [place] [address] PCP - General Family Medicine 08/28/23 wi Ana María Sims [address] [place] [address] Referring Family Medicine 08/31/23 Manager Integration Relationship Specialty Start Date End Date de Yaneth, Ana María Pepper [address] [place] [address] PCP - General Family Medicine 08/28/23 wi Ana María Sims [address] [place] [address] Referring Family Medicine 08/31/23 Manager Integration Relationship Specialty Start Date End Date de Yaneth, Ana María Pepper [address] [place] [address] PCP - General Family Medicine 08/28/23 Ana María Mckeon [address] [facility] [place] [address] Referring Family Medicine 08/31/23 Manager Integration Relationship Specialty Start Date End Date Ana María Adorno MD [address] [place] [address] PCP - General Family Medicine 04/11/23 Tiffanie Moreno PA [address] [place] [address] [place] [address] PCP - Medical [place] [employer] 07/09/21 07/08/99 Manager Integration Relationship Specialty Start Date End Date Ana María Adorno MD [address] [place] [address] PCP - General Family Medicine 04/11/23 Tiffanie Moreno PA [address] [place] [address] [place] [id number] PCP - Medical [place] [employer] 07/09/21 07/08/99 Manager Integration Relationship Specialty Start Date End Date Ana María Adorno MD [address] [place] [address] PCP - General Family Medicine 04/11/23 Tiffanie Moreno PA [address] [place] [address] [place] [address] PCP - Medical [place] [employer] 07/09/21 07/08/99 Manager Integration Relationship Specialty Start Date End Date Ana María Mckeon [address] [place] [address] PCP - General Family Medicine 08/28/23 de Ana María Sims [address] [place] [address] Referring Family Medicine 08/31/23 Manager Integration Relationship Specialty Start Date End Date Ana María Mckeon [address] [place] [address] PCP - General Family Medicine 08/28/23 Ana María Mckeon [address] [place] [address] Referring Family Medicine 08/31/23 Manager Integration Relationship Specialty Start Date End Date Cristian Teixeira APRN-ISABELL [address] [place] [address] PCP - General Family Medicine 06/13/18 FOR RECORDS PERTAINING TO PATIENTS WHO ARE [...] BE BASED ON THE PRIMARY CLINICAL RECORDS. [facility] [employer] [facility]. provides no warranty or guarantee of the accuracy or completeness of information in this document.
== END 2024-06-02 06:59 | disposition home or self-care (01) ==
LOC: MAMMO 06:59
PROVIDERS: Visit Provider Physician Assistant
DX: Z12.31 Encounter for screening mammogram for malignant neoplasm of breast (principal); Z80.7 Family history of other malignant neoplasms of lymphoid, hematopoietic and related tissues; Z80.8 Family history of malignant neoplasm of other organs or systems
CPT/HCPCS: 77063; 77067

== ENCOUNTER 2025-04-20 12:40 | Outpatient (REF) | payer OTHER, SELFPAY ==
--- OUTSIDE RECORDS SUMMARY | 2025-04-20 09:00 | XMS_ITS | Encounter Summary ---
Author Organization [facility] Address [address] [place] [address] Care Team Providers Care Sample Case Porter Name Role Phone Maida Teixeira NP Unavailable [phone] Reason for Visit * Reason Comments Well Women Visit Encounter Details Date Type Department Care Team (Late st Contact Info) Description 04/20/2025 9:00 AM EDT Office Visit [facility] [address] [facility] [place] [address] Tiffanie Moreno PA [address] [facility] [address] [place], [facility]11 Well woman exam with routine gynecological exam; Encounter for screening mammogram for malignant neoplasm of breast; Postmenopausal state Social History Tobacco Use Types Packs/Day Years Used Date Smoking Tobacco: Never Smokeless Tobacco: Never Alcohol Use Standard Drinks/Week Comments Yes 0 (1 standard drink = 0.6 oz pur e alcohol) Caffeien intake on occasion AUDIT-C Answer Date Recorded Q1: How often do you have a drink containing alc ohol? Monthly or less 01/20/2024 Average Number of Drinks Not on file 024 Q3: How often do you have si x or more drinks on one occasion? Never 01/20/2024 Comments No Sex and Gender Information Value Date Recorded Sex Assigned at Female 01/02/2023 7:08 PM EDT Legal Sex Female 9:28 PM EDT Gender Identity Female 01/02/2023 7:08 PM EDT Sexual Orientation Not on file documented as of this encounter Last Filed Vital Signs Vital Sign Reading Time Taken Comments Blood Pressure 136/84 04/20/2025 9:11 AM EDT Pulse - - Temperature - - Respiratory Rate - - Oxygen Saturation - - Inhaled Oxygen Concentration - - Weight 100 kg (221 lb 8 oz) 04/20/2025 9:11 AM E DT Height - - Body Mass Index 38.02 02/25/2025 8:35 AM EDT documented in this encounter Progress Notes * JACQUES Gomez - 04/20/2025 9:00 AM EDT Reason for Appointment: Patient ID: Yaneth Arana is a 54 y.o. female who presents for Well Women Visit Patient presents today for Annual Exam. MEDICATIONS Current Outpatient Medications Medication Instructions ibuprofen 800 mg, Oral, Every 8 hours ALLERGIES No Known Allergies PROBLEMS Active Ambulatory Problems Diagnosis Date Noted Vision loss 01/20/2024 Myasthenia gravis (HCC) 01/20/2024 Thymoma 01/20/2024 Thyroid nodule 01/20/2024 Liver lesion 01/20/2024 Resolved Ambulatory Problems Diagnosis Date Noted No Resolved Ambulatory Problems Past Medical History: Diagnosis Date Female infertility H/O myasthenia gravis HISTORY PAST MEDICAL HISTORY SOCIAL HISTORY Past Medical History: Diagnosis Date Female infertility H/O myasthenia gravis Myasthenia gravis (HCC) 06/2023 Social History Tobacco Use Smoking status: Never Smokeless tobacco: Never Substance Use Topics Alcohol use: Yes Comment: Caffeien intake on occasion Drug use: Never FAMILY HISTORY Family History Problem Relation Name Age of Onset Cancer Mother Karly Yan Diabetes Father Roscoe Yan SURGICAL HISTORY Past Surgical History: Procedure Laterality Date SECTION, LOW TRANSVERSE 09/22/2004 GANGLION CYST EXCISION Left 1997 wrist - [...] appearance. She is well-developed. Genitourinary: Vulva normal. Right Adnexa: not tender and no mass present. Left Adnexa: not tender and no mass present. No cervical discharge. Breasts: Breasts are soft. Right: Normal. Left: Normal. HENT: Head: Normocephalic. Nose: Nose normal. Mouth/Throat: Mouth: Mucous membranes are moist. Cardiovascular: Rate and Rhythm: Normal rate and regular rhythm. Pulmonary: Effort: Pulmonary effort is normal. Breath sounds: Normal breath sounds. Abdominal: General: Bowel sounds are normal. There [...] nursing note reviewed. Exam conducted with a compounding pharmacy technician present. Vitals: Estimated body mass index is 38.02 kg/m?? as calculated from the following: Height as of 02/25/25: 5' 4 . Weight as of this encounter: 221 lb 8 oz. BP: 136/84 No LMP recorded. Patient has had a hysterectomy. ASSESSMENT & PLAN ICD-10-CM 1. Well woman exam with routine gynecological exam Z01.419 THIN PREP TIS PAP AND HR HPV DNA 2. Encounter for screening mammogram for malignant neoplasm of breast Z12.31 Bilateral screening mammogram Bilateral screening mammogram 3. Postmenopausal state Z78.0 DEXA bone density Annual Exam: Patient presents today for an annual exam. Patient states she is doing well and has no complaints. Pap was obtained without difficulty. Orders Placed This Encounter Procedures Bilateral screening mammogram DEXA bone density Follow Up: Patient is to return in one year for annual unless needed otherwise. Documented by Trinity Dias MA on behalf of: JACQUES Gomez documented in this encounter Plan of Treatment Upcoming Encounters Date Type Department Care Team (Late st Contact Info) Description 04/26/2026 9:00 AM EDT Procedure Visit [facility] [address] [place] [address] [place] [address] Tiffanie Moreno PA [address] [place] [address] [place] [address] Scheduled Orders Name Type Priority Associated Diagnoses Orde r Schedule Bilateral screening mammogram Imaging Routine Encounter for screening mammogram for malignant neoplasm of breast Expected: 04/20/2025, Expires: 06/20/2026 DEXA bone density Imaging Routine Postmenopausal state Expected: 04/20/2025 (Approximate), Expires: 04/20/2026 THIN PREP TIS PAP AND HR HPV DNA Pathology and Cytology Routine Well woman exam with routine gynecological exam Ordered: 04/20/2025 documented as of this encounter Visit Diagnoses Diagnosis Well woman exam with routine gynecological exam Routine gynecological examination Encounter for screening mammogram for malignant neoplasm of breast Postmenopausal state Asymptomatic postmenopausal status (age-related) (natural) documented in this encounter Care Teams Sample Case Porter Relationship Specialty Start Date End Date Maida Teixeira NP [address] [place] [address] Primary Care Provider Family Medicine 02/12/25 documented as of this encounter
--- OUTSIDE RECORDS SUMMARY | 2025-04-20 12:44 | XMS_ITS | Encounter Summary ---
Author Organization [facility] Address [address] [place] [address] Care Team Providers Care Medical Psychotherapist Name Role Phone Cipriano Adorno MD Primary Care Provider [phone] Tiffanie Moreno Unavailable Maida Teixeira NP Unavailable [phone] Encounter Details Date Type Department Care Team (Late Contact Info) Description 04/10/2023 Abstract [facility] [address] [facility] [place] [phone] Tiffanie Moreno PA [address] [facility] [address] [place], [facility]11 Social History Tobacco Use Types Packs/Day Years Used Date Smoking Tobacco: Never Tobacco Cessation:Counseling Given: Not Answered Alcohol Use Standard Drinks/Week Comments Never 0 (1 standard drink = 0.6 oz pur e alcohol) Comments Unknown Sex and Gender Information Value Date Recorded Sex Assigned at Female 01/02/2023 7:08 PM EDT Legal Sex Female 9:28 PM EDT Gender Identity Female 01/02/2023 7:08 PM EDT Sexual Orientation Not on file COVID-19 Exposure Response Date Recorded In the last 10 days, have yo u been in contact with someone who was confirmed or suspected to have Coronavirus/COVID-19? No / Unsure 04/06/2023 8:07 AM EDT documented as of this encounter Plan of Treatment Upcoming Encounters Date Type Department Care Team (Late Contact Info) Description 04/26/2026 9:00 AM EDT Procedure Visit [facility] [address] [facility] [place] [phone] Tiffanie Moreno PA [address] [facility] [place] [address] documented as of this encounter Visit Diagnoses Not on filedocumented in this encounter Care Teams Medical Psychotherapist Relationship Specialty Start Date End Date Cipriano Adorno MD PCP - General Family Medicine 04/11/23 02/11/25 Tiffanie Moreno PA [address] [facility] [place] [address] PCP - Medical [place] [employer] 07/09/21 07/15/24 Maida Teixeira NP [address] [place] [address] Primary Care Provider Family Medicine 02/12/25 documented as of this encounter
--- OUTSIDE RECORDS SUMMARY | 2025-04-20 12:44 | XMS_ITS | Encounter Summary ---
Author Organization [facility] [employer] Sys tem Address [facility][id number] [address] [place] [address] Care Team Providers Care Sailing Officer Name Role Phone Maida Teixeira RN FAMILY PRACTICE-BEREAVEMENT COORDINATOR Primary Care Provide r Encounter Details Date Type Department Care Team (Late st Contact Info) Description 09/07/2023 Orders Only [facility] [address] [facility] [facility] [place] [phone] External, Scanning Provider Social History Tobacco Use Types Packs/Day Years Used Date Smoking Tobacco: Never Smokeless Tobacco: Never Alcohol Use Standard Drinks/Week Comments No 0 (1 standard drink = 0.6 oz pur e alcohol) Overall Financial Resource Strain (CARDIA) Answe r Date Recorded How hard is it for you to pa y for the very basics like food, housing, medical care, and heating? Not hard at all 06/05/2023 PHQ-2 Answer Date Recorded Total Score 0 02/04/2020 PRAPARE - Transportation Answer Date Re corded Lack of Transportation (Medical) Not on file 06/05/2023 In the past 12 months, has l ack of transportation kept you from meetings, work, or from getting things needed for daily living? No 06/05/2023 Housing Instability Answer Date Recorde d Are you worried or concerned that in the next two months you may not have stable housing that you own, rent or stay in as a part of a household? No 06/05/2023 Childcare Answer Date Recorded Childcare Unknown 12/16/2018 Employment Answer Date Recorded Employment Unknown 12/16/2018 Hunger Screening Answer Date Recorded Within the past 12 months we worried whether our food would run out before we got money to buy more. Never True 06/05/2023 Within the past 12 months th e food we bought just didn't last and we didn't have money to get more. Never True 06/05/2023 Purpose - Life Answer Date Recorded Purpose and direction in life Unknown Comments No Sex and Gender Information Value Date Recorded Sex Assigned at Not on file Legal Sex Female 11:59 AM EDT Gender Identity Not on file Sexual Orientation Not on file documented as of this encounter Plan of Treatment Upcoming Encounters Date Type Department Care Team (Late st Contact Info) Description 09/21/2025 9:00 AM EDT Office Visit [facility] [address] [place] [phone] Maida Teixeira APRN-CNP [address] [place] [address] documented as of this encounter Procedures Procedure Name Priority Date/Time Associated Diagnosis Comments HM MAMMOGRAPHY Routine 05/30/2023 11:01 AM EST HM COLONOSCOPY Routine 01/19/2021 11:02 AM EDT documented in this encounter Results * HM MAMMOGRAPHY (05/30/2023 11:01 AM EST) Anatomical Region Laterality Modality Other us Scanning Provider External HEALTH MAINTENANCE Fi nal Result * HM COLONOSCOPY (01/19/2021 11:02 AM EDT) us Scanning Provider External HEALTH MAINTENANCE Fi nal Result MANUALLY TRANSCRIBED RESULTS documented in this encounter Visit Diagnoses Not on filedocumented in this encounter Additional Health Concerns Assessment Noted Time PHQ-9 Depression Total Score: 0 02/04/20 20 4:00 PM EDT A Body Mass Index follow-up plan has been documented for the patient 02/04/2020 4:50 PM EDT documented as of this encounter Care Teams Sailing Officer Relationship Specialty Start Date End Date Madia Teixeira APRN-BEREAVEMENT COORDINATOR [address] [place] [address] PCP - General Family Medicine 06/13/18 documented as of this encounter
--- OUTSIDE RECORDS SUMMARY | 2025-04-20 12:44 | XMS_ITS | Encounter Summary ---
Author Organization [facility] [employer] Sys tem Address [id number] [address] [place] [address] Care Team Providers Care Rolling Attendant Name Role Phone Maida Teixeira RIDE MECHANIC-FISH BAILER Primary Care Provide r Encounter Details Date Type Department Care Team (Late st Contact Info) Description 06/07/2023 Orders Only [facility] [address] [facility] [place] [phone] External, Scanning Provider Social History Tobacco Use [...] Office Visit [facility] [address] [place] [phone] Maida Teixeira, RIDE MECHANIC-FISH BAILER [address] [place] [address] documented as of this encounter Procedures Procedure Name Priority Date/Time Associated Diagnosis Comments HEMOGLOBIN A1C Routine 02/21/2023 2:57 PM EDT LIPID PROFILE Routine 02/21/2023 2:57 PM EDT documented in this encounter Results * Lipid profile (02/21/2023 2:57 PM EDT) External Cholesterol 212 MANUALLY TRANSCRIBED RESULTS External Cholesterol:Hdl 5.3 MANUALLY TRANSCRIBED RESULTS External Hdl Cholesterol 40 MANUALLY TRANSCRIBED RESULTS External Ldl (Calc) 140 MANUALLY TRANSCRIBED RESULTS External Triglycerides 181 MANUALLY TRANSCRIBED RESULTS us Scanning Provider External LAB BLOOD ORDERABLES Edited Result - Final MANUALLY TRANSCRIBED RESULTS * Hemoglobin A1c (02/21/2023 2:57 PM EDT) External Hemoglobin A1C 5.6 % MANUALLY TRANSCRIBED RESULTS us Scanning Provider External LAB BLOOD ORDERABLES Edited Result - Final MANUALLY TRANSCRIBED RESULTS documented in this encounter Visit Diagnoses Not on filedocumented in this encounter Additional Health Concerns Assessment Noted Time PHQ-9 Depression Total Score: 0 02/04/20 20 4:00 PM EDT A Body Mass Index follow-up plan has been documented for the patient 02/04/2020 4:50 PM EDT documented as of this encounter Care Teams Rolling Attendant Relationship Specialty Start Date End Date Maida Teixeira APRN-ISABELL [address] [place] [address] PCP - General Family Medicine 06/13/18 documented as of this encounter
--- OUTSIDE RECORDS SUMMARY | 2025-04-20 12:44 | XMS_ITS | Encounter Summary ---
Author Organization [facility] Address [address] [place] [address] Care Team Providers Care Route Salesman And Driver Name Role Phone Cipriano Morfin Primary Care Provider [phone] Cipriano Morfin Unavailable [phone] Source Comments In the event this information is protected by the Federal Confidentiality of Alcohol and Drug AbusePatient Records regulations: The Federal rules restrict any use of the information to criminally investigate or prosecute any alcohol or drug abuse patient.[facility] Encounter Details Date Type Department Care Team (Late st Contact Info) Description 10/22/2023 Get Medical Advice Radiation Oncology [address] [place] [address] Zeferino Patel MD [address] [place] [address] Pathology Report Social History Tobacco Use Types Packs/Day Years Used Date Smoking Tobacco: Never Passive Smoke Exposure: Never Smokeless Tobacco: Never Alcohol Use Standard Drinks/Week Comments Yes 0 (1 standard drink = 0.6 oz pur e alcohol) Rarely PHQ-2 Answer Date Recorded PHQ-2 score 0 10/11/2023 Area Deprivation Index Answer Date Roberto rded National Score (1-100), lower number is lower ri sk 65 07/16/2023 State Score (1-10), lower number is lower risk 5 07/16/2023 Data from: https://www.neighborhoodatlas.medicine.[facility]/. 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 Answer Date of Assessment Author No 09/15/2023 10:28 AM Lisa Benito RN * Are you blind or do you have serious difficulty seeing, even when wearing glasses? Answer Date of Assessment Author No 09/15/2023 10:28 AM Lisa Benito RN * Do you have serious difficulty walking or climbing stairs? Answer Date of Assessment Author No 09/15/2023 10:28 AM Lisa Benito RN * Do you have difficulty dressing or bathing? Answer Date of Assessment Author No 09/15/2023 10:28 AM Lisa Benito RN * Because of a physical, mental, or emotional condition, do you have difficulty doing errands alone such as visiting a doctor's office or shopping? Answer Date of Assessment Author No 09/15/2023 10:28 AM Lisa Benito RN documented as of this encounter Mental Status * Because of a physical, mental, or emotional condition, do you have serious difficulty concentrating, remembering, or making decisions? Answer Entry Date Author No 09/15/2023 10:28 AM Lisa Benito RN documented in this encounter Miscellaneous Notes * Telephone Encounter - Zeferino Patel MD - 10/22/2023 6:35 PM EDT Called the patient and addressed her concerns/questions. Thanks! Zeferino documented in this encounter Plan of Treatment Upcoming Encounters Date Type Department Care Team (Late st Contact Info) Description 06/01/2025 2:00 PM EST Appointment Radiology [address] [address] CCT 06/01/2025 3:00 PM EST Office Visit Thoracic Clinic [address] [place] [address] Kandy Vallecillo, PEDIATRIC ONCOLOGY NURSE.RISK REDUCTION COUNSELOR [address] [place] [address] Malignant neoplasm of thymus (HCC) 06/01/2025 4:00 PM EST Office Visit Neurology [address] [place] [address] Quinten Lester MD [address] [place] [address] 6 month follow up 11/13/2025 10:00 AM EDT Office Visit Radiation Oncology [address] [place] [address] Zeferino Patel MD [address] [place] [address] 2 year follow up documented as of this encounter Visit Diagnoses Not on filedocumented in this encounter Care Teams Route Salesman And Driver Relationship Specialty Start Date End Date Cipriano Morfin [address] [place] [address] PCP - General Family Medicine 08/28/23 Cipriano Morfin [address] [place] [address] Referring Family Medicine 08/31/23 documented as of this encounter
--- OUTSIDE RECORDS SUMMARY | 2025-04-20 12:44 | XMS_ITS | Encounter Summary ---
Author Organization [facility] Address [address] [place] [address] Care Team Providers Care General Utility Worker Name Role Phone Cipriano Morfin Primary Care Provider [phone] Cipriano Morfin Unavailable Source Comments In the event this information is protected by the Federal Confidentiality of Alcohol and Drug AbusePatient Records regulations: The Federal rules restrict any use of the information to criminally investigate or prosecute any alcohol or drug abuse patient.[facility] Encounter Details Date Type Department Care Team (Late st Contact Info) Description 09/26/2023 Patient Msg Thoracic Clinic [address] [place], [place] [id number] Provider, Ccf return to work letter Social History Tobacco Use Types Packs/Day Years Used Date Smoking Tobacco: Never Passive Smoke Exposure: Never Smokeless Tobacco: Never Alcohol Use Standard Drinks/Week Comments Yes 0 (1 standard drink = 0.6 oz pur e alcohol) Rarely PHQ-2 Answer Date Recorded PHQ-2 score 0 07/11/2023 Area Deprivation Index Answer Date Roberto rded National Score (1-100), lower number is lower ri sk 65 07/16/2023 State Score (1-10), lower number is lower risk 5 07/16/2023 Data from: https://www.neighborhoodatlas.medicine.[facility]/. Last address used for calculation [address] [...] Lisa Benito RN documented in this encounter Plan of Treatment Upcoming Encounters Date Type Department Care Team (Late st Contact Info) Description 06/01/2025 2:00 PM EST Appointment Radiology [address] [place] [address] [facility] 06/01/2025 3:00 PM EST Office Visit Thoracic Clinic [address] [place] [phone] Kandy Vallecillo, VIVIAN.PELOTA MAKER [address] [place] [address] Malignant neoplasm of thymus (HCC) 06/01/2025 4:00 PM EST Office Visit Neurology [address] [phone] Quinten Lester MD [address] [phone] 6 month follow up 11/13/2025 10:00 AM EDT Office Visit Radiation Oncology [address] [address] Zeferino Patel MD [address] [address] 2 year follow up documented as of this encounter Visit Diagnoses Not on filedocumented in this encounter Care Teams General Utility Worker Relationship Specialty Start Date End Date Cipriano Morfin [address] [place] [address] PCP - General Family Medicine 08/28/23 Cipriano Morfin [address] [place] [address] Referring Family Medicine 08/31/23 documented as of this encounter
--- OUTSIDE RECORDS SUMMARY | 2025-04-20 12:44 | XMS_ITS | Encounter Summary ---
Author Organization [facility] Address [address] [place] [address] Care Team Providers Care Deposition Reporter Name Role Phone Cipriano Morfin Primary Care Provider [phone] Cipriano Morfin Unavailable [phone] Source Comments In the event this information is protected by the Federal Confidentiality of Alcohol and Drug AbusePatient Records regulations: The Federal rules restrict any use of the information to criminally investigate or prosecute any alcohol or drug abuse patient.[facility] Encounter Details Date Type Department Care Team (Late st Contact Info) Description 11/22/2023 Get Medical Advice Neurology [address] [place] [address] David Trinh MD [address] [place], [place] [phone] Vision Social History Tobacco Use Types Packs/Day Years [...] is lower risk 5 07/16/2023 Data from: https://www.neighborhoodatlas.medicine.[facility]/. Last address used for calculation [address] [...] Assessment Author No 09/15/2023 10:28 AM Lisa Bentio RN * Do you have serious difficulty [...] 06/01/2025 2:00 PM EST Appointment Radiology [address] [address] CCT 06/01/2025 3:00 PM EST Office Visit Thoracic Clinic [address] [place] [address] Kandy Vallecillo, VIVIAN.VACUUM SPINDLE SANDER [address] [place] [address] Malignant neoplasm of thymus (HCC) 06/01/2025 4:00 PM EST Office Visit Neurology [address] [place] [address] Quinten Lester MD [address] [place], [place] [phone] 6 month follow up 11/13/2025 10:00 AM EDT Office Visit Radiation Oncology [address] [place] [place] [address] Zeferino Patel MD [address] [place] [address] 2 year follow up documented as of this encounter Visit Diagnoses Not on filedocumented in this encounter Care Teams Deposition Reporter Relationship Specialty Start Date End Date Cipriano Morfin [address] [place] [address] PCP - General Family Medicine 08/28/23 Cipriano Morfin [address] [place] [address] Referring Family Medicine 08/31/23 documented as of this encounter
--- OUTSIDE RECORDS SUMMARY | 2025-04-20 12:44 | XMS_ITS | Clinical Summary ---
Author Organization [facility] Address [address] [place] [address] Care Team Providers Care Director Of Physician Practices Name Role Phone Maida Teixeira NP Unavailable [phone] Allergies No known active allergies Medications ibuprofen 800 MG tabletIndicati ons:Posterior tibial tendinitis of right lower extremity Take 1 tablet (800 mg) by mouth every 8 (eight) hours 270 tablet 5 05/26/20 25 Active predniSONE (Deltasone) 10 MG tablet Take 2 mg by mouth in the morning and 2 mg before bedtime. 04/20/20 25 Discontinued Active Problems Problem Noted Date Diagnosed Date Vision loss 01/20/2024 Myasthenia gravis 01/20/2024 Overview (01/20/2024): It is my impression that the patient has myasthenia gravis. Patient has positive blocking and modulating antibodies. She gets double vision which seems to get worse at the end of the day. No ptosis on exam today. No neck flexor weakness. She has a thymoma which HAS BEEN surgically resected at [facility] by Dr. Turner. Plan: Continue pyridostigmine 30 mg by mouth 4 times a day. Continue prednisone 20 mg by mouth daily We did again discuss signs and symptoms of myasthenic crisis and the patient understands these and will follow closely. Thymoma 01/20/2024 Overview (01/20/2024): The patient has thymoma identified on CT of the chest.She is status post surgical resection from the thymoma by Dr. Turner at [facility]. Thyroid nodule 01/20/2024 Liver lesion 01/20/2024 Overview (01/20/2024): Patient has a lesion identified in the liver. 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 She has established with the Coumadin clinic team to follow this as well Encounters Date Type Department Care Team Description 04/20/2025 9:00 AM EDT Office Visit [facility] [address] [place] [address] [place] [address] Tiffanie Moreno PA Well woman exam with routine gynecological exam; Encounter for screening mammogram for malignant neoplasm of breast; Postmenopausal state 04/20/2025 Bamboo flowsheet [facility] [address] [address] Tiffanie Moreno PA 04/13/2025 Travel 02/25/2025 9:20 AM EDT Ancillary Procedure [facility] [address] [place] [address] 02/25/2025 8:45 AM EDT Office Visit [facility] [address] [place] [address] Ender Treviño, DPJenny Posterior tibial tendinitis of right lower extremity (Primary Dx); Valgus deformity, not elsewhere classified, right ankle; Equinus contracture of right ankle; Right foot pain; Difficulty walking; Instability of right ankle joint 02/25/2025 [facility] [address] [place] [address] Ender Treviño DPM 02/25/2025 Travel 02/24/2025 Travel from Last 3 Months Immunizations Immunization Administration Dates Next Due Influenza, injectable, MDCK, preservative free, quadrivalent 05/13/2019 Influenza, recombinant, quad rivalent, injectable, preservative free 04/14/2022 Family History Medical History Relation Name Comments Diabetes Father Roscoe Yan Cancer Mother Karly Yan Relation Name Status Comments Father Roscoe Yan Alive Mother Karly Yan Social History Tobacco Use Types Packs/Day Years Used Date Smoking Tobacco: Never Smokeless Tobacco: Never Tobacco Cessation:Counseling Given: Not Answered Alcohol Use Standard Drinks/Week Comments Yes 0 [...] PM EDT Sexual Orientation Not on file Last Filed Vital Signs Vital Sign Reading Time Taken Comments Blood Pressure 136/84 04/20/2025 9:11 AM EDT Pulse 73 07/16/2024 3:16 PM EST Temperature - - Respiratory Rate 16 01/22/2024 9:08 AM EDT Oxygen Saturation 96% 07/16/2024 3:16 PM EST Inhaled Oxygen Concentration - - Weight 100 kg (221 lb 8 oz) 04/20/2025 9:11 AM E DT Height 162.6 cm (5' 4 ) 02/25/2025 8:35 AM EDT Body Mass Index 38.02 02/25/2025 8:35 AM EDT Plan of Treatment Upcoming Encounters Date Type Department Care Team (Late st Contact Info) Description 04/26/2026 9:00 AM EDT Procedure Visit [facility] [address] [place] [phone] Tiffanie Moreno PA [address] [facility] [address] [place], [place] [id number] Health Maintenance Due Date Last Done Comments CT Colonography 1968 Colonoscopy 1968 Colorectal Cancer Screening 1968 FIT-DNA 1968 FIT 1968 FOBT 1968 Sigmoidoscopy 1968 Influenza Vaccine (#1) 2025 04/14/2022, 2018 Mammogram 06/03/2025 06/03/2024, 06/05/2023, 02/06 Cervical Cancer Screening 04/14/2029 HPV/Cotest 04/14/2029 Pap Smear 04/14/2029 04/14/2024 Procedures Procedure Name Priority Date/Time Associated Diagnosis Comments XR FOOT 3+ VIEWS RIGHT Routine 9:17 AM EDT Posterior tibial tendinitis of right lower extremity Valgus deformity, not elsewhere classified, right ankle Right foot pain MM TOMOSYNTHESIS SCREENING BI 06/03/2024 1:52 PM EST PAP SMEAR Routine 04/14/2024 12:00 AM EDT from Last 3 Months or Most Recently Relevant to Health Maintenance Results * XR foot 3+ views right (02/25/2025 9:17 AM EDT) Anatomical Region Laterality Modality Lower Extremities, Foot Right Radiogra phic Imaging Narrative 02/25/2025 9:48 AM EDT Imaging Result: AP, medial oblique, lateral views are weight-bearing. Slightly decreased calcaneal inclination and increased talar declination. Enthesophyte at the insertion of the Achilles tendon and plantar fascia. First ray elevation. Approximately 30 percent talar head uncoverage. No fractures or dislocations noted. Joints appear well-maintained. Ender Treviño DPM IMG XR PROCEDURES Final Res ult * MM TOMOSYNTHESIS SCREENING BI (06/03/2024 1:52 PM EST) Anatomical Region Laterality Modality Other 06/03/2024 1:52 PM EST Narrative 06/03/2024 1:54 PM EST The [address] [address] Mammography Report Signed Patient: MARNIE ARANA MR#: [id number] : 1970 Acct:[id number] Age/Sex: 53 / F ADM Date: 06/02/24 Loc: MAMMO Attending Dr: Tiffanie Moreno Ordering Physician: Tiffanie Moreno Results: Date of Service: 06/02/24 Follow Up: Procedure(s): MM tomosynthesis screening BI Accession Number(s): [id number] cc: Tiffanie Moreno; Physician,Non-Staff Rebeca Patient Name: MARNIE ARANA MR#: [id number] : 1970 Exam Date: 06/02/2024 Ordering Doctor: JACQUES Moreno . RADIOLOGY REPORT PROCEDURE: MM TOMOSYNTHESIS SCREENING BI COMPARISON: MM TOMOSYNTHESIS SCREENING BI, 05/30/2023. MG MAMM SCREEN 3D GLORIA CAD, 01/06/2021. MG MAMM SCREEN GLORIA W CAD, 12/19/2019. MG MAMM SCREEN GLORIA W CAD, 07/11/2013. INDICATIONS: screening for malignant neoplasm of breast Calculator Name NCI Breast Cancer Risk Assessment Tool 5 Year Breast Cancer Risk 1.60% Lifetime Breast Cancer Risk 11.20% Personal Breast Cancer No Personal Ovarian Cancer No Treatments None Family Cancers Mother with lymphoma cancer at age 50; Mother with meningioma cancer at age 60. LOCATION: The [facility] BREAST COMPOSITION: There are scattered areas of fibroglandular density. FINDINGS: DIAGNOSTIC CATEGORY 2--BENIGN FINDING: RIGHT BREAST: No significant suspicious finding. Scattered benign-appearing calcifications are present. No significant change has occurred. LEFT BREAST: No significant suspicious finding. Scattered benign-appearing calcifications are present. No significant change has occurred. RECOMMENDATIONS: ROUTINE MAMMOGRAM AND CLINICAL EVALUATION IN 12 MONTHS. PLEASE NOTE: A NORMAL MAMMOGRAM DOES NOT EXCLUDE THE POSSIBILITY OF BREAST CANCER. A CLINICALLY SUSPICIOUS PALPABLE LUMP SHOULD BE BIOPSIED. Dictated by: Demar Mills M.D. on 06/03/2024 at 13:49 Approved by: Demar Mills M.D. on 06/03/2024 at 13:52 Dictated By: Demar Mills M.D. Signed By: 06/03/24 1354 DD/ 1352 TD/TT: Vice President Of Manufacturing: Procedure Note Radiology, Radiologist, MD - 06/03/2024 [place] [address] Mammography Report Signed Patient: MARNIE ARANA LMR#: [id number] : 1970Acct:[id number] Age/Sex: 53 / FADM Date: 06/02/24 Loc: MAMMO Attending Dr: Tiffanie Moreno Ordering Physician: Tiffanie MorenoResults: Date of Service: 06/02/24Follow Up: Procedure(s): MM tomosynthesis screening BI Accession Number(s): [id number] cc: Tiffanie Moreno; Physician,Non-Staff M.D. Patient Name: MARNIE ARANA MR#: [id number] : 1970 Exam Date: 06/02/2024 Ordering Doctor: JACQUES Moreno . RADIOLOGY REPORT PROCEDURE: MM TOMOSYNTHESIS SCREENING BI COMPARISON: MM TOMOSYNTHESIS SCREENING BI, 05/30/2023. MG MAMM [id number] GLORIA CAD, 01/06/2021. MG MAMM SCREEN GLORIA W CAD, 12/19/2019. MG MAMM SCREENBIL W CAD, 07/11/2013. INDICATIONS: screening for malignant neoplasm of breast Calculator Name NCI Breast Cancer Risk Assessment Tool 5 Year Breast Cancer Risk 1.60% Lifetime Breast Cancer Risk 11.20% Personal Breast Cancer No Personal Ovarian Cancer No Treatments None Family Cancers Mother with lymphoma cancer at age 50; Mother with meningioma cancer at age 60. LOCATION: The [facility] BREAST COMPOSITION: There are scattered areas of fibroglandulardensity. FINDINGS: DIAGNOSTIC CATEGORY 2--BENIGN FINDING: RIGHT BREAST: No significant suspicious finding. Scatteredbenign-appearing calcifications are present. No significant change has occurred. LEFT BREAST: No significant suspicious finding. Scatteredbenign-appearing calcifications are present. No significant change has occurred. RECOMMENDATIONS: ROUTINE MAMMOGRAM AND CLINICAL EVALUATION IN 12 MONTHS. PLEASE NOTE: A NORMAL MAMMOGRAM DOES NOT EXCLUDE THE POSSIBILITY OFBREAST CANCER. A CLINICALLY SUSPICIOUS PALPABLE LUMP SHOULD BE BIOPSIED. Dictated by: Demar Mills M.D. on 06/03/2024 at 13:49 Approved by: Demar Mills M.D. on 06/03/2024 at 13:52 Dictated By: Demar Mills M.D. Signed By:06/03/24 1354 DD/ 1352 TD/TT: Vice President Of Manufacturing: Tiffanie [facility] Final Result * Pap Smear (04/14/2024 12:00 AM EDT) Swab Cervical swab / Unknown Tiffanie HANNA LAB CYTOLOGY ORDERABLES Final Re sult EXTERNAL LAB from Last 3 Months or Most Recently Relevant to Health Maintenance Insurance [employer] [facility] Address[place] [id number] [place] [id number] Care Teams Director Of Physician Practices Relationship Specialty Start Date End Date Maida Teixeira NP [address] [place] [address] Primary Care Provider Family Medicine 02/12/25
--- OUTSIDE RECORDS SUMMARY | 2025-04-20 12:44 | XMS_ITS | Encounter Summary ---
Author Organization [facility] Address [address] [place] [address] Care Team Providers Care Supervisor Fish Hatchery Name Role Phone Maida Teixeira CERTIFIED SCRUB TECH Unavailable [phone] Encounter Details Date Type Department Care Team (Latest Contact Info) Description 04/13/2025 Travel Social History Tobacco Use Types Packs/Day Years [...] Description 04/26/2026 9:00 AM EDT Procedure Visit [facility] [address] [place] [address] Tiffanie Moreno PA [address] [facility] [address] [place], [place] [phone] documented as of this encounter Visit Diagnoses Not on filedocumented in this encounter Care Teams Supervisor Fish Hatchery Relationship Specialty Start Date End Date Maida Teixeira NP [address] [place] [address] Primary Care Provider Family Medicine 02/12/25 documented as of this encounter
--- OUTSIDE RECORDS SUMMARY | 2025-04-20 12:44 | XMS_ITS | Encounter Summary ---
Author Organization [facility] Address [address] [place] [address] Care Team Providers Care Shellfish Bed Worker Name Role Phone Cipriano Adorno MD Primary Care Provider + [phone] Tiffanie Calloway Unavailable Maida Teixeira NP Unavailable [phone] Encounter Details Date Type Department Care Team (Late st Contact Info) Description 06/05/2023 Clinisync Result Encounter [facility] External Department Unsolicited Tiffanie Calloway PA [address] [facility] [place] [address] Social History Tobacco Use Types Packs/Day Years Used Date Smoking Tobacco: Never Alcohol Use Standard Drinks/Week Comments Never 0 [...] 9:00 AM EDT Procedure Visit [facility] [address] [place] [phone] Tiffanie Calloway PA [address] [facility] [address] [place], [place] [phone] documented as of this encounter Procedures Procedure Name Priority Date/Time Associated Diagnosis Comments MM TOMOSYNTHESIS SCREENING BI 06/05/2023 11:59 AM EST documented in this encounter Results * MM TOMOSYNTHESIS SCREENING BI (06/05/2023 11:59 AM EST) Anatomical Region Laterality Modality Other 06/05/2023 11:5 9 AM EST Narrative 06/05/2023 11:59 [place] [address] Mammography Report Signed Patient: Serena Thomas MR#: [id number] : 1970 Acct:[id number] Age/Sex: 52 / F ADM Date: 05/30/23 Loc: MAMMO Attending Dr: Tiffanie Calloway Ordering Physician: Tiffanie Calloway Results: Date of Service: 05/30/23 Follow Up: Procedure(s): MM tomosynthesis screening BI Accession Number(s): [id number] cc: Tiffanie Calloway; Physician,Non-Staff M.D. Patient Name: SERENA THOMAS MR#: [id number] : 1970 Exam Date: 05/30/2023 Ordering Doctor: JACQUES CALLOWAY . RADIOLOGY REPORT PROCEDURE: MM TOMOSYNTHESIS SCREENING BI COMPARISON: MG MAMM SCREEN 3D GLORIA CAD, 01/06/2021. MG MAMM SCREEN GLORIA W CAD, 12/19/2019. MG MAMM SCREEN GLORIA W CAD, 10/21/2018. MG MAMM SCREEN GLORIA W CAD, 07/11/2013. INDICATIONS: Screening Calculator Name NCI Breast Cancer Risk Assessment Tool 5 Year Breast Cancer Risk 1.60% Lifetime Breast Cancer Risk 11.40% Personal Breast Cancer No Personal Ovarian Cancer No Treatments None Family Cancers Mother with lymphoma cancer at age 50; Mother with meningioma cancer at age 60. LOCATION: [facility] BREAST COMPOSITION: Scattered areas fibroglandular density. FINDINGS: DIAGNOSTIC CATEGORY 2--BENIGN FINDING: RIGHT BREAST: No significant suspicious finding. Scattered benign-appearing calcifications are present. Scattered benign-appearing lymph nodes are present. No significant change has occurred. LEFT BREAST: No significant suspicious finding. Scattered benign-appearing calcifications are present. Scattered benign-appearing lymph nodes are present. No significant change has occurred. RECOMMENDATIONS: ROUTINE MAMMOGRAM AND CLINICAL EVALUATION IN 12 MONTHS. PLEASE NOTE: A NORMAL MAMMOGRAM DOES NOT EXCLUDE THE POSSIBILITY OF BREAST CANCER. A CLINICALLY SUSPICIOUS PALPABLE LUMP SHOULD BE BIOPSIED. Dictated by: Demar Milsl M.D. on 06/05/2023 at 11:55 Approved by: Demar Mills M.D. on 06/05/2023 at 11:59 Dictated By: Demar Mills M.D. Signed By: 06/05/23 1200 DD/ 1159 TD/TT: Emergency Medicine Physician: Procedure Note Radiology, Radiologist, MD - 06/05/2023 [place] [address] Mammography Report Signed Patient: Serena Thomas LMR#: [id number] : 1970Acct:[id number] Age/Sex: 52 / FADM Date: 05/30/23 Loc: MAMMO Attending Dr: Tiffanie Calloway Ordering Physician: Tiffanie CallowayResults: Date of Service: 05/30/23Follow Up: Procedure(s): MM tomosynthesis screening BI Accession Number(s): [id number] cc: Tiffanie Calloway; Physician,Non-Staff Rebeca Patient Name: SERENA THOMAS MR#: [id number] : 1970 Exam Date: 05/30/2023 Ordering Doctor: JACQUES CALLOWAY . RADIOLOGY REPORT PROCEDURE: MM TOMOSYNTHESIS SCREENING BI COMPARISON: MG MAMM SCREEN 3D GLORIA CAD, 01/06/2021. MG MAMM SCREEN BILW CAD, 12/19/2019. MG MAMM SCREEN GLORIA W CAD, 10/21/2018. MG MAMM SCREEN BILW CAD, 07/11/2013. INDICATIONS: Screening Calculator Name NCI Breast Cancer Risk Assessment Tool 5 Year Breast Cancer Risk 1.60% Lifetime Breast Cancer Risk 11.40% Personal Breast Cancer No Personal Ovarian Cancer No Treatments None Family Cancers Mother with lymphoma cancer at age 50; Mother with meningioma cancer at age 60. LOCATION: [facility] BREAST COMPOSITION: Scattered areas fibroglandular density. FINDINGS: DIAGNOSTIC CATEGORY 2--BENIGN FINDING: RIGHT BREAST: No significant suspicious finding. Scatteredbenign-appearing calcifications are present. Scattered benign-appearing lymph nodes are present. No significant change has occurred. LEFT BREAST: No significant suspicious finding. Scatteredbenign-appearing calcifications are present. Scattered benign-appearing lymph nodes are present. No significant change has occurred. RECOMMENDATIONS: ROUTINE MAMMOGRAM AND CLINICAL EVALUATION IN 12 MONTHS. PLEASE NOTE: A NORMAL MAMMOGRAM DOES NOT EXCLUDE THE POSSIBILITY OFBREAST CANCER. A CLINICALLY SUSPICIOUS PALPABLE LUMP SHOULD BE BIOPSIED. Dictated by: Demar Mills M.D. on 06/05/2023 at 11:55 Approved by: Demar Mills M.D. on 06/05/2023 at 11:59 Dictated By: Demar Mills M.D. Signed By:06/05/23 1200 DD/ 1159 TD/TT: Emergency Medicine Physician: Tiffanie [facility] Final Result documented in this encounter Visit Diagnoses Not on filedocumented in this encounter Care Teams Shellfish Bed Worker Relationship Specialty Start Date End Date Cipriano Adorno MD PCP - General Family Medicine 04/11/23 02/11/25 Tiffanie Calloway PA [address] [place] [address] [place] [address] PCP - Medical [place] [employer] 07/09/21 07/15/24 Madia Teixeira NP [address] [place] [address] Primary Care Provider Family Medicine 02/12/25 documented as of this encounter
--- OUTSIDE RECORDS SUMMARY | 2025-04-20 12:44 | XMS_ITS | Clinical Summary ---
Author Organization [employer] Address [id number] [address] [place] [address] Care Team Providers Care New Car Make Ready Mechanic Name Role Phone Maida Teixeira APRN-ISABELL Primary Care Provide r Allergies Active Allergy Reactions Criticality Noted Date Comments No Known Drug Allergies 02/14/2017 Medications No known medications Active Problems Problem Noted Date Diagnosed Date Thymoma 03/03/2024 Myasthenia gravis 06/13/2023 Encounters Date Type Department Care Team Description 02/11/2025 2:45 PM EDT [facility] [address] [place] [phone] Maida Teixeira APRN-CNP Acute right ankle pain (Primary Dx); Myasthenia gravis ([facility]) 02/10/2025 Travel from Last 3 Months Immunizations Immunization Administration Dates Next Due Influenza, Injectable, Mdck, Preservative Free, Quad 05/13/2019 Social History Tobacco Use Types Packs/Day Years Used Date Smoking Tobacco: Never Smokeless Tobacco: Never Tobacco Cessation:Counseling Given: Not Answered Alcohol Use Standard Drinks/Week Comments No 0 (1 standard drink = 0.6 oz pur e alcohol) Overall Financial Resource Strain (CARDIA) Answe r Date Recorded How hard is it for you to pa y for the very basics like food, housing, medical care, and heating? Not hard at all 05/19/2024 PHQ-2 Answer Date Recorded Total Score 0 02/11/2025 PRAPARE - Transportation Answer Date Re corded In the past 12 months, has l ack of transportation kept you from medical appointments or from getting medications? No 05/09 In the past 12 months, has l ack of transportation kept you from meetings, work, or from getting things needed for daily living? No 05/19/2024 Housing Instability Answer Date Recorde d Are you worried or concerned that in the next two months you may not have stable housing that you own, rent or stay in as a part of a household? No 05/19/2024 Childcare Answer Date Recorded Childcare Unknown 12/16/2018 Employment Answer Date Recorded Employment Unknown 12/16/2018 Hunger Screening Answer Date Recorded Within the past 12 months we worried whether our food would run out before we got money to buy more. Never True 02/11/2025 Within the past 12 months th e food we bought just didn't last and we didn't have money to get more. Never True 02/11/2025 Purpose - Life Answer Date Recorded Purpose and direction in life Unknown Comments No Sex and Gender Information Value Date Recorded Sex Assigned at Not on file Legal Sex Female 11:59 AM EDT Gender Identity Not on file Sexual Orientation Not on file Last Filed Vital Signs Vital Sign Reading Time Taken Comments Blood Pressure 124/76 02/11/2025 2:51 PM EDT Pulse 74 02/11/2025 2:51 PM EDT Temperature 36.2 C (97.1 F) 02/04/2020 4:19 PM EDT Respiratory Rate 18 02/11/2025 2:51 PM EDT Oxygen Saturation 98% 02/11/2025 2:51 PM EDT Inhaled Oxygen Concentration - - Weight 101.6 kg (224 lb) 02/11/2025 2:51 PM EDT Height 158.8 cm (5' 2.5 ) 09/16/2024 2:51 PM EDT Body Mass Index 40.32 09/16/2024 2:51 PM EDT Plan of Treatment Upcoming Encounters Date Type Department Care Team (Late st Contact Info) Description 09/21/2025 9:00 AM EDT Office Visit [facility] [address] [place] [address] Maida Teixeira, MACHINE MOLDER-RESEARCH CENTER DIRECTOR [address] [place] [address] Health Maintenance Due Date Last Done Comments DTaP,Tdap and Td Vaccines (1 - Tdap) 1987 Zoster (Shingles) Vaccine (1 of 2) 2018 Mammogram 05/30/2024 05/30/2023 COVID-19 Vaccine (5 - 2024-2 6 season) 2025 12/28/2021, 05/24/2021, 10/01/2020, Additional history exists Influenza Vaccine 03/09/2025 04/14/2022, 05/13/2019 Adult BMI Follow Up Plan 09/16/2025 09/16/2024 Adult BMI Screening 02/11/2026 02/11/2025 Depression Screening 02/11/2026 02/11/2025 Tobacco Screening 02/11/2026 02/11/2025 Colonoscopy 01/19/2031 01/19/2021 Pap Smear Discontinued 04/14/2024, 02/14/2017 Medical Devices Not on file Procedures Procedure Name Priority Date/Time Associated Diagnosis Comments HM MAMMOGRAPHY Routine 05/30/2023 11:01 AM EST HM COLONOSCOPY Routine 01/19/2021 11:02 AM EDT PAP SMEAR Routine 02/14/2017 from Last 3 Months or Most Recently Relevant to Health Maintenance Results * HM MAMMOGRAPHY (05/30/2023 11:01 AM EST) Anatomical Region Laterality Modality Other us Scanning Provider External HEALTH MAINTENANCE Fi nal Result * HM COLONOSCOPY (01/19/2021 11:02 AM EDT) us Scanning Provider External HEALTH MAINTENANCE Fi nal Result MANUALLY TRANSCRIBED RESULTS * Pap Smear (02/14/2017) 02/14/2017 us Scanning Provider External PATHOLOGY/CYTOLOGY OR DERABLES Final Result MANUALLY TRANSCRIBED RESULTS from Last 3 Months or Most Recently Relevant to Health Maintenance Insurance [employer] Care Teams New Car Make Ready Mechanic Relationship Specialty Start Date End Date Maida Teixeira APRN-ISABELL [address] [place] [address] PCP - General Family Medicine 06/13/18
--- OUTSIDE RECORDS SUMMARY | 2025-04-20 12:44 | XMS_ITS | Encounter Summary ---
Author Organization [facility] Address [address] [place] [address] Care Team Providers Care Clinical Staff Pharmacist Name Role Phone Cipriano Adorno MD Primary Care Provider + [phone] Tiffanie Calloway Unavailable Maida Teixeira NP Unavailable [phone] Encounter Details Date Type Department Care Team (Late st Contact Info) Description 05/30/2023 Clinisync Result Encounter [facility] External Department Unsolicited Tiffanie Calloway PA [address] [facility] [place] [address] Social History Tobacco Use Types Packs/Day [...] Procedure Visit NOMMarco A Frost OBG[facility]yndsay [address] [place] [address] Tiffanie Calloway PA [address] [facility] [address] [place], [place] [address] documented as of this encounter Procedures Procedure Name Priority Date/Time Associated Diagnosis Comments XR DEXA AXIAL SKELETON 05/30/2023 12:18 PM EST documented in this encounter Results * XR DEXA AXIAL SKELETON (05/30/2023 12:18 PM EST) Anatomical Region Laterality Modality Other 05/30/2023 12:1 8 PM EST Narrative 05/30/2023 12:18 [place] [address] XRay Report Signed Patient: Serena Thomas MR#: [id number] : 1970 Acct:[id number] Age/Sex: 52 / F ADM Date: 05/30/23 Loc: MAMMO Attending Dr: Tiffanie Calloway Ordering Physician: Tiffanie Calloway Date of Service: 05/30/23 Procedure(s): XR DEXA axial skeleton Accession Number(s): [id number] cc: Tiffanie Calloway; Physician,Non-Staff M.D. [address] [address] Patient Name: SERENA THOMAS MRN: [id number] date: 1970 Sex: F Assigned Patient Location: [facility] Current Patient Location: [facility] Accession/Order Number: [id number] Exam Date: 05/30/2023 08:15 Report Date: 05/30/2023 12:18 At the request of: TIFFANIE CALLOWAY Procedure: XR DEXA axial skeleton EXAM: XR DEXA axial skeleton HISTORY: Screening For Osteoporosis Z13.820 COMPARISON: None. TECHNIQUE: Routine DEXA scan lumbar spine and bilateral hips. FINDINGS: L1-L4: Bone mineral density 1.199 g/sq cm and T score 0.2 Left femoral neck: Bone mineral density 0.892 g/sq cm and T score -1.0 Left hip total: Bone mineral density 1.076 g/sq cm and T score 0.5 Right femoral neck: Bone mineral density 0.945 g/sq cm and T score -0.7 Right hip total: Bone mineral density 1.084 g/sq cm and T score 0.6 XR/XR DEXA axial skeleton IMPRESSION: Normal bone mineral density. Electronically authenticated by: FREDY STUART Date: 05/30/2023 12:18 Dictated By: Fredy Stuart M.D. Signed By: 05/30/23 1220 DD/ 1218 TD/TT: Flexible Machining System Machinist: Procedure Note Radiology, Radiologist, - 05/30/2023 [place] [address] XRay Report Signed Patient: Serena Thomas LMR#: [id number] : 1970Acct:[id number] Age/Sex: 52 / FADM Date: 05/30/23 Loc: MAMMO Attending Dr: Tiffanie Calloway Ordering Physician: Tiffanie Calloway Date of Service: 05/30/23 Procedure(s): XR DEXA axial skeleton Accession Number(s): [id number] cc: Tiffanie Calloway; Physician,Non-Staff Rebeca [address] [place] [id number] Patient Name: SERENA THOMAS MRN: [id number] date: 1970 Sex: F Assigned Patient Location: [facility] Current Patient Location: [facility] Accession/Order Number: [id number] Exam Date: 05/30/2023 08:15 Report Date: 05/30/2023 12:18 At the request of: TIFFANIE CALLOWAY Procedure: XR DEXA axial skeleton EXAM: XR DEXA axial skeleton HISTORY: Screening For Osteoporosis Z13.820 COMPARISON: None. TECHNIQUE: Routine DEXA scan lumbar spine and bilateral hips. FINDINGS: L1-L4: Bone mineral density 1.199 g/sq cm and T score 0.2 Left femoral neck: Bone mineral density 0.892 g/sq cm and T score -1.0 Left hip total: Bone mineral density 1.076 g/sq cm and T score 0.5 Right femoral neck: Bone mineral density 0.945 g/sq cm and T score -0.7 Right hip total: Bone mineral density 1.084 g/sq cm and T score 0.6 XR/XR DEXA axial skeleton IMPRESSION: Normal bone mineral density. Electronically authenticated by: FREDY STUART Date: 05/30/2023 12:18 Dictated By: Fredy Stuart M.D. Signed By:05/30/23 1220 DD/ 1218 TD/TT: Flexible Machining System Machinist: us Tiffanie [facility] Final Result documented in this encounter Visit Diagnoses Not on filedocumented in this encounter Care Teams Clinical Staff Pharmacist Relationship Specialty Start Date End Date Cipriano Adorno MD PCP - General Family Medicine 04/11/23 02/11/25 Tiffanie Calloway PA [address] [place] [address] [place] [address] PCP - Medical [place] [employer] 07/09/21 07/15/24 Maida Teixeira NP [address] [place] [address] Primary Care Provider Family Medicine 02/12/25 documented as of this encounter
--- OUTSIDE RECORDS SUMMARY | 2025-04-20 12:44 | XMS_ITS | Encounter Summary ---
Author Organization [facility] Address [address] [place] [address] Care Team Providers Care Seater Grinder Name Role Phone Cipriano Morfin Primary Care Provider [phone] Cipriano Morfin Unavailable [phone] Source Comments In the event this information is protected by the Federal Confidentiality of Alcohol and Drug AbusePatient Records regulations: The Federal rules restrict any use of the information to criminally investigate or prosecute any alcohol or drug abuse patient.[facility] Encounter Details Date Type Department Care Team (Late st Contact Info) Description 09/21/2023 Abstract Thoracic Clinic [address] [id number] Kandy Vallecillo APRN.PRINT MANAGER [address] [place] [address] Social History Tobacco Use Types Packs/Day Years [...] is lower risk 5 07/16/2023 Data from: https://www.neighborhoodatlas.medicine.[facility]/. Last address used for calculation 24 [...] 06/01/2025 2:00 PM EST Appointment Radiology [address] [address] CCT 06/01/2025 3:00 PM EST Office Visit Thoracic Clinic [address] [place] [address] Kandy Vallecillo, VIVIAN.PRINT MANAGER [address] [place] [address] Malignant neoplasm of thymus (HCC) 06/01/2025 4:00 PM EST Office Visit Neurology [address] [place] [address] Quinten Lester MD [address] [place] [address] 6 month follow up 11/13/2025 10:00 AM EDT Office Visit Radiation Oncology [address] [place] [address] Zeferino Patel MD [address] [facility] [place] [address] 2 year follow up documented as of this encounter Visit Diagnoses Not on filedocumented in this encounter Care Teams Seater Grinder Relationship Specialty Start Date End Date Cipriano Morfin [address] [facility] [place] [address] PCP - General Family Medicine 08/28/23 Cipriano Morfin [address] [place] [address] Referring Family Medicine 08/31/23 documented as of this encounter
--- OUTSIDE RECORDS SUMMARY | 2025-04-20 12:44 | XMS_ITS | Encounter Summary ---
Author Organization [facility] Address [address] [place] [place] [address] Care Team Providers Care Clinical Lab Scientist Name Role Phone Maida Teixeira BEHAVIORAL HEALTH CONSULTANT Unavailable [phone] Encounter Details Date Type Department Care Team (Late Contact Info) Description 04/20/2025 Bamboo flowsheet NOMMarco A MCKEON [address] [facility] [place] [address] Tiffanie Mroeno PA [address] [place], [facility] Social History Tobacco Use Types Packs/Day Years [...] 04/26/2026 9:00 AM EDT Procedure Visit [facility] Bhavin MCKEON [address] [place] [address] Tiffanie Moreno PA [address] [facility] [place] [address] documented as of this encounter Visit Diagnoses Not on filedocumented in this encounter Care Teams Clinical Lab Scientist Relationship Specialty Start Date End Date Maida Teixeira NP [address] [place] [address] Primary Care Provider Family Medicine 02/12/25 documented as of this encounter
--- OUTSIDE RECORDS SUMMARY | 2025-04-20 12:44 | XMS_ITS | Encounter Summary ---
Author Organization [facility] Address [address] [place] [address] Care Team Providers Care Proj Mgr Name Role Phone Cipriano Adorno MD Primary Care Provider [phone] Tiffanie Moreno Unavailable Maida Teixeira NP Unavailable [phone] Encounter Details Date Type Department Care Team (Late st Contact Info) Description 06/03/2024 Clinisync Result Encounter [facility] External Department Unsolicited Tiffanie Moreno PA [address] [place], [place] [id number] Social History Tobacco Use Types Packs/Day Years [...] 9:00 AM EDT Procedure Visit [facility] Santosh MCKEON [address] [place] [address] Tiffanie Moreno PA [address] [facility] [place] [address] documented as of this encounter Procedures Procedure Name Priority Date/Time Associated Diagnosis Comments MM TOMOSYNTHESIS SCREENING BI 06/03/2024 1:52 PM EST documented in this encounter Results * MM TOMOSYNTHESIS SCREENING BI (06/03/2024 1:52 PM EST) Anatomical Region Laterality Modality Other 06/03/2024 1:52 PM EST Narrative 06/03/2024 1:54 PM EST The [address] [address] Mammography Report Signed Patient: SERENA CAR MR#: [id number] : 1970 Acct:[id number] Age/Sex: 53 / F ADM Date: 06/02/24 Loc: MAMMO Attending Dr: Tiffanie Moreno Ordering Physician: Tiffanie Moreno Results: Date of Service: 06/02/24 Follow Up: Procedure(s): MM tomosynthesis screening BI Accession Number(s): [id number] cc: Tiffanie Moreno; Physician,Non-Staff M.D. Patient Name: SERENA CAR MR#: [id number] : 1970 Exam Date: 06/02/2024 Ordering Doctor: [...] meningioma cancer at age 58. LOCATION: The [facility] BREAST COMPOSITION: There are scattered areas of [...] Signed By: 06/03/24 1354 DD/ 1352 TD/TT: Elevator Mechanic: Procedure Note Radiology, Radiologist, MD - 06/03/2024 [place] [address] Mammography Report Signed Patient: SERENA CAR LMR#: [id number] : 1970Acct:[id number] Age/Sex: 53 / FADM Date: 06/02/24 Loc: MAMMO Attending Dr: Tiffanie Moreno Ordering Physician: Tiffanie MorenoResults: Date of Service: 06/02/24Follow Up: Procedure(s): MM tomosynthesis screening BI Accession Number(s): [id number] cc: Tiffanie Moreno; Physician,Non-Staff M.William Patient Name: SERENA CAR MR#: [id number] : 1970 Exam Date: 06/02/2024 Ordering Doctor: JACQUES Moreno . RADIOLOGY REPORT PROCEDURE: MM TOMOSYNTHESIS SCREENING BI COMPARISON: MM TOMOSYNTHESIS SCREENING BI, 05/30/2023. MG MAMM [id number] GLORIA CAD, 01/06/2021. MG MAMM SCREEN GLORIA [...] meningioma cancer at age 58. LOCATION: The [facility] BREAST COMPOSITION: There are scattered areas of [...] M.D. Signed By:06/03/24 1354 DD/ 1352 TD/TT: Elevator Mechanic: Tiffanie [facility] Final Result documented in this encounter Visit Diagnoses Not on filedocumented in this encounter Care Teams Proj Mgr Relationship Specialty Start Date End Date Cipriano Adorno MD PCP - General Family Medicine 04/11/23 02/11/25 Tiffanie Moreno PA [address] [place] [address] [place] [address] PCP - Medical [place] [employer] 07/09/21 07/15/24 Maida Teixeira NP [address] [place] [address] Primary Care Provider Family Medicine 02/12/25 documented as of this encounter
--- OUTSIDE RECORDS SUMMARY | 2025-04-20 12:44 | XMS_ITS | Encounter Summary ---
Author Organization [facility] Address [address] [place] [address] Care Team Providers Care Philosophy Lecturer Name Role Phone Tono De Los Santos DO Primary Care Provider Cipriano Morfin Primary Care Provider [phone] Cipriano Morfin Unavailable [phone] Source Comments In the event this information is protected by the Federal Confidentiality of Alcohol and Drug AbusePatient Records regulations: The Federal rules restrict any use of the information to criminally investigate or prosecute any alcohol or drug abuse patient.[facility] Encounter Details Date Type Department Care Team (Late st Contact Info) Description 08/24/2023 Patient Msg Thoracic Clinic [address] [place] [address] Provider, Ccf Office information Social History Tobacco Use Types Packs/Day Years [...] is lower risk 5 07/16/2023 Data from: https://www.neighborhoodatlas.medicine.[facility]/. Last address used for calculation 24 [...] 06/01/2025 2:00 PM EST Appointment Radiology [address] [id number] CCT 06/01/2025 3:00 PM EST Office Visit Thoracic Clinic [address] [phone] Kandy Vallecillo, SOUND INSTALLATION WORKER.TRANSPORTATION DISPATCHER [address] [place] [address] Malignant neoplasm of thymus (HCC) 06/01/2025 4:00 PM EST Office Visit Neurology [address] [address] Quinten Lester MD [address] [place] [address] 6 month follow up 11/13/2025 10:00 AM EDT Office Visit Radiation Oncology [address] [place] [address] [place] [address] Zeferino Patel MD [address] [place] [address] 2 year follow up documented as of this encounter Visit Diagnoses Not on filedocumented in this encounter Care Teams Philosophy Lecturer Relationship Specialty Start Date End Date Tono De Los Santos DO [address] [place] [address] PCP - General Neurology 07/11/23 08/27/23 Cipriano Morfin [address] [place] [place], [place] [address] PCP - General Family Medicine 08/28/23 Cipriano Morfin [address] [place], [place] [address] Referring Family Medicine 08/31/23 documented as of this encounter
--- OUTSIDE RECORDS SUMMARY | 2025-04-20 12:44 | XMS_ITS | Encounter Summary ---
Author Organization [facility] Address [address] [place] [address] Care Team Providers Care Buffing Wheel Former Automatic Name Role Phone Cipriano Adorno MD Primary Care Provider + [phone] Tiffanie Moreno Unavailable Maida Teixeira NP Unavailable [phone] Encounter Details Date Type Department Care Team (Late Contact Info) Description 04/21/2024 Orders Only AMERICO MCKEON [address] [facility] [address] Ifrah Colvin MA [address] [facility] [place] [address] Social History Tobacco Use Types Packs/Day Years [...] 9:00 AM EDT Procedure Visit NOMMarco A QUARLESGYN [address] [facility] [address] Tiffanie Moreno PA [address] [facility] [address] [place], [place] [address] documented as of this encounter Procedures Procedure Name Priority Date/Time Associated Diagnosis Comments PAP SMEAR Routine 04/14/2024 12:00 AM EDT documented in this encounter Results * Pap Smear (04/14/2024 12:00 AM EDT) Swab Cervical swab / Unknown us Tiffanie [facility] ORDERABLES Final Re sult EXTERNAL LAB documented in this encounter Visit Diagnoses Not on filedocumented in this encounter Care Teams Buffing Wheel Former Automatic Relationship Specialty Start Date End Date Cipriano Adorno MD PCP - General Family Medicine 04/11/23 02/11/25 Tiffanie Moreno PA [address] [facility] [place] [address] PCP - Medical [place] [employer] 07/09/21 07/15/24 Maida Teixeira NP [address] [place] [address] Primary Care Provider Family Medicine 02/12/25 documented as of this encounter
--- OUTSIDE RECORDS SUMMARY | 2025-04-20 12:44 | XMS_ITS | Encounter Summary ---
Author Organization [facility] Address [address] [place] [address] Care Team Providers Care Painting Department Supervisor Name Role Phone Ciprinao Morfin Primary Care Provider [phone] Cipriano Morfin Unavailable [phone] Source Comments In the event this information is protected by the Federal Confidentiality of Alcohol and Drug AbusePatient Records regulations: The Federal rules restrict any use of the information to criminally investigate or prosecute any alcohol or drug abuse patient.[facility] Reason for Visit * Reason Comments Radiology US Encounter Details Date Type Department Care Team (Late st Contact Info) Description 09/27/2023 Radiology Radiology [address] [place] [address] Naa Dickey RT(R) Radiology US Social History Tobacco Use Types Packs/Day Years [...] is lower risk 5 07/16/2023 Data from: https://www.neighborhoodatlas.medicine.[facility]/. Last address used for calculation [...] Lisa Benito RN documented in this encounter Progress Notes * Naa Dickey RT(R) - 09/27/2023 10:11 AM EDT Radiology Service Progress Note PATIENT NAME: Serena Arana DATE OF SERVICE: September 27, 2023 TIME: 10:11 AM PATIENT IDENTITY VERIFICATION COMPLETED USING TWO (2) IDENTIFIERS: Name and Date of confirmedby patient verbally. FALL SCREENING: Has the patient had 2 falls in the last year or 1 fall with injury or currently using an Ambulatory Assistive Device (Walker, Cane, Wheelchair, Crutches, etc.)? No PATIENT GENDER DATA: Female. status: : No status: N/A PATIENT RELEVANT IMPLANT DATA REVIEWED: Not Applicable PATIENT PRESENTS WITH AN IMPLANTABLE OR ATTACHED WAREHOUSE LOADER: No RADIOLOGY DEPARTMENT: Ultrasound PERIPHERAL IV DATA: Not applicable SIGNED BY: RT Rosa(R) September 27, 2023 10:11 AM documented in this encounter Plan of Treatment Upcoming Encounters Date Type Department Care Team (Late st Contact Info) Description 06/01/2025 2:00 PM EST Appointment Radiology [address] [phone] CCT 06/01/2025 3:00 PM EST Office Visit Thoracic Clinic [address] [phone] Kandy Vallecillo, MOTOR EQUIPMENT COMMANDING OFFICER.DIRECTOR INVESTMENT BANKING [address] [place] [address] Malignant neoplasm of thymus (HCC) 06/01/2025 4:00 PM EST Office Visit Neurology [address] [phone] Quinten Lester MD [address] [place] [address] 6 month follow up 11/13/2025 10:00 AM EDT Office Visit Radiation Oncology [address] [place] [place] [address] Zeferino Patel MD [address] [facility] [place] [place] [address] 2 year follow up documented as of this encounter Visit Diagnoses Not on filedocumented in this encounter Care Teams Painting Department Supervisor Relationship Specialty Start Date End Date Cipriano Morfin [address] [place] [address] PCP - General Family Medicine 08/28/23 de Cipriano Sims [address] [place] [address] Referring Family Medicine 08/31/23 documented as of this encounter
--- OUTSIDE RECORDS SUMMARY | 2025-04-20 12:45 | XMS_ITS | CCD ---
Author Organization [facility] Care Team Providers Care Rolling Machine Operator Automatic Name Role Phone PATRICIA, DR HUGGINS Consulting [...] Primary Care Unavailable AKIL RODRIGUEZ Attending Unavailable ROSS, AKIL Consulting Unavailable NILL, DR BAIN Admitting Unavailable DEFRANCE, DR GOTTI Primary Care Unavailable NILL, DR BAIN Attending Unavailable NILL, DR BAIN Consulting Unavailable DORKOSKIE, DEIRDRE Consulting Unavailable Claire De Los Santos DO Primary Care Provider Ana María Mckeon Primary Care Provider CLAIRE DE LOS SANTOS Primary Care Unavailab JASIEL Baca Referring Unavailable Ana María Mckeon Unavailable Ana María Mckeon Primary Care Provider Ana María Adorno MD Primary Care Provider Tiffanie Hernandez Unavailable CLAIRE DE LOS SANTOS Attending Unavailable TIFFANIE MORENO Attending Unavailable CLAIRE DE LOS SANTOS Attending Unavailable Cristian Martinez Primary Care Provide r CRISTIAN TEIXEIRA Referring Unavailable CRISTIAN TEIXEIRA Primary Care Unavailable KANDY VALLECILLO Referring Unavailable QUINTEN RUIZ Attending Unavailable ANA MARÍA MCKEON Primary Care Unavaila KANDY Rivera Referring Unavailable ANA MARÍA MCKEON Primary Care Unavaila KANDY Rivera Referring Unavailable GUDELIA COE Attending Unavailable MCKEON ANA MARÍA PEPPER Primary Care Unavaila ble ZEFERINO DESOUZA Attending Unavailable DE YANETH, ANA MARÍA PEPPER Primary Care Unavaila QUINTEN Alberto Attending Unavailable DE YANETH, ANA MARÍA PEPPER Primary Care Unavaila ble MAURA, KANDY Referring Unavailable DE YANETH, ANA MARÍA PEPPER Primary Care Unavaila ble MAURA, KANDY Referring Unavailable DE YANETH, ANA MARÍA PEPPER Primary Care Unavaila ble MAURA, KANDY Attending Unavailable SHAYLEE, QUINTEN Attending Unavailable MAURA, KANDY Referring Unavailable DE YANETH, ANA MARÍA PEPPER Primary Care Unavaila ble ZEFERINO DESOUZA Attending Unavailable DE YANETH, ANA MARÍA PEPPER Primary Care Unavaila ble Schlachter 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, Cristian Primary Care Provide r CRISTIAN TEIXEIRA Attending Unavailable SCHLACHTER, CRISTIAN Referring Unavailable SCHLACHTER, CRISTIAN Primary Care Unavailable SCHLACHTER, CRISTIAN Attending Unavailable SCHLACHTER, CRISTIAN Referring Unavailable SCHLACHTER, CRISTIAN Primary Care Unavailable SCHLACHTER, CRISTIAN Attending Unavailable SCHLACHTER, CRISTIAN Referring Unavailable SCHLACHTER, CRISTIAN Primary Care Unavailable SCHLACHTER, CRISTIAN Attending Unavailable SCHLACHTER, CRISTIAN Referring Unavailable SCHLACHTER, CRISTIAN Primary Care Unavailable Schlachter OPTICS TECHNICAL OFFICER, Cristian Unavailable [phone] Medications Current Medications Medication Drug Class(es) Dates [...] Comment on above: Take [address] [facility] every 6 hours for 7 days. Calcium (4 sources) Phosphate Binder, Calcium CALCIUM ORAL Take by [...] Comment on above: Take by mouth. ibuprofen 800 mg oral tablet (20 sources) Nonsteroidal Anti-inflammatory Drug Start: 02-25-2025 End: 05-26-2025 take 1 tablet by mouth every eight hours ibuprofen 800 MG tablet Indications: Posterior tibial tendinitis of right lower extremity Take 1 tablet (800 mg) by mouth every 8 (eight) hours 270 tablet 02/25/2025 05/26/2025 Active Start: 09-15-2023 End: 11-29-2023 take 1 tablet [...] provided with radiology test) (8 sources) Start: 04-29-2024 End: 04-30-2024 iv contrast (will be provided with radiology [...] up to 7 days. polyethylene glycol 3350 08202 mg powder for oral solution (4 sources) [...] End: 02-26-2024 take 2 tablets by mouth in the morning predniSONE (DELTASONE) 10 mg tablet Take 2 tablets (20 mg total) by mouth in the morning. 0 08/30/2023 02/26/2024 Active take 1 tablet by george th in the morning predniSONE (Deltasone) 10 MG tablet Take 10 mg by mouth in the morning and 10 mg before bedtime. Active End: 04-29-2024 take 1 tablet by mouth once daily predniSONE (DELTASONE) 5 mg tablet Take 5 mg by mouth once daily. 04/29/2024 Discontinued Comment on above: Take 2 tablets by mo ut once daily. pyridostigmine bromide 30 mg oral tablet (20 sources) Start: 08-07-2023 End: 02-25-2025 pyRIDostigmine bromide 30 mg tablet Take 1 tablet by mouth in the morning and 1 tablet at noon and 1 tablet in the evening and 1 tablet before bedtime. 0 08/30/2023 02/26/2024 Active take 1 tablet by george th once daily pyRIDostigmine bromide 30 mg tab Take 30 mg by mouth once daily. Active End: 05-20-2024 take 1 tablet by mouth three times daily pyRIDostigmine bromide 30 mg tablet Take 30 mg by mouth 3 (three) times a day. 05/20/2024 Discontinued Comment on above: Take 1 tablet by george th four times daily. Completed/Discontinued Medications Medication Drug Class(es) Dates [...] surgery and once the morning of surgery. Problems Active Problems Problem Classification Problem Date Documented Date Episodic/Chronic Acquired foot deformities (2 sources) Acquired varus deformity of right ankle; Translations: [Valgus deformity, not elsewhere classified, right ankle] 02-25-2025 Episodic Blindness and vision defects (10 sources) Visual impairment; Translations: [Unspecified visual loss] Onset: 01-20-2024 01-20-2024 Chronic Cancer; other and unspecified primary (4 sources) Malignant tumor of thymus; Translations: [Malignant neoplasm of thymus] 10-29-2023 Chronic Cancer; other and unspecified primary (1 source) Malignant neoplasm of thymus; Translations: [Malignant neoplasm of thymus (HCC)] Onset: 11-26-2024 Chronic Immunizations and screening for infectious disease (5 sources) Encounter for immunization; Translations: [Encounter for screening for human papillomavirus (HPV)] Onset: 12-14-2020 Episodic Other acquired deformities (2 sources) Equinus contracture of the ankle; Translations: [Contracture, right ankle] 02-25-2025 Chronic Other aftercare (1 source) Surgical follow-up; Translations: [Encounter for follow-up examination after completed treatment for conditions other than malignant neoplasm] 09-21-2023 Episodic Other and unspecified benign neoplasm (1 source) Benign neoplasm of thymus; Translations: [Benign neoplasm of thymus] 09-12-2023 Episodic Other connective tissue disease (2 sources) Tendinitis of right posterior tibial tendon; Translations: [Posterior tibial tendinitis, right leg] 02-25-2025 Episodic Other connective tissue disease (2 sources) Pain in right foot; Translations: [Pain in right foot] 02-25-2025 Episodic Other liver diseases (11 sources) Lesion of liver; Translations: [Liver disease, unspecified] Onset: 01-20-2024 08-28-2023 Chronic Other liver diseases (1 source) Liver disease, unspecified; Translations: [Lesion of liver] Onset: 08-28-2023 Chronic Other nervous system disorders (20 sources) Myasthenia gravis; Translations: [Myasthenia gravis without (acute) exacerbation] Onset: 06-13-2023 08-24-2023 Chronic Other nervous system disorders (20 sources) Myasthenia gravis without exacerbation; Translations: [Myasthenia gravis without (acute) exacerbation] 09-14-2023 Chronic Other nervous system disorders (2 sources) Myasthenia gravis without (acute) exacerbation; Translations: [Myasthenia gravis without exacerbation (HCC)] Onset: 09-05-2023 Chronic Other nervous system disorders (2 sources) Difficulty walking; Translations: [Difficulty in walking, not elsewhere classified] 02-25-2025 Chronic Other non-traumatic joint disorders (2 sources) Acute ankle pain; Translations: [Pain in right ankle and joints of right foot] 02-11-2025 Episodic Other non-traumatic joint disorders (1 source) Pain in right ankle and joints of right foot; Translations: [Pain in right ankle and joints of right foot] Onset: 02-11-2025 Episodic Other non-traumatic joint disorders (1 source) Ankle pain Onset: 02-11-2025 Episodic Other non-traumatic joint disorders (2 sources) Instability of joint of right ankle; Translations: [Other instability, right ankle] 02-25-2025 Episodic Other upper respiratory disease (2 sources) Mediastinal mass; Translations: [Other diseases of mediastinum, not elsewhere classified] 08-28-2023 Episodic Other upper respiratory disease (1 source) Other diseases of mediastinum, not elsewhere classified; Translations: [Mediastinal mass] Onset: 08-28-2023 Episodic Residual codes; unclassified (2 sources) Postmenopausal state; Translations: [Asymptomatic menopausal state] 04-14-2024 Episodic Thyroid disorders (20 sources) Multinodular goiter; Translations: [Nontoxic multinodular goiter] Onset: 08-18-2023 08-18-2023 Chronic Unclassified (1 source) Annual Exam Onset: 09-16-2024 Past or Other Problems Problem Classification Problem Date Documented Date Episodic/Chronic Mood disorders (6 sources) Mood disorders Onset: 02-04-2020 Resolved: 02-11-2025 02-04-2020 Neoplasms of unspecified nature or uncertain behavior (20 sources) Thymoma; Translations: [Neoplasm of unspecified behavior of other specified sites] Onset: 09-13-2023 09-14-2023 Episodic Other nervous system disorders (20 sources) Postoperative pain ; Translations: [Other acute postprocedural pain] Onset: 09-13-2023 09-14-2023 Episodic Other screening for suspected conditions (not mental disorders or infectious disease) (20 sources) Encounter for screening for malignant neoplasm of colon; Translations: [Encounter for screening mammogram for malignant neoplasm of breast] Onset: 12-07-2020 Episodic Other upper respiratory disease (1 source) Nasal congestion Onset: 05-20-2024 Episodic Other upper respiratory infections (2 sources) Acute maxillary sinusitis; Translations: [Acute maxillary sinusitis, unspecified] Onset: 05-20-2024 05-20-2024 Episodic Residual codes; unclassified (1 source) Acquired [...] of care] Onset: 09-13-2023 09-14-2023 Episodic Unclassified (6 sources) Onset: 02-04-2020 Resolved: 09-16-2024 02-04-2020 Results Test Name Value Interpretation Reference Range Facility XR Foot - right 3 [facility] Result: AP, medial oblique, lateral views are weight-bearing. Slightly decreased calcaneal inclination and increased talar declination. Enthesophyte at the insertion of the Achilles tendon and plantar fascia. First ray elevation. Approximately 30 percent talar head uncoverage. No fractures or dislocations noted. Joints appear well-maintained. [facility] Radiology Study observation (narrative) [facility] CNOVon 11-26-2024 CNOV Office Visit (THORMN ) ----- SUMITMARNIE Ange ([id number]) 1970 F Date Time Provider Department 11/26/24 2:00 PM GUDELIA COE [facility] During your visit today, we recorded the following information about you: Temperature Pulse Respiration Blood pressure 98.2 degrees 79/minute 14/minute 132/53 Weight Height 100.4 kg 1.6 m Gudelia Coe, QUALITY CONTROL ENGINEERING TECHNICIAN.STOCK PREPARATION OPERATOR 11/26/2024 3:12 PM Signed Part of this note was copied from previous note, all content has been individually reviewed, updated as necessary, and thoroughly reviewed. [facility] - OUTPATIENT THORACIC SURGERY CLINIC NOTE PT NAME: Marnie Ange Arana [facility] NO: [id number] THORACIC SURGEON: Jasiel Turner M.D. DATE OF SERVICE: 11/26/2024 PRINCIPAL DX: -T1aN0 stage IIa Thymoma, (+) [...] been determined by the performing laboratory within [facility]?s [facility] (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 Preoperative Hospital Course: Presented with blurry vision in the evening as well as intermittent double vision, symptoms began 05/2023. 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 Normal [facility] Office Visit (NEST ) ----- MARNIE ARANA ([id number]) 1970 F Date Time Provider Department 11/26/24 11:00 AM QUINTEN RUIZ During your visit today, we recorded the following information about you: Pulse Blood pressure Weight 65/minute 135/70 100.7 kg Quinten Ruiz MD 11/26/2024 12:51 PM Signed I saw Marnie Arana at the [facility] on 04/29/24 in follow up [...] plan was to continuing to wean prednisone until completely off. Since their last visit: Will be retiring at the end of this yerar. Will still work 13 hr week next year. 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 Going to [employer] twice! Doing very well. Completed steroids end of Aug. Also stopped pyridostigmine. Symptom free. ROS: Pertinent positive and negative systems reviewed in HPI. Medications: Current Outpatient Medications Medication Sig CALCIUM ORAL Take by mouth. pyRIDostigmine bromide 30 mg tab Take 30 mg by mouth once daily. (Patient not taking: Reported on 05/16/2024) ibuprofen (MOTRIN) 600 mg tablet Take 1 tablet by mouth every 6 hours as needed for pain. (Patient not taking: Reported on 04/29/2024) cholecalciferol, vitamin D3, (VITAMIN D3 ORAL) Take 2,000 Units by mouth once daily. No current facility-administered medications for this visit. Allergies: ALLERGIES No Known Allergies Exam: 11/26/24 1058 BP: 135/70 Pulse: 65 SpO2: 99% Weight: 100.7 kg (222 lb 0.1 oz) Gen: appears stated age, no acute distress [...] ocular MG s/p thymectomy and adjuvant radiation. Asymptomatic with normal examination off all therapy. Plan: Continue regular follow up with thoracic surgery for cancer monitoring No need for any MG specific therapy Contact my office if symptoms recur RV in 6 months Quinten Ruiz MD [facility] [address] [place] [address] I spent a total of 25 minutes on the date of the service which included preparing to see the patient, [id number] patient care, completing clinical documentation, obtaining and/or reviewing separately obtained history, performing a medically appropriate examination, counseling and educating the patient/family/caregiver. Referring Provider: KANDY VALLECILLO [[id number]] Allergies As of Date: 11/26/2024 (No Known Allergies) Date Reviewed: 11/26/2024 Reviewed by: Vonda Carrillo - Fully Assessed Reason for Visit: Follow Up [171] Primary Visit Diagnosis:Myasthenia gravis without exacerbation (HCC) [G70.00] Order(s):PROVIDER ORDERED FOLLOW UP [[id number]] Order #: [id number]: 1 FUTURE Prescriptions as of 11/26/2024 - CALCIUM ORAL Take by mouth. - pyRIDostigmine bromide 30 mg tab Take 30 mg by mouth once daily. - ibuprofen (MOTRIN) 600 mg tablet Take 1 tablet by mouth every 6 hours as needed for pain. - cholecalciferol, vitamin D3, (VITAMIN D3 ORAL) Take 2,000 Units by mouth once daily. Problem List As Of Date 11/26/2024 Noted Resolved Multiple thyroid nodules [E04.2] 08/18/2023 Abnormal results of thyroid function studies [R*08/18/2023 Thymoma [D49.89] 09/13/2023 Postoperative pain [G89.18] 09/13/2023 Summary [Z91.199] 09/13/2023 Myasthenia gravis without exacerbation (HCC) [G* Encounter Status:Closed by QUINTEN RUIZ on 11/26/[address] [facility] [address] CHEST W IVCONon CT CHEST W IVCON * * *Final Report* * * DATE OF EXAM: Nov 26 2024 1:29PM [facility] 0539 - CT CHEST W IVCON / PROCEDURE REASON: Malignant neoplasm of thymus (HCC) * * * * Physician Interpretation * * * * EXAMINATION: CHEST CT WITH CONTRAST CLINICAL HISTORY: T1aN0 stage IIa Thymoma, (+) margin. Status [...] Dose-length product (DLP) for this visit = 448 mGy*cm CT Dose Reduction Employed: No dose reduction techniques were required Comparison: 04/29/2024 RESULT: Limitations: None. Lines, tubes, and devices: None. Lung parenchyma and airways: BRENT limited medial subpleural postradiation fibrosis. Few stable small nodules (e.g. RUL 4-5 mm part solid nodule, image 46). Pleural space: No effusion or nodular thickening. Lower neck, lymph nodes, and mediastinum: Post resection of anterior mediastinal mass, no discrete nodule or nodular thickening to suggest recurrence. No thoracic lymph node enlargement. Heart, pericardium, and thoracic vessels: Mild left atrial enlargement. No distinct coronary calcification. No pericardial effusion Bones and soft tissues: No destructive osseous Upper abdomen: Stable hepatic hemangioma, previously characterized on 08/28/2023 MRI. Hepatic steatosis Localizer images: No additional findings. IMPRESSION: Post resection of anterior mediastinal mass with medial left upper lobe postradiation fibrosis; no compelling CT evidence of recurrence Secretary Book Keeper: PSCB Transcribe Date/Time: Nov 26 2024 1:39P Dictated by : ALYSA DELGADO MD This examination was interpreted and the report reviewed and electronically signed by: ALYSA DELGADO MD on Nov 26 2024 1:49PM EST [id number] Normal [facility] CBC AND AUTO DIFFon 10-11-19 25 ABSOLUTE BASOPHIL 0.0 X10E9/L Normal 0.0-0.2 [facility] Comment on above: Performed By: #### Elder VARGAS CMP, [id number] #### [facility] ([id number]) [address], [address] [place] [address] ABSOLUTE NEUTROPHIL 4.2 X10E9/L Normal 1.5-6.6 [facility] Comment on above: Performed By: #### Elder VARGAS CMP, 93805-2 #### [facility] ([id number]) [address] [place] [address] Basophils/100 WBC (Bld) 0.6 % Normal [facility] Comment on above: Performed By: #### Elder VARGAS CMP, 15167-6 #### [facility] ([id number]) [address] [place] [address] Eosinophils (Bld) [#/Vol] 0.4 10*3/uL Normal 0.0-0.4 [facility] Comment on above: Performed By: #### Elder VARGAS CMP, 32177-9 #### [facility] ([id number]) [address] [place] [address] Eosinophils/100 WBC (Bld) 6.3 % Normal [facility] Comment on above: Performed By: #### Elder VARGAS CMP, 94983-9 #### [facility] ([id number]) [address], [address] [place] [address] Erythrocyte distribution width (RBC) [Ratio] 13.8 % Normal 11.5-15.0 [facility] Comment on above: Performed By: #### Edler VARGAS CMP, 15397-4 #### [facility] ([id number]) [address], [address] [place] [address] Hematocrit (Bld) [Volume fraction] 39.1 % Normal 35-47 [facility] Comment on above: Performed By: #### Elder VARGAS CMP, 62697-4 #### [facility] ([id number]) [address] [place] [address] Hemoglobin (Bld) [Mass/Vol] 13.2 g/dL Normal 11.7-15.5 [facility] Comment on above: Performed By: #### Elder VARGAS CMP, 85582-7 #### [facility] ([id number]) [address] [place] [address] Lymphocytes (Bld) [#/Vol] 1.1 10*3/uL Normal 1.0-3.5 [facility] Comment on above: Performed By: #### Elder VARGAS CMP, 36377-3 #### [facility] ([id number]) [address], [address] [place] [address] Lymphocytes/100 WBC (Bld) 17.2 % Normal [facility] Comment on above: Performed By: #### Elder VARGAS CMP, 17545-2 #### [facility] ([id number]) [address], [address] [place] [address] MCH (RBC) [Entitic mass] 30.4 pg Normal 27-34 [facility] Comment on above: Performed By: #### Elder VARGAS CMP, 76321-9 #### [facility] ([id number]) [address], [address] [place] [address] MCHC (RBC) [Mass/Vol] 33.8 g/dL Normal 32-36 [facility] Comment on above: Performed By: #### Elder VARGAS CMP, 80465-7 #### [facility] ([id number]) [address] [place] [address] MCV (RBC) [Entitic vol] 90 fL Normal 80-100 [facility] Comment on above: Performed By: #### Elder VARGAS CMP, 07425-6 #### [facility] ([id number]) [address] [place] [address] Monocytes (Bld) [#/Vol] 0.5 10*3/uL Normal 0-0.9 [facility] Comment on above: Performed By: #### Elder VARGAS CMP, 22925-6 #### [facility] ([id number]) [address] [place] [address] Monocytes/100 WBC (Bld) 7.4 % Normal [facility] Comment on above: Performed By: #### Elder VARGAS CMP, 82910-1 #### [facility] ([id number]) [address] [place] [address] Neutrophils/100 WBC (Bld) 68.5 % Normal [facility] Comment on above: Performed By: #### Elder VARGAS CMP, 64936-2 #### [facility] ([id number]) [address], [address] [place] [address] Platelet mean volume (Bld) [Entitic vol] 8.9 fL Normal 7-12 [facility] Comment on above: Performed By: #### Elder VARGAS CMP, 72937-6 #### [facility] ([id number]) [address], [address] [place] [address] Platelets (Bld) [#/Vol] 273 10*3/uL Normal 150-450 [facility] Comment on above: Performed By: #### C BCA, CMP, 60822-5 #### [facility] ([id number]) [address], [address] [place] [address] RBC COUNT 4.36 X10E12/L Normal 3.80-5.20 [facility] Comment on above: Performed By: #### C BCA, CMP, 19278-2 #### [facility] ([id number]) [address] [place] [address] WBC (Bld) [#/Vol] 6.2 10*3/uL Normal 4.0-11.0 [facility] Comment on above: Performed By: #### C BCA, CMP, 09056-7 #### [facility] ([id number]) [address], [address] [place] [address] COMPREHENSIVE METABOLIC PANE Ton 10-10-2024 Albumin [Mass/Vol] 4.1 g/dL Normal 3.2-5.3 [facility] Comment on above: Performed By: #### C BCA, CMP, 61392-4 #### [facility] ([id number]) [address] [place] [address] ALP [Catalytic activity/Vol] 64 U/L Normal 39-130 [facility] Comment on above: Performed By: #### C BCA, CMP, 43479-5 #### [facility] ([id number]) [address] [place] [address] ALT [Catalytic activity/Vol] 17 U/L Normal 0-31 [facility] Comment on above: Performed By: #### C BCA, CMP, 95827-6 #### [facility] ([id number]) [address] [place] [address] Anion gap [Moles/Vol] 9 mmol/L Normal 5-15 [facility] Comment on above: Performed By: #### C BCA, CMP, 50168-6 #### [facility] ([id number]) [address] [place] [address] AST [Catalytic activity/Vol] 18 U/L Normal 0-41 [facility] Comment on above: Performed By: #### C BCA, CMP, 53578-6 #### [facility] ([id number]) [address] [place] [address] Bilirubin [Mass/Vol] 0.4 mg/dL Normal 0.3-1.2 [facility] Comment on above: Performed By: #### Elder BCA, CMP, 34587-4 #### [facility] ([id number]) [address], [address] [place] [address] Calcium [Mass/Vol] 9.0 mg/dL Normal 8.5-10.5 [facility] Comment on above: Performed By: #### C BCA, CMP, 05525-4 #### [facility] ([id number]) [address] [place] [address] Chloride [Moles/Vol] 104 mmol/L Normal 98-109 [facility] Comment on above: Performed By: #### C BCA, CMP, 61345-8 #### [facility] ([id number]) [address] [place] [address] CO2 [Moles/Vol] 25 mmol/L Normal 22-32 [facility] Comment on above: Performed By: #### C BCA, CMP, 72941-6 #### [facility] ([id number]) [address], [address] [place] [address] Creatinine [Mass/Vol] 0.75 mg/dL Normal 0.40-1.00 [facility] Comment on above: Result Comment: METH OD TRACEABLE TO IDMS STANDARD Performed By: #### C LUKE VARGAS, 10119-5 #### [facility] ([id number]) [address], [address] [place] [address] eGFR (CKD-EPI) NON-RACE DEPENDENT >90 Normal >59 [facility] Comment on above: Result Comment: Reported eGFR is based on the CKD-EPI 2020 equation that does not use a race coefficient. Performed By: #### Elder VARGAS CMP, 67240-9 #### [facility] ([id number]) [address], [address] [place] [address] Glucose [Mass/Vol] 122 mg/dL High 65-99 [facility] Comment on above: Performed By: #### Elder VARGAS CMP, 62451-2 #### [facility] ([id number]) [address], [address] [place] [address] Potassium [Moles/Vol] 4.2 mmol/L Normal 3.5-5.0 [facility] Comment on above: Performed By: #### Elder VARGAS CMP, 48811-0 #### [facility] ([id number]) [address], [address] [place] [address] Protein [Mass/Vol] 6.7 g/dL Normal 6.0-8.0 [facility] Comment on above: Performed By: #### Elder VARGAS CMP, 41644-9 #### [facility] ([id number]) [address], [address] [place] [address] Sodium [Moles/Vol] 138 mmol/L Normal 134-146 [facility] Comment on above: Performed By: #### Elder VARGAS CMP, 94459-5 #### [facility] ([id number]) [address], [address] [place] [address] Urea nitrogen [Mass/Vol] 17 mg/dL Normal 5-23 [facility] Comment on above: Performed By: #### Elder VARGAS CMP, 23514-9 #### [facility] ([id number]) [address], [facility] [address] [place] [address] Lipid 1996 panelon 5 Cholesterol [Mass/Vol] 168 mg/dL Normal 150-200 [facility] Comment on above: Performed By: #### Eledr VARGAS CMP, 15609-9 #### [facility] ([id number]) [address], [facility] [address] [place] [address] Cholesterol in HDL [Mass/Vol] 32 mg/dL Low >39 [facility] Comment on above: Result Comment: HDL <40 mg/dL - High Risk HDL > or = 40mg/dL- Desirable HDL >60 mg/dL - Negative Risk Performed By: #### Elder VARGAS CMP, 14123-3 #### [facility] ([id number]) [address], [facility] [address] [place] [address] Cholesterol in LDL [Mass/Vol] 95 mg/dL Normal <130 [facility] Comment on above: Result Comment: LDL <100 mg/dL - Desirable LDL >160 mg/dL - High Risk Performed By: #### Elder VARGAS, LUKE, 92756-0 #### [facility] ([id number]) [address], [address] [place] [address] Cholesterol in VLDL [Mass/Vol] 41 mg/dL High 0-30 [facility] Comment on above: Performed By: #### Elder VARGAS CMP, 24153-9 #### [facility] ([id number]) [address], [address] [place] [address] CHOLESTEROL:HDL 5.3 High 1.0-5.0 [facility] Comment on above: Performed By: #### C BCA, CMP, 52487-0 #### [facility] ([id number]) [address], [address] [place] [address] Triglyceride [Mass/Vol] 206 mg/dL High 27-150 [facility] Comment on above: Performed By: #### C BCA, CMP, 28885-2 #### [facility] ([id number]) [address], [address] [place] [address] CNOVon 05-16-2024 CNOV Office Visit (RADTSA ) ----- MARNIE ARANA ([id number]) 1970 F Date Time Provider Department 05/16/24 10:30 AM ZEFERINO DESOUZA During your visit today, we recorded the following information about you: Temperature Pulse Respiration Blood pressure 97.4 degrees 63/minute 16/minute 122/87 Weight 105.1 kg Zeferino Desouza MD 06/03/2024 4:39 AM Addendum Radiation Oncology - Follow Up Note PATIENT NAME: Marnie Arana PATIENT DIAGNOSIS/PATIENT IDENTIFICATION: Ms. Arana is a 53-year-old woman diagnosed with Stage I, [id number] (AJCC)/Stage IIa ([place]) thymoma (Type AB) status [...] 11/30/2023 (5400 cGy delivered in 27 fractions). INTERVAL HISTORY: Ms. Arana returns to clinic today for routine follow-up approximately six months after the completion of her radiation treatments and five months since her last visit on 01/03/2024. In the interim, she had posttreatment imaging with CT of the chest on 04/29/2024 showed expected post treatment changes in the mediastinum with no evidence of disease recurrence/residual disease. Today she reports doing well and denies any pain/discomfort in the treatment area and reports no skin irritation or breakdown. She reports no change in her voice or any shortness of breath or cough or chest pain/discomfort. She is able to swallow well without choking sensation and denies any dry mouth or altered taste. She endorses good energy appetite and hydration with stable weight as she continues to work. She also notes improvement in her vision and had stopped using the pyridostigmine. ALLERGIES ALLERGIES No Known Allergies MEDICATIONS: Current Outpatient Medications: predniSONE (DELTASONE) 1 mg tablet cholecalciferol, vitamin D3, (VITAMIN D3 ORAL) CALCIUM ORAL pyRIDostigmine bromide 30 mg tab ibuprofen (MOTRIN) 600 mg tablet PHYSICAL EXAM: GENERAL: middle-aged woman sitting in chair in no acute distress. VITALS: BP 122/87 Pulse 63 Temp 97.4 Resp 16 Wt 231 lb 11.3 oz (105.1kg) SpO2 96% KPS: 90 HEENT: NC/AT, anicteric sclera HEART: S1S2 LUNGS: non-labored breathing ABDOMEN: soft MUSCULOSKELETAL: no peripheral edema, moves all extremities. NEURO: no focal deficit; AANDO X3. RADIOLOGIC DATA: CT Chest (04/29/2024) IMPRESSION: 1. Status post resection of anterior mediastinal mass with no evidence of recurrent/residual disease. 2. New evolving postradiation changes in the medial left upper lobe. 3. Stable 4 mm right upper lobe lung nodule. No new or enlarging pulmonary nodule. Continued attention on imaging surveillance is recommended. 4. No thoracic lymphadenopathy. ASSESSMENT AND PLAN: Ms. Arana is a 53-year-old woman diagnosed with Stage I, [id number] (AJCC)/Stage IIa ([place]) thymoma (Type AB) status [...] cGy delivered in 27 fractions). Ms. Arana is doing well clinically approximately 6 months out from the completion of her postoperative radiation treatments to the mediastinum with no significant residual sequela at this time. She is without radiographic concern for residual or recurrent disease with CT of the chest from 04/29/2024 showing expected posttreatment changes. She will continue her follow-up with the thoracic surgery team as scheduled including surveillance imaging and I will plan to see her back in approximately 6 months for follow-up. The patient is aware to contact the clinic in the interim should any questions or concerns arise. Thank you for allowing us to participate in the care of this patient. Signed by: Zeferino Desouza MD I spent a total of 20 minutes on the date of the service which included preparing to see the patient, rplg-ap-hawf patient care, and counseling and educating the patient/family/caregiver. This document has been created with the use of voice recognition technology. It may contain inaccuracies, misspellings, inaccurate syntax or inappropriate word context that are a result of the inadequacies/shortcomings of said technology/so (more content not included)... Normal [facility] CNOVon 04-29-2024 CNOV Office Visit (NENMMN ) ----- SUMITMARNIE ([id number]) 1970 F Date Time Provider Department 04/29/24 1:00 PM QUINTEN RUIZ NENMMN During your visit today, we recorded the following information about you: Pulse Blood pressure Weight Height 86/minute 122/79 103.6 kg 1.6 m Quinten Ruiz MD 04/29/2024 1:58 PM Signed I saw Marnie Arana at the [facility] on 04/29/24 in follow up for [...] visit: Two kids in college, one in [place] (will graduate in six weeks) and 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 Will have another CT scan x 6 [...] in ~ 5 months Quinten Ruiz MD [facility] [address] [place] [address] I spent a total of 25 minutes on the date of the service which included preparing to see the patient, qycw-gz-cgdx patient care, completing clinical documentation, obtaining and/or [...] mg/day - (more content not included)... Normal [facility] CNOV Office Visit (THORMN ) ----- MARNIE ARANA ([id number]) 1970 F Date Time Provider Department 04/29/24 11:00 AM KANDY VALLECILLO During your visit today, we recorded the following information about you: Temperature Pulse Respiration Blood pressure 97.6 degrees 80/minute 14/minute 162/78 Weight Height 103.6 kg 1.6 m Kandy Vallecillo APRN.STOCK PREPARATION OPERATOR 04/29/2024 1:03 PM Signed Part of this note was copied from previous note, all content has been individually reviewed, updated as necessary, and thoroughly reviewed. [facility] - OUTPATIENT THORACIC SURGERY CLINIC NOTE PT NAME: Marnie Arana [facility] NO: [id number] THORACIC SURGEON: Jasiel Turner M.D. DATE OF [...] been determined by the performing laboratory within [facility]ology and Laboratory Medicine [facility] ([facility], [facility], [facility], [facility], [facility], [facility], or [facility]) in a manner consistent with CLIA [...] vision, symptoms began 05/2023. 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 Normal [facility] CT CHEST W IVCONon CT CHEST W IVCON * * *Final Report* * * DATE OF EXAM: Apr 29 2024 10:13AM [facility] 0539 - CT CHEST W IVCON / [...] surveillance is recommended. 4. No thoracic lymphadenopathy. Secretary Book Keeper: JAIME Transcribe Date/Time: Apr 29 2024 11:10A Dictated by : AMADOU SHARPE MD This examination was interpreted and the report reviewed and electronically signed by: JAYSHREE IRIZARRY MD on Apr 29 2024 12:54PM EST [id number] Normal [facility] CT Chest W contrast Festus IMPRESSION: 1. Status post resection of anterior mediastinal mass with no evidence of recurrent/residual disease. 2. New evolving postradiation changes in the medial left upper lobe. 3. Stable 4 mm right upper lobe lung nodule. No new or enlarging pulmonary nodule. Continued attention on imaging surveillance is recommended. 4. No thoracic lymphadenopathy. Secretary Book Keeper: JAIME Transcribe Date/Time: Apr 29 2024 11:10A Dictated by : AMADOU SHARPE MD This examination was interpreted and the report reviewed and electronically signed by: JAYSHREE IRIZARRY MD on Apr 29 2024 12:54PM [facility] DIVISION OF RADIOLOGY * * *Final Report* * * DATE OF EXAM: Apr 29 2024 10:13AM [facility] 0539 - CT CHEST W IVCON / [...] No additional findings. DIVISION OF RADIOLOGY Provider, [facility] - 04/29/2024 * * *Final Report* * * DATE OF EXAM: Apr 29 2024 10:13AM [facility] 0539 - CT CHEST W IVCON / [...] surveillance is recommended. 4. No thoracic lymphadenopathy. Secretary Book Keeper: PSCB Transcribe Date/Time: Apr 29 2024 11:10A Dictated by : AMADOU SHARPE MD This examination was interpreted and the report reviewed and electronically signed by: JAYSHREE IRIZARRY MD on Apr 29 2024 12:54PM EST [facility] Radiology Study observation (narrative) [facility] CT Chest W contrast IVOrdere d By: Ccf Provider on 04-29-2024 [facility] IGP,APTIMA HPV,AGE GDLNon AGE GDLN ACOG TESTING Note . [facility] Comment on above: TESTS RESULT FLAG UN ITS REF RANGE LAB Clinician Provided Cytology Information Source.............Vagina No. of containers..01 ThinPrep Vial Age Algo ACOG Laisha... 30- 01 FLAG LEGEND: L-Low Normal,H-High Normal,LL-Alert Low,HH-Alert High <-Panic Low,>-Panic High,A-Abnormal,AA-Critical Abnormal Performed at: 01 =[address] [address] Sherri Nava MD, HPV APTIMA Negative Negative [facility] Comment on above: This nucleic acid am plification test detects fourteen high- risk HPV types (16,18,31,33,35,39,45,51,52,56,58,59,66,68) without differentiation. Performed at: =[address] [id number] [employer] Truck Driver: Sherri Nava MD, Phone: [phone] Performed at: [address] [id number] [employer] Driver: Sherri Nava MD, Phone: [phone] IGP, APTIMA HPV, RFX 16/18,45 Note . [facility] Comment on above: TESTS RESULT FLAG UN ITS REF RANGE LAB DIAGNOSIS: 02 NEGATIVE FOR INTRAEPITHELIAL LESION OR MALIGNANCY. Specimen adequacy: 02 Satisfactory for evaluation. No endocervical cells are present. This is consistent with a history of hysterectomy. Performed by: 02 Kashmir Giles, Cnc Supervisor ([facility]) . 02 Note: Note 02 The Pap [...] Low,>-Panic High,A-Abnormal,AA-Critical Abnormal Performed at: 02 WB [facility] [address] [facility] [place] [address] Sherri Nava MD, SPATULA-ALONE VAGINA [facility] 02-06-2024 CNOV Office Visit (NENMMN ) ----- MARNIE ARANA ([id number]) 1970 F Date Time Provider Department 02/06/24 11:30 AM QUINTEN RUIZ During your visit today, we recorded the following information about you: Pulse Blood pressure Weight Height 63/minute 141/76 101.5 kg 1.6 m Quinten Ruiz MD 02/08/2024 9:57 AM Signed I saw Marnie Arana at the [facility] on 02/06/24 in follow up [...] 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 ROS: Pertinent [...] RV in 2-3 months Quinten Ruiz MD [facility] [address] [place] [address] I spent a total of 30 minutes on the date of the service which included preparing to see the patient, qpfj-uo-syyc patient care, completing clinical documentation, obtaining and/or [...] Signed Our plan: Continue the pyridostigmine Aug : [...] every 6 (more content not included)... Normal [facility] CNOVon 01-03-2024 CNOV Office Visit (RADTSA ) ----- MARNIE ARANA ([id number]) 1970 F Date Time Provider Department 01/03/24 [...] a 53-year-old woman diagnosed with Stage I, [id number] (AJCC)/Stage IIa ([place]) thymoma (Type AB) status [...] for Encounter Date Provider Department Center 01/03/2024 [id number]-DRPNSZEFERINO DESOUZA Encounter Status:Closed by ZEFERINO DESOUZA on 7/8/24 Normal [facility] 12-18-2023 CNPN Telephone (RADTSA) ----- SUMITMARNIE LEVY ([id number]) 1970 F Date Time Provider Department 12/18/23 [...] Status:Closed by DILCIA PRICE on 12/18/23 Normal [facility] XR Chest PA and Lateralon IMPRESSION: No acute disease identified in the lungs or mediastinum. Secretary Book Keeper: JAIME Transcribe Date/Time: Oct 29 2023 4:22P Dictated by : YOANDY POMPA MD This examination was interpreted and the report reviewed and electronically signed by: YOANDY POMPA MD on Oct 29 2023 4:24PM [facility] DIVISION OF RADIOLOGY * * *Final Report* [...] disease identified in the lungs or mediastinum. Secretary Book Keeper: JAIME Transcribe Date/Time: Oct 29 2023 4:22P Dictated by : YOANDY POMPA MD This examination was interpreted and the report reviewed and electronically signed by: YOANDY POMPA MD on Oct 29 2023 4:24PM EST [facility] Radiology Study observation (narrative) [facility] XR Chest PA and LateralOrder ed By: Ccf Provider on 10-29-2023 [facility] CT Chest W contrast Festus IMPRESSION: Resection [...] any questions regarding this interpretation, please call [phone]. If you are unable to reach us at the number above, please feel free to contact [facility] eRadiology at [phone]. DIVISION OF RADIOLOGY * * *Final Report* * * DATE OF EXAM: Oct 16 2023 12:58PM [facility] 0539 - CT CHEST W IVCON / [...] characterized on prior MRI. Small hiatal hernia. Manager Estate (topogram) images: Unremarkable. DIVISION OF RADIOLOGY Provider, [facility] - 10/17/2023 * * *Final Report* * * DATE OF EXAM: Oct 16 2023 12:58PM [facility] 0539 - CT CHEST W IVCON / [...] characterized on prior MRI. Small hiatal hernia. Manager Estate (topogram) images: Unremarkable. IMPRESSION IMPRESSION: Resection of [...] any questions regarding this interpretation, please call [phone]. If you are unable to reach us at the number above, please feel free to contact [facility] eRadiology at [phone]. [facility] CT Chest W contrast IVOrdere d By: Ccf Provider on 10-17-2023 [facility] CT Chest W contrast Festus Radiology Study observation (narrative) [facility] XR Chest PA and Lateralon [facility] XR Chest PA and Lateralon [facility] ALLIED HEALTHon 08-28-2023 ALLIED HEALTH HNO ID: [id number] Author: SHOBHA HUNTLEY RT(R) Service: Radiology Author [...] PATIENT PRESENTS WITH AN IMPLANTABLE OR ATTACHED FILENET P8 DEVELOPER: No ALLERGIES: Reviewed and unchanged CONTRAST ALLERGY: NO. EXAM: MRI - CONTRAST TYPE: GROUP II PERIPHERAL IV DATA: Ambulatory: A peripheral IV was started in the Right with a Angio cath: 24 gauge. RADIOLOGY DEPARTMENT: MR; Exam(s) Completed: Body: Liver (routine) SIGNATURE: RT Jonathan(R), RT Angelica(R) PATIENT NAME: Marnie Arana DATE: August 28, 2023 TIME: 10:29 AM [facility] MR Liver WO and W contrast I Von 08-28-2023 [facility] MRI LIVER WO/W IVCONon 08-28 MRI LIVER WO/W IVCON * * *Final Report* * * DATE OF EXAM: Aug 28 2023 10:52AM [facility] 0727 - MRI LIVER WO/W IVCON [...] Four cavernous hepatic hemangiomas. No hepatic metastasis. Secretary Book Keeper: [facility] Transcribe Date/Time: Aug 28 2023 10:59A Dictated by : KUSUM DICK MD This examination was interpreted and the report reviewed and electronically signed by: KUSUM DICK MD on Aug 28 2023 11:22AM EST [id number] [facility] Outside Colonoscopyon 2020 Outside Colonoscopy [id number]:12 7 Normal [facility] Consent for Procedure/Surger yon 01-14-2021 Consent for Procedure/Surgery [id number]:12 7 Normal [facility] January 14, 2021 Obdulio Monae DO [address] [place] [address] Re: MARNIE ARANA Date of : 1970 Thank you for your referral of Marnie Arana who was seen on consultation for screening colonoscopy. I have enclosed my consultation note for your review. I will be happy to follow Marnie. Sincerely, Odell Johnson MD General Surgery [facility] Ambulatory Clinical Summaryo n 01-13-2021 Ambulatory Clinical Summary {[id number]}C [id number] [facility] Immunization Recordson 01-13 Immunization Records [id number]:12 7 Normal [facility] Patient Educationon 01-14-20 Patient Education Colonoscopy [...] ? Medicines taken, including vitamins, herbs, eyedrops, bcdj-oyi-nvurhrt medicines, and creams. ? Use of steroids [...] medicines have worn off. ? Only take sesq-enl-kkagium or prescription medicines for pain, discomfort, or [...] Document Reviewed: 02/04/2009 ExitCare? Patient Information ?2013 [employer]. [facility] MG MAMM SCREEN 3D GLORIA CADon 01-06-2021 MG MAMM SCREEN 3D GLORIA CAD Patient: MARNIE ARANA Exam Date: 01/06/2021 : 1970 Gender:F Ordering : DR BHAVNA GOMEZ . Admission #: [id number] Family : Order #: [id number] CLICK HERE TO VIEW EXAM RADIOLOGY REPORT [...] meningioma cancer at age 58. LOCATION: [facility] BREAST COMPOSITION: Scattered areas fibroglandular density. [...] Crane M.D. on 01/06/2021 at 15:04 Normal [facility] XR DEXA BONE DENSITYon 01-06 XR DEXA BONE DENSITY EXAMINATION: XR DEXA BONE DENSITY HISTORY: Menopause present COMPARISON: DEXA [...] by: AMARI CRANE Date: 2021-01-06 11:04 Normal [facility] Physician Referralon 021 Physician Referral [id number]:12 7 [facility] PAP ACOG PANEL 2: 30 to 65on 12-10-2020 . . Normal [facility] Comment on above: Result Comment: Perf ormed at: WB Performed By: #### 4 [id number] #### [facility] [address] [place] [address] Andrew Vesta Age Gdln ACOG Testing 30-65 Normal [facility] Comment on above: Performed By: #### 4 [id number] #### [facility] [address] [place] [address] Andrewrainer Waddellen DIAGNOSIS: Comment Normal [facility] Comment on above: Result Comment: NEGA TIVE FOR INTRAEPITHELIAL LESION OR MALIGNANCY. CELLULAR CHANGES ASSOCIATED WITH ATROPHY ARE PRESENT. Performed at: WB Performed By: #### 4 [id number] #### [facility] [address] [place] [address] Andrew Lemons HPV Aptima Negative Normal Negative [facility] Comment on above: Result Comment: This nucleic acid amplification test detects fourteen high-risk HPV types (16,18,31,33,35,39,45,51,52,56,58,59,66,68) without differentiation. Performed at: =G Performed By: #### 4 [id number] #### [facility] [address] [place] [address] Andrew Lemons Methodology: Comment Normal [facility] Comment on above: Result Comment: This liquid based ThinPrep(R) pap test was screened with the use of an image guided system. Performed at: WB Performed By: #### 4 [id number] #### [facility] [address] [place] [address] Andrew Lemons Note: Comment Normal [facility] Comment on above: Result Comment: The Pap smear is a screening test designed to aid in the detection of premalignant and malignant conditions of the uterine cervix. It is not a diagnostic procedure and should not be used as the sole means of detecting cervical cancer. Both false-positive and false-negative reports do occur. . Performed at: WB Performed By: #### 4 [id number] #### [facility] [address] [place] [address] Andrew Lemons Performed by: Comment Normal [facility] Comment on above: Result Comment: Namita Newby, Cnc Supervisor (ASCP) Performed at: WB Performed By: #### 4 [id number] #### [facility] [address] [place], [place] [address] Andrew Lemons Specimen adequacy: Comment Normal [facility] Comment on above: Result Comment: Sati sfactory for evaluation. Performed at: WB Performed By: #### 4 [id number] #### [facility] [address] [place], [place] [address] Andrew Lemons Vital Signs Date Time Vital Sign Value Performing Clinician Faci lity 02-25-2025 08:35-0400 Body height 162.6 cm Ender Treviño DPM Work Phone: [facility] 02-25-2025 08:35-0400 Body mass index (BMI) [Ratio] 39.99 kg/m2 Ender Treviño DPM Work Phone: [facility] 02-25-2025 08:35-0400 Body weight 105.69 kg Ender Laraher DPM Work Phone: [facility] 02-11-2025 14:51-0400 Body mass index (BMI) [Ratio] 40.32 kg/m2 Cristian Teixeira 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 Work Phone: [facility] 02-11-2025 14:51-0400 Body weight 101.61 kg Cristian Teixeira 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 Work Phone: [facility] 02-11-2025 14:51-0400 Diastolic blood pressure 76 mm[Hg] Cristian Teixeira 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 Work Phone: [facility] 02-11-2025 14:51-0400 Heart rate 74 /min Cristian Teixeira 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 Work Phone: [facility] 02-11-2025 14:51-0400 Respiratory rate 18 /min Cristian Teixeira 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 Work Phone: [facility] 02-11-2025 14:51-0400 SaO2% (BldA) [Mass fraction] 98 % Cristian Teixeira 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 Work Phone: [facility] [employer] [facility] 02-11-2025 14:51-0400 Systolic blood pressure 124 mm[Hg] Cristian Smither 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 Work Phone: [facility] [employer] [facility] 09-16-2024 14:51-0400 Body height 158.8 cm Cristian Teixeira 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 Work Phone: [facility] [employer] [facility] 09-16-2024 14:51-0400 Body mass index (BMI) [Ratio] 41.4 kg/m2 Cristian Teixeira 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 Work Phone: [facility] [employer] [facility] 09-16-2024 14:51-0400 Body weight 104.33 kg Cristian Teixeira 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 Work Phone: [facility] [employer] [facility] 09-16-2024 14:51-0400 Diastolic blood pressure 70 mm[Hg] Cristian Smither 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 Work Phone: [facility] [employer] 09-16-2024 14:51-0400 Heart rate 75 /min Cristian Smither 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 Work Phone: [facility] [employer] [facility] 09-16-2024 14:51-0400 Respiratory rate 16 /min Cristian Smither 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 Work Phone: [facility] [employer] [facility] 09-16-2024 14:51-0400 SaO2% (BldA) [Mass fraction] 98 % Cristian Smither 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 Work Phone: [facility] [employer] [facility] 09-16-2024 14:51-0400 Systolic blood pressure 120 mm[Hg] Cristian Smither 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 Work Phone: [facility] [employer] [facility] 07-16-2024 15:16-0500 Body mass index (BMI) [Ratio] 39.99 kg/m2 Claire De Los Santos DO Work Phone: [facility] 07-16-2024 15:16-0500 Body weight 105.69 kg Christopher Filiberto DO Work Phone: [facility] 07-16-2024 15:16-0500 Diastolic blood pressure 104 mm[Hg] Christopher Filiberto DO Work Phone: [facility] 07-16-2024 15:16-0500 Heart rate 73 /min Christopher Filiberto DO Work Phone: [facility] 07-16-2024 15:16-0500 SaO2% (BldA) [Mass fraction] 96 % Christopher Filiberto DO Work Phone: [facility] 07-16-2024 15:16-0500 Systolic blood pressure 160 mm[Hg] Dharmeshopher Filiberto DO Work Phone: [facility] 05-20-2024 08:18-0500 Body mass index (BMI) [Ratio] 38.77 kg/m2 Cristian Crespochter 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 Work Phone: [facility] 05-20-2024 08:18-0500 Body weight 105.69 kg Cristian Crespochter 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 Work Phone: [facility] 05-20-2024 08:18-0500 Diastolic blood pressure 76 mm[Hg] Cristianra Crespochter 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 Work Phone: [facility] 05-20-2024 08:18-0500 Heart rate 81 /min Cristian Cheriechter 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 Work Phone: [facility] 05-20-2024 08:18-0500 Respiratory rate 16 /min Cristian Schlachter 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 Work Phone: [facility] 05-20-2024 08:18-0500 SaO2% (BldA) [Mass fraction] 98 % Cristian Cheriechter 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 Work Phone: [facility] 05-20-2024 08:18-0500 Systolic blood pressure 126 mm[Hg] Cristian Teixeira 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 Work Phone: [facility] 05-16-2024 10:55-0500 Body mass index (BMI) [Ratio] 41.04 kg/m2 Zeferino Desouza MD Work Phone: [facility] 05-16-2024 10:55-0500 Body temperature 97.39 [degF] Zeferino Desouza MD Work Phone: [facility] 05-16-2024 10:55-0500 Body weight 105.1 kg Zeferino Desouza MD Work Phone: [facility] 05-16-2024 10:55-0500 Diastolic blood pressure 87 mm[Hg] Zeferino Desouza MD Work Phone: [facility] 05-16-2024 10:55-0500 Heart rate 63 /min Zeferino Desouza MD Work Phone: [facility] 05-16-2024 10:55-0500 Respiratory rate 16 /min Zeferino Desouza MD Work Phone: [facility] 05-16-2024 10:55-0500 SaO2% (BldA) [Mass fraction] 96 % Zeferino Desouza MD Work Phone: [facility] 05-16-2024 10:55-0500 Systolic blood pressure 122 mm[Hg] Zeferino Desouza MD Work Phone: [facility] 04-29-2024 12:45-0400 Body height 160 cm Quinten Ruiz MD Work Phone: [facility] 04-29-2024 12:45-0400 Body mass index (BMI) [Ratio] 40.46 kg/m2 Quinten Ruiz MD Work Phone: [facility] 04-29-2024 12:45-0400 Body weight 103.6 kg Quinten Ruiz MD Work Phone: [facility] 04-29-2024 12:45-0400 Diastolic blood pressure 79 mm[Hg] Quinten Ruiz MD Work Phone: [facility] 04-29-2024 12:45-0400 Heart rate 86 /min Quinten Ruiz MD Work Phone: [facility] 04-29-2024 12:45-0400 SaO2% (BldA) [Mass fraction] 97 % Quinten Ruiz MD Work Phone: [facility] 04-29-2024 12:45-0400 Systolic blood pressure 122 mm[Hg] Quinten Ruiz MD Work Phone: [facility] 04-29-2024 10:57-0400 Body height 160 cm Kandy Wegas QUALITY CONTROL ENGINEERING TECHNICIAN.STOCK PREPARATION OPERATOR Work Phone: [facility] 04-29-2024 10:57-0400 Body mass index (BMI) [Ratio] 40.46 kg/m2 Kandy Wegas QUALITY CONTROL ENGINEERING TECHNICIAN.STOCK PREPARATION OPERATOR Work Phone: [facility] 04-29-2024 10:57-0400 Body temperature 97.59 [degF] Kandy Wegas QUALITY CONTROL ENGINEERING TECHNICIAN.STOCK PREPARATION OPERATOR Work Phone: [facility] 04-29-2024 10:57-0400 Body weight 103.6 kg Kandy Wegas QUALITY CONTROL ENGINEERING TECHNICIAN.STOCK PREPARATION OPERATOR Work Phone: [facility] 04-29-2024 10:57-0400 Diastolic blood pressure 78 mm[Hg] Kandy Wegas QUALITY CONTROL ENGINEERING TECHNICIAN.STOCK PREPARATION OPERATOR Work Phone: [facility] 04-29-2024 10:57-0400 Heart rate 80 /min Kandy Wegas QUALITY CONTROL ENGINEERING TECHNICIAN.STOCK PREPARATION OPERATOR Work Phone: [facility] 04-29-2024 10:57-0400 Respiratory rate 14 /min Kandy Wegas QUALITY CONTROL ENGINEERING TECHNICIAN.STOCK PREPARATION OPERATOR Work Phone: [facility] 04-29-2024 10:57-0400 SaO2% (BldA) [Mass fraction] 98 % Kandy Wegas QUALITY CONTROL ENGINEERING TECHNICIAN.STOCK PREPARATION OPERATOR Work Phone: [facility] 04-29-2024 10:57-0400 Systolic blood pressure 162 mm[Hg] Kandy Vallecillo APRN.STOCK PREPARATION OPERATOR Work Phone: [facility] 04-14-2024 09:32-0400 Body height 162.6 cm Tiffanie Moreno PA Work Phone: [facility] 04-14-2024 09:32-0400 Body mass index (BMI) [Ratio] 39.48 kg/m2 Tiffanie [place] PA Work Phone: [facility] 04-14-2024 09:32-0400 Body weight 104.33 kg Tiffanie Tiffanie PA Work Phone: [facility] 04-14-2024 09:32-0400 Diastolic blood pressure 86 mm[Hg] Tiffanie [place] PA Work Phone: [facility] 04-14-2024 09:32-0400 Systolic blood pressure 138 mm[Hg] Tiffanie [place] PA Work Phone: [facility] 03-03-2024 15:46-0400 Body mass index (BMI) [Ratio] 37.94 kg/m2 Cristian Teixeira 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 Work Phone: [facility] 03-03-2024 15:46-0400 Body weight 103.42 kg Cristian Teixeira 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 Work Phone: [facility] 03-03-2024 15:46-0400 Diastolic blood pressure 74 mm[Hg] Cristian Teixeira 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 Work Phone: [facility] 03-03-2024 15:46-0400 Heart rate 78 /min Cristian Teixeira 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 Work Phone: [facility] 03-03-2024 15:46-0400 Respiratory rate 18 /min Cristian Teixeira 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 Work Phone: [facility] 03-03-2024 15:46-0400 SaO2% (BldA) [Mass fraction] 97 % Cristian Teixeira 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 Work Phone: [facility] 03-03-2024 15:46-0400 Systolic blood pressure 126 mm[Hg] Cristian Teixeira 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 Work Phone: [facility] 02-06-2024 11:25-0400 Body height 160 cm Quinten Ruiz MD Work Phone: [facility] 02-06-2024 11:25-0400 Body mass index (BMI) [Ratio] 39.64 kg/m2 Quinten Ruiz MD Work Phone: [facility] 02-06-2024 11:25-0400 Body weight 101.52 kg Quinten Ruiz MD Work Phone: [facility] 02-06-2024 11:25-0400 Diastolic blood pressure 76 mm[Hg] Quinten Ruiz MD Work Phone: [facility] 02-06-2024 11:25-0400 Heart rate 63 /min Quinten Ruiz MD Work Phone: [facility] 02-06-2024 11:25-0400 SaO2% (BldA) [Mass fraction] 96 % Quinten Ruiz MD Work Phone: [facility] 02-06-2024 11:25-0400 Systolic blood pressure 141 mm[Hg] Quinten Ruiz MD Work Phone: [facility] 01-03-2024 13:41-0400 Body mass index (BMI) [Ratio] 40.89 kg/m2 Zeferino Desouza MD Work Phone: [facility] 01-03-2024 13:41-0400 Body temperature 97.59 [degF] Zeferino Desouza MD Work Phone: [facility] 01-03-2024 13:41-0400 Body weight 104.7 kg Zeferino Desouza MD Work Phone: [facility] 01-03-2024 13:41-0400 Diastolic blood pressure 71 mm[Hg] Zeferino Desouza MD Work Phone: [facility] 01-03-2024 13:41-0400 Heart rate 74 /min Zeferino Desouza MD Work Phone: [facility] 01-03-2024 13:41-0400 Respiratory rate 18 /min Zeferino Desouza MD Work Phone: [facility] 01-03-2024 13:41-0400 SaO2% (BldA) [Mass fraction] 96 % Zeferino Desouza MD Work Phone: [facility] 01-03-2024 13:41-0400 Systolic blood pressure 127 mm[Hg] Zeferino Desouza MD Work Phone: [facility] 11-28-2023 14:44-0400 Body mass index (BMI) [Ratio] 40.77 kg/m2 Zeferino Desouza MD Work Phone: [facility] 11-28-2023 14:44-0400 Body temperature 96.69 [degF] Zeferino Desouza MD Work Phone: [facility] 11-28-2023 14:44-0400 Body weight 104.4 kg Zeferino Desouza MD Work Phone: [facility] 11-28-2023 14:44-0400 Diastolic blood pressure 81 mm[Hg] Zeferino Desouza MD Work Phone: [facility] 11-28-2023 14:44-0400 Heart rate 64 /min Zeferino Desouza MD Work Phone: [facility] 11-28-2023 14:44-0400 Respiratory rate 18 /min Zeferino Desouza MD Work Phone: [facility] 11-28-2023 14:44-0400 SaO2% (BldA) [Mass fraction] 98 % Zeferino Desouza MD Work Phone: [facility] 11-28-2023 14:44-0400 Systolic blood pressure 128 mm[Hg] Zeferino Desouza MD Work Phone: [facility] 11-21-2023 14:51-0400 Body mass index (BMI) [Ratio] 40.42 kg/m2 Zeferino Desouza MD Work Phone: [facility] 11-21-2023 14:51-0400 Body temperature 97.2 [degF] Zeferino Desouza MD Work Phone: [facility] 11-21-2023 14:51-0400 Body weight 103.5 kg Zeferino Desouza MD Work Phone: [facility] 11-21-2023 14:51-0400 Diastolic blood pressure 84 mm[Hg] Zeferino Desouza MD Work Phone: [facility] 11-21-2023 14:51-0400 Heart rate 65 /min Zeferino Desouza MD Work Phone: [facility] 11-21-2023 14:51-0400 Respiratory rate 16 /min Zeferino Desouza MD Work Phone: [facility] 11-21-2023 14:51-0400 SaO2% (BldA) [Mass fraction] 97 % Zeferino Desouza MD Work Phone: [facility] 11-21-2023 14:51-0400 Systolic blood pressure 128 mm[Hg] Zeferino Desouza MD Work Phone: [facility] 11-14-2023 14:31-0400 Body mass index (BMI) [Ratio] 40.07 kg/m2 Zeferino Desouza MD Work Phone: [facility] 11-14-2023 14:31-0400 Body temperature 97 [degF] Zeferino Desouza MD Work Phone: [facility] 11-14-2023 14:31-0400 Body weight 102.6 kg Zeferino Desouza MD Work Phone: [facility] 11-14-2023 14:31-0400 Diastolic blood pressure 64 mm[Hg] Zeferino Desouza MD Work Phone: [facility] 11-14-2023 14:31-0400 Heart rate 69 /min Zeferino Desouza MD Work Phone: [facility] 11-14-2023 14:31-0400 Respiratory rate 16 /min Zeferino Desouza MD Work Phone: [facility] 11-14-2023 14:31-0400 SaO2% (BldA) [Mass fraction] 95 % Zeferino Desouza MD Work Phone: [facility] 11-14-2023 14:31-0400 Systolic blood pressure 134 mm[Hg] Zeferino Desouza MD Work Phone: [facility] 11-07-2023 14:54-0400 Body mass index (BMI) [Ratio] 40.07 kg/m2 Zeferino Desouza MD Work Phone: [facility] 11-07-2023 14:54-0400 Body temperature 97 [degF] Zeferino Desouza MD Work Phone: [facility] 11-07-2023 14:54-0400 Body weight 102.6 kg Zeferino Desouza MD Work Phone: [facility] 11-07-2023 14:54-0400 Diastolic blood pressure 69 mm[Hg] Zeferino Desouza MD Work Phone: [facility] 11-07-2023 14:54-0400 Heart rate 66 /min Zeferino Desouza MD Work Phone: [facility] 11-07-2023 14:54-0400 Respiratory rate 16 /min Zeferino Desouza MD Work Phone: [facility] 11-07-2023 14:54-0400 SaO2% (BldA) [Mass fraction] 98 % Zeferino Desouza MD Work Phone: [facility] 11-07-2023 14:54-0400 Systolic blood pressure 122 mm[Hg] Zeferino Desouza MD Work Phone: [facility] 10-31-2023 14:54-0400 Body mass index (BMI) [Ratio] 39.56 kg/m2 Zeferino Desouza MD Work Phone: [facility] 10-31-2023 14:54-0400 Body temperature 96.91 [degF] Zeferino Desouza MD Work Phone: [facility] 10-31-2023 14:54-0400 Body weight 101.3 kg Zeferino Desouza MD Work Phone: [facility] 10-31-2023 14:54-0400 Diastolic blood pressure 77 mm[Hg] Zeferino Desouza MD Work Phone: [facility] 10-31-2023 14:54-0400 Heart rate 65 /min Zeferino Desouza MD Work Phone: [facility] 10-31-2023 14:54-0400 Respiratory rate 16 /min Zeferino Desouza MD Work Phone: [facility] 10-31-2023 14:54-0400 SaO2% (BldA) [Mass fraction] 97 % Zeferino Desouza MD Work Phone: [facility] 10-31-2023 14:54-0400 Systolic blood pressure 115 mm[Hg] Zeferino Desouza MD Work Phone: [facility] 10-29-2023 16:08-0400 Body height 160 cm David Trinh MD Work Phone: [facility] 10-29-2023 16:08-0400 Body mass index (BMI) [Ratio] 39.15 kg/m2 David Trinh MD Work Phone: [facility] 10-29-2023 16:08-0400 Body weight 100.25 kg David Trinh MD Work Phone: [facility] 10-29-2023 16:08-0400 Diastolic blood pressure 56 mm[Hg] David Trinh MD Work Phone: [facility] 10-29-2023 16:08-0400 Heart rate 78 /min Dvaid Trinh MD Work Phone: [facility] 10-29-2023 16:08-0400 SaO2% (BldA) [Mass fraction] 94 % David Trinh MD Work Phone: [facility] 10-29-2023 16:08-0400 Systolic blood pressure 114 mm[Hg] David Trinh MD Work Phone: [facility] 10-29-2023 13:57-0400 Body mass index (BMI) [Ratio] 38.84 kg/m2 Kandy Vallecillo QUALITY CONTROL ENGINEERING TECHNICIAN.STOCK PREPARATION OPERATOR Work Phone: [facility] 10-29-2023 13:57-0400 Body temperature 98.01 [degF] Kandy Reygas QUALITY CONTROL ENGINEERING TECHNICIAN.STOCK PREPARATION OPERATOR Work Phone: [facility] 10-29-2023 13:57-0400 Body weight 100.25 kg Kandy Barths QUALITY CONTROL ENGINEERING TECHNICIAN.STOCK PREPARATION OPERATOR Work Phone: [facility] 10-29-2023 13:57-0400 Diastolic blood pressure 77 mm[Hg] Kandy Reygas QUALITY CONTROL ENGINEERING TECHNICIAN.STOCK PREPARATION OPERATOR Work Phone: [facility] 10-29-2023 13:57-0400 Heart rate 93 /min Kandy Barths QUALITY CONTROL ENGINEERING TECHNICIAN.STOCK PREPARATION OPERATOR Work Phone: [facility] 10-29-2023 13:57-0400 Respiratory rate 16 /min Kandy Barths QUALITY CONTROL ENGINEERING TECHNICIAN.STOCK PREPARATION OPERATOR Work Phone: [facility] 10-29-2023 13:57-0400 SaO2% (BldA) [Mass fraction] 95 % Kandy Barths QUALITY CONTROL ENGINEERING TECHNICIAN.STOCK PREPARATION OPERATOR Work Phone: [facility] 10-29-2023 13:57-0400 Systolic blood pressure 127 mm[Hg] Kandy Reygas QUALITY CONTROL ENGINEERING TECHNICIAN.STOCK PREPARATION OPERATOR Work Phone: [facility] 10-11-2023 12:57-0400 Body height 160.7 cm Zeferino Desouza MD Work Phone: [facility] 10-11-2023 12:57-0400 Body temperature 97.81 [degF] Zeferino Desouza MD Work Phone: [facility] 10-11-2023 12:57-0400 Body weight 97.6 kg Zeferino Desouza MD Work Phone: [facility] 10-11-2023 12:57-0400 Diastolic blood pressure 80 mm[Hg] Zeferino Desouza MD Work Phone: [facility] 10-11-2023 12:57-0400 Heart rate 87 /min Zeferino Desouza MD Work Phone: [facility] 10-11-2023 12:57-0400 Respiratory rate 18 /min Zeferino Desouza MD Work Phone: [facility] 10-11-2023 12:57-0400 SaO2% (BldA) [Mass fraction] 99 % Zeferino Desouza MD Work Phone: [facility] 10-11-2023 12:57-0400 Systolic blood pressure 141 mm[Hg] Zeferino Desouza MD Work Phone: [facility] 09-21-2023 14:51-0400 Body height 160 cm Kandy Vallecillo QUALITY CONTROL ENGINEERING TECHNICIAN.STOCK PREPARATION OPERATOR Work Phone: [facility] 09-21-2023 14:51-0400 Body temperature 98.01 [degF] Kandy Reygas QUALITY CONTROL ENGINEERING TECHNICIAN.STOCK PREPARATION OPERATOR Work Phone: [facility] 09-21-2023 14:51-0400 Body weight 95.94 kg Kandy Vallecillo QUALITY CONTROL ENGINEERING TECHNICIAN.STOCK PREPARATION OPERATOR Work Phone: [facility] 09-21-2023 14:51-0400 Diastolic blood pressure 83 mm[Hg] Kandy Reygas QUALITY CONTROL ENGINEERING TECHNICIAN.STOCK PREPARATION OPERATOR Work Phone: [facility] 09-21-2023 14:51-0400 Heart rate 67 /min Kandy Reygas QUALITY CONTROL ENGINEERING TECHNICIAN.STOCK PREPARATION OPERATOR Work Phone: [facility] 09-21-2023 14:51-0400 SaO2% (BldA) [Mass fraction] 97 % Kandy Reygas QUALITY CONTROL ENGINEERING TECHNICIAN.STOCK PREPARATION OPERATOR Work Phone: [facility] 09-21-2023 14:51-0400 Systolic blood pressure 152 mm[Hg] Kandy Reygas QUALITY CONTROL ENGINEERING TECHNICIAN.STOCK PREPARATION OPERATOR Work Phone: [facility] 09-12-2023 13:43-0500 Body height 160 cm Jasiel Turner MD Work Phone: [facility] 09-12-2023 13:43-0500 Body temperature 98.49 [degF] Jasiel Turner MD Work Phone: [facility] 09-12-2023 13:43-0500 Body weight 95.71 kg Jasiel Turner MD Work Phone: [facility] 09-12-2023 13:43-0500 Diastolic blood pressure 69 mm[Hg] Jasiel Turner MD Work Phone: [facility] 09-12-2023 13:43-0500 Heart rate 77 /min Jasiel Turner MD Work Phone: [facility] 09-12-2023 13:43-0500 Respiratory rate 14 /min Jasiel Turner MD Work Phone: [facility] 09-12-2023 13:43-0500 SaO2% (BldA) [Mass fraction] 96 % Jasiel Turner MD Work Phone: [facility] 09-12-2023 13:43-0500 Systolic blood pressure 142 mm[Hg] Jasiel Turner MD Work Phone: [facility] 09-05-2023 14:54-0500 Body height 165.1 cm Cristian Teixeira 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 Work Phone: [facility] 09-05-2023 14:54-0500 Body mass index (BMI) [Ratio] 35.78 kg/m2 Cristian Teixeira 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 Work Phone: [facility] 09-05-2023 14:54-0500 Body weight 97.52 kg Cristian Teixeira 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 Work Phone: [facility] 09-05-2023 14:54-0500 Diastolic blood pressure 70 mm[Hg] Cristian Teixeira 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 Work Phone: [facility] 09-05-2023 14:54-0500 Heart rate 64 /min Cristian Teixeira 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 [facility] 09-05-2023 14:54-0500 Respiratory rate 18 /min Cristian Crespojeremiahguerrero 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 [facility] Phone: [facility] 09-05-2023 14:54-0500 SaO2% (BldA) [Mass fraction] 97 % [facility] 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 [facility]: [facility] 09-05-2023 14:54-0500 Systolic blood pressure 124 mm[Hg] [facility] 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 Work Phone: [facility] Encounters Encounter Date Encounter Type Care Provider Facility Start: 02-25-2025 End: 02-25-2025 [employer] Ender Treviño DPM Work Phone: [facility] Start: 02-25-2025 End: 02-25-2025 [employer] Ender Treviño DPM Work Phone: [facility] Start: 02-25-2025 End: 02-25-2025 Office outpatient new 45 minutes Ender Treviño DPM Work Phone: [facility] Comment on above: Posterior tibial ten dinitis of right lower extremity (Primary Dx); Valgus deformity, not elsewhere classified, right ankle; Equinus contracture of right ankle; Right foot pain; Difficulty walking; Instability of right ankle joint Start: 02-11-2025 End: 02-11-2025 Office outpatient visit 15 minutes Cristian Teixeira 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 Work Phone: [facility] Comment on above: Acute right ankle pa in (Primary Dx); Myasthenia gravis ([facility]) Start: 02-11-2025 End: 02-11-2025 ambulatory [facility] Start: 11-26-2024 End: 11-26-2024 ambulatory [facility] Start: 11-26-2024 End: 11-26-2024 ambulatory KANDY VALLECILLO Facility:[facility] Start: 10-10-2024 End: 10-10-2024 ambulatory [facility] Start: 10-10-2024 Encounter for genera l adult medical examination without abnormal findings [facility] Start: 10-06-2024 End: 10-06-2024 ambulatory Quinten Ruiz MD Work Phone: Neurology Comment on above: Dental question Start: 09-16-2024 End: 09-16-2024 Patient encounter status [facility] 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 Work Phone: [email or web address] Work Phone: Start: 09-16-2024 End: 09-16-2024 Periodic preventive med est patient 40-64yrs [facility] 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 Work Phone: [facility] Comment on above: Wellness examination (Primary Dx); Myasthenia gravis (CMS-HCC); Thymoma Start: 09-16-2024 End: 09-16-2024 ambulatory [facility] Start: 09-16-2024 Encounter for genera l adult medical examination without abnormal findings [facility] Start: 08-27-2024 End: 08-27-2024 ambulatory Kandy Vallecillo QUALITY CONTROL ENGINEERING TECHNICIAN.STOCK PREPARATION OPERATOR Work Phone: [facility] Start: 08-27-2024 End: 08-27-2024 Patient encounter procedure Kandy Vallecillo QUALITY CONTROL ENGINEERING TECHNICIAN.STOCK PREPARATION OPERATOR Work Phone: [facility] Comment on above: October 20 scan & ap pointment Start: 07-16-2024 End: 07-16-2024 Office outpatient visit 25 minutes Claire De Los Santos DO Work Phone: [facility] Comment on above: Myasthenia gravis (C MS/HCC) (Primary Dx); Thymoma Start: 07-16-2024 End: 07-16-2024 ambulatory CLAIRE DE LOS SANTOS Not Available Start: 07-16-2024 End: 07-16-2024 Bamboo flowsheet Claire De Los Santos DO Work Phone: [facility] Start: 07-16-2024 End: 07-16-2024 Bamboo flowsheet Claire De Los Santos DO Work Phone: [facility] Start: 05-20-2024 End: 05-20-2024 Office outpatient visit 15 minutes Cristian Teixeira APRN-STOCK PREPARATION OPERATOR [facility] Comment on above: Myasthenia gravis (C MS-HCC) (Primary Dx); Thymoma; Acute non-recurrent maxillary sinusitis Start: 05-20-2024 End: 05-20-2024 ambulatory Quinten Ruiz MD Work Phone: Neurology Comment on above: Medications Start: 05-16-2024 End: 05-16-2024 ambulatory ZEFERINO DESOUZA Facility:[facility] Start: 05-16-2024 End: 05-16-2024 Patient encounter procedure Zeferino Desouza MD Work Phone: Radiation Oncology Comment on above: Thymoma (Primary Dx) Start: 04-29-2024 End: 04-29-2024 Patient encounter procedure Kandy Vallecillo APRN.STOCK PREPARATION OPERATOR Work Phone: [facility] Comment on above: Malignant neoplasm o f thymus (HCC) (Primary Dx); Thymoma Myasthenia gravis (H CC) (Primary Dx) Start: 04-29-2024 End: 04-29-2024 ambulatory QUINTEN RUIZ Facility:[facility] Start: 04-29-2024 End: 04-29-2024 Subsequent hospital visit [...] est patient 40-64yrs Tiffanie HANNA Work Phone: [facility] Comment on above: Well woman exam with routine gynecological exam; Breast cancer screening by mammogram; Postmenopausal state Start: 04-14-2024 End: 04-14-2024 ambulatory TIFFANIE MORENO Not Available Start: 03-03-2024 End: 03-03-2024 Office outpatient visit 15 minutes [facility] 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 Work Phone: [facility] Comment on above: Myasthenia gravis (C MS-HCC) (Primary Dx); Thymoma Start: 03-03-2024 End: 03-03-2024 ambulatory [facility] Start: 02-06-2024 End: 02-06-2024 ambulatory QUINTEN RUIZ Facility:[facility] Start: 02-06-2024 End: 02-06-2024 Patient encounter procedure Quinten Ruiz MD Work Phone: Neurology Comment on above: Myasthenia gravis (H CC) (Primary Dx) Start: 01-22-2024 End: 01-22-2024 ambulatory CLAIRE DE LOS SANTOS Not Available Start: 01-03-2024 End: 01-03-2024 ambulatory ZEFERINO DESOUZA Facility:[facility] Start: 01-03-2024 End: 01-03-2024 Patient encounter procedure Zeferino Desouza MD Work Phone: Radiation Oncology Comment on above: Thymoma (Primary Dx) Start: 12-18-2023 Telephone encounter Dilcia Price RN Radiation Oncology Comment on above: Patient Update (Post Radiation Nurse Call ) Start: 11-30-2023 Patient encounter procedure Zeferino Desouza MD Work Phone: Radiation Oncology Start: 11-30-2023 Radiation Oncology Note Zeferino guzman MD Work Phone: Radiation Oncology Comment on above: Completion Note Start: 11-29-2023 Refill Kandy FERRELL RN.STOCK PREPARATION OPERATOR Work Phone: [facility] Start: 11-28-2023 End: 11-28-2023 Patient encounter procedure Zeferino Desouza MD Work Phone: Radiation Oncology Comment on above: Thymoma (Primary Dx) Start: 11-21-2023 End: 11-21-2023 Patient encounter procedure Zeferino Desouza MD Work Phone: Radiation Oncology Comment on above: Thymoma (Primary Dx) Start: 11-14-2023 End: 11-14-2023 Patient encounter procedure Zeferino Desouza MD Work Phone: Radiation Oncology Comment on above: Thymoma (Primary Dx) Start: 11-07-2023 End: 11-07-2023 Patient encounter procedure Zeferino Desouza MD Work Phone: Radiation Oncology Comment on above: Thymoma (Primary Dx) Start: 10-31-2023 End: 10-31-2023 Patient encounter procedure Zeferino Desouza MD Work Phone: Radiation Oncology Comment on above: Thymoma (Primary Dx) Start: 10-29-2023 End: 10-29-2023 Patient encounter procedure Kandy Vallecillo APRN.STOCK PREPARATION OPERATOR Work Phone: [facility] Comment on above: Malignant neoplasm o f thymus (HCC) (Primary Dx); Myasthenia gravis (HCC) Myasthenia gravis (H CC) (Primary Dx) Start: 10-29-2023 End: 10-29-2023 Subsequent hospital visit by physician Xr Chest Main J1 Work Phone: Radiology Comment on above: Myasthenia gravis (H CC) [G70.00] Start: 10-17-2023 Patient encounter procedure Ccf Provider [facility] Start: 10-16-2023 End: 10-16-2023 Subsequent hospital visit by physician Arrival Time Radiology Work Phone: Radiology Pet CT Comment on above: Malignant neoplasm o f thymus (HCC) [C37] Start: 10-12-2023 End: 10-12-2023 Subsequent hospital visit by physician Zeferino Desouza MD Work Phone: Radiology [facility] Start: 10-12-2023 End: 10-15-2023 Patient encounter procedure Zeferino Desouza MD Work Phone: [facility] Comment on above: Thymoma (Primary Dx) Start: 10-12-2023 Radiation Oncology Note Zeferino guzman MD Work Phone: Radiation Oncology Comment on above: Simulation Note Treatment Planning Start: 10-11-2023 ambulatory Zaira Vines QUALITY TECHNICIAN Radia tion Oncology Comment on above: Patient Education Start: 10-11-2023 End: 10-12-2023 Patient encounter procedure Zeferino Desouza MD Work Phone: Radiation Oncology Comment on above: Thymoma (Primary Dx) Start: 09-27-2023 End: 09-27-2023 Subsequent hospital visit by physician [facility] Comment on above: Multiple thyroid nod ules [E04.2] Start: 09-26-2023 Telephone encounter Jasiel Turner MD Work Phone: [facility] Comment on above: Return To Work Lette r Start: 09-21-2023 End: 09-21-2023 Patient encounter procedure Kandy Vallecillo QUALITY CONTROL ENGINEERING TECHNICIAN.STOCK PREPARATION OPERATOR Work Phone: [facility] Comment on above: Myasthenia gravis (H CC) (Primary Dx); Thymoma Start: 09-21-2023 End: 09-21-2023 Subsequent hospital visit by physician Xr Chest Main J1 Work Phone: Radiology Comment on above: Follow-up examinatio n following surgery [Z09] Start: 09-21-2023 Telephone encounter Carley Umana [facility] A16 Comment on above: Follow Up Phone Call (RC follow up call all clear. /) Start: 09-17-2023 Telephone encounter Chris Umana NOC Comment on above: Follow Up Phone Call (RC f/u all clear/) Transition Of Care Start: 09-12-2023 End: 09-12-2023 Admission to same day surgery center Anesthesia Clearance Work Phone: [facility] Work Phone: Start: 09-12-2023 End: 09-12-2023 Patient encounter procedure Anesthesia Clearance Work Phone: Cardiothoracic Comment on above: Encounter for preope rative anesthesiology assessment for thoracic surgery (Primary Dx) Myasthenia gravis (H CC) (Primary Dx); Benign neoplasm of thymus Start: 09-12-2023 End: 09-12-2023 Patient encounter status Xr J1 Work Phone: [facility] Start: 09-12-2023 End: 09-12-2023 Subsequent hospital visit by physician Xr Chest Main J1 Work Phone: Radiology Comment on above: Myasthenia gravis (H CC) [G70.00] Start: 09-05-2023 End: 09-05-2023 Patient encounter status Cristian GenesantericaGlobiliguerrero 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 Work Phone: [email or web address] Work Phone: Start: 09-05-2023 End: 09-05-2023 Periodic preventive med est patient 40-64yrs Cristian Teixeira 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 Work Phone: [facility] Comment on above: Wellness examination (Primary Dx); Myasthenia gravis ([facility]) Start: 08-31-2023 Telephone encounter Jasiel Turner MD Work Phone: [facility] Comment on above: FMLA Paperwork Start: 08-28-2023 ambulatory CLAIRE DE LOS SANTOS Facility:[facility] Start: 08-28-2023 End: 08-28-2023 Subsequent hospital visit by physician [facility] (Istat/3t) Work Phone: [facility] Radiology MRI Comment on above: Mediastinal mass [J9 8.59] Start: 08-24-2023 Admission to [facility] Jasiel Turner MD Work Phone: [facility] Comment on above: Schedule Surgery (Ro botic b/l thymectomy ) Start: 08-24-2023 ambulatory Jasiel Turner MD Work Phone: [facility] Start: 08-24-2023 Patient encounter status Jasiel Turner MD Work Phone: [facility] Start: 08-17-2023 End: 08-17-2023 ambulatory Anne Welch MD Work Phone: Endocrinology Comment on above: Abnormal results of thyroid function studies (Primary Dx); Mediastinal mass; Myasthenia gravis (HCC); Multiple thyroid nodules Start: 08-17-2023 End: 08-17-2023 Telemedicine consultation with patient Anne Welch MD Work Phone: [facility] Start: 05-25-2021 End: 05-26-2021 ambulatory AKIL RODRIGUEZ Facility:[facility] Start: 01-19-2021 End: 01-19-[address] ODELL JOHNSON Facility:[facility] Start: 01-06-2021 End: 01-07-[address] BHAVNA GOMEZ Facility:[facility] Start: 12-07-2020 End: 12-07-[address] BHAVNA GOMEZ Facility:[facility] Procedures Date Procedure Procedure Detail Performing Clinician Start: 02-25-2025 Radex foot complete minimum 3 views Ender Treviño DPM Work Phone: Start: 02-11-2025 Adult depression screening assessment Cristian Teixeira 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 Work Phone: Start: 06-03-2024 Mammography Bhavin De Los Santos DO Work Phone: Start: 04-29-2024 Ct thorax w/contrast material Kandy Vallecillo APRN.STOCK PREPARATION OPERATOR Work Phone: Start: 04-14-2024 IGP,APTIMA HPV,AGE GDLN Tiffanie HANNA Work Phone: Start: 04-14-2024 Microscopic observat ion [Identifier] in Cervix by Cyto stain Ender Treviño DPM Work Phone: Start: 03-03-2024 Follow-up visit Follow-up CRISTIAN TEIXEIRA Start: 10-29-2023 Radiologic exam ches t 2 views Kandy Vallecillo APRNBillSTOCK PREPARATION OPERATOR Work Phone: Start: 10-16-2023 Ct thorax w/contrast material Zeferino Desouza MD Work Phone: Start: 09-21-2023 Radiologic exam ches t 2 views Jasiel Turner MD Work Phone: Start: 09-12-2023 Radiologic exam ches t 2 [...] ant neoplasm of colon Colonoscopy [facility] Start: 04-14-2029 Screening for malign ant neoplasm of cervix [facility] Start: 09-14-2026 Diabetes Screening Diabetes Screenin [facility] Start: 09-11-2026 Diabetes Screening Diabetes Screenin [facility] Start: 06-02-2026 Diabetes Screening Diabetes Screenin g [facility] Start: 02-11-2026 Adult BMI Screening Adult BMI Screen ing [facility] Start: 02-11-2026 Depression Screening Depression Scre ening [facility] Start: 02-11-2026 Tobacco Screening Tobacco Screening [facility] Start: 11-13-2025 End: 11-13-2025 Patient encounter procedure 11/13/2025 10:00 AM EDT Office Visit Radiation Oncology [address] [place], [place] [address] [address] Zeferino Desouza MD [address] [place] [address] 2 year follow up Radiation Oncology Comment on above: 2 year follow up Start: 09-21-2025 End: 09-21-2025 Patient encounter procedure 09/21/2025 9:00 AM EDT Office Visit [facility] [address] [place] [phone] Cristian Teixeira, 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 [address] [place] [address] [facility] Start: 09-16-2025 Adult BMI Follow Up Plan Adult BMI Follow Up Plan [facility] Start: 09-16-2025 Adult BMI Screening Adult BMI Screen ing [facility] Start: 09-16-2025 Tobacco Screening Tobacco Screening [facility] Start: 06-03-2025 Screening for malign ant neoplasm of breast Mammogram [facility] Start: 05-20-2025 Adult BMI Follow Up Plan Adult BMI Follow Up Plan [facility] Start: 05-20-2025 Tobacco Screening Tobacco Screening [facility] Start: 04-20-2025 End: 04-20-2025 Patient encounter procedure [facility] Start: 03-09-2025 Influenza vaccination [facility] Start: 03-03-2025 Adult BMI Follow Up Plan Adult BMI Follow Up Plan [facility] Start: 03-03-2025 Adult BMI Screening Adult BMI Screen ing [facility] Start: 02-25-2025 End: 02-25-2025 Patient encounter procedure 02/25/2025 8:45 AM EDT Office Visit [facility] [address] [place] [phone] Ender Treviño DPM [address] [place] [address] Arrived [facility] Comment on above: Arrived Start: 11-26-2024 End: 11-26-2024 Patient encounter procedure Neurology Comment on above: 6 months follow up Malignant neoplasm o f thymus (HCC) [C37] Start: 10-20-2024 End: 10-20-2024 Patient encounter procedure Radiology Comment on above: CCT Malignant neoplasm o f thymu 6 month follow up Start: 09-16-2024 End: 09-16-2025 CBC W Auto Differential panel - Blood CBC auto differential Lab Routine Wellness examination Expected: 09/16/2024, Expires: 09/16/2025 [facility] Work Phone: Comment on above: Expected: 09/16/2024 , Expires: 09/16/2025 Start: 09-16-2024 End: 09-16-2025 Lipid 1996 panel - Serum or Plasma Lipid profile Lab Routine Wellness examination Expected: 09/16/2024, Expires: 09/16/2025 [facility] Comment on above: Expected: 09/16/2024 , Expires: 09/16/2025 Start: 09-09-2024 End: 09-09-2024 Patient encounter procedure 09/09/2024 4:00 PM EST Office Visit [facility] [address] [place] [address] Cristian Teixeira, QUALITY CONTROL ENGINEERING TECHNIC[facility] [address] [place] [place] [address] [facility] Start: 09-05-2024 Adult BMI Screening Adult BMI Screen ing [facility] Start: 09-05-2024 Tobacco Screening Tobacco Screening [facility] Start: 07-16-2024 End: 07-16-2024 Patient encounter procedure 07/16/2024 3:15 PM EST Office Visit [facility] [address] [place] [phone] Claire De Los Santos DO [address] [place] [id number] Arrived [facility] Comment on above: Arrived Start: 06-05-2024 Screening for malign ant neoplasm of breast Mammogram [facility] Start: 05-30-2024 Screening for malign ant neoplasm of breast Mammogram [facility] Start: 05-16-2024 End: 05-16-2024 Patient encounter procedure 05/16/2024 10:30 AM EST Office Visit Radiation Oncology [address] [facility] [place] [place] [address] Zeferino Desouza MD [address] [facility] [place] [address] Followup Radiation Oncology Comment on above: Followup Start: 05-15-2024 End: 05-15-2024 Patient encounter procedure 05/15/2024 2:00 PM EST Office Visit Radiation Oncology [address] [facility] [facility] [place] [address] Zeferino Desouza MD [address] [facility] [facility] [place] [address] Followup Radiation Oncology Comment on above: Followup Start: 05-12-2024 End: 05-12-2024 Patient encounter procedure 05/12/2024 8:30 AM EST Office Visit [facility] [address] [place] [phone] Claire De Los Santos DO [address] [place] [address] [facility] Genometry [address] Start: 04-29-2024 End: 04-29-2024 Patient encounter procedure Radiology Comment on above: CT Malignant neoplasm o f thymus follow up / add on p er dr. ruiz Start: 04-14-2024 End: 06-14-2025 MG Breast - bilateral Screening Bilateral screening mammogram Imaging Routine Breast cancer screening by mammogram Expected: 04/14/2024, Expires: 06/14/2025 [facility] Work Phone: Comment on above: Expected: 04/14/2024 , Expires: 06/14/2025 Start: 04-14-2024 End: 04-14-2024 Patient encounter procedure 04/14/2024 9:00 AM EDT Office Visit [facility] [address] [place] [phone] Tiffanie Moreno PA [address] [place] [address] Arrived [facility] Comment on above: Arrived Start: 03-09-2024 Covid-19 Vaccine ( season) Covid-19 Vaccine ( season) [facility] Start: 03-09-2024 Covid-19 Vaccine ( season) Covid-19 Vaccine () [facility] Start: 03-09-2024 Influenza vaccination [facility] Start: 03-03-2024 End: 03-03-2024 Patient encounter procedure 03/03/2024 3:45 PM EDT Office Visit [facility] [address] [place] [phone] Cristian Teixeira, QUALITY CONTROL ENGINEERING TECHNICIAN[facility] [address] [place], [place] [phone] [facility] Start: 02-06-2024 End: 02-06-2024 Patient encounter procedure 02/06/2024 11:30 AM EDT Office Visit Neurology [address] [phone] Quinten Ruiz MD [address] [place] [address] f/u Neurology Comment on above: f/u Start: 01-03-2024 End: 01-03-2024 Patient encounter procedure 01/03/2024 2:00 PM EDT Office Visit Radiation Oncology [address] [facility] [place] [address] Zeferino Desouza MD [address] [facility] [place] [address] 6 week rv Radiation Oncology Comment on above: 6 week rv Start: 11-30-2023 End: 11-30-2023 Patient encounter procedure 11/30/2023 2:15 PM EDT Appointment Radiation Oncology [address] [facility] [place] [address] Mediastinum Radiation Oncology Comment on above: Mediastinum Start: 11-29-2023 End: 11-29-2023 Patient encounter procedure 11/29/2023 2:15 PM EDT Appointment Radiation Oncology [address] [place] [address] Mediastinum Radiation Oncology Comment on above: Mediastinum Start: 11-28-2023 End: 11-28-2023 Patient encounter procedure Radiation Oncology Comment on above: Mediastinum Location: [facility] Start: 11-27-2023 End: 11-27-2023 Patient encounter procedure 11/27/2023 2:15 PM EDT Appointment Radiation Oncology [address] [place] [address] Mediastinum Radiation Oncology Comment on above: Mediastinum Start: 11-26-2023 End: 11-26-2023 Patient encounter procedure 11/26/2023 2:15 PM EDT Appointment Radiation Oncology [address] [place] [address] Mediastinum Radiation Oncology Comment on above: Mediastinum Start: 11-23-2023 End: 11-23-2023 Patient encounter procedure 11/23/2023 2:15 PM EDT Appointment Radiation Oncology [address] [place] [address] Mediastinum Radiation Oncology Comment on above: Mediastinum Start: 11-22-2023 End: 11-22-2023 Patient encounter procedure 11/22/2023 2:15 PM EDT Appointment Radiation Oncology [address] [place] [address] Mediastinum Radiation Oncology Comment on above: Mediastinum Start: 11-21-2023 End: 11-21-2023 Patient encounter procedure Radiation Oncology Comment on above: Mediastinum Location: [facility] Start: 11-20-2023 End: 11-20-2023 Patient encounter procedure 11/20/2023 2:15 PM EDT Appointment Radiation Oncology [address] [place] [address] Mediastinum Radiation Oncology Comment on above: Mediastinum Start: 11-19-2023 End: 11-19-2023 Patient encounter procedure 11/19/2023 2:15 PM EDT Appointment Radiation Oncology [address] [place] [address] Mediastinum Radiation Oncology Comment on above: Mediastinum Start: 11-16-2023 End: 11-16-2023 Patient encounter procedure 11/16/2023 2:15 PM EDT Appointment Radiation Oncology [address] [place] [address] Mediastinum Radiation Oncology Comment on above: Mediastinum Start: 11-16-2023 End: 11-16-2023 Patient encounter procedure 11/16/2023 11:30 AM EDT Appointment Radiation Oncology [address] [place] [address] Mediastinum- this time for today per pt Radiation Oncology Comment on above: Mediastinum- this ti me for today per pt Start: 11-15-2023 End: 11-15-2023 Patient encounter procedure 11/15/2023 2:15 PM EDT Appointment Radiation Oncology [address] [place] [address] Mediastinum Radiation Oncology Comment on above: Mediastinum Start: 11-14-2023 End: 11-14-2023 Patient encounter procedure Radiation Oncology Comment on above: Mediastinum Location: [facility] Start: 11-13-2023 End: 11-13-2023 Patient encounter procedure 11/13/2023 2:15 PM EDT Appointment Radiation Oncology [address] [place] [address] Mediastinum Radiation Oncology Comment on above: Mediastinum Start: 11-12-2023 End: 11-12-2023 Patient encounter procedure 11/12/2023 2:15 PM EDT Appointment Radiation Oncology [address] [place] [address] Mediastinum Radiation Oncology Comment on above: Mediastinum Start: 11-09-2023 End: 11-09-2023 Patient encounter procedure 11/09/2023 1:45 PM EDT Appointment Radiation Oncology [address] [place] [address] Mediastinum Radiation Oncology Comment on above: Mediastinum Start: 11-08-2023 End: 11-08-2023 Patient encounter procedure 11/08/2023 2:15 PM EDT Appointment Radiation Oncology [address] [place] [address] Mediastinum Radiation Oncology Comment on above: Mediastinum Start: 11-07-2023 End: 11-07-2023 Patient encounter procedure Radiation Oncology Comment on above: Mediastinum Location: [facility] Start: 11-06-2023 End: 11-06-2023 Patient encounter procedure 11/06/2023 2:15 PM EDT Appointment Radiation Oncology [address] [place] [address] Mediastinum Radiation Oncology Comment on above: Mediastinum Start: 11-05-2023 End: 11-05-2023 Patient encounter procedure 11/05/2023 11:30 AM EDT Appointment Radiation Oncology [address] [place] [address] Mediastinum Radiation Oncology Comment on above: Mediastinum Start: 11-02-2023 End: 11-02-2023 Patient encounter procedure 11/02/2023 10:00 AM EDT Appointment Radiation Oncology [address] [place] [address] Mediastinum Radiation Oncology Comment on above: Mediastinum Start: 11-01-2023 End: 11-01-2023 Patient encounter procedure 11/01/2023 2:15 PM EDT Appointment Radiation Oncology [address] [place] [address] Mediastinum Radiation Oncology Comment on above: Mediastinum Start: 10-31-2023 End: 10-31-2023 Patient encounter procedure Radiation Oncology Comment on above: Mediastinum Location: [facility] Start: 10-30-2023 End: 10-30-2023 Patient encounter procedure 10/30/2023 2:15 PM EDT Appointment Radiation Oncology [address] [place] [address] Mediastinum Radiation Oncology Comment on above: Mediastinum Start: 09-12-2023 End: 12-12-2023 aPTT in Platelet poor plasma by Coagulation assay ACTIVATED PTT Lab STAT Myasthenia gravis (HCC) Preoperative testing Pre-procedure lab exam Expected: 09/12/2023, Expires: 12/12/2023 [facility] Work Phone: Comment on above: Expected: 09/12/2023 , Expires: 12/12/2023 Start: 09-12-2023 End: 12-12-2023 CBC W Auto Differential panel - Blood CBC + DIFF Lab STAT Myasthenia gravis (HCC) Preoperative testing Pre-procedure lab exam Expected: 09/12/2023, Expires: 12/12/2023 [facility] Work Phone: Comment on above: Expected: 09/12/2023 , Expires: 12/12/2023 Start: 09-12-2023 End: 12-12-2023 Comprehensive metabolic 2000 panel - Serum or Plasma COMP METABOLIC PANEL Lab STAT Myasthenia gravis (HCC) Preoperative testing Pre-procedure lab exam Expected: 09/12/2023, Expires: 12/12/2023 [facility] Work Phone: Comment on above: Expected: 09/12/2023 , Expires: 12/12/2023 Start: 09-12-2023 End: 12-12-2023 CONFIRM BLOOD TYPE CONFIRM BLOOD TYPE Blood Bank STAT Myasthenia gravis (HCC) Preoperative testing Pre-procedure lab exam Expected: 09/12/2023, Expires: 12/12/2023 [facility] Work Phone: Comment on above: Expected: 09/12/2023 , Expires: 12/12/2023 Start: 09-12-2023 End: 12-12-2023 PT panel - Platelet poor plasma by Coagulation assay PROTHROMBIN TIME/PT Lab STAT Myasthenia gravis (HCC) Preoperative testing Pre-procedure lab exam Expected: 09/12/2023, Expires: 12/12/2023 [facility] Work Phone: Comment on above: Expected: 09/12/2023 , Expires: 12/12/2023 Start: 09-12-2023 End: 12-12-2023 STAPH AUREUS PCR STAPH AUREUS PCR Lab STAT Myasthenia gravis (HCC) Preoperative testing Pre-procedure lab exam Expected: 09/12/2023, Expires: 12/12/2023 [facility] Work Phone: Comment on above: Expected: 09/12/2023 , Expires: 12/12/2023 Start: 09-12-2023 End: 12-12-2023 TYPE AND SCREEN,30 DAY TYPE AND SCREEN,30 DAY Blood Bank STAT Myasthenia gravis (HCC) Preoperative testing Pre-procedure lab exam Expected: 09/12/2023, Expires: 12/12/2023 [facility] Work Phone: Comment on above: Expected: 09/12/2023 , Expires: 12/12/2023 Start: 09-12-2023 End: 12-12-2023 URINALYSIS, DIPSTICK ONLY URINALYSIS, DIPSTICK ONLY Lab STAT Myasthenia gravis (HCC) Preoperative testing Pre-procedure lab exam Expected: 09/12/2023, Expires: 12/12/2023 [facility] Work Phone: Comment on above: Expected: 09/12/2023 , Expires: 12/12/2023 Start: 08-17-2023 End: 11-16-2023 THYROID PEROXIDASE ANTIBODY BLOOD THYROID PEROXIDASE ANTIBODY BLOOD Lab Routine Multiple thyroid nodules Abnormal results of thyroid function studies Expected: 08/17/2023, Expires: 11/16/2023 [facility] Work Phone: Comment on above: Expected: 08/17/2023 , Expires: 11/16/2023 Start: 08-17-2023 End: 11-16-2023 THYROID STIMULATING IMMUNOGLOBULIN BLOOD THYROID STIMULATING IMMUNOGLOBULIN BLOOD Lab Routine Multiple thyroid nodules Abnormal results of thyroid function studies Expected: 08/17/2023, Expires: 11/16/2023 [facility] Work Phone: Comment on above: Expected: 08/17/2023 , Expires: 11/16/2023 Start: 08-17-2023 End: 11-16-2023 Thyrotropin [Units/volume] in Serum or Plasma TSH BLD Lab Routine Multiple thyroid nodules Abnormal results of thyroid function studies Expected: 08/17/2023, Expires: 11/16/2023 [facility] Work Phone: Comment on above: Expected: 08/17/2023 , Expires: 11/16/2023 Start: 08-17-2023 End: 11-16-2023 Thyroxine (T4) free [Mass/volume] in Serum or Plasma T4 FREE/FREE THYROX Lab Routine Multiple thyroid nodules Abnormal results of thyroid function studies Expected: 08/17/2023, Expires: 11/16/2023 [facility] Work Phone: Comment on above: Expected: 08/17/2023 , Expires: 11/16/2023 Start: 08-17-2023 End: 11-16-2023 Triiodothyronine (T3) Free [Mass/volume] in Serum or Plasma T3 FREE BLD Lab Routine Multiple thyroid nodules Abnormal results of thyroid function studies Expected: 08/17/2023, Expires: 11/16/2023 [facility] Work Phone: Comment on above: Expected: 08/17/2023 , Expires: 11/16/2023 Start: 07-09-2023 Depression Assessment Depression Ass essment [facility] Start: 03-09-2023 Covid-19 Vaccine ( season) Covid-19 Vaccine ( season) [facility] Start: 03-09-2023 Influenza vaccination [facility] Start: 2018 Administration of varicella zoster vaccine Zoster (Shingles) Vaccine (1 of 2) [facility] Start: 2018 Pneumococcal Vaccine : 50+ (1 of 1 - PCV) Pneumococcal Vaccine: 50+ (1 of 1 - PCV) [facility] Start: 2018 Shingrix Vaccine (1 of 2) Neal grix Vaccine (1 of 2) [facility] Start: 2013 Lipid panel Lipid Screening [facility] Start: 2013 Screening for malign ant neoplasm of colon [facility] Start: 2008 Screening for malign ant neoplasm of breast [facility] Start: 1998 Screening for malign ant neoplasm of cervix [facility] Start: 1989 Screening for malign ant neoplasm of cervix [facility] Start: 1987 DTaP,Tdap and Td Vac cines (1 - Tdap) DTaP,Tdap and Td Vaccines (1 - Tdap) [facility] Start: 1987 Hepatitis B Vaccine (1 of 3 - 19+ 3-dose series) Hepatitis B Vaccine (1 of 3 - 19+ 3-dose series) [facility] Start: 1987 Urine microalbumin profile DTa P,Tdap,Td Vaccine (1 - Tdap) [facility] Start: 1986 Adult BMI Follow Up Plan Adult BMI Follow Up Plan [facility] Start: 1986 Anxiety Screening Anxiety Screening [facility] Start: 1986 Depression Screening Depression Scre ening [facility] Start: 1986 Diabetic foot examination Diabetic F oot Exam [facility] Start: 1986 Hepatitis C screening Hepatitis C Sc reening [facility] Start: 1986 HIV screening HIV Screening [facility] Start: 1980 Depression Screening Depression Scre ening [facility] Start: 1968 Glaucoma screening Diabetic Op hthalmology Exam [facility] Start: 1968 Hepatitis B Vaccine (1 of 3 - 3-dose series) Hepatitis B Vaccine (1 of 3 - 3-dose series) [facility] Start: 1968 Screening for malign ant neoplasm of colon [facility] End: 09-16-2025 Comprehensive metabolic 2000 panel - Serum or Plasma Comprehensive metabolic panel Lab Routine Wellness examination 1 Occurrences starting 09/16/2024 until 09/16/2025 [facility] Comment on above: 1 Occurrences starti ng 09/16/2024 until 09/16/2025 End: 11-27-2024 CT Chest W contrast IV CT CHEST W IVCON Radiology Routine Malignant neoplasm of thymus (HCC) 1 Occurrences starting 10/29/2023 until 11/27/2024 [facility] Work Phone: Comment on above: 1 Occurrences starti ng 10/29/2023 until 11/27/2024 End: 05-29-2025 CT Chest W contrast IV CT CHEST W IVCON Radiology Routine Malignant neoplasm of thymus (HCC) 1 Occurrences starting 04/29/2024 until 05/29/2025 [facility] Work Phone: Comment on above: 1 Occurrences starti ng 04/29/2024 until 05/29/2025 End: 08-24-2024 ECG COMPLETE ECG COMPLETE ECG STAT Myasthenia gravis (HCC) Preoperative testing Pre-procedure lab exam 1 Occurrences starting 08/24/2023 until 08/24/2024 [facility] Work Phone: Comment on above: 1 Occurrences starti ng 08/24/2023 until 08/24/2024 End: 08-24-2024 Echocardiography ECHO Cardiology Routine Myasthenia gravis (HCC) Preoperative testing Pre-procedure lab exam 1 Occurrences starting 08/24/2023 until 08/24/2024 [facility] Work Phone: Comment on above: 1 Occurrences starti ng 08/24/2023 until 08/24/2024 THIN PREP TIS PAP AN D HR HPV DNA THIN PREP TIS PAP AND HR HPV DNA Pathology and Cytology Routine Well woman exam with routine gynecological exam Ordered: 04/14/2024 [facility] Comment on above: Ordered: 04/14/2024 US Thyroid gland US THYROID/PARA THYROID Radiology Routine Multiple thyroid nodules 09/27/2023 10:48 AM EDT [facility] Work Phone: End: 09-15-2024 US Thyroid gland US THYROID/PARATHYROID Radiology Routine Multiple thyroid nodules 1 Occurrences starting 08/17/2023 until 09/15/2024 [facility] Work Phone: Comment on above: 1 Occurrences starti ng 08/17/2023 until 09/15/2024 End: 09-22-2024 XR Chest PA and Lateral XR CHEST 2V FRONTAL/LAT Radiology STAT Myasthenia gravis (HCC) Preoperative testing Pre-procedure lab exam 1 Occurrences starting 08/24/2023 until 09/22/2024 [facility] Work Phone: Comment on above: 1 Occurrences starti ng 08/24/2023 until 09/22/2024 End: 10-20-2024 XR Chest PA and Lateral XR CHEST 2V FRONTAL/LAT Radiology Routine Myasthenia gravis (HCC) Thymoma 1 Occurrences starting 09/21/2023 until 10/20/2024 [facility] Work Phone: Comment on above: 1 Occurrences starti ng 09/21/2023 until 10/20/2024 [facility] Immunizations Immunization Date Immunization Notes Care Provider Fa francisco 04-14-2022 Seasonal, quadrivale nt, recombinant, injectable influenza vaccine, preservative free Zeferino Desouza MD Work Phone: [facility] 04-14-2022 influenza virus vaccine, unspecified formulation Jasiel Turner MD Work Phone: [facility] 05-13-2019 Influenza, injectabl e, Madin Trina Canine Kidney, preservative free, quadrivalent Cristian Teixeira 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 Work Phone: [facility] Payers Date Payer Category Payer Commercial Managed C are - POS [employer] [id number] 2024 Private Health Insurance [id number] 2024 Managed Care O (unspecified) [employer] [id number] 2024 Managed Care Other (unspecified) [employer] [id number] 2021 Private Health Insurance [id number] 2014 Unknown [id number] 1968 Unknown [id number]. [id number] 1968 Unknown [id number]. [id number] 1968 Unknown [id number]. [id number] 1968 Unknown [id number]. 2.1259 1968 Unknown [id number]. 2.1259 1968 Unknown [id number] [id number]. 2.1259 1968 Unknown [id number] [id number]. 2.1286 1968 Unknown [id number] [id number]. 2.1286 1968 Unknown [id number]. 2.1286 1968 Unknown [id number] [id number]. 2.1286 1968 Unknown [id number] [id number] 1959 Self-pay 1959 Unknown [id number] Unknown [id number] Social History Date Type Detail Facility Start: 07-16-2023 End: 02-25-2025 Tobacco smoking status NHIS Never smoked tobacco [facility] Start: 07-16-2023 End: 02-25-2025 Tobacco use and exposure Smokeless tobacco non-user [facility] Start: 08-06-2023 End: 02-25-2025 Alcohol intake Current drinker of alcohol (finding) [facility] Start: 08-06-2023 End: 01-20-2024 History of Social function [facility] Start: 08-06-2023 End: 01-20-2024 Tobacco use panel [facility] Adult Depression Screening Assessment 0 [facility] Start: 07-16-2023 Alcohol Comment Rarely [facility] Start: 1970 Sex Assigned At Female [facility] Start: 01-02-2023 Gender identity Identifies as female gender (finding) [facility] Start: 07-04-2023 Sexual orientation Heterosexual (fin ding) [facility] How often to you hav e a drink containing alcohol? Monthly or less [facility] How often do you hav e 6 or more drinks on 1 occasion? Never [facility] Start: 01-20-2024 Alcohol Comment Caffeien intak e on occasion [facility] Start: 09-05-2023 End: 02-11-2025 Alcohol intake Current non-drinker of alcohol (finding) [facility] Start: 1970 Sex Assigned At Not on file [facility] Start: 02-09-2015 Sex Female (finding) [facility] NEGATED: Highlighted rowStart: NINF History of tobacco use Passive smoker [facility] Functional Status Date Assessment Result Facility 09-15-2023 Are you deaf, or do you have serious difficulty hearing No 09/15/2023 10:28 AM Lisa Benito RN No [facility] 09-15-2023 Are you blind, or do you have serious difficulty seeing, even when wearing glasses No 09/15/2023 10:28 AM Lisa Benito RN No [facility] 09-15-2023 Do you have serious difficulty walking or climbing stairs No 09/15/2023 10:28 AM Lisa Benito RN No [facility] 09-15-2023 Do you have difficul ty dressing or bathing No 09/15/2023 10:28 AM Lisa Benito RN No [facility] 09-15-2023 Because of a physica l, mental, or emotional condition, do you have difficulty doing errands alone such as visiting a physician's office or shopping No 09/15/2023 10:28 AM Lisa Benito RN No [facility] Mental Status Date Assessment Result Facility 09-15-2023 Because of a physica l, mental, or emotional condition, do you have serious difficulty concentrating, remembering, or making decisions No 09/15/2023 10:28 AM Lisa Benito RN No [facility] Clinical Notes 01-13-2021 to 02-25-2025 Ender Treviño, MARTIN - 02/25/2025 8:45 AM SO Crockett - 02/11/2025 2:45 PM SO Crockett - 09/16/2024 3:00 PM Eduardo De Los Santos DO - 07/16/2024 3:15 PM EST Note Date & Type Note Facility 02-25-2025 History of Present illness Narrative Images from the original note were not included. Subjective Patient ID: Yaneth rAana is a 54 y.o. 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 Patient changed shoe gear. Patient relates increased pain with increased activity. NKI. No other treatments tried thus far. SS: 8-8.5). HPI This is a new patient who presents to clinic with concern of right ankle pain. This has been going on for a couple of months. Patient states that she started a new part-time job this summer where she was doing a lot more activity than usual especially going up and downstairs, walking, standing for long periods of time. After starting this job she started noticing pain along the medial aspect of the right ankle. Worse with walking, standing. She has tried changing shoe gear various times with minimal improvement. It seems to be worse after working her long shifts and then it gradually improves over the week until she goes back to the part-time job of the next week and it seems to worsen again. No other treatment tried. Review of Systems Constitutional: Positive for activity change. Negative for appetite change. Respiratory: Negative for chest tightness and shortness of breath. Cardiovascular: Negative for chest pain. Musculoskeletal: Positive for arthralgias and gait problem. Skin: Negative for color change and wound. Neurological: Negative for weakness and numbness. Psychiatric/Behavioral: Negative for agitation and behavioral problems. Hematological: Does not bruise/bleed easily. Endocrine: Negative for cold intolerance and heat intolerance. Allergic/Immunologic: Negative for immunocompromised state. Past medical History Past Medical History: Diagnosis Date Female infertility H/O myasthenia gravis Myasthenia gravis ([facility]) 06/2023 Medications Current Outpatient Medications: ibuprofen 800 MG tablet, Take 1 tablet (800 mg) by mouth every 8 (eight) hours, Disp: 270 tablet, Rfl: 0 predniSONE (Deltasone) 10 MG tablet, Take 2 mg by mouth in the morning and 2 mg before bedtime., Disp: , Rfl: Allergies Patient has no known allergies. Past Surgical History Past Surgical History: Procedure Laterality Date SECTION, LOW TRANSVERSE 09/22/2004 GANGLION CYST EXCISION Left 1997 wrist - Dr. Ward HYSTERECTOMY 2017 KNEE SURGERY Right 03/12/2020 scope- Dr. Almaguer Family History Family History Problem Relation Name Age of Onset Cancer Mother Karly Yan Diabetes Father Roscoe Yan Objective Physical Exam Constitutional: Appearance: She is obese. HENT: Head: Normocephalic and atraumatic. Cardiovascular: Pulses: Normal pulses. Pulmonary: Effort: Pulmonary effort is normal. No respiratory distress. Abdominal: Palpations: There is no mass. Musculoskeletal: Cervical back: No rigidity. Comments: Weightbearing examination reveals pes planus morphology. She is able to perform a double heel rise test which supinates the hindfoot. Right foot: Isolated and maximal tenderness along the posterior tibial tendon posterior to the medial malleolus and extending very minimally towards the navicular tuberosity. No significant spring ligament tenderness. Very mild tenderness to the medial malleolus. Ankle dorsiflexion 0 degrees with the knee extended, flexed. Muscle strength 5/5 for all quadrants without tenderness. No other tenderness noted. Skin: Capillary Refill: Capillary refill takes less than 2 seconds. Findings: No lesion or rash. Neurological: Mental Status: She is alert. Comments: No loss of protective sensation, gross sensation intact. Psychiatric: Mood and Affect: Mood normal. Behavior: Behavior normal. XR foot 3+ views right Imaging Result: AP, medial oblique, lateral views are weight-bearing. Slightly decreased calcaneal inclination and increased talar declination. Enthesophyte at the insertion of the Achilles tendon and plantar fascia. First ray elevation. Approximately 30 percent talar head uncoverage. No fractures or dislocations noted. Joints appear well-maintained. Assessment/Plan ICD-10-CM 1. Posterior tibial tendinitis of right lower extremity M76.821 XR foot 3+ views right ibuprofen 800 MG tablet 2. Valgus deformity, not elsewhere classified, right ankle M21.071 XR foot 3+ views right 3. Equinus contracture of right ankle M24.571 4. Right foot pain M79.671 XR foot 3+ views right 5. Difficulty walking R26.2 6. Instability of right ankle joint M25.371 Patient was examined and evaluated. 3 views of the right foot were taken in office today and I discussed my findings. Patient has pes planovalgus deformity which seems to be leading to the symptomatology consistent with posterior tibial tendinitis. Causes and treatment options for progressive flatfoot deformity were discussed in detail. At this time I am recommending a home exercise program focusing on gastroc soleal contracture and periarticular ankle strengthening exercises. Program was printed off and given to the patient. Complete daily as instructed. I have recommended orthotic therapy to help control the foot structure and reduced valgus stresses across the midfoot. Patient was wearing sandals today and so she will come back another day with her tennis shoes to trial power step orthotics. I have recommended an ASO brace for stabilization and limitation of motion of the ankle and rearfoot. Patient agreed and was fitted for the appropriate brace. Goals of therapy include prevent further injury, reduced valgus instability of the hindfoot into increased ability to a hypermobile foot. Anticipated time of use - indefinite. At the time of dispensing it is suitable and not substandard. Patient is able to apply the brace independently. It is comfortable to walk and fits inside the shoe. I also discussed surgical reconstruction if conservative care is unsuccessful. Lastly I recommended an anti-inflammatory that can be taken on an as-needed basis. Prescription was sent to patient's pharmacy. For now we will follow up as needed. This note was created with the assistance of a speech recognition program. While intending to generate a timely document that accurately reflects the content of the visit, no guarantee can be provided that every grammatical or spelling mistake has been or will be identified or corrected. Thank you for your understanding. Ender Treviño DPM documented in this encounter [facility] 02-11-2025 History of Present illness Narrative Images from the original note were not included. [address] [facility] [id number] SUBJECTIVE: Patient ID: Marnie Arana is a 54 y.o. female. Patient presents to the office with complaints of medial right ankle pain. It started in beginning of December. In November she bought Oofas sandals when she was on vacation and was wearing them for awhile. Had some awkwardness because they had a high arch. Then she started to work at [employer] in [place] and bought Hokas and started to have pain in her right ankle when she was on her feet for long periods of time. Switched to Augment and still having issues. Has tenderness to medial ankle. Ankle Pain Pertinent negatives include no numbness. The following portions of the patient's history were reviewed and updated as appropriate: allergies, current medications, past family history, past medical history, past social history, past surgical history and problem list. REVIEW OF SYSTEMS: Review of Systems Constitutional: Negative for fatigue, fever and unexpected weight change. HENT: Negative for congestion, ear pain, sinus pressure, sinus pain and sore throat. Eyes: Negative for [...] gait problem, joint swelling and neck pain. Right ankle pain Skin: Negative for pallor and rash. Neurological: Negative for dizziness, weakness, light-headedness and numbness. Psychiatric/Behavioral: Negative for sleep disturbance. The patient is not nervous/anxious. PHYSICAL EXAMINATION: Vitals: 02/11/25 1451 BP: 124/76 Pulse: 74 Resp: 18 SpO2: 98% Weight: 101.6 kg (224 lb) Physical Exam Constitutional: Appearance: She is well-developed. HENT: Head: Normocephalic and atraumatic. Right Ear: External ear normal. Left Ear: External ear normal. Eyes: Conjunctiva/sclera: Conjunctivae normal. Pupils: Pupils are equal, round, and reactive to light. Cardiovascular: Rate and Rhythm: Normal rate and regular rhythm. Heart sounds: Normal heart sounds. Pulmonary: Effort: Pulmonary effort is normal. Breath sounds: Normal breath sounds. Musculoskeletal: Cervical back: Normal range of motion. Right ankle: Tenderness present over the medial malleolus. Normal range of motion. Skin: General: Skin is warm and dry. Neurological: Mental Status: She is alert and oriented to person, place, and time. Psychiatric: Mood and Affect: Mood normal. ASSESSMENT/PLAN: Marnie was seen today for ankle pain. Diagnoses and all orders for this visit: Acute right ankle pain - X-ray ankle right minimum 3 views; Future Myasthenia gravis ([facility]) Follow-up: Would like referral to podiatry is leaving for [place] Placed referral SO Briones 02/11/25 1515 documented in this encounter [email or web address] 11-26-2024 Note HNO ID: [id number] Author: GUDELIA COE APRN.CNP Service: ? Author Type: Nurse Practitioner Type: Progress Notes Filed: 11/26/2024 15:12 Note Text: Part of this note was copied from previous note, all content has been individually reviewed, updated as necessary, and thoroughly reviewed. [facility] - OUTPATIENT THORACIC SURGERY CLINIC NOTE PT NAME: Marnie Cassidy [facility] NO: [id number] THORACIC SURGEON: Jasiel Turner M.D. DATE OF SERVICE: 11/26/2024 PRINCIPAL DX: -T1aN0 stage IIa Thymoma, (+) [...] been determined by the performing laboratory within [facility]?s [place] [place] [facility] [place] (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 Preoperative Hospital Course: Presented with blurry vision in the evening as well as intermittent double vision, symptoms began 05/2023. 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 Tumor wa (more content not included)... [facility] 11-26-2024 Note HNO ID: [id number] Author: TRISH PRO RN Service: Radiology Author Type: Registered Nurse Type: Progress Notes Filed: 11/26/2024 13:15 Note Text: Radiology Service Progress Note DATE OF SERVICE: November 26, 2024 TIME: 1:14 PM PATIENT WEIGHT: 222LBS PATIENT IDENTITY VERIFICATION COMPLETED USING TWO (2) STANDARD IDENTIFIERS: Name and Date of confirmed by patient verbally and Name and Date of confirmed by identification band. FALL SCREENING: Has the patient had 2 falls in the last year or 1 fall with injury or currently using an Ambulatory Assistive Device (Walker, Cane, Wheelchair, Crutches, etc.)? No PATIENT GENDER DATA: Assigned female at . status: : No status: NO. ALLERGIES: Reviewed [...] accurately reflect actual GFR. P.O.C.T. RESULTS: N/A November 26, 2024 TREATMENT: No Hydration needed. IV SITE: Ambulatory: A peripheral IV was started in the Right antecubital site with a Angio cath: 22 gauge. and A Saline lock was inserted per protocol IV SITE APPEARANCE: Clean,Dry and Intact SIGNATURE: Trish Pro RN PATIENT NAME: Marnie Arana DATE: November 26, 2024 TIME: 1:14 PM [facility] 11-26-2024 Note HNO ID: [id number] Author: MEY LINDER RT(R) Service: Radiology Author Type: Technologist Type: Progress Notes Filed: 11/26/2024 13:25 Note Text: Radiology Service Progress Note PATIENT NAME: Marnie Arana DATE OF SERVICE: November 26, 2024 TIME: 1:23 PM PATIENT IDENTITY VERIFICATION COMPLETED USING TWO (2) IDENTIFIERS: Name and Date of confirmed by patient verbally and Name and Date of confirmed by identification band. FALL SCREENING: Has the patient had 2 falls in the last year or 1 fall with injury or currently using an Ambulatory Assistive Device (Walker, Cane, Wheelchair, Crutches, etc.)? No PATIENT GENDER DATA: Assigned female at . status: : No status: NO. PATIENT RELEVANT IMPLANT DATA REVIEWED: Yes PATIENT PRESENTS WITH AN IMPLANTABLE OR ATTACHED FILENET P8 DEVELOPER: No RADIOLOGY DEPARTMENT: CT; Exam(s) Completed: Chest PERIPHERAL IV DATA: Site assessment: Clean,Dry and Intact, Site disposition Discontinued SIGNED BY: RT Jaron(R) November 26, 2024 1:23 PM [facility] 11-26-2024 Note HNO ID: [id number] Author: QUINTEN RUIZ MD Service: ? Author Type: Physician Type: Progress Notes Filed: 11/26/2024 12:51 Note Text: I saw Marnie Arana at the [facility] on 04/29/24 in follow up [...] plan was to continuing to wean prednisone until completely off. Since their last visit: Will be retiring at the end of this yerar. Will still work 13 hr week next year. 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 Going to [employer] twice! Doing very well. Completed steroids end of Aug. Also stopped pyridostigmine. Symptom free. ROS: Pertinent positive and negative systems reviewed in HPI. Medications: Current Outpatient Medications Medication Sig CALCIUM ORAL Take by mouth. pyRIDostigmine bromide 30 mg tab Take 30 mg by mouth once daily. (Patient not taking: Reported on 05/16/2024) ibuprofen (MOTRIN) 600 mg tablet Take 1 tablet by mouth every 6 hours as needed for pain. (Patient not taking: Reported on 04/29/2024) cholecalciferol, vitamin D3, (VITAMIN D3 ORAL) Take 2,000 Units by mouth once daily. No current facility-administered medications for this visit. Allergies: ALLERGIES No Known Allergies Exam: 11/26/24 1058 BP: 135/70 Pulse: 65 SpO2: 99% Weight: 100.7 kg (222 lb 0.1 oz) Gen: appears stated age, no acute distress [...] ocular MG s/p thymectomy and adjuvant radiation. Asymptomatic with normal examination off all therapy. Plan: Continue regular follow up with thoracic surgery for cancer monitoring No need for any MG specific therapy Contact my office if symptoms recur RV in 6 months Quinten Ruiz MD [facility] [address] [place], [place] [id number] I spent a total of 25 minutes on the date of the service which included preparing to see the patient, [id number] patient care, completing clinical documentation, obtaining and/or reviewing separately obtained history, performing a medically appropriate examination, counseling and educating the patient/family/caregiver. [facility] 09-16-2024 History of Present illness Narrative Images from the original note were not included. [address] [place] [id number] Subjective: Marnie Arana is a 54 y.o. female who presents for an Annual Wellness exam. Patient presents to the office for wellness. Has history of myasthenia gravis and thymoma. Follows with neurology, oncology, cardiothoracic surgeon. She is doing well. Recently stopped prednisone. Started walking and making sure she has 10,000 steps a day. Due for wellness labs. Colonoscopy is up to date 2030. Mammogram and pap up to date,. The following portions of the patient's history were reviewed and updated as appropriate: medications, allergies, past medical history, past surgical history, social history, family history and immunization history Vitals: Vitals: 09/16/24 1451 BP: 120/70 Pulse: 75 Resp: 16 SpO2: 98% Weight: 104.3 kg (230 lb) Height: 158.8 cm (5' 2.5 ) History: Patient Active Problem List Diagnosis Date Noted Thymoma 03/03/2024 Myasthenia gravis ([facility]) 06/13/2023 History reviewed. No pertinent [...] pressure, sinus pain and sore throat. Eyes: Negative for [...] The patient is not nervous/anxious. Objective: BP 120/70 Pulse 75 Resp 16 Ht 158.8 cm (5' 2.5 ) Wt 104.3 kg (230 lb) SpO2 98% BMI 41.40 kg/m Physical Exam Constitutional: Appearance: She is well-developed. HENT: Head: Normocephalic and atraumatic. Right Ear: Tympanic membrane, ear canal and external ear normal. Left Ear: Tympanic membrane, ear canal and external ear normal. Eyes: Conjunctiva/sclera: Conjunctivae normal. Pupils: Pupils are equal, round, and reactive to light. Cardiovascular: Rate and Rhythm: Normal rate and regular rhythm. Heart sounds: Normal heart sounds. Pulmonary: Effort: Pulmonary effort is normal. Breath sounds: Normal breath sounds. Musculoskeletal: Cervical back: Normal range of motion. Skin: General: Skin is warm and dry. Neurological: Mental Status: She is alert and oriented to person, place, and time. Psychiatric: Mood and Affect: Mood normal. Assessment/Plan: Marnie was seen today for annual exam. Diagnoses and all orders for this visit: Wellness examination - CBC auto differential; Future - Comprehensive metabolic panel; Future - Lipid profile; Future Myasthenia gravis ([facility]) Thymoma Plan No outpatient medications prior to visit. No facility-administered medications prior to visit. Follow Up: Cbc,cmp,lipid-will call with results Keep appointments with specialist Follow up yearly Patient noted to have elevated BMI and the following intervention(s) were applied: encouragement to exercise. SO Briones 09/16/24 1512 documented in this encounter [facility] 07-16-2024 History of Present illness Narrative Images from the original note were not included. Chief complaint: Myasthenia gravis Subjective Marnie Arana, 54 y.o., female Patient presents today for a follow up. Patient states things have been going well. She has weaned down to 2mg of the prednisone and is off the mestinon. She denies any visual disturbances, issues with swallowing, or imbalance. She denies any new concerns at this time. Review of Systems Constitutional: Negative for appetite change, fatigue and fever. Respiratory: Negative for cough, shortness of breath and wheezing. Cardiovascular: Negative for chest pain, palpitations and leg swelling. Gastrointestinal: Negative for abdominal pain, constipation, diarrhea and nausea. Musculoskeletal: Negative for arthralgias, gait problem and myalgias. Neurological: Negative for dizziness, tremors, numbness and headaches. Past Medical History: Diagnosis Date H/O myasthenia gravis Past Surgical History: Procedure Laterality Date GANGLION CYST EXCISION Left 1997 wrist - Dr. Ward HYSTERECTOMY 2017 KNEE SURGERY Right 03/12/2020 scope- Dr. Almaguer Family History Problem Relation Name Age of Onset Cancer Mother Social History Tobacco Use Smoking status: Never Smokeless tobacco: Not on file Substance Use Topics Alcohol use: Yes Comment: Caffeien intake on occasion Allergies: Patient has no known allergies. There were no vitals filed for this visit.There is no height or weight on file to calculate BMI. Neurologic exam: Mental status: Awake, alert to person, place and time. Recent and remote memory are intact. Language is fluent without aphasia. Attention and concentration are normal. Fund of knowledge is appropriate for level of education. Cranial nerves: CN II: Visual acuity is normal. Visual park full to confrontation. CN III, IV, : pupils equal round and reactive to light. Extraocular movements intact. No ptosis present. CN V: Facial sensation is normal. CN VII: Full and symmetric facial movement. CN VIII: Hearing is normal to finger rub bilaterally: CN IX and X: Palate elevates symmetrically. CN XI: Shoulder shrug is normal bilaterally. CN XII: Tongue is midline without atrophy or fasciculation. Motor: Strength is 5/5 throughout. Bulk is normal. Sensory: Sensation is intact to light touch throughout Four extremities. Reflexes: Deep tendon reflexes are 2+ and symmetric throughout. Coordination: Vsdure-ii-scsr testing and rapid alternating movements are normal Gait: Normal Review and summary of old records: I have reviewed the patient's care plan from [facility]. She last saw Neurology on 04/29/[address] Ruiz. They have recommended discontinuation of Mestinon and have recommended reduction of prednisone from 5 mg p.o. daily and reducing this further by 1 mg monthly until it is off. She also saw Dr. Rosmery Turner from cardiothoracic surgery at [facility] on 08/06/23. There is a plan to remove the patient's thymoma robotically in approximately 1 month. They have also ordered an MRI of the patient's liver which is scheduled for August 28. Acetylcholine blocking antibody and modulating antibody on 06/04/23 are both POSITIVE Patient states she had a recent CT of the brain without contrast at [facility] which was unremarkable. 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 This appears to be largely in remission with active weaning of prednisone.. She has a thymoma which HAS BEEN surgically resected at [facility] by Dr. Turner. Plan: Continue to wean prednisone per neurology recommendations at [facility] Thymoma The patient has thymoma identified on CT of the chest. She is status post surgical resection from the thymoma by Dr. Turner at [facility]. She is also completed 27 radiation treatments at [facility] for the thymoma. Liver lesion Patient has a lesion identified in the liver. 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 She has established with the Coumadin clinic team to follow this as well Pt has been fully educated on their diagnosis, lab results, treatment options, follow up plan, and return instructions documented in this encounter [facility] 05-20-2024 History of Present illness Narrative Images from the original note were not included. [address] [place] [id number] SUBJECTIVE: Patient ID: Marnie Arana is a [...] all orders for this visit: Myasthenia gravis ([facility]) Thymoma Acute non-recurrent maxillary sinusitis Follow-up: Cefdinir 300mg bid for ten days Keep appointments with specialist Follow up in six months or as needed Patient noted to have elevated BMI and the following intervention(s) were applied: encouragement to exercise. SO Briones 05/20/24 0835 documented in this encounter [facility] 05-16-2024 History of Present illness Narrative Radiation Oncology - Follow Up Note PATIENT NAME: Marnie Arana PATIENT Signed by: Zeferino Desouza MD I spent a total of 20 minutes on the date of the service which included preparing to see the patient, [id number] patient care, and counseling and educating the patient/family/caregiver. This document has been created with the use of voice recognition technology. It may contain inaccuracies, misspellings, inaccurate syntax or inappropriate word context that are a result of the inadequacies/shortcomings of said technology/software. documented in this encounter [facility] 05-16-2024 Note HNO ID: [id number] Author: ZEFERINO DESOUZA MD Service: ? Author Type: Physician Type: Progress Notes Filed: 06/03/2024 04:39 Note Text: Radiation Oncology - Follow Up Note PATIENT NAME: Marnie Arana PATIENT DIAGNOSIS/PATIENT IDENTIFICATION: Ms. Arana is a 53-year-old woman diagnosed with Stage I, [id number] (AJCC)/Stage IIa ([place]) thymoma (Type AB) status [...] 11/30/2023 (5400 cGy delivered in 27 fractions). INTERVAL HISTORY: Ms. Arana returns to clinic today for routine follow-up approximately six months after the completion of her radiation treatments and five months since her last visit on 01/03/2024. In the interim, she had posttreatment imaging with CT of the chest on 04/29/2024 showed expected post treatment changes in the mediastinum with no evidence of disease recurrence/residual disease. Today she reports doing well and denies any pain/discomfort in the treatment area and reports no skin irritation or breakdown. She reports no change in her voice or any shortness of breath or cough or chest pain/discomfort. She is able to swallow well without choking sensation and denies any dry mouth or altered taste. She endorses good energy appetite and hydration with stable weight as she continues to work. She also notes improvement in her vision and had stopped using the pyridostigmine. ALLERGIES ALLERGIES No Known Allergies MEDICATIONS: Current Outpatient Medications: predniSONE (DELTASONE) 1 mg tablet cholecalciferol, vitamin D3, (VITAMIN D3 ORAL) CALCIUM ORAL pyRIDostigmine bromide 30 mg tab ibuprofen (MOTRIN) 600 mg tablet PHYSICAL EXAM: GENERAL: middle-aged woman sitting in chair in no acute distress. VITALS: BP 122/87 Pulse 63 Temp 97.4 Resp 16 Wt 231 lb 11.3 oz (105.1kg) SpO2 96% KPS: 90 HEENT: NC/AT, anicteric sclera HEART: S1S2 LUNGS: non-labored breathing ABDOMEN: soft MUSCULOSKELETAL: no peripheral edema, moves all extremities. NEURO: no focal deficit; AANDO X3. RADIOLOGIC DATA: CT Chest (04/29/2024) IMPRESSION: 1. Status post resection of anterior mediastinal mass with no evidence of recurrent/residual disease. 2. New evolving postradiation changes in the medial left upper lobe. 3. Stable 4 mm right upper lobe lung nodule. No new or enlarging pulmonary nodule. Continued attention on imaging surveillance is recommended. 4. No thoracic lymphadenopathy. ASSESSMENT AND PLAN: Ms. Arana is a 53-year-old woman diagnosed with Stage I, [id number] (AJCC)/Stage IIa ([place]) thymoma (Type AB) status [...] cGy delivered in 27 fractions). Ms. Arana is doing well clinically approximately 6 months out from the completion of her postoperative radiation treatments to the mediastinum with no significant residual sequela at this time. She is without radiographic concern for residual or recurrent disease with CT of the chest from 04/29/2024 showing expected posttreatment changes. She will continue her follow-up with the thoracic surgery team as scheduled including surveillance imaging and I will plan to see her back in approximately 6 months for follow-up. The patient is aware to contact the clinic in the interim should any questions or concerns arise. Thank you for allowing us to participate in the care of this patient. Signed by: Zeferino Desouza MD I spent a total of 20 minutes on the date of the service which included preparing to see the patient, [id number] patient care, and counseling and educating the patient/family/caregiver. This document has been created with the use of voice recognition technology. It may contain inaccuracies, misspellings, inaccurate syntax or inappropriate word context that are a result of the inadequacies/shortcomings of said technology/software. [facility] 04-29-2024 Instructions Quinten Ruiz MD - 04/29/2024 [...] while on prednisone documented in this encounter [facility] 04-29-2024 Note HNO ID: [id number] Author: QUINTEN RUIZ MD Service: ? Author Type: Physician Type: Progress Notes Filed: 04/29/2024 13:58 Note Text: I saw Marnie Arana at the [facility] on 04/29/24 in follow up [...] visit: Two kids in college, one in [place] (will graduate in six weeks) and 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 Will have another CT scan x 6 [...] in ~ 5 months Quinten Ruiz MD [facility] [address] [place] [address] I spent a total of 25 minutes on the date of the service which included preparing to see the patient, [id number] patient care, completing clinical documentation, obtaining and/or [...] 0=None Double vision: 0=None Eyelid droop: 0=None [facility] 04-29-2024 History of Present illness Narrative I saw Marnie Arana at the [facility] on 04/29/24 in follow up [...] visit: Two kids in college, one in [place] (will graduate in six weeks) and 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 Will have another CT scan x 6 [...] in ~ 5 months Quinten Ruiz MD [facility] [address] [place] [address] I spent a total of 25 minutes on the date of the service which included preparing to see the patient, [id number] patient care, completing clinical documentation, obtaining and/or [...] Eyelid droop: 0=None documented in this encounter [facility] 04-29-2024 History of Present illness Narrative Part of this note was copied from previous note, all content has been individually reviewed, updated as necessary, and thoroughly reviewed. [facility] - OUTPATIENT THORACIC SURGERY CLINIC NOTE PT NAME: Marnie Ange [facility] NO: [id number] THORACIC SURGEON: Jasiel Turner M.D. DATE OF [...] been determined by the performing laboratory within [facility] s [facility] [place] ([facility], [facility], [facility], [facility], [facility], [facility], or [facility]) in a manner consistent with CLIA [...] vision, symptoms began 05/2023. 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 - neurology management with Dr Ruiz f/u later today - radiation oncology management with Dr Desouza f/u 05/16/24 Kandy Vallecillo APRN.STOCK PREPARATION OPERATOR documented in this encounter [facility] 04-29-2024 Note HNO ID: [id number] Author: KANDY VALLECILLO APRN.CNP Service: ? Author Type: Nurse Practitioner Type: Progress Notes Filed: 04/29/2024 13:03 Note Text: Part of this note was copied from previous note, all content has been individually reviewed, updated as necessary, and thoroughly reviewed. [facility] - OUTPATIENT THORACIC SURGERY CLINIC NOTE PT NAME: Marnie Arana [facility] NO: [id number] THORACIC SURGEON: Jasiel Turner M.D. DATE OF [...] been determined by the performing laboratory within [facility] Pathology and Laboratory Medicine [place] ([facility], [facility], [facility], [facility], [facility], [facility], or [facility]) in a manner consistent with CLIA [...] vision, symptoms began 05/2023. 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 Tumor wa (more content not included)... [facility] 04-29-2024 History of Present illness Narrative Radiology [...] PATIENT PRESENTS WITH AN IMPLANTABLE OR ATTACHED FILENET P8 DEVELOPER: No RADIOLOGY DEPARTMENT: CT; Exam(s) Completed: Chest PERIPHERAL IV DATA: Site assessment: Clean,Dry and Intact, Site disposition Discontinued SIGNED BY: RT Nicky(R) April 29, 2024 10:03 AM documented in this encounter [facility] 04-29-2024 Note HNO ID: [id number] Author: PROSPER RAZO RN Service: Nursing Author [...] DATE: April 29, 2024 TIME: 9:49 AM [facility] 04-29-2024 Note HNO ID: [id number] Author: ANNABEL NEWMAN RT(R) Service: Radiology Author Type: Corporate Event Planner Type: Progress Notes Filed: 04/29/2024 10:08 Note [...] PATIENT PRESENTS WITH AN IMPLANTABLE OR ATTACHED FILENET P8 DEVELOPER: No RADIOLOGY DEPARTMENT: CT; Exam(s) Completed: Chest PERIPHERAL IV DATA: Site assessment: Clean,Dry and Intact, Site disposition Discontinued SIGNED BY: RT Nicky(R) April 29, 2024 10:03 AM [facility] 04-14-2024 History of Present illness Narrative Reason [...] nursing note reviewed. Exam conducted with a shell mold bonder present. Vitals: Estimated body mass index is [...] of: JACQUES Gomez documented in this encounter [facility] 03-03-2024 History of Present illness Narrative Images from the original note were not included. [address] [facility] [id number] SUBJECTIVE: Patient ID: Marnie Arana is a 53 y.o. female. Patient presents to the office for routine check up. Did finish radiation for thymoma and had resection in september. She is doing well. Did see neurology at [facility] and they are decreasing her steroids. Her eye sight is back to normal. Overall she is doing well. She is going to start walking after school.l Follow-up Pertinent negatives include no abdominal pain, arthralgias, [...] pressure, sinus pain and sore throat. Eyes: Negative for [...] patient is not nervous/anxious. PHYSICAL EXAMINATION: Vitals: 03/03/24 1546 BP: 126/74 Pulse: 78 Resp: 18 SpO2: 97% Weight: 103.4 kg (228 lb) Physical Exam Constitutional: Appearance: She is well-developed. HENT: Head: Normocephalic and atraumatic. Right Ear: Tympanic membrane, ear canal and external ear normal. Left Ear: Tympanic membrane, ear canal and external ear normal. Eyes: Conjunctiva/sclera: Conjunctivae normal. Pupils: Pupils are equal, round, and reactive to light. Cardiovascular: Rate and Rhythm: Normal rate and regular rhythm. Heart sounds: Normal heart sounds. Pulmonary: Effort: Pulmonary effort is normal. Breath sounds: Normal breath sounds. Musculoskeletal: Cervical back: Normal range of motion. Skin: General: Skin is warm and dry. Neurological: Mental Status: She is alert and oriented to person, place, and time. Psychiatric: Mood and Affect: Mood normal. ASSESSMENT/PLAN: Marnie was seen today for follow-up. Diagnoses and all orders for this visit: Myasthenia gravis ([facility]) Thymoma Follow-up: Keep appointments with specialist Follow up in six months or as needed Patient noted to have elevated BMI and the following intervention(s) were applied: encouragement to exercise. 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 ROS: Pertinent [...] RV in 2-3 months Quinten Ruiz MD [facility] [address] [place] [address] I spent a total of 30 minutes on the date of the service which included preparing to see the patient, [id number] patient care, completing clinical documentation, obtaining and/or [...] Eyelid droop: 0=None documented in this encounter [facility] 02-06-2024 Note HNO ID: [id number] Author: QUINTEN RUIZ MD Service: ? 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 ROS: Pertinent [...] RV in 2-3 months Quinten Ruiz MD [facility] [address] [place] [address] I spent a total of 30 minutes on the date of the service which included preparing to see the patient, [id number] patient care, completing clinical documentation, obtaining and/or [...] 1=Occurs, but not daily Eyelid droop: 0=None [facility] 01-03-2024 History of Present illness Narrative Radiation Oncology - Follow Up Note PATIENT NAME: Marnie Arana PATIENT DIAGNOSIS/PATIENT IDENTIFICATION: Ms. Arana is a 53-year-old woman diagnosed with Stage I, [id number] (AJCC)/Stage IIa ([place]) thymoma (Type AB) status [...] of said technology/software. documented in this encounter [facility] 01-03-2024 Note HNO ID: [id number] Author: ZEFERINO DESOUZA MD Service: ? Author Type: Physician Type: Progress Notes Filed: 01/15/2024 05:38 Note Text: Radiation Oncology - Follow Up Note PATIENT NAME: Marnie Arana PATIENT DIAGNOSIS/PATIENT IDENTIFICATION: Ms. Arana is a 53-year-old woman diagnosed with Stage I, [id number] (AJCC)/Stage IIa ([place]) thymoma (Type AB) status [...] result of the inadequacies/shortcomings of said technology/software. [facility] 12-18-2023 Telephone encounter Note Thanks! Zeferino [facility] Work Phone: 12-18-2023 Miscellaneous Notes Thanks! Zeferino Call placed to pt to check status post XRT. Pt states overall she is doing great. She has had no issues at all after treatment. She states I feel so good, it makes me wonder if it worked. She is currently on vacation and doing well. She will see Dr Desouza as scheduled on 01/02. Dilcia Price RN documented in this encounter [facility] 12-18-2023 Telephone encounter Note Call placed to pt to check status post XRT. Pt states overall she is doing great. She has had no issues at all after treatment. She states I feel so good, it makes me wonder if it worked. She is currently on vacation and doing well. She will see Dr Desouza as scheduled on 01/02. Dilcia Price RN [facility] 11-30-2023 History of Present illness Narrative [facility] Radiation Oncology Department RADIATION ONCOLOGY - COMPLETION NOTE PATIENT: MARNIE ARANA: 1970 DATES OF TREATMENT: 10/25/23 - 11/30/23 DIAGNOSIS: Ms. Arana is a 53-year-old woman diagnosed with Stage I, [id number] (AJCC)/Stage IIa ([place]) thymoma (Type AB) status [...] APRN.CNP ([facility]) Quinten Ruiz MD (CCF) David Trinh MD ([facility]) Ana María Mckeon MD [address] [facility] [id number] [address] documented in this encounter [facility] 11-28-2023 History of Present illness Narrative Radiation Oncology - On Treatment Review (OTR) Note PATIENT NAME: Marnie Arana PATIENT DIAGNOSIS: Ms. Arana is a 53-year-old woman diagnosed with Stage I, [id number] (AJCC)/Stage IIa ([place]) thymoma (Type AB) status [...] Zeferino Desouza MD documented in this encounter [facility] 11-26-2023 History of Present illness Narrative Radiation Oncology - On Treatment Review (OTR) Note PATIENT NAME: Marnie Arana PATIENT Zeferino Desouza MD documented in this encounter [facility] 11-21-2023 Nurse Note Status: Post-menopausal. [facility] 11-21-2023 Nurse Note Status: Post-menopausal. documented in this encounter [facility] 11-21-2023 History of Present illness Narrative Radiation Oncology - On Treatment Review (OTR) Note PATIENT NAME: Marnie Arana PATIENT DIAGNOSIS: Ms. Arana is a 53-year-old woman diagnosed with Stage I, [id number] (AJCC)/Stage IIa ([place]) thymoma (Type AB) status [...] Zeferino Desouza MD documented in this encounter [facility] 11-07-2023 Nurse Note Status: Post-menopausal. [facility] 11-07-2023 Nurse Note Status: Post-menopausal. documented in this encounter [facility] 11-07-2023 History of Present illness Narrative Radiation Oncology - On Treatment Review (OTR) Note PATIENT NAME: Marnie Arana PATIENT DIAGNOSIS: Ms. Arana is a 53-year-old woman diagnosed with Stage I, [id number] (AJCC)/Stage IIa ([place]) thymoma (Type AB) status [...] Zeferino Desouza MD documented in this encounter [facility] 10-31-2023 History of Present illness Narrative Radiation Oncology - On Treatment Review (OTR) Note PATIENT NAME: Marnie Arana PATIENT DIAGNOSIS: Ms. Arana is a 53-year-old woman diagnosed with Stage I, [id number] (AJCC)/Stage IIa ([place]) thymoma (Type AB) status [...] Zeferino Desouza MD documented in this encounter [facility] 10-31-2023 Nurse Note Status: Patient states there is no possibility she is at this time. [facility] 10-31-2023 Nurse Note Status: Patient states there is no possibility she is at this time. documented in this encounter [facility] 10-29-2023 Instructions David Trinh MD - 10/29/2023 4:52 PM EDT We [...] in 3-4 months. documented in this encounter [facility] 10-29-2023 History of Present illness Narrative [facility] [place] [facility] Note- Established patient Provider: David Trinh MD (PA Fellow)/ Quinten Ruiz MD (PA Staff) Date of last clinic visit: 07/16/23 [...] fatigue become worse. She saw her local custom shoemaker who did not find objective evidence of [...] office via telephone and/or MyChart if no communication of results received by expected turnaround time, as discussed during the visit. To aid with communication, patients (and primary care physicians) can sign up for [employer] (or [employer]), which allows online appointment scheduling, transmission of labs results and chart notes, and secure email communication. To establish either account, visit [email or web address]. David Trinh MD [facility] Fellow, Neuromuscular Center [facility] Neurological [place] In the service of Quinten Ruiz MD (NM Staff) [- clinic note not considered final until co-signed by NM Staff] Primary care provider: Ana María Mckeon MD ([facility]) [address] [place] [address] I saw and evaluated the patient, reviewed and discussed the yañez elements and findings with the fellow, and agree with and edited where appropriate the above note. Medical Decision Making: Problems: Low: Stable chronic illness Data: Unique test result(s) reviewed: 1 Risk: Moderate: Drug management Medical Decision Making Level: 3 - Low Quinten Ruiz MD documented in this encounter [facility] 10-29-2023 History of Present illness Narrative Radiology [...] PATIENT PRESENTS WITH AN IMPLANTABLE OR ATTACHED FILENET P8 DEVELOPER: No RADIOLOGY DEPARTMENT: General X-ray: Exam(s) Completed: Chest X-Ray PERIPHERAL IV DATA: Not applicable SIGNED BY: RT Pura(R) October 29, 2023 1:26 PM documented in this encounter [facility] 10-29-2023 History of Present illness Narrative Images from the original note were not included. [facility] - OUTPATIENT THORACIC SURGERY CLINIC NOTE PT NAME: Marnie Arana [facility] NO: [id number] THORACIC SURGEON: Jasiel Turner M.D. DATE OF [...] been determined by the performing laboratory within [facility] s [facility] Pathology and Laboratory Medicine [place] ([facility], [facility], [facility], [facility], [facility], [facility], or [facility]) in a manner consistent with CLIA [...] vision, symptoms began 05/2023. 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 - neurology management with Dr Trinh, f/u 10/29/23 Kandy Vallecillo APRN.STOCK PREPARATION OPERATOR documented in this encounter [facility] 10-16-2023 History of Present illness Narrative Radiology [...] PATIENT PRESENTS WITH AN IMPLANTABLE OR ATTACHED FILENET P8 DEVELOPER: No RADIOLOGY DEPARTMENT: CT; Exam(s) Completed: Chest PERIPHERAL IV DATA: Site assessment: Clean,Dry and Intact, Site disposition Discontinued SIGNED BY: RT Beau(R) October 16, 2023 12:33 PM documented in this encounter [facility] 10-12-2023 History of Present illness Narrative MARNIE ARANA Ange [id number] 10/12/2023 [facility] Radiation Oncology Department SIMULATION NOTE DATE OF SIMULATION: 10/12/2023 THERAPIST: Key Day MACHINE: [employer] DIAGNOSIS: Malignant neoplasm of anterior [id number] AREA: THORAX CONTRAST: IV <Select> Consent in Epic: Yes PATIENT POSITION: Supine. FIXATION DEVICE: In order to achieve accurate and reproducible treatments, the patient is immobilized with THE ORFIT AIO SYSTEM. 4DCT WAS UTILIZED AT [facility] 50ML OF OMNI 300 WAS [...] CARL 45:27 PM documented in this encounter [facility] 10-12-2023 History of Present illness Narrative SUMITYANETH GarciaKELLE Cassidy [id number] 10/12/2023 [facility] Department of Radiation Oncology Treatment Planning [...] M.D. 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 Patient has an Onbody or Implanted device: No Signed by: Zaira Vines LPN documented in this encounter [facility] 10-11-2023 History of Present illness Narrative Images from the original note were not included. Radiation Oncology - New Patient/Consult Note PATIENT NAME: Marnie Arana PATIENT REQUESTING PHYSICIAN: Dr. Jasiel Turner DIAGNOSIS: Stage I, [id number] (AJCC)/Stage IIa ([place]) thymoma (Type AB) PATIENT IDENTIFICATION: This patient was seen in the Department of Radiation Oncology at the [facility] with Zeferino Desouza MD. She was accompanied today by her spouse. Final recommendations will be communicated back to the requesting physician by way of the shared medical record, or letter to requesting physician via US mail. HISTORY OF PRESENT ILLNESS: Ms. Arana is a 53-year-old woman from [place], [place], who was diagnosed with myasthenia gravis when she presented in May 2023 with symptoms of double vision. Initial workup by her custom shoemaker included a CT of her orbits which [...] has 2 children, and lives in the [place], [place] area. 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 This document has been created with the use of voice recognition technology. It may contain inaccuracies, misspellings, inaccurate syntax or inappropriate word context that are a result of the inadequacies/shortcomings of said technology/software. documented in this encounter [facility] 10-11-2023 Nurse Note Pacemaker/Defibrillator?N Previous Cancer(s)?N Previous Radiation?N Lupus/Scleroderma?N On body monitoring device?N documented in this encounter [facility] 09-26-2023 Miscellaneous Notes see letters. RTW on 10/15/2022 Kandi Luna RN, BSN, [facility] documented in this encounter [facility] 09-21-2023 Instructions Kandy Vallecillo APRN.STOCK PREPARATION OPERATOR - 09/21/2023 4:12 PM EDT -Shower regularly [...] 4 weeks after surgery. Do not perform rug weaver such as laundry and vacuuming. Do not [...] a motor vehicle. documented in this encounter [facility] 09-21-2023 History of Present illness Narrative Images from the original note were not included. [facility] - OUTPATIENT THORACIC SURGERY CLINIC NOTE PT NAME: Marnie Arana [facility] NO: [id number] THORACIC SURGEON: Jasiel Turner M.D. DATE OF [...] vision, symptoms began 05/2023. 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 - neurology management with Dr Trinh, f/u 10/29/23 Kandy Vallecillo APRN.ISABELL documented in this encounter [facility] 09-21-2023 History of Present illness Narrative Radiology [...] PATIENT PRESENTS WITH AN IMPLANTABLE OR ATTACHED FILENET P8 DEVELOPER: No RADIOLOGY DEPARTMENT: General X-ray: Exam(s) Completed: Chest X-Ray PERIPHERAL IV DATA: Not applicable SIGNED BY: RT Pura(R) September 21, 2023 3:12 PM documented in this encounter [facility] 09-21-2023 Miscellaneous Notes [facility] paperwork completed and returned to military administrative technician for disbursement Off duty 09/12/2023 RTW 10/16/2023 Kandi Luna RN, BSN, [facility] Thoracic Nurse Practice Mgr Received [facility] paperwork for patient. Paperwork given to Thoracic NPM for completion. After completion, paperwork is to be faxed to Attn: HR Kyle Martinez. Signed PHI release attached Unknown Dates: 08/06/23 Consult - Referring provider: Ana María Mckeon MD Diagnosis: Myasthenia gravis 09-12-23 Pre-Op 09-13-23 Surgery: ICD-10: G70.00 CPT: 68719 Morenita Bernstein documented in this encounter [facility] 09-21-2023 Miscellaneous Notes We are calling to check on how you are doing since our last phone call. Are you having any medical concerns we can help you with today? -No new medical concerns today. Call Outcome: All Clear All clear and closing statement given. RN verified patients name and date of . Carley Vick RN documented in this encounter [facility] 09-17-2023 Miscellaneous Notes Transition of Care Additional [...] Discharge Specialty: Endocrine Name of Discharging Facility: [facility] Date of Facility Discharge: 09/15/23 Date of Interactive Contact and Name of Resident Caregiver: Spoke with Yaneth on 09/18/23 Medication Review [...] little better each day Following up with [facility] care team Education Provided by ACN to [...] Contact phone number for next two weeks: [phone] (home) Primary service: Thoracic Surgery Patient verbalized understanding CN contact information for Toma Eid RN given. Communication with Home Health Agencies and Other Services Utilized/Needed by the Patient: NA documented in this encounter [email or web address] 09-17-2023 Telephone encounter Note Transition of Care [...] Discharge Specialty: Endocrine Name of Discharging Facility: [facility] Date of Facility Discharge: 09/15/23 Date of Interactive Contact and Name of Resident Caregiver: Spoke with Yaneth on 09/18/23 Medication Review [...] little better each day Following up with [facility] care team Education Provided by ACN to [...] Contact phone number for next two weeks: [phone] (home) Primary service: Thoracic Surgery Patient verbalized understanding CN contact information for Toma Eid RN given. Communication with Home Health Agencies and Other Services Utilized/Needed by the Patient: NA [email or web address] Work Phone: 09-17-2023 Miscellaneous Notes 1. Have [...] full name. All clear. Closing statement given. Chris Busby RN documented in this encounter [facility] 09-12-2023 History of Present illness Narrative I have read and reviewed the documentation and agree. I wish to add the followingI wish to add the following findings which will be communicated back to the requesting physician. Jasiel Turner MD [facility] STAFF PHYSICIAN NOTE OF PERSONAL [...] Gato MD) - ok without CBC. Kailee Polo RN CHART COPY DO NOT DISCARD . [...] CCT 07/03/2023 and CXR 09/12/2023 . Kailee Polo, RN PHYSICAL EXAM BP 142/69 Pulse 77 [...] Jasiel Turner MD documented in this encounter [facility] 09-12-2023 History of Present illness Narrative Cardiothoracic [...] and consent discussed: yes. Patient / Responsible Green Party agrees to proceed: yes Patient / Surrogate agrees to blood products: Yes Instructions Given to Patient: Instructions located in the after visit summary. Patient given verbal and written preop instructions and voices comprehension and compliance. Signature: Qi Hoskins MD Patient Name: Marnie Arana Date: September 12, 2023 Time: 11:32 AM Pager/Contact #: documented in this encounter [facility] 09-12-2023 History of Present illness Narrative Radiology [...] PATIENT PRESENTS WITH AN IMPLANTABLE OR ATTACHED FILENET P8 DEVELOPER: No RADIOLOGY DEPARTMENT: General X-ray: Exam(s) Completed: Chest X-Ray PERIPHERAL IV DATA: Not applicable SIGNED BY: RT Pura(Carlos) September 12, 2023 12:11 PM documented in this encounter [facility] 09-05-2023 History of Present illness Narrative Images from the original note were not included. [address] [facility] [id number] Subjective: Marnie Arana is a 53 y.o. [...] Problem List Diagnosis Date Noted Myasthenia gravis ([facility]) 06/13/2023 History reviewed. No pertinent [...] for this visit: Wellness examination Myasthenia gravis ([facility]) Plan Outpatient Medications Prior to [...] 5.)Labs not due 6.)Patient to present to [facility] for thymectomy. SO Briones 09/05/23 1530 documented in this encounter [email or web address] 08-28-2023 Miscellaneous Notes Radiology Service Progress Note [...] PATIENT PRESENTS WITH AN IMPLANTABLE OR ATTACHED FILENET P8 DEVELOPER: No ALLERGIES: Reviewed and unchanged CONTRAST ALLERGY: NO. EXAM: MRI - CONTRAST TYPE: GROUP II PERIPHERAL IV DATA: Ambulatory: A peripheral IV was started in the Right with a Angio cath: 24 gauge. RADIOLOGY DEPARTMENT: MR; Exam(s) Completed: Body: Liver (routine) SIGNATURE: Roxanne Grigsby RT(R), RT Angelica(R) PATIENT NAME: Marnie Arana DATE: August 28, 2023 TIME: 10:29 AM documented in this encounter [facility] 08-24-2023 History of Present illness Narrative Surgery : Robotic b/l thymectomy OR 09/13/2023 TCI with cxr, EKG, echo, labs, 09/12/2023 Medications : Hold vitamin D 7 days prior to surgery , along with any over-the counter vitamins, supplements or NSAIDS (denies taking) Transfusion: None LOS 1-2 days Diet : n/a C 2.5 -3 Neurology cleared David Trinh MD No preop treatment needed - 07/16/2023 Preop and post op expectations reviewed Recovery 4 weeks FMLA discussed, to fax forms to office for completion documented in this encounter [facility] 08-17-2023 History of Present illness Narrative Images from the original note were not included. VIRTUAL VISIT PROGRESS NOTE This is a virtual visit using [email or web address] Video Visit. It required patient-provider interaction for the medical decision making as documented below. I have communicated my name and active licensure. The patient's identity and physical location were verified at the time of this visit. Either the patient or their legal medical claims representative has been informed of the risks [...] CT CHEST W CONT INDICATION: Myasthenia gravis ([facility]-HCC). TECHNIQUE: * Contiguous axial CT images [...] by Ata Cota on 07/03/2023 4:08 PM Exam End: 07/03/23 11:42 AM Specimen Collected: 07/03/23 3:49 PM Last Resulted: 07/03/23 4:08 PM Received From: [email or web address] Result Received: 08/06/23 6:39 AM ASSESSMENT/PLAN: 53 yo female patient with MG and thymoma, presenting for eval and management of thyroid nodules. Thyroid nodules picked up incidentally on CT chest, Jun 2023. TFts- May 2023, nl TSH and free T3, slightly low free T4. She is not on Biotin. She is on Prednisone 20 mg daily for MG. Clinically euthyroid. Discussed with patient management of thyroid nodules. Discussed incidental finding of thyroid nodules on chest/neck imaging is not infrequent. Need to evaluate further with thyroid US. May or may not need FNA. Get thyroid US. Of note, Graves disease can be associated with thymic hyperplasia. Latter usually resolves/improves with treating hyperthyroidism, and patients do not usually require surgery. Initial thyroid labs, as above, certainly are not c/w hyperthyroidism that would suggest Graves, but would repeat with antibodies. F/U TBD. Anne Welch MD documented in this encounter [facility] 01-19-2021 Note OPERATIVE NOTE OPERATION DATE: 01-19-21 [...] in 10 years for screening. cc:Dr. Adorno. [facility] Signed and Approved by: DR ODELL JOHNSON . 01/21/2021 08:06:00 [facility] 01-13-2021 Note Chief Complaint referral for colonsocopy [facility] Staff 50 year old female presents on [...] of colon) plan colonoscopy under anesthesia at [facility], informed consent obtained. Follow-up No [...] Recorded SARS-CoV-2 (COVID-19) mRNA-1273 vaccine 09/01/2020 Recorded [facility] Comment on above: Result Comment: Elec tronically Signed By: ALEX CARVER, Odell Good\Date and Time Signed: 01/13/21 10:26 EDT Evaluation note Diagnosis Myasthenia gravis (HCC)- Primary Myasthenia gravis without exacerbation Preoperative testing Preoperative examination, unspecified Pre-procedure lab exam Pre-procedural laboratory examination documented [facility] this encounter [facility] Diagnosis Mediastinal mass Swelling, mass, or lump in chest Lesion of liver Other specified disorders of liver Myasthenia gravis (HCC) Myasthenia gravis without exacerbation documented [facility] this encounter [facility] Diagnosis Encounter for preoperative anesthesiology assessment for thoracic surgery- Primary Myasthenia gravis (HCC) Myasthenia gravis without exacerbation documented [facility] this encounter [facility] Diagnosis Myasthenia gravis (HCC)- Primary Myasthenia gravis without exacerbation Benign neoplasm of thymus Myasthenia gravis (HCC) Myasthenia gravis without exacerbation documented [facility] this encounter [facility] Diagnosis Myasthenia gravis (HCC) Myasthenia gravis without exacerbation Preoperative testing Preoperative examination, unspecified Pre-procedure lab exam Pre-procedural laboratory examination documented [facility] this encounter [facility] Diagnosis Myasthenia gravis (HCC)- Primary Myasthenia gravis without exacerbation Thymoma Benign neoplasm of thymus documented in this encounter [facility] note* Diagnosis Follow-up examination following surgery Follow-up examination, following unspecified surgery documented in this encounter [facility] note* Diagnosis Multiple thyroid nodules Nontoxic multinodular goiter documented in this encounter [facility] note* Diagnosis Thymoma- Primary Benign neoplasm of thymus documented in this encounter [facility] note* Diagnosis Thymoma- Primary Benign neoplasm of thymus documented in this encounter [facility] note* Diagnosis Thymoma- Primary Benign neoplasm of thymus documented in this encounter [facility] note* Diagnosis 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 thymus Myasthenia gravis (HCC) Myasthenia gravis without exacerbation documented in this encounter [facility] note* Diagnosis Myasthenia gravis (HCC) Myasthenia gravis without exacerbation Thymoma Benign neoplasm of thymus documented in this encounter [facility] note* Diagnosis Myasthenia gravis (HCC)- Primary Myasthenia gravis without exacerbation documented in this encounter [facility] note* Diagnosis Thymoma- Primary Benign neoplasm of thymus documented in this encounter [facility] note* Diagnosis Thymoma- Primary Benign neoplasm of thymus documented in this encounter [facility] note* Diagnosis Thymoma- Primary Benign neoplasm of thymus documented in this encounter [facility] note* Diagnosis Myasthenia gravis (HCC) Myasthenia gravis without exacerbation Postoperative pain Other acute postoperative pain Thymoma Benign neoplasm of thymus documented in this encounter [facility] note* Diagnosis Thymoma- Primary Benign neoplasm of thymus documented in this encounter [facility] note* Diagnosis Thymoma- Primary Benign neoplasm of thymus documented in this encounter [facility] note* Diagnosis Myasthenia gravis (HCC)- Primary Myasthenia gravis without exacerbation documented in this encounter [facility] note* Diagnosis Malignant neoplasm of thymus (HCC) Malignant neoplasm of thymus documented in this encounter [facility] note* Diagnosis Well woman exam with routine gynecological exam Routine gynecological examination Breast cancer screening by mammogram Postmenopausal state Asymptomatic postmenopausal status (age-related) (natural) documented in this encounter [facility] note* Diagnosis 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 thymus Thymoma Benign neoplasm of thymus documented [facility] encounter [facility] Diagnosis Myasthenia gravis (HCC)- Primary Myasthenia gravis without exacerbation [facility] Diagnosis Malignant neoplasm of thymus (HCC) Malignant neoplasm of thymus documented [facility] this encounter [facility] Diagnosis Thymoma- Primary Benign neoplasm of thymus documented in this encounter [facility]* Diagnosis Abnormal results of thyroid function studies- Primary Nonspecific abnormal results of thyroid function study Mediastinal mass Swelling, mass, or lump in chest Myasthenia gravis (HCC) Myasthenia gravis without exacerbation Multiple thyroid nodules Nontoxic multinodular goiter documented [facility] this encounter [facility]* Diagnosis Myasthenia gravis (CMS/HCC)- Primary Myasthenia gravis without exacerbation Thymoma Benign neoplasm of thymus documented in this encounter [facility]* Diagnosis Wellness examination- Primary Myasthenia gravis (CMS-HCC) Myasthenia gravis without exacerbation [facility] Diagnosis Myasthenia gravis (CMS-HCC)- Primary Myasthenia gravis without exacerbation Thymoma Benign neoplasm of thymus documented in this encounter [facility]* Diagnosis Myasthenia gravis (CMS-HCC)- Primary Myasthenia gravis without exacerbation Thymoma Benign neoplasm of thymus Acute non-recurrent maxillary sinusitis [facility]* Diagnosis Wellness examination- Primary Myasthenia gravis (CMS-HCC) Myasthenia gravis without exacerbation Thymoma Benign neoplasm of thymus [facility]* Diagnosis Acute right ankle pain- Primary Myasthenia gravis (CMS-HCC) Myasthenia gravis without exacerbation documented in this encounter [facility]* Diagnosis Posterior tibial tendinitis of right lower extremity- Primary Valgus deformity, not elsewhere classified, right ankle Equinus contracture of right ankle Right foot pain Pain in soft tissues of limb Difficulty walking Difficulty in walking Instability of right ankle joint documented in this encounter [facility] HealthcareInstructions* Attachments The following attachments cannot be sent through Care Everywhere. * Myasthenia gravis ([place]an) * Yearly Physical for Adults ([place]ankan) documented in this encounterPro[facility]ica [facility] SystemInstructionsNot on file documented in [facility] encounterK[facility]* Attachments The following attachments cannot be sent through Care Everywhere. * Myasthenia Gravis ([place]ank[place]) documented in [facility]* Attachments The following attachments cannot be sent through Care Everywhere. * Myasthenia gravis ([place]) documented in this encounterPro[facility] CenterInstructions* Attachments The following attachments cannot be sent through Care Everywhere. * Myasthenia gravis ([place]) documented in this encounterPro[facility]* Attachments The following attachments cannot be sent through Care Everywhere. * Managing acute pain at home ([place]an) documented in this encounterK[facility] TownshipReason for referral (narrative)* Outpatient Procedure (Routine) - Pending Review Specialty Diagnoses / Procedures Referred By Harriet garcia Referred To Contact [facility] Diagnoses Myasthenia gravis (HCC) Preoperative testing Pre-procedure lab exam Procedures ECHO ECHO TTHRC R-T 2D W/WOM-MODE COMPL SPEC&COLR D Jasiel Turner MD [address] [place] [address] [address] Referral ID Status Reason Start Date Expiration Date Visits Requested Visits Authorized [id number] Pending Review Auto-Generat ed Referral 08/24/2023 08/23/2024 1 1 * Outpatient Procedure (Urgent) - Pending Review Specialty Diagnoses / Procedures Referred By Harriet garcia Referred To Contact [facility] Diagnoses Myasthenia gravis (HCC) Preoperative testing Pre-procedure lab exam Procedures ECG COMPLETE ECG ROUTINE ECG W/LEAST 12 LDS W/I&R Jasiel Turner MD [address] [place] [address] [address] Referral ID Status Reason Start Date Expiration Date Visits Requested Visits Authorized [id number] Pending Review Auto-Generat ed Referral 08/24/2023 08/23/2024 1 1 [facility] for referral (narrative)* Diagnostic Procedure Only (Routine) - Authorized Specialty Diagnoses / Procedures Referred By Harriet garcia Referred To Contact [facility] Diagnoses Multiple thyroid nodules Procedures US THYROID/PARATHYROID US SOFT TISSUE HEAD & NECK REAL TIME IMGE Anne Johns MD [address] [place] [address] [place] [address] Referral ID Status Reason Start Date Expiration Date Visits Requested Visits Authorized [id number] Authorized Auto-Generat ed Referral 08/17/2023 09/15/2024 1 1 [facility] for visit Narrative* Diagnostic Procedure Only (Routine) - Closed Specialty Diagnoses / Procedures Referred By Harriet garcia Referred To Contact [facility] Diagnoses Multiple thyroid nodules Procedures US THYROID/PARATHYROID US SOFT TISSUE HEAD & NECK REAL TIME IMGE Anne Johns MD [address] [place] [address] [place] [address] Referral ID Status Reason Start Date Expiration Date V isits Requested Visits Authorized [id number] Closed Auto-Generate d Referral 08/17/2023 09/15/2024 1 1 [facility] Summary Purpose Family History No Family History Records FoundNo Family History Records FoundNo Family History Records FoundNo Family History Records FoundNo Family History Records FoundNo Family History Records FoundNo Family History Records Found Advance Directives Documents on File Type Date Recorded 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 Advance Directive(s) 09/12/2023 2:51 PM Documents on File Type Date 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 Advance Directive(s) 09/12/2023 2:51 PM Reason for Referral Specialty Diagnoses / Procedures Referred By Harriet garcia Referred To Contact [facility] Diagnoses Mediastinal mass Lesion of liver Procedures MRI LIVER WO/W IVCON MRI ABDOMEN W/O & W/CONTRAST MATERIAL Jasiel Turner MD [address] [place] [address] [place] [address] Referral ID Status Reason Start Date Expiration Date V isits Requested Visits Authorized [id number] Closed Auto-Generate d Referral 07/13/2023 08/11/2024 1 1 Specialty Diagnoses / Procedures Referred By Contac t Referred To Contact CT IMAGING Diagnoses Malignant neoplasm of thymus (HCC) Procedures CT CHEST W IVCON DIAGNOSTIC COMPUTED TOMOGRAPHY THORAX W/CONTRAST Zeferino Desouza MD [address] [place] [address] [place] [address] [place] [address] Referral ID Status Reason Start Date Expiration Date V isits Requested Visits Authorized [id number] Closed Auto-Generate d Referral 10/11/2023 11/09/2024 1 1 Specialty Diagnoses / Procedures Referred By Contac t Referred To Contact CT IMAGING Diagnoses Malignant neoplasm of thymus (HCC) Procedures CT CHEST W IVCON DIAGNOSTIC COMPUTED TOMOGRAPHY THORAX W/CONTRAST Kandy Vallecillo, QUALITY CONTROL ENGINEERING TECHNICIAN.STOCK PREPARATION OPERATOR [address] [place] [address] [place] [address] Referral ID Status Reason Start Date Expiration Date Visits Requested Visits Authorized [id number] Authorized Auto-Generat ed Referral 10/29/2023 11/27/2024 1 1 Referral ID Status Reason Start Date Expiration Date Visits Requested Visits Authorized [id number] Pending Review Auto-Generat ed Referral 05/29/2025 1 1 Referral ID Status Reason Start Date Expiration Date V isits Requested Visits Authorized [id number] Closed Auto-Generate d Referral 10/29/2023 11/27/2024 1 1 Additional Source Comments INFORMATION SOURCE (unrecogn ized section and content) DATE CREATED AUTHOR 04/22/2021 [facility] DATE CREATED AUTHOR AUTHOR'S ORGANIZ ATION 06/29/2021 [facility] DATE CREATED AUTHOR AUTHOR'S ORGANIZ ATION 08/29/2023 [facility] DATE CREATED AUTHOR AUTHOR'S ORGANIZ ATION 07/22/2024 [facility] DATE CREATED AUTHOR AUTHOR'S ORGANIZ ATION 10/12/2024 [facility] DATE CREATED AUTHOR AUTHOR'S ORGANIZ ATION 12/03/2024 [facility] DATE CREATED AUTHOR AUTHOR'S ORGANIZ ATION 02/14/2025 [facility] Source Comments (unrecognize d section and content) In the event this informatio n is protected by the Federal Confidentiality of Alcohol and Drug Abuse Patient Records regulations: The Federal rules restrict any use of the information to criminally investigate or prosecute any alcohol or drug abuse patient.[facility] HospitalIn the event this information is protected by the Federal Confidentiality of Alcohol and Drug Abuse Patient Records regulations: The Federal rules restrict any use of the information to criminally investigate or prosecute any alcohol or drug abuse patient.[facility] HospitalIn the event this information is protected by the Federal Confidentiality of Alcohol and Drug Abuse Patient Records regulations: The Federal rules restrict any use of the information to criminally investigate or prosecute any alcohol or drug abuse patient.[facility] HospitalIn the event this information is protected by the Federal Confidentiality of Alcohol and Drug Abuse Patient Records regulations: The Federal rules restrict any use of the information to criminally investigate or prosecute any alcohol or drug abuse patient.[facility] HospitalIn the event this information is protected by the Federal Confidentiality of Alcohol and Drug Abuse Patient Records regulations: The Federal rules restrict any use of the information to criminally investigate or prosecute any alcohol or drug abuse patient.[facility] HospitalIn the event this information is protected by the Federal Confidentiality of Alcohol and Drug Abuse Patient Records regulations: The Federal rules restrict any use of the information to criminally investigate or prosecute any alcohol or drug abuse patient.[facility] HospitalIn the event this information is protected by the Federal Confidentiality of Alcohol and Drug Abuse Patient Records regulations: The Federal rules restrict any use of the information to criminally investigate or prosecute any alcohol or drug abuse patient.[facility] HospitalIn the event this information is protected by the Federal Confidentiality of Alcohol and Drug Abuse Patient Records regulations: The Federal rules restrict any use of the information to criminally investigate or prosecute any alcohol or drug abuse patient.[facility] HospitalIn the event this information is protected by the Federal Confidentiality of Alcohol and Drug Abuse Patient Records regulations: The Federal rules restrict any use of the information to criminally investigate or prosecute any alcohol or drug abuse patient.[facility] HospitalIn the event this information is protected by the Federal Confidentiality of Alcohol and Drug Abuse Patient Records regulations: The Federal rules restrict any use of the information to criminally investigate or prosecute any alcohol or drug abuse patient.[facility] HospitalIn the event this information is protected by the Federal Confidentiality of Alcohol and Drug Abuse Patient Records regulations: The Federal rules restrict any use of the information to criminally investigate or prosecute any alcohol or drug abuse patient.[facility] HospitalIn the event this information is protected by the Federal Confidentiality of Alcohol and Drug Abuse Patient Records regulations: The Federal rules restrict any use of the information to criminally investigate or prosecute any alcohol or drug abuse patient.[facility] HospitalIn the event this information is protected by the Federal Confidentiality of Alcohol and Drug Abuse Patient Records regulations: The Federal rules restrict any use of the information to criminally investigate or prosecute any alcohol or drug abuse patient.[facility] HospitalIn the event this information is protected by the Federal Confidentiality of Alcohol and Drug Abuse Patient Records regulations: The Federal rules restrict any use of the information to criminally investigate or prosecute any alcohol or drug abuse patient.[facility] HospitalIn the event this information is protected by the Federal Confidentiality of Alcohol and Drug Abuse Patient Records regulations: The Federal rules restrict any use of the information to criminally investigate or prosecute any alcohol or drug abuse patient.[facility] HospitalIn the event this information is protected by the Federal Confidentiality of Alcohol and Drug Abuse Patient Records regulations: The Federal rules restrict any use of the information to criminally investigate or prosecute any alcohol or drug abuse patient.[facility] HospitalIn the event this information is protected by the Federal Confidentiality of Alcohol and Drug Abuse Patient Records regulations: The Federal rules restrict any use of the information to criminally investigate or prosecute any alcohol or drug abuse patient.[facility] HospitalIn the event this information is protected by the Federal Confidentiality of Alcohol and Drug Abuse Patient Records regulations: The Federal rules restrict any use of the information to criminally investigate or prosecute any alcohol or drug abuse patient.[facility] HospitalIn the event this information is protected by the Federal Confidentiality of Alcohol and Drug Abuse Patient Records regulations: The Federal rules restrict any use of the information to criminally investigate or prosecute any alcohol or drug abuse patient.[facility] HospitalIn the event this information is protected by the Federal Confidentiality of Alcohol and Drug Abuse Patient Records regulations: The Federal rules restrict any use of the information to criminally investigate or prosecute any alcohol or drug abuse patient.[facility] HospitalIn the event this information is protected by the Federal Confidentiality of Alcohol and Drug Abuse Patient Records regulations: The Federal rules restrict any use of the information to criminally investigate or prosecute any alcohol or drug abuse patient.[facility] HospitalIn the event this information is protected by the Federal Confidentiality of Alcohol and Drug Abuse Patient Records regulations: The Federal rules restrict any use of the information to criminally investigate or prosecute any alcohol or drug abuse patient.[facility] HospitalIn the event this information is protected by the Federal Confidentiality of Alcohol and Drug Abuse Patient Records regulations: The Federal rules restrict any use of the information to criminally investigate or prosecute any alcohol or drug abuse patient.[facility] Hospital[facility] the event this information is protected by the Federal Confidentiality of Alcohol and Drug Abuse Patient Records regulations: The Federal rules restrict any use of the information to criminally investigate or prosecute any alcohol or drug abuse patient.[facility] HospitalIn the event this information is protected by the Federal Confidentiality of Alcohol and Drug Abuse Patient Records regulations: The Federal rules restrict any use of the information to criminally investigate or prosecute any alcohol or drug abuse patient.[facility] HospitalIn the event this information is protected by the Federal Confidentiality of Alcohol and Drug Abuse Patient Records regulations: The Federal rules restrict any use of the information to criminally investigate or prosecute any alcohol or drug abuse patient.[facility] HospitalIn the event this information is protected by the Federal Confidentiality of Alcohol and Drug Abuse Patient Records regulations: The Federal rules restrict any use of the information to criminally investigate or prosecute any alcohol or drug abuse patient.[facility] HospitalIn the event this information is protected by the Federal Confidentiality of Alcohol and Drug Abuse Patient Records regulations: The Federal rules restrict any use of the information to criminally investigate or prosecute any alcohol or drug abuse patient.[facility] HospitalIn the event this information is protected by the Federal Confidentiality of Alcohol and Drug Abuse Patient Records regulations: The Federal rules restrict any use of the information to criminally investigate or prosecute any alcohol or drug abuse patient.[facility] HospitalIn the event this information is protected by the Federal Confidentiality of Alcohol and Drug Abuse Patient Records regulations: The Federal rules restrict any use of the information to criminally investigate or prosecute any alcohol or drug abuse patient.[facility] HospitalIn the event this information is protected by the Federal Confidentiality of Alcohol and Drug Abuse Patient Records regulations: The Federal rules restrict any use of the information to criminally investigate or prosecute any alcohol or drug abuse patient.[facility] HospitalIn the event this information is protected by the Federal Confidentiality of Alcohol and Drug Abuse Patient Records regulations: The Federal rules restrict any use of the information to criminally investigate or prosecute any alcohol or drug abuse patient.[facility] HospitalIn the event this information is protected by the Federal Confidentiality of Alcohol and Drug Abuse Patient Records regulations: The Federal rules restrict any use of the information to criminally investigate or prosecute any alcohol or drug abuse patient.[facility] HospitalIn the event this information is protected by the Federal Confidentiality of Alcohol and Drug Abuse Patient Records regulations: The Federal rules restrict any use of the information to criminally investigate or prosecute any alcohol or drug abuse patient.[facility] HospitalIn the event this information is protected by the Federal Confidentiality of Alcohol and Drug Abuse Patient Records regulations: The Federal rules restrict any use of the information to criminally investigate or prosecute any alcohol or drug abuse patient.[facility] HospitalIn the event this information is protected by the Federal Confidentiality of Alcohol and Drug Abuse Patient Records regulations: The Federal rules restrict any use of the information to criminally investigate or prosecute any alcohol or drug abuse patient.[facility] HospitalIn the event this information is protected by the Federal Confidentiality of Alcohol and Drug Abuse Patient Records regulations: The Federal rules restrict any use of the information to criminally investigate or prosecute any alcohol or drug abuse patient.[facility] HospitalIn the event this information is protected by the Federal Confidentiality of Alcohol and Drug Abuse Patient Records regulations: The Federal rules restrict any use of the information to criminally investigate or prosecute any alcohol or drug abuse patient.[facility] HospitalIn the event this information is protected by the Federal Confidentiality of Alcohol and Drug Abuse Patient Records regulations: The Federal rules restrict any use of the information to criminally investigate or prosecute any alcohol or drug abuse patient.[facility] HospitalIn the event this information is protected by the Federal Confidentiality of Alcohol and Drug Abuse Patient Records regulations: The Federal rules restrict any use of the information to criminally investigate or prosecute any alcohol or drug abuse patient.[facility] HospitalIn the event this information is protected by the Federal Confidentiality of Alcohol and Drug Abuse Patient Records regulations: The Federal rules restrict any use of the information to criminally investigate or prosecute any alcohol or drug abuse patient.[facility] Reason for Visit (unrecogniz ed section and content) Reason Comments Schedule Surgery Robotic b/l thymecto my Specialty Diagnoses / Procedures Referred By Contac t Referred To Contact MR IMAGING Diagnoses Mediastinal mass Lesion of liver Procedures MRI LIVER WO/W IVCON MRI ABDOMEN W/O & W/CONTRAST MATERIAL Jasiel Turner MD [address] [place] [address] [place] [address] Referral ID Status Reason Start Date Expiration Date V isits Requested Visits Authorized [id number] Closed Auto-Generate d Referral 07/13/2023 08/11/2024 1 1 Reason Comments Pre-Op Exam Reason Comments Radio Main J1 Reason Comments Follow Up Phone Call RC f/u all clear Reason Comments Follow Up Phone Call RC follow up call a ll clear. Reason Comments FMLA Paperwork Reason Comments Return To Work Letter Reason Comments Patient Education Reason Comments Consult Specialty Diagnoses / Procedures Referred By Contac t Referred To Contact Radiation Oncology Diagnoses Thymoma Procedures RAD/ONC CONSULT OFFICE/OUTPATIENT [facility] 60 MINUTES Kandy Vallecillo, QUALITY CONTROL ENGINEERING TECHNICIAN.STOCK PREPARATION OPERATOR [address] [place] [id number] Referral ID Status Reason Start Date Expiration Date V isits Requested Visits Authorized [id number] Closed PCP Requested Referral 10/05/2023 10/04/2024 1 [...] 27 FX plus sim Zeferino Desouza MD [address] [place] [address] [place] [address] Zeferino Desouza MD [address] [place] [address] [place] [address] Referral ID Status Reason Start Date Expiration Date Visits Re quested Visits Authorized [id number] Closed 09/28/2023 01/11/2024 [address] Specialty Diagnoses / Procedures Referred By Contac t Referred To Contact CT IMAGING Diagnoses Malignant neoplasm of thymus (HCC) Procedures CT CHEST W IVCON DIAGNOSTIC COMPUTED TOMOGRAPHY THORAX W/CONTRAST Zeferino Desouza MD [address] [facility] [place] [address] Ct Imaging [facility]95 Referral ID Status Reason Start Date Expiration Date V isits Requested Visits Authorized [id number] Closed Auto-Generate d Referral 10/11/2023 11/09/2024 1 1 Reason Comments Well Women Visit Reason Comments Established Patient Follow Up Specialty Diagnoses / Procedures Referred By Contac t Referred To Contact CT IMAGING Diagnoses Malignant neoplasm of thymus (HCC) Procedures CT CHEST W IVCON DIAGNOSTIC COMPUTED TOMOGRAPHY THORAX W/CONTRAST Wegas, Kandy, QUALITY CONTROL ENGINEERING TECHNICIAN.STOCK PREPARATION OPERATOR [address] [place] [address] [place] [address] Referral ID Status Reason Start Date Expiration Date V isits Requested Visits Authorized [id number] Closed Auto-Generate d Referral 10/29/2023 11/27/2024 1 1 Reason Comments thymoma Reason Comments Follow Up Specialty Diagnoses / Procedures [facility] Referred To Contact Diagnoses Mediastinal mass Myasthenia gravis (HCC) Multiple thyroid nodules Procedures CONSULT TO ENDOCRINE SURGERY OFFICE/OUTPATIENT [facility] 60 MINUTES Jasiel Turner MD [address] [place] [phone] Referral ID Status Reason Start Date Expiration Date V isits Requested Visits Authorized [id number] Closed PCP Requested Referral 07/13/2023 07/12/2024 1 1 Reason Comments Annual Exam Reason Onset Date Comments Transition Of Care 09/17/2023 Reason Comments Follow-up Reason Comments Nasal Congestion Reason Comments Ankle Pain Reason Comments Ankle Pain 54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 Patient changed shoe gear. Patient relates increased pain with increased activity. NKI. No other treatments tried thus far. SS: 8-8.5 Specialty Diagnoses / Procedures Referred By Harriet garcia Referred To Contact Podiatry Diagnoses Acute right ankle pain Procedures 221 ([email or web address]) - Ambulatory referral to Podiatry Cristian Teixeira, JUAN CARLOS [address] [place] [address] Phone: tel: fax: Ender Treviño, DPM [address] [place] [address] Phone: tel: fax: Referral ID Status Reason Start Date Expiration Date Visits Re quested Visits Authorized [id number] Closed 02/11/2025 05/15/2025 1 1 Care Teams (unrecognized sec tion and content) Rolling Machine Operator Automatic Relationship Specialty Start Date End Date Claire De Los Santos DO [address] [phone] PCP - General Neurology 07/11/23 Rolling Machine Operator Automatic Relationship Specialty Start Date End Date de Yaneth, Ana María Pepper [address] [place] [address] PCP - General Family Medicine 08/28/23 Rolling Machine Operator Automatic Relationship Specialty Start Date End Date de Yaneth, Ana María Pepper [address] [place] [address] PCP - General Family Medicine 08/28/23 de Ana María Sims [address] [place] [address] Referring Family Medicine 08/31/23 Rolling Machine Operator Automatic Relationship Specialty Start Date End Date de Yaneth, Ana María Pepper [address] [place] [address] PCP - General Family Medicine 08/28/23 de Ana María Sims [address] [place] [address] Referring Family Medicine 08/31/23 Rolling Machine Operator Automatic Relationship Specialty Start Date End Date de Ana María Sims [address] [place] [address] PCP - General Family Medicine 08/28/23 de Ana María Sims [address] [place] [address] Referring Family Medicine 08/31/23 Rolling Machine Operator Automatic Relationship Specialty Start Date End Date de Ana María Sims [address] [place] [address] PCP - General Family Medicine 08/28/23 de Ana María Sims [address] [place] [address] Referring Family Medicine 08/31/23 Rolling Machine Operator Automatic Relationship Specialty Start Date End Date ma Ana María Sims [address] [place] [address] PCP - General Family Medicine 08/28/23 ma Ana María Sims [address] [place] [address] Referring Family Medicine 08/31/23 Rolling Machine Operator Automatic Relationship Specialty Start Date End Date de Yaneth, Ana María Pepper [address] [place] [address] PCP - General Family Medicine 08/28/23 ma Ana María Sims [address] [place] [address] Referring Family Medicine 08/31/23 Rolling Machine Operator Automatic Relationship Specialty Start Date End Date ma Yaneth, Ana María Pepper [address] [place] [address] PCP - General Family Medicine 08/28/23 ma Ana María Sims [address] [place] [address] Referring Family Medicine 08/31/23 Rolling Machine Operator Automatic Relationship Specialty Start Date End Date Ana María Sims [address] [place] [address] PCP - General Family Medicine 08/28/23 ma Ana María Sims [address] [place] [address] Referring Family Medicine 08/31/23 Rolling Machine Operator Automatic Relationship Specialty Start Date End Date de [facility], Ana María Pepper [address] [place] [address] PCP - General Family Medicine 08/28/23 de Ana María Sims [address] [place] [address] Referring Family Medicine 08/31/23 Rolling Machine Operator Automatic Relationship Specialty Start Date End Date de [facility], Ana María Pepper [address] [place] [address] PCP - General Family Medicine 08/28/23 ma Ana María Sims [address] [place] [address] Referring Family Medicine 08/31/23 Rolling Machine Operator Automatic Relationship Specialty Start Date End Date de Yaneth, Ana María Pepper [address] [place] [address] PCP - General Family Medicine 08/28/23 de Ana María Sims [address] [place] [address] Referring Family Medicine 08/31/23 Rolling Machine Operator Automatic Relationship Specialty Start Date End Date de Yaneth, Ana María Pepper [address] [place] [address] PCP - General Family Medicine 08/28/23 de Ana María Sims [address] [place] [address] Referring Family Medicine 08/31/23 Rolling Machine Operator Automatic Relationship Specialty Start Date End Date de Yaneth, Ana María Pepper [address] [place] [address] PCP - General Family Medicine 08/28/23 de Ana María Sims [address] [place] [address] Referring Family Medicine 08/31/23 Rolling Machine Operator Automatic Relationship Specialty Start Date End Date de Yaneth, Ana María Pepper [address] [place] [address] PCP - General Family Medicine 08/28/23 de Ana María Sims [address] [place] [address] Referring Family Medicine 08/31/23 Rolling Machine Operator Automatic Relationship Specialty Start Date End Date de Ana María Sims [address] [place] [address] PCP - General Family Medicine 08/28/23 de Ana María Sims [address] [place] [address] Referring Family Medicine 08/31/23 Rolling Machine Operator Automatic Relationship Specialty Start Date End Date de Ana María Sims [address] [place] [address] PCP - General Family Medicine 08/28/23 de Ana María Sims [address] [place] [address] Referring Family Medicine 08/31/23 Rolling Machine Operator Automatic Relationship Specialty Start Date End Date de Yaneth, Ana María Pepper [address] [place] [address] PCP - General Family Medicine 08/28/23 ma Ana María Sims [address] [place] [address] Referring Family Medicine 08/31/23 Rolling Machine Operator Automatic Relationship Specialty Start Date End Date de Ana María Sims [address] [place] [address] PCP - General Family Medicine 08/28/23 de Ana María Sims [address] [place] [address] Referring Family Medicine 08/31/23 Rolling Machine Operator Automatic Relationship Specialty Start Date End Date de Ana María Sims [address] [place] [address] PCP - General Family Medicine 08/28/23 ma Ana María Sims [address] [place] [address] Referring Family Medicine 08/31/23 Rolling Machine Operator Automatic Relationship Specialty Start Date End Date de Ana María Sims [address] [place] [address] PCP - General Family Medicine 08/28/23 ma Ana María Sims [address] [place] [address] Referring Family Medicine 08/31/23 Rolling Machine Operator Automatic Relationship Specialty Start Date End Date de Ana María Sims [address] [place] [address] PCP - General Family Medicine 08/28/23 ma Ana María Sims [address] [place] [address] Referring Family Medicine 08/31/23 Rolling Machine Operator Automatic Relationship Specialty Start Date End Date maris Ana María Sims [address] [place] [address] PCP - General Family Medicine 08/28/23 Ana María [place] [address] [place] [address] Referring Family Medicine 08/31/23 Rolling Machine Operator Automatic Relationship Specialty Start Date End Date amris Ana María Sims [address] [place] [address] PCP - General Family Medicine 08/28/23 Ana María [place] [address] [place] [address] Referring Family Medicine 08/31/23 Rolling Machine Operator Automatic Relationship Specialty Start Date End Date Ana María Adorno MD [address] [place] [address] PCP - General Family Medicine 04/11/23 Tiffanie Moreno PA [facility] [place] [address] PCP - Medical [employer] 07/09/21 07/08/99 Rolling Machine Operator Automatic Relationship Specialty Start Date End Date Ana María Adorno MD [address] [place] [address] PCP - General Family Medicine 04/11/23 Tiffanie Moreno PA [address] [place] [address] [place] [address] PCP - Medical [employer] 07/09/21 07/08/99 Rolling Machine Operator Automatic Relationship Specialty Start Date End Date Ana María Adorno MD [address] [place] [address] PCP - General Family Medicine 04/11/23 Tiffanie Moreno PA [address] [place] [address] [place] [address] PCP - Medical [employer] 07/09/21 07/08/99 Rolling Machine Operator Automatic Relationship Specialty Start Date End Date Ana María Mckeon [address] [place] [address] PCP - General Family Medicine 08/28/23 Ana María [place] [address] [place] [address] Referring Family Medicine 08/31/23 Rolling Machine Operator Automatic Relationship Specialty Start Date End Date Ana María [place] [address] [place] [address] PCP - General Family Medicine 08/28/23 Ana María [place] [address] [place] [address] Referring Family Medicine 08/31/23 Rolling Machine Operator Automatic Relationship Specialty Start Date End Date Claire De Los Santos DO [address] [facility] [address] [place] [phone] PCP - General Neurology 07/11/23 Rolling Machine Operator Automatic Relationship Specialty Start Date End Date Ana María Adorno MD [address] [place] [address] PCP - General Family Medicine 04/11/23 Tiffanie Moreno PA [address] [place] [address] [place] [address] PCP - Medical [employer] 07/09/21 07/08/99 Rolling Machine Operator Automatic Relationship Specialty Start Date End Date Ana María Adorno MD [address] [place] [address] PCP - General Family Medicine 04/11/23 Tiffanie Moreno PA [address] [place] [address] [place] [address] PCP - Medical [employer] 07/09/21 07/08/99 Rolling Machine Operator Automatic Relationship Specialty Start Date End Date Cristian Teixeira APRN-[facility] [address] [place] [address] PCP - General Family Medicine 06/13/18 Rolling Machine Operator Automatic Relationship Specialty Start Date End Date Cristian Teixeira, 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 [address] [place] [address] PCP - General Family Medicine 06/13/18 Rolling Machine Operator Automatic Relationship Specialty Start Date End Date Cristian Teixeira, VIVIAN-STOCK PREPARATION OPERATOR [address] [place] [address] PCP - General Family Medicine 06/13/18 Rolling Machine Operator Automatic Relationship Specialty Start Date End Date Cristian Teixeira, VIVIAN-STOCK PREPARATION OPERATOR [address] [place] [address] PCP - General Family Medicine 06/13/18 Rolling Machine Operator Automatic Relationship Specialty Start Date End Date Cristian Teixeira, 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 [address] [place] [address] PCP - General Family Medicine 06/13/18 Rolling Machine Operator Automatic Relationship Specialty Start Date End Date Cristian Teixeira NP [address] [place] [address] Primary Care Provider [facility] 02/12/25 Rolling Machine Operator Automatic Relationship Specialty Start Date End Date Cristian Teixeira NP [address] [place] [address] Primary Care Provider [facility] 02/12/25 FOR RECORDS PERTAINING TO PATIENTS WHO ARE [...] BE BASED ON THE PRIMARY CLINICAL RECORDS. [facility] [employer] provides no warranty or guarantee of the accuracy or completeness of information in this document.
[2025-04-23 16:11] LABS: Age Gdln ACOG Testing Note (.); IGP, Aptima HPV, rfx 16/18,45 Note (.)
== END 2025-04-20 12:41 | disposition home or self-care (01) ==
LOC: LAB 12:40
PROVIDERS: Visit Provider Physician Assistant
DX: Z01.419 Encounter for gynecological examination (general) (routine) without abnormal findings (principal)
CPT/HCPCS: 87624; 88175

== ENCOUNTER 2025-06-08 07:05 | Outpatient (OUT) | payer OTHER, SELFPAY ==
--- OUTSIDE RECORDS SUMMARY | 2025-06-01 13:30 | XMS_ITS | Encounter Summary ---
Author Organization [facility] Address [facility] [place] [address] Care Team Providers Care Qualitative Field Coordinator Name Role Phone Cipriano Morfin Primary Care Provider [phone] Cipriano Morfin Unavailable [phone] Source Comments In the event this information is protected by the Federal Confidentiality of Alcohol and Drug AbusePatient Records regulations: The Federal rules restrict any use of the information to criminally investigate or prosecute any alcohol or drug abuse patient.[facility] Reason for Visit * ReasonCommentsRadiology CT * MRI/CT (Routine) - ClosedSpecialtyDiagnoses / ProceduresReferred By Contact Referred To ContactCT IMAGING Diagnoses Malignant neoplasm of thymus (HCC) Procedures CT CHEST W IVCON DIAGNOSTIC COMPUTED TOMOGRAPHY THORAX W/CONTRAST Gudelia Coe M, LINUX NETWORK ADMINISTRATOR.[facility] [address] [place] [address] Phone: tel: fax: [facility] IMAGING [place] [address] Referral IDStatusReasonStart DateExpiration DateVisits RequestedVisits [id number] Auto-Generated Referral Encounter Details DateTypeDepartmentCare Team (Latest Contact Info)Flwnajjtudg91/24/2025 1:30 PM EST - 06/01/2025 11:59 PM ESTHospital Encounter Radiology [address] [place] [address] Malignant neoplasm of thymus (HCC) [C37] Discharge Disposition: Home Social History Tobacco UseTypesPacks/DayYears UsedDateSmoking Tobacco: NeverPassive Smoke Exposure: NeverSmokeless Tobacco: NeverAlcohol UseStandard Drinks/WeekComments Yes0 (1 standard drink = 0.6 oz pure alcohol)RarelyPHQ-2AnswerDate RecordedPHQ-2 ockts374/22/2025Area Deprivation IndexAnswerDate RecordedNational Score (1- 100), lower number is lower bbgo811507/16/2023State Score (1-10), lower number is lower qxov2534Data from: https://www.neighborhoodatlas.medicine.[facility].edu/. 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 on fileNot on filedocumented as of this encounter Functional Status * Are you deaf or do you have serious difficulty hearing?AnswerDate of JeaqannyxlWgbrtwJf69/09/2024 10:28 AM Lisa Heaton RN * Are you blind or do you have serious difficulty seeing, even when wearing glasses?AnswerDate of MjuxpwhdflKnymgbXv20/09/2024 10:28 AM Lisa Heaton RN * Do you have serious difficulty walking or climbing stairs?AnswerDate of ZfuqrqsnsiBpkppjAm45/09/2024 10:28 AM Lisa Heaton RN * Do you have difficulty dressing or bathing?AnswerDate of AssessmentAuthorNo 09/15/2023 10:28 AM Lisa Heaton RN * Because of a physical, mental, or emotional condition, do you have difficulty doing errands alone such as visiting a doctor's office or shopping?AnswerDate of UnindifixvCbnjwfJt89/09/2024 10:28 AM Lisa Heaton RN documented as of this encounter Mental Status * Because of a physical, mental, or emotional condition, do you have serious difficulty concentrating, remembering, or making decisions?AnswerEntry Date WulhxkWg43/09/2024 10:28 AM Lisa Heaton RN documented in this encounter Medications at Time of Discharge MedicationSigDispense QuantityRefillsLast FilledStart DateEnd Date ibuprofen (MOTRIN) 600 mg tablet Indications:Myasthenia gravis (HCC),Postoperative pain,ThymomaTake 1 tablet by mouth every 6 hours as needed for pain. 60 tablet 11/29/2023 CALCIUM ORAL Take by mouth. pyRIDostigmine bromide 30 mg tab Take 30 mg by mouth once daily. cholecalciferol, vitamin D3, (VITAMIN D3 ORAL) Take 2,000 Units by mouth once daily. iv contrast (will [...] according to line specific nursing protocol in theCT contrast administration guidelines link. 1 each 511/documented as of this encounter Progress Notes * Aiden Gray RN - 06/01/2025 2:00 PM EST Radiology Service Progress Note DATE OF SERVICE: June 01, 2025 TIME: 1:37 PM PATIENT WEIGHT: 224 LBS PATIENT IDENTITY VERIFICATION COMPLETED USING TWO [...] Assigned female at . status: : No status:NO. ALLERGIES: Reviewed and unchanged CONTRAST ALLERGY: No [...] creatinine assay has traceable calibration to isotope dilution- mass spectrometry. Refer to KDIGO guidelines for clinical interpretation. In patients with unstable renal function, e.g. those with acute kidney injury, the eGFRmay not accurately reflect actual GFR. P.O.C.T. RESULTS: N/A June 01, 2025 TREATMENT: N/A IV SITE: Ambulatory: A peripheral IV was started in the Right antecubital site with a Angio cath: 22 gauge. and A Saline lock was inserted per protocol IV SITE APPEARANCE: Clean,Dry and Intact SIGNATURE: Aiden Gray RN PATIENT NAME: Serena Arana DATE: June 01, 2025 TIME: 1:37 PM * Ronald De Oliveira RT(R) - 06/01/2025 2:00 PM EST Radiology Service Progress Note PATIENT NAME: Serena Arana DATE OF SERVICE: June 01, 2025 TIME: 1:56 PM PATIENT IDENTITY VERIFICATION COMPLETED USING TWO (2) IDENTIFIERS: Name and Date of confirmedby patient verbally and Name and Date of confirmed by identification band. FALL SCREENING: Has the patient had 2 falls in the last year or 1 fall with injury or currently using an Ambulatory Assistive Device (Walker, Cane, Wheelchair, Crutches, etc.)? No PATIENT GENDER DATA: Assigned female at . status: : No status:NO. PATIENT RELEVANT IMPLANT DATA REVIEWED: Yes PATIENT PRESENTS WITH AN IMPLANTABLE OR ATTACHED PET CREMATORY WORKER: No RADIOLOGY DEPARTMENT: CT; Exam(s) Completed: Chest. Anesthesia: No PERIPHERAL IV DATA: Site assessment: Clean,Dry and Intact, Site disposition Discontinued SIGNED BY: RT Junior(R) June 01, 2025 1:56 PM documented in this encounter Plan of Treatment DateTypeDepartmentCare Team (Latest Contact Info)Eeaqnsqmmkx34/08/2026 10:00 AM EDTOffice Visit Radiation Oncology [address] [place] [address] Zeferino Patel MD [address] [place] [address] 2 year follow updocumented as of this encounter Procedures Procedure NamePriorityDate/TimeAssociated DiagnosisCommentsCT CHEST W IVCON Ellteqy3506/01/2025 2:01 PM EST Malignant neoplasm of thymus (HCC) documented in this encounter Results * CT CHEST W IVCON (06/01/2025 2:01 PM EST)Anatomical RegionLateralityModality ChestComputed TomographySpecimen (Source)Anatomical Location / Laterality Collection Method / VolumeCollection TimeReceived Time06/01/2025 2:01 PM EST Impressions 06/03/2025 10:51 AM EST IMPRESSION: 1. ??No interval change with no findings of recurrent mass in the anterior mediastinum. 2. ??No new or growing lung nodules. Online Health And Fitness Coach: JAIME ?? Transcribe Date/Time: Jun 03 2025 10:46A Dictated by : QUINTEN LEWIS MD This examination was interpreted and the report reviewed and electronically signed by: QUINTEN LEWIS MD on Jun 03 2025 10:49AM ??EST Narrative 06/03/2025 10:51 AM EST * * *Final Report* * * DATE OF EXAM: Jun 01 2025 ??2:01PM ?? [facility] [place] [facility] ??- ??CT CHEST W IVCON ??/ PROCEDURE REASON: Malignant neoplasm of thymus (HCC) ? * * * * Physician Interpretation * * * * EXAMINATION: ??CHEST CT WITH CONTRAST CLINICAL HISTORY: Malignant neoplasm of thymus Technique: ??Spiral CT acquisition of the chest from the thoracic inlet to the upper abdomen following IV contrast. MQ: ??CTCW_6 Contrast: ??50 mL Omnipaque [address] Radiation dose: Integrated Dose-length product (DLP) for this visit = ?? 392 mGy*cm CT Dose Reduction Employed: Automated exposure control (AEC) Comparison: Several prior studies dating back to 10/16/2023 RESULT: Limitations: ??None. Lines, tubes, and devices: ??None. Lung parenchyma and airways: Postradiation scarring in left upper paramediastinal lung. ??There is a stable 2 mm faint nodule in right upper lobe on image 44 series 4. ??It is of doubtful clinical significance. ??No new lung nodules or consolidations have developed. ??The central airways are patent. Pleural space: ??No pleural effusion. ??No pleural thickening. Lower neck, lymph nodes, and mediastinum: ??The imaged thyroid gland is normal. ??No lymphadenopathy in the supraclavicular, axillary, mediastinal, or hilar regions. ??No findings of recurrent mass in the anterior mediastinum. Heart, pericardium, and thoracic vessels: ??The thoracic aorta and main pulmonary artery are normal in caliber. The cardiac chambers are normal in size. No coronary artery atherosclerotic calcifications are noted, although the study is not optimized for coronary assessment. No pericardial effusion or thickening. Bones and soft tissues: ??No destructive bone lesion. Chest wall is unremarkable. Upper abdomen: ??Diffuse hepatic steatosis. ??Unchanged peripherally enhancing lesion in the visualized portion of right lobe of liver previously determined to be hemangiomas on MRI. Localizer images: No additional findings. Procedure Note Provider, [facility] - 06/03/2025 * * *Final Report* * * DATE OF EXAM: Jun 01 2025 2:01PM [facility] 0539 - CT CHEST W IVCON / PROCEDURE REASON: Malignant neoplasm of thymus (HCC) * * * * Physician Interpretation * * * * EXAMINATION: CHEST CT WITH CONTRAST CLINICAL HISTORY: Malignant neoplasm of thymus Technique: Spiral CT acquisition of the chest from the thoracic inlet to the upper abdomen following IV contrast. MQ: CTCW_6 Contrast: 50 mL Omnipaque [address] Radiation dose: Integrated Dose-length product (DLP) for this visit = 392 mGy*cm CT Dose Reduction Employed: Automated exposure control (AEC) Comparison: Several prior studies dating back to 10/16/2023 RESULT: Limitations: None. Lines, tubes, and devices: None. Lung parenchyma and airways: Postradiation scarring in left upper paramediastinal lung. There is a stable 2 mm faint nodule in right upper lobe on image 44 series 4. It is of doubtful clinical significance. No new lung nodules or consolidations have developed. The central airways are patent. Pleural space: No pleural effusion. No pleural thickening. Lower neck, lymph nodes, and mediastinum: The imaged thyroid gland is normal. No lymphadenopathy in the supraclavicular, axillary, mediastinal, or hilar regions. No findings of recurrent mass in the anterior mediastinum. Heart, pericardium, and thoracic vessels: The thoracic aorta and main pulmonary artery are normal in caliber. The cardiac chambers are normal in size. No coronary artery atherosclerotic calcifications are noted, although the study is not optimized for coronary assessment. No pericardial effusion or thickening. Bones and soft tissues: No destructive bone lesion. Chest wall is unremarkable. Upper abdomen: Diffuse hepatic steatosis. Unchanged peripherally enhancing lesion in the visualized portion of right lobe of liver previously determined to be hemangiomas on MRI. Localizer images: No additional findings. IMPRESSION IMPRESSION: 1. No interval change with no findings of recurrent mass in the anterior mediastinum. 2. No new or growing lung nodules. Online Health And Fitness Coach: PSCB Transcribe Date/Time: Jun 03 2025 10:46A Dictated by : QUINTEN LEWIS MD This examination was interpreted and the report reviewed and electronically signed by: QUINTEN LEWIS MD on Jun 03 2025 10:49AM EST Authorizing ProviderResult TypeResult StatusSetye Coe APRN.[facility] Final Result documented in this encounter Visit Diagnoses Diagnosis Malignant neoplasm of thymus (HCC) Malignant neoplasm of thymus documented in this encounter Care Teams Team MemberRelationshipSpecialtyStart DateEnd Date de Cipriano Sims [address] [place] [address] PCP - [facility] Medicine08/28/23 de Cipriano Sims [address] [place] [address] [facility]08/31/23documented as of this encounter
--- OUTSIDE RECORDS SUMMARY | 2025-06-01 15:00 | XMS_ITS | Encounter Summary ---
Author Organization [facility] Address [facility] [place] [id number] Care Team Providers Care P D Driver Name Role Phone Cipriano Morfin Primary Care Provider [phone] Cipriano Morfin Unavailable [phone] Source Comments In the event this information is protected by the Federal Confidentiality of Alcohol and Drug AbusePatient Records regulations: The Federal rules restrict any use of the information to criminally investigate or prosecute any alcohol or drug abuse patient.[facility] Reason for Referral * MRI/CT (Routine) - New RequestSpecialtyDiagnoses / ProceduresReferred By ContactReferred To ContactCT IMAGING Diagnoses Malignant neoplasm of thymus (HCC) Procedures CT CHEST W IVCON DIAGNOSTIC COMPUTED TOMOGRAPHY THORAX W/CONTRAST Kandy Vallecillo, VIVIAN.[facility] [address] [place] [address] Phone: tel: fax: CT IMAGING [place] [address] Referral IDStatusReasonStart DateExpiration DateVisits RequestedVisits [id number] Request Auto-Generated Referral 51 Reason for Visit * ReasonCommentsEstablished Patient Encounter Details DateTypeDepartmentCare Team (Latest Contact Info)Bwcjijgigvo08/24/2025 3:00 PM ESTOffice Visit Thoracic Clinic [address] [place], [place] [id number] Kandy Vallecillo APRN.[facility] [address] [place] [address] Malignant neoplasm of thymus (HCC) (Primary Dx) Social History Tobacco UseTypesPacks/DayYears UsedDateSmoking Tobacco: NeverPassive Smoke Exposure: NeverSmokeless Tobacco: Never Tobacco Cessation:Counseling Given: Not Answered Alcohol UseStandard Drinks/WeekCommentsYes0 (1 standard drink = 0.6 oz pure alcohol)RarelyPHQ-2AnswerDate RecordedPHQ-2 okrjy327/22/2025Area Deprivation IndexAnswerDate RecordedNational Score (1-100), lower number is lower risk65 07/16/2023State Score (1-10), lower number is lower wxrn5944Data from: https://www.neighborhoodatlas.medicine.[facility].edu/. 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 on fileNot on filedocumented as of this encounter Last Filed Vital Signs Vital SignReadingTime TakenCommentsBlood Wrivuhle253/9006/01/2025 2:39 PM ESTPt Is QwwmsflFihfs5482/24/2025 2:39 PM HKIQyacichzdsd48.6 ??C (97.8 ??F)06/01/2025 2:39 PM ESTRespiratory Qocm988208/01/2024 2:39 PM ESTOxygen Hrghlgpcwq00% 06/01/2025 2:39 PM ESTInhaled Oxygen Concentration--Rkolpd714.2 kg (225 lb 5 oz) 06/01/2025 2:39 PM LXPBxnxky153 cm (5' 2.99 )06/01/2025 2:39 PM ESTBody Mass Index39.9206/01/2025 2:39 PM ESTdocumented in this encounter Functional Status * Are you deaf or do you have serious difficulty hearing?AnswerDate of EtqturgswrCvbcxaEk33/09/2024 10:28 AM Lisa Heaton RN * Are you blind or do you have serious difficulty seeing, even when wearing glasses?AnswerDate of AyonukiseeYcarbnMk18/09/2024 10:28 AM Lisa Heaton RN * Do you have serious difficulty walking or climbing stairs?AnswerDate of RdptmlphceKtumfwPc85/09/2024 10:28 AM Lisa Heaton RN * Do you have difficulty dressing or bathing?AnswerDate of AssessmentAuthorNo 09/15/2023 10:28 AM Lisa Heaton RN * Because of a physical, mental, or emotional condition, do you have difficulty doing errands alone such as visiting a doctor's office or shopping?AnswerDate of PztjcnxdsuXrnpsoCg71/09/2024 10:28 AM Lisa Heaton RN documented as of this encounter Mental Status * Because of a physical, mental, or emotional condition, do you have serious difficulty concentrating, remembering, or making decisions?AnswerEntry Date RlsxvePg93/09/2024 10:28 AM Lisa Heaton RN documented in this encounter Progress Notes * Kandy Vallecillo APRN.[facility] - 06/01/2025 2:49 PM EST Part of this note was copied from previous note, all content has been individually reviewed, updated as necessary, and thoroughly reviewed. [facility] - OUTPATIENT THORACIC SURGERY CLINIC NOTE [id number] THORACIC SURGEON: Jasiel Turner M.D. DATE OF SERVICE: 06/01/2025 PRINCIPAL DX: -T1aN0 stage IIa Thymoma, (+) [...] cells are diffusely positive for CK AE1AE3, CKCAM5.2 and p63. The admixed lymphocytes within the [...] been determined by the performing laboratory within [facility]???s [facility] Pathology and Laboratory Medicine [place] ([facility], [facility], [facility], [facility], [facility], [facility], or [facility]) in a manner consistent with CLIA [...] (Chapter 1, 8th Ed.) it is the managingphysician???s responsibility to establish the final pathologic stage based upon all pertinent information, including but potentially not limited to this pathology report. 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 Preoperative Hospital Course: Presented with blurry vision in the evening as well as intermittent double vision, symptoms began 05/2023. Evaluated by her rocket test fire worker and diagnosed her with vertical heterophoria and [...] 27 fractions). PHYSICAL EXAM: VITAL SIGNS: BP 148/90 Pulse 75 Temp 36.6 ??C (97.8 ??F) (Oral) Resp 16 Ht 160 cm (5' 2.99 ) Wt 102.2 kg (225 lb 5 oz) SpO2 96% BMI 39.92 kg/m?? Room air Incision location: Bilateral [place] sites Incision Assessment: Well approximated and no drainage, swelling, erythema or warmth Drain/Tubes: NA IMAGING/TESTS: CT Chest 06/01/2025 INTERVAL HISTORY: Serena Arana returns to clinic today following CT scan of the chest. She has been doing well, and denies cough, SOB, hemoptysis, unintentional weight loss. No MG symptoms. No double vision. CT scan shows no evidence of new or recurrent disease. She has follow up with neurology today. She will return in [address] chest. . IMPRESSION: 54 year old female s/p Robotic bilateral thymectomy 09/13/[address] Jasiel Turner for T1aN0 stage IIa Thymoma, (+) margin, Myasthenia Gravis. TAYLOR PLAN: - return in 11/12/[address] Chest - neurology management with Dr Lseter f/u later today - radiation oncology management with sara Jacques/u 11/13/25 Kandy Vallecillo APRN.[facility] documented in this encounter Plan of Treatment DateTypeDepartmentCare Team (Latest Contact Info)Ajefzblyymv04/08/2026 10:00 AM EDTOffice Visit Radiation Oncology [address] [place] [address] [place] [address] Zeferino Patel MD [address] [place] [address] 2 year follow upNameTypePriorityAssociated DiagnosesOrder ScheduleCT CHEST W IVCONRadiologyRoutine Malignant neoplasm of thymus (HCC) 1 Occurrences starting 06/01/2025 until 07/01/2026documented as of this encounter Visit Diagnoses Diagnosis 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 thymus documented in this encounter Care Teams Team MemberRelationshipSpecialtyStart DateEnd Date Cipriano Morfin [address] [place] [address] PCP - GeneralFamily Medicine08/28/23 Cipriano Morfin [address] [place], [place] [id number] ReferringFanyly Medicine08/31/23documented as of this encounter
--- OUTSIDE RECORDS SUMMARY | 2025-06-01 16:00 | XMS_ITS | Encounter Summary ---
Author Organization [facility] Address [address] [place] [address] Care Team Providers Care Press Catcher Name Role Phone Cipriano Morfin Primary Care Provider [phone] Cipriano Morfin Unavailable [phone] Source Comments In the event this information is protected by the Federal Confidentiality of Alcohol and Drug AbusePatient Records regulations: The Federal rules restrict any use of the information to criminally investigate or prosecute any alcohol or drug abuse patient.[facility] Reason for Visit * ReasonCommentsEstablished PatientFollow Up Encounter Details DateTypeDepartmentCare Team (Latest Contact Info)Gybihkkdfit64/24/2025 4:00 PM ESTOffice Visit Neurology [address] [place] [address] Quinten Lester MD [address] [place] [address] MG with thymoma (myasthena gravis) (HCC) (Primary Dx) Social History Tobacco UseTypesPacks/DayYears UsedDateSmoking Tobacco: NeverPassive Smoke Exposure: NeverSmokeless Tobacco: NeverAlcohol UseStandard Drinks/WeekComments Yes0 (1 standard drink = 0.6 oz pure alcohol)RarelyPHQ-2AnswerDate RecordedPHQ-2 wrqsa060/22/2025Area Deprivation IndexAnswerDate RecordedNational Score (1-100), lower number is lower yvdb772707/16/2023State Score (1-10), lower number is lower juyn9974Data from: https://www.neighborhoodatlas.[facility].edu/. 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 on fileNot on filedocumented as of this encounter Last Filed Vital Signs Vital SignReadingTime TakenCommentsBlood Ohxahmzs422/8106/01/2025 3:44 PM EST Jrngm423706/01/2025 3:44 PM ESTTemperature--Respiratory Rate--Oxygen Bbtoactuud62% 06/01/2025 3:44 PM ESTInhaled Oxygen Concentration--Ohubzq364.1 kg (225 lb) 06/01/2025 3:44 PM URMKdoemc130 cm (5' 3 )06/01/2025 3:44 PM ESTBody Mass Index 39.8606/01/2025 3:44 PM ESTdocumented in this encounter Functional Status * Are you deaf or do you have serious difficulty hearing?AnswerDate of XlupvjyqxoDdfmfaEb32/09/2024 10:28 AM Lisa Heaton RN * Are you blind or do you have serious difficulty seeing, even when wearing glasses?AnswerDate of JxbyegqdysDuilqvEk13/09/2024 10:28 AM Lisa Heaton RN * Do you have serious difficulty walking or climbing stairs?AnswerDate of PygmkuvmwvBatjgiWs24/09/2024 10:28 AM Lisa Heaton RN * Do you have difficulty dressing or bathing?AnswerDate of AssessmentAuthorNo 09/15/2023 10:28 AM Lisa Heaton RN * Because of a physical, mental, or emotional condition, do you have difficulty doing errands alone such as visiting a doctor's office or shopping?AnswerDate of SjzbiprahcBmwoyjSb76/09/2024 10:28 AM Lisa Heaton RN documented as of this encounter Mental Status * Because of a physical, mental, or emotional condition, do you have serious difficulty concentrating, remembering, or making decisions?AnswerEntry Date HkfimwXs06/09/2024 10:28 AM Lisa Heaton RN documented in this encounter Patient Instructions * Patient Instructions* Bebo Best MD - 06/01/2025 4:20 PM EST You can follow-up with us whenever you are here next to see thoracic surgery. Continue to keep up with repeat CT chest scans per thoracic surgery. It is reassuring that you have not had any symptoms. If symptoms do re-occur, reach out to us via MyChart or phone. However, we do not suspect this will happen. documented in this encounter Progress Notes * Quinten Lseter MD - 06/01/2025 4:00 PM EST HPI: Ms. 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 At that visit she had completed treatment for her thymoma and was asymptomatic on low dose prednisone and the plan was to continuing to wean prednisone until completely off. Since their last visit: No recurrence of symptoms. She saw thoracic surgery today and there are no concerns. They are planning a repeat CT chest in 6 months and then will go to annual scans. She has plans to follow -up withradiation oncology in November. She has seen the eye doctor without any concerns. Doing very well. Completed steroids end of Aug 2024. Also stopped pyridostigmine. Symptom free. ROS: Pertinent positive and negative systems reviewed in HPI. Answers submitted by the patient for this visit: Activities of Daily Living (MG-ADL) (Submitted on 05/30/2025) Talkin=Normal Chewin=Normal Swallowin=Normal Breathin=Normal Impairment of ability to brush teeth or comb hair: 0=None Impairment of ability to rise from a chair: 0=None Double vision: 0=None Eyelid droop: 0=None I saw Serena Arana at the [facility] on 04/29/24 in follow up for thymomatous seropositive MG (ocular). Medications: Current Outpatient Medications Medication Sig iv contrast (will be provided with radiology test) CT Chest W -Inject, intravenously, once for 1 dose.No IV access, insert saline lock prior to the beginning of sedation, infusion, injection of imaging exam. Discontinue saline lock post exam. If Pt. has a central line or IVAD, may access for administration according to line specific nursing protocol. Once exam is complete flush line and de-accessaccording to line specific nursing protocol in theCT contrast administration guidelines link. ibuprofen (MOTRIN) 600 mg tablet Take 1 tablet by mouth every 6 hours as needed for pain. cholecalciferol, vitamin D3, (VITAMIN D3 ORAL) Take 2,000 Units by mouth once daily. CALCIUM ORAL Take by mouth. (Patient not taking: Reported on 06/01/2025) pyRIDostigmine bromide 30 mg tab Take 30 mg by mouth once daily. (Patient not taking: Reported on 06/01/2025) No current facility-administered medications for this visit. Allergies: No Known Allergies Exam: 06/01/25 1544 BP: 132/81 BP Site: Left Arm BP Position: Sitting BP Cuff Size: Regular Adult Pulse: 64 SpO2: 97% Weight: 102.1 kg (225 lb) Height: 160 cm (5' 3 ) Gen: appears stated age, no acute distress Neuro: MS: awake, alert, oriented to detailed history. Language fluent. Cranial nerves: No EOMI. No eye closure weakness. Lower facial muscles and tongue strong. No dysarthria. Head flexion full strength. Motor: Muscle bulk and tone normal. Strength proximally and distally in all four extremities was 5/5. Reflexes 2+ symmetrically Coordination: No evidence of ataxia Gait: Casual gait normal. 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 Asymptomatic with normal examination off all therapy. We discussed that once off medications for 1 year and symptom free, we consider this clinically stable remission. Plan: Continue regular follow up with thoracic surgery for cancer monitoring No need for any MG specific therapy Contact my office if symptoms recur RV in 6 months Bebo Best MD PGY5 Fellow, ID Medicine In the service of staff, Dr. Lester I saw and evaluated the patient, reviewed and discussed the yañez elements and findings with the fellow, and agree with and edited where appropriate the above note. Quinten Lester MD I spent a total of 25 minutes on the date of the service which included preparing to see the patient, fvvq-bi-tzce patient care, completing clinical documentation, obtaining and/or reviewing separately obtained history, performing a medically appropriate examination, counseling and educating the pat ient/family/caregiver. documented in this encounter Plan of Treatment DateTypeDepartmentCare Team (Latest Contact Info)Mowgandojrc71/08/2026 10:00 AM EDTOffice Visit Radiation Oncology [address] [place] [address] Zeferino Patel MD [address] [place] [address] 2 year follow updocumented as of this encounter Visit Diagnoses Diagnosis MG with thymoma (myasthena gravis) (HCC)- Primary Myasthenia gravis without exacerbation documented in this encounter Care Teams Team MemberRelationshipSpecialtyStart DateEnd Date de Cipriano Sims [address] [place] [address] PCP - GeneralFaakly Medicine08/28/23 de Cipriano Sims [address] [place] [address] ReferringFamily Medicine08/31/23documented as of this encounter
--- OUTSIDE RECORDS SUMMARY | 2025-06-08 07:07 | XMS_ITS | Clinical Summary ---
Author Organization [facility] Address [address] [place], [place] [address] Care Team Providers Care Environmental Epidemiologist Name Role Phone Cipriano Morfin Primary Care Provider [phone] Cipriano Morfin Unavailable [phone] Allergies No known active allergies Medications MedicationSigDispense QuantityRefillsLast FilledStart DateEnd DateStatus cholecalciferol, vitamin D3, (VITAMIN D3 ORAL) Take 2,000 Units by mouth once daily.Active ibuprofen (MOTRIN) 600 mg tablet Indications:Myasthenia gravis (HCC),Postoperative pain,ThymomaTake 1 tablet by mouth every 6 hours as needed for pain. 60 tablet 11/29/2023ctive pyRIDostigmine bromide 30 mg tab Take 30 mg by mouth once daily.Active CALCIUM ORAL Take by mouth.Active iv contrast (will be provided with radiology [...] theCT contrast administration guidelines link. 1 each 511/Expired Active Problems Patient Care Coordination No te Formatting of this note migh t be different from the original. Indication for Surgery: Myasthenia Gravis, Thymoma Preop LVEF: 65% RVF: Normal Important/Relevant PMH/PSH: 53 year old female never smoker with PMHx of ocular myasthenia gravis (Ab +) and a thymoma Preoperative Hospital Course: Presented with blurry vision in the evening as well as intermittent double vision, symptoms began 05/2023. Evaluated by her flour mixer helper and diagnosed with vertical heterophoria and was given prism glasses, which improved her vision significantly initially. As part of his workup, a CT of her brain orbits completed that showed a tortuous left optic nerve but no other abnormal findings. Serum testing was significant for positive acetylcholine receptor binding antibodies and she was referred to a neurologist. Started on pyridostigmine 30mg TID and prednisone 10mgdaily in June 2023. Prednisone was increased to 20 mg daily in July 2023 given new presence of ptosis. Chest CT showed the presence of a possible thymomatous mass and she was referred Thoracicsurgery for possible surgical intervention. Now presents for [...] performed in OR. Controlled with Fentanyl IV FINISHER TAILOR APPRENTICE, Tylenol 1000 mg q6h, Toradol 15 mg q6h, and oxycodone 5-10 mg q6h. -Continue current regimen and stop IV FINISHER TAILOR APPRENTICE To Do or to Watch: Continue home mestinon Nicole-op Stress dose steroids then transition to home prednisone IVIG post-op if there is any acute exacerbation Avoid MG exacerbating medications (amioglycoside antibiotics, fluroquinolones, macrolides, Magnesium, etc.) Bilateral shasta drains Discharge Planning: Anticipated Discharge Date: 09/15/2023 Barriers to Discharge:post op, pain control Care Management Discharge Needs: ProblemNoted DateDiagnosed ObtaTppmonh44/07/2024ostoperative pain09/13/2023 Mjeuijo1409/13/2023 Overview (09/14/2023): Indication for Surgery: Myasthenia Gravis, Thymoma Preop LVEF: 65% RVF: Normal Important/Relevant PMH/PSH: 53 year old female never smoker with PMHx of ocular myasthenia gravis (Ab +) and a thymoma Preoperative Hospital Course: Presented with blurry vision in the evening as well as intermittent double vision, symptoms began 05/2023. Evaluated by her flour mixer helper and diagnosed her with vertical heterophoria and was given prism glasses, which improved her vision significantly. As part of hisworkup, a CT of her brain orbits completed that showed a tortuous left optic nerve but no other abnormal findings. Serum testing was significant for positive acetylcholine receptor binding antibodiesand she was referred to a neurologist. Started on pyridostigmine 30mg TID and prednisone 10mg dailyin June 2023. Prednisone was increased to 20 [...] performed in OR. Controlled with Fentanyl IV FINISHER TAILOR APPRENTICE, Tylenol 1000 mg q6h, Toradol 15 mg q6h, and oxycodone 5-10 mg q6h. -Continue current regimen and stop IV FINISHER TAILOR APPRENTICE To Do or to Watch: Continue home mestinon Nicole-op Stress dose steroids then transition to home prednisone IVIG post-op if there is any acute exacerbation Avoid MG exacerbating medications (amioglycoside antibiotics, fluroquinolones, macrolides, Magnesium, etc.) Bilateral shasta drains Discharge Planning: Anticipated Discharge Date: 09/15/2023 Barriers to Discharge:post op, pain control Care Management Discharge Needs: Multiple thyroid eonwjeh0808/18/2023bnormal results of thyroid function studies 08/18/2023Myasthenia gravis without exacerbation Encounters DateTypeDepartmentCare AnjcTecanscomvn01/24/2025 4:00 PM ESTOffice Visit Neurology [address] [place] [address] Quinten Lester MD MG with thymoma (myasthena gravis) (HCC) (Primary Dx)06/01/2025 3:00 PM EST Office Visit Thoracic Clinic [address] [place] [address] Kandy Vallecillo, HANSARD REPORTER.HVAC SERVICES PROFESSIONAL Malignant neoplasm of thymus (HCC) (Primary Dx)06/01/2025 1:30 PM EST - 06/01/2025 11:59 PM ESTHospital Encounter Radiology [address] [id number] Malignant neoplasm of thymus (HCC) [C37] Discharge Disposition: Home06/01/20259680Afyplh39/22/2025Travelfrom Last 3 Months Immunizations ImmunizationAdministration DatesNext Dueinfluenza (RIV4) vaccine, recombinant, quadrivalent, PF (FLUBLOK)04/14/2022influenza (ccIIV4) vaccine, age 6+ mo, quadrivalent, PF (FLUCELVAX)05/13/2019 Family History Medical HistoryRelationCommentsType 2 Diabetes MellitusFatherLymphomaMother MeningiomaMotherRelationStatusCommentsFatherMotherDeceased Social History Tobacco UseTypesPacks/DayYears UsedDateSmoking Tobacco: NeverPassive Smoke Exposure: NeverSmokeless Tobacco: Never Tobacco Cessation:Counseling Given: Not Answered Alcohol UseStandard Drinks/WeekCommentsYes0 (1 standard drink = 0.6 oz pure alcohol)RarelyPHQ-2AnswerDate RecordedPHQ-2 kusjo088/22/2025Area Deprivation IndexAnswerDate RecordedNational Score (1-100), lower number is lower risk65 07/16/2023State Score (1-10), lower number is lower gfyx7424Data from: https://www.neighborhoodatlas.[facility].edu/. 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 [address] Zeferino Patel MD [address] [place] [address] 2 year follow upHealth MaintenanceDue DateLast DoneCommentsAnxiety Screening 1986Depression Wpdpvkqvm79/29/1986HIV Nivddsxqh00/29/1986Hepatitis C Mmsfhtctl24/29/1986DTaP,Tdap,Td Vaccine (1 - Tdap)1987Hepatitis B Vaccine (1 of 3 - 19+ 3-dose series)1987Cervical Cancer Vhrtudqlw53/29/1989 Mammogram Yqaqxsviu84/29/2008CT Baudldmjexkv25/29/2013Cologuard (FIT-DNA) 07/06/20134134Crqumeusczp37/29/2013Colorectal Cancer Hcmwkjvjk19/29/2013Fecal Occult Blood07/06/20133245Wsailgmsrgjfb75/29/2013Pneumococcal Vaccine: 50+ (1 of 1 - PCV) 2018Shingrix Vaccine (1 of 2)2018Covid-19 Vaccine (5 - season)/, 05/24/2021, 10/01/2020, Additional history exists Influenza Vaccine (#1)2022, 05/13/2019Diabetes Screening 804/10/2024, 09/15/2023, 09/14/2023, Additional history existsLipid Thydhbizx08 Procedures Procedure NamePriorityDate/TimeAssociated DiagnosisCommentsCT CHEST W IVCON Zohrwqu8306/01/2025 2:01 PM EST Malignant neoplasm of thymus (HCC) BASIC METABOLIC GWXLZCvcldtg15/09/2024 4:06 AM EST from Last 3 Months or Most Recently Relevant to Health Maintenance Results * CT CHEST W IVCON (06/01/2025 2:01 PM EST)Anatomical RegionLateralityModality ChestComputed TomographySpecimen (Source)Anatomical Location / Laterality Collection Method / VolumeCollection TimeReceived Time06/01/2025 2:01 PM EST Impressions 06/03/2025 10:51 AM EST IMPRESSION: 1. ??No interval change with no findings of recurrent mass in the anterior mediastinum. 2. ??No new or growing lung nodules. Animal Attendants And Trainers: JAIME ?? Transcribe Date/Time: Jun 03 2025 10:46A Dictated by : QUINTEN LEWIS MD This examination was interpreted and the report reviewed and electronically signed by: QUINTEN LEWIS MD on Jun 03 2025 10:49AM ??EST Narrative 06/03/2025 10:51 AM EST * * *Final Report* * * DATE OF EXAM: Jun 01 2025 ??2:01PM ?? [facility] [place] ??- ??CT CHEST W IVCON [...] images: No additional findings. Procedure Note Provider, [facility] - 06/03/2025 * * *Final Report* * * DATE OF EXAM: Jun 01 2025 2:01PM [facility] [place] - CT CHEST W IVCON / [...] 2. No new or growing lung nodules. Animal Attendants And Trainers: JAIME Transcribe Date/Time: Nov 26 2025 10:46A Dictated by : QUINTEN LEWIS MD This examination was interpreted and the report reviewed and electronically signed by: QUINTEN LEWIS MD on Jun 03 2025 10:49AM EST Authorizing ProviderResult TypeResult StatusSetye Coe APRN.CNPCT-PAMA Final Result * BASIC METABOLIC PNL (09/15/2023 4:06 AM EST)ComponentValueRef RangeTest Method Analysis TimePerformed AtPathologist VynrnktpqVdxzkbj8479 - 99 mg/dL09/15/2023 6:07 AM [facility] LABComment: The [place] Diabetes Association (ADA) provides guidance for cutoff values for fasting glucose andrandom glucose. The ADA defines fasting as no [...] Standards of Medical Care in Diabetes 2016, [place] Diabetes Association. Diabetes Care. 2016.39(Suppl 1). SEF212 - 21 mg/dL09/15/2023 6:07 AM [facility] Creatinine0.760.58 - 0.96 mg/dL09/15/2023 6:07 AM [facility] AFZAmicac427423 - 144 mmol/L09/15/2023 6:07 AM [facility] LABPotassium4.63.7 - 5.1 mmol/L09/15/2023 6:07 AM [facility] TNRQdzjcrhs68248 - 105 mmol/L09/15/2023 6:07 AM [facility] RJGTO50506 - 30 mmol/L09/15/2023 6:07 AM [facility] LABAnion Xrg619 - 18 mmol/L09/15/2023 6:07 AM [facility] LABCalcium, Total8.98.5 - 10.2 mg/dL09/15/2023 6:07 AM [facility] LABEstimated Glomerular Filtration Rate93>=60 mL/min/1.73m 09/15/2023 6:07 AM ESTCLECLEVELAND CLINIC SOUTH [facility] LABComment:Estimated Glomerular Filtration Rate (eGFR) is calculated using the 2020 CKD-EPI creatinine equation. This equation utilizes serum creatinine, sex, and age as parameters. The creatinine assay has traceable calibration to isotope dilution- mass spectrometry. Refer to KDIGO guidelines for clinical interpretation. In patients with unstable renal function, e.g. those with acute kidney injury, the eGFRmay not accurately reflect actual GFR.Specimen (Source)Anatomical Location / LateralityCollection Method / VolumeCollection TimeReceived TimeBloodBLOOD SPECIMEN / UnknownVenipuncture / Vaygpxk8509/15/2023 4:06 AM EST09/15/2023 5:18 AM EST Narrative Authorizing ProviderResult TypeResult StatusNicole Ramps HANSARD REPORTER.CNPLABORATORYFinal ResultPerforming OrganizationAddressCity/State/ZIP CodePhone Number [facility] [place] [address], from Last 3 Months or Most Recently Relevant to Health Maintenance Insurance * Guarantor: Serena Arana TypeRelation to PatientDate of BirthPhone Billing AddressPersonal/GcxvtpHffm1970 [address] [place] [address] Advance Directives TypeDate RecordedPatient RepresentativeExplanationAdvance Directive(s)09/12/2023 2:51 PM Care Teams Team MemberRelationshipSpecialtyStart DateEnd Date Cipriano Morfin [address] [place] [phone] PCP - GeneralFamily Medicine08/28/23 Cipriano Morfin [address] [facility] [address] [facility]08/31/23
--- OUTSIDE RECORDS SUMMARY | 2025-06-08 07:07 | XMS_ITS | Clinical Summary ---
Author Organization [facility] tem Address [id number] [address] [place] [address] Care Team Providers Care Form Tamping Machine Operator Name Role Phone Maida Teixeira APRN-INDUSTRIAL WASTE INSPECTOR Primary Care Provide r Allergies Active AllergyReactionsCriticalityNoted DateCommentsNo Known Drug Allergies 02/14/2017 Medications No known medications Active Problems ProblemNoted DateDiagnosed TdixFobaxin97/26/2024Myasthenia wchpwv8306/13/2023 Immunizations ImmunizationAdministration DatesNext DueInfluenza, Injectable, Mdck, Preservative Free, Quad05/13/2019 Social History Tobacco UseTypesPacks/DayYears UsedDateSmoking Tobacco: NeverSmokeless Tobacco: Never Tobacco Cessation:Counseling Given: Not Answered Alcohol UseStandard Drinks/WeekCommentsNo0 (1 standard drink = 0.6 oz pure alcohol)Overall Financial Resource Strain (CARDIA)AnswerDate RecordedHow hard is it for you to pay for the very basics like food, housing, medical care, and heating?Not hard at all05/19/2024HQ-2AnswerDate RecordedTotal Dvlgv529 PRAPARE - TransportationAnswerDate RecordedIn the past 12 months, has lack of transportation kept you from medical appointments or from getting medications?No 05/19/2024In the past 12 months, has lack of transportation kept you from meetings, work, or from getting things needed for daily living?No05/19/2024 Housing InstabilityAnswerDate RecordedAre you worried or concerned that in the next two months you may not have stable housing that you own, rent or stay in as a part of a household?No4ChildcareAnswerDate RecordedChildcareUnknown 12/16/2018EmploymentAnswerDate LsncakmzAvzpdbtleyWvuxvep23/10/2019Hunger ScreeningAnswerDate RecordedWithin the past 12 months we worried whether our food would run out before we got money to buy more.Never True02/11/2025Within the past 12 months the food we bought just didn't last and we didn't have money to get more.Never True02/11/2025Purpose - LifeAnswerDate RecordedPurpose and direction in amhzXzmzbvs82/10/2021CommentsNoSex and Gender Information ValueDate RecordedSex Assigned at BirthNot on fileLegal YgkPeeged33/04/2015 11:59 AM EDTGender IdentityNot on fileSexual OrientationNot on file Last Filed Vital Signs Vital SignReadingTime TakenCommentsBlood Uhlitmrf819/7608 2:51 PM EDT Qqwwv953102/11/2025 2:51 PM IQHKuvtneanafg94.2 ??C (97.1 ??F)02/04/2020 4:19 PM EDTRespiratory Fuog905802/11/2025 2:51 PM EDTOxygen Uzieitwour81%02/11/2025 2:51 PM EDTInhaled Oxygen Concentration--Obvisu365.6 kg (224 lb)02/11/2025 2:51 PM VPROrhklu105.8 cm (5' 2.5 )09/16/2024 2:51 PM EDTBody Mass Index40.32009/16/2024 2:51 PM EDT Plan of Treatment DateTypeDepartmentCare Team (Latest Contact Info)Rbsnxzlqewm89/16/2026 9:00 AM EDTOffice Visit [facility] [address] [place] [phone] Maida Teixeira, ELECTRICIAN-INDUSTRIAL WASTE INSPECTOR [address] [place] [address] Health MaintenanceDue DateLast DoneCommentsDTaP,Tdap and Td Vaccines (1 - Tdap) 1987Zoster (Shingles) Vaccine (1 of 2)07/06/20189341Bzjudvyek64/22/2024 05/30/2023OVID-19 Vaccine (5 - season)506/, 05/24/2021, 10/01/2020, Additional history existsInfluenza Bjwqqmc65/01/2022, 05/13/2019Adult BMI Follow Up Plan/dult BMI Screening /12/2024Depression Rlvvhcfoc14/12/2024Tobacco Screening /8633Egdrsubogng80/14/203107/ap SmearDiscontinued 04/14/2024, 02/14/2017 Medical Devices Not on file Procedures Procedure NamePriorityDate/TimeAssociated DiagnosisCommentsHM MAMMOGRAPHYRoutine 05/30/2023 11:01 AM ESTHM GOKTHFKKQJQYnhbrjh81/14/2021 11:02 AM EDTPAP SMEAR Lwyrykb3102/14/2017from Last 3 Months or Most Recently Relevant to Health Maintenance Results * MAMMOGRAPHY (05/30/2023 11:01 AM EST)Anatomical RegionLateralityModality Other Narrative Authorizing ProviderResult TypeResult StatusScanning Provider ExternalHEALTH MAINTENANCEFinal Result * COLONOSCOPY (01/19/2021 11:02 AM EDT) Narrative Authorizing ProviderResult TypeResult StatusScanning Provider ExternalHEALTH MAINTENANCEFinal ResultPerforming OrganizationAddressCity/State/ZIP CodePhone Number MANUALLY TRANSCRIBED RESULTS * Pap Smear (02/14/2017)Specimen (Source)Anatomical Location / Laterality Collection Method / VolumeCollection TimeReceived Time02/14/2017 Narrative Authorizing ProviderResult TypeResult StatusScanning Provider External PATHOLOGY/CYTOLOGY ORDERABLESFinal ResultPerforming OrganizationAddress City/State/ZIP CodePhone Number MANUALLY TRANSCRIBED RESULTS from Last 3 Months or Most Recently Relevant to Health Maintenance Insurance Care Teams Team MemberRelationshipSpecialtyStart DateEnd Date Maida Teixeira, VIVIAN-INDUSTRIAL WASTE INSPECTOR [address] [place] [address] PCP - GeneralFamily Cycoumcp42/6/18
--- OUTSIDE RECORDS SUMMARY | 2025-06-08 07:07 | XMS_ITS | Encounter Summary ---
Author Organization [facility] Address [address] [place] [address] Care Team Providers Care Counselling Psychologist Name Role Phone Cipriano Morfin Primary Care Provider [phone] Cipriano Morfin Unavailable [phone] Source Comments In the event this information is protected by the Federal Confidentiality of Alcohol and Drug AbusePatient Records regulations: The Federal rules restrict any use of the information to criminally investigate or prosecute any alcohol or drug abuse patient.[facility] Encounter Details DateTypeDepartmentCare Team (Latest Contact Info)Ukhmdfbldxp40/24/2025Travel Social History Tobacco UseTypesPacks/DayYears UsedDateSmoking Tobacco: NeverPassive Smoke Exposure: NeverSmokeless Tobacco: NeverAlcohol UseStandard Drinks/WeekComments Yes0 (1 standard drink = 0.6 oz pure alcohol)RarelyPHQ-2AnswerDate RecordedPHQ-2 zbhuo361/22/2025Area Deprivation IndexAnswerDate RecordedNational Score (1-100), lower number is lower qnhg9876/08/2024State Score (1-10), lower number is lower hheb8644Data from: https://www.neighborhoodatlas.medicine.[facility].edu/. Last address used for e[address]4CommentsNoSex and Gender InformationValueDate RecordedSex Assigned at LgnbgGbbsme33/27/2023 12:27 PM ESTLegal WeiAhrqly04/27/2023 9:23 AM ESTGender AesgecvpCldcex95/27/2023 12:27 PM ESTSexual HuehtzvwixvScuynaja48/27/2023 12:27 PM ESTOccupationIndustryJob Start DateJob End DateTeacherNot on fileNot on fileNot on filedocumented as of this encounter Functional Status * Are you deaf or do you have serious difficulty hearing?AnswerDate of ArhacayicmLjbmzyCz45/09/2024 10:28 AM Lisa Heaton RN * Are you blind or do you have serious difficulty seeing, even when wearing glasses?AnswerDate of ZpdbkwsijyGralzlTt76/09/2024 10:28 AM Lisa Heaton RN * Do you have serious difficulty walking or climbing stairs?AnswerDate of IgfcewidqzDyxjkxBs24/09/2024 10:28 AM Lisa Heaton RN * Do you have difficulty dressing or bathing?AnswerDate of AssessmentAuthorNo 09/15/2023 10:28 AM Lisa Heaton RN * Because of a physical, mental, or emotional condition, do you have difficulty doing errands alone such as visiting a doctor's office or shopping?AnswerDate of AffwyxozntXeznqtRc45/09/2024 10:28 AM Lisa Heaton RN documented as of this encounter Mental Status * Because of a physical, mental, or emotional condition, do you have serious difficulty concentrating, remembering, or making decisions?AnswerEntry Date NbrehqBt80/09/2024 10:28 AM Lisa Heaton RN documented in this encounter Plan of Treatment DateTypeDepartmentCare Team (Latest Contact Info)Zsjsjfvpaxr81/08/2026 10:00 AM EDTOffice Visit Radiation Oncology [address] [place] [address] Zeferino Patel MD [address] [place] [address] [place] [address] 2 year follow updocumented as of this encounter Visit Diagnoses Not on filedocumented in this encounter Care Teams Team MemberRelationshipSpecialtyStart DateEnd Date de Cipriano Sims [address] [place] [address] PCP - [facility]08/28/23 de Cipriano Sims [address] [place] [address] ReferringFasaint joseph's hospital Medicine08/31/23documented as of this encounter
--- OUTSIDE RECORDS SUMMARY | 2025-06-08 07:07 | XMS_ITS | Encounter Summary ---
Author Organization [facility] Address [address] [place] [address] Care Team Providers Care Fishing Vessel Mate Name Role Phone Cipriano Morfin Primary Care Provider [phone] Cipriano Morfin Unavailable [phone] Source Comments In the event this information is protected by the Federal Confidentiality of Alcohol and Drug AbusePatient Records regulations: The Federal rules restrict any use of the information to criminally investigate or prosecute any alcohol or drug abuse patient.[facility] Encounter Details DateTypeDepartmentCare Team (Latest Contact Info)Rbeiciwmdrx39/22/2025Travel Social History Tobacco UseTypesPacks/DayYears UsedDateSmoking Tobacco: NeverPassive Smoke Exposure: NeverSmokeless Tobacco: NeverAlcohol UseStandard Drinks/WeekComments Yes0 (1 standard drink = 0.6 oz pure alcohol)RarelyPHQ-2AnswerDate RecordedPHQ-2 oddoy655/22/2025Area Deprivation IndexAnswerDate RecordedNational Score (1-100), lower number is lower inwq0175/08/2024State Score (1-10), lower number is lower wkeo1434Data from: https://www.neighborhoodatlas.medicine.[facility].edu/. 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 DateTeacherNot on fileNot on fileNot on filedocumented as of this encounter Functional Status * Are you deaf or do you have serious difficulty hearing?AnswerDate of TqtgvzphmpBjvueqQl83/09/2024 10:28 AM Lisa Heaton RN * Are you blind or do you have serious difficulty seeing, even when wearing glasses?AnswerDate of WzetdthpmvNaenaaFs58/09/2024 10:28 AM Lisa Heaton RN * Do you have serious difficulty walking or climbing stairs?AnswerDate of QjusupneykZstgqbCy30/09/2024 10:28 AM Lisa Heaton RN * Do you have difficulty dressing or bathing?AnswerDate of AssessmentAuthorNo 09/15/2023 10:28 AM Lisa Heaton RN * Because of a physical, mental, or emotional condition, do you have difficulty doing errands alone such as visiting a doctor's office or shopping?AnswerDate of OyhowyxbciOzgochJs56/09/2024 10:28 AM Lisa Heaton RN documented as of this encounter Mental Status * Because of a physical, mental, or emotional condition, do you have serious difficulty concentrating, remembering, or making decisions?AnswerEntry Date EcwxycCz71/09/2024 10:28 AM Lisa Heaton RN documented in this encounter Plan of Treatment DateTypeDepartmentCare Team (Latest Contact Info)Bsdxekuachs11/08/2026 10:00 AM EDTOffice Visit Radiation Oncology [address] [place] [address] Zeferino Patel MD [address] [place] [address] [place] [address] 2 year follow updocumented as of this encounter Visit Diagnoses Not on filedocumented in this encounter Care Teams Team MemberRelationshipSpecialtyStart DateEnd Date de Cipriano Sims [address] [place] [address] PCP - [facility]University [facility]icsly [facility]08/28/23 de Cipriano Sims [address] [place] [address] ReferringFamclean hospital Medicine08/31/23documented as of this encounter
--- OUTSIDE RECORDS SUMMARY | 2025-06-08 07:07 | XMS_ITS | Clinical Summary ---
Author Organization [facility] Address [address] [place] [address] Care Team Providers Care Emergency Care Attendant Name Role Phone Maida Teixeira NP Unavailable [phone] Allergies No known active allergies Medications MedicationSigDispense QuantityRefillsLast FilledStart DateEnd DateStatus ibuprofen 800 MG tablet Indications:Posterior tibial tendinitis of right lower extremityTake 1 tablet (800 mg) by mouth every 8 (eight) hours 270 tablet 5107/26/2024Expired Active Problems ProblemNoted DateDiagnosed DateVision loss01/20/2024Myasthenia ithfcu3401/20/2024 Overview (01/20/2024): It is my impression that the patient has myasthenia gravis. Patient has positive blocking and modulating antibodies. She gets double vision which seems to get worse at the end of the day. No ptosis on exam today. No neck flexor weakness. She has a thymoma which HAS BEEN surgically resected at [facility] by Dr. Turner. Plan: Continue pyridostigmine 30 mg by mouth 4 times a day. Continue prednisone 20 mg by mouth daily We did again discuss signs and symptoms of myasthenic crisis and the patient understands these and will follow closely. Wlagzer3101/20/2024 Overview (01/20/2024): The patient has thymoma identified on CT of the chest.She is status post surgical resection from the thymoma by Dr. Turner at [facility]. Thyroid kldlki4601/20/2024Liver hzsquo0901/20/2024 Overview (01/20/2024): Patient has a lesion identified in the liver. 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 She has established with the Coumadin clinic team to follow this as well Encounters DateTypeDepartmentCare LlijFktxsgmqled70/30/2025Orders Only [facility] [address] [place] [address] Ifrah Colvin MA 04/20/2025 9:00 AM EDTOff[place] [address] Tiffanie Moreno PA Well woman exam with routine gynecological exam; Encounter for screening mammogram for malignant neoplasm of breast; Postmenopausal state04/20/2025linisync Result Encounter [facility] External Department Unsolicited Tiffanie Moreno PA 5Bamboo flowsheet [facility] [address] [place] [address] Tiffanie Moreno PA 04/13/2025Travelfrom Last 3 Months Immunizations ImmunizationAdministration DatesNext DueInfluenza, injectable, MDCK, preservative free, zgzaproaiksl28/05/2019Influenza, recombinant, quadrivalent, injectable, preservative free04/14/2022 Family History Medical HistoryRelationNameCommentsDiabetesFatherLee SponsellerCancerMother Karly SponsellerRelationNameStatusCommentsFatherLee SponsellerAliveMotherSharon SponsellerDeceased Social History Tobacco UseTypesPacks/DayYears UsedDateSmoking Tobacco: NeverSmokeless Tobacco: Never Tobacco Cessation:Counseling Given: Not Answered Alcohol UseStandard Drinks/WeekCommentsYes0 (1 standard drink = 0.6 oz pure alcohol)Caffeien intake on occasionAUDIT-CAnswerDate RecordedQ1: How often do you have a drink containing alcohol?Monthly or less01/20/2024verage Number of DrinksNot on file01/20/2024Q3: How often do you have six or more drinks on one occasion?Never4CommentsNoSex and Gender InformationValueDate RecordedSex Assigned at DkfldJkiutu59/27/2023 7:08 PM EDTLegal SexFemale 09/20/2022 9:28 PM EDTGender InozyvscEsipff20/27/2023 7:08 PM EDTSexual OrientationNot on file Last Filed Vital Signs Vital SignReadingTime TakenCommentsBlood Mxdnnaqj435/8410 9:11 AM EDT Xrxdw9508 3:16 PM ESTTemperature--Respiratory Ekbw8243 9:08 AM EDTOxygen Wtyxsuvems35%07/16/2024 3:16 PM ESTInhaled Oxygen Concentration-- Llvsfk148 kg (221 lb 8 oz)04/20/2025 9:11 AM HCFAojzzi899.6 cm (5' 4 )02/25/2025 8:35 AM EDTBody Mass Index38.02002/25/2025 8:35 AM EDT Plan of Treatment DateTypeDepartmentCare Team (Latest Contact Info)Xznofdnqtts90/19/2026 9:00 AM EDTProcedure Visit [facility] [address] [place] [place] [address] Tiffanie Moreno PA [address] [place] [address] Health MaintenanceDue DateLast DoneCommentsCT Miznrvijtbmh1968Colonoscopy 1968Colorectal Cancer Mrreopbwu1968FIT-DNA1968FIT1970 FOBT1970 6138Bkayqdwlpoekv1968COVID-19 Vaccine ( season) /, 05/24/2021, 10/01/2020, Additional history existsInfluenza Vaccine (#1)/01/2022, 05/13/20196029Yjstycnuz86/26/717759/, 06/05/2023, 02/25/2016Pap Smear810/, 04/14/2024ervical Cancer Fvmrhegmm71/07/2029HPV/Qiizbe4304/14/2029Pneumococcal Vaccine: Pediatrics (0 to 5 Years) and At-Risk Patients (6 to 64 Years)Aged OutNo longer eligible based on patient's age to complete this topic Procedures Procedure NamePriorityDate/TimeAssociated DiagnosisCommentsIGP,APTIMA HPV,AGE DPROQagjobu51/13/2025 9:02 AM EDT PAP TEST, HRLQINGXYsdjkmc08/13/2025 12:00 AM EDTMM TOMOSYNTHESIS SCREENING BI 06/03/2024 1:52 PM EST from Last 3 Months or Most Recently Relevant to Health Maintenance Results * IGP,APTIMA HPV,AGE GDLN (04/20/2025 9:02 AM EDT)ComponentValueRef RangeTest MethodAnalysis TimePerformed AtPathologist SignatureAGE GDLN ACOG TESTINGNote. TBHComment: ?? TESTS ? RESULT ??FLAG ??UNITS ?REF RANGE ??LAB ?? Clinician Provided Cytology Information ?? Source.............Vagina ?? No. of containers..01 ThinPrep Vial Age Algo ACOG Laisha... ??30-65 ? 01 ?FLAG LEGEND: ?L-Low Normal,H-High Normal,LL-Alert Low,HH-Alert High <-Panic Low,>-Panic High,A-Abnormal,AA-Critical Abnormal Performed at: 01 =G ?[facility] [address] ?? [address] [place] [place] ??[address] ?? Sherri Nava MD, IGP, APTIMA HPV, RFX 16/18,45Note.TBHComment: ?? TESTS ? RESULT ??FLAG ??UNITS ?REF RANGE ??LAB DIAGNOSIS: ?02 ?? NEGATIVE FOR INTRAEPITHELIAL LESION OR MALIGNANCY. ?? CELLULAR CHANGES ASSOCIATED WITH ATROPHY ARE PRESENT. Specimen adequacy: ?02 ?? Satisfactory for evaluation. ??No endocervical cells are present. ??This is ?? consistent with a history of hysterectomy. Performed by: ? 02 ?? Darcie Alexander, Learning And Development Consultant ([facility]) . ? 02 Note: ? Note ?02 ?? The Pap smear is a screening test designed to aid in the ?? detection of premalignant and malignant conditions of the ?? uterine cervix. ??It is not a diagnostic procedure and ?? should not be used as the sole means of detecting cervical ?? cancer. ??Both false-positive and false-negative reports do ?? occur. Test Methodology: ? Note ?02 ?? This liquid based ThinPrep(R) pap test was interpreted ?? using the testbirds(R) [employer](TM) Cervical Algorithm whole ?? slide imaging system. HPV Genotype Reflex ?? Note ?02 ?? Criteria not met, HPV Genotype not performed. ?FLAG LEGEND: ?L-Low Normal,H-High Normal,LL-Alert Low,HH-Alert High <-Panic Low,>-Panic High,A-Abnormal,AA-Critical Abnormal Performed at: 02 WB ?[facility] [address] ?? [address] [place] ??[phone] ?? Sherri Nava MD, HPV APTIMANegativeNegativeTBHComment: This nucleic acid amplification test detects fourteen high- risk HPV types (16,18,31,33,35,39,45,51,52,56,58,59,66,68) without differentiation. Performed at: ??=G - [facility] [address] ??[id number] Riveter Helper: Sherri Nava MD, Phone: ??[phone] Performed at: ??WB - [facility] [address] ??[id number] Riveter Helper: Sherri Nava MD, Phone: ??[phone] Specimen (Source)Anatomical Location / LateralityCollection Method / Volume Collection TimeReceived Time04/20/2025 9:02 AM EDT1 1:02 PM EDT Narrative CLIN[facility]NC - 04/23/2025 4:11 PM EDT SPATULA-ALONE VAGINA Authorizing ProviderResult TypeResult StatusAmy [place] PALAB BLOOD ORDERABLES Final ResultPerforming OrganizationAddressCity/State/ZIP CodePhone Number CLINISYNC TBH * PAP TEST, EXTERNAL (04/20/2025 12:00 AM EDT) Narrative Authorizing ProviderResult TypeResult StatusAmy Tiffanie PALAB CYTOLOGY ORDERABLES Final ResultPerforming OrganizationAddressCity/State/ZIP CodePhone Number EXTERNAL LAB * MM TOMOSYNTHESIS SCREENING BI (06/03/2024 1:52 PM EST)Anatomical Region LateralityModalityOtherSpecimen (Source)Anatomical Location / Laterality Collection Method / VolumeCollection TimeReceived Time06/03/2024 1:52 PM EST Narrative 06/03/2024 1:54 PM EST [facility] ?[address] ? [place] [address] ? Mammography Report ? Signed ? Patient: MARTHA,MARNIE L ?MR#: [id number] ?? : 1970 ?Acct:[id number] ?? Age/Sex: 53 / F ?ADM Date: 11/25/24 ?? Loc: MAMMO ? Attending Dr: Tiffanie Moreno ? Ordering Physician: Tiffanie Moreno ?Results: ? Date of Service: 06/02/24 ?Follow Up: ? Procedure(s): MM tomosynthesis screening BI ?? Accession Number(s): [id number] ? cc: Tiffanie Moreno; Physician,Non-Staff M.D. ? Patient Name: ? MARNIE CROSSNUTT ? MR#: [id number] ? : 1970 ? Exam Date: 06/02/2024 ?? Ordering Doctor: JACQUES Moreno . ? RADIOLOGY REPORT ? PROCEDURE: ? MM TOMOSYNTHESIS SCREENING BI ? COMPARISON: ? MM TOMOSYNTHESIS SCREENING BI, 05/30/2023. ??MG MAMM SCREEN 3D ?? GLORIA CAD, 01/06/2021. ??MG MAMM SCREEN GLORIA W CAD, 12/19/2019. ??MG MAMM SCREEN GLORIA ?? W CAD, 07/11/2013. ? INDICATIONS: ? screening for malignant neoplasm of breast ? Calculator Name ? NCI Breast Cancer Risk Assessment Tool ?? 5 Year Breast Cancer Risk ? 1.60% ?? Lifetime Breast Cancer Risk ? 11.20% ?? Personal Breast Cancer ?No ?? Personal Ovarian Cancer ? No ?? Treatments ? None ?? Family Cancers ? Mother with lymphoma cancer at age 50; Mother with ?? meningioma cancer at age 60. ? LOCATION: ? [facility] ? BREAST COMPOSITION: ? There are scattered areas of fibroglandular density. ? FINDINGS: ? DIAGNOSTIC CATEGORY 2--BENIGN FINDING: ? RIGHT BREAST: ??No significant suspicious finding. ??Scattered benign-appearing ?? calcifications are present. ??No significant change has occurred. ? LEFT BREAST: ??No significant suspicious finding. ??Scattered benign-appearing ?? calcifications are present. ??No significant change has occurred. ? RECOMMENDATIONS: ? ROUTINE MAMMOGRAM AND CLINICAL EVALUATION IN 12 MONTHS. ? PLEASE NOTE: ??A NORMAL MAMMOGRAM DOES NOT EXCLUDE THE POSSIBILITY OF BREAST ?? CANCER. ??A CLINICALLY SUSPICIOUS PALPABLE LUMP SHOULD BE BIOPSIED. ? Dictated by: Demar Mills M.D. on 06/03/2024 at 13:49 ? Approved by: Demar Mills M.D. on 06/03/2024 at 13:52 ? Dictated By: ?Demar Mills M.D. ? Signed By: ?06/03/244 ? DD/ 1352 ? TD/TT: ? Plant Utility Person: Procedure Note Radiology, Radiologist, - 06/03/2024 [place] [address] Mammography Report Signed Patient: MARNIE ARANA LMR#: [id number] : 1970Acct:[id number] Age/Sex: 53 / FADM Date: 06/02/24 Loc: MAMMO Attending Dr: Tiffanie Moreno Ordering Physician: Tiffanie Lassiterults: Date of Service: 06/02/24Follow Up: Procedure(s): MM tomosynthesis screening BI Accession Number(s): [id number] cc: Tiffanie Moreno; Physician,Non-Staff M.D. Patient Name: MARNIE ARANA MR#: [id number] : 1970 Exam Date: 06/02/2024 Ordering Doctor: JACQUES Moreno . RADIOLOGY REPORT PROCEDURE: MM TOMOSYNTHESIS SCREENING BI COMPARISON: MM TOMOSYNTHESIS SCREENING BI, 05/30/2023. MG MAMM OADQPP9T LGORIA CAD, 01/06/2021. MG MAMM SCREEN GLORIA W [...] meningioma cancer at age 58. LOCATION: [facility] BREAST COMPOSITION: There are scattered areas of [...] M.D. Signed By:06/03/24 1354 DD/ 1352 TD/TT: Plant Utility Person: Authorizing ProviderResult TypeResult StatusAmy Tiffanie PACLINISYNC IMAGINGFinal Result from Last 3 Months or Most Recently Relevant to [place] [phone] Care Teams Team MemberRelationshipSpecialtyStart DateEnd Date Maida Teixeira NP [address] [place] [id number] Primary Care ProviderFamily [place] [address]/7/25
--- NOTE | 2025-06-08 07:08 | MM_ITS ---
Patient Name: MARNIE THOMAS MR#: [id number] : 1970 Exam Date: 06/08/2025 Ordering Doctor: JACQUES CALLOWAY . RADIOLOGY REPORT PROCEDURE: MM TOMOSYNTHESIS SCREENING BI COMPARISON: MM TOMOSYNTHESIS SCREENING BI, 06/02/2024. MM TOMOSYNTHESIS SCREENING BI, 05/30/2023. MG MAMM SCREEN 3D GLORIA CAD, 01/06/2021. MG MAMM SCREEN GLORIA W CAD, 07/11/2013. INDICATIONS: Screening Calculator Name NCI Breast Cancer Risk Assessment Tool 5 Year Breast Cancer Risk 1.70% Lifetime Breast Cancer Risk 10.90% Personal Breast Cancer No Personal Ovarian Cancer No Treatments None Family Cancers Mother with lymphoma cancer at age 50; Mother with meningioma cancer at age 60. LOCATION: [facility] BREAST COMPOSITION: There are scattered areas of fibroglandular density. FINDINGS: RIGHT BREAST: No significant suspicious finding. Similar focal asymmetry is present. Benign-appearing calcifications are present. LEFT BREAST: No significant suspicious finding. Benign-appearing calcifications are present. DIAGNOSTIC CATEGORY 2--BENIGN FINDING. NO CHANGE FROM COMPARISON. RECOMMENDATIONS: ROUTINE MAMMOGRAM AND CLINICAL EVALUATION IN 12 MONTHS. Dictated by: Juan Alberto Ledbetter MD on 06/08/2025 at 13:11 Approved by: Juan Alberto Ledbetter MD on 06/08/2025 at 13:17
--- OUTSIDE RECORDS SUMMARY | 2025-06-08 07:08 | XMS_ITS | CCD ---
Author Organization [facility] Care Team Providers Care Locomotive Repairer Diesel Name Role Phone PATRICIA, DR HUGGINS Consulting Unavailable KARASIK, DR HUGGINS Admitting Unavailable DEFRANCE, DR GOTTI Primary Care Unavailable KARASIK, DR HUGGINS Attending Unavailable KARASIK, DR HUGGINS Attending Unavailable KARASIK, DR HUGGINS Consulting Unavailable DEFRANCE, DR GOTTI Primary Care Unavailable KARASIK, DR HUGGINS Admitting Unavailable ZIEBER, DR AMARI Gonzalez Consulting Unavailable ROSS, AKIL Admitting Unavailable DEFRANCE, DR GOTTI Primary Care Unavailable ROSSAKIL Attending Unavailable ROSS, AKIL Consulting Unavailable NILL, [...] MD Primary Care Provider Tiffanie Hernandez Unavailable Cristian Martinez Primary Care Provide r CRISTIAN TEIXEIRA Referring Unavailable CRISTIAN TEIXEIRA Primary Care Unavailable KANDY VALLECILLO Referring Unavailable QUINTEN JUNE Attending Unavailable ANA MARÍA MCKEON Primary Care Unavaila KANDY Rivera Referring Unavailable ANA MARÍA MCKEON Primary Care Unavaila KANDY Rivera Referring Unavailable GUDELIA COE Attending Unavailable ANA MARÍA MCKEON Primary Care Unavaila ZEFERINO Dubon Attending Unavailable ANA MARÍA MCKEON Primary Care Unavaila QUINTEN Alberto Attending Unavailable MCKEON, ANA MARÍA PEPPER Primary Care Unavaila ble RUTH ANN, KANDY Referring Unavailable DE YANETH, ANA MARÍA PEPPER Primary Care Unavaila ble RUTH ANN, KANDY Referring Unavailable DE YANETH, ANA MARÍA PEPPER Primary Care Unavaila ble RUTH ANN, KANDY Attending Unavailable QUINTEN JUNE Attending Unavailable RUTH ANN, KANDY Referring Unavailable MILADYS YANETH, ANA MARÍA PEPPER Primary Care Unavaila ble ZEFERINO DEOSUZA Attending Unavailable MILADYS YANETH, ANA MARÍA PEPPER Primary Care Unavaila ble Schlajeremiaher 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-TOE STRIPPER, Cristian Primary Care Provide r CRISTIAN TEIXEIRA Attending Unavailable SCHLACHTER, CRISTIAN Referring Unavailable SCHLACHTER, CRISTIAN Primary Care Unavailable SCHLACHTER, CRISTIAN Attending Unavailable SCHLACHTER, CRISTIAN Referring Unavailable SCHLACHTER, CRISTIAN Primary Care Unavailable SCHLACHTER, CRISTIAN Attending Unavailable SCHLACHTER, CRISTIAN Referring Unavailable SCHLACHTER, CRISTIAN Primary Care Unavailable SCHLACHTER, CRISTIAN Attending Unavailable SCHLACHTER, CRISTIAN Referring Unavailable SCHLACHTER, CRISTIAN Primary Care Unavailable Schlachter GAS LOAD DISPATCHER, Cristian Unavailable ENDER TREVIÑO Attending Unavailable SCHGISSELL, CRISTIAN Referring Unavailable ENDER TREVIÑO Referring Unavailable CLAIRE DE LOS SANTOS Attending Unavailable TIFFANIE MORENO Attending Unavailable Schgissell GAS LOAD DISPATCHER, Cristian Unavailable Ana María Adorno MD Primary Care Provider Tiffanie Hernandez Unavailable Medications Current Medications MedicationDrug Class(es)DatesSig (Normalized)Sig (Original)acetaminophen 500 mg oral tablet (4 sources)Start: 09-15-2023 End: 71-18-5854ovny 2 tablets by mouth every six hoursacetaminophen (TYLENOL) 500 mg tablet Indications: Postoperative pain , Thymoma , Myasthenia gravis without exacerbation (HCC) Take 2 tablets by mouth every 6 hours for 7 days. 56 tablet 0 / ActiveComment on above:Take 2 tablets by mouth every 6 hours for 7 days.Calcium (4 sources)Phosphate Binder, CalciumCALCIUM ORAL Take by mouth. Activecefdinir 300 mg oral capsule (1 source)Cephalosporin AntibacterialStart: 05-20-2024 End: 37-96-5269jaev 1 capsule by mouth in the morning, then take 1 capsule by mouth at bedtimecefDINIR (OMNICEF) 300 mg capsule Take 1 capsule (300 mg total) by mouth in the morning and 1 capsule (300 mg total) before bedtime. Do all this for 10 days. 20 capsule 05/20/2024 05/30/2024 Activecholecalciferol, vitamin D3, (VITAMIN D3 ORAL) (20 sources)take 2000 [IU] by mouth once dailycholecalciferol, vitamin D3, (VITAMIN D3 ORAL) Take 2,000 Units by mouth once daily. Activecholecalciferol, vitamin D3, (VITAMIN D3 ORAL) Take by mouth once daily. Activecholecalciferol, vitamin D3, (VITAMIN D3 ORAL) Take by mouth once daily. 0 Activecholecalciferol, vitamin D3, (VITAMIN D3 ORAL) Take by mouth. 0 ActiveComment on above:Take by mouth.ibuprofen 800 mg oral tablet (20 sources)Nonsteroidal Anti-inflammatory DrugStart: 02-25-2025 End: 90-75-0738ztie 1 tablet by mouth every eight hoursibuprofen 800 MG tablet Indications: Posterior tibial tendinitis of right lower extremity Take 1 tablet (800 mg) by mouth every 8 (eight) hours 270 tablet 02/25/2025 05/26/2025 Active Start: 09-15-2023 End: 35-95-9257mzib 1 tablet by mouth every six hours as needed for pain ibuprofen (MOTRIN) 600 mg tablet Indications: Myasthenia gravis (HCC) , Postoperative pain , Thymoma Take 1 tablet by mouth every 6 hours as needed for pain. 60 tablet 11/29/2023 ActiveComment on above:Take 1 tablet by mouth every 6 hours as needed for pain.iv contrast (will be provided with radiology test) (8 sources)Start: 04-29-2024 End: 58-61-5535rr contrast (will be provided with radiology test) CT Chest W - Inject, intravenously, once for 1 dose.No IV access, insert saline lock prior to the beginning of sedation, infusion, injection of imaging exam. Discontinue saline lock post exam. If Pt. has a central line or IVAD, may access for adminis tration according to line specific nursing protocol. Once exam is complete flush line and de-accessaccording to line specific nursing protocol in the CT contrast administration guidelines link. 1 Each 04/29/2024 04/30/2024 Active Start: 10-29-2023 End: 47-48-0857fl contrast (will be provided with radiology test) CT Chest W - Inject, intravenously, once for 1 dose.No IV access, insert saline lock prior to the beginning of sedation, infusion, injection of imaging exam. Discontinue saline lock post exam. If Pt. has a central line or IVAD, may access for adminis tration according to line specific nursing protocol. Once exam is complete flush line and de-accessaccording to line specific nursing protocol in the CT contrast administration guidelines link. 1 Each 0 10/29/2023 10/30/2023 Active Start: 10-11-2023 End: 56-46-0990gh contrast (will be provided with radiology test) CT Chest W - Inject, intravenously, once for 1 dose.No IV access, insert saline lock prior to the beginning of sedation, infusion, injection of imaging exam. Discontinue saline lock post exam. If Pt. has a central line or IVAD, may access for adminis tration according to line specific nursing protocol. Once exam is complete flush line and de-accessaccording to line specific nursing protocol in the CT contrast administration guidelines link. 1 Each 10/11/2023 10/12/2023 Start: 10-11-2023 End: 10-30-3347pk contrast (will be provided with radiology test) CT Chest W - Inject, intravenously, once for 1 dose.No IV access, insert saline lock prior to the beginning of sedation, infusion, injection of imaging exam. Discontinue saline lock post exam. If Pt. has a central line or IVAD, may access for adminis tration according to line specific nursing protocol. Once exam is complete flush line and de-accessaccording to line specific nursing protocol in the CT contrast administration guidelines link. 1 Each 0 10/11/2023 10/12/2023 Start: 10-11-2023 End: 77-32-5268fd contrast (will be provided with radiology test) CT Chest W - Inject, intravenously, once for 1 dose.No IV access, insert saline lock prior to the beginning of sedation, infusion, injection of imaging exam. Discontinue saline lock post exam. If Pt. has a central line or IVAD, may access for adminis tration according to line specific nursing protocol. Once exam is complete flush line and de-accessaccording to line specific nursing protocol in the CT contrast administration guidelines link. 1 Each 0 10/11/2023 10/12/2023 Active Comment on above:CT Chest W -Inject, intravenously, once for 1 [...] protocol in theCT contrast administration guidelines link. oxyCODONE hydrochloride 5 mg oral tablet (4 sources)Opioid AgonistStart: 09-15-2023 End: 45-67-9596zfyd 1 tablet by mouth every six hours as needed for pain oxyCODONE IR (ROXICODONE) 5 mg immediate release tablet Indications: Myasthenia gravis (HCC) , Postoperative pain , Thymoma Take 1 tablet by mouth every 6 hours as needed for pain for up to 7 days. 28 tablet 0 09/15/2023 09/22/2023 Active Comment on above:Take 1 tablet by mouth every 6 hours as needed for pain for up to 7 days.polyethylene glycol 3350 78682 mg powder for oral solution (4 sources)Osmotic LaxativeStart: 09-15-2023 End: 08-43-3120pexsgifuflss glycol 3350 17 gram packet Take 1 Packet by mouth once daily for 7 days. For prevention of postoperative opioid induced constipation.. Dissolve dose in 4 - 8 ounces of liquid and take asdirected. 7 Packet 0 09/15/2023 09/22/2023 ActiveComment on above:Take 1 Packet by mouth once daily for 7 days. For prevention of postoperative opioid induced constip ation.. Dissolve dose in 4 - 8 ounces of liquid and take as directed.predniSONE 1 mg oral tablet (20 sources)Start: 04-29-2024 End: 71-09-4823uxvc 4 tablets by mouth once daily, then take 3 tablets by mouth once daily, then take 2 tablets bymouth once daily, then take 1 tablet by mouth once dailypredniSONE (DELTASONE) 1 mg tablet Take 4 tablets by mouth once daily for 31 days, THEN 3 tablets once daily for 31 days, THEN 2 tablets once daily for 31 days, THEN 1 tablet once daily. 310 tablet 04/29/2024 08/31/2024 Active Start: 04-29-2024 End: 26-01-9229ishukzPUTN (DELTASONE) 1 mg tablet Take 1 tablet (1 mg total) by mouth. 04/29/2024 08/31/2024 ActiveStart: 02-06-2024 End: 14-11-1481vibi 1 tablet by mouth once dailypredniSONE (DELTASONE) 2.5 mg tablet Take 1 tablet by mouth once daily. 30 tablet 0 02/06/2024 03/07/2024 ActiveStart: 10-29-2023 End: 20-91-9642zkyu 1.5 tablets by mouth once dailypredniSONE (DELTASONE) 10 mg tablet Take 1.5 tablets by mouth once daily. 135 tablet 1 10/29/2023 04/26/2024 ActiveStart: 07-23-2023 End: 71-96-7804eqsa 2 tablets by mouth in the morningpredniSONE (DELTASONE) 10 mg tablet Take 2 tablets (20 mg total) by mouth in the morning. 0 08/30/2023 02/26/2024 Activetake 1 tablet by mouth in the morningpredniSONE (Deltasone) 10 MG tablet Take 10 mg by mouth in the morning and 10 mg before bedtime. Active End: 93-09-7169ovsq 1 tablet by mouth once dailypredniSONE (DELTASONE) 5 mg tablet Take 5 mg by mouth once daily. 04/29/2024 DiscontinuedComment on above: Take 2 tablets by mouth once daily.pyridostigmine bromide 30 mg oral tablet (20 sources)Start: 08-07-2023 End: 37-48-1026pfCDZxsabsllji bromide 30 mg tablet Take 1 tablet by mouth in the morning and 1 tablet at noon and 1 tablet in the evening and 1 tablet before bedtime. 0 08/30/2023 02/26/2024 Activetake 1 tablet by mouth once daily pyRIDostigmine bromide 30 mg tab Take 30 mg by mouth once daily. Active End: 97-81-9202ywhz 1 tablet by mouth three times dailypyRIDostigmine bromide 30 mg tablet Take 30 mg by mouth 3 (three) times a day. 05/20/2024 Discontinued Comment on above:Take 1 tablet by mouth four times daily. Completed/Discontinued Medications MedicationDrug Class(es)DatesSig (Normalized)Sig (Original)mupirocin 0.02 mg/mg topical ointment (1 source)RNA Synthetase Inhibitor AntibacterialStart: 38-89-9629qgyuzlbds (BACTROBAN) 2 % ointment Apply a small amount in each nostril using a cotton swab twice the day before surgery and once the morning of surgery. 22 g 0 09/12/2023 ActiveComment on above:Apply a small amount in each nostril using a cotton swab twice the day before surgery and once the morning of surgery. Problems Active Problems Problem ClassificationProblemDateDocumented DateEpisodic/ChronicAcquired foot deformities (2 sources)Acquired varus deformity of right ankle; Translations: [Valgus deformity, not elsewhere classified,right ankle]76-60-1944RwwxptdsHqjigmimh and vision defects (15 sources)Visual impairment; Translations: [Unspecified visual loss]Onset: 797364-43-0512IrgjjozRlmdqu; other and unspecified primary (4 sources)Malignant tumor of thymus; Translations: [Malignant neoplasm of thymus]80-08-6107WywyledXedngk; other and unspecified primary (1 source)Malignant neoplasm of thymus; Translations: [Malignant neoplasm of thymus (HCC)]Onset: 34-13-6386KptpfjyGgwxbaasviqhk and screening for infectious disease (5 sources)Encounter for immunization; Translations: [Encounter for screening for human papillomavirus (HPV)]Onset: 63-12-8323QaoagvorEcnqw acquired deformities (2 sources)Equinus contracture of the ankle; Translations: [Contracture, right ankle]75-54-9356DjgsqbuAuzpl aftercare (1 source)Surgical follow-up; Translations: [Encounter for follow-up examination after completed treatment for conditions other than malignant neoplasm] 86-82-4581PeyxhaekWswbm and unspecified benign neoplasm (1 source)Benign neoplasm of thymus; Translations: [Benign neoplasm of thymus] 50-29-1530CwqongppYfwpz connective tissue disease (2 sources)Tendinitis of right posterior tibial tendon; Translations: [Posterior tibial tendinitis, right leg]18-12-2592UbsehjwgAueom connective tissue disease (2 sources)Pain in right foot; Translations: [Pain in right foot]02-25-2025 EpisodicOther liver diseases (16 sources)Lesion of liver; Translations: [Liver disease, unspecified]Onset: 263017-45-9544InqyrywLzzmc liver diseases (1 source)Liver disease, unspecified; Translations: [Lesion of liver]Onset: 25-68-5886XqpwbulSuyxg nervous system disorders (20 sources)Myasthenia gravis; Translations: [Myasthenia gravis without (acute) exacerbation]Onset: 462493-69-9092BdhdxjeGedeo nervous system disorders (20 sources)Myasthenia gravis without exacerbation; Translations: [Myasthenia gravis without (acute) exacerbation]10-01-7052QuvytjqZzmcm nervous system disorders (2 sources)Myasthenia gravis without (acute) exacerbation; Translations: [Myasthenia gravis without exacerbation (HCC)]Onset: 74-60-5343JafouskTnihs nervous system disorders (2 sources)Difficulty walking; Translations: [Difficulty in walking, not elsewhere classified]46-57-1787YduzfrqKlugn non-traumatic joint disorders (2 sources)Acute ankle pain; Translations: [Pain in right ankle and joints of right foot]94-92-1041LwfejebwRrasd non-traumatic joint disorders (1 source)Pain in right ankle and joints of right foot; Translations: [Pain in right ankle and joints of right foot]Onset: 07-88-5393RsvwygbaFccrd non- traumatic joint disorders (1 source)Ankle painOnset: 27-27-5240QqbalyhtPviid non-traumatic joint disorders (2 sources)Instability of joint of right ankle; Translations: [Other instability, right ankle]02-27-5135PnvadsezQjjsq screening for suspected conditions (not mental disorders or infectious disease) (20 sources)Encounter for screening for malignant neoplasm of colon; Translations: [Encounter for screening mammogram for malignant neoplasm of breast]Onset: 09-75-1918YdglleqjLsozd upper respiratory disease (2 sources)Mediastinal mass; Translations: [Other diseases of mediastinum, not elsewhere classified]20-01-6837LuwnquwwZnsai upper respiratory disease (1 source)Other diseases of mediastinum, not elsewhere classified; Translations: [Mediastinal mass]Onset: 70-30-3367GivbydjyKtdqcgod codes; unclassified (4 sources)Postmenopausal state; Translations: [Asymptomatic menopausal state] 15-85-4352QrhcpvgyGzuuwww disorders (20 sources)Multinodular goiter; Translations: [Nontoxic multinodular goiter] Onset: 361712-62-0368PlioeenZpacjiixtabz (1 source)Annual ExamOnset: 09-16-2024 Past or Other Problems Problem ClassificationProblemDateDocumented DateEpisodic/ChronicMood disorders (6 sources)Mood disordersOnset: 02-04-2020 Resolved: 374546-64-6982Yhjlchyrt of unspecified nature or uncertain behavior (20 sources)Thymoma; Translations: [Neoplasm of unspecified behavior of other specified sites]Onset: 335502-32-3340MtkiyzpkZmvtg nervous system disorders (20 sources)Postoperative pain ; Translations: [Other acute postprocedural pain] Onset: 076405-13-8638OxhxyhdkQgnxl upper respiratory disease (1 source)Nasal congestionOnset: 04-60-3808HfqvvcabGuoha upper respiratory infections (2 sources)Acute maxillary sinusitis; Translations: [Acute maxillary sinusitis, unspecified]Onset: 802483-03-9480ZigrotlpGasjiwqt codes; unclassified (1 source)Acquired absence of both cervix and uterus; Translations: [ACQUIRED ABSENCE BOTH CERVIX AND UTERUS]Onset: 02-21-8765ZmwcltdiGcfveoer codes; unclassified (1 source)Asymptomatic menopausal state; Translations: [ASYMPTOMATIC MENOPAUSAL STATE]Onset: 68-19-7369OhkjxwmiUaracucv codes; unclassified (1 source)Family history of other malignant neoplasms of lymphoid, hematopoietic and related tissues; Translations: [FAM HX OTH MAL ENID LYMPH HEMATPOETC]Onset: 77-02-0178YmkvqmmrCpqwxdml codes; unclassified (1 source)Family history of malignant neoplasm of other organs or systems; Translations: [FAM HX MALIG NEOPLASM OTH ORGN/SYS]Onset: 94-74-6171Pwfbdlax Residual codes; unclassified (20 sources)Problem with continuity of care; Translations: [Problem with continuity of care]Onset: 344750-75-3074JfwavcfbMbwmjgpnobsi (6 sources)Onset: 02-04-2020 Resolved: Results Test NameValueInterpretationReference RangeFacilityIGP,APTIMA HPV,AGE GDLNon 48-15-6800MCB GDLN ACOG TESTINGNote.NOMS HealthcareComment on above:TESTS RESULT FLAG UNITS REF RANGE LAB Clinician Provided Cytology Information Source.............Vagina No. of containers..01 ThinPrep Vial Age Algo ACOG Laisha... 30-65 01 FLAG LEGEND: L-Low Normal,H-High Normal,LL-Alert Low,HH-Alert High <-Panic Low,>-Panic High,A-Abnormal,AA-Critical Abnormal Performed at: 01 =G [address] [address] Sherri Nava MD, HPV APTIMANegativeNegativeNOMS HealthcareComment on above:This nucleic acid amplification test detects fourteen high- risk HPV types (16,18,31,33,35,39,45,51,52,56,58,59,66,68) without differentiation. Performed at: =G - [facility] [id number] Floor Coverings Installer: Sherri Nava MD, Phone: [phone] Performed at: - [facility] [id number] Floor Coverings Installer: Sherri Nava MD, Phone: [phone] IGP, APTIMA HPV, RFX 16/18,45Note.[facility] HealthcareComment on above:TESTS RESULT FLAG UNITS REF RANGE LAB DIAGNOSIS: 02 NEGATIVE FOR INTRAEPITHELIAL LESION OR MALIGNANCY. CELLULAR CHANGES ASSOCIATED WITH ATROPHY ARE PRESENT. Specimen adequacy: 02 Satisfactory for evaluation. No endocervical cells are present. This is consistent with a history of hysterectomy. Performed by: 02 Darcie Alexander, Director Of Outreach ([facility]) . 02 Note: Note 02 [...] liquid based ThinPrep(R) pap test was interpreted using the Holograam(R) Movi Medical(TM) Cervical Algorithm whole slide imaging system. HPV Genotype Reflex Note 02 Criteria not met, HPV Genotype not performed. FLAG LEGEND: L-Low Normal,H-High Normal,LL-Alert Low,HH-Alert High <-Panic Low,>-Panic High,A-Abnormal,AA-Critical Abnormal Performed at: [address] [address] Sherri Nava MD, SP[facility]ULA-[facility] HospitalXR Foot - right 3 Viewson 32-43-6370Ftwhdrt Result: AP, medial oblique, lateral views are weight-bearing. Slightly decreased calcaneal inclination and increased talar declination. Enthesophyte at the insertion of the Achilles tendon and plantar fascia. First ray elevation. Approximately 30 percent talar head uncoverage. No fractures or dislocations noted. Joints appear well-maintained.[facility] Study observation (narrative)[facility] CenterCNOVon 61-24-1927DUPPMzacjp Visit (THORMN) MARNIE ARANA ([id number]) 1970 F Date Time Provider Department 11/26/24 2:00 PM GUDELIA COE THORIA During your visit today, we recorded the following information about you: Temperature Pulse Respiration Blood pressure 98.2 degrees 79/minute 14/minute 132/53 Weight Height 100.4 kg 1.6 m Gudelia Coe, 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.TOE STRIPPER 11/26/2024 3:12 PM Signed Part of this note was copied from previous note, all content has been individually reviewed, updated as necessary, and thoroughly reviewed. [facility] - OUTPATIENT THORACIC SURGERY CLINIC NOTE PT NAME: Marnie Arana [facility] NO: [id number] THORACIC SURGEON: Jasiel Turner M.D. DATE OF [...] been determined by the performing laboratory within [facility] [place] ([facility], [facility], [facility], [facility], [facility], [facility], or [facility]) in a manner consistent with CLIA requirements. [...] vision, symptoms began 05/2023. 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 Going to [employer] twice! Doing very well. Completed steroids end [...] symptoms recur RV in 6 months Quinten June MD [facility] [place] [facility] [address] [place] [address] I spent a total of 25 minutes on the date of the service which included preparing to see the patient, czpe-hc-czyr patient care, completing clinical documentation, obtaining and/or reviewing separately obtained history, performing a medically appropriate examination, counseling and educating the patient/family/caregiver. Referring Provider: KANDY VALLECILLO [[id number]] Allergies As of Date: 11/26/2024 (No Known Allergies) Date Reviewed: 11/26/2024 Reviewed by: Vonda Carrillo - Fully Assessed Reason for Visit: Follow Up [171] Primary Visit Diagnosis:Myasthenia gravis without exacerbation (HCC) [G70.00] Order(s):PROVIDER ORDERED FOLLOW UP [5405555] Order #: [id number]: 1 FUTURE Prescriptions as of 11/26/2024 - [...] exacerbation (HCC) [G* Encounter Status:Closed by QUINTEN JUNE on 11/26/24[facility] CHEST W IVCONon 39-10-5589PH CHEST W IVCON* * *Final Report* * * DATE OF EXAM: Nov 26 2024 1:29PM [facility] 0539 - CT CHEST W IVCON / [...] fibrosis; no compelling CT evidence of recurrence Master Control Engineer: JAIME Transcribe Date/Time: Nov 26 2024 1:39P Dictated by : ALYSA DELGADO MD This examination was interpreted and the report reviewed and electronically signed by: ALYSA DELGADO MD on Nov 26 2024 1:49PM EST [id number] Wert County Hospital AND AUTO DIFFon 56-80-4400QIILIEMP BASOPHIL0.0 X10E9/LNormal0.0-0.2PMount St. [facility] Comment on above:Performed By: #### JU, LUKE, 53910-4 #### [facility] ([id number]) [address], [address] [place], [place] [address]RSCQGYVN NEUTROPHIL4.2 X10E9/LNormal1.5-6.6ProEnnis Regional Medical CenterComment on above:Performed By: #### CBCA CMP, 69529-1 #### [facility] ([id number]) [address], [address] [place] [address]Jabyguazt/100 WBC (Bld)0.6 %[facility] Comment on above:Performed By: #### CBCA CMP, 11917-2 #### [facility] ([id number]) [address], [address] [place], [place] [address]Zyarthcwojv (Bld) [#/Vol]0.4 10*3/uLNormal0.0-0.4[facility] Anderson HospitalComment on above:Performed By: #### CBCA, CMP, 06149-0 #### [facility] ([id number]) [address], [address] [place], [place] [address]Swmsjipccdq/100 WBC (Bld)6.3 %NormalMercy Health Anderson Hospital Comment on above:Performed By: #### CBCLUKE Begum, 20670-5 #### [facility] ([id number]) [address], [address] [place], [place] [address]Jtufbdenolk distribution width (RBC) [Ratio]13.8 %Normal 11.5-15.0Mer[facility] Anderson HospitalComment on above:Performed By: #### CBCKel CMP, 38756-2 #### [facility] [facility] ([id number]) [address], [address] [place], [place] [address]Ustpdvxjso (Bld) [Volume fraction]39.1 %Waxuoz91-90NbuYjkilnEnnis Regional Medical CenterComment on above:Performed By: #### CBCA, CMP, 14910-5 #### [facility] ([id number]) [address], [address] [place], [place] [address]Blxwqcmvhv (Bld) [Mass/Vol]13.2 g/vGNzgbln13.7-15.5PMount St. Mary HospitalComment on above:Performed By: #### JU CMP, 22338-6 #### [facility] ([id number]) [address], [address] [place], [place] [address]Tztfoavahvw (Bld) [#/Vol]1.1 10*3/uLNormal1.0-3.5PMount St. Mary HospitalComment on above:Performed By: #### LUKE DODD, 60828-0 #### [facility] ([id number]) [address], [address] [place], [place] [address]Hvutggbwjuo/100 WBC (Bld)17.2 %NormalProEnnis Regional Medical Center Comment on above:Performed By: #### JU CMP, 95476-4 #### [facility] ([id number]) [address], [address] [place], [place] [address]IMW (RBC) [Entitic mass]30.4 uzXiaxtj02-27UjmIkqgszEnnis Regional Medical CenterComment on above:Performed By: #### LUKE DODD, 92909-1 #### [facility] ([id number]) [address], [address] [place], [place] [address]TGGN (RBC) [Mass/Vol]33.8 g/xCEbrcdk67-91PddJocvseEnnis Regional Medical CenterComment on above:Performed By: #### JU CMP, 07567-1 #### [facility] ([id number]) [address], [address] [place], [place] [address]JKM (RBC) [Entitic vol]90 xJOufggi85-973LdfNkkwuf [facility]remont HospitalComment on above:Performed By: #### CBCKel CMP, 16161-1 #### [facility] ([id number]) [address], [address] [place], [place] [address]Mfbqbffce (Bld) [#/Vol]0.5 10*3/uLNormal0-0.9Mer[facility] Health Anderson HospitalComment on above:Performed By: #### CBCKel, CMP, 52141-2 #### [facility] ([id number]) [address], [address] [place] [address]Ofgmtglsb/100 WBC (Bld)7.4 %NormalMercy Health Anderson Hospital Comment on above:Performed By: #### CBCKel, CMP, 33386-6 #### [facility] ([id number]) [address], [address] [place] [address]Slsimmocyud/100 WBC (Bld)68.5 %NormalMercy Health Anderson Hospital Comment on above:Performed By: #### CBCKel, CMP, 71351-3 #### [facility] ([id number]) [address], [address] [place], [place] [address]Iuhikqvp mean volume (Bld) [Entitic vol]8.9 fLNormal7-12 [facility] Anderson HospitalComment on above:Performed By: #### CBCKel, CMP, 76734-6 #### [facility] ([id number]) [address], [address] [place] [address]Gzvbbbhaf (Bld) [#/Vol]273 10*3/jXUchlqi067-020GxwVulttg [facility]ont HospitalComment on above:Performed By: #### CBCKel, CMP, 05740-8 #### [facility] ([id number]) [address], [address] [place], [place] [address]VVB COUNT4.36 X10E12/LNormal3.80-5.20[facility] Comment on above:Performed By: #### CBCA, CMP, 55881-9 #### [facility] ([id number]) [address], [address] [place] [address]YYP (Bld) [#/Vol]6.2 10*3/uLNormal4.0-11.0Mer[facility] Health Anderson HospitalComment on above:Performed By: #### LUKE DODD, 46171-5 #### [facility] ([id number]) [address], [address] [place], [place] [address]NSEFSEKIJBPZF METABOLIC PANELon 09-48-2271Hjdpzgz [Mass/Vol]4.1 g/dLNormal3.2-5.3PMount St. Mary HospitalComment on above:Performed By: #### LUKE DODD, 95470-7 #### [facility] ([id number]) [address], [address] [place], [place] [address]RHT [Catalytic activity/Vol]64 U/ZNexkiu92-545UecLpbczbMercy Health Anderson HospitalCombeaumont hospital on above:Performed By: #### LUKE DODD, 33327-7 #### [facility] ([id number]) [address], [address] [place], [place] [address]SYD [Catalytic activity/Vol]17 U/LNormal0-31PMount St. Mary HospitalComment on above:Performed By: #### LUKE DODD, 30540-9 #### [facility] ([id number]) [address] [place], [place] [address]Euewp gap [Moles/Vol]9 mmol/LNormal5-15Mer[facility] Health Anderson HospitalComment on above:Performed By: #### LUKE DODD, 17736-8 #### [facility] ([id number]) [address], [address] [place], [place] [address]GNV [Catalytic activity/Vol]18 U/LNormal0-41ProEnnis Regional Medical CenterComment on above:Performed By: #### LUKE DODD, 00786-9 #### [facility] ([id number]) [address], [address] [place], [place] [address]Gxnxxxizh [Mass/Vol]0.4 mg/dLNormal0.3-1.2PMount St. Mary HospitalComment on above:Performed By: #### LUKE DODD, 34207-2 #### [facility] ([id number]) [address], [address] [place], [place] [address]Tutlrue [Mass/Vol]9.0 mg/dLNormal8.5-10.5PMount St. Mary HospitalComment on above:Performed By: #### LUKE DODD, 60956-4 #### [facility] ([id number]) [address], [address] [place], [place] [address]Uynbpscx [Moles/Vol]104 mmol/REopqxk25-799UmlLlhjukEnnis Regional Medical CenterComment on above:Performed By: #### LUKE DODD, 89032-3 #### [facility] ([id number]) [address] [place], [place] [address]WM5 [Moles/Vol]25 mmol/MFxsnmy12-31MiyRysejsMount St. Mary Hospital Comment on above:Performed By: #### LUKE DODD, 19799-1 #### [facility] ([id number]) [address], [address] [place], [place] [address]Srmpjpmtme [Mass/Vol]0.75 mg/dLNormal0.40-1.00Mercy Health Anderson HospitalComment on above:Result Comment: METHOD TRACEABLE TO IDMS STANDARD Performed By: #### LUKE DODD, 06664-1 #### [facility] ([id number]) [address], [address] [place], [place] [address]iQKB (CKD-EPI) NON-RACE DEPENDENT>90Normal>59ProEnnis Regional Medical CenterComment on above:Result Comment: Reported eGFR is based on the CKD-EPI 2020 equation that does not use a race coefficient.Performed By: #### LUKE DODD, 85056-3 #### [facility] ([id number]) [address] [place], [place] [address]Aavcstx [Mass/Vol]122 mg/vKAyjc77-53DaeYyslwk [facility] Comment on above:Performed By: #### LUKE DODD, 58113-4 #### [facility] ([id number]) [address], [address] [place] [address]Gxlsuhlhm [Moles/Vol]4.2 mmol/LNormal3.5-5.0Mer[facility] Health Anderson HospitalComment on above:Performed By: #### LUKE DODD, 91504-4 #### [facility] ([id number]) [address], [address] [place], [place] [address]Wuchlzw [Mass/Vol]6.7 g/dLNormal6.0-8.0ProEnnis Regional Medical CenterComment on above:Performed By: #### LUKE DODD, 15718-1 #### [facility] ([id number]) [address], [address] [place] [address]Gsdvyy [Moles/Vol]138 mmol/FMuftxr141-052PeuVkoaxg [facility] HospitalComment on above:Performed By: #### LUKE DODD, 34734-4 #### [facility] ([id number]) [address], [address] [place] [address]Gpjs nitrogen [Mass/Vol]17 mg/dLNormal5-23ProEnnis Regional Medical CenterComment on above:Performed By: #### LUKE DODD, 17237-0 #### [facility] ([id number]) [address], [address] [place] [address]Riyhq 1996 panelon 96-31-9142Mckfdemcndt [Mass/Vol]168 mg/dL Vestpu795-573TynKimpsoEnnis Regional Medical CenterComment on above:Performed By: #### LUKE DODD, 44436-7 #### [facility] ([id number]) [address], [address] [place] [address]Zkjjswmmcei in HDL [Mass/Vol]32 mg/dLLow>39ProEnnis Regional Medical CenterComment on above:Result Comment: HDL <40 mg/dL - High Risk HDL > or = 40mg/dL- Desirable HDL >60 mg/dL - Negative Risk Performed By: #### LUKE DODD, 83771-1 #### [facility] ([id number]) [address], [address] [place], [place] [address]Aqwvrcyeatd in LDL [Mass/Vol]95 mg/dLNormal<130ProEnnis Regional Medical CenterComment on above:Result Comment: LDL <100 mg/dL - Desirable LDL >160 mg/dL - High Risk Performed By: #### LUKE DODD, 39822-5 #### [facility] ([id number]) [address], [address] [place], [place] [address]Zqunihiyzyn in VLDL [Mass/Vol]41 mg/dLHigh0-30ProEnnis Regional Medical CenterComment on above:Performed By: ###Earline DODD CMP, 64637-1 #### [facility] ([id number]) [address], [address] [place], [place] [address]XTYQVJMRUSL:HDL5.3High1.0-5.0ProEnnis Regional Medical CenterComment on above:Performed By: ###Earline DODD CMP, 46713-9 #### [facility] ([id number]) [address], [address] [place], [place] [address]Fgbektirbxvd [Mass/Vol]206 mg/fBBzwi60-995DqyYvexhiEnnis Regional Medical CenterComment on above:Performed By: #### LUKE DODD, 16285-1 #### [facility] ([id number]) [address] [facility], [address] [place], [place] [address]DG TOMOSYNTHESIS SCREENING BIon 12-77-7291TgnPromedica Fostoria Community Hospital [address] [place] [address] Mammography Report Signed Patient: MARNIE ARANA MR#: [id number] : 1970 Acct:[id number] Age/Sex: 53 / F ADM Date: 06/02/24 Loc: MAMMO Attending Dr: Tiffanie Moreno Ordering Physician: Tiffanie Moreno Results: Date of Service: 06/02/24 Follow Up: Procedure(s): MM tomosynthesis screening BI Accession Number(s): [id number] cc: Tiffanie Moreno; Physician,Non-Staff M.DBill Patient Name: MARNIE ARANA MR#: [id number] : 1970 Exam Date: 06/02/2024 Ordering Doctor: JACQUES Moreno . RADIOLOGY REPORT PROCEDURE: MM TOMOSYNTHESIS SCREENING BI COMPARISON: MM TOMOSYNTHESIS SCREENING BI, 05/30/2023. MG MAMM SCREEN 3D GLORIA CAD, 01/06/2021. MG MAMM SCREEN GLORIA W CAD, 12/19/2019. MG MAMM SCREEN GOLRIA W CAD, 07/11/2013. INDICATIONS: screening for malignant neoplasm of breast Calculator Name NCI Breast Cancer Risk Assessment Tool 5 Year Breast Cancer Risk 1.60% Lifetime Breast Cancer Risk 11.20% Personal Breast Cancer No Personal Ovarian Cancer No Treatments None Family Cancers Mother with lymphoma cancer at age 50; Mother with meningioma cancer at age 60. LOCATION: [facility] BREAST COMPOSITION: There are scattered areas [...] BIOPSIED. Dictated by: Amari Crane M.D. on 06/03/2024 at 13:49 Approved by: Amari Crane M.D. on 06/03/2024 at 13:52 Dictated By: Amari Crane M.D. Signed By: 06/03/24 1354 DD/ 1352 TD/TT: Master Control Engineer:TBHRadiology, Radiologist, MD - 06/03/2024 [place] [address] Mammography Report Signed Patient: MARNIE ARANA MR#: [id number] : 1970 Acct:[id number] Age/Sex: 53 / F ADM Date: 06/02/24 Loc: MAMMO Attending Dr: Tiffanie Moreno Ordering Physician: Tiffanie Moreno Results: Date of Service: 06/02/24 Follow Up: Procedure(s): MM tomosynthesis screening BI Accession Number(s): [id number] cc: Tiffanie Moreno; Physician,Non-Staff Rebeca Patient Name: MARNIE ARANA MR#: [id number] : 1970 Exam Date: 06/02/2024 Ordering Doctor: [...] meningioma cancer at age 58. LOCATION: [facility] BREAST COMPOSITION: There are scattered areas [...] BIOPSIED. Dictated by: Amari Crane M.D. on 06/03/2024 at 13:49 Approved by: Amari Crane M.D. on 06/03/2024 at 13:52 Dictated By: Amari Crane M.D. Signed By: 06/03/24 1354 DD/ 51 TD/TT: Master Control Engineer: [facility] CenterRadiology Study observation (narrative)[facility] TOMOSYNTHESIS SCREENING BIOrdered By: Radiologist Radiology on 85-39-7545PZEB [employer] Work Phone: cNOVon [phone] Visit (RADTSA) MARNIE ARANA ([id number]) 1970 F Date Time Provider Department 05/16/24 [...] a 53-year-old woman diagnosed with Stage I, [id number] (AJCC)/Stage IIa ([place]) thymoma (Type AB) status [...] a 53-year-old woman diagnosed with Stage I, yV3aX5U0 (AJCC)/Stage IIa ([place]) thymoma (Type AB) status [...] which included preparing to see the patient, fjey-cf-uicc patient care, and counseling and educating the patient/family/caregiver. This document has been created with the use of voice recognition technology. It may contain inaccuracies, misspellings, inaccurate syntax or inappropriate word context that are a result of the inadequacies/shortcomings of said technology/so (more content not included)...NormalParkwood Hospital on 71-61-7707JYUNByvzvr Visit (NENMMN) MARNIE ARANA ([id number]) 1970 F Date Time Provider Department 04/29/24 1:00 PM QUINTEN JUNE During your visit today, we recorded the following information about you: Pulse Blood pressure Weight Height 86/minute 122/79 103.6 kg 1.6 m Quinten June MD 04/29/2024 1:58 PM Signed I saw Marnie Arana at the [facility] on 04/29/24 in follow up for [...] visit: Two 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 Will have another CT scan x 6 [...] Ca++ RV in ~ 5 months Quinten June MD [facility] [place] [facility] [address] [place] [address] I spent a total of 25 minutes on the date of the service which included preparing to see the patient, pszk-ul-nwuy patient care, completing clinical documentation, obtaining and/or [...] Double vision: 0=None Eyelid droop: 0=None Quinten June MD 04/29/2024 1:30 PM Addendum Our plan: - try stopping the mestinon - go down on the prednisone in the following fashion; - May 09: start 4 mg/day - (more content not included)...NormalGuernsey Memorial HospitalCNOVOffice Visit (THORMN) SUMITMARNIE Gill ([id number]) 1970 F Date Time Provider Department 04/29/24 11:00 AM KANDY VALLECILLO During your visit today, we recorded the following information about you: Temperature Pulse Respiration Blood pressure 97.6 degrees 80/minute 14/minute 162/78 Weight Height 103.6 kg 1.6 m Kandy Vallecillo APRN.TOE STRIPPER 04/29/2024 1:03 PM Signed Part of this note was copied from previous note, all content has been individually reviewed, updated as necessary, and thoroughly reviewed. [facility] - OUTPATIENT THORACIC SURGERY CLINIC NOTE PT NAME: [facility] [id number] THORACIC SURGEON: Jasiel Turner M.D. DATE OF [...] been determined by the performing laboratory within [facility] [place] ([facility], [facility], [facility], [facility], [facility], [facility], or [facility]) in a manner consistent with CLIA requirements. [...] vision, symptoms began 05/2023. 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 4. No thoracic lymphadenopathy. Master Control Engineer: JAIME Transcribe Date/Time: Apr 29 2024 11:10A Dictated by : AMADOU SHARPE MD This examination was interpreted and the report reviewed and electronically signed by: JAYSHREE IRIZARRY MD on Apr 29 2024 12:54PM EST [id number] Hospitals TriPoint Medical Center Chest W contrast Festus 15-12-2751FPBJTOSHKI: 1. Status post resection of anterior mediastinal mass with no evidence of recurrent/residual disease. 2. New evolving postradiation changes in the medial left upper lobe. 3. Stable 4 mm right upper lobe lung nodule. No new or enlarging pulmonary nodule. Continued attention on imaging surveillance is recommended. 4. No thoracic lymphadenopathy. Master Control Engineer: JAIME Transcribe Date/Time: Apr 29 2024 11:10A Dictated by : AMADOU SHARPE MD This examination was interpreted and the report reviewed and electronically signed by: JAYSHREE IRIZARRY MD on Apr 29 2024 12:54PM EST DIVISION OF RADIOLOGY* * *Final Report* * * DATE OF EXAM: Apr 29 2024 10:13AM [facility] 0539 - CT CHEST W IVCON / [...] Localizer images: No additional findings. DIVISION OF RADIOLOGYProvider, [facility] [place] - 04/29/2024 * * *Final Report* * * DATE OF EXAM: Apr 29 2024 10:13AM [facility] 0539 - CT CHEST W IVCON / [...] surveillance is recommended. 4. No thoracic lymphadenopathy. Master Control Engineer: [facility] Transcribe Date/Time: Apr 29 2024 11:10A Dictated by : AMADOU SHARPE MD This examination was interpreted and the report reviewed and electronically signed by: JAYSHREE IRIZARRY MD on Apr 29 2024 12:54PM EST [facility] HospitalRadiology Study observation (narrative)[facility] Chest W contrast IVOrdered By: Ccf Provider on 00-04-7776Tgscnhawp ClinicIGP,APTIMA HPV,AGE GDLNon 68-73-7418WIS GDLN ACOG TESTINGNote.NOMS HealthcareComment on above:TESTS RESULT FLAG UNITS REF RANGE LAB Clinician Provided Cytology Information Source.............Vagina No. of containers..01 ThinPrep Vial Age Algo ACOG Laisha... 30-65 01 FLAG LEGEND: L-Low Normal,H-High Normal,LL-Alert Low,HH-Alert High <-Panic Low,>-Panic High,A-Abnormal,AA-Critical Abnormal Performed at: 01 =[facility] [address] Sherri Nava MD, HPV APTIMANegativeNegativeNOMS HealthcareComment on above:This nucleic acid amplification test detects fourteen high- risk HPV types (16,18,31,33,35,39,45,51,52,56,58,59,66,68) without differentiation. Performed at: =[facility]co[address] [id number] Floor Coverings Installer: Sherri Nava MD, Phone: [phone] Performed at: [facility] Lab[address] [id number] Floor Coverings Installer: Sherri Nava MD, Phone: [phone] IGP, APTIMA HPV, RFX 16/18,45Note.NOMS HealthcareComment on above:TESTS RESULT FLAG UNITS REF RANGE LAB DIAGNOSIS: 02 NEGATIVE FOR INTRAEPITHELIAL LESION OR MALIGNANCY. Specimen adequacy: 02 Satisfactory for evaluation. No endocervical cells are present. This is consistent with a history of hysterectomy. Performed by: Malcolm Giles, Leg Assembler ([facility]) . 02 Note: Note 02 [...] High,A-Abnormal,AA-Critical Abnormal Performed at: 02 [facility] [address] [address] Sherri Nava MD, [facility] CLINISYNCNOMS [facility] 48-06-1751WIHMGyivli Visit (NETXMN) MARNIE ARANA ([id number]) 1970 F Date Time Provider Department 02/06/24 11:30 AM QUINTEN JUNETXLENA During your visit today, we recorded the following information about you: Pulse Blood pressure Weight Height 63/minute 141/76 101.5 kg 1.6 m Quinten June MD 02/08/2024 9:57 AM Signed I saw Marnie Ange Arana at the [facility] on 02/06/24 in follow up for thymomatous seropositive MG (ocular). HPI: Ms. 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 ROS: [...] vitamin D RV in 2-3 months Quinten June MD [facility] [place] [facility] [address] [place] [address] I spent a total of 30 minutes on the date of the service which included preparing to see the patient, mgmv-xu-lnna patient care, completing clinical documentation, obtaining and/or [...] but not daily Eyelid droop: 0=None Quinten June MD 02/06/2024 11:57 AM Signed Our plan: [...] by mouth every 6 (more content not included)...NormalPremier Health Atrium Medical CenterOVon 39-38-3131LQHGWinkqk Visit (RADTSA) MARNIE ARANA ([id number]) 1970 F Date Time Provider Department 01/03/24 [...] a 53-year-old woman diagnosed with Stage I, wU5zU2Y9 (AJCC)/Stage IIa ([place]) thymoma (Type AB) status [...] for Encounter Date Provider Department Center 01/03/2024 [id number]-YDEUOZEFERINO DESOUZA Encounter Status:Closed by ZEFERINO DESOUZA on 01/14/24NoAvita Health SystemLinda 19-14-1221OFZNMgzpesmas (VELASQUEZ) MARNIE ARANA ([id number]) 1970 F Date Time Provider Department 12/18/23 [...] Allergies) Date Reviewed: 11/28/2023 Reviewed by: Dilcia Price, AGATHA - Fully Assessed Reason for Visit: Patient [...] [G* Encounter Status:Closed by DILCIA PRICE on 12/18/23NoOhioHealth Grove City Methodist HospitalXR Chest PA and Lateralon 02-20-5755RTZJSBJVBK: No acute disease identified in the lungs or mediastinum. Master Control Engineer: JAIME Transcribe Date/Time: Oct 29 2023 4:22P Dictated by : YOANDY POMPA MD This examination was interpreted and the report reviewed and electronically signed by: YOANDY POMPA MD on Oct 29 2023 4:24PM [facility] DIVISION OF RADIOLOGY* * *Final Report* * * DATE OF [...] Bones and soft tissues: Unremarkable. DIVISION OF RADIOLOGYProvider, [facility] - 10/29/2023 * * *Final Report* * [...] disease identified in the lungs or mediastinum. Master Control Engineer: JAIME Transcribe Date/Time: Oct 29 2023 4:22P Dictated by : YOANDY POMPA MD This examination was interpreted and the report reviewed and electronically signed by: YOANDY POMPA MD on Oct 29 2023 4:24PM EST [facility] HospitalRadiology Study observation (narrative)[facility] Chest PA and LateralOrdered By: Ccf Provider on 47-95-8308Ozefwoqsu ClinicCT Chest W contrast Festus 79-92-2521MRPXEVVONZ: Resection of anterior mediastinal mass. Unchanged 3 [...] any questions regarding this interpretation, please call [phone]. If you are unable to reach us at the number above, please feel free to contact [facility] Administration[facility] at [phone].DIVISION OF RADIOLOGY* * *Final Report* * * DATE OF EXAM: Oct 16 2023 12:58PM [facility] 0539 - CT CHEST W IVCON / [...] characterized on prior MRI. Small hiatal hernia. Buffing Wheel Presser (topogram) images: Unremarkable. DIVISION OF RADIOLOGYProvider, [facility] [place] - 10/17/2023 * * *Final Report* * * DATE OF EXAM: Oct 16 2023 12:58PM [facility] 0539 - CT CHEST W IVCON / [...] characterized on prior MRI. Small hiatal hernia. Buffing Wheel Presser (topogram) images: Unremarkable. IMPRESSION IMPRESSION: Resection of [...] any questions regarding this interpretation, please call [phone]. If you are unable to reach us at the number above, please feel free to contact [facility] eRadiology at [phone]. [facility] Chest W contrast IVOrdered By: Ccf Provider on 10-17-2023 [facility] Chest W contrast Festus 60-15-4135Fammlnkxc Study observation (narrative)[facility] Chest PA and Lateralon 09-21-2023 [facility] HospitalXR Chest PA and Lateralon 83-15-3630Kpqimoafu ClinicALLIED HEALTHon 55-29-8301FJNTFC HEALTHHNO ID: [id number] Author: SHOBHA HUNTLEY RT(R) Service: Radiology Author [...] PATIENT PRESENTS WITH AN IMPLANTABLE OR ATTACHED PMO PROJECT MANAGER: No ALLERGIES: Reviewed and unchanged CONTRAST ALLERGY: NO. EXAM: MRI - CONTRAST TYPE: GROUP II PERIPHERAL IV DATA: Ambulatory: A peripheral IV was started in the Right with a Angio cath: 24 gauge. RADIOLOGY DEPARTMENT: MR; Exam(s) Completed: Body: Liver (routine) SIGNATURE: RT Jonathan(R), RT Angelica(R) PATIENT NAME: Marnie Arana DATE: August 28, 2023 TIME: 10:29 [facility] Liver WO and W contrast Festus 08-28-2023 [facility] HospitalI LIVER WO/W IVCONon 34-98-6473XDX LIVER WO/W IVCON* * *Final Report* * * DATE OF EXAM: Aug 28 2023 10:52AM [facility] 0727 - MRI LIVER WO/W [...] Four cavernous hepatic hemangiomas. No hepatic metastasis. Master Control Engineer: JAIME Transcribe Date/Time: Aug 28 2023 10:59A Dictated by : KUSUM DICK MD This examination was interpreted and the report reviewed and electronically signed by: KUSUM DICK MD on Aug 28 2023 11:22AM EST [id number] HospitalOutside Colonoscopyon 76-00-1848Lyjfbop [id number]#1.00CD:127[facility]-Rittman HospitalConsent for Procedure/Surgeryon 04-11-9729Vykjexg for Procedure/[id number]#1.00CD:127[facility]ittman HospitalProvider Letter [facility] 06-29-2663Eurjozud Letter [facility] – BRISTOWJujeanne 2020 Obduliojacob Monae DO [address] [place] [address] Re: MARNIE ARANA Date of : 1970 Thank you for your referral of Marnie Arana who was seen on consultation for screening colonoscopy. I have enclosed my consultation note for your review. I will be happy to follow Marnie. Sincerely, Odell Johnson MD General SurgeryNoLakeHealth Beachwood Medical CenterAmbulatory Clinical Summaryon [id number] Clinical Summary {[id number]}CD:[id number]-Rittman HospitalImmunization Recordson 26-37-6189Mtbmuioevkxu Records [id number]:127W[facility]sworth-Rittman HospitalPatient Educationon 93-66-6678Iympywy EducationColonoscopy A colonoscopy is an exam to evaluate [...] caregiver. Discomfort is usually minimal. You may begiven a drug to help you sleep (sedative [...] ? Medicines taken, including vitamins, herbs, eyedrops, pieo-akt-ivbgeld medicines, and creams. ? Use of steroids [...] medical facility. It is important for you tofollow up on all of your test results. [...] medicines have worn off. ? Only take zkxe-zqz-hsrvojk or prescription medicines for pain, discomfort, or fever as directed by your caregiver. Do not use aspirin or blood thinners if a biopsy was taken. Consult your caregiverfor medicine usage if biopsies were taken. SEEK [...] Document Reviewed: 02/04/2009 ExitCare? Patient Information ?2013 Secret.Wadsworth-Rittman HospitalMG MAMM SCREEN 3D GLORIA CADon [id number] MAMM SCREEN 3D GLORIA CADPatient: MARNIE ARANA Exam Date: 01/06/2021 : 1970 Gender:F Ordering : DR BHAVNA GOMEZ . Admission #: [id number] Family : Order #: [id number] CLICK HERE TO VIEW EXAM RADIOLOGY REPORT [...] meningioma cancer at age 58. LOCATION: [facility] BREAST COMPOSITION: Scattered areas fibroglandular density. [...] by: Amari Crane M.D. on 01/06/2021 at 15:04St. [facility] HospitalXR DEXA BONE DENSITYon [id number] DEXA BONE DENSITYEXAMINATION: XR DEXA BONE DENSITY HISTORY: Menopause present [...] Electronically authenticated by: AMARI CRANE Date: 2021-01-06 11:04[facility] HospitalPhysician Referralon 20-98-3723Jqwrrbjdf Referral [id number]:127NormalJulian [facility] ACOG PANEL 2: 30 to 65on 12-10-2020..NormalPromedica Fostoria Community Hospital Comment on above:Result Comment: Performed at: WBPerformed By: #### [id number] #### [facility] [address] [place] [address] Andrewrainer WaddellenAge Gdln ACOG Obvpzby71-40VjouvxXxaCleveland Clinic Avon HospitalComment on above:Performed By: #### [id number] #### [facility] [address] [place] [address] Andrew KarenDIAGNOSIS:CommentSt. Francis HospitalComment on above:Result Comment: NEGATIVE FOR INTRAEPITHELIAL LESION OR MALIGNANCY. CELLULAR CHANGES ASSOCIATED WITH ATROPHY ARE PRESENT. Performed at: WBPerformed By: #### [id number] #### [facility] [address] [place] [address] Andrew KarenHPV AptimaNegativeNormalNegativePromedica Fostoria Community HospitalComment on above:Result Comment: This nucleic acid amplification test detects fourteen high-risk HPV types (16,18,31,33,35,39,45,51,52,56,58,59,66,68) without differentiation. Performed at: =GPerformed By: #### [id number] #### [facility] [address] [place] [address] Andrew KarenMethodology:CommentSt. Francis HospitalComment on above: Result Comment: This liquid based ThinPrep(R) pap test was screened with the use of an image guided system. Performed at: WBPerformed By: #### [id number] #### [facility] [address] [place] [address] Andrew KarenNote:CommentSt. Francis HospitalComment on above:Result Comment: The Pap smear is a screening test designed to aid in the detection of premalignant and malignant conditions of the uterine cervix. It is not a diagnostic procedure and should not be used as the sole means of detecting cervical cancer. Both false-positive and false-negative reports do occur. . Performed at: WBPerformed By: #### [id number] #### [facility] [address] [place], [place] [address] Andrew LemonsPerformed by:CommentSt. Francis HospitalCombeaumont hospital on above: Result Comment: Namita Newby Leg Assembler (ASCP) Performed at: WBPerformed By: #### [id number] #### [facility] [address] [place], [place] [address] Andrew KarenSpecimen adequacy:CommentSt. Francis HospitalCombeaumont hospital on above:Result Comment: Satisfactory for evaluation. Performed at: WBPerformed By: #### [id number] #### [facility] [address] [place], [place] [address] Andrew Lemons Vital Signs Date TimeVital SignValuePerforming BlndrxqguQowvkqvj51-24-2959 09:11-0400Body mass index (BMI) [Ratio]38.02 kg/m2Tiffanie HANNA Work Phone: [facility] CenterJdsgsfwtrj46-27-5106 09:11-0400Body .47 kgTiffanie HANNA Work Phone: [place] [address]Wsiipobarn91-57-6302 09:11-0400Diastolic blood mm[Hg]Tiffanie HANNA Work Phone: [facility] CenterAwtymxtnnt63-96-0506 09:11-0400Systolic blood vnwwqyhm499 mm[Hg]Tiffanie HANNA Work Phone: [facility] CenterWfquceiauj23-69-8412 08:35-0400Body pogjgg961.6 cmAnthony Rusher DPM Work Phone: [facility] CenterJqzttofhvy30-48-5447 08:35-0400Body mass index (BMI) [Ratio]39.99 kg/g0Pfiteso Rusher DPM Work Phone: [facility] CenterYrakfsmjga05-55-5846 08:35-0400Body xksivc394.69 kgAnthony Rusher DPM Work Phone: [facility] CenterHnbqmuleiz11-75-4202 14:51-0400Body mass index (BMI) [Ratio]40.32 kg/o9VcvszsCristian CHATMANTOE STRIPPER Work Phone: [facility] [employer] Lpyxag61-03-1803 14:51-0400Body mlcqim946.61 kgCristian Teixeira 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-TOE STRIPPER Work Phone: [facility]08-06-2025 14:51-0400Diastolic blood mm[Hg]Cristian Teixeira 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-TOE STRIPPER Work Phone: [facility]08-06-2025 14:51-0400Heart rate 74 /minCristian Teixeira 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-TOE STRIPPER Work Phone: [facility] [employer] Lfuoxq43-21-8754 14:51-0400 Respiratory rate18 /minCristian Teixeira 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-TOE STRIPPER Work Phone: [facility]08-06-2025 14:51-0192OyI5% (BldA) [Mass fraction]98 %Cristian Teixeira 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-TOE STRIPPER Work Phone: [facility]08-06-2025 14:51-0400Systolic blood xrffhesm882 mm[Hg]Cristian Teixeira 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-TOE STRIPPER Work Phone: [facility]03-11-2025 14:51-0400Body .8 cmKendra Teixeira 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-TOE STRIPPER Work Phone: [facility] [employer] Xfsshr82-68-0940 14:51-0400Body mass index (BMI) [Ratio]41.4 kg/x0LvxlagCristian Teixeira 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-TOE STRIPPER Work Phone: [phone]-[facility] [employer] Bjdljs10-17-8889 14:51-0400Body nleipg974.33 kgCristian Teixeira 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-TOE STRIPPER Work Phone: [facility]03-11-2025 14:51-0400Diastolic blood yirntxje78 mm[Hg]Cristian Teixeira 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-TOE STRIPPER Work Phone: [facility]03-11-2025 14:51-0400Heart rate 75 /minCristian Teixeira 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-TOE STRIPPER Work Phone: [facility]03-11-2025 14:51-0400 Respiratory rate16 /minCristian Teixeira 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-TOE STRIPPER Work Phone: [facility]03-11-2025 14:51-8977BrF0% (BldA) [Mass fraction]98 %Cristian Teixeira 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-TOE STRIPPER Work Phone: [facility]03-11-2025 14:51-0400Systolic blood povrmkjd394 mm[Hg]Cristian Teixeira APRN-TOE STRIPPER Work Phone: [facility]01-08-2025 15:16-0500Body mass index (BMI) [Ratio]39.99 kg/w9Noqafwwyqts Filiberto DO Work Phone: [facility] CenterFgvfmmuxyv68-06-3890 15:16-0500Body .69 kgChristopher Filiberto DO Work Phone: [facility] CenterKntwnbgvko63-40-9648 15:16-0500Diastolic blood napfthdq254 mm[Hg]Sánchezer Filiberto DO Work Phone: [facility] CenterZlhmphhrfz28-22-8129 15:16-0500Heart rate73 /min Christzhanna De Los Santos DO Work Phone: [facility] CenterPphuilrxfv51-45-5658 15:16-2788CkD7% (BldA) [Mass fraction]96 %Christterreller Filiberto DO Work Phone: [facility] CenterIdlllpivsa13-31-4441 15:16-0500Systolic blood lrtzpiby708 mm[Hg]Dharmeshopher Filiberto DO Work Phone: [facility] CenterYbuzxeayab26-43-2255 08:18-0500Body mass index (BMI) [Ratio]38.77 kg/e4MyftvuCristian Teixeira 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-TOE STRIPPER Work Phone: [facility]11-12-2024 08:18-0500Body .69 kgCristian Smither 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-TOE STRIPPER Work Phone: [facility]11-12-2024 08:18-0500Diastolic blood bqdoiqwi91 mm[Hg]Cristian Teixeira 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-TOE STRIPPER Work Phone: [facility]11-12-2024 08:18-0500Heart rate 81 /minCristian Crespochter 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-TOE STRIPPER Work Phone: [facility]11-12-2024 08:18-0500 Respiratory rate16 /minCristian Crespochter 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-TOE STRIPPER Work Phone: [facility]11-12-2024 08:18-2311UlU7% (BldA) [Mass fraction]98 %Cristian Smither 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-TOE STRIPPER Work Phone: [facility]11-12-2024 08:18-0500Systolic blood clwhzoiq359 mm[Hg]Cristian Teixeira 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-TOE STRIPPER Work Phone: [facility]11-08-2024 10:55-0500Body mass index (BMI) [Ratio]41.04 kg/m2Zeferino Desouza MD Work Phone: [facility]11-08-2024 10:55-0500Body temperature 97.39 [degF]Zeferino Desouza MD Work Phone: [facility]11-08-2024 10:55-0500Body roxycj198.1 kgZeferino Desouza MD Work Phone: [place] [address]-08-2024 10:55-0500Diastolic blood bvnrymjd59 mm[Hg]Zeferino Desouza MD Work Phone: [facility]11-08-2024 10:55-0500Heart rate63 /min Zeferino Desouza MD Work Phone: [facility]11-08-2024 10:55-0500Respiratory rate 16 /minSfreda Desouza MD Work Phone: [facility]11-08-2024 10:55-3096EcD6% (BldA) [Mass fraction]96 %Zeferino Desouza MD Work Phone: [facility]11-08-2024 10:55-0500Systolic blood mm[Hg]Zeferino Desouza MD Work Phone: [facility]10-22-2024 12:45-0400Body cm Quinten June MD Work Phone: [facility]10-22-2024 12:45-0400Body mass index (BMI) [Ratio]40.46 kg/m8EiowdaahQuinten June MD Work Phone: [phone]10-22-2024 12:45-0400Body fqeuqa353.6 kgQuinten June MD Work Phone: [phone]10-22-2024 12:45-0400Diastolic blood gmjhstce86 mm[Hg]Quinten June MD Work Phone: [phone]10-22-2024 12:45-0400Heart rate86 /min Quinten June MD Work Phone: [phone]10-22-2024 12:45-2710QfG8% (BldA) [Mass fraction]97 %Quinten June MD Work Phone: [phone]10-22-2024 12:45-0400Systolic blood ahztwxnn720 mm[Hg]Quinten June MD Work Phone: [phone]10-22-2024 10:57-0400Body cm Kandy Vallecillo APRN.TOE STRIPPER Work Phone: [phone] Valley HospitalVlwrlu88-08-3812 10:57-0400Body mass index (BMI) [Ratio]40.46 kg/u5JkkubKandy Vallecillo APRN.TOE STRIPPER Work Phone: [facility] HospitalVtxbvj19-71-4819 10:57-0400Body temperature 97.59 [degF]Kandy Wegas 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.TOE STRIPPER Work Phone: [phone] Hvxduc26-48-0811 10:57-0400Body idyatx308.6 kgCaraliya Vallecillo 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.TOE STRIPPER Work Phone: [place] Fxubdo91-62-6281 10:57-0400Diastolic blood ephskygi82 mm[Hg]Kandy Vallecillo 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.TOE STRIPPER Work Phone: [place] Rgofqe84-11-3463 10:57-0400Heart rate80 /min Kandy Vallecillo 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.TOE STRIPPER Work Phone: [place] Chlgml74-37-6736 10:57-0400Respiratory rate 14 /minCaraliya Vallecillo 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.TOE STRIPPER Work Phone: [place] Uvhuxd16-83-9170 10:57-7567CzK4% (BldA) [Mass fraction]98 %Kandy Vallecillo 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.TOE STRIPPER Work Phone: [place] Jmckri61-15-5582 10:57-0400Systolic blood mgmslrqy913 mm[Hg]Kandy Candidobakari 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.TOE STRIPPER Work Phone: [place] Drglse00-99-6249 09:32-0400Body berzpz249.6 Marie HANNA Work Phone: [facility] CenterHoqhmrwmnn31-28-7608 09:32-0400Body mass index (BMI) [Ratio]39.48 kg/m2Tiffanie HANNA Work Phone: [facility] CenterGsqypzdsnq33-55-7298 09:32-0400Body epscdl733.33 kgTiffanie HANNA Work Phone: noCox BransonXprfuvtbmh55-72-5837 09:32-0400Diastolic blood ceogxvlx40 mm[Hg]Tiffanie HANNA Work Phone: NOCox BransonOfkeqbiinm38-42-2421 09:32-0400Systolic blood iryrerny070 mm[Hg]Tiffanie HANNA Work Phone: [facility] CenterOzuodtwded48-63-7488 15:46-0400Body mass index (BMI) [Ratio]37.94 kg/p9JmfcimCristian Crespochter 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-TOE STRIPPER Work Phone: [facility]08-26-2024 15:46-0400Body dfcmib210.42 kgCristian Smither 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-TOE STRIPPER Work Phone: [facility]08-26-2024 15:46-0400Diastolic blood jtaezdfe06 mm[Hg]Cristian Teixeira 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-TOE STRIPPER Work Phone: [facility]08-26-2024 15:46-0400Heart rate 78 /minKena Renelachter 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-TOE STRIPPER Work Phone: [facility]08-26-2024 15:46-0400 Respiratory rate18 /minCristian Lópezlachter 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-TOE STRIPPER Work Phone: [facility]08-26-2024 15:46-6797AdT4% (BldA) [Mass fraction]97 %Cristian Teixeira 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-TOE STRIPPER Work Phone: [facility]08-26-2024 15:46-0400Systolic blood wepbzurw660 mm[Hg]Cristian Teixeira 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-TOE STRIPPER Work Phone: [facility]07-31-2024 11:25-0400Body pjadvo192 cmQuinten June MD Work Phone: [facility]07-31-2024 11:25-0400Body mass index (BMI) [Ratio]39.64 kg/l2OldnxdhfQuinten June MD Work Phone: [facility]07-31-2024 11:25-0400Body upwnzl137.52 kgQuinten June MD Work Phone: [facility]07-31-2024 11:25-0400Diastolic blood atcrtsya03 mm[Hg]Quinten June MD Work Phone: [facility]07-31-2024 11:25-0400Heart rate63 /min Quinten June MD Work Phone: [facility]07-31-2024 11:25-5285HpF9% (BldA) [Mass fraction]96 %Quinten June MD Work Phone: [facility]07-31-2024 11:25-0400Systolic blood umdgwxla152 mm[Hg]Quinten June MD Work Phone: [facility]06-27-2024 13:41-0400Body mass index (BMI) [Ratio]40.89 kg/m2Zeferino Desouza MD Work Phone: [facility]06-27-2024 13:41-0400Body temperature 97.59 [degF]Zeferino Desouza MD Work Phone: [facility]06-27-2024 13:41-0400Body gixkez089.7 kgZeferino Desouza MD Work Phone: [facility]06-27-2024 13:41-0400Diastolic blood mm[Hg]Zeferino Desouza MD Work Phone: [facility]06-27-2024 13:41-0400Heart rate74 /min Zeferino Desouza MD Work Phone: [facility]06-27-2024 13:41-0400Respiratory rate 18 /minSfreda Desouza MD Work Phone: [facility]06-27-2024 13:41-2052GwM2% (BldA) [Mass fraction]96 %Zeferino Desouza MD Work Phone: [facility]06-27-2024 13:41-0400Systolic blood lycpqosi891 mm[Hg]Zeferino Desouza MD Work Phone: [facility]05-22-2024 14:44-0400Body mass index (BMI) [Ratio]40.77 kg/m2Zeferino Desouza MD Work Phone: [facility]05-22-2024 14:44-0400Body temperature 96.69 [degF]Zeferino Desouza MD Work Phone: [facility]05-22-2024 14:44-0400Body yfowxy856.4 kgZeferino Desouza MD Work Phone: [facility]05-22-2024 14:44-0400Diastolic blood rpytzgre28 mm[Hg]Zeferino Desouza MD Work Phone: [facility]05-22-2024 14:44-0400Heart rate64 /min Zeferino Desouza MD Work Phone: [facility]05-22-2024 14:44-0400Respiratory rate 18 /minSfreda Desouza MD Work Phone: [facility]05-22-2024 14:44-8933JpS4% (BldA) [Mass fraction]98 %Zeferino Desouza MD Work Phone: [facility]05-22-2024 14:44-0400Systolic blood notymkek697 mm[Hg]Zeferino Desouza MD Work Phone: [facility]05-15-2024 14:51-0400Body mass index (BMI) [Ratio]40.42 kg/m2Zeferino Desouza MD Work Phone: [facility]05-15-2024 14:51-0400Body temperature 97.2 [degF]Zeferino Desouza MD Work Phone: [facility]05-15-2024 14:51-0400Body afqrfe204.5 kgZeferino Desouza MD Work Phone: [place] [address]-15-2024 14:51-0400Diastolic blood zybtculu46 mm[Hg]Zeferino Desouza MD Work Phone: [facility]05-15-2024 14:51-0400Heart rate65 /min Zeferino Desouza MD Work Phone: [place] [address]-15-2024 14:51-0400Respiratory rate 16 /minSfreda Desouza MD Work Phone: [phone])626-[address] [place], [place] 6153505-15-2024 14:51-3285FnX3% (BldA) [Mass fraction]97 %Zeferino Desouza MD Work Phone: [phone]05-15-2024 14:51-0400Systolic blood omtacwxn600 mm[Hg]Zeferino Desouza MD Work Phone: [phone])[facility] [place], [place] 6153505-08-2024 14:31-0400Body mass index (BMI) [Ratio]40.07 kg/m2Zeferino Desouza MD Work Phone: 1(212)688-[address] [place], [place] 6153505-08-2024 14:31-0400Body temperature 97 [degF]Zeferino Desouza MD Work Phone: [phone] [place], [place] 7666505-08-2024 14:31-0400Body viefhm883.6 kgZeferino Desouza MD Work Phone: [phone] [place], [place] 5314005-08-2024 14:31-0400Diastolic blood ufamrdev69 mm[Hg]Zeferino Desouza MD Work Phone: 1(965)171-[address] [place], [place] 6153505-08-2024 14:31-0400Heart rate69 /min Zeferino Desouza MD Work Phone: 1(495)149-[address] [place], [place] 6153505-08-2024 14:31-0400Respiratory rate 16 /minSfreda Desouza MD Work Phone: 1(988)004-[address] [place], [place] 6153505-08-2024 14:31-8368ThL1% (BldA) [Mass fraction]95 %Zeferino Desouza MD Work Phone: [phone]05-08-2024 14:31-0400Systolic blood ismtikuf586 mm[Hg]Zeferino Desouza MD Work Phone: [phone]05-01-2024 14:54-0400Body mass index (BMI) [Ratio]40.07 kg/m2Zeferino Desouza MD Work Phone: [phone])328-[address] [place], [place] 6153505-01-2024 14:54-0400Body temperature 97 [degF]Zeferino Desouza MD Work Phone: [facility]05-01-2024 14:54-0400Body xceann250.6 kgZeferino Desouza MD Work Phone: [facility]05-01-2024 14:54-0400Diastolic blood tlvynamw57 mm[Hg]Zeferino Desouza MD Work Phone: [facility]05-01-2024 14:54-0400Heart rate66 /min Zeferino Desouza MD Work Phone: [facility]05-01-2024 14:54-0400Respiratory rate 16 /minSfreda Desouza MD Work Phone: [facility]05-01-2024 14:54-2350IfA0% (BldA) [Mass fraction]98 %Zeferino Desouza MD Work Phone: [facility]05-01-2024 14:54-0400Systolic blood apshdisn219 mm[Hg]Zeferino Desouza MD Work Phone: [facility]04-24-2024 14:54-0400Body mass index (BMI) [Ratio]39.56 kg/m2Zeferino Desouza MD Work Phone: [facility]04-24-2024 14:54-0400Body temperature 96.91 [degF]Zeferino Desouza MD Work Phone: [facility]04-24-2024 14:54-0400Body .3 kgZeferino Desouza MD Work Phone: [place] [address]-24-2024 14:54-0400Diastolic blood lundguul02 mm[Hg]Zeferino Desouza MD Work Phone: [place] [address]-24-2024 14:54-0400Heart rate65 /min Zeferino Desouza MD Work Phone: [place] [address]-24-2024 14:54-0400Respiratory rate 16 /minSfreda Desouza MD Work Phone: [place] [address]-24-2024 14:54-4097ZrX5% (BldA) [Mass fraction]97 %Zeferino Desouza MD Work Phone: [place] [address]-24-2024 14:54-0400Systolic blood shlodgnq068 mm[Hg]Zeferino Desouza MD Work Phone: [place] [address]-22-2024 16:08-0400Body owlevn619 cm David Trinh MD Work Phone: [phone] [address]-22-2024 16:08-0400Body mass index (BMI) [Ratio]39.15 kg/m2David Trinh MD Work Phone: [phone] [address]-22-2024 16:08-0400Body .25 kgDavid Trinh MD Work Phone: [place] [address]-22-2024 16:08-0400Diastolic blood canpwdzc94 mm[Hg]David Trinh MD Work Phone: [place] [address]-22-2024 16:08-0400Heart rate78 /min David Trinh MD Work Phone: [place] [address]-22-2024 16:08-1515DdY6% (BldA) [Mass fraction]94 %David Trinh MD Work Phone: [place] [address]-22-2024 16:08-0400Systolic blood ijhdyhpe241 mm[Hg]David Trinh MD Work Phone: [place] [address]-22-2024 13:57-0400Body mass index (BMI) [Ratio]38.84 kg/n0QmnpdKandy Vallecillo APRN.TOE STRIPPER Work Phone: [place] Olcwli02-59-7432 13:57-0400Body temperature 98.01 [degF]Kandy Vallecillo 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.TOE STRIPPER Work Phone: [place] Buwacb40-56-7408 13:57-0400Body .25 kgCaraliya Vallecillo 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.TOE STRIPPER Work Phone: [place] [address]Ivsybu79-78-6592 13:57-0400Diastolic blood eabitmhh01 mm[Hg]Kandy Vallecillo 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.TOE STRIPPER Work Phone: [place] [address]-22-2024 13:57-0400Heart rate93 /min Kandy Vallecillo 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.TOE STRIPPER Work Phone: [phone] [place] [address]-22-2024 13:57-0400Respiratory rate 16 /minCarol Ruth Ann 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.TOE STRIPPER Work Phone: [phone] [address]-22-2024 13:57-9936SdR2% (BldA) [Mass fraction]95 %Kandy Vallecillo 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.TOE STRIPPER Work Phone: [phone] [place] [address]-22-2024 13:57-0400Systolic blood erzzthcr161 mm[Hg]Kandy Vallecillo 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.TOE STRIPPER Work Phone: [place] [address]-04-2024 12:57-0400Body kttkoa069.7 cmSfreda Desouza MD Work Phone: [place] [address]-04-2024 12:57-0400Body temperature 97.81 [degF]Zeferino Desouza MD Work Phone: [place] [address]-04-2024 12:57-0400Body wetedk32.6 kgZeferino Desouza MD Work Phone: [place] [address]-04-2024 12:57-0400Diastolic blood pnjbyswk50 mm[Hg]Zeferino Desouza MD Work Phone: [place] [address]-04-2024 12:57-0400Heart rate87 /min Zeferino Desouza MD Work Phone: [place] [address]-04-2024 12:57-0400Respiratory rate 18 /minSfreda Desouza MD Work Phone: [place] [address]-04-2024 12:57-4460DyV3% (BldA) [Mass fraction]99 %Zeferino Desouza MD Work Phone: [place] [address]-04-2024 12:57-0400Systolic blood oxuuinhl878 mm[Hg]Zeferino Desouza MD Work Phone: [facility]03-15-2024 14:51-0400Body jebrpa398 cm Kandy Laryralph 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.TOE STRIPPER Work Phone: [place] Qfnusr49-01-1836 14:51-0400Body temperature 98.01 [degF]Kandy Ruth Ann 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.TOE STRIPPER Work Phone: [place] Zuepaa36-95-8387 14:51-0400Body .94 kgCarol Ruth Ann 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.TOE STRIPPER Work Phone: [place] Hbgwga17-90-6059 14:51-0400Diastolic blood tygycbsx68 mm[Hg]Kandy Ruth Ann 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.TOE STRIPPER Work Phone: [place] [id number] 14:51-0400Heart rate67 /min Kandy Laryralph 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.TOE STRIPPER Work Phone: [place] [id number] 14:51-6606BtL7% (BldA) [Mass fraction]97 %Kandy Ruth Ann 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.TOE STRIPPER Work Phone: [place] [id number] 14:51-0400Systolic blood ewojdgwx643 mm[Hg]Kandy Vallecillo 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.TOE STRIPPER Work Phone: [place] [id number] 13:43-0500Body hnsnat870 cm Jasiel Turner MD Work Phone: [place] [id number] 13:43-0500Body temperature 98.49 [degF]Jasiel Turner MD Work Phone: [place] [phone] 13:43-0500Body .71 kgJasiel Turner MD Work Phone: [place] [id number] 13:43-0500Diastolic blood uhuohenj76 mm[Hg]Jasiel Turner MD Work Phone: [place] [id number] 13:43-0500Heart rate77 /min Jasiel Turner MD Work Phone: [place] [id number] 13:43-0500Respiratory rate 14 /minSmark Turner MD Work Phone: [place] Gogzov81-81-0763 13:43-1218SwE4% (BldA) [Mass fraction]96 %Jasiel Turner MD Work Phone: [facility] Xtsglx71-80-3191 13:43-0500Systolic blood jsmkibuo729 mm[Hg]Jasiel Turner MD Work Phone: [facility] Raeiow74-19-0576 14:54-0500Body .1 cmKena Schlachter 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-TOE STRIPPER Work Phone: [facility]02-28-2024 14:54-0500Body mass index (BMI) [Ratio]35.78 kg/t2Pnbdat Schlachter 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-TOE STRIPPER Work Phone: [phone]02-28-2024 14:54-0500Body .52 kgKena Schlachter 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-TOE STRIPPER Work Phone: [facility]02-28-2024 14:54-0500Diastolic blood pgialgji21 mm[Hg]Cristian Lópezlachter 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-TOE STRIPPER Work Phone: [facility]02-28-2024 14:54-0500Heart rate 64 /minKena Schlachter 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-TOE STRIPPER Work Phone: [facility]02-28-2024 14:54-0500 Respiratory rate18 /minKendra Schlachter 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-TOE STRIPPER Work Phone: [facility]02-28-2024 14:54-6447SfA5% (BldA) [Mass fraction]97 %Cristian Schlachter 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-TOE STRIPPER Work Phone: [facility]02-28-2024 14:54-0500Systolic blood mm[Hg]Cristian Teixeira 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-TOE STRIPPER Work Phone: [facility] Encounters Encounter DateEncounter TypeCare ProviderFacilityStart: 04-20-2025 End: 93-65-6222Raobfk shawSylvain HANNA Work Phone: no [facility] OBGYNStart: 04-20-2025 End: 58-63-7675Zdnago flowsheetTiffanie HANNA Work Phone: NO [place] OBGYNStart: 04-20-2025 End: 15-26-4458Duyormzhw Result EncounterTiffanie HANNA Work Phone: [facility] External Department UnsolicitedStart: 04-20-2025 End: 29-12-5287Batvupo encounter procedureTiffanie HANNA Work Phone: noms HealthcareStart: 04-20-2025 End: 59-33-1400Nqphiezr preventive med est patient 40-64yrsAmy Tiffanie HANNA Work Phone: no [place] OBGYNComment on above:Well woman exam with routine gynecological exam; Encounter for screening mammogram for malignant neoplasm of breast; Postmenopausal stateStart: 04-20-2025 End: 71-49-1393axxyrgtyyaTQY RAMEYNot AvailableStart: 02-25-2025 End: 67-19-8510Wnakoy flowsheetAnthony S Rusher DPM Work Phone: noKS [facility]ermyn PodiatryStart: 02-25-2025 End: 66-85-6627Sccrxp flowsheetAnthony S Rusher DPM Work Phone: noKS Jermyn PodiatryStart: 02-25-2025 End: 47-97-2493Acdkvz outpatient new 45 minutesAnthony S Rusher DPM Work Phone: noKS Jermyn PodiatryComment on above:Posterior tibial tendinitis of right lower extremity (Primary Dx); Valgus deformity, not elsewhere classified, right ankle; Equinus contracture of right ankle; Right foot pain; Difficulty walking; Instability of right ankle jointStart: 02-25-2025 End: 23-22-4742mmnwfhndpcJXVMHPI Ralph Wilfredo AvailableStart: 02-11-2025 End: 10-31-3375Hsymtd outpatient visit 15 minutesCristian RIZZO Work Phone: [facility] Physicians Family MedicineComment on above: Acute right ankle pain (Primary Dx); Myasthenia gravis ([facility])Start: 02-11-2025 End: 94-70-5995tbtqzrzzdoOMPUDISt. [facility] Start: 11-26-2024 End: 64-95-5993ijgtgbcowqXRMVT WEGASFacility:[facility] Centertart: 11-26-2024 End: 21-45-8544khjmyjomoxWARZA [facility] HOSPITALFacility:[facility] Centertart: 10-10-2024 End: 02-69-6780pjfpsvratyBALDBJUC Health HospitalStart: 73-98-2178Jayvdqkft for general adult medical examination without abnormal findingsUC SAN DIEGO MED[facility], HILLCRESTOhioHealth Mansfield Hospitaltart: 10-06-2024 End: 61-43-0834xzurfjdfjhVcxrohmf Claytor MD Work Phone: NeurologyComment on above:Dental questionStart: 09-16-2024 End: 97-72-2740Fpmplra encounter statusCristian Teixeira APRN-TOE STRIPPER Work Phone: [facility] Work Phone: Start: 09-16-2024 End: 74-47-5225Lxyquohr preventive med est patient 40-64yrsKpratik Teixeira APRN-TOE STRIPPER Work Phone: [facility] Physicians Family MedicineComment on above: Wellness examination (Primary Dx); [place]is [place] ThymomaStart: 09-16-2024 End: 94-49-3049xfexpowcdkHXSRXXSt. [facility] Start: 51-86-2836Buynksqiu for general adult medical examination without abnormal findingsRobert Wood Johnson [facility] Ambulatory PPGStart: 08-27-2024 End: 65-13-6388gtixrkcoqzFlqwf Wegas APRN.CNP Work Phone: oracic ClinicStart: 08-27-2024 End: 89-23-0208Cmhfhbm encounter procedureCaraliya Vallecillo APRN.TOE STRIPPER Work Phone: oracic ClinicComment on above:October 20 scan & appointmentStart: 07-16-2024 End: 62-55-0563Wgesou outpatient visit 25 minutesChristopher Filiberto DO Work Phone: aNA BELLEVUEComment on above:Myasthenia gravis (CMS/HCC) (Primary Dx); ThymomaStart: 07-16-2024 End: 51-63-2932uaqkcmwjbgIXSXLBFXLOL HASSETTNot AvailableStart: 07-16-2024 End: 57-03-1691Jgtcnm flowsheetChristopher Filiberto DO Work Phone: ana BELLEVUEStart: 07-16-2024 End: 61-14-5410Mgvqny flowsheetChristopher Filiberto DO Work Phone: ana BELLEVUEStart: 06-03-2024 End: 06-29-5839Zffnixjwr Result EncounterTiffanie HANNA Work Phone: noms External Department UnsolicitedStart: 06-03-2024 End: 65-04-9288Iwqdfswgp Result EncounterTiffanie HANNA Work Phone: NOKR External Department UnsolicitedStart: 05-20-2024 End: 02-13-8886Fxevtp outpatient visit 15 minutesBradley Hospitaldra Lluvia PARK-TOE STRIPPER Work Phone: [facility] Physicians Family MedicineComment on above: Myasthenia gravis (CMS-HCC) (Primary Dx); Thymoma; Acute non-recurrent maxillary sinusitisStart: 05-20-2024 End: 74-59-0158dfkaqfxfyaEccloopf Claytor MD Work Phone: NeurologyComment on above:MedicationsStart: 05-16-2024 End: 30-04-3638ldfjumdqwhJNPX RAJANFacility:[facility] Centertart: 05-16-2024 End: 29-08-7259Gtdmntz encounter procedureSfreda Desouza MD Work Phone: Radiation OncologyComment on above:Thymoma (Primary Dx)Start: 04-29-2024 End: 29-70-3248Vyfzzbc encounter procedureCaraliya Vallecillo APRN.CNP Work Phone: Thoracic ClinicComment on above:Malignant neoplasm of thymus (HCC) (Primary Dx); ThymomaMyasthenia gravis (HCC) (Primary Dx)Start: 04-29-2024 End: 01-64-8941zinbvslrclUKHIXYCR CLAYTORFacility:[facility] Start: 04-29-2024 End: 37-12-3436Wdydqyjrtt hospital visit by physicianCt 2 Main Qb (I-Stat) RadiologyComment on above:Malignant neoplasm of thymus (HCC) [C37]Start: 04-14-2024 End: 58-02-7543Ttdnbm flowsheetTiffanie HANNA Work Phone: noms BCP OBStart: 04-14-2024 End: 61-83-8352Badlco flowsheetTiffanie HANNA Work Phone: noms BCP OBStart: 04-14-2024 End: 87-04-6556Rsojhnwer Result EncounterTiffanie HANNA Work Phone: NOM[facility] External Department UnsolicitedStart: 04-14-2024 End: 72-38-3761Ngahssg encounter procedureTiffanie HANNA Work Phone: no[facility] Work Phone: Start: 04-14-2024 End: 55-78-6075Ofgpqubq preventive med est patient 40-64yrsAmy Tiffanie HANNA Work Phone: noms BCP OBComment on above:Well woman exam with routine gynecological exam; Breast cancer screening by mammogram; Postmenopausal stateStart: 03-03-2024 End: 54-22-1071Onfzkp outpatient visit 15 minutesCristian Teixeira 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-TOE STRIPPER Work Phone: [facility] Physicians Family MedicineComment on above: Myasthenia gravis ([facility]) (Primary Dx); ThymomaStart: 03-03-2024 End: 75-62-4855ozsbofvpfuSJOAOGHeart Center of [facility] Start: 02-06-2024 End: 64-43-1635luvzngfuwnHKRRQJBZ CLAYTORFacility:[facility] Start: 02-06-2024 End: 72-41-2184Xuojsto encounter procedureQuinten June MD Work Phone: NeurologyComment on above:Myasthenia gravis (HCC) (Primary Dx)Start: 01-03-2024 End: 08-03-0995yjtulggzuxXJRN RAJANFacility:[facility] Centertart: 01-03-2024 End: 60-33-3356Hafhlet encounter procedureSfreda Desouza MD Work Phone: Radiation OncologyComment on above:Thymoma (Primary Dx)Start: 93-50-9927Ybuwxvwzm encounterDilcia Price RNRadiation OncologyComment on above:Patient Update (Post Radiation Nurse Call )Start: 12-87-6276Kkkquds encounter procedureSfreda Desouza MD Work Phone: Radiation OncologyStart: 69-17-4621Ofdajreqv Oncology NoteSfreda Desouza MD Work Phone: Radiation OncologyComment on above:Completion Note Start: 81-55-2637KafgneRpunz Ruth Ann 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.TOE STRIPPER Work Phone: Thoracic ClinicStart: 11-28-2023 End: 54-56-0141Mjasvdy encounter procedureSfreda Desouza MD Work Phone: Radiation OncologyComment on above:Thymoma (Primary Dx)Start: 11-21-2023 End: 10-70-3042Qvbbweu encounter procedureSfreda Desouza MD Work Phone: Radiation OncologyComment on above:Thymoma (Primary Dx)Start: 11-14-2023 End: 43-53-4325Ludzlzj encounter procedureSfreda Desouza MD Work Phone: Radiation OncologyComment on above:Thymoma (Primary Dx)Start: 11-07-2023 End: 67-27-5878Nijazev encounter procedureSfreda Desouza MD Work Phone: Radiation OncologyComment on above:Thymoma (Primary Dx)Start: 10-31-2023 End: 00-49-9091Itojvda encounter procedureSfreda Desouza MD Work Phone: Radiation OncologyComment on above:Thymoma (Primary Dx)Start: 10-29-2023 End: 86-70-8531Bbczosy encounter procedureCarol Ruth Ann AMINTOE STRIPPER Work Phone: Thoracic ClinicComment on above:Malignant neoplasm of thymus (HCC) (Primary Dx); Myasthenia gravis (HCC)Myasthenia gravis (HCC) (Primary Dx)Start: 10-29-2023 End: 16-74-1807Lettvfbiag hospital visit by physicianXr Chest Main J1 Work Phone: RadiologyComment on above:Myasthenia gravis (HCC) [G70.00]Start: 02-44-7778Qtfnlvh encounter procedureCcf ProviderGeorgetown Behavioral Hospital DepartmentStart: 10-16-2023 End: 36-10-4831Rhekedpica hospital visit by physicianArrival Time Radiology Work Phone: Radiology Pet CTComment on above:Malignant neoplasm of thymus (HCC) [C37]Start: 10-12-2023 End: 98-57-9614Amwrhzajlg hospital visit by physicianSfreda Desouza MD Work Phone: Radiology Pet CTStart: 10-12-2023 End: 64-43-6000Ycghnch encounter procedureSfreda Desouza MD Work Phone: SANDUSKYComment on above:Thymoma (Primary Dx)Start: 80-07-6565Rsltldmys Oncology NoteSfreda Desouza MD Work Phone: Radiation OncologyComment on above:Simulation Note Treatment PlanningStart: 63-46-7357prrdlcjgjkNeorth Mohinder LPNRadiation Oncology Comment on above:Patient EducationStart: 10-11-2023 End: 28-21-1258Fbafput encounter procedureSfreda Desouza MD Work Phone: Radiation OncologyComment on above:Thymoma (Primary Dx)Start: 09-27-2023 End: 04-34-2819Gefssnqhbi hospital visit by physicianUs [facility] LoraRadiologyComment on above:Multiple thyroid nodules [E04.2]Start: 30-87-4778Vwfytfxko encounter Jasiel Turner MD Work Phone: oracic ClinicComment on above:Return To Work Letter Start: 09-21-2023 End: 73-28-1491Prloyac encounter procedureCarol Ruth Ann AMINTOE STRIPPER Work Phone: oracic ClinicComment on above:Myasthenia gravis (HCC) (Primary Dx); ThymomaStart: 09-21-2023 End: 61-74-1505Kzucqngwbf hospital visit by physicianXr Chest Main J1 Work Phone: RadiologyComment on above:Follow-up examination following surgery [Z09]Start: 50-08-5759Wezqclhtj encounterCarley Vick WINDOWS APPLICATION PACKAGER NURSING C24Lcmgubo on above:Follow Up Phone Call (RC follow up call all clear. /)Start: 79-84-2527Okmlwptvl encounterAndannmarie Busby RNNOCComment on above:Follow Up Phone Call (RC f/u all clear/)Transition Of CareStart: 09-12-2023 End: 10-56-9417Ethwypxgw to same day surgery centerAnesthesia Clearance Work Phone: [facility] Work Phone: Start: 09-12-2023 End: 77-39-5456Lerlrgk encounter procedureAnesthesia Clearance Work Phone: CardiothoracicComment on above:Encounter for preoperative anesthesiology assessment for thoracic surgery (Primary Dx) Myasthenia gravis (HCC) (Primary Dx); Benign neoplasm of thymusStart: 09-12-2023 End: 36-48-1125Zchhmdi encounter statusXr J1 Work Phone: [facility] Hospitaltart: 09-12-2023 End: 61-47-6678Nicjonvbgz hospital visit by physicianXr Chest Main J1 Work Phone: RadiologyComment on above:Myasthenia gravis (HCC) [G70.00]Start: 09-05-2023 End: 42-60-1369Vpkxyaz encounter statusCristian CrespoSemiNex 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-TOE STRIPPER Work Phone: [employer] Work Phone: Start: 09-05-2023 End: 13-18-3497Wcwhslfb preventive med est patient 40-64yrsKendra Teixeira 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-TOE STRIPPER Work Phone: [facility] Physicians Family MedicineComment on above: Wellness examination (Primary Dx); Myasthenia gravis (CMS-HCC)Start: 16-04-1039Dqvdrfvix encounterSmark Turner MD Work Phone: oracic ClinicComment on above:FMMARINANA PaperworkStart: 88-73-7084fnhodglqkfTBRSTYRLJMR M HASSETTFacility:[facility] Children's Hospitaltart: 08-28-2023 End: 62-39-7980Gpyoiloeln hospital visit by physicianMri [facility] (Istat/3t) Work Phone: [facility] Radiology MRIComment on above: Mediastinal mass [J98.59]Start: 52-91-1698Zlesilefc to same day surgery center Jasiel Turner MD Work Phone: oracic ClinicComment on above:Schedule Surgery (Robotic b/l thymectomy )Start: 16-59-1429vkmdrgvugcVqdo Raja MD Work Phone: cC[facility] MAINStart: 25-19-6928Gwashfo encounter statusJasiel Turner MD Work Phone: [facility] ClinicStart: 08-17-2023 End: 72-14-0211bmhqqogxdeDanf Serhal MD Work Phone: EndocrinologyComment on above:Abnormal results of thyroid function studies (Primary Dx); Mediastinal mass; Myasthenia gravis (HCC); Multiple thyroid nodulesStart: 08-17-2023 End: 74-10-7141Nwukqusqjfkw consultation with Rocio Welch MD Work Phone: [facility] CENTERStart: 05-25-2021 End: 69-74-2942icslbbgljmXCTVNH ROSSFacility:H7Ggayg: 01-19-2021 End: 74-05-7073qlrzrznwxvMB ODELL JOHNSONFacility:Q8Vxchr: 01-06-2021 End: 65-08-1717lijfabgaabCA BHAVNA GOMEZFacility:V5Rlydo: 12-07-2020 End: 84-54-9107swkwfciyruAY BHAVNA GOMEZFacility:H1 Procedures DateProcedureProcedure DetailPerforming ClinicianStart: 58-07-8984MPE,APTIMA HPV,AGE GDLNTiffanie HANNA Work Phone: Start: 09-43-2686Eomrcqlznsb observation [Identifier] in Cervix by Cyto stainTiffanie HANNA Work Phone: Start: 04-94-0844Leumz foot complete minimum 3 views Ender Treviño DPM Work Phone: Start: 28-77-7927Mmhjv depression screening assessment Cristian Teixeira 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-TOE STRIPPER Work Phone: Start: 22-21-7886XP TOMOSYNTHESIS SCREENING Abdullahi HANNA Work Phone: Start: 04-29-0882IlrevaefwzbNzqiafgvrkx Hassett DO Work Phone: Start: 82-87-3163Wn thorax w/contrast materialCarol Wegas 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.TOE STRIPPER Work Phone: Start: 14-05-1518MLX,APTIMA HPV,AGE GDLNTiffanie HANNA Work Phone: Start: 27-96-5948Zxwzmwavxvl observation [Identifier] in Cervix by Cyto Destiny Treviño DPM Work Phone: Start: 56-97-3283Uiiuok-up visitFollow-upKENDRA SCHLACHTERStart: 26-61-4183Puiaahwczm exam chest 2 viewsCarol Werojelios 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.TOE STRIPPER Work Phone: Start: 62-24-5075Ub thorax w/contrast materialSfreda Desouza MD Work Phone: Start: 47-37-4926Xyczbrvjwh exam chest 2 viewsJasiel Turner MD Work Phone: Start: 07-31-5972Rvngxyjryq exam chest 2 viewsJasiel Turner MD Work Phone: Start: 82-44-7477Vod abdomen w/o & w/contrast material Jasiel Turner MD Work Phone: Start: 29-93-9244NleinjxrptbSgj Ramey PA Work Phone: Start: 49-93-3960RlmfdzmfritFmlzix Gegorski RN Work Phone: Start: 35-28-9844AenvmvcotibKvjjte Gegorski RN Work Phone: Plan of Treatment DateCare ActivityDetailAuthorStart: 80-08-7340Uqkiejokq for malignant neoplasm of colonColonoscopyUniversity Hospitals [facility] Health SystemStart: 60-21-2628Zvwrngtxt for malignant neoplasm of cervixNOMS HealthcareStart: 46-67-0243Qsfsypcbc for malignant neoplasm of cervixPap SmearNOMS HealthcareStart: 32-38-6096Mvsifcue ScreeningDiabetes ScreeningWest Point ClinicStart: 13-76-1462Pkutpqct Screening Diabetes ScreeningWilson Memorial Hospitaltart: 40-24-0147Mqcjzzsb ScreeningDiabetes ScreeningWilson Memorial Hospitaltart: 04-26-2026 End: 21-89-3343Xqnplaq encounter axemghhdl84/19/2026 9:00 AM EDT Procedure Visit NOMRalph MCKEON [address] [place] [phone] Tiffanie Moreno PA [address] [place] [address] NOMRalph Delcid OBGYNStart: 59-20-9450Djqwk BMI ScreeningAdult BMI ScreeningProReg[facility] SystemStart: 02-11-2026 Depression ScreeningDepression ScreeningProRegency Hospital [facility] SystemStart: 02-11-2026 Tobacco ScreeningTobacco ScreeningKindred Healthcare SystemStart: 11-13-2025 End: 02-83-6815Yjtdcmx encounter npbxicnqr30/08/2026 10:00 AM EDT Office Visit Radiation Oncology [address] [place] [address] Zeferino Desouza MD [address] [place] [address] 2 year follow upRadiation OncologyComment on above:2 year follow upStart: 09-21-2025 End: 57-98-3345Thiuuxm encounter zysevmuky60/16/2026 9:00 AM EDT Office Visit [facility] [address], [id number] Cristian Teixeira APRNTRUESDALE HOSP[facility] [address] [place] [address] [facility] MedicineStart: 32-22-1044Ndole BMI Follow Up PlanAdult BMI Follow Up PlanKindred Healthcare SystemStart: 48-57-3948Fnkgr BMI ScreeningAdult BMI ScreeningProRegency Hospital [facility] SystemStart: 19-16-7719Fxmwulq ScreeningTobacco ScreeningKindred Healthcare System Start: 47-59-1868Tpcvuosxx for malignant neoplasm of breastMaWVUMedicine [facility] HealthcareStart: 83-46-5815Ucdui BMI Follow Up PlanAdult BMI Follow Up Plan [facility] SystemStart: 13-65-5358Bkkydul ScreeningTobacco Screening [facility] SystemStart: 04-20-2025 End: 88-57-4736NFE Skeletal system Views for bone densityDEXA bone density Imaging Routine Postmenopausal state Expected: 04/20/2025 (Approximate), Expires:04/20/2026NOMS HealthcareComment on above:Expected: 04/20/2025 (Approximate), Expires: 04/20/2026Start: 04-20-2025 End: 80-40-7363QJ Breast - bilateral ScreeningBilateral screening mammogram Imaging Routine Encounter for screening mammogram for malignant neoplasm of breast Expected: 04/20/2025, Expires: 06/20/2026[facility] Work Phone: comment on above:Expected: 04/20/2025, Expires: 06/20/2026Start: 04-20-2025 End: 85-04-9311Vafplpu encounter procedureNOMS BCP OBComment on above:Arrived Start: 57-73-8228SOFKP-19 Vaccine ( season)COVID-19 Vaccine ( season)[facility] HealthcareStart: 42-96-0378Bwcuvxzgb vaccinationProMedica Health SystemStart: 26-97-6708Blukx BMI Follow Up PlanAdult BMI Follow Up Plan [facility] SystemStart: 09-55-8306Yfkvx BMI ScreeningAdult BMI Screening [facility] SystemStart: 02-25-2025 End: 93-51-1132Ywuxmwq encounter taajdshbu71/20/2025 8:45 AM EDT Office Visit [facility] [address] [place] [phone] Ender Treviño DPJenny [address] [place] [address] ArrivedNOMS [place] PodiatryComment on above:ArrivedStart: 11-26-2024 End: 20-96-3170Piurgwf encounter procedureNeurologyComment on above:6 months follow upMalignant neoplasm of thymus (HCC) [C37]Start: 10-20-2024 End: 44-17-4117Svdhqln encounter procedureRadiologyComment on above:CCTMalignant neoplasm of thymu6 month follow upStart: 09-16-2024 End: 09-95-3968HFF W Auto Differential panel - BloodCBC auto differential Lab Routine Wellness examination Expected: 09/16/2024, Expires: 09/16/2025[facility] Work Phone: comment on above:Expected: 09/16/2024, Expires: 09/16/2025Start: 09-16-2024 End: 53-83-4007Bqoiw 1996 panel - Serum or PlasmaLipid profile Lab Routine Wellness examination Expected: 09/16/2024, Expires: 09/16/2025ProSpring[facility] Health SystemComment on above:Expected: 09/16/2024, Expires: 09/16/2025Start: 09-09-2024 End: 34-12-5099Xhgwvxd encounter djiapmzux38/04/2025 4:00 PM EST Office Visit [facility] [address], [id number] Cristian Teixeira APRNTRUESDALE HOSP[facility] [address] [place] [address] [facility] MedicineStart: 40-77-9590Utpvu BMI ScreeningAdult BMI ScreeningProRegency Hospital [facility] SystemStart: 99-42-4452Rkaqxgt ScreeningTobacco ScreeningProRegency Hospital [facility] SystemStart: 07-16-2024 End: 95-90-5655Hysnjlz encounter ucheidwfs33/08/2025 3:15 PM EST Office Visit [facility] [address] [place] [phone] Claire De Los Santos DO [address] [place] [phone] Ajay DELCIDComment on above:ArrivedStart: 06-05-2024 Screening for malignant neoplasm of breastMammogramNOMS HealthcareStart: 42-81-0899Oycbxpnqc for malignant neoplasm of breastMammogramKindred Healthcare SystemStart: 05-16-2024 End: 84-73-0151Wbalbha encounter fxogkfjxz31/08/2024 10:30 AM EST Office Visit Radiation Oncology [address] [place] [address] Zeferino Desouza MD [address] [place] [address] FollowupRadiation OncologyComment on above:FollowupStart: 05-15-2024 End: 19-20-9952Nyqxjvj encounter dvqryvoyf89/07/2024 2:00 PM EST Office Visit Radiation Oncology [address] [place] [address] Zeferino Desouza MD [address] [place] [address] FollowupRadiation OncologyComment on above:FollowupStart: 05-12-2024 End: 91-64-8818Onakimj encounter /04/2024 8:30 AM EST Office Visit [facility] [address] [place] [phone] Claire De Los Santos [address] [place] [address] NOMSUM[facility] ROUTEStart: 04-29-2024 End: 33-26-8584Pbuccbt encounter procedureRadiologyComment on above:CTMalignant neoplasm of thymusfollow up / add on per dr. carlostorStart: 04-14-2024 End: 15-35-8694MX Breast - bilateral ScreeningBilateral screening mammogram Imaging Routine Breast cancer screening by mammogram Expected: 04/14/2024, Expires: 06/14/2025NOCox [place] Work Phone: comment on above:Expected: 04/14/2024, Expires: 06/14/2025Start: 04-14-2024 End: 63-63-3133Yidynur encounter wzavcpvnf27/07/2024 9:00 AM EDT Office Visit [facility] [address] [place] [address] Tiffanie Moreno PA [address] [place] [address] ArrivedNOMS BCP OBComment on above:ArrivedStart: 03-09-2024 Covid-19 Vaccine ()Covid-19 Vaccine () [facility]tart: 80-54-6602Kqvid-19 Vaccine ()Covid-19 Vaccine ()[facility] Hospitaltart: 29-56-5763Ayupvpqlk vaccinationWilson Memorial Hospitaltart: 03-03-2024 End: 19-36-7062Llfhqfk encounter ggckkyhwr36/26/2024 3:45 PM EDT Office Visit [facility] [address], [place] Cristian Teixeira, 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TRUESDALE HOSPITAL [address] [place], [place] [phone] [facility] MedicineStart: 02-06-2024 End: 91-44-2997Qhmyzso encounter lppysvire29/31/2024 11:30 AM EDT Office Visit Neurology [address] [phone] Quinten June MD [address] [place], [place] [phone] f/uNeurologyComment on above:f/uStart: 01-03-2024 End: 90-86-3454Qfnsrvn encounter jtpabweqp83/27/2024 2:00 PM EDT Office Visit Radiation Oncology [address] [place] [address] Zeferino Desouza MD [address] [place] [address] 6 week rvRadiation OncologyComment on above:6 week rvStart: 11-30-2023 End: 34-36-5765Wpzaptp encounter gbbtvdcyz68/24/2024 2:15 PM EDT Appointment Radiation Oncology [address] [place] [address] MediastinumRadiation OncologyComment on above:MediastinumStart: 11-29-2023 End: 67-28-1644Wyystbu encounter tcuvdqgbe19/23/2024 2:15 PM EDT Appointment Radiation Oncology [address] [place] [address] MediastinumRadiation OncologyComment on above:MediastinumStart: 11-28-2023 End: 61-78-7627Lyaoevy encounter procedureRadiation OncologyComment on above: MediastinumLocation: SA-ON TREATMENT REVStart: 11-27-2023 End: 82-59-0361Uuoqbmw encounter /21/2024 2:15 PM EDT Appointment Radiation On[facility] [address] [facility] [address] [address] MediastinumRadiation OncologyComment on above:MediastinumStart: 11-26-2023 End: 10-59-1013Scienqu encounter wryjcwojw35/20/2024 2:15 PM EDT Appointment Radiation Oncology [address] [facility] [address] [address] MediastinumRadiation OncologyComment on above:MediastinumStart: 11-23-2023 End: 29-14-5147Srjaiez encounter vethavupz78/17/2024 2:15 PM EDT Appointment Radiation Oncology [address] [facility] [address] MediastinumRadiation OncologyComment on above:MediastinumStart: 11-22-2023 End: 22-74-2059Esonqwx encounter mtuwgzhae14/16/2024 2:15 PM EDT Appointment Radiation Oncology [address] [facility] [place] [address] MediastinumRadiation OncologyComment on above:MediastinumStart: 11-21-2023 End: 12-54-2837Crxtqha encounter procedureRadiation OncologyComment on above: MediastinumLocation: SA-ON TREATMENT REVStart: 11-20-2023 End: 25-88-6847Xhdnvub encounter /14/2024 2:15 PM EDT Appointment Radiation Oncology [address] [place] [address] MediastinumRadiation OncologyComment on above:MediastinumStart: 11-19-2023 End: 98-64-2630Pprteln encounter myaznjlje42/13/2024 2:15 PM EDT Appointment Radiation Oncology [address] [place] [address] MediastinumRadiation OncologyComment on above:MediastinumStart: 11-16-2023 End: 73-84-5781Ansonbw encounter eqocxihas70/10/2024 2:15 PM EDT Appointment Radiation Oncology [address] [place] [address] MediastinumRadiation OncologyComment on above:MediastinumStart: 11-16-2023 End: 06-33-4502Kqfaahi encounter yjqnixyrg24/10/2024 11:30 AM EDT Appointment Radiation Oncology [address] [place] [address] Mediastinum- this time for today per ptRadiation OncologyComment on above: Mediastinum- this time for today per ptStart: 11-15-2023 End: 89-71-7930Wqhwxfx encounter vesqqcwhn72/09/2024 2:15 PM EDT Appointment Radiation Oncology [address] [place] [address] MediastinumRadiation OncologyComment on above:MediastinumStart: 11-14-2023 End: 59-13-1461Yzhthji encounter procedureRadiation OncologyComment on above: MediastinumLocation: SA-ON TREATMENT REVStart: 11-13-2023 End: 38-94-1396Srlwipe encounter /07/2024 2:15 PM EDT Appointment Radiation Oncology [address] [place] [address] MediastinumRadiation OncologyComment on above:MediastinumStart: 11-12-2023 End: 67-18-1149Nduoemg encounter lsmoyiukm92/06/2024 2:15 PM EDT Appointment Radiation Oncology [address] [place] [address] MediastinumRadiation OncologyComment on above:MediastinumStart: 11-09-2023 End: 21-13-4871Qdeaqts encounter ecolgeuly60/03/2024 1:45 PM EDT Appointment Radiation Oncology [address] [place] [address] MediastinumRadiation OncologyComment on above:MediastinumStart: 11-08-2023 End: 08-41-1754Mctypgy encounter lixhmcudp76/02/2024 2:15 PM EDT Appointment Radiation Oncology [address] [place] [address] MediastinumRadiation OncologyComment on above:MediastinumStart: 11-07-2023 End: 90-93-8463Rtlwjuz encounter procedureRadiation OncologyComment on above: MediastinumLocation: SA-ON TREATMENT REVStart: 11-06-2023 End: 29-45-5066Eeozsnk encounter muxjlidkh13/30/2024 2:15 PM EDT Appointment Radiation Oncology [address] [place] [address] MediastinumRadiation OncologyComment on above:MediastinumStart: 11-05-2023 End: 27-63-8158Bckekmd encounter cmyigeoyx22/29/2024 11:30 AM EDT Appointment Radiation Oncology [address] [place] [address] MediastinumRadiation OncologyComment on above:MediastinumStart: 11-02-2023 End: 89-21-5408Osqgkzg encounter /26/2024 10:00 AM EDT Appointment Radiation Oncology [address] [place] [address] MediastinumRadiation OncologyComment on above:MediastinumStart: 11-01-2023 End: 95-86-9516Ottxzwm encounter bkbxvilrz95/25/2024 2:15 PM EDT Appointment Radiation Oncology [address] [place] [address] MediastinumRadiation OncologyComment on above:MediastinumStart: 10-31-2023 End: 21-12-0264Rlvhqim encounter procedureRadiation OncologyComment on above: MediastinumLocation: SA-ON TREATMENT REVStart: 10-30-2023 End: 48-94-7598Rgvjvdf encounter aewrymwln14/23/2024 2:15 PM EDT Appointment Radiation Oncology [address] [place] [address] [place] [address] MediastinumRadiation OncologyComment on above:MediastinumStart: 09-12-2023 End: 66-83-8529uSYH in Platelet poor plasma by Coagulation assayACTIVATED PTT Lab STAT Myasthenia gravis (HCC) Preoperative testing Pre-procedure lab exam Expected: 09/12/2023, Expires: 12/12/2023[facility] Work Phone: comment on above:Expected: 09/12/2023, Expires: 12/12/2023Start: 09-12-2023 End: 89-85-8305XNK W Auto Differential panel - BloodCBC + DIFF Lab STAT Myasthenia gravis (HCC) Preoperative testing Pre-procedure lab exam Expected: , Expires: 12/12/2023[facility] Work Phone: comment on above:Expected: 09/12/2023, Expires: 12/12/2023Start: 09-12-2023 End: 98-91-3977Oedqxhyjuhvqe metabolic 2000 panel - Serum or PlasmaCOMP METABOLIC PANEL Lab STAT Myasthenia gravis (HCC) Preoperative testing Pre- procedure lab exam Expected: 09/12/2023, Expires: 12/12/2023[facility] Work Phone: comment on above:Expected: 09/12/2023, Expires: 12/12/2023Start: 09-12-2023 End: 22-04-7160UBNUBSH BLOOD TYPECONFIRM BLOOD TYPE Blood Bank STAT Myasthenia gravis (HCC) Preoperative testing Pre-procedure lab exam Expected: 09/12/2023, Expires: 12/12/2023[facility] Work Phone: compwjt on above:Expected: 09/12/2023, Expires: 12/12/2023Start: 09-12-2023 End: 41-52-4078HX panel - Platelet poor plasma by Coagulation assayPROTHROMBIN TIME/PT Lab STAT Myasthenia gravis (HCC) Preoperative testing Pre-procedure lab exam Expected: 09/12/2023, Expires: 12/12/2023[facility] Work Phone: comment on above:Expected: 09/12/2023, Expires: 12/12/2023Start: 09-12-2023 End: 80-35-3288HVETF AUREUS PCRSTAPH AUREUS PCR Lab STAT Myasthenia gravis (HCC) Preoperative testing Pre-procedure lab exam Expected: 09/12/2023, Expires: 12/12/2023[facility] Work Phone: comment on above:Expected: 09/12/2023, Expires: 12/12/2023Start: 09-12-2023 End: 1968WBEG AND SCREEN,30 DAYTYPE AND SCREEN,30 DAY Blood Bank STAT Myasthenia gravis (HCC) Preoperative testing Pre-procedure lab exam Expected: 09/12/2023, Expires: 12/12/2023[facility] Work Phone: comment on above:Expected: 09/12/2023, Expires: 12/12/2023Start: 09-12-2023 End: 69-76-8362KROSFGAJZP, DIPSTICK ONLYURINALYSIS, DIPSTICK ONLY Lab STAT Myasthenia gravis (HCC) Preoperative testing Pre-procedure lab exam Expected: 09/12/2023, Expires: 12/12/2023[facility] Work Phone: comment on above:Expected: 09/12/2023, Expires: 12/12/2023Start: 08-17-2023 End: 03-56-4964QVBGZEZ PEROXIDASE ANTIBODY BLOODTHYROID PEROXIDASE ANTIBODY BLOOD Lab Routine Multiple thyroid nodules Abnormal results of thyroid function studies Expected: 08/17/2023, Expires: 11/16/2023[facility] Work Phone: Comment on above:Expected: 08/17/2023, Expires: 11/16/2023Start: 08-17-2023 End: 65-74-8715VUDGRJY STIMULATING IMMUNOGLOBULIN BLOODTHYROID STIMULATING IMMUNOGLOBULIN BLOOD Lab Routine Multiple thyroid nodules Abnormal results of th yroid function studies Expected: 08/17/2023, Expires: 11/16/2023[facility] Work Phone: Comment on above:Expected: 08/17/2023, Expires: 11/16/2023Start: 08-17-2023 End: 85-34-3027Wmuaruqbqsr [Units/volume] in Serum or PlasmaTSH BLD Lab Routine Multiple thyroid nodules Abnormal results of thyroid function studies Expected: 08/17/2023, Expires: 11/16/2023[facility] Work Phone: Comment on above:Expected: 08/17/2023, Expires: 11/16/2023Start: 08-17-2023 End: 34-46-1887Dmhnrssfb (T4) free [Mass/volume] in Serum or PlasmaT4 FREE/FREE THYROX Lab Routine Multiple thyroid nodules Abnormal results of thyroid function studies Expected: 08/17/2023, Expires: 11/16/2023[facility] Work Phone: Comment on above:Expected: 08/17/2023, Expires: 11/16/2023Start: 08-17-2023 End: 38-72-0414Hhjqwpkoggvpsouw (T3) Free [Mass/volume] in Serum or PlasmaT3 FREE BLD Lab Routine Multiple thyroid nodules Abnormal results of thyroid function studies Expected: 08/17/2023, Expires: 11/16/2023[facility] Work Phone: Comment on above:Expected: 08/17/2023, Expires: 11/16/2023Start: 39-13-7217Zchhxzuivl AssessmentDepression AssessmentWilson Memorial Hospitaltart: 61-81-1930Mqzpk-19 Vaccine ()Covid-19 Vaccine ()[facility]: 70-63-3370Ciybvzdqf vaccinationWilson Memorial Hospitaltart: 53-06-9925Hhahwhjxnqjsuj of varicella zoster vaccineZoster (Shingles) Vaccine (1 of 2)[facility]start: 18-27-7986Izzhiouagxqi Vaccine: 50+ (1 of 1 - PCV)Pneumococcal Vaccine: 50+ (1 of 1 - PCV)[facility]: 46-90-9704Cldxzcwj Vaccine (1 of 2)Shingrix Vaccine (1 of 2) [facility]: 56-50-3897Cfmgq panelLipid ScreeningGeorgetown Behavioral Hospital Start: 25-70-0480Okrtmtwmf for malignant neoplasm of colonWilson Memorial Hospitaltart: 89-94-8823Ikfpdfuxr for malignant neoplasm of breastWilson Memorial Hospitaltart: 38-61-3344Tpyjktsgv for malignant neoplasm of cervixWilson Memorial Hospitaltart: 74-63-9399Pikagvnhi for malignant neoplasm of cervixWilson Memorial Hospitaltart: 32-88-1904FWkL,Tdap and Td Vaccines (1 - Tdap)DTaP,Tdap and Td Vaccines (1 - Tdap)[facility]: 97-62-4707Lfecfujxd B Vaccine (1 of 3 - 19+ 3-dose series)Hepatitis B Vaccine (1 of 3 - 19+ 3-dose series)[facility] Start: 94-37-7124Xrjla microalbumin profileDTaP,Tdap,Td Vaccine (1 - Tdap) [facility]: 92-42-6676Qgiow BMI Follow Up PlanAdult BMI Follow Up PlanAffinity Health Partnerstart: 15-47-4360Rstqnsw ScreeningAnxiety Screening [facility]: 10-45-4687Jtfiosfcjt ScreeningDepression Screening [facility]: 29-99-7089Sytonajj foot examinationDiabetic Foot Exam [facility]start: 93-98-3970Kzmcdhkrj C screeningHepatitis C ScreeningWilson Memorial Hospitaltart: 36-90-7318IEG screeningHIV ScreeningWilson Memorial Hospitaltart: 60-73-9525Ezjboxhath ScreeningDepression ScreeningAffinity Health Partnerstart: 48-58-9818Nghqmgps screeningDiabetic Ophthalmology ExamAffinity Health Partnerstart: 58-16-2766Gbuzyghfq B Vaccine (1 of 3 - 3-dose series) Hepatitis B Vaccine (1 of 3 - 3-dose series)[facility]: 1970 Screening for malignant neoplasm of colonK[facility] End: 79-91-5454Celjpllchtszh metabolic 2000 panel - Serum or PlasmaComprehensive metabolic panel Lab Routine Wellness examination 1 Occurrences starting 09/16/2024 until 09/16/2025[facility] SystemComment on above:1 Occurrences starting 09/16/2024 until 09/16/2025 End: 37-03-8010XK Chest W contrast IVCT CHEST W IVCON Radiology Routine Malignant neoplasm of thymus (HCC) 1 Occurrences starting 10/29/2023 until 11/27/2024[facility] Work Phone: comment on above:1 Occurrences starting 10/29/2023 until 11/27/2024 End: 68-10-0726BE Chest W contrast IVCT CHEST W IVCON Radiology Routine Malignant neoplasm of thymus (HCC) 1 Occurrences starting 04/29/[address] [place] [address] Work Phone: comment on above:1 Occurrences starting 04/29/2024 until 05/29/2025 End: 42-57-6150FKN COMPLETEECG COMPLETE ECG STAT Myasthenia gravis (HCC) Preoperative testing Pre-procedure lab exam 1 Occurrences starting 08/24/[address] [place] [address] Work Phone: comment on above:1 Occurrences starting 08/24/2023 until 08/24/2024 End: 31-46-8268NmwokbojeyvstfycQZMJ Cardiology Routine Myasthenia gravis (HCC) Preoperative testing Pre-procedure lab exam 1 Occurrences starting 08/24/[address] [place] [address] Work Phone: comment on above:1 Occurrences starting 08/24/2023 until 08/24/2024THIN PREP TIS PAP AND HR HPV DNATHIN PREP TIS PAP AND HR HPV DNA Pathology and Cytology Routine Well woman exam with routine gynecological exam Ordered: 04/14/2024[facility] CenterComment on above:Ordered: 04/14/2024THIN PREP TIS PAP AND HR HPV DNATHIN PREP TIS PAP AND HR HPV DNA Pathology and Cytology Routine Well woman exam with routine gynecological exam Ordered: 04/20/2025[facility] HealthcareComment on above:Ordered: 04/20/2025US Thyroid glandUS THYROID/PARATHYROID Radiology Routine Multiple thyroid nodules 09/27/2023 10:48 AM [facility] Work Phone: End: 78-61-8781OW Thyroid glandUS THYROID/PARATHYROID Radiology Routine Multiple thyroid nodules 1 Occurrences starting 08/17/2023until [address] [place] [address] Work Phone: Comment on above:1 Occurrences starting 08/17/2023 until 09/15/2024 End: 48-53-0421WH Chest PA and LateralXR CHEST 2V FRONTAL/LAT Radiology STAT Myasthenia gravis (HCC) Preoperative testing Pre-procedure lab exam 1 Occurrences starting 08/24/[address] [place] [address] Work Phone: comment on above:1 Occurrences starting 08/24/2023 until 09/22/2024 End: 95-89-3064WB Chest PA and LateralXR CHEST 2V FRONTAL/LAT Radiology Routine Myasthenia gravis (HCC) Thymoma 1 Occurrences starting 09/21/[address] [place] [address] Work Phone: comment on above:1 Occurrences starting 09/21/[address] [place] [address] Immunizations Immunization DateImmunizationNotesCare PmorpevrVrseyown86-39-7202Fvxbfcng, quadrivalent, recombinant, injectable influenza vaccine, preservative freeZeferino Desouza MD Work Phone: [facility] HospitalYveksd67-56-5454uxzedgarc virus vaccine, unspecified formulationSmark Turner MD Work Phone: cMiami Valley HospitalZwzgfi85-35-0308Sugnztggk, injectable, [place]in [place] Canine Kidney, preservative free, quadrivalentCristian Teixeira 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-TOE STRIPPER Work Phone: [facility] Payers DatePayer CategoryPayerPolicy [id number] Managed Care - [employer] [id number] Care HMO (unspecified)[employer] [facility] Address: [facility] [id number] [place] [id number] Health [id number] Care Other (unspecified)[place] [address].2.840.437722.1.13.424.2.7.9.591911.402.26141-36-1131Fqfphak Health Insurance1.2.840.477071.1.13.693.2.7.9.872959.258762.12671-78-4585Ivldqiw 1.2.840.735020.1.13.159.2.7.3.782[id number] 2.16.840.1.255527.3.57[id number] 2.16.840.1.249756.3.579.[id number] 2.16.840.1.576925.3.579.[id number] 2.16.840.1.507235.3.579.[id number] 2.16.840.1.525328.3.579.2.8[id number] 2.16.840.1.777910.3.579.[id number] 2.16.840.1.106644.3.579.2.9[id number] 2.16.840.1.628366.3.579.[id number] 2.16.840.1.935516.3.579.2.[id number] 2.16.840.1.886350.3.579.2.[id number] 2.16.840.1.511455.3.579.2.[id number] 2.16.840.1.563360.3.579.2.251621-17-6832Yigr-[id number] [id number] 2.16.840.1.125213.3.579.2.593 Social History DateTypeDetailFacilityStart: 07-16-2023 End: 70-63-4217Vokucjz smoking status NHISNever smoked tobaccoGeorgetown Behavioral Hospital Start: 07-16-2023 End: 62-87-5208Oekzqqg use and exposureSmokeless tobacco non-userWilson Memorial Hospitaltart: 08-06-2023 End: 61-81-1807Zrknepq intakeCurrent drinker of alcohol (finding)[facility] Hospitaltart: 08-06-2023 End: 75-46-8058Pajvjyw of Social functionWilson Memorial Hospitaltart: 08-06-2023 End: 52-04-2926Dvqhneo use panelWilson Memorial Hospitaltart: 67-07-7687Kpyov Depression Screening Jcwqzgicmu4Frolwgewm ClinicStart: 41-19-9477Nynufbo Comment RarelyWilson Memorial Hospitaltart: 17-74-2072Rqv Assigned At BirthFemaleCCleveland Clinic Fairview Hospitaltart: 90-72-0782Ilyvtl identityIdentifies as female gender (finding) [facility]tart: 45-32-2413Lhnjro orientationHeterosexual (finding) [facility] HospitalHow often to you have a drink containing alcohol?Monthly or less [facility] HealthcareHow often do you have 6 or more drinks on 1 occasion?NeverPARK CITY HOSPITAL HealthcareStart: 32-51-7468Jshtqqo CommentCaffeien intake on occasionKansas City VA Medical CenterStart: 09-05-2023 End: 05-61-2697Pzebqmp intakeCurrent non-drinker of alcohol (finding)[facility] SystemStart: 84-98-3844Pib Assigned At BirthNot on fileProRegency Hospital Cleveland East SystemStart: 18-70-2646XemHkhlzx (finding)[facility] SystemNEGATED: Highlighted rowStart: NINFHistory of tobacco usePassive smokerGeorgetown Behavioral Hospital Functional Status RwoaMbjfugmrauIotytyZrhwerak22-81-9573Pib you deaf, or do you have serious difficulty hearingNo 09/15/2023 10:28 AM EST Lisa Humphrey RN NoCMiami Valley Hospital 41-70-6058Ear you blind, or do you have serious difficulty seeing, even when wearing glassesNo 09/15/2023 10:28 AM Lisa Benito RN [facility] 27-33-5048Wx you have serious difficulty walking or climbing stairsNo 09/15/2023 10:28 AM Lisa Benito RN [facility]03-09-2024Do you have difficulty dressing or bathingNo 09/15/2023 10:28 AM Lisa Benito RN [facility] SystemVmycox17-40-7290Npbwldc of a physical, mental, or emotional condition, do you have difficulty doing errands alone such as visiting a physician's office or shoppingNo 09/15/2023 10:28 AM Lisa Benito RN [facility] Mental Status PkhfLkphqwsiwrSagsshLgrueekw34-38-2625Kofjjql of a physical, mental, or emotional condition, do you have serious difficulty concentrating, remembering, or making decisionsNo 09/15/2023 10:28 AM Lisa Benito RN [facility] Clinical Notes 01-13-2021 to 04-20-2025 Note Date & TsskAeguOxukpniq42-23-9619 History of Present illness Narrative* JACQUES Gomez - 04/20/2025 9:00 AM EDT [...] nursing note reviewed. Exam conducted with a director of residence life present. Vitals: Estimated body mass index is 38.02 kg/m as calculated from the following: Height [...] behalf of: JACQUES Gomez documented in this encounterKansas City VA Medical CenterMuompsjupr94-52-8474 History of Present illness Narrative* Ender Treviño, DPM - 02/25/2025 8:45 AM EDT Images from the original note were not included. Subjective Patient ID: Yaneth Arana is a 54 y.o. 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 After starting this job she started noticing pain along the medial aspect of th e right ankle. Worse with walking, standing. She has tried changing shoe gear various times with minimal improvement. It seems to be worse after working her long shifts and then it gradually improvesover the week until she goes back to [...] Female infertility H/O myasthenia gravis Myasthenia gravis ([facility]) 06/2023 Medications Current Outpatient Medications: ibuprofen 800 [...] talar head uncoverage. No fractures or dislocations n oted. Joints appear well-maintained. Assessment/Plan ICD-10-CM 1. Posterior [...] understanding. Ender Treviño DPM documented in this encounterKansas City VA Medical CenterMgxhuojyqw37-44-1516 History of Present illness Narrative* Cristian Teixeira, 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-TOE STRIPPER - 02/11/2025 2:45 PM EDT Images from the original note were not included. [address] [place] [id number] SUBJECTIVE: Patient ID: Marnie Arana is a 54 y.o. female. Patient presents to the office with complaints of medial right ankle pain. It started in beginning of December. In November she bought [employer]of[employer] sandals when she was on vacation and was wearing them for awhile. Had some awkwardness because they had a high arch. Then she started to work at [employer] in [place] and bought [employer] and started to have pain in her right ankle when she was on her feet for long periods of time. Switched to [employer] and still having issues. Has tenderness to medial ankle. Ankle Pain Pertinent negatives include no numbness. The following portions of the patient's history were reviewed and updated as appropriate: allergies, current medications, past family history, past medical history, past social history, past surgicalhistory and problem list. REVIEW OF SYSTEMS: Review [...] right minimum 3 views; Future Myasthenia gravis ([facility]) Follow-up: Would like referral to podiatry is leaving for [facility] referral SO Briones 02/11/25 1515 documented in this encounterCleveland Clinic [facility]05-21-2025 NoteHNO ID: [id number] Author: GUDELIA COE APRN.CNP Service: ? Author Type: Nurse Practitioner Type: Progress Notes Filed: 11/26/2024 15:12 Note Text: Part of this note was copied from previous note, all content has been individually reviewed, updated as necessary, and thoroughly reviewed. [facility] - OUTPATIENT THORACIC SURGERY CLINIC NOTE PT NAME: [facility] Cassidy [facility] [id number] THORACIC SURGEON: Jasiel Turner M.D. DATE OF [...] been determined by the performing laboratory [facility] [place] ([facility], [facility], [facility], [facility], [facility], [facility], or [facility]) in a manner consistent with CLIA requirements. [...] vision, symptoms began 05/2023. 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 Tumor wa (more content not included)...[facility]05-21-2025 NoteHNO ID: [id number] Author: TRISH PRO RN Service: Radiology Author [...] Arana DATE: November 26, 2024 TIME: 1:14 [facility]05-21-2025 NoteHNO ID: [id number] Author: ADA SERVIN RT(R) Service: Radiology Author Type: Technologist Type: [...] PATIENT PRESENTS WITH AN IMPLANTABLE OR ATTACHED PMO PROJECT MANAGER: No RADIOLOGY DEPARTMENT: CT; Exam(s) Completed: Chest PERIPHERAL IV DATA: Site assessment: Clean,Dry and Intact, Site disposition Discontinued SIGNED BY: Ada Servin, RT(R) November 26, 2024 1:23 [facility]05-21-2025 NoteHNO ID: [id number] Author: QUINTEN JUNE MD Service: ? Author Type: Physician Type: Progress Notes Filed: 11/26/2024 12:51 Note Text: I saw Marnie Arana at the [facility] on 04/29/24 in follow [...] week next year. 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 Going to [employer] twice! Doing very well. Completed steroids end [...] symptoms recur RV in 6 months Quinten June MD [facility] [place] [facility] [address] [place], [place] [id number] I spent a total of 25 minutes on the date of the service which included preparing to see the patient, ognh-dn-vpmn patient care, completing clinical documentation, obtaining and/or reviewing separately obtained history, performing a medically appropriate examination, counseling and educating the patient/family/caregiver.[facility]03-11-2025 History of Present illness Narrative* Cristian Teixeira, VIVIAN-TOE STRIPPER - 09/16/2024 3:00 PM EDT Images from the original note were not included. [address] [facility] [id number] Subjective: Marnie Arana is a 54 y.o. [...] Diagnosis Date Noted Thymoma 03/03/2024 Myasthenia gravis ([facility]) 06/13/2023 History reviewed. No pertinent past medical [...] Future - Lipid profile; Future Myasthenia gravis ([facility]) Thymoma Plan No outpatient medications prior to visit. No facility-administered medications prior to visit. Follow Up: Cbc,cmp,lipid-will call with results Keep appointments with specialist Follow up yearly Patient noted to have elevated BMI and the following intervention(s) were applied: encouragement toexercise. SO Briones 09/16/24 1512 documented in this encounterC[facility] History of Present illness Narrative* Claire De Los Santos DO - 07/16/2024 3:15 PM EST Images from the original note were not [...] reflexes are 2+ and symmetric throughout. Coordination: Buuesk-id-aerr testing and rapid alternating movements are normal Gait: Normal Review and summary of old records: I have reviewed the patient's care plan from [facility]. She last saw Neurology on 04/29/2024with Dr June. They have recommended discontinuation of Mestinon and have recommended reduction of prednisone from 5 mg p.o. daily and reducing this further by 1 mg monthly until it is off. She also saw Dr. Rosmery Turner from cardiothoracic surgery at [facility] on 08/06/23. There is a plan to remove the patient's thymoma robotically in approximately 1 month. They have also ordered anMRI of the patient's liver which is scheduled for August 28. Acetylcholine blocking antibody and modulating antibody on 06/04/23 are both POSITIVE Patient states she had a recent CT of the brain without contrast at [facility] which was unremarkable. 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 This appears to be largely in remission with active weaning of prednisone.. She has a thymoma which HAS BEEN surgically resected at [facility] by Dr. Turner. Plan: Continue to wean prednisone per neurology recommendations at [facility] Thymoma The patient has thymoma identified on CT of the chest. She is status post surgical resection from the thymoma by Dr. Turner at [facility]. She is also [facility]. Liver lesion Patient has a lesion identified in the liver. 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 She has established with the Coumadin clinic team to follow this as well Pt has been fully educated on their diagnosis, lab results, treatment options, follow up plan, and return instructions documented in this encounterKansas City VA Medical [id number] History of Present illness Narrative* Cristian Teixeira, 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-TOE STRIPPER - 05/20/2024 8:15 AM EST Images from the original note were not included. [address] [place] [id number] SUBJECTIVE: Patient ID: Marnie Arana is a 53 y.o. female. Patient presents to the office for routine follow up. She followed up with neurology for myastheniagravis and is doing well and tapering off prednisone. She is having a lot of congestion for the past month. Does have a list of medications neurology states she cannot take some are atbs. Nasal Congestion Associated symptoms include congestion and sinus pressure. Pertinent negatives include no coughing,ear pain, neck pain, shortness of breath or sore throat. The following portions of the patient's history were reviewed and updated as appropriate: allergies, current medications, past family history, past medical history, past social history, past surgicalhistory and problem list. REVIEW OF SYSTEMS: Review [...] all orders for this visit: Myasthenia gravis ([facility] Thymoma Acute non-recurrent maxillary sinusitis Follow-up: Cefdinir 300mg bid for ten days Keep appointments with specialist Follow up in six months or as needed Patient noted to have elevated BMI and the following intervention(s) were applied: encouragement toexercise. SO Briones 05/20/24 0835 documented in this encounterCleveland [facility]11-08-2024 History of Present illness Narrative* Zeferino Desouza MD - 05/16/2024 11:12 AM EST Radiation Oncology - Follow Up Note PATIENT NAME: Marnie Arana PATIENT Signed by: Zeferino Desouza MD I spent a total of 20 minutes on the date of the service which included preparing to see the patient, jbev-lo-leus patient care, and counseling and educating the patient/family/caregiver. This document has been created with the use of voice recognition technology. It may contain inaccuracies, misspellings, inaccurate syntax or inappropriate word context that are a result of the inadequacies/shortcomings of said technology/software. documented in this encounterGe[facility]11-08-2024 NoteHNO ID: [id number] Author: ZEFERINO DESOUZA MD Service: ? Author Type: Physician Type: Progress Notes Filed: 06/03/2024 04:39 Note Text: Radiation Oncology - Follow Up Note PATIENT NAME: Marnie Arana PATIENT DIAGNOSIS/PATIENT IDENTIFICATION: Ms. Arana is a 53-year-old woman diagnosed with Stage I, [id number] (AJCC)/Stage IIa ([place]) thymoma (Type AB) status [...] a 53-year-old woman diagnosed with Stage I, [id number] (AJCC)/Stage IIa ([place]) thymoma (Type AB) status [...] which included preparing to see the patient, tlik-uq-zudn patient care, and counseling and educating the patient/family/caregiver. This document has been created with the use of voice recognition technology. It may contain inaccuracies, misspellings, inaccurate syntax or inappropriate word context that are a result of the inadequacies/shortcomings of said technology/software.[facility]10-[facility] Instructions* Patient Instructions* Quinten June MD - 04/29/2024 1:28 PM EDT Our [...] the previous dose that had the symptoms controlledand contact my office - continue calcium and vitamin D while on prednisone documented in this encounterGeorgetown [facility]al Hospital10-22-2024 NoteHNO ID: [id number] Author: QUINTEN JUNE MD Service: ? Author Type: Physician Type: Progress Notes Filed: 04/29/2024 13:58 Note Text: I saw Marnie Arana at the [facility] on 04/29/24 in follow [...] visit: Two 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 Will have another CT scan x 6 [...] Ca++ RV in ~ 5 months Quinten June MD [facility] [place] [facility] [address] [place] [address] I spent a total of 25 minutes on the date of the service which included preparing to see the patient, wptd-eu-nohz patient care, completing clinical documentation, obtaining and/or [...] chair: 0=None Double vision: 0=None Eyelid droop: 0=NoneGu[facility]sey [facility]10-[facility]-20[facility] History of Present illness Narrative* Quinten June MD - 04/29/2024 12:56 PM EDT I saw Marnie Arana at the [facility] on 04/29/24 in follow [...] visit: Two kids in college, one in [employer] (will graduate in six weeks) and one at [employer]. 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 Will have another CT scan x 6 [...] de-accessaccording to line specific nursing protocol in the [...] Ca++ RV in ~ 5 months Quinten June MD [facility] [place] [facility] [address] [place] [address] I spent a total of 25 minutes on the date of the service which included preparing to see the patient, mqlq-ub-wcgf patient care, completing clinical documentation, obtaining and/or reviewing separately obtained history, performing a medically appropriate examination, counseling and educating the pat ient/family/caregiver, and ordering medications, tests, or procedures. Answers [...] 0=None Eyelid droop: 0=None documented in this encounterGeorgetown Behavioral Hospital10-22-2024 History of Present illness Narrative* Kandy Vallecillo APRN.TOE STRIPPER - 04/29/2024 11:03 AM EDT Part of this note was copied from previous note, all content has been individually reviewed, updated as necessary, and thoroughly reviewed. [facility] - OUTPATIENT THORACIC SURGERY CLINIC NOTE PT NAME: Marnie Cassidy [facility] NO: [id number] THORACIC SURGEON: Jasiel Turner M.D. DATE OF [...] been determined by the performing laboratory within [facility] s Psychiatric Pathology and Laboratory Medicine [place] ([facility], [facility], [facility], [facility], [facility], [facility], or [facility]) in a manner consistent with CLIA requirements. One or more of these tests have not been cleared or approved by the FDA. [facility] is regulated under CLIA as qualified to perform high-complexity testing. These tests are used for clinical purposes. They should not be regarded as invest igational or for research. Positive and negative controls [...] (Chapter 1, 8th Ed.) it is the managingphysician s responsibility to establish the final pathologic [...] vision, symptoms began 05/2023. 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 - neurology management with Dr June f/u later today - radiation oncology management with Dr Desouza f/u 05/16/24 Kandy Vallecillo APRN.TOE STRIPPER documented in this encounterGeorgetown Behavioral Hospital10-22-2024 NoteHNO ID: [id number] Author: KANDY VALLECILLO APRN.ISABELL Service: ? Author Type: Nurse Practitioner Type: Progress Notes Filed: 04/29/2024 13:03 Note Text: Part of this note was copied from previous note, all content has been individually reviewed, updated as necessary, and thoroughly reviewed. [facility] OUTPAT[facility] SURGERY [facility]IC NOTE PT NAME: Marnie Arana [facility] NO: [id number] THORACIC SURGEON: Jasiel Turner M.D. DATE OF [...] been determined by the performing laboratory within [facility] Pathology and Laboratory Medicine [place] ([facility], [facility], [facility], [facility], [facility], [facility], or [facility]) in a manner consistent with CLIA requirements. [...] vision, symptoms began 05/2023. 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 Tumor wa (more content not included)...[facility]10-22-2024 History of Present illness Narrative* Prosper Razo RN - 04/29/2024 10:00 AM EDT Radiology Service Progress Note DATE OF SERVICE: [...] DATE: April 29, 2024 TIME: 9:49 AM * Annabel Newman RT(R) - 04/29/2024 10:00 AM EDT Radiology Service Progress Note PATIENT NAME: Marnie [...] PATIENT PRESENTS WITH AN IMPLANTABLE OR ATTACHED PMO PROJECT MANAGER: No RADIOLOGY DEPARTMENT: CT; Exam(s) Completed: Chest PERIPHERAL IV DATA: Site assessment: Clean,Dry and Intact, Site disposition Discontinued SIGNED BY: RT Nicky(R) April 29, 2024 10:03 AM documented in this encounterGeorgetown Behavioral Hospital10-22-2024 NoteHNO ID: [id number] Author: PROSPER RAZO RN Service: Nursing Author [...] Arana DATE: April 29, 2024 TIME: 9:49 [facility]10-22-2024 NoteHNO ID: [id number] Author: ANNABEL NEWMAN RT(R) Service: Radiology Author Type: Cryptologic Support Specialist Type: Progress Notes Filed: 04/29/2024 10:08 Note [...] PATIENT PRESENTS WITH AN IMPLANTABLE OR ATTACHED PMO PROJECT MANAGER: No RADIOLOGY DEPARTMENT: CT; Exam(s) Completed: Chest PERIPHERAL IV DATA: Site assessment: Clean,Dry and Intact, Site disposition Discontinued SIGNED BY: RT Nicky(R) April 29, 2024 10:03 [facility]10-07-2024 History of Present illness Narrative* JACQUES Gomez - 04/14/2024 9:00 AM EDT Reason for Appointment: Patient [...] nursing note reviewed. Exam conducted with a director of residence life present. Vitals: Estimated body mass index is [...] behalf of: JACQUES Gomez documented in this encounterKansas City VA Medical [id number] History of Present illness Narrative* Cristian Teixeira APRN-TOE STRIPPER - 03/03/2024 3:45 PM EDT Images from the original note were not included. [address] [facility] [id number] SUBJECTIVE: Patient ID: Marnie Arana is a 53 y.o. female. Patient presents to the office for routine check up. Did finish radiation for thymoma and had resection in september. She is doing well. Did see neurology at [facility] and they are decreasing her steroids. Her [...] past medical history, past social history, past surgicalhistory and problem list. REVIEW OF SYSTEMS: Review [...] all orders for this visit: Myasthenia gravis ([facility]) Thymoma Follow-up: Keep appointments with specialist Follow up in six months or as needed Patient noted to have elevated BMI and the following intervention(s) were applied: encouragement toexercise. SO Briones 03/03/24 1601 documented in this encounterMemorial HospitalUltraSoC Technologies [id number] Instructions* Patient Instructions* Quinten June MD - 02/06/2024 11:57 AM EDT Our plan: Continue the pyridostigmine Feb 06: [...] D while on steroids documented in this encounterGeorgetown [facility] Hospital07-31-2024 History of Present illness Narrative* Quinten June MD - 02/06/2024 11:30 AM EDT I saw Marnie Arana at the [facility] on 02/06/24 in follow up for thymomatous seropositive MG (ocular). HPI: Ms. 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 At that visit was undergoingradiation for thymoma. 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 ROS: [...] thymectomy and adjuvant radiation. Neurologic exam is normalso would classify currently as pharmacologic remission. Will continue slow steroid taper and monitor for any symptom recurrence. Plan: Reduce prednisone to 7.5 mg x 1 month Then reduce prednisone to 5 mg until follow up (refills through [facility]) Continue pyridostigmine PRN Continue vitamin D RV in 2-3 months Quinten June MD [facility] [place] [facility] [address] [place] [address] I spent a total of 30 minutes on the date of the service which included preparing to see the patient, hqsx-nj-qrmm patient care, completing clinical documentation, obtaining and/or reviewing separately obtained history, performing a medically appropriate examination, counseling and educating the pat ient/family/caregiver, and ordering medications, tests, or procedures. Answers submitted by the patient for this visit: Activities of Daily Living (MG-ADL) (Submitted on 01/30/2024) Talkin=Normal [place]win=Normal Swallowin=Normal Breathin=Normal Impairment of ability to brush teeth or comb hair: 0=None Impairment of ability to rise from a chair: 0=None Double vision: 1=Occurs, but not daily Eyelid droop: 0=None documented in this encounterGeorgetown Behavioral Hospital07-31-2024 NoteHNO ID: [id number] Author: QUINTEN JUNE MD Service: ? 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 ROS: [...] vitamin D RV in 2-3 months Quinten June MD [facility] [place] [facility] [address] [place], [place] [id number] I spent a total of 30 minutes on the date of the service which included preparing to see the patient, jomr-hc-libd patient care, completing clinical documentation, obtaining and/or [...] vision: 1=Occurs, but not daily Eyelid droop: 0=None[facility]06-27-2024 History of Present illness Narrative* Zeferino Desouza MD - 01/03/2024 2:00 PM EDT Radiation Oncology - Follow Up Note PATIENT NAME: Marnie Arana PATIENT DIAGNOSIS/PATIENT IDENTIFICATION: Ms. Arana is a 53-year-old woman diagnosed with Stage I, [id number] (AJCC)/Stage IIa ([place]) thymoma (Type AB) status [...] inadequacies/shortcomings of said technology/software. documented in this encounterGeorgetown Behavioral Hospital06-27-2024 NoteHNO ID: [id number] Author: ZEFERINO DESOUZA MD Service: ? Author Type: Physician Type: Progress Notes Filed: 01/15/2024 05:38 Note Text: Radiation Oncology - Follow Up Note PATIENT NAME: Marnie Arana PATIENT DIAGNOSIS/PATIENT IDENTIFICATION: Ms. Arana is a 53-year-old woman diagnosed with Stage I, [id number] (AJCC)/Stage IIa ([place]) thymoma (Type AB) status [...] is being weaned off her prednisone. Ms. Sumit well approximately 1 month out with no [...] a result of the inadequacies/shortcomings of said technology/software.[facility]06-11-2024 Telephone encounter Note* Telephone Encounter - Zeferino Desouza MD - 12/18/2023 10:40 AM EDT Thanks! Zeferino [facility] Work Phone: [phone] Miscellaneous Notes* Telephone Encounter - Zefeirno Desouza MD - 12/18/2023 10:40 AM EDT Thanks! Zeferino * Telephone Encounter - Dilcia Price RN - 12/18/2023 9:24 AM EDT Call placed to pt to check status post XRT. Pt states overall she is doing great. She has had no issues at all after treatment. She states I feel so good, it makes me wonder if it worked. She is currently on vacation and doing well. She will see Dr Desouza as scheduled on 01/02. Dilcia Price RN documented in this encounterGeorgetown Behavioral Hospital06-11-2024 Telephone encounter Note * Telephone Encounter - Dilcia Price RN - 12/18/2023 9:24 AM EDT Call placed to pt to check status post XRT. Pt states overall she is doing great. She has had no issues at all after treatment. She states I feel so good, it makes me wonder if it worked. She is currently on vacation and doing well. She will see Dr Desouza as scheduled on 01/02. Dilcia Price RN [facility]05-24-2024 History of Present illness Narrative* Zeferino Desouza MD - 11/30/2023 12:00 AM EDT [facility] Radiation Oncology Department RADIATION ONCOLOGY - COMPLETION NOTE PATIENT: MARNIE ARANA: 1970 DATES OF TREATMENT: 10/25/23 - 11/30/23 DIAGNOSIS: Ms. Arana is a 53-year-old woman diagnosed with Stage I, [id number] (AJCC)/Stage IIa ([place]) thymoma (Type AB) status post bilateral robotic- assisted VATS total thymectomy on 09/13/[address] [...] . Staff Physician Zeferino Desouza M.D. / NRS 45:45 AM Electronically Signed cc: Jasiel Turner MD ([facility]) Kandy Vallecillo APRN.ISABELL ([facility]) Quinten June MD ([facility]) David Trinh MD ([facility]) Ana María Mckeon MD [id number] [place] [id number] [address] documented in this encounterGeorgetown Behavioral Hospital05-22-2024 History of Present illness Narrative* Zeferino Desouza MD - 11/28/2023 7:50 PM EDT Radiation Oncology - On Treatment Review (OTR) Note PATIENT NAME: Marnie Arana PATIENT DIAGNOSIS: Ms. Arana is a 53-year-old woman diagnosed with Stage I, [id number] (AJCC)/Stage IIa ([place]) thymoma (Type AB) status post bilateral robotic- assisted VATS total thymectomy on 09/13/[address] [...] planned. Zeferino Desouza MD documented in this encounterGeorgetown Behavioral Hospital05-20-2024 History of Present illness Narrative* Zeferino Desouza MD - 11/26/2023 11:57 PM EDT Radiation Oncology - On Treatment Review (OTR) Note PATIENT NAME: Marnie Arana PATIENT Zeferino Desouza MD documented in this encounterGeorgetown Behavioral Hospital05-15-2024 Nurse Note* Zaira Vines LPN - 11/21/2023 2:51 PM EDT Status: Post-menopausal. [facility]05-15-2024 Nurse Note* Zaira Vines LPN - 11/21/2023 2:51 PM EDT Status: Post-menopausal. documented in this encounterGeorgetown Behavioral Hospital05-15-2024 History of Present illness Narrative* Zeferino Desouza MD - 11/21/2023 6:33 AM EDT Radiation Oncology - On Treatment Review (OTR) Note PATIENT NAME: Marnie Arana PATIENT DIAGNOSIS: Ms. Arana is a 53-year-old woman diagnosed with Stage I, [id number] (AJCC)/Stage IIa ([place]) thymoma (Type AB) status post bilateral robotic- assisted VATS total thymectomy on 09/13/[address] [...] the chest or neck and reports no skinirritation or itching. She denies any change in [...] planned. Zeferino Desouza MD documented in this encounterGeorgetown Behavioral Hospital05-01-2024 Nurse Note* Zaira Vines LPN - 11/07/2023 2:53 PM EDT Status: Post-menopausal. [facility]05-01-20[facility] Nurse Note* Zaira Vines LPN - 11/07/2023 2:53 PM EDT Status: Post-menopausal. documented in this encounterGeorgetown Behavioral Hospital05-01-2024 History of Present illness Narrative* Zeferino Desouza MD - 11/07/2023 2:30 PM EDT Radiation Oncology - On Treatment Review (OTR) Note PATIENT NAME: Marnie Arana PATIENT DIAGNOSIS: Ms. Arana is a 53-year-old woman diagnosed with Stage I, [id number] (AJCC)/Stage IIa ([place]) thymoma (Type AB) status post bilateral robotic- assisted VATS total thymectomy on 09/13/[address] [...] planned. Zeferino Desouza MD documented in this encounterGeorgetown Behavioral Hospital04-24-2024 History of Present illness Narrative* Zeferino Desouza MD - 10/31/2023 3:00 PM EDT Radiation Oncology - On Treatment Review (OTR) Note PATIENT NAME: Marnie Arana PATIENT DIAGNOSIS: Ms. Arana is a 53-year-old woman diagnosed with Stage I, [id number] (AJCC)/Stage IIa ([place]) thymoma (Type AB) status post bilateral robotic- assisted VATS total thymectomy on 09/13/[address] [...] slow taper off of her prednisone. She endorsesgood energy appetite and hydration with stable weight. [...] treatment to the chest as well as thepotential acute toxicities during treatment and their time course. Discussed the importance of a well-balanced diet, hydration, and exercise/activity as tolerated through the course of treatment. Zeferino Desouza MD documented in this encounterGeorgetown Behavioral Hospital04-24-2024 Nurse Note* Zaira Vines LPN - 10/31/2023 2:54 PM EDT Status: Patient states there is no possibility she is at this time. [facility]04-24-[facility] Nurse Note* Zaira Vines LPN - 10/31/2023 2:54 PM EDT Status: Patient states there is no possibility she is at this time. documented in this encounterGeorgetown Behavioral Hospital04-22-2024 Instructions* Patient Instructions* David Trinh MD - 10/29/2023 4:52 PM EDT We evaluated today as a follow-up for myasthenia gravis. Based on our assessment, we think that youhave improved significantly. We recommend the following: - [...] Follow-up in 3-4 months. documented in this encounterGeorgetown Behavioral Hospital04-22-2024 History of Present illness Narrative* David Trinh MD - 10/29/2023 4:00 PM EDT [facility] [place] [facility] Note- Established patient Provider: David Trinh MD ([place] Fellow)/ Quinten June MD ([place] Staff) Date of last clinic visit: 07/16/23 [...] fatigue become worse. She saw her local allopathic doctor who did not find objective evidence of [...] Able to rise from chair without use ofarms. DTRs: 2+ B/L UEs & LEs. Sensory: [...] and keep at that dose until next follow-upappointment. - Discussed appropriate use pyridostigmine (emphasized that she should not wake herself up at 2AM to take a dose). Patient will adjust how she uses it and track her symptoms. Return visit in ~ 3 months To contact this office via telephone and/or [employer] if no communication of results received by expected turnaround time, as discussed during the visit. To aid with communication, patients (and primary care physicians) can sign up for [employer] (or [employer]), which allows online appointment scheduling, transmission of labs results and chart notes, andsecure email communication. To establish either account, visit [email or web address]. David Trinh MD [place] Fellow, [facility] [facility] [place] In the service of Quinten June MD (NM Staff) [NB- clinic note not considered final until co-signed by NM Staff] Primary care provider: Ana María Mckeon MD ([facility]) [address] [place] [id number] I saw and evaluated the patient, reviewed and discussed the yañez elements and findings with the fellow, and agree with and edited where appropriate the above note. Medical Decision Making: Problems: Low: Stable chronic illness Data: Unique test result(s) reviewed: 1 Risk: Moderate: Drug management Medical Decision Making Level: 3 - Low Quinten June MD documented in this encounterGe[facility]04-22-2024 History of Present illness Narrative* Yoselin Santillan RT(Carlos) - 10/29/2023 2:00 PM EDT Radiology Service Progress Note PATIENT NAME: Marnie [...] PATIENT PRESENTS WITH AN IMPLANTABLE OR ATTACHED PMO PROJECT MANAGER: No RADIOLOGY DEPARTMENT: General X-ray: Exam(s) Completed: Chest X-Ray PERIPHERAL IV DATA: Not applicable SIGNED BY: RT Pura(Carlos) October 29, 2023 1:26 PM documented in this encounterGeorgetown Behavioral Hospital04-22-2024 History of Present illness Narrative* Kandy Vallecillo APRN.TOE STRIPPER - 10/29/2023 1:59 PM EDT Images from the original note were not included. [facility] - OUTPATIENT THORACIC SURGERY CLINIC NOTE PT NAME: Marnie Cassidy [facility] NO: [id number] THORACIC SURGEON: Jasiel Turner M.D. DATE OF [...] been determined by the performing laboratory within [facility] [place] ([facility], [facility], [facility], [facility], [facility], [facility], or [facility]) in a manner consistent with CLIA requirements. One or more of these tests have not been cleared or approved by the FDA. [facility] is regulated under CLIA as qualified to perform high-complexity testing. These tests are used for clinical purposes. They should not be regarded as invest igational or for research. Positive and negative controls [...] (Chapter 1, 8th Ed.) it is the managingphysician s responsibility to establish the final pathologic [...] vision, symptoms began 05/2023. 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 She has a [...] with Dr Trinh, f/u 10/29/23 Kandy Vallecillo APRN.TOE STRIPPER documented in this encounterGeorgetown Behavioral Hospital04-09-2024 History of Present illness Narrative* Deirdre House RN - 10/16/2023 12:15 PM EDT Radiology Service Progress Note DATE OF SERVICE: [...] DATE: October 16, 2023 TIME: 12:31 PM * Eboni Carranza, RT(R) - 10/16/2023 12:15 PM EDT Radiology Service Progress Note PATIENT NAME: Marnie [...] PATIENT PRESENTS WITH AN IMPLANTABLE OR ATTACHED PMO PROJECT MANAGER: No RADIOLOGY DEPARTMENT: CT; Exam(s) Completed: Chest PERIPHERAL IV DATA: Site assessment: Clean,Dry and Intact, Site disposition Discontinued SIGNED BY: Eboni Carranza RT(R) October 16, 2023 12:33 PM documented in this encounterGeorgetown Behavioral Hospital04-05-2024 History of Present illness Narrative* Zeferino Desouza MD - 10/12/2023 12:00 AM EDT MARNIE ARANA [id number] 10/12/2023 [facility] Radiation Oncology Department SIMULATION NOTE DATE OF SIMULATION: 10/12/2023 THERAPIST: Key Day MACHINE: PharmMD DIAGNOSIS: Malignant neoplasm of anterior [id number] AREA: THORAX CONTRAST: IV <Select> Consent in [...] / CARL 45:27 PM documented in this encounterGeorgetown Behavioral Hospital04-05-2024 History of Present illness Narrative* Zeferino Desouza MD - 10/12/2023 12:00 AM EDT MARNIE ARANA [id number] 10/12/2023 [facility] Department of Radiation Oncology Treatment Planning Note For reasons stated in the consult note, Marnie Arana is a candidate for radiation therapy. Based on review and interpretation of the relevant diagnostic studies together with the exam findings, Marnie Arana was simulated on 10/12/2023 at which time the target volume and/or requisite park were d elineated, as indicated in the simulation note, to be treated according to the prescription. An ITV was created from all the phases of respiratory motion captured by the 4DCT image sets. Motion management allowed for design of patient specific planning target volume and reduced the radiationexposure to normal tissues. The treatment target and [...] using conventional or 3D planning. The specific doserequirements for the PTV, organs at risk and dose-volume histograms are contained in this treatmentplan and/or elsewhere in the medical record. A completed summary of this plan dated 10/24/2023 incorporated herein by reference includes dose, beam arrangements, energy, blocking, isodose distribution, and/or ports and DVH. Electronically Signed Zeferino Desouza M.D. 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 Patient has an Onbody or Implanted device: No Signed by: Zaira Vines LPN documented in this encounterGeorgetown Behavioral Hospital04-04-2024 History of Present illness Narrative* Zeferino Desouza MD - 10/11/2023 2:24 PM EDT Images from the original note were not included. Radiation Oncology - New Patient/Consult Note PATIENT NAME: Marnie Arana PATIENT REQUESTING PHYSICIAN: Dr. Jasiel Turner DIAGNOSIS: Stage I, [id number] (AJCC)/Stage IIa ([place]) thymoma (Type AB) PATIENT IDENTIFICATION: This patient was seen in the Department of Radiation Oncology at the [facility] with Zeferino Desouza MD. She was accompanied today by her spouse. Final recommendations will be communicated back to the requesting physician by way of the shared medical record, or letter to requesting physician via US mail. HISTORY OF PRESENT ILLNESS: Ms. Arana is a 53-year-old woman from [place], [place], who was diagnosed with myasthenia gravis when she presented in May 2023 with symptoms of double vision. Initial workup by her allopathic doctor included a CT of her orbits which showed no specific abnormalit ies and she had improvement in her vision with the use of prism glasses. Blood work at the time didnote the presence of acetylcholine receptor binding antibodies and subsequently met with a neurologist and was started on pyridostigmine. A CT scan of the chest was obtained on 07/03/2023 revealed a 4.8 cm lobulated anterior mediastinal mass consistent with a thymoma. She then met with Dr. Turner in thoracic surgery for further evaluation and treatment recommendationsafter discussing her options, she was brought to the OR on 09/13/2023 where she underwent bilateral robotic assisted VATS total thymectomy without incident. Pathology revealed 4.5 cm of Type AB thymomawith microscopic transcapsular invasion into thymic or perithymic [...] has 2 children, and lives in the [place], [place] area. 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 She denies any tobacco use and usedto consume alcohol occasionally. RADIATION HISTORY: The patient [...] 53-year-old woman recently diagnosed with Stage I, [id number] (AJCC)/Stage IIa ([place]) thymoma (Type AB) status post bilateral robotic- assisted VATS total thymectomy on 09/13/[address] [...] her neurology team as scheduled for continued postoperativecare and evaluation. The patient and her spouse [...] which included preparing to see the patient, [id number] patient care, and counseling and educating the patient/family/caregiver. This document has been created with the use of voice recognition technology. It may contain inaccuracies, misspellings, inaccurate syntax or inappropriate word context that are a result of the inadequacies/shortcomings of said technology/software. documented in this encounterGeorgetown Behavioral Hospital04-04-2024 Nurse Note* Zaira Vines LPN - 10/11/2023 12:59 PM EDT Pacemaker/Defibrillator?N Previous Cancer(s)?N Previous Radiation?N Lupus/Scleroderma?N On body monitoring device?N documented in this encounterGeorgetown Behavioral Hospital03-20-2024 Miscellaneous Notes* Telephone Encounter - Kandi Luna RN - 09/26/2023 5:26 PM EDT see letters. RTW on 10/15/2022 Kandi Luna RN, BSN, HCMBA documented in this encounterGeorgetown Behavioral Hospital03-15-2024 Instructions* Patient Instructions* Kandy Vallecillo APRN.TOE STRIPPER - 09/21/2023 4:12 PM EDT -Shower regularly [...] 4 weeks after surgery. Do not perform materials scheduler such as laundry and vacuuming. Do not [...] maneuver a motor vehicle. documented in this encounterGeorgetown Behavioral Hospital03-15-2024 History of Present illness Narrative* Kandy Vallecillo APRN.CNP - 09/21/2023 4:06 PM EDT Images from the original note were not included. [facility] - OUTPATIENT THORACIC SURGERY CLINIC NOTE PT NAME: Marnie Arana [facility] NO: [id number] THORACIC SURGEON: Jasiel Turner M.D. DATE OF [...] vision, symptoms began 05/2023. 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 and [...] cm (5' 3 ) Wt 95.9 kg (211lb 8 oz) SpO2 97% BMI 37.47 kg/m [...] with Dr Trinh, f/u 10/29/23 Kandy Vallecillo APRN.TOE STRIPPER documented in this encounterGeorgetown Behavioral Hospital03-15-2024 History of Present illness Narrative* Yoselin Santillan RT(R) - 09/21/2023 3:00 PM EDT Radiology Service Progress Note PATIENT NAME: Marnie [...] PATIENT PRESENTS WITH AN IMPLANTABLE OR ATTACHED PMO PROJECT MANAGER: No RADIOLOGY DEPARTMENT: General X-ray: Exam(s) Completed: Chest X-Ray PERIPHERAL IV DATA: Not applicable SIGNED BY: RT Pura(R) September 21, 2023 3:12 PM documented in this encounterGeorgetown Behavioral Hospital03-15-2024 Miscellaneous Notes* Telephone Encounter - Kandi Luna RN - 09/21/2023 1:24 PM EDT FMLA paperwork completed and returned to administrative asst for disbursement Off duty 09/12/2023 RTW 10/16/2023 Kandi Luna RN, BSN, [facility] Thoracic Nurse Practice Mgr * Telephone Encounter - Cheko Bernstein Morenita - 08/31/2023 12:11 PM EST Received [facility] paperwork for patient. Paperwork given to Thoracic NPM for completion. After completion, paperwork is to be faxed to Attn: HR Kyle Martinez. Signed PHI release attached Unknown Dates: 08/06/23 Consult - Referring provider: Ana María Mckeon MD Diagnosis: Myasthenia gravis 09-12-23 Pre-Op 09-13-23 Surgery: ICD-10: G70.00 CPT: 38660 Morenita Still Adm documented in this encounterGeorgetown Behavioral Hospital03-15-2024 Miscellaneous Notes* Telephone Encounter - Carley Vick RN - 09/21/2023 9:50 AM EDT We are calling to check on how you are doing since our last phone call. Are you having any medical concerns we can help you with today? -No new medical concerns today. Call Outcome: All Clear All clear and closing statement given. PD RN verified patients name and date of . Carley Vick RN documented in this encounterGeorgetown Behavioral Hospital03-11-2024 Miscellaneous Notes* Telephone Encounter - Toma Eid RN - 09/17/2023 1:50 PM EDT Transition of Care Additional Questions/Concerns Requiring PCP [...] Discharge Specialty: Endocrine [facility] of Discharging [facility] Date of Facility Discharge: 09/15/23 Date of Interactive Contact and Name of Rn Wound: Spoke with Yaneth on 09/18/23 Medication Review [...] little better each day Following up with [facility] care team Education Provided by ACN to Support Self-Management, Independent Living and ADLs: Take medications as prescribed Post op complications and risk of infection; when to call MD For severe postoperative pain, you will be provided with a 7-day prescription for oxycodone at timeof discharge. You may also take tylenol 650-1000 [...] Contact phone number for next two weeks: [phone] (home) Primary service: Thoracic Surgery Patient verbalized understanding CN contact information for Toma Eid RN given. Communication with Home Health Agencies and Other Services Utilized/Needed by the Patient: NA documented in this encounterMount [facility]ut[facility]24 Telephone encounter Note* Telephone Encounter - Toma Eid RN - 09/17/2023 1:50 PM EDT Transition of Care Additional Questions/Concerns Requiring PCP [...] Discharge Specialty: Endocrine Name of Discharging Facility: [facility] Date of Facility Discharge: 09/15/23 Date of Interactive Contact and Name of Rn Wound: Spoke with Yaneth on 09/18/23 Medication Review [...] little better each day Following up with [facility] care team Education Provided by ACN to Support Self-Management, Independent Living and ADLs: Take medications as prescribed Post op complications and risk of infection; when to call MD For severe postoperative pain, you will be provided with a 7-day prescription for oxycodone at timeof discharge. You may also take tylenol 650-1000 [...] Contact phone number for next two weeks: [phone] (home) Primary service: Thoracic Surgery Patient verbalized understanding CN contact information for Toma Eid RN given. Communication with Home Health Agencies and Other Services Utilized/Needed by the Patient: NA [facility] [employer] Work Phone: 1(105) 248-265103-11-2024 Miscellaneous Notes* Telephone Encounter - Chris Busby RN - 09/17/2023 10:25 AM EDT 1. Have you noticed any increase in [...] given. Chris Busby RN documented in this encounterGeorgetown Behavioral Hospital03-06-2024 History of Present illness Narrative* Jasiel Turner MD - 09/12/2023 2:46 PM EST I have read and reviewed the documentation and agree. I wish to add the followingI wish to add the following findings which will be communicated back to the requesting physician. Jasiel Turner MD [facility] STAFF PHYSICIAN NOTE OF PERSONAL [...] 2023 TIME OF SERVICE: 2:46 PM ' * Kailee Polo RN - 09/12/2023 2:09 PM EST CBC was not done at preop lab appt. and anaesthesia (Dr.Katherine Gato MD) - ok without CBC. Kailee Polo RN * Jasiel Turner MD - 09/12/2023 1:50 PM EST CHART COPY DO NOT DISCARD . Patient [...] Will have to check with her neurologist aboutthe need for plasmapheresis pre-op given the absence [...] 07/03/2023 and CXR 09/12/2023 . Kailee Polo, AGATHA PHYSICAL EXAM BP 142/69 Pulse 77 [...] reviewed Jasiel Turner MD documented in this encounterGeorgetown Behavioral Hospital03-06-2024 History of Present illness Narrative* Qi Hoskins MD - 09/12/2023 2:20 PM EST Cardiothoracic Anesthesiology Preoperative Assessment Service Date: 09/12/2023 [...] note, symptoms began 05/2023 and are limited todouble vision primarily in the afternoon, with no [...] swab twice the day before surgery and oncethe morning of surgery. Dispense: 22 g Refill: [...] and consent discussed: yes. Patient / Responsible Alliance Party agrees to proceed: yes Patient / Surrogate agrees to blood products: Yes Instructions Given to Patient: Instructions located in the after visit summary. Patient given verbal and written preop instructions and voices comprehension and compliance. Signature: Qi Hoskins MD Patient Name: Marnie Arana Date: September 12, 2023 Time: 11:32 AM Pager/Contact #: documented in this encounterGeorgetown Behavioral Hospital03-06-2024 History of Present illness Narrative* Yoselin Santillan RT(R) - 09/12/2023 12:30 PM EST Radiology Service Progress Note PATIENT NAME: Marnie [...] PATIENT PRESENTS WITH AN IMPLANTABLE OR ATTACHED PMO PROJECT MANAGER: No RADIOLOGY DEPARTMENT: General X-ray: Exam(s) Completed: Chest X-Ray PERIPHERAL IV DATA: Not applicable SIGNED BY: RT Pura(Carlos) September 12, 2023 12:11 PM documented in this encounterGeorgetown Behavioral Hospital02-28-2024 History of Present illness Narrative* Cristian Teixeira, VIVIAN-TOE STRIPPER - 09/05/2023 3:00 PM EST Images from the original note were not included. [address] [facility] [id number] Subjective: Marnie Arana is a 53 y.o. [...] Problem List Diagnosis Date Noted Myasthenia gravis ([facility]) 06/13/2023 History reviewed. No pertinent past medical [...] for this visit: Wellness examination Myasthenia gravis ([facility]) Plan Outpatient Medications Prior to Visit Medication [...] 5.)Labs not due 6.)Patient to present to [facility] for thymectomy. SO Briones 09/05/23 1530 documented in this encounterProMedica Health [id number] Miscellaneous Notes* Allied Health - Shobha Huntley RT(R) - 08/28/2023 10:20 AM EST Radiology Service Progress Note DATE OF [...] PATIENT PRESENTS WITH AN IMPLANTABLE OR ATTACHED PMO PROJECT MANAGER: No ALLERGIES: Reviewed and unchanged CONTRAST ALLERGY: NO. EXAM: MRI - CONTRAST TYPE: GROUP II PERIPHERAL IV DATA: Ambulatory: A peripheral IV was started in the Right with a Angio cath: 24 gauge. RADIOLOGY DEPARTMENT: MR; Exam(s) Completed: Body: Liver (routine) SIGNATURE: RT Jonathan(R), RT Angelica(R) PATIENT NAME: Marnie Arana DATE: August 28, 2023 TIME: 10:29 AM documented in this encounterGeorgetown Behavioral Hospital02-16-2024 History of Present illness Narrative* Kandi Luna RN - 08/24/2023 3:57 PM EST Surgery : Robotic b/l thymectomy OR 09/13/2023 [...] to office for completion documented in this encounterGeorgetown Behavioral Hospital02-09-2024 History of Present illness Narrative* Anne Welch MD - 08/17/2023 8:00 AM EST Images from the original note were not included. VIRTUAL VISIT PROGRESS NOTE This is a virtual visit using [employer] Zoom Video Visit. It required patient- provider interaction for the medical decision making as documented below. I have communicated my name and active licensure. The patient's identity and physical location wereverified at the time of this visit. Either the patient or their legal distribution sales representative has been informed of the risks and benefits of -- and alternatives to -- treatment through a remote evaluation andconsents to proceed with the evaluation remotely. Marnie [...] in the eyeglasses for a month, but thenworse again. Meds are being adjusted. Not on [...] CT CHEST W CONT INDICATION: Myasthenia gravis ([facility]). TECHNIQUE: * Contiguous axial CT images [...] Last Resulted: 07/03/23 4:08 PM Received From: [employer] Result Received: 08/06/23 6:39 AM ASSESSMENT/PLAN: 53 [...] be associated with thymic hyperplasia. Latter usually resolves/improveswith treating hyperthyroidism, and patients do not usually require surgery. Initial thyroid labs, as above, certainly are not c/w hyperthyroidism that would suggest Graves, but would repeat with antibodies. F/U TBD. Anne Welch MD documented in this encounterGeorgetown Behavioral Hospital07-14-2021 NoteOPERATIVE NOTE OPERATION DATE: 01-19-21 ANESTHETIC:Monitored anesthesia care. [...] in 10 years for screening. cc:Dr. Adorno. [facility] Signed and Approved by: DR ODELL JOHNSON . 01/21/2021 08:06:00[facility]07-08-2021 NoteChief Complaint referral for colonsocopy HPI Staff 50 [...] swallowing difficulties, no hearing loss, no ear infection(s),no nose bleeds. Cardiovascular: normal blood pressure, no [...] of colon) plan colonoscopy under anesthesia at [facility], informed consent obtained. Follow-up No qualifying data available Patient Education Colonoscopy Problem List/Past Medical History Ongoing BMI 36.0-36.9,adult Screening for malignant neoplasm of colon Historical Granulation tissue Vaginal polyp Procedure/Surgical History Arthroscopy of knee, Ectopic , Ganglion cyst of left wrist, Total hysterectomy via vaginalapproach. Medications No active medications Allergies No Known Allergies Social History Alcohol - Denies Alcohol Use, 01/12/2021 Tobacco - Denies Tobacco Use, 01/12/2021 Never (less than 100 in lifetime) Tobacco Use:. Never Smokeless Tobacco Use:., 01/13/2021 Family History Primary malignant neoplasm of brain: Mother. Immunizations Vaccine Date Status SARS-CoV-2 (COVID-19) mRNA-1273 vaccine 10/01/2020 Recorded SARS-CoV-2 (COVID-19) mRNA-1273 vaccine 09/01/2020 RecordedFirelands [facility] CampusComment on above:Result Comment: Electronically Signed By: ALEX CARVRE, Odell Good\Date and Time Signed: 01/13/21 10:26 EDTEvaluation note* Diagnosis Myasthenia gravis (HCC)- Primary Myasthenia gravis without exacerbation Preoperative testing Preoperative examination, unspecified Pre-procedure lab exam Pre-procedural laboratory examination documented in this encounter [facility]* Diagnosis Mediastinal mass Swelling, mass, or lump in chest Lesion of liver Other specified disorders of liver Myasthenia gravis (HCC) Myasthenia gravis without exacerbation documented in this encounter [facility]* Diagnosis Encounter for preoperative anesthesiology assessment for thoracic surgery- Primary Myasthenia gravis (HCC) Myasthenia gravis without exacerbation [facility] Myasthenia gravis (HCC)- Primary Myasthenia gravis without exacerbation Benign neoplasm of thymus Myasthenia gravis (HCC) Myasthenia gravis without exacerbation [facility]* Diagnosis Myasthenia gravis (HCC) Myasthenia gravis without exacerbation Preoperative testing Preoperative examination, unspecified Pre-procedure lab exam Pre-procedural laboratory examination documented in this encounter [facility]* Diagnosis Myasthenia gravis (HCC)- Primary Myasthenia gravis without exacerbation Thymoma Benign neoplasm of thymus [facility]* Diagnosis Follow-up examination following surgery Follow-up examination, following unspecified surgery [facility] Diagnosis Multiple thyroid nodules Nontoxic multinodular goiter [facility]* Diagnosis Thymoma- Primary Benign neoplasm of thymus [facility]* Diagnosis Thymoma- Primary Benign neoplasm of thymus [facility]* Diagnosis Thymoma- Primary Benign neoplasm of thymus [facility]* Diagnosis 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 thymus Myasthenia gravis (HCC) Myasthenia gravis without exacerbation [facility]* Diagnosis Myasthenia gravis (HCC) Myasthenia gravis without exacerbation Thymoma Benign neoplasm of thymus [facility]* Diagnosis Myasthenia gravis (HCC)- Primary Myasthenia gravis without exacerbation [facility]* Diagnosis Thymoma- Primary Benign neoplasm of thymus [facility]* Diagnosis Thymoma- Primary Benign neoplasm of thymus [facility]* Diagnosis Thymoma- Primary Benign neoplasm of thymus [facility]* Diagnosis Myasthenia gravis (HCC) Myasthenia gravis without exacerbation Postoperative pain Other acute postoperative pain Thymoma Benign neoplasm of thymus [facility]* Diagnosis Thymoma- Primary Benign neoplasm of thymus documented in this encounter [facility]* Diagnosis Thymoma- Primary Benign neoplasm of thymus [facility] Diagnosis Myasthenia gravis (HCC)- Primary Myasthenia gravis without exacerbation [facility] Diagnosis Malignant neoplasm of thymus (HCC) Malignant neoplasm of thymus [facility] Diagnosis Well woman exam with routine gynecological exam Routine gynecological examination Breast cancer screening by mammogram Postmenopausal state Asymptomatic postmenopausal status (age-related) (natural) [facility] Diagnosis 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 thymus Thymoma Benign neoplasm of thymus [facility] Diagnosis Myasthenia gravis (HCC)- Primary Myasthenia gravis without exacerbation [facility] Diagnosis Malignant neoplasm of thymus (HCC) Malignant neoplasm of thymus [facility] Diagnosis Thymoma- Primary Benign neoplasm of thymus documented [facility] Diagnosis Abnormal results of thyroid function studies- Primary Nonspecific abnormal results of thyroid function study Mediastinal mass Swelling, mass, or lump in chest Myasthenia gravis (HCC) Myasthenia gravis without exacerbation Multiple thyroid nodules Nontoxic multinodular goiter [facility] Diagnosis Myasthenia gravis (CMS/HCC)- Primary Myasthenia gravis without exacerbation Thymoma Benign neoplasm of thymus [facility] Diagnosis Wellness examination- Primary Myasthenia gravis (CMS-HCC) Myasthenia gravis without exacerbation [facility] Diagnosis Myasthenia gravis (CMS-HCC)- Primary Myasthenia gravis without exacerbation Thymoma Benign neoplasm of thymus [facility] Diagnosis Myasthenia gravis (CMS-HCC)- Primary Myasthenia gravis without exacerbation Thymoma Benign neoplasm of thymus Acute non-recurrent maxillary sinusitis [facility] Diagnosis Wellness examination- Primary Myasthenia gravis (CMS-HCC) Myasthenia gravis without exacerbation Thymoma Benign neoplasm of thymus [facility] Diagnosis Acute right ankle pain- Primary Myasthenia gravis ([facility]-H[facility]) Myasthenia gravis without exacerbation [facility] Diagnosis Posterior tibial tendinitis of right lower extremity- Primary Valgus deformity, not elsewhere classified, right ankle Equinus contracture of right ankle Right foot pain Pain in soft tissues of limb Difficulty walking Difficulty in walking Instability of right ankle joint [facility]* Diagnosis Well woman exam with routine gynecological exam Routine gynecological examination Encounter for screening mammogram for malignant neoplasm of breast Postmenopausal state Asymptomatic postmenopausal status (age-related) (natural) documented [facility]* Attachments The following attachments cannot be sent through Care Everywhere. * Myasthenia gravis (Lithuanian) * Yearly Physical for Adults (Lithuanian) [facility]ructionsNot on file documented in [facility] encounterC[facility]* Attachments The following attachments cannot be sent through Care Everywhere. * Myasthenia Gravis (Lithuanian) [facility] Attachments The following attachments cannot be sent through Care Everywhere. * Myasthenia gravis (Lithuanian) [facility]* Attachments The following attachments cannot be sent through Care Everywhere. * Myasthenia gravis (Lithuanian) [facility]* Attachments The following attachments cannot be sent through Care Everywhere. * Managing acute pain at home (Lithuanian) documented in [facility] encounterC[facility] HospitalReason for referral (narrative)* Outpatient Procedure (Routine) - Pending ReviewSpecialtyDiagnoses / ProceduresReferred By ContactReferred To [facility] Diagnoses Myasthenia gravis (HCC) Preoperative testing Pre-procedure lab exam Procedures ECHO ECHO TTHRC R-T 2D W/WOM-MODE COMPL SPEC&COLR D Jasiel Turner MD [address] [place] [address] [facility] [address] [place] [address] Referral IDStatusReasonStart DateExpiration DateVisits RequestedVisits [id number] Review Auto-Generated Referral * Outpatient Procedure (Urgent) - Pending ReviewSpecialtyDiagnoses / Procedures Referred By ContactReferred To [facility] Diagnoses Myasthenia gravis (HCC) Preoperative testing Pre-procedure lab exam Procedures ECG COMPLETE ECG ROUTINE ECG W/LEAST 12 LDS W/I&R Jasiel Turner MD [address] [place] [address] [facility] [place] [address] Referral IDStatusReasonStart DateExpiration DateVisits RequestedVisits [id number] Review Auto-Generated Referral [facility] for referral (narrative)* Diagnostic Procedure Only (Routine) - AuthorizedSpecialtyDiagnoses / ProceduresReferred By Contact Referred To [facility]US [facility]AG[facility] Diagnoses Multiple thyroid nodules Procedures US THYROID/PARATHYROID US SOFT TISSUE HEAD & NECK REAL TIME IMGE Anne Johns MD [address] [place] [address] Us Imaging [id number] Referral IDStatusReasonStart DateExpiration DateVisits RequestedVisits [id number] Auto-Generated Referral / [facility] for visit Narrative* Diagnostic Procedure Only (Routine) - ClosedSpecialtyDiagnoses / ProceduresReferred By ContactReferred To Contact US IMAGING Diagnoses Multiple thyroid nodules Procedures US THYROID/PARATHYROID US SOFT TISSUE HEAD & NECK REAL TIME IMGE Anne Johns MD [address] [place] [address] [place] [address] Referral IDStatusReasonStart DateExpiration DateVisits RequestedVisits [id number] Auto-Generated Referral / [facility] Summary Purpose Family History No Family History Records FoundNo Family History Records FoundNo Family History Records FoundNo Family History Records FoundNo Family History Records FoundNo Family History Records FoundNo Family History Records Found Advance Directives TypeDate RecordedPatient RepresentativeExplanationAdvance Directive(s)09/12/2023 2:51 PMTypeDate RecordedPatient RepresentativeExplanationAdvance Directive(s) 09/12/2023 2:51 PM Reason for Referral SpecialtyDiagnoses / ProceduresReferred By ContactReferred To ContactMR IMAGING Diagnoses Mediastinal mass Lesion of liver Procedures MRI LIVER WO/W IVCON MRI ABDOMEN W/O & W/CONTRAST MATERIAL Jasiel Turner MD [address] [place] [address] Mr Imaging [place] [address] Referral IDStatusReasonStart DateExpiration DateVisits RequestedVisits [id number] Auto-Generated Referral /[id number] / ProceduresReferred By ContactReferred To ContactCT IMAGING Diagnoses Malignant neoplasm of thymus (HCC) Procedures CT CHEST W IVCON DIAGNOSTIC COMPUTED TOMOGRAPHY THORAX W/CONTRAST Zeferino Desouza MD [address] [place] [address] [place] [address] Ct Imaging [place] [address] Referral IDStatusReasonStart DateExpiration DateVisits RequestedVisits [id number] Auto-Generated Referral /[id number] / ProceduresReferred By ContactReferred To ContactCT IMAGING Diagnoses Malignant neoplasm of thymus (HCC) Procedures CT CHEST W IVCON DIAGNOSTIC COMPUTED TOMOGRAPHY THORAX W/CONTRAST Kandy Vallecillo APRN.ISABELL [address] [place] [address] Ct Imaging [place] [address] Referral IDStatusReasonStart DateExpiration DateVisits RequestedVisits [id number] Auto-Generated Referral 4/1Referral IDStatusReasonStart DateExpiration DateVisits RequestedVisits [id number] Review Auto-Generated Referral 1Referral IDStatusReasonStart DateExpiration DateVisits RequestedVisits [id number] Auto-Generated Referral Additional Source Comments INFORMATION SOURCE (unrecogn ized section and content) DATE CREATED AUTHOR 04/22/2021 [facility] DATE CREATED AUTHOR AUTHOR'S ORGANIZ ATION 06/29/2021 [facility] DATE CREATED AUTHOR AUTHOR'S ORGANIZ ATION 08/29/2023 [facility] DATE CREATED AUTHOR AUTHOR'S ORGANIZ ATION 10/12/2024 [facility] DATE CREATED AUTHOR AUTHOR'S ORGANIZ ATION 12/03/2024 [facility] DATE CREATED AUTHOR AUTHOR'S ORGANIZ ATION 02/14/2025 [facility] DATE CREATED AUTHOR AUTHOR'S ORGANIZ ATION 04/20/2025 [facility] EPIC Source Comments (unrecognize d section and content) In the event this informatio n is protected by the Federal Confidentiality of Alcohol and Drug Abuse Patient Records regulations: The Federal rules restrict any use of the information to criminally investigate or prosecute any alcohol or drug abuse patient.[facility] the event this information is protected by the Federal Confidentiality of Alcohol and Drug Abuse Patient Records regulations: The Federal rules restrict any use of the information to criminally investigate or prosecute any alcohol or drug abuse patient.[facility] HospitalIn the event this information is protected by the Federal Confidentiality of Alcohol and Drug Abuse Patient Records regulations: The Federal rules restrict any use of the information to criminally investigate or prosecute any alcohol or drug abuse patient.[facility] HospitalIn the event this information is protected by the Federal Confidentiality of Alcohol and Drug Abuse Patient Records regulations: The Federal rules restrict any use of the information to criminally investigate or prosecute any alcohol or drug abuse patient.[facility] HospitalIn the event this information is protected by the Federal Confidentiality of Alcohol and Drug Abuse Patient Records regulations: The Federal rules restrict any use of the information to criminally investigate or prosecute any alcohol or drug abuse patient.[facility] HospitalIn the event this information is protected by the Federal Confidentiality of Alcohol and Drug Abuse Patient Records regulations: The Federal rules restrict any use of the information to criminally investigate or prosecute any alcohol or drug abuse patient.[facility] HospitalIn the event this information is protected by the Federal Confidentiality of Alcohol and Drug Abuse Patient Records regulations: The Federal rules restrict any use of the information to criminally investigate or prosecute any alcohol or drug abuse patient.[facility] HospitalIn the event this information is protected by the Federal Confidentiality of Alcohol and Drug Abuse Patient Records regulations: The Federal rules restrict any use of the information to criminally investigate or prosecute any alcohol or drug abuse patient.[facility] HospitalIn the event this information is protected by the Federal Confidentiality of Alcohol and Drug Abuse Patient Records regulations: The Federal rules restrict any use of the information to criminally investigate or prosecute any alcohol or drug abuse patient.[facility] HospitalIn the event this information is protected by the Federal Confidentiality of Alcohol and Drug Abuse Patient Records regulations: The Federal rules restrict any use of the information to criminally investigate or prosecute any alcohol or drug abuse patient.[facility] HospitalIn the event this information is protected by the Federal Confidentiality of Alcohol and Drug Abuse Patient Records regulations: The Federal rules restrict any use of the information to criminally investigate or prosecute any alcohol or drug abuse patient.[facility] HospitalIn the event this information is protected by the Federal Confidentiality of Alcohol and Drug Abuse Patient Records regulations: The Federal rules restrict any use of the information to criminally investigate or prosecute any alcohol or drug abuse patient.[facility] HospitalIn the event this information is protected by the Federal Confidentiality of Alcohol and Drug Abuse Patient Records regulations: The Federal rules restrict any use of the information to criminally investigate or prosecute any alcohol or drug abuse patient.[facility] HospitalIn the event this information is protected by the Federal Confidentiality of Alcohol and Drug Abuse Patient Records regulations: The Federal rules restrict any use of the information to criminally investigate or prosecute any alcohol or drug abuse patient.[facility] HospitalIn the event this information is protected by the Federal Confidentiality of Alcohol and Drug Abuse Patient Records regulations: The Federal rules restrict any use of the information to criminally investigate or prosecute any alcohol or drug abuse patient.[facility] HospitalIn the event this information is protected by the Federal Confidentiality of Alcohol and Drug Abuse Patient Records regulations: The Federal rules restrict any use of the information to criminally investigate or prosecute any alcohol or drug abuse patient.[facility] HospitalIn the event this information is protected by the Federal Confidentiality of Alcohol and Drug Abuse Patient Records regulations: The Federal rules restrict any use of the information to criminally investigate or prosecute any alcohol or drug abuse patient.[facility] HospitalIn the event this information is protected by the Federal Confidentiality of Alcohol and Drug Abuse Patient Records regulations: The Federal rules restrict any use of the information to criminally investigate or prosecute any alcohol or drug abuse patient.[facility] HospitalIn the event this information is protected by the Federal Confidentiality of Alcohol and Drug Abuse Patient Records regulations: The Federal rules restrict any use of the information to criminally investigate or prosecute any alcohol or drug abuse patient.[facility] HospitalIn the event this information is protected by the Federal Confidentiality of Alcohol and Drug Abuse Patient Records regulations: The Federal rules restrict any use of the information to criminally investigate or prosecute any alcohol or drug abuse patient.[facility] HospitalIn the event this information is protected by the Federal Confidentiality of Alcohol and Drug Abuse Patient Records regulations: The Federal rules restrict any use of the information to criminally investigate or prosecute any alcohol or drug abuse patient.[facility] HospitalIn the event this information is protected by the Federal Confidentiality of Alcohol and Drug Abuse Patient Records regulations: The Federal rules restrict any use of the information to criminally investigate or prosecute any alcohol or drug abuse patient.[facility] HospitalIn the event this information is protected by the Federal Confidentiality of Alcohol and Drug Abuse Patient Records regulations: The Federal rules restrict any use of the information to criminally investigate or prosecute any alcohol or drug abuse patient.[facility] HospitalIn the event this information is protected by the Federal Confidentiality of Alcohol and Drug Abuse Patient Records regulations: The Federal rules restrict any use of the information to criminally investigate or prosecute any alcohol or drug abuse patient.[facility] HospitalIn the event this information is protected by the Federal Confidentiality of Alcohol and Drug Abuse Patient Records regulations: The Federal rules restrict any use of the information to criminally investigate or prosecute any alcohol or drug abuse patient.[facility] HospitalIn the event this information is protected by the Federal Confidentiality of Alcohol and Drug Abuse Patient Records regulations: The Federal rules restrict any use of the information to criminally investigate or prosecute any alcohol or drug abuse patient.[facility] HospitalIn the event this information is protected by the Federal Confidentiality of Alcohol and Drug Abuse Patient Records regulations: The Federal rules restrict any use of the information to criminally investigate or prosecute any alcohol or drug abuse patient.[facility] HospitalIn the event this information is protected by the Federal Confidentiality of Alcohol and Drug Abuse Patient Records regulations: The Federal rules restrict any use of the information to criminally investigate or prosecute any alcohol or drug abuse patient.[facility] HospitalIn the event this information is protected by the Federal Confidentiality of Alcohol and Drug Abuse Patient Records regulations: The Federal rules restrict any use of the information to criminally investigate or prosecute any alcohol or drug abuse patient.[facility] HospitalIn the event this information is protected by the Federal Confidentiality of Alcohol and Drug Abuse Patient Records regulations: The Federal rules restrict any use of the information to criminally investigate or prosecute any alcohol or drug abuse patient.[facility] HospitalIn the event this information is protected by the Federal Confidentiality of Alcohol and Drug Abuse Patient Records regulations: The Federal rules restrict any use of the information to criminally investigate or prosecute any alcohol or drug abuse patient.[facility] HospitalIn the event this information is protected by the Federal Confidentiality of Alcohol and Drug Abuse Patient Records regulations: The Federal rules restrict any use of the information to criminally investigate or prosecute any alcohol or drug abuse patient.[facility] HospitalIn the event this information is protected by the Federal Confidentiality of Alcohol and Drug Abuse Patient Records regulations: The Federal rules restrict any use of the information to criminally investigate or prosecute any alcohol or drug abuse patient.[facility] HospitalIn the event this information is protected by the Federal Confidentiality of Alcohol and Drug Abuse Patient Records regulations: The Federal rules restrict any use of the information to criminally investigate or prosecute any alcohol or drug abuse patient.[facility] HospitalIn the event this information is protected by the Federal Confidentiality of Alcohol and Drug Abuse Patient Records regulations: The Federal rules restrict any use of the information to criminally investigate or prosecute any alcohol or drug abuse patient.[facility] HospitalIn the event this information is protected by the Federal Confidentiality of Alcohol and Drug Abuse Patient Records regulations: The Federal rules restrict any use of the information to criminally investigate or prosecute any alcohol or drug abuse patient.[facility] HospitalIn the event this information is protected by the Federal Confidentiality of Alcohol and Drug Abuse Patient Records regulations: The Federal rules restrict any use of the information to criminally investigate or prosecute any alcohol or drug abuse patient.[facility] HospitalIn the event this information is protected by the Federal Confidentiality of Alcohol and Drug Abuse Patient Records regulations: The Federal rules restrict any use of the information to criminally investigate or prosecute any alcohol or drug abuse patient.[facility] HospitalIn the event this information is protected by the Federal Confidentiality of Alcohol and Drug Abuse Patient Records regulations: The Federal rules restrict any use of the information to criminally investigate or prosecute any alcohol or drug abuse patient.[facility] HospitalIn the event this information is protected by the Federal Confidentiality of Alcohol and Drug Abuse Patient Records regulations: The Federal rules restrict any use of the information to criminally investigate or prosecute any alcohol or drug abuse patient.[facility] HospitalIn the event this information is protected by the Federal Confidentiality of Alcohol and Drug Abuse Patient Records regulations: The Federal rules restrict any use of the information to criminally investigate or prosecute any alcohol or drug abuse patient.[facility] Reason for Visit (unrecogniz ed section and content) ReasonCommentsSchedule SurgeryRobotic b/l thymectomySpecialtyDiagnoses / ProceduresReferred By ContactReferred To ContactMR IMAGING Diagnoses Mediastinal mass Lesion of liver Procedures MRI LIVER WO/W IVCON MRI ABDOMEN W/O & W/CONTRAST MATERIAL Jasiel Turner MD [address] [place] [address] Mr Imaging [place] [address] Referral IDStatusReasonStart DateExpiration DateVisits RequestedVisits [id number] Auto-Generated Referral /[id number]-Hq ExamReasonCommentsRadio Main [id number] CommentsFollow Up Phone CallRC f/u all clearReasonCommentsFollow Up Phone CallRC follow up call all clear.ReasonCommentsFMLA PaperworkReasonCommentsReturn To Work LetterReasonCommentsPatient EducationReasonCommentsConsultSpecialty Diagnoses / ProceduresReferred By ContactReferred To ContactRadiation Oncology Diagnoses Thymoma Procedures RAD/ONC CONSULT OFFICE/OUTPATIENT [facility] 60 MINUTES Kandy Vallecillo, VIVIAN.TOE STRIPPER [address] [place] [id number] Referral IDStatusReasonStart DateExpiration DateVisits RequestedVisits [id number] PCP Requested Referral /[id number] PatientReasonCommentsEstablished PatientReasonCommentsRadiotherapy On-treatment VisitReasonCommentsPatient Update Post Radiation Nurse CallReasonCommentsthymomaFollow upSpecialtyDiagnoses / ProceduresReferred By ContactReferred To ContactRadiation Oncology / RADIATION ONCOLOGY Diagnoses Malignant neoplasm of anterior mediastinum SIM treating chest with IV contrast, 4DCT IMRT 27 FX plus sim Procedures INTENSITY MODULATED RADIATION TX DLVR COMPLEX SIMULATION SONDRA IMRT 27 FX plus sim Zeferino Desouza MD [address] [place] [address] [address] [place] [id number] Zeferino Desouza MD [address] [place] [address] [address] [place] [id number] Referral IDStatusReasonStart DateExpiration DateVisits RequestedVisits [id number]/22/[id number]/[id number] CTSpecialty Diagnoses / ProceduresReferred By ContactReferred To ContactCT IMAGING Diagnoses Malignant neoplasm of thymus (HCC) Procedures CT CHEST W IVCON DIAGNOSTIC COMPUTED TOMOGRAPHY THORAX W/CONTRAST Zeferino Desouza MD [address] [place] [address] [address] [place] [id number] Ct [facility] [place] [address] Referral IDStatusReasonStcedarville DateExpiration DateVisits RequestedVisits [id number] Auto-Generated Referral /[id number] Women VisitReasonCommentsEstablished PatientFollow UpSpecialtyDiagnoses / ProceduresReferred By ContactReferred To ContactCT IMAGING Diagnoses Malignant neoplasm of thymus (HCC) Procedures CT CHEST W IVCON DIAGNOSTIC COMPUTED TOMOGRAPHY THORAX W/CONTRAST Kandy Vallecillo, 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.TOE STRIPPER [address] [place] [address] [facility] [place] [address] Referral IDStatusReasonStart DateExpiration DateVisits RequestedVisits [id number] Auto-Generated Referral /[id number] UpSpecialty Diagnoses / ProceduresReferred By ContactReferred To Contact Diagnoses Mediastinal mass Myasthenia gravis (HCC) Multiple thyroid nodules Procedures CONSULT TO ENDOCRINE SURGERY OFFICE/OUTPATIENT [facility] 60 MINUTES Jasiel Turner MD [address] [place] [address] Referral IDStatusReasonStart DateExpiration DateVisits RequestedVisits [id number] PCP Requested Referral /[id number] ExamReasonOnset DateCommentsTransition Of Care4ReasonCommentsFollow-upReasonCommentsNasal CongestionReason CommentsAnkle PainReasonCommentsAnkle Pain54 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 Patient changed shoe gear. Patient relates increased pain with increased activity. NKI. No other treatments tried thus far. SS: 8-8.5 SpecialtyDiagnoses / ProceduresReferred By ContactReferred To ContactPodiatry Diagnoses Acute right ankle pain Procedures 221 ([email or web address].ID) - Ambulatory referral to Podiatry Cristian Teixeira NP [address] [place] [address] Phone: tel: fax: nEder Treviño, DPM [address] [place] [address] Phone: tel: fax: Referral IDStatusReasonStart DateExpiration DateVisits RequestedVisits [id number]/6/202511/ Care Teams (unrecognized sec tion and content) Team MemberRelationshipSpecialtyStart DateEnd Date Claire De Los Santos DO [address] [place] [phone] PCP - GeneralNeurology1/09/29Team MemberRelationshipSpecialtyStart DateEnd Date Ana María Mckeon [address] [place] [address] PCP - GeneralFamily Medicine08/28/23Team MemberRelationshipSpecialtyStart DateEnd Date Ana María Sims [address] [place] [address] PCP - [facility]08/28/23 de Ana María Sims [address] [place] [address] [facility]08/31/23Team MemberRelationshipSpecialtyStart DateEnd Date Ana María Sims [address] [place] [address] PCP - [facility]08/28/23 de Ana María Sims [address] [place] [address] [facility]08/31/23Team MemberRelationshipSpecialtyStart DateEnd Date Ana María Sims [address] [place] [address] PCP - [facility]08/28/23 de Ana María Sims [address] [place] [address] [facility] Medicine08/31/23Team MemberRelationshipSpecialtyStart DateEnd Date Ana María Sims [address] [place] [address] PCP - [facility]08/28/23 de Ana María Sims [address] [place] [address] [facility]erring[facility]08/31/23Team MemberRelationshipSpecialtyStart DateEnd Date de Ana María Sims [address] [place] [address] PCP - [facility]08/28/23 de Ana María Sims [address] [place] [address] [facility]erring[facility] Medicine08/31/23Team MemberRelationshipSpecialtyStart DateEnd Date Ana María Sims [address] [place] [address] PCP - [facility]08/28/23 de Ana María Sims [address] [place] [address] [facility]08/31/23Team MemberRelationshipSpecialtyStart DateEnd Date Ana María Sims [address] [place] [address] PCP - [facility]08/28/23 de Ana María Sims [address] [place] [address] [facility]08/31/23Team MemberRelationshipSpecialtyStart DateEnd Date Ana María Sims [address] [place] [address] PCP - [facility]08/28/23 de Ana María Sims [address] [place] [address] [facility]08/31/23Team MemberRelationshipSpecialtyStart DateEnd Date Ana María Sims [address] [place] [address] [facility]/28/23 de Ana María Sims [address] [place] [address] Referringmily Medicine08/31/23Team MemberRelationshipSpecialtyStart DateEnd Date nm Ana María Sims [address] [place] [address] PCP - [facility]08/28/23 de Ana María Sims [address] [place] [address] [facility]erring[facility]08/31/23Team MemberRelationshipSpecialtyStart DateEnd Date nm Ana María Sims [address] [place] [address] PCP - [facility]08/28/23 de Ana María Sims [address] [place] [address] [facility]erring[facility]08/31/23Team MemberRelationshipSpecialtyStart DateEnd Date nm Ana María Sims [address] [place] [address] [facility] nm Ana María Sims [address] [place] [address] [facility]erring[facility]08/31/23Team MemberRelationshipSpecialtyStart DateEnd Date nm Ana María Sims [address] [place] [address] [facility]/28/23 nm Ana María Sims [address] [place] [address] [facility]erring[facility]08/31/23Team MemberRelationshipSpecialtyStart DateEnd Date nm Ana María Sims [address] [place] [address] PCP - [facility]08/28/23 de Ana María Sims [address] [place] [address] [facility]erring[facility]08/31/23Team MemberRelationshipSpecialtyStart DateEnd nm Ana María Sims [address] [place] [address] PCP - [facility]08/28/23 nm Ana María Sims [address] [place] [address] [facility]erring[facility]08/31/23Team MemberRelationshipSpecialtyStart DateEnd nm Ana María Sims [address] [place] [address] [facility]/28/23 nm Ana María Sims [address] [place] [address] [facility]erring[facility]08/31/23Team MemberRelationshipSpecialtyStart DateEnd Date nm Ana María Sims [address] [place] [address] PCP - Generalmily Medicine08/28/23 de Ana María Sims [address] [place] [address] ReferringFamily Medicine08/31/23Team MemberRelationshipSpecialtyStart DateEnd Date nm Ana María Sims [address] [place] [address] [facility]08/28/23 nm Ana María Sims [address] [place] [address] Referring[facility]08/31/23Team MemberRelationshipSpecialtyStart DateEnd Date nm Ana María Sims [address] [place] [address] [facility]/28/23 nm Ana María Sims [address] [place] [address] [facility]erring[facility]08/31/23Team MemberRelationshipSpecialtyStart DateEnd Date nm Ana María Sims [address] [place] [address] [facility]08/28/23 nm Ana María Sims [address] [place] [address] ReferringSelect [facility]08/31/23Team MemberRelationshipSpecialtyStart DateEnd Date nm Ana María Sims [address] [place] [address] PCP - GeneralFamily Medicine08/28/23 de Ana María Sims [address] [place] [address] ReferringFamily Medicine08/31/23Team MemberRelationshipSpecialtyStart DateEnd Date Ana María Mckeon [address] [place] [address] PCP - GeneralFamily Medicine08/28/23 Ana María Mckeon [address] [place] [address] ReferringFamily Medicine08/31/23Team MemberRelationshipSpecialtyStart DateEnd Date Ana María Mckeon [address] [place] [address] PCP - GeneralFamily Medicine08/28/23 Ana María Mckeon [address] [place] [address] ReferringFamily Medicine08/31/23Team MemberRelationshipSpecialtyStart DateEnd Date Ana María Adorno MD [address] [place] [address] PCP - GeneralFamily Zdfzwyfx62/4/23 Tiffanie Moreno PA [address] [place] [address] [place] [address] PCP - [facility]07/09/2211Team MemberRelationshipSpecialty Start DateEnd Date Ana María Adorno MD [address] [place] [address] PCP - GeneralFamily Guuratwp77/4/23 Tiffanie Moreno PA [address] [place] [address] [place] [address] PCP - Medical [facility] [employer]07/09/2211Team MemberRelationshipSpecialty Start DateEnd Date Ana María Adorno MD [address] [facility] [facility] [place] [address] PCP - Generalmily Mtnoxtag08/4/23 Tiffanie Moreno PA [address] [place] [address] [place] [address] PCP - Medical [facility] [employer]07/09/2211Team MemberRelationshipSpecialty Start DateEnd Date Ana María Mckeon [address] [place] [address] [facility] - [facility]08/28/23 Ana María Mckeon [address] [place] [address] Referringmily Medicine08/31/23Team MemberRelationshipSpecialtyStart DateEnd Date AnaM aría Mckeon [address] [place] [address] PCP - Generalmily Medicine08/28/23 Ana María Mckeon [address] [place] [address] Referringmily Medicine08/31/23Team MemberRelationshipSpecialtyStart DateEnd Date Claire De Los Santos DO [address] [facility] [address] [place] [phone] PCP - GeneralNeurology1Team MemberRelationshipSpecialtyStart DateEnd Date Ana María Adorno MD [address] [place] [address] PCP - GeneralFamily Ombywnus09/4/23 Tiffanie Moreno PA [address] [place] [address] PCP - Medical [employer]07/09/2211Team MemberRelationshipSpecialty Start DateEnd Date Ana María Adorno MD [address] [place] [address] PCP - GeneralFamily Iuvlliex81/4/23 Tiffanie Moreno PA [address] [place] [address] PCP - Medical [facility] [employer]07/09/2211Team MemberRelationshipSpecialty Start DateEnd Date Cristian Teixeira APRN-TOE STRIPPER [address] [place] [address] PCP - GeneralFamily Hcrnzhfr03/6/18Team MemberRelationshipSpecialtyStart DateEnd Date Cristian Teixeira APRN-TOE STRIPPER [address] [place] [address] PCP - GeneralFamily Dkodqcdz70/6/18Team MemberRelationshipSpecialtyStart DateEnd Date Cristian Teixeira APRN-TOE STRIPPER [address] [place] [address] [facility] - [facility] Jmlafhty70/6/18Team MemberRelationshipSpecialtyStart DateEnd Date Cristian Teixeira 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-TOE STRIPPER [address] [place] [address] PCP - [facility] Gsgojkrw88/6/18am MemberRelationshipSpecialtyStart DateEnd Date Cristian Teixeira, 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-TOE STRIPPER [address] [place] [address] PCP - [facility] Umxtrbdv25/6/18Team MemberRelationshipSpecialtyStart DateEnd Date Cristian Teixeira NP [address] [place] [address] Primary Care ProviderL[facility] Medicine02/12/25Te MemberRelationshipSpecialtyStart DateEnd Date Cristian Teixeira NP [address] [place] [address] Primary [facility] ProviderL[facility] Medicine02/12/25Te MemberRelationshipSpecialtyStart DateEnd Date Cristian Teixeira NP [address] [place] [address] Primary [facility] ProviderL[facility] Medicine02/12/25 MemberRelationshipSpecialtyStart DateEnd Date Cristian Teixeira NP [address] [place] [address] Primary [facility] ProviderL[facility] Medicine02/12/25 MemberRelationshipSpecialtyStart DateEnd Date Ana María Adorno MD PCP - GeneralL[facility] Chnohtxe69/4/238 Tiffanie Moreno PA [address] [place] [address] [place] [address] PCP - Medical [facility] Cristian Teixeira NP [address] [place] [address] Primary Care ProviderEm[facility]02/12/25Team MemberRelationshipSpecialtyStart DateEnd Date Cristian Teixeira NP [address] [place] [address] Primary Care ProviderEm[facility]02/12/25 FOR RECORDS PERTAINING TO PATIENTS WHO ARE [...] BE BASED ON THE PRIMARY CLINICAL RECORDS. [facility]. provides no warranty or guarantee of the accuracy or completeness of information in this document.
== END 2025-06-08 07:06 | disposition home or self-care (01) ==
LOC: MAMMO 07:05
PROVIDERS: Visit Provider Physician Assistant
DX: Z12.31 Encounter for screening mammogram for malignant neoplasm of breast (principal); Z78.0 Asymptomatic menopausal state; Z80.7 Family history of other malignant neoplasms of lymphoid, hematopoietic and related tissues; Z80.8 Family history of malignant neoplasm of other organs or systems
CPT/HCPCS: 77063; 77067; 77080